=== PATIENT | female | born 1940 | race Caucasian/White ===

== ENCOUNTER → 2016-06-07 | Outpatient (CLI) | payer MEDICARE, BC ==
--- NOTE | 2016-06-08 07:17 | US ---
EXAMINATION TYPE: US kidneys/renal and bladder DATE OF EXAM: 06/07/2016 4:07 PM COMPARISON: Previous study dated 10/18/2014. CLINICAL HISTORY: N30.20 Recurrent UTI. EXAM MEASUREMENTS: Right Kidney: 11.4 x 4.7x 4.4 cm Left Kidney: 14.1 x 4.0 x 3.8 cm Post Void Residual Volume: 17.5 mL TECHNOLOGIST IMPRESSION: wnl Right Kidney: prominent renal pelvis may suggest extrarenal pelvis Left Kidney: larger than right kidney and appears with renal cortex noted lateral to medial at mid po le with dual sinuses suggesting dual collecting system. Bladder: wnl Bilateral Jets seen: right more prominent than left Normal Post Void Residual: Yes IMPRESSION: 1. 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
== END | disposition home or self-care (01) ==
LOC: RADUSWWP 15:26
PROVIDERS: ATTEND Urology
DX: N30.20 Other chronic cystitis without hematuria (principal); Z88.2 Allergy status to sulfonamides; Z88.5 Allergy status to narcotic agent
CPT/HCPCS: 76770

== ENCOUNTER 2017-03-10 13:25 | Observation (INO) | payer MEDICARE, BC ==
[2017-03-10] MEDS ORDERED: PANTOPRAZOLE 40 MG/10 ML VIAL IVP STA (13:43)
[2017-03-10] MEDS ORDERED: SODIUM CHLORIDE 0.9% 1,000 ML IV STA (13:43)
--- NOTE | 2017-03-10 13:46 | ED ---
General Adult HPI - General Chief complaint: GI Bleed Stated complaint: Rectal Bleed Time Seen by Provider: 03/10/17 13:37 Source: patient, RN notes reviewed Mode of arrival: wheelchair Limitations: no limitations - History of Present Illness Initial comments: Patient is a pleasant 76-year-old female presenting to the emergency Department with rectal bleeding. Onset of symptoms was a couple hours ago. Patient did have several hours of diarrhea early this morning. Patient had an episode of the few teaspoons of bright red blood with clots prior to arrival. No abdominal pain. No nausea vomiting. Patient feels slightly lightheaded. No dyspnea. Patient did have similar symptoms years ago associated with a diverticular bleed. - Related Data Home Medications Medication Instructions Recorded Confirmed Aspirin [Adult Low Dose Aspirin EC] 81 mg PO DAILY 05/03/15 03/10/17 Atenolol 25 mg PO QAM 05/03/15 03/10/17 Biotin 5 mg PO DAILY 05/03/15 03/10/17 Cholecalciferol [Vitamin D3] 1,000 units PO DAILY 05/03/15 03/10/17 Levothyroxine Sodium [Synthroid] 50 mcg PO QAM 05/03/15 03/10/17 Naproxen Sodium [Aleve] 220 mg PO BID PRN 05/03/15 03/10/17 Allergies Allergy/AdvReac Type Severity Reaction Status Date / Time Sulfa (Sulfonamide Allergy Rash/Hives Verified 03/10/17 13:50 Antibiotics) codeine AdvReac Nausea & Verified 03/10/17 13:50 Vomiting Review of Systems ROS Statement: Those systems with pertinent positive or pertinent negative responses have been documented in the HPI. ROS Other: All systems not noted in ROS Statement are negative. Constitutional: Denies: fever Eyes: Denies: eye pain ENT: Denies: ear pain Respiratory: Denies: cough Cardiovascular: Denies: chest pain Endocrine: Denies: fatigue Gastrointestinal: Reports: hematochezia. Denies: abdominal pain Genitourinary: Denies: dysuria Musculoskeletal: Denies: back pain Skin: Denies: rash Neurological: Denies: weakness Past Medical History Past Medical History: GI Bleed, Hypertension, Osteoarthritis (OA), Thyroid Disorder Additional Past Medical History / Comment(s): HX OF RECTAL BLEED, "DIFFICULTY SWALLOWING FOOD" NOT ABLE TO FULLY BEND LEFT KNEE,steroid injectection rt knee July 2015. History of Any Multi-Drug Resistant Organisms: None Reported Past Surgical History: Back Surgery, Joint Replacement, Orthopedic Surgery Additional Past Surgical History / Comment(s): CERVICAL FUSION FROM C3-7, LEFT KNEE REPLACED &THEN 3 DIFFERENT REVISIONS,EGD Past Anesthesia/Blood Transfusion Reactions: No Reported Reaction Past Psychological History: No Psychological Hx Reported Smoking Status: Former smoker Past Alcohol Use History: None Reported Past Drug Use History: None Reported - Past Family History Mother Additional Family Medical History / Comment(s): crebral hemorrhage at age 51 Father Additional Family Medical History / Comment(s): emphysema General Exam Limitations: no limitations General appearance: alert, in no apparent distress Head exam: Present: atraumatic Eye exam: Present: normal appearance, PERRL ENT exam: Present: normal oropharynx Neck exam: Present: normal inspection Respiratory exam: Present: normal lung sounds bilaterally Cardiovascular Exam: Present: tachycardia GI/Abdominal exam: Present: soft, normal bowel sounds. Absent: distended, tenderness, pulsatile mass Rectal exam: Present: normal inspection, other (Questionable small amount of blood) Extremities exam: Present: normal inspection Neurological exam: Present: alert Psychiatric exam: Present: normal affect, normal mood Skin exam: Present: normal color Course Vital Signs 03/10/17 03/10/17 03/10/17 13:30 14:00 15:00 Temperature 97.7 F Pulse Rate 114 H 100 83 Respiratory 18 20 20 Rate Blood Pressure 179/107 137/87 134/76 O2 Sat by Pulse 98 96 97 Oximetry Medical Decision Making - Medical Decision Making Patient reevaluated and resting comfortably in bed. Patient updated on results and plan. Case was discussed in detail with Dr. Kilgore, who will admit for Dr. Solis. - Lab Data Result diagrams: 03/10/17 13:53 03/10/17 13:52 Lab Results 03/10/17 03/10/17 03/10/17 Range/Units 13:52 13:52 13:52 WBC (3.8-10.6) k/uL RBC (3.80-5.40) m/uL Hgb (11.4-16.0) gm/dL Hct (34.0-46.0) % MCV (80.0-100.0) fL MCH (25.0-35.0) pg MCHC (31.0-37.0) g/dL RDW (11.5-15.5) % Plt Count (150-450) k/uL Neutrophils % % Lymphocytes % % Monocytes % % Eosinophils % % Basophils % % Neutrophils # (1.3-7.7) k/uL Lymphocytes # (1.0-4.8) k/uL Monocytes # (0-1.0) k/uL Eosinophils # (0-0.7) k/uL Basophils # (0-0.2) k/uL PT (9.0-12.0) sec INR (<1.2) APTT (22.0-30.0) sec Sodium 136 L (137-145) mmol/L Potassium 4.0 (3.5-5.1) mmol/L Chloride 102 (98-107) mmol/L Carbon Dioxide 22 (22-30) mmol/L Anion Gap 12 mmol/L BUN 22 H (7-17) mg/dL Creatinine 0.68 (0.52-1.04) mg/dL Est GFR (MDRD) Af Amer >60 (>60 ml/min/1.73 sqM) Est GFR (MDRD) Non-Af >60 (>60 ml/min/1.73 sqM) Glucose 148 H (74-99) mg/dL Calcium 9.9 (8.4-10.2) mg/dL Total Bilirubin 0.5 (0.2-1.3) mg/dL AST 23 (14-36) U/L ALT 31 (9-52) U/L Alkaline Phosphatase 107 (38-126) U/L Total Creatine Kinase 67 (30-135) U/L CK-MB (CK-2) 2.0 (0.0-2.4) ng/mL CK-MB (CK-2) Rel Index 3.0 Troponin I <0.012 (0.000-0.034) ng/mL Total Protein 7.6 (6.3-8.2) g/dL Albumin 4.5 (3.5-5.0) g/dL Stool Occult Blood Positive H (Negative) Blood Type Blood Type Recheck Antibody Screen Spec Expiration Date 03/10/17 03/10/17 03/10/17 Range/Units 13:52 13:52 13:53 WBC 8.3 (3.8-10.6) k/uL RBC 4.95 (3.80-5.40) m/uL Hgb 15.4 (11.4-16.0) gm/dL Hct 45.2 (34.0-46.0) % MCV 91.2 (80.0-100.0) fL MCH 31.1 (25.0-35.0) pg MCHC 34.1 (31.0-37.0) g/dL RDW 12.6 (11.5-15.5) % Plt Count 277 (150-450) k/uL Neutrophils % 86 % Lymphocytes % 8 % Monocytes % 3 % Eosinophils % 2 % Basophils % 0 % Neutrophils # 7.2 (1.3-7.7) k/uL Lymphocytes # 0.7 L (1.0-4.8) k/uL Monocytes # 0.3 (0-1.0) k/uL Eosinophils # 0.2 (0-0.7) k/uL Basophils # 0.0 (0-0.2) k/uL PT 10.4 (9.0-12.0) sec INR 1.1 (<1.2) APTT 22.4 (22.0-30.0) sec Sodium (137-145) mmol/L Potassium (3.5-5.1) mmol/L Chloride (98-107) mmol/L Carbon Dioxide (22-30) mmol/L Anion Gap mmol/L BUN (7-17) mg/dL Creatinine (0.52-1.04) mg/dL Est GFR (MDRD) Af Amer (>60 ml/min/1.73 sqM) Est GFR (MDRD) Non-Af (>60 ml/min/1.73 sqM) Glucose (74-99) mg/dL Calcium (8.4-10.2) mg/dL Total Bilirubin (0.2-1.3) mg/dL AST (14-36) U/L ALT (9-52) U/L Alkaline Phosphatase (38-126) U/L Total Creatine Kinase (30-135) U/L CK-MB (CK-2) (0.0-2.4) ng/mL CK-MB (CK-2) Rel Index Troponin I (0.000-0.034) ng/mL Total Protein (6.3-8.2) g/dL Albumin (3.5-5.0) g/dL Stool Occult Blood (Negative) Blood Type AB Positive Blood Type Recheck AB Pos Antibody Screen NEGATIVE Spec Expiration Date 03/13/2017 - 8 Disposition Clinical Impression: Lower gastrointestinal hemorrhage Disposition: ADMITTED IP TO THIS [facility] Condition: Stable Referrals: Severino Solis MD [Primary Care Provider] - 1-2 days Decision Time: 15:31
[2017-03-10 14:00] LABS: Basophils % (A) 0 %; CH 31.5; CHCM 34.7; Eosinophils # (A) 0.2 k/uL (0-0.7); Eosinophils % (A) 2 %; HCT 45.2 % (34.0-46.0); HDW 2.54; HGB 15.4 gm/dL (11.4-16.0); Luc # (Auto) 0.07; Luc % (Auto) 1; Lymphocytes # (A) 0.7 k/uL (1.0-4.8); Lymphocytes % (A) 8 %; MCH 31.1 pg (25.0-35.0); MCHC 34.1 g/dL (31.0-37.0); MCV 91.2 fL (80.0-100.0); Mean Platelet Volume 6.5; Monocytes # (A) 0.3 k/uL (0-1.0); Monocytes % (A) 3 %; Neutrophils # (A) 7.2 k/uL (1.3-7.7); Neutrophils % (A) 86 %; RBC 4.95 m/uL (3.80-5.40); RDW 12.6 % (11.5-15.5); WBC 8.3 k/uL (3.8-10.6); WBC (Perox) 8.15
[2017-03-10 14:10] LABS: INR 1.1 (<1.2); Partial Thromboplastin Time 22.4 sec (22.0-30.0); Prothrombin Time 10.4 sec (9.0-12.0)
[2017-03-10 14:11] LABS: ALT 31 U/L (9-52); AST 23 U/L (14-36); Alkaline Phosphatase 107 U/L (38-126); Anion Gap 12 mmol/L; Blood Urea Nitrogen 22 mg/dL (7-17); Calcium 9.9 mg/dL (8.4-10.2); Carbon Dioxide 22 mmol/L (22-30); Chloride 102 mmol/L (98-107); Glucose 148 mg/dL (74-99); Non-African American GFR(MDRD) >60 (>60 ml/min/1.73 sqM); Sodium 136 mmol/L (137-145); Total Bilirubin 0.5 mg/dL (0.2-1.3); Total Protein 7.6 g/dL (6.3-8.2)
[2017-03-10 14:23] LABS: Creatine Kinase 67 U/L (30-135)
[2017-03-10 14:35] LABS: Troponin I <0.012 ng/mL (0.000-0.034)
[2017-03-10] MEDS ORDERED: NALOXONE 0.4 MG/ML 1 ML VIAL IV PRN (15:31)
[2017-03-10 17:24] VITALS: BMI 25.6
[2017-03-10] MEDS: ACETAMINOPHEN TAB 500 MG TAB PO PRN (18:40)
[2017-03-10] MEDS: LEVOTHYROXINE 50 MCG TAB PO SCH (18:46)
[2017-03-10] MEDS: ATENOLOL 25 MG TAB PO SCH (18:46)
[2017-03-10] MEDS: SODIUM CHLORIDE 0.9% 1,000 ML IV SCH (18:46)
[2017-03-10 19:36] LABS: CH 30.8; CHCM 32.6; HCT 43.7 % (34.0-46.0); HDW 2.31; HGB 13.9 gm/dL (11.4-16.0); MCH 30.4 pg (25.0-35.0); MCHC 31.9 g/dL (31.0-37.0); MCV 95.2 fL (80.0-100.0); Mean Platelet Volume 7.3; RBC 4.59 m/uL (3.80-5.40); WBC 5.7 k/uL (3.8-10.6)
[2017-03-11 02:21] LABS: Basophils % (A) 0 %; CH 31.2; CHCM 34.1; Eosinophils # (A) 0.2 k/uL (0-0.7); Eosinophils % (A) 3 %; HDW 2.48; HGB 13.9 gm/dL (11.4-16.0); Luc % (Auto) 1; Lymphocytes # (A) 0.9 k/uL (1.0-4.8); Lymphocytes % (A) 12 %; MCH 30.4 pg (25.0-35.0); MCV 92.1 fL (80.0-100.0); Mean Platelet Volume 6.5; Monocytes # (A) 0.4 k/uL (0-1.0); Monocytes % (A) 5 %; Neutrophils # (A) 6.3 k/uL (1.3-7.7); Neutrophils % (A) 79 %; RBC 4.57 m/uL (3.80-5.40); RDW 12.8 % (11.5-15.5); WBC (Perox) 7.83
[2017-03-11] MEDS ORDERED: ONDANSETRON 4 MG/2 ML VIAL IVP PRN (04:58)
[2017-03-11 06:16] LABS: Basophils % (A) 0 %; CH 31.2; CHCM 32.2; Eosinophils # (A) 0.2 k/uL (0-0.7); Eosinophils % (A) 3 %; HCT 47.9 % (34.0-46.0); HGB 14.8 gm/dL (11.4-16.0); Luc # (Auto) 0.07; Luc % (Auto) 1; Lymphocytes # (A) 0.8 k/uL (1.0-4.8); Lymphocytes % (A) 10 %; MCH 30.2 pg (25.0-35.0); Monocytes # (A) 0.4 k/uL (0-1.0); Monocytes % (A) 5 %; Neutrophils # (A) 6.4 k/uL (1.3-7.7); Neutrophils % (A) 81 %; RBC 4.92 m/uL (3.80-5.40); RDW 14.3 % (11.5-15.5); WBC 7.9 k/uL (3.8-10.6); WBC (Perox) 7.93
[2017-03-11 06:20] LABS: MCV 97.3 fL (80.0-100.0)
[2017-03-11] MEDS: LEVOTHYROXINE 50 MCG TAB PO SCH (06:55)
[2017-03-11] MEDS ORDERED: PANTOPRAZOLE 40 MG/10 ML VIAL IV SCH (09:00)
--- NOTE | 2017-03-11 10:59 | P.HPIM ---
History of Present Illness H&P Date: 03/11/17 Chief Complaint: Blood per rectum This is a 76-year-old female with a known past medical history of a diverticular bleed in 2069 which she required ICU care and blood transfusions. She also has a history of hypertension, hypothyroidism, esophageal strictures requiring dilation and peptic ulcer disease. Patient reports yesterday morning around 5:00 she started to have diarrhea multiple episodes as well as some vomiting. And then around 9:00 she started to have blood in the stools. She had one bloody bowel movement with about a couple of blood. Then continued to have bleeding per rectum. Therefore she came into the emergency room she was concerned about having another severe GI bleed. Hemoglobin on admission 15.4 did drop down to 13.9 and now she is at 14.8. Per patient and nursing staff patient is still having small amounts of red blood per rectum about a teaspoon in size. She's been placed on IV Protonix. Stool for occult blood is positive. She's no longer having any diarrhea or vomiting. Last colonoscopy was about 7 years ago. She does report lower abdominal pain during bowel movements. She denies any fever chills or sweats. Denies any chest pain or shortness of breath. Denies any burning with urination. Patient denies being on antibiotics recently or any sick contacts. Denies any fevers chills or sweats. GI service has been consulted. Monitor CBC closely. Continue with IV fluid hydration. Review of Systems Please refer to HPI otherwise unremarkable Past Medical History Past Medical History: GI Bleed, Hypertension, Osteoarthritis (OA), Thyroid Disorder Additional Past Medical History / Comment(s): HX OF DIVERTICULAR BLEED, "DIFFICULTY SWALLOWING FOOD"- esopagus stretched, NOT ABLE TO FULLY BEND LEFT KNEE,steroid injectection rt knee January 2017 History of Any Multi-Drug Resistant Organisms: None Reported Past Surgical History: Back Surgery, Section, Hysterectomy, Joint Replacement, Orthopedic Surgery, Tonsillectomy Additional Past Surgical History / Comment(s): CERVICAL FUSION FROM C3-7, LEFT KNEE REPLACED &THEN 3 DIFFERENT REVISIONS,EGD Past Anesthesia/Blood Transfusion Reactions: No Reported Reaction Past Psychological History: No Psychological Hx Reported Smoking Status: Former smoker Past Alcohol Use History: None Reported Additional Past Alcohol Use History / Comment(s): QUIT SMOKING 2006, STARTED AT AGE 34 (1974) SMOKED 1PPD ON AVERAGE Past Drug Use History: None Reported - Past Family History Mother Additional Family Medical History / Comment(s): crebral hemorrhage at age 51 Father Additional Family Medical History / Comment(s): emphysema Medications and Allergies Home Medications Medication Instructions Recorded Confirmed Type Aspirin [Adult Low Dose Aspirin EC] 81 mg PO DAILY 05/03/15 03/10/17 History Atenolol 25 mg PO QAM 05/03/15 03/10/17 History Biotin 5 mg PO DAILY 05/03/15 03/10/17 History Cholecalciferol [Vitamin D3] 1,000 units PO DAILY 05/03/15 03/10/17 History Levothyroxine Sodium [Synthroid] 50 mcg PO QAM 05/03/15 03/10/17 History Naproxen Sodium [Aleve] 220 mg PO BID PRN 05/03/15 03/10/17 History Omeprazole 20 mg PO DAILY 03/10/17 03/10/17 History Allergies Allergy/AdvReac Type Severity Reaction Status Date / Time Sulfa (Sulfonamide Allergy Rash/Hives Verified 03/10/17 13:50 Antibiotics) codeine AdvReac Nausea & Verified 03/10/17 13:50 Vomiting Physical Exam Vitals: Vital Signs Temp Pulse Pulse Resp BP BP Pulse Ox 03/11/17 08:00 97.8 F 57 L 16 131/64 97 03/11/17 05:38 58 L 18 149/64 96 03/11/17 03:52 18 03/11/17 00:14 98.6 F 72 18 149/89 97 03/10/17 23:20 16 03/10/17 20:00 98.7 F 91 16 168/96 97 03/10/17 16:13 98.1 F 78 16 130/88 95 03/10/17 15:55 98.7 F 99 20 137/87 99 03/10/17 15:00 83 20 134/76 97 03/10/17 14:00 100 20 137/87 96 03/10/17 13:30 97.7 F 114 H 18 179/107 98 Intake and Output 03/10/17 03/11/17 03/11/17 22:59 06:59 14:59 Output Total 4 Balance -4 Output: Urine 4 Other: Voiding Method Toilet Toilet Toilet # Voids 2 # Bowel Movements 4 Weight 63.503 kg Head normocephalic Neck supple Lungs clear to auscultation bilaterally no wheezing or crackles Heart regular rate and rhythm S1-S2, no rub or gallop Abdomen is soft nontender nondistended positive bowel sounds no hepatosplenomegaly Extremities no edema Neuro alert and orientated to 3 Results CBC & Chem 7: 03/11/17 05:57 03/10/17 13:52 Labs: Abnormal Lab Results - Last 24 Hours (Table) 03/10/17 03/10/17 03/10/17 Range/Units 13:52 13:52 13:53 Hct (34.0-46.0) % Lymphocytes # 0.7 L (1.0-4.8) k/uL Sodium 136 L (137-145) mmol/L BUN 22 H (7-17) mg/dL Glucose 148 H (74-99) mg/dL Stool Occult Blood Positive H (Negative) 03/11/17 03/11/17 Range/Units 01:48 05:57 Hct 47.9 H (34.0-46.0) % Lymphocytes # 0.9 L 0.8 L (1.0-4.8) k/uL Sodium (137-145) mmol/L BUN (7-17) mg/dL Glucose (74-99) mg/dL Stool Occult Blood (Negative) Thrombosis Risk Factor Assmnt - Choose All That Apply Any of the Below Risk Factors Present?: Yes Each Factor Represents 1 point: Obesity (BMI >25) Other Risk Factors: Yes Each Risk Factor Represents 3 Points: Age 75 years or older Thrombosis Risk Factor Assessment Total Risk Factor Score: 4 Thrombosis Risk Factor Assessment Level: Moderate Risk Assessment and Plan Assessment: 1. Acute lower GI bleed with bright red blood per rectum. Hemoglobin is stable at 14.8. Could be secondary to a diverticular bleed. Await GI evaluation. Continue with IV Protonix. GI service has been consulted for possible colonoscopy. Patient does have a known history of previous diverticular bleed. Check CBC at noon. Discontinue aspirin and discontinue Aleve. Continue IV fluid hydration 2. Vomiting and diarrhea: Exact etiology unclear. Now resolved. 3. History of esophageal stricture requiring dilation 4. Essential hypertension: Resume atenolol 5. Hypothyroidism continue Synthroid 6. History of peptic ulcer disease DVT prophylaxis SCDs and GI prophylaxis Protonix Time with Patient: Greater than 30 (Greater than 50% of the total time spent in counseling and coordination of care.I performed an examination of the patient and discussed their management with the physician Heat Sealing Machine Operator. I have reviewed the Physician Heat Sealing Machine Operator's notes and agree with the documented findings and plan of care)
[2017-03-11 12:09] LABS: CH 31.2; CHCM 33.7; HCT 42.1 % (34.0-46.0); HDW 2.48; HGB 13.8 gm/dL (11.4-16.0); MCH 30.6 pg (25.0-35.0); MCHC 32.9 g/dL (31.0-37.0); MCV 93.2 fL (80.0-100.0); Mean Platelet Volume 6.9; RBC 4.52 m/uL (3.80-5.40); RDW 12.8 % (11.5-15.5); WBC 7.5 k/uL (3.8-10.6)
[2017-03-11] MEDS: ATENOLOL 25 MG TAB PO SCH (12:09)
[2017-03-11] MEDS: SODIUM CHLORIDE 0.9% 1,000 ML IV SCH (18:57)
[2017-03-11] MEDS: ACETAMINOPHEN TAB 500 MG TAB PO PRN (20:43)
[2017-03-12] MEDS: LEVOTHYROXINE 50 MCG TAB PO SCH (06:37)
[2017-03-12 07:24] LABS: Basophils % (A) 0 %; CH 31.3; CHCM 33.8; Eosinophils # (A) 0.4 k/uL (0-0.7); Eosinophils % (A) 6 %; HCT 42.5 % (34.0-46.0); HGB 13.7 gm/dL (11.4-16.0); Luc % (Auto) 2; Lymphocytes # (A) 1.2 k/uL (1.0-4.8); Lymphocytes % (A) 20 %; MCH 30.1 pg (25.0-35.0); MCHC 32.3 g/dL (31.0-37.0); MCV 93.2 fL (80.0-100.0); Mean Platelet Volume 6.5; Monocytes # (A) 0.4 k/uL (0-1.0); Monocytes % (A) 7 %; Neutrophils # (A) 3.8 k/uL (1.3-7.7); Neutrophils % (A) 65 %; RBC 4.56 m/uL (3.80-5.40); RDW 12.9 % (11.5-15.5); WBC 5.8 k/uL (3.8-10.6); WBC (Perox) 5.78
[2017-03-12 07:43] LABS: ALT 31 U/L (9-52); AST 19 U/L (14-36); Alkaline Phosphatase 86 U/L (38-126); Blood Urea Nitrogen 10 mg/dL (7-17); Calcium 9.3 mg/dL (8.4-10.2); Carbon Dioxide 23 mmol/L (22-30); Glucose 102 mg/dL (74-99); Non-African American GFR(MDRD) >60 (>60 ml/min/1.73 sqM); Total Bilirubin 0.8 mg/dL (0.2-1.3); Total Protein 6.3 g/dL (6.3-8.2)
[2017-03-12] MEDS: CHOLECALCIFEROL 1,000 UNIT TAB PO SCH (08:14)
[2017-03-12] MEDS: ATENOLOL 25 MG TAB PO SCH (08:14)
[2017-03-12] MEDS: PANTOPRAZOLE 40 MG TABLET PO SCH (08:14)
[2017-03-12] MEDS ORDERED: PEG 3350-NA SULF,BICARB,CL/KCL 4,000 ML BOTTLE PO STA (08:29)
--- NOTE | 2017-03-12 08:31 | P.CONS ---
History of Present Illness - Reason for Consult Consult date: 03/12/17 rectal bleeding Requesting physician: Severino Solis - History of Present Illness 76-year-old female presented with acute painless bleeding that started Saturday bright red per rectum. Lasted for about 4 hours. She has a history of diverticulosis with massive diverticular bleed about 10 years ago. Last colonoscopy screening 7 years ago. Presently denies pain. No further bloody bowel movement. Denies fever chills hematemesis or melena. Hemoglobin 13.7- 14.8. BUN 22. Review of Systems Constitutional: Denies fever, chills, sweats, weight gain, or loss. HEENT: Negative for migraines, blurred vision or loss, earaches, drainage, tinnitus, oral mucosal lesions, dysphagia, or odynophagia. CARDIAC: Hypertension. Negative for chest pain, arrhythmias, or palpitation. RESPIRATORY: Negative for shortness of breath, hemoptysis, cough, or sputum production. GI: See HPI for pertinent findings. : Negative for hematuria, urgency, frequency, polyuria, or dysuria. GYNc: Denies possibility of . Negative vaginal discharge. MUSCULOSKELETAL: Negative for muscle aches, swelling, arthritis, and arthralgias. NEUROLOGIC: Negative for stroke or TIA. ENDOCRINE: Negative for thyroid problems. SKIN: Negative for rash or itching. PSYCHIATRIC: Negative history for depression and anxiety Past Medical History Past Medical History: GI Bleed, Hypertension, Osteoarthritis (OA), Thyroid Disorder Additional Past Medical History / Comment(s): HX OF DIVERTICULAR BLEED, "DIFFICULTY SWALLOWING FOOD"- esopagus stretched, NOT ABLE TO FULLY BEND LEFT KNEE,steroid injectection rt knee January 2017 History of Any Multi-Drug Resistant Organisms: None Reported Past Surgical History: Back Surgery, Section, Hysterectomy, Joint Replacement, Orthopedic Surgery, Tonsillectomy Additional Past Surgical History / Comment(s): CERVICAL FUSION FROM C3-7, LEFT KNEE REPLACED &THEN 3 DIFFERENT REVISIONS,EGD Past Anesthesia/Blood Transfusion Reactions: No Reported Reaction Past Psychological History: No Psychological Hx Reported Smoking Status: Former smoker Past Alcohol Use History: None Reported Additional Past Alcohol Use History / Comment(s): QUIT SMOKING 2006, STARTED AT AGE 34 (1974) SMOKED 1PPD ON AVERAGE Past Drug Use History: None Reported - Past Family History Mother Additional Family Medical History / Comment(s): crebral hemorrhage at age 51 Father Additional Family Medical History / Comment(s): emphysema Medications and Allergies Home Medications Medication Instructions Recorded Confirmed Type Aspirin [Adult Low Dose Aspirin EC] 81 mg PO DAILY 05/03/15 03/10/17 History Atenolol 25 mg PO QAM 05/03/15 03/10/17 History Biotin 5 mg PO DAILY 05/03/15 03/10/17 History Cholecalciferol [Vitamin D3] 1,000 units PO DAILY 05/03/15 03/10/17 History Levothyroxine Sodium [Synthroid] 50 mcg PO QAM 05/03/15 03/10/17 History Naproxen Sodium [Aleve] 220 mg PO BID PRN 05/03/15 03/10/17 History Omeprazole 20 mg PO DAILY 03/10/17 03/10/17 History Allergies Allergy/AdvReac Type Severity Reaction Status Date / Time Sulfa (Sulfonamide Allergy Rash/Hives Verified 03/10/17 13:50 Antibiotics) codeine AdvReac Nausea & Verified 03/10/17 13:50 Vomiting Physical Exam Vitals: Vital Signs Temp Pulse Resp BP BP Pulse Ox 03/12/17 08:00 97.4 F L 56 L 18 130/66 97 03/12/17 04:00 98.1 F 67 18 137/76 99 03/12/17 00:00 18 03/11/17 20:00 18 03/11/17 19:52 98.1 F 59 L 18 171/59 94 L 03/11/17 16:00 98.7 F 60 16 140/72 94 L 03/11/17 12:00 56 L 16 03/11/17 11:55 98 F 56 L 16 122/68 96 Intake and Output 03/11/17 03/12/17 03/12/17 22:59 06:59 14:59 Intake Total 236 Balance 236 Intake: Oral 236 Other: Voiding Method Toilet Toilet # Voids 2 2 General appearance: The patient is alert, oriented, in no acute distress. HET: Head is normocephalic and atraumatic. Pupils are equal and reactive. Oropharynx is clear without lesions. Neck: Supple without lymphadenopathy. Trachea midline. Heart: S1 S2. Regular rate and rhythm. Lungs: No crackles or wheezes are heard. Abdomen: Soft, nontender, nondistended with bowel sounds. No peritoneal signs. No palpable organomegaly or masses. Extremities: Normal skin color and turgor. No cyanosis, rash, ulceration, clubbing, or edema. Radial and pedal pulses are 2/4 bilaterally. Neurological: No focal deficits. Strength and sensation are grossly intact. Results CBC & Chem 7: 03/12/17 06:20 03/12/17 06:20 Labs: Abnormal Lab Results - Last 24 Hours (Table) 03/12/17 Range/Units 06:20 Glucose 102 H (74-99) mg/dL Assessment and Plan (1) Lower gastrointestinal hemorrhage Narrative/Plan: Suspect diverticular bleed Current Visit: Yes Status: Acute Code(s): K92.2 - GASTROINTESTINAL HEMORRHAGE, UNSPECIFIED SNOMED Code(s): 36243837 (2) Diverticulosis of colon Current Visit: Yes Status: Chronic Code(s): K57.30 - DVRTCLOS OF LG INT W/O PERFORATION OR ABSCESS W/O BLEEDING SNOMED Code(s): 012981357 Plan: 1. Colonoscopy screening this afternoon. The dandy tender has discussed the risks, benefits and alternative therapies for the above-mentioned procedure and for both sedation/analgesia as well as necessary blood product administration, if indicated, as they pertain to this patient. The patient has indicated understanding and acceptance of the risks and procedures discussed. Thank you for this kind referral and the opportunity to participate in the care of your patient. This consultation was discussed with Dr. Arevalo. The impression and plan of care have been directed as dictated.
[2017-03-12 08:38] LABS: Anion Gap 7 mmol/L; Chloride 107 mmol/L (98-107); Potassium 3.9 mmol/L (3.5-5.1); Sodium 137 mmol/L (137-145)
--- NOTE | 2017-03-12 09:43 | P.PN ---
Subjective Progress Note Date: 03/12/17 This is a 76-year-old female with a known past medical history of a diverticular bleed in 2069 which she required ICU care and blood transfusions. She also has a history of hypertension, hypothyroidism, esophageal strictures requiring dilation and peptic ulcer disease. Patient reports yesterday morning around 5:00 she started to have diarrhea multiple episodes as well as some vomiting. And then around 9:00 she started to have blood in the stools. She had one bloody bowel movement with about a couple of blood. Then continued to have bleeding per rectum. Therefore she came into the emergency room she was concerned about having another severe GI bleed. Hemoglobin on admission 15.4 did drop down to 13.9 and now she is at 14.8. Per patient and nursing staff patient is still having small amounts of red blood per rectum about a teaspoon in size. She's been placed on IV Protonix. Stool for occult blood is positive. She's no longer having any diarrhea or vomiting. Last colonoscopy was about 7 years ago. She does report lower abdominal pain during bowel movements. She denies any fever chills or sweats. Denies any chest pain or shortness of breath. Denies any burning with urination. Patient denies being on antibiotics recently or any sick contacts. Denies any fevers chills or sweats. GI service has been consulted. Monitor CBC closely. Continue with IV fluid hydration. 03/12/2017 patient reports still having blood in stool as of 2:00 this morning. She is receiving GoLYTELY prep currently. She is scheduled for colonoscopy this afternoon. Denies any abdominal pain. Denies any chest pain sugars breath. Denies any nausea or vomiting. Denies any burning with urination. Objective - Vital Signs Vital signs: Vital Signs Temp 97.4 F L 03/12/17 08:00 Pulse 56 L 03/12/17 08:00 Resp 18 03/12/17 08:00 BP 130/66 03/12/17 08:00 Pulse Ox 97 03/12/17 08:00 Intake & Output 03/11/17 03/12/17 03/12/17 18:59 06:59 18:59 Intake Total 472 Balance 472 Intake: Oral 472 Other: Voiding Method Toilet Toilet Toilet # Voids 2 2 - Exam Head normocephalic Neck supple Lungs clear to auscultation bilaterally no wheezing or crackles Heart regular rate and rhythm S1-S2, no rub or gallop Abdomen is soft nontender nondistended positive bowel sounds no hepatosplenomegaly Extremities no edema Neuro alert and orientated to 3 - Labs CBC & Chem 7: 03/12/17 06:20 03/12/17 06:20 Labs: Abnormal Lab Results - Last 24 Hours (Table) 03/12/17 Range/Units 06:20 Glucose 102 H (74-99) mg/dL Assessment and Plan Assessment: 1. Acute lower GI bleed with bright red blood per rectum. Hemoglobin is stable at 14.8. Could be secondary to a diverticular bleed. Continue with IV Protonix. Patient does have a known history of previous diverticular bleed. Discontinue aspirin and discontinue Aleve. Continue IV fluid hydration. Patient's hemoglobin is stable. She is scheduled for colonoscopy this afternoon 2. Vomiting and diarrhea: Exact etiology unclear. Now resolved. 3. History of esophageal stricture requiring dilation 4. Essential hypertension: Resume atenolol 5. Hypothyroidism continue Synthroid 6. History of peptic ulcer disease DVT prophylaxis SCDs and GI prophylaxis Protonix I performed an examination of the patient and discussed their management with the physician Home Care And Home Health Aides Teacher. I have reviewed the Physician Home Care And Home Health Aides Teacher's notes and agree with the documented findings and plan of care
[2017-03-12] MEDS ORDERED: PROPOFOL 10 MG/ML 20 ML VIAL IV ONE (15:34)
[2017-03-12] MEDS ORDERED: LIDOCAINE 1% INJ 10MG/ML (20 ML MDV) ONE (15:34)
[2017-03-12] MEDS ORDERED: SODIUM CHLORIDE 0.9% 500 ML IV ONE (15:35)
--- NOTE | 2017-03-12 16:19 | P.PCN ---
Date of Procedure: 03/12/17 Procedure(s) Performed: Procedure: Colonoscopy and biopsy. Preoperative diagnosis: GI bleeding. Postoperative diagnosis: 1. Diverticulosis with no evidence of acute diverticulitis, strictures or bleeding. 2. Segment of colitis in the distal sigmoid with skip areas raising possibility of infectious, ischemic or self- limited colitis with no active bleeding. 3. No polyps or tumors. 4. Biopsy obtained in the sigmoid. Preparation: GoLYTELY prep. Sedation: Was provided by anesthesia. Brief clinical history: The patient is a 76-year-old female who presented with acute painless bleeding that started March 10 as bright red per rectum. Lasted for about 4 hours. She has a history of diverticulosis with massive diverticular bleed about 10 years ago. Last colonoscopy screening 7 years ago. Presently denies pain. No further bloody bowel movement. Denies fever chills hematemesis or melena. Hemoglobin 13.7-14.8. BUN 22. The details are summarized in the history and physical and dictated consultations and progress notes. Procedure: With the patient on her left lateral decubitus position and after informed consent and adequate sedation, the perianal area was inspected and it did not show any fissures or fistulas. There were no masses felt on digital rectal examination. The Olympus CFQ 160L video colonoscope was then inserted in the rectum in the usual fashion and advanced to the cecum. There were multiple diverticular orifices seen scattered along the length of the bowel with no evidence of acute diverticulitis, strictures or bleeding. The distal sigmoid showed a segment of colitis with edema, erythema, friability and submucosal hemorrhage with skip areas but no spontaneous bleeding probably representing resolving ischemic, infectious or self-limited colitis. The involved area was in the vicinity of diverticular orifices but not typical of diverticulitis. There were no polyps or tumors or any spontaneous bleeding. I took pictures of the involved segment as well as multiple biopsies. I retroflexed the endoscope in the rectum before the endoscope was withdrawn. The patient tolerated the procedure well. Plan: The patient was reassured. Will allow low-residue diet and monitor her progress. Further plans based on her course.
[2017-03-12] MEDS: SODIUM CHLORIDE 0.9% 1,000 ML IV SCH (18:25)
[2017-03-12] MEDS: ACETAMINOPHEN TAB 500 MG TAB PO PRN (18:50)
[2017-03-13 06:45] LABS: Basophils % (A) 0 %; CH 31.2; CHCM 33.9; Eosinophils # (A) 0.3 k/uL (0-0.7); Eosinophils % (A) 4 %; HCT 39.9 % (34.0-46.0); HDW 2.49; HGB 13.3 gm/dL (11.4-16.0); Luc # (Auto) 0.09; Luc % (Auto) 1; Lymphocytes % (A) 13 %; MCH 30.8 pg (25.0-35.0); MCHC 33.4 g/dL (31.0-37.0); MCV 92.4 fL (80.0-100.0); Mean Platelet Volume 6.6; Monocytes # (A) 0.4 k/uL (0-1.0); Monocytes % (A) 5 %; Neutrophils % (A) 77 %; RBC 4.32 m/uL (3.80-5.40); RDW 12.8 % (11.5-15.5); WBC 7.7 k/uL (3.8-10.6); WBC (Perox) 7.84
[2017-03-13 06:57] LABS: ALT 40 U/L (9-52); AST 22 U/L (14-36); Alkaline Phosphatase 86 U/L (38-126); Anion Gap 9 mmol/L; Blood Urea Nitrogen 19 mg/dL (7-17); Calcium 9.7 mg/dL (8.4-10.2); Carbon Dioxide 25 mmol/L (22-30); Chloride 104 mmol/L (98-107); Glucose 102 mg/dL (74-99); Non-African American GFR(MDRD) >60 (>60 ml/min/1.73 sqM); Potassium 4.2 mmol/L (3.5-5.1); Sodium 138 mmol/L (137-145); Total Bilirubin 0.5 mg/dL (0.2-1.3); Total Protein 6.3 g/dL (6.3-8.2)
[2017-03-13] MEDS: LEVOTHYROXINE 50 MCG TAB PO SCH (06:59)
[2017-03-13] MEDS: ACETAMINOPHEN TAB 500 MG TAB PO PRN (07:01)
[2017-03-13 07:14] LABS: Appearance,Urine Turbid (Clear); Bacteria,Urine Rare /hpf; Bilirubin,Urine Negative (Negative); Glucose,Urine (UA) Negative (Negative); Ketones,Urine Negative (Negative); Leukocyte Esterase,Urine Large (Negative); Nitrite,Urine Positive (Negative); PH, Urine 5.5 (5.0-8.0); Particle Count 28390; Protein,Urine Trace (Negative); RBC,Urine 8 /hpf (0-5); Specific Gravity,Urine 1.011 (1.001-1.035); Squamous Epithelial Cell,Urine 2 /hpf (0-4); UA Billing (MACRO vs. MICRO) MICRO; Urobilinogen,Urine <2.0 mg/dL (<2.0); WBC,Urine >182 /hpf (0-5)
[2017-03-13 08:03] VITALS: BP 177/76; PULSE 54; RESP 16; TEMP 98
[2017-03-13] MEDS: CHOLECALCIFEROL 1,000 UNIT TAB PO SCH (09:09)
[2017-03-13] MEDS: PANTOPRAZOLE 40 MG TABLET PO SCH (09:09)
[2017-03-13] MEDS: ATENOLOL 25 MG TAB PO SCH (09:09)
[2017-03-13] MEDS ORDERED: cefTRIAXone IN SWFI 1,000 MG/10 ML SYRINGE IVP STA (10:22)
--- NOTE | 2017-03-13 11:55 | P.DS ---
Providers Date of admission: 03/10/17 15:33 Expected date of discharge: 03/13/17 Attending physician: Severino Solis Primary care physician: Severino Solis [facility] Hospital Course: Diagnoses on discharge: 1. Acute lower GI bleed with bright red blood per rectum. Hemoglobin is stable at 14.8. Could be secondary to a diverticular bleed. Continue with IV Protonix. Patient does have a known history of previous diverticular bleed. Discontinue aspirin and discontinue Aleve. Continue IV fluid hydration. Patient's hemoglobin is stable. She is scheduled for colonoscopy this afternoon 2. Vomiting and diarrhea: Exact etiology unclear. Now resolved. 3. History of esophageal stricture requiring dilation 4. Essential hypertension: Resume atenolol 5. Hypothyroidism continue Synthroid 6. History of peptic ulcer disease Hospital course: This is a 76-year-old female with a known past medical history of a diverticular bleed in 2069 which she required ICU care and blood transfusions. She also has a history of hypertension, hypothyroidism, esophageal strictures requiring dilation and peptic ulcer disease. Patient reports yesterday morning around 5:00 she started to have diarrhea multiple episodes as well as some vomiting. And then around 9:00 she started to have blood in the stools. She had one bloody bowel movement with about a couple of blood. Then continued to have bleeding per rectum. Therefore she came into the emergency room she was concerned about having another severe GI bleed. Hemoglobin on admission 15.4 did drop down to 13.9 and now she is at 14.8. Per patient and nursing staff patient is still having small amounts of red blood per rectum about a teaspoon in size. She's been placed on IV Protonix. Stool for occult blood is positive. She's no longer having any diarrhea or vomiting. Last colonoscopy was about 7 years ago. She does report lower abdominal pain during bowel movements. She denies any fever chills or sweats. Denies any chest pain or shortness of breath. Denies any burning with urination. Patient denies being on antibiotics recently or any sick contacts. Denies any fevers chills or sweats. GI service has been consulted. Monitor CBC closely. Continue with IV fluid hydration. 03/12/2017 patient reports still having blood in stool as of 2:00 this morning. She is receiving GoLYTELY prep currently. She is scheduled for colonoscopy this afternoon. Denies any abdominal pain. Denies any chest pain sugars breath. Denies any nausea or vomiting. Denies any burning with urination. 03/13/2017 patient is alert and oriented no evidence of any further GI bleed, HGB stable, patient had a colonoscopy with Dr Arevalo that revealed diverticulosis with no evidence of acute diverticulitis, strictures or bleeding. Patient has evidence of UTI she was given a dose of IV Rocephin, she can be discharged home today, follow up in the office on Saturday. Patient Condition at Discharge: Stable Plan - Discharge Summary Discharge Rx Participant: Yes New Discharge Prescriptions: New Acetaminophen Tab [Tylenol] 500 mg PO Q6HR PRN tab PRN Reason: Fever and/ or Mild Pain Continue Levothyroxine Sodium [Synthroid] 50 mcg PO QAM Cholecalciferol [Vitamin D3] 1,000 units PO DAILY Biotin 5 mg PO DAILY Atenolol 25 mg PO QAM Omeprazole 20 mg PO DAILY Discontinued Naproxen Sodium [Aleve] 220 mg PO BID PRN PRN Reason: Pain Aspirin [Adult Low Dose Aspirin EC] 81 mg PO DAILY Discharge Medication List Atenolol 25 mg PO QAM 05/03/15 [History] Biotin 5 mg PO DAILY 05/03/15 [History] Cholecalciferol [Vitamin D3] 1,000 units PO DAILY 05/03/15 [History] Levothyroxine Sodium [Synthroid] 50 mcg PO QAM 05/03/15 [History] Omeprazole 20 mg PO DAILY 03/10/17 [History] Acetaminophen Tab [Tylenol] 500 mg PO Q6HR PRN tab 03/13/17 [Rx] Follow up Appointment(s)/Referral(s): Severino Solis MD [Primary Care Provider] - 1-2 days
== END 2017-03-13 13:09 | disposition home or self-care (01) ==
LOC: EC 13:25 → 3OBS 15:33
PROVIDERS: ADMIT Internal Medicine; ATTEND Internal Medicine
DX: K55.039 Acute (reversible) ischemia of large intestine, extent unspecified (principal); I10 Essential (primary) hypertension; M19.90 Unspecified osteoarthritis, unspecified site; E66.9 Obesity, unspecified; E03.9 Hypothyroidism, unspecified; N39.0 Urinary tract infection, site not specified; Z79.82 Long term (current) use of aspirin; Z79.899 Other long term (current) drug therapy; Z88.5 Allergy status to narcotic agent; Z88.2 Allergy status to sulfonamides; Z87.891 Personal history of nicotine dependence; Z87.11 Personal history of peptic ulcer disease; Z87.19 Personal history of other diseases of the digestive system; Z68.25 Body mass index [BMI] 25.0-25.9, adult; K57.30 Diverticulosis of large intestine without perforation or abscess without bleeding
CPT/HCPCS: 96361 ×2; 96375; 96376; 96374; 99285; 36415; 86900; 86901; 88305; 80053 ×3; 82550; 82553; 84484; 85025 ×4; 85027 ×2; 85610; 85730; 86850; 82272; 81001; 87086; 87077; 87186; 45380; G0378 ×4; J2405; J2001; J0696; J2704; C9113 ×2

== ENCOUNTER → 2017-04-05 | Outpatient (CLI) | payer MEDICARE, BC ==
--- NOTE | 2017-04-08 12:39 | MM ---
Reason for exam: screening (asymptomatic). Last mammogram was performed 1 year and 1 month ago. History: Patient is postmenopausal. Benign US biopsy breast VAD LT of the left breast, January 26, 2014. Took estrogen for 6 years beginning at age 48. Took progesterone for 6 years beginning at age 48. Physical Findings: A clinical breast exam by your physician is recommended on an annual basis and results should be correlated with mammographic findings. MG 3D Screening Mammo W/Cad Bilateral CC and MLO view(s) were taken. Prior study comparison: March 01, 2016, bilateral MG 3d screening mammo w/cad. January 24, 2015, bilateral MG screening mammo w CAD. The breast tissue is heterogeneously dense. This may lower the sensitivity of mammography. There are typically benign calcifications in both breasts. Previous mammotome biopsy in the left breast. No significant changes when compared with prior studies. ASSESSMENT: Benign, BI-RAD 2 RECOMMENDATION: Routine screening mammogram of both breasts in 1 year.
== END | disposition home or self-care (01) ==
LOC: RADMAMWWP 12:42
PROVIDERS: ATTEND Internal Medicine
DX: Z12.31 Encounter for screening mammogram for malignant neoplasm of breast (principal)
CPT/HCPCS: 77063; 77067

== ENCOUNTER → 2017-08-28 | Outpatient (CLI) | payer MEDICARE, BC ==
--- NOTE | 2017-08-29 08:48 | CT ---
EXAMINATION TYPE: CT chest w con DATE OF EXAM: 08/28/2017 COMPARISON: NONE HISTORY: No complaints at time of scan, symptoms and signs involving respiratory system CT DLP: 606 mGycm, Automated exposure control for dose reduction was used. CONTRAST: Performed injected with 100 mL of Isovue 300. TECHNIQUE: Axial images were obtained at 5 mm thick sections. Reconstructed images are reviewed on [employer] computer in the coronal plane. FINDINGS: Portion of the thyroid visualized is normal. Some minimal pneumonitis changes are in the dependent lung bases. Correlate persistent atelectasis. No enlarged mediastinal or hilar adenopathy is evident. The ascending aorta diameter at the level o f the main pulmonary artery is 3.5 cm. The main pulmonary artery diameter at the bifurcation is 2.1 cm. Coronary artery calcification is present. Limited CT sections are obtained through the upper abdomen. There is a small hiatal hernia present. C alcified granulomas within the spleen. Left lobe liver wraps around to the edge of the spleen. IMPRESSIONS: 1. Small hiatal hernia. 2. Scattered small areas of pneumonitis may be some minimal subsegmental atelectasis. Follow-up studi es can be performed as clinically indicated.
== END | disposition home or self-care (01) ==
LOC: RADCTMAIN 17:29
PROVIDERS: ATTEND Internal Medicine Rheumatology
DX: R09.89 Other specified symptoms and signs involving the circulatory and respiratory systems (principal)
CPT/HCPCS: 82565; 84520; 71260; 36415; Q9967

== ENCOUNTER 2018-03-12 08:57 | Day surgery (SDC) | payer MEDICARE, BC ==
[2018-03-10 15:52] VITALS: BMI 27.4
[~2018-03-12 08:57] MED LIST: LACTATED RINGERS 1,000 ML IV SCH; LIDOCAINE 1% 20 ML VIAL (10MG/ML) FOR IV START INTRADERMA PRN; MOXIFLOXACIN HCL 0.5% DROPS 3 ML BTL OP ONE; ONDANSETRON 4 MG/2 ML VIAL IVP ONE; TETRACAINE 0.5% OPHTH (PF) DROPS 4 ML BTL OP ONE; TIMOLOL 0.5% OPHTH DROPS 5 ML BTL OP ONE
[2018-03-12] MEDS: PHENYLEPHRINE 2.5% OPHTH DRP 2ML OP NR ×3 (09:55→10:07)
[2018-03-12] MEDS: CYCLOPENTOLATE 1% OPHTH SOLN 2 ML BTL OP ONE ×3 (09:58→10:11)
[2018-03-12 10:01] VITALS: TEMP 97.9
[2018-03-12] MEDS ORDERED: fentaNYL (PF) 50 MCG/ML 2 ML AMP ONE (11:06)
[2018-03-12] MEDS ORDERED: MIDAZOLAM 2 MG/2 ML VIAL ONE (11:06)
[2018-03-12] MEDS ORDERED: BALANCED SALT IRRIG SOLN COMB2 15 ML IRRIG.SOLN INTRAOCULA ONE (11:11)
[2018-03-12] MEDS ORDERED: HYALURONATE SODIUM INTRAOCULAR 1 EACH SYRINGE (12MG/ML) INTRAOCULA ONE (11:11)
[2018-03-12] MEDS ORDERED: LIDOCAINE 1% (PF) 10MG/ML VIAL SQ ONE (11:11)
[2018-03-12] MEDS ORDERED: EPINEPHrine (PF) 0.3 ML in BALANCED SALT IRRIG SOLN COMB2 500 ML IRRIGATION ONE (11:14)
--- NOTE | 2018-03-12 11:36 | P.OP ---
Date of Procedure: 03/12/18 Preoperative Diagnosis: NS & PSC Postoperative Diagnosis: NS & PSC Procedure(s) Performed: PIOL, OS Implants: PCB00 20.50 Anesthesia: MAC Surgeon: Zander Mcguire Estimated Blood Loss (ml): 0 Pathology: none sent Condition: stable Disposition: same day Indications for Procedure: blurry vision Operative Findings: No complications
[2018-03-12] MEDS ORDERED: DUOVISC KIT (GREEN BOX) INTRAOCULA ONE (11:47)
[2018-03-12 11:56] VITALS: RESP 18
[2018-03-12 12:27] VITALS: BP 144/60; PULSE 59
--- NOTE | 2018-03-12 23:17 | OP ---
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 Posterior subcapsular cataract. POSTOPERATIVE DIAGNOSES:: Nuclear sclerosis. Posterior subcapsular cataract. OPERATION:: Clear cornea phacoemulsification of cataract left eye. ESTIMATED BLOOD LOSS:: Zero. SPECIMEN TAKEN:: None. NARRATIVE:: After obtaining the appropriate consent, the patient was brought to the Operating Room where the patient was placed under cardiac monitoring and prepped and draped in the usual sterile manner. At the 5 o'clock position a 15 degree super sharp blade was used to create a paracentesis followed by instillation of 1% Xylocaine MPF 50:50 mix with BSS into the anterior chamber. This was followed by DuoVisc to stabilize the anterior chamber. At the 3 o'clock position a self-sealing corneal flap incision was created using 2.8 mm kaci keratome. A cystatome was used to initiate a continuous tear capsulorrhexis which was completed with the Utrata forceps. A Binkhorst cannula was used to hydrodissect the lens nucleus followed by hydrodelineation. Phacoemulsification of the lens was performed utilizing phaco-chop in 15.75 seconds at 15% power. The remaining cortical material was removed using the irrigation aspiration mode followed by additional 1% Xylocaine MPF into the anterior chamber followed by viscoelastic to stabilize the capsular bag. An PHILLIP PCB 00 20.5 diopter posterior chamber lens was placed into the capsular bag without difficulty. The remaining viscoelastic material was removed from the anterior chamber with the irrigation/aspiration. Balanced salt solution was used to normalize the intraocular pressure. The incision was checked for watertight integrity. The patient then received two drops of 0.5% timolol followed by two drops Vigamox, was lightly patched and shielded in the usual manner. There were no complications from the procedure. The patient tolerated the procedure well and was returned to recovery in good condition. MMODL / IJN: [id number] /
== END 2018-03-12 12:28 | disposition home or self-care (01) ==
LOC: OR 08:57
PROVIDERS: ATTEND Ophthalmology
DX: H25.13 Age-related nuclear cataract, bilateral (principal); H25.042 Posterior subcapsular polar age-related cataract, left eye; H25.013 Cortical age-related cataract, bilateral; H00.026 Hordeolum internum left eye, unspecified eyelid; H00.023 Hordeolum internum right eye, unspecified eyelid; H52.13 Myopia, bilateral; H52.223 Regular astigmatism, bilateral; H52.4 Presbyopia; I10 Essential (primary) hypertension; F41.9 Anxiety disorder, unspecified; M19.90 Unspecified osteoarthritis, unspecified site; E07.9 Disorder of thyroid, unspecified; K21.9 Gastro-esophageal reflux disease without esophagitis; Z79.890 Hormone replacement therapy; Z79.899 Other long term (current) drug therapy; Z88.5 Allergy status to narcotic agent; Z88.2 Allergy status to sulfonamides; Z98.1 Arthrodesis status; Z96.652 Presence of left artificial knee joint; Z87.891 Personal history of nicotine dependence
CPT/HCPCS: 66984; C1780; J2250; J2405; J0171; J3010; J2001

== ENCOUNTER 2018-03-26 09:27 | Day surgery (SDC) | payer MEDICARE, BC ==
[2018-03-20 13:45] VITALS: BMI 27.4
[~2018-03-26 09:27] MED LIST changes: +CYCLOPENTOLATE 1% OPHTH SOLN 2 ML BTL OP ONE; -LIDOCAINE 1% 20 ML VIAL (10MG/ML) FOR IV START INTRADERMA PRN; -ONDANSETRON 4 MG/2 ML VIAL IVP ONE; +PHENYLEPHRINE 2.5% OPHTH DRP 2ML OP NR
[2018-03-26 10:04] VITALS: RESP 16; TEMP 98.8
[2018-03-26] MEDS ORDERED: fentaNYL (PF) 50 MCG/ML 2 ML AMP ONE (11:00)
[2018-03-26] MEDS ORDERED: EPINEPHrine (PF) 0.3 ML in BALANCED SALT IRRIG SOLN COMB2 500 ML IRRIGATION ONE (11:05)
[2018-03-26] MEDS ORDERED: HYALURONATE SODIUM INTRAOCULAR 1 EACH SYRINGE (12MG/ML) INTRAOCULA ONE (11:06)
[2018-03-26] MEDS ORDERED: LIDOCAINE 1% (PF) 10MG/ML VIAL SQ ONE (11:07)
[2018-03-26] MEDS ORDERED: BALANCED SALT IRRIG SOLN COMB2 15 ML IRRIG.SOLN IRRIGATION ONE (11:07)
--- NOTE | 2018-03-26 11:26 | P.OP ---
Date of Procedure: 03/26/18 Preoperative Diagnosis: NS & PSC Postoperative Diagnosis: same Procedure(s) Performed: PIOL OD Implants: PCB00 20.00 Anesthesia: MAC Surgeon: Zander Mcguire Estimated Blood Loss (ml): 0 Pathology: none sent Condition: stable Disposition: same day Indications for Procedure: blurry vision Operative Findings: no complications
[2018-03-26 12:16] VITALS: BP 152/70; PULSE 58
--- NOTE | 2018-03-26 15:19 | OP ---
OPERATIVE REPORT DATE OF SURGERY: 03/26/2018. PROCEDURE: Phacoemulsification of cataract and intraocular lens implant of the right eye. PREOPERATIVE DIAGNOSIS: Nuclear sclerosis and posterior subcapsular cataract. POSTOPERATIVE DIAGNOSIS:: Nuclear sclerosis and posterior subcapsular cataract. ESTIMATED BLOOD LOSS:: Zero. SPECIMEN TAKEN:: None. NARRATIVE:: After obtaining the appropriate consent, the patient was brought to the Operating Room where the patient was placed under cardiac monitoring and prepped and draped in the usual sterile manner. At the 11 o'clock position a 15 degree super sharp blade was used to create a paracentesis followed by instillation of 1% Xylocaine MPF 50:50 mix with BSS into the anterior chamber. This was followed by Amvisc to stabilize the anterior chamber. At the 9 o'clock position a self-sealing corneal flap incision was created using 2.8 mm kaci keratome. A cystatome was used to initiate a continuous tear capsulorrhexis which was completed with the Utrata forceps. A Binkhorst cannula was used to hydrodissect the lens nucleus followed by hydrodelineation. Phacoemulsification of the lens was performed utilizing phacochop in 14.19 seconds at 10% power. The remaining cortical material was removed using the irrigation aspiration mode followed by additional 1% Xylocaine MPF into the anterior chamber followed by viscoelastic to stabilize the capsular bag. An PHILLIP PCP00 20.0 diopters posterior chamber lens was placed into the capsular bag without difficulty. The remaining viscoelastic material was removed from the anterior chamber with the irrigation/aspiration. Balanced salt solution was used to normalize the intraocular pressure. The incision was checked for watertight integrity. The patient then received two drops of 0.5% timolol followed by two drops Vigamox, was lightly patched and shielded in the usual manner. There were no complications from the procedure. The patient tolerated the procedure well and was returned to recovery in good condition. MMODL / IJN: [id number] /
== END 2018-03-26 12:13 | disposition home or self-care (01) ==
LOC: OR 09:27
PROVIDERS: ATTEND Ophthalmology
DX: H25.11 Age-related nuclear cataract, right eye (principal); H25.011 Cortical age-related cataract, right eye; H00.023 Hordeolum internum right eye, unspecified eyelid; H00.026 Hordeolum internum left eye, unspecified eyelid; H52.13 Myopia, bilateral; H52.223 Regular astigmatism, bilateral; H52.4 Presbyopia; Z96.1 Presence of intraocular lens; E07.9 Disorder of thyroid, unspecified; I10 Essential (primary) hypertension; H04.129 Dry eye syndrome of unspecified lacrimal gland; M19.90 Unspecified osteoarthritis, unspecified site; Z79.890 Hormone replacement therapy; Z79.899 Other long term (current) drug therapy; Z88.5 Allergy status to narcotic agent; Z88.2 Allergy status to sulfonamides
CPT/HCPCS: 66984; C1780; J0171; J3010; J2001

== ENCOUNTER → 2018-04-07 | Outpatient (CLI) | payer MEDICARE, BC ==
--- NOTE | 2018-04-13 10:03 | MM ---
Reason for exam: screening (asymptomatic). Last mammogram was performed 1 year ago. History: Patient is postmenopausal. Benign US biopsy breast VAD LT of the left breast, January 26, 2014. Took estrogen for 6 years beginning at age 48. Took progesterone for 6 years beginning at age 48. MG 3D Screening Mammo W/Cad Bilateral CC and MLO view(s) were taken. Prior study comparison: April 05, 2017, bilateral MG 3d screening mammo w/cad. March 01, 2016, bilateral MG 3d screening mammo w/cad. The breast tissue is heterogeneously dense. This may lower the sensitivity of mammography. There is motion artifact on the left MLO. Previous mammotome left breast. No significant changes when compared with prior studies. ASSESSMENT: Benign, BI-RAD 2 RECOMMENDATION: Routine screening mammogram of both breasts in 1 year.
== END | disposition home or self-care (01) ==
LOC: RADMAMWWP 11:01
PROVIDERS: ATTEND Internal Medicine
DX: Z12.31 Encounter for screening mammogram for malignant neoplasm of breast (principal)
CPT/HCPCS: 77063; 77067

== ENCOUNTER → 2018-11-04 | Outpatient (CLI) | payer MEDICARE, BC ==
--- NOTE | 2018-11-04 15:01 | BD ---
EXAMINATION TYPE: Axial Bone Density DATE OF EXAM: 11/04/2018 COMPARISON: 2013 CLINICAL HISTORY: post menopausal Height: 5' Weight: 150 FRAX RISK QUESTIONS: History of Fracture in Adulthood: y Secondary Osteoporosis: RISK FACTORS HISTORY OF: Family History of Osteoporosis: y Active: n Postmenopausal woman: y MEDICATIONS: Thyroid Medications: Which medication: Levothyroxine How Lon years Additional Medications: blood pressure, cholesterol, vitamin D Additional History: EXAM MEASUREMENTS: Bone mineral densitometry was performed using the [employer] System. Bone mineral density as measured about the Lumbar spine is: ----- L1-L4(G/cm2): 0.871 T Score Values are as follows: ----- L2: -2.2 ----- L3: -2.8 ----- L4: -2.5 ----- L1-L4: -2.6 Bone mineral density about the R hip (g/cm2): 0.710 Bone mineral density about the L hip (g/cm2): 0.637 T Score values are as follows: -----R Neck: -2.4 -----L Neck: -2.9 -----R Total: -2.1 -----L Total: -2.6 IMPRESSION: Osteoporosis (T Score less than -2.5). There is increased fracture risk and therapy is usually indicated based on age. Re-Screen 1-2 years. NOTE: T-SCORE=SD OF THE YOUNG ADULT MEAN.
== END | disposition home or self-care (01) ==
LOC: RADBDWWP 12:59
PROVIDERS: ATTEND Internal Medicine
DX: M81.0 Age-related osteoporosis without current pathological fracture (principal)
CPT/HCPCS: 77080

== ENCOUNTER → 2019-01-19 | Outpatient (CLI) | payer MEDICARE, BC ==
[~2019-01-19] MED LIST changes: -CYCLOPENTOLATE 1% OPHTH SOLN 2 ML BTL OP ONE; +DENOSUMAB 60 MG/ML 1 ML SYRINGE SQ ONE; -LACTATED RINGERS 1,000 ML IV SCH; -MOXIFLOXACIN HCL 0.5% DROPS 3 ML BTL OP ONE; -PHENYLEPHRINE 2.5% OPHTH DRP 2ML OP NR; -TETRACAINE 0.5% OPHTH (PF) DROPS 4 ML BTL OP ONE; -TIMOLOL 0.5% OPHTH DROPS 5 ML BTL OP ONE
[2019-01-19 14:21] VITALS: BP 148/81; PULSE 54; RESP 18; TEMP 98.2
== END | disposition home or self-care (01) ==
LOC: PROCWHC3 13:37
PROVIDERS: ATTEND Internal Medicine
DX: M81.0 Age-related osteoporosis without current pathological fracture (principal)
CPT/HCPCS: 96372; J0897

== ENCOUNTER 2019-03-18 08:46 | Day surgery (SDC) | payer MEDICARE, BC ==
[2019-03-16 16:22] VITALS: BMI 26.9
[~2019-03-18 08:46] MED LIST changes: -DENOSUMAB 60 MG/ML 1 ML SYRINGE SQ ONE; +LACTATED RINGERS 1,000 ML IV SCH
[2019-03-18 09:15] VITALS: TEMP 97.9
[2019-03-18] MEDS ORDERED: LIDOCAINE 1% 20 ML VIAL (10MG/ML) FOR IV START INTRADERMA ONE (09:27)
[2019-03-18] MEDS ORDERED: METOPROLOL TARTRATE 5 MG/5 ML VIAL IVP ONE (09:33)
[2019-03-18] MEDS ORDERED: ATENOLOL 25 MG TAB PO STA (09:34)
[2019-03-18] MEDS ORDERED: PROPOFOL 10 MG/ML 20 ML VIAL IV ONE (09:34)
[2019-03-18] MEDS ORDERED: LABETALOL 5 MG/ML VIAL MDV ONE (09:34)
[2019-03-18] MEDS ORDERED: KETAMINE 10 MG/ML 20 ML VIAL ONE (09:34)
[2019-03-18] MEDS ORDERED: LIDOCAINE 1% INJ 10MG/ML (20 ML MDV) ONE (09:34)
--- NOTE | 2019-03-18 09:48 | P.PCN ---
Date of Procedure: 03/18/19 Procedure(s) Performed: BRIEF HISTORY: Patient is a 78-year-old, pleasant, female, scheduled for an upper endoscopy as a part of evaluation of progressive dysphagia to solids for the last 6 months duration. She had an upper endoscopy with dilation done about 3 years ago.. PROCEDURE PERFORMED: Esophagogastroduodenoscopy with dilation and biopsy. PREOPERATIVE DIAGNOSIS: Progressive dysphagia to solids of 6 months duration. IV sedation per anesthesia. PROCEDURE: After informed consent was obtained, the patient was brought into the endoscopy unit. IV sedation was administered by Anesthesia under continuous monitoring. Initially the Olympus GIF-140 video endoscope was inserted into the mouth. Esophagus intubated without any difficulty. It was gradually advanced into the stomach and duodenum and carefully examined. The bulb and the second part of the duodenum appeared normal. The scope at this time was withdrawn to the stomach, adequately insufflated with air, and upon careful examination, mucosa of the antrum, body, cardia and the fundus appeared normal. The scope was then withdrawn into the esophagus. Small to moderate size hiatal hernia noted The GE junction was located at 39 cm from the incisors. It was a distal esophageal Schatzki's ring identified and this was dilated using 12-15 mm TTS balloon in a sequential fashion for 90 seconds. There was mild erythema of the GE junction was found biopsies were done from this area. The rest of the esophagus appeared normal. There were no erosions or ulcerations seen and the patient tolerated the procedure well. IMPRESSION: 1. Distal esophageal Schatzki's ring status post balloon dilation using 12-15 mm TTS balloon as described above. 2. Small to moderate size hiatal hernia. RECOMMENDATIONS: The findings of this examination were discussed with the patient as well as her family. She was advised to follow with the biopsy results. She will continue with omeprazole 20 mg daily and follow antireflux measures. She was advised to follow up in office as needed.
[2019-03-18 10:09] VITALS: PULSE 65; RESP 16
[2019-03-18 10:14] VITALS: BP 165/84
== END 2019-03-18 10:36 | disposition home or self-care (01) ==
LOC: ORWHC2ENDO 08:46
PROVIDERS: ATTEND Internal Medicine Gastroenterology
DX: K22.2 Esophageal obstruction (principal); K44.9 Diaphragmatic hernia without obstruction or gangrene; I10 Essential (primary) hypertension; E78.5 Hyperlipidemia, unspecified; E07.9 Disorder of thyroid, unspecified; Z79.890 Hormone replacement therapy; Z79.899 Other long term (current) drug therapy
CPT/HCPCS: 88305; 43239; 43249; J2001; J2704; C1726

== ENCOUNTER → 2019-04-16 | Outpatient (CLI) | payer MEDICARE, BC ==
--- NOTE | 2019-04-20 08:55 | MM ---
Reason for exam: screening (asymptomatic). Last mammogram was performed 1 year ago. History: Patient is postmenopausal. Benign US biopsy breast VAD LT of the left breast, January 26, 2014. Took estrogen for 6 years beginning at age 48. Took progesterone for 6 years beginning at age 48. Physical Findings: A clinical breast exam by your physician is recommended on an annual basis and results should be correlated with mammographic findings. MG 3D Screening Mammo W/Cad Bilateral CC and MLO view(s) were taken. Prior study comparison: April 07, 2018, bilateral MG 3d screening mammo w/cad. April 05, 2017, bilateral MG 3d screening mammo w/cad. The breast tissue is heterogeneously dense. This may lower the sensitivity of mammography. No significant changes when compared with prior studies. ASSESSMENT: Benign, BI-RAD 2 RECOMMENDATION: Routine screening mammogram of both breasts in 1 year.
== END | disposition home or self-care (01) ==
LOC: RADMAMWWP 15:10
PROVIDERS: ATTEND Internal Medicine
DX: Z12.31 Encounter for screening mammogram for malignant neoplasm of breast (principal)
CPT/HCPCS: 77063; 77067

== ENCOUNTER → 2019-09-17 | Outpatient (CLI) | payer MEDICARE, BC | END | disposition home or self-care (01) | LOC: LABPAT 09:27 | PROVIDERS: ATTEND Orthopaedic Surgery Sports Medicine | DX: Z01.812 Encounter for preprocedural laboratory examination (principal) | CPT/HCPCS: 87070 ==

== ENCOUNTER → 2019-09-25 | Outpatient (CLI) | payer MEDICARE, BC ==
[2019-09-25 10:34] LABS: HCT 47.1 % (34.0-46.0); MCH 30.3 pg (25.0-35.0); MCHC 31.9 g/dL (31.0-37.0); MCV 94.9 fL (80.0-100.0); Mean Platelet Volume 6.9; Platelet Count 266 k/uL (150-450); RBC 4.96 m/uL (3.80-5.40); WBC 5.3 k/uL (3.8-10.6)
[2019-09-25 10:41] LABS: Partial Thromboplastin Time 22.9 sec (22.0-30.0); Prothrombin Time 10.2 sec (9.0-12.0)
[2019-09-25 10:42] LABS: Albumin 4.4 g/dL (3.5-5.0); Potassium 4.3 mmol/L (3.5-5.1); Total Bilirubin 0.5 mg/dL (0.2-1.3); Total Protein 7.3 g/dL (6.3-8.2)
[2019-09-25 11:03] LABS: Appearance,Urine Clear (Clear); Bacteria,Urine Rare /hpf; Bilirubin,Urine Negative (Negative); Blood,Urine Negative (Negative); Color,Urine Yellow; Glucose,Urine (UA) Negative (Negative); Ketones,Urine Negative (Negative); Leukocyte Esterase,Urine Trace (Negative); Mucus,Urine Rare /hpf; Nitrite,Urine Negative (Negative); PH, Urine 5.5 (5.0-8.0); Protein,Urine Negative (Negative); Specific Gravity,Urine 1.019 (1.001-1.035); Squamous Epithelial Cell,Urine 3 /hpf (0-4); Urobilinogen,Urine <2.0 mg/dL (<2.0); WBC,Urine 4 /hpf (0-5)
== END | disposition home or self-care (01) ==
LOC: LABPAT 09:39
PROVIDERS: ATTEND Orthopaedic Surgery Sports Medicine
DX: Z01.818 Encounter for other preprocedural examination (principal); Z79.01 Long term (current) use of anticoagulants
CPT/HCPCS: 36415; 80053; 81001; 85027; 85610; 85730

== ENCOUNTER 2019-10-08 05:33 | Inpatient (IN) | payer MEDICARE, BC ==
[2019-10-01 10:01] VITALS: BMI 28.3
[~2019-10-08 05:33] MED LIST changes: +ACETAMINOPHEN TAB 500 MG TAB PO ONE; +GABAPENTIN 300 MG CAP PO ONE; -LACTATED RINGERS 1,000 ML IV SCH; +MELOXICAM 7.5 MG TAB PO ONE; +ONDANSETRON 4 MG/2 ML VIAL IVP ONE; +TRANEXAMIC ACID 1,000 MG in SODIUM CHLORIDE 0.9% 100 ML IVPB ONE
[2019-10-08] MEDS ORDERED: MIDAZOLAM 2 MG/2 ML VIAL IV PRN (05:46)
[2019-10-08] MEDS ORDERED: ONDANSETRON 4 MG/2 ML VIAL IVP ONE (05:46)
[2019-10-08] MEDS ORDERED: ACETAMINOPHEN TAB 500 MG TAB ONE (06:07)
[2019-10-08] MEDS ORDERED: ONDANSETRON 4 MG/2 ML VIAL ONE (06:09)
[2019-10-08] MEDS ORDERED: LIDOCAINE 1% (10MG/ML) FOR IV START INTRADERMA ONE (06:20)
[2019-10-08] MEDS: LACTATED RINGERS 1,000 ML IV SCH ×2 (06:20→17:07)
[2019-10-08] MEDS ORDERED: DEXAMETHASONE SOD PHOSPHATE 10 MG/ML 1 ML VIAL IV ONE (06:20)
[2019-10-08] MEDS ORDERED: MIDAZOLAM 2 MG/2 ML VIAL ONE (07:25)
[2019-10-08] MEDS ORDERED: SODIUM CHLORIDE 0.9% 100 ML BAG ONE (07:25)
[2019-10-08] MEDS ORDERED: PROPOFOL 10 MG/ML 20 ML VIAL IV ONE (07:25)
[2019-10-08] MEDS ORDERED: TRANEXAMIC ACID 1,000 MG/10 ML VIAL ONE (07:25)
[2019-10-08] MEDS ORDERED: ceFAZolin 3,000 MG in SODIUM CHLORIDE 0.9% IRRIGATIO 3,000 ML IRRIGATION ONE (07:57)
[2019-10-08] MEDS: ROPIVACAINE 246.25 MG, EPINEPHrine 0.5 MG, KETOROLAC 30 MG, cloNIDine HCL/PF 80 MCG, WA... MISCELLANE ONE ×10 (08:21→08:40)
[2019-10-08] MEDS ORDERED: LACTATED RINGERS 1,000 ML IV ONE (08:25)
[2019-10-08] MEDS ORDERED: HYDROcodone/APAP 5-325MG 1 EACH TAB PO PRN (09:30)
[2019-10-08] MEDS ORDERED: diazePAM 5 MG TAB PO PRN (09:30)
[2019-10-08] MEDS ORDERED: MAGNESIUM HYDROXIDE 2,400 MG/10 ML CUP PO PRN (09:30)
[2019-10-08] MEDS ORDERED: bisacodyL 10 MG SUPP RECTAL PRN (09:30)
[2019-10-08] MEDS ORDERED: ONDANSETRON 4 MG/2 ML VIAL IVP PRN (09:30)
[2019-10-08] MEDS ORDERED: TEMAZEPAM 15 MG CAP PO PRN (09:30)
[2019-10-08] MEDS ORDERED: NALOXONE 0.4 MG/ML 1 ML VIAL IV PRN (09:30)
[2019-10-08] MEDS ORDERED: HYDROmorphone 0.5 MG/0.5 ML SYRINGE IVP PRN ×2 (09:30)
[2019-10-08] MEDS ORDERED: NA PHOS,M-B/NA PHOS,DI-BA 133 ML ENEMA RECTAL PRN (09:30)
[2019-10-08] MEDS ORDERED: ROPIVACAINE 0.2%-NS ON-Q PUMP 1,090 MG, EMPTY PAIN BALL 1 EACH MISCELLANE PRN (09:32)
--- NOTE | 2019-10-08 10:07 | XR ---
EXAMINATION TYPE: XR knee limited RT DATE OF EXAM: 10/08/2019 COMPARISON: NONE HISTORY: 78-year-old female evaluation for postop abnormality and alignment TECHNIQUE: 2 views FINDINGS: Right total knee arthroplasty. Both distal femoral and proximal tibial components of prosthesis are w ell seated without periprosthetic fracture. Vascular calcifications. Alignment grossly anatomic. Ante rior soft tissue swelling with an intra-articular joint fluid compatible with recent operation. Scatt ered soft tissue air also compatible with recent operation. IMPRESSION: Uncomplicated postoperative appearance right total knee arthroplasty.
[2019-10-08] MEDS: HYDROmorphone 0.5 MG/0.5 ML SYRINGE IVP PRN ×5 (10:22→21:05)
--- NOTE | 2019-10-08 11:09 | OP ---
OPERATIVE REPORT DATE OF PROCEDURE: 10/08/2019 SURGEON: Mauro Rey MD SOLAR PROJECT MANAGER: Julito VITALE. PREOPERATIVE DIAGNOSIS: Right knee osteoarthrosis. POSTOPERATIVE DIAGNOSIS: Right knee osteoarthrosis. OPERATION: Right total knee arthroplasty. ANESTHESIA: Spinal with sedation. ESTIMATED BLOOD LOSS: 100 mL. TOURNIQUET: Tourniquet time was 52 minutes at 250 mmHg. COMPLICATIONS: None apparent. DRAINS: None. DISPOSITION: Postanesthesia care unit. INDICATIONS: Sandra is a very pleasant 78-year-old female with a longstanding history of right knee pain. History and physical examination are consist with advanced right knee osteoarthrosis. She has been through significant nonoperative management up to this point. Further treatment options were discussed and she has decided to go for the right total knee arthroplasty. The risks of procedure were discussed with her in detail. These risks include, but are not limited to risk of infection, nerve damage, bleeding, pain, and a small risk of deep vein thrombosis which could lead to fatal pulmonary embolism. There is also risk of loosening of the implant which could require revision operation. The patient understands these risks. All of her questions were answered to her satisfaction. An appropriate informed consent was obtained. DESCRIPTION OF THE PROCEDURE: The patient identified in preop holding area. Surgical sites marked by both the patient and myself. She was given 2 g of Ancef IV for prophylactic purposes. She was then transferred to the operative suite. She was placed supine on the operative table. Spinal anesthetic was then administered and dosed per the anesthesia without apparent complication. Examination under anesthesia was then performed. The patient was 2-3 degrees shy of full extension. She had 100 degrees of flexion. The medial collateral ligament, lateral collateral ligament and posterior cruciate ligaments were stable. A tourniquet was then placed high on the right upper thigh well-padded in preparation for surgery. The patient's right lower extremity was than prepped and draped in usual sterile fashion. Standard surgical pause undertaken to ensure that we were operating the correct site and that appropriate preoperative antibiotics were given. All staff in room in agreement and we proceeded. The outlines of the patella were marked surgical pen. A planned 10-12 cm vertical incision centered over the patella was marked surgical pen. Leg was then exsanguinated with an Esmarch dressing. The knee was then flexed and the tourniquet was inflated to 250 mmHg. The total tourniquet time for the procedure was 52 minutes. Incision was then made with a 10 blade scalpel. Dissection carried down sharply overlying fascia. Great care was taken to minimize the skin flaps. The knee was then exposed using a standard medial parapatellar approach. A small cuff of quadriceps tendon was then left for suturing. She was in a bit of varus preoperatively. A standard medial release was then made. Superficial medial collateral ligament dissected off the bone around the posterior aspect of the proximal tibia. Medial meniscus was then excised as well. The lateral meniscus was also released anteriorly. The leg was then externally rotated. The patella was everted. The knee was flexed, the retractors was then placed to protect the collateral ligaments. I then proceeded to remove the infrapatellar fat pad. This was excised sharply tangentially with fibers of the patellar tendon. I then proceeded to remove the peripheral osteophytes. This was done with a rongeur. I then proceeded with distal femoral resection. She did have near full extension. A planned 9 mm resection was then done. The femoral canal was then entered to the midline of the femur approximately 10 mm anterior to the origin of the posterior cruciate ligament. The evangelist was then advanced down the center of the femur and placed intramedullary. Based on the preoperative radiographs, the angle between the anatomic and mechanical axis of the femur was approximately 4-5 degrees. The angle of this distal femoral cutting guide was then set at 5 degrees for the right knee. The distal femoral cutting guide was then advanced over the intramedullary evangelist. This was seated firmly against the femur. I then as mentioned planned to take 9 mm off the distal femur. The cutting block was then secured onto the femur with pins. The jig was removed. The distal femoral cut was made through the slot of the block. The pins were then removed. The distal femoral cutting block was removed. The accuracy of this femoral cuts was checked with two flat bars. I then proceeded with femoral sizing. Posterior referencing sizing guide was held firmly against the resected distal surface of the femur. The posterior condyles were resting on the posterior plane of the guide. The sizing stylus was then placed onto the anterior femur. The size was measured to the size 3. I then assessed for femoral rotation. Plan was for 3 degrees of external rotation. Three degrees external rotation was placed onto the jig. These holes were then marked. I then confirmed the rotation by 3 separate methods. This was done using epicondylar axis as well as [place] line and posterior referencing. It was deemed that the external rotation was proper. I then went forward, placed the femoral cutting block. This was placed over the previously placed pin holes. The Chris wing was then placed on the anterior slots to ensure that we would not notch the anterior femur with the anterior femoral cut. I then proceeded with the anterior femoral cut. This was flushed with the anterior cortex of the femur. Posterior cuts were then made followed by the anterior chamfer cut, then the posterior chamfer cut. The cutting block was then removed. Throughout the resection, the collateral ligaments were protected with retractors. I then placed a trial size 3 femur. It fit very nice medial-lateral and fit flush with the distal end of the femur. The drill holes were then made. I then proceeded with the tibial cut. I planned for cruciate retaining knee. The guide was placed and set for varus valgus and for slope. The height was set for approximate 2 mm resection from the medial tibial plateau which was the lower side. I was happy with the alignment and the amount of resection. The cutting block was then pinned to the proximal tibia. The alignment evangelist was removed. The proximal tibia was resected with a reciprocating saw. Again this was done with retractors protecting the collateral ligaments as well as the posterior cruciate ligament. I then proceeded to evaluate the flexion and extension gaps. A 10 mm block was then placed. The flexion-extension gaps were equal. I then proceeded with resection of posterior osteophytes. Very minimal posterior osteophytes. This is done using a curved osteotome. This resected the posterior osteophytes and posterior capsule stripping was done off the posterior aspect of the femur at this time. The osteophytes were then removed. I then proceeded with resection of the patella. The thickness of patella was measured using the caliper. The thickness was 22 mm. The thickness of the anticipated patellar dome was taken into account. The resection was then performed and confirmed to be equal in 4 quadrants using a caliper. Approximately 14 mm of bone remained after resection. A 29 x 8 standard patellar trial was then placed. The holes were drilled and the trial was then placed. I then proceeded with sizing the tibial plate. A size 2 tibial plate fit very nicely. I then placed the trial femur in the tibial tray and patellar button. A 9 mm trial tibial insert was also placed. The components fit very nicely. She had full extension and flexion. The extension and flexion gaps were equal and stable to both varus and valgus stress. The patella tracked appropriately. The tibial tray rotation was then marked with a Bovie. This was externally rotated properly. I then proceeded with tibial preparation. I first drilled the femoral holes, removed femoral component. The tibial tray was then set for proper external rotation as well as mediolateral placement onto the tibia. It was then pinned into place. I then proceeded with punching the keel. I then decided to proceed with cementing of all of our components. The knee was thoroughly irrigated with sterile saline solution via pulse lavage. The lateral geniculate artery was identified and cauterized. All blood was removed from the bone of the tibia, femur, and patella with pulse lavage. I then proceeded with cementing. Two packs of antibiotic bone cement prepared on the back table by the surgical assistant certified. I then proceed with cementing the tibia first. The cement was impacted in the keel as well as deeply seated in the bone. A second coat of cement was then placed. The tibia was then impacted into place. Excess cement was removed with [place]'s and Joker's. I then proceeded with cementing the femoral component. The femoral component was also cemented using sterile technique. Excess cement was removed. A 9 mm trial insert was then placed into the knee. It was brought into full extension with a constant axial load placed until the cement had hardened. The patellar component was then cemented. This was held firmly with a compressive device until the cement had dried. When the cement had dried, the knee was taken out of extension. All excess cement was removed from around the prosthesis. I then trialed the knee with a 9 mm insert. The flexion-extension gaps were appropriate. The knee was stable. It came into full extension. I decided to go for the 9 mm cross-linked cruciate-retaining tibial insert. Polyethylene was then placed onto the tibial tray and locked into place. The knee was then reduced. The knee was again further irrigated with sterile saline solution with antibiotic added. The tourniquet was then deflated. The total tourniquet time for the procedure was 52 minutes at 250 mmHg. Final components were a [employer] Oxin[employer] Journey size 3 cruciate-retaining femoral component, a size 2 tibial tray, a 9 mm cruciate-retaining polyethylene insert and a 29 x 8 mm oval patella. I then proceeded with closure. Again, the knee was thoroughly irrigated. The quadriceps tendon and the medial retinaculum were reapproximated with #2 Ethibond suture. The extensor mechanism was then closed with a running #2 Quill suture. Subcutaneous tissues were then closed with 2-0 Vicryl interrupted suture. The skin was closed with a running 3-0 Quill suture. Dermabond was applied to the incision. Sterile compressive dressings were applied. All sponge and needle counts were deemed correct prior to closure. The patient tolerated procedure without apparent complication. She was transferred to the recovery room in stable. MMODL / IJN: [id number] /
[2019-10-08] MEDS: ONDANSETRON 4 MG/2 ML VIAL IVP PRN (17:50)
[2019-10-08] MEDS: HYDROcodone/APAP 10-325MG 1 EACH TAB PO PRN (17:57)
[2019-10-08] MEDS: PANTOPRAZOLE 40 MG TABLET PO SCH (18:28)
[2019-10-08] MEDS: METOPROLOL SUCCINATE (ER) 25 MG TAB.ER.24H PO SCH (18:28)
[2019-10-08] MEDS: EZETIMIBE 10 MG TAB PO SCH (18:29)
--- NOTE | 2019-10-08 19:21 | P.ANPRN ---
Procedure Note - Anesthesia - Nerve Block Performed Right Adductor Canal Infusion Time Out Performed: Yes Date of Procedure: 10/08/19 Procedure Start Time: 06:45 Procedure Stop Time: 06:55 Location of Patient: PreOp Indication: Acute Post-Operative Pain, Dx/Pain Location, Requested by Surgeon Sedation Type: Sedate with meaningful contact maintained Preparation: Sterile Prep Position: Supine Catheter: Indwelling Needle Types: Pajunk Needle Gauge: 21 Ultrasound used to visualize needle placement: Yes Ultrasound used to observe medication spread: Yes Injectate: 0.5% Ropivacaine (see comment for volume) (20ml) Blood Aspirated: No Pain Paresthesia on Injection Noted: No Resistance on Injection: Normal Image Stored and Saved: Yes Events: Uneventful and Well Tolerated
--- NOTE | 2019-10-08 19:36 | P.CONS ---
History of Present Illness - Reason for Consult Consult date: 10/08/19 - History of Present Illness Sandra Nichole, is an 78-year-old female well known to my practice who was admitted by Dr. Mauro Rey and underwent right total knee arthroplasty due to advanced osteoarthritis that failed conservative management. Consultation was requested for management while hospitalized. Patient was seen and examined postoperatively, she was having nausea and vomiting, patient relates to taking [place] as a cause of her nausea and vomiting, she is having [id number] pain in her right knee area, otherwise she denies any complaints, there is no fever or chills no headache or dizziness no chest pain no shortness of breath no cough, no abdominal pain no blood in the stools no burning was urination no frequency or urgency no hematuria. Patient has a known history of hypertension, hypothyroidism, gastroesophageal reflux disease, and history of osteoarthritis and osteoporosis. Past Medical History Past Medical History: GERD/Reflux, GI Bleed, Hyperlipidemia, Hypertension, Osteoarthritis (OA), Thyroid Disorder Additional Past Medical History / Comment(s): STATES HX OF RECTAL BLEED CAUSED BY PAIN RX & SHE RECEIVED MULTIPLE BLOOD TRANSFUSIONS (2006)., HX OF DIVERTICULAR BLEED, NOT ABLE TO FULLY BEND LEFT KNEE., FREQUENT UTI'S. History of Any Multi-Drug Resistant Organisms: None Reported Past Surgical History: Back Surgery, Section, Hysterectomy, Joint Replacement, Orthopedic Surgery, Tonsillectomy Additional Past Surgical History / Comment(s): CERVICAL FUSION FROM C3-7, LEFT KNEE REPLACEMENT WITH 3 DIFFERENT REVISIONS (SOME SURGERIES @ [facility])., EGD. Steroid injections left knee. , claudette cataracts, colonoscopy. Past Anesthesia/Blood Transfusion Reactions: No Reported Reaction, Postoperative Nausea & Vomiting (PONV) Additional Past Anesthesia/Blood Transfusion Reaction / Comm: states ponv due to codeine Past Psychological History: No Psychological Hx Reported Smoking Status: Former smoker Past Alcohol Use History: Occasional Additional Past Alcohol Use History / Comment(s): QUIT SMOKING 2006, STARTED AT AGE 34 (1974) SMOKED 1PPD ON AVERAGE. Past Drug Use History: None Reported - Past Family History Mother Additional Family Medical History / Comment(s): Cerebral hemorrhage at age 51. Father Additional Family Medical History / Comment(s): Emphysema. Medications and Allergies Home Medications Medication Instructions Recorded Confirmed Type Cholecalciferol [Vitamin D3 (25 2,000 units PO DAILY 05/03/15 10/01/19 History Mcg = 1000 Iu)] Omeprazole 20 mg PO QAM 03/10/17 10/01/19 History Naproxen Sodium [Aleve] 440 mg PO DAILY 01/19/19 10/01/19 History Biotin 5 mg PO DAILY 10/01/19 10/01/19 History Ezetimibe [Zetia] 10 mg PO DAILY 10/01/19 10/01/19 History Levothyroxine Sodium 25 mcg PO DAILY 10/01/19 10/01/19 History Metoprolol Succinate (ER) [Toprol 25 mg PO DAILY 10/01/19 10/01/19 History Xl] Trimethoprim 100 mg PO PC-LUNCH 10/01/19 10/01/19 History Allergies Allergy/AdvReac Type Severity Reaction Status Date / Time nickel Allergy Rash/Hives Verified 10/08/19 06:01 Sulfa (Sulfonamide Allergy Rash/Hives Verified 10/08/19 06:01 Antibiotics) codeine AdvReac Nausea & Verified 10/08/19 06:01 Vomiting Physical Exam Vitals: Vital Signs Temp Pulse Pulse Resp BP BP Pulse Ox 10/08/19 18:53 97.4 F L 104 H 18 162/100 94 L 10/08/19 15:52 16 10/08/19 13:30 100 175/97 10/08/19 13:15 96 165/104 10/08/19 13:00 103 H 185/93 10/08/19 12:45 104 H 179/106 10/08/19 12:30 100 177/98 10/08/19 12:15 90 183/102 10/08/19 12:00 84 176/97 10/08/19 11:45 90 183/97 10/08/19 11:35 97 F L 85 16 170/90 93 L 10/08/19 11:30 97.7 F 86 16 186/104 93 L 10/08/19 11:26 170/90 10/08/19 10:48 82 16 159/75 98 10/08/19 10:33 81 16 165/74 96 10/08/19 10:18 78 16 172/62 97 10/08/19 10:03 77 18 170/76 98 10/08/19 09:48 73 16 154/75 99 10/08/19 09:33 66 18 147/70 96 10/08/19 09:18 97.2 F L 84 18 145/85 98 10/08/19 07:00 74 16 166/91 98 10/08/19 05:50 97.1 F L 76 16 160/76 98 Intake and Output 10/08/19 10/08/19 10/08/19 06:59 14:59 22:59 Intake Total 500 1451 Output Total 100 Balance 500 1351 Intake: IV 500 1451 Output: Estimated Blood Loss 100 Other: # Voids 1 1 Weight 69.7 kg 69.7 kg In general patient is alert and oriented 3 in no apparent distress HEENT head normocephalic and atraumatic Neck is supple no JVD no goiter no lymphadenopathy Chest exam reveals a few scattered crackles no wheezing Cardiac exam reveals regular heart sounds S1 and S2 no gallops no murmurs Abdomen is soft nontender no organomegaly with normal bowel sounds Extremity exam reveals no edema no cyanosis or clubbing Neurological examination reveals no gross focal deficits Assessment and Plan Plan: 1. Advanced osteoarthritis, status post right total knee arthroplasty. DVT prophylaxis as per orthopedic protocol 2. For pain management patient has an ALLERGY to codeine, advised to avoid [place] and use morphine if needed for pain management 3. Underlying history of hypertension well-controlled on medications 4. Underlying history of hyperlipidemia 5. Underlying history of hypothyroidism Home medications reviewed and reordered Will follow during this admission for medical management Please see orders
[2019-10-08] MEDS: ASPIRIN 81 MG PO SCH (21:04)
[2019-10-08] MEDS: SENNOSIDES-DOCUSATE SODIUM 1 EACH TAB PO SCH (21:04)
[2019-10-09] MEDS: LACTATED RINGERS 1,000 ML IV SCH ×4 (00:19→17:05)
[2019-10-09] MEDS: ONDANSETRON 4 MG/2 ML VIAL IVP PRN ×3 (00:20→13:12)
[2019-10-09] MEDS: HYDROmorphone 0.5 MG/0.5 ML SYRINGE IVP PRN ×3 (00:21→11:39)
[2019-10-09] MEDS: MORPHINE SULFATE 2 MG/ML SYRINGE IVP PRN ×3 (05:27→20:24)
--- NOTE | 2019-10-09 06:06 | P.PN ---
Progress Note - Text Progress Note Date: 10/09/19 78-year-old female status post right total knee arthroplasty with a abductor canal catheter postop day #1. VAS 1 out of 10 in severity. Patient doing well, ambulating to and from the bathroom. No complications. Incision and catheter insertion site looks clean dry and intact.
[2019-10-09] MEDS: CHOLECALCIFEROL 1,000 UNIT TAB PO SCH (06:56)
[2019-10-09] MEDS: HYDROcodone/APAP 10-325MG 1 EACH TAB PO PRN (06:56)
[2019-10-09] MEDS: LEVOTHYROXINE 25 MCG TAB PO SCH (06:56)
[2019-10-09] MEDS: METOPROLOL SUCCINATE (ER) 25 MG TAB.ER.24H PO SCH (06:56)
[2019-10-09] MEDS: ASPIRIN 81 MG PO SCH ×2 (06:56→20:24)
[2019-10-09] MEDS: PANTOPRAZOLE 40 MG TABLET PO SCH (06:57)
[2019-10-09] MEDS: EZETIMIBE 10 MG TAB PO SCH (06:57)
[2019-10-09 07:30] LABS: Basophils % (A) 0 %; Eosinophils % (A) 1 %; HCT 39.5 % (34.0-46.0); HGB 13.1 gm/dL (11.4-16.0); Lymphocytes % (A) 11 %; MCH 31.8 pg (25.0-35.0); MCHC 33.2 g/dL (31.0-37.0); MCV 95.8 fL (80.0-100.0); Monocytes # (A) 0.4 k/uL (0-1.0); Monocytes % (A) 4 %; Neutrophils # (A) 7.3 k/uL (1.3-7.7); Neutrophils % (A) 83 %; Platelet Count 221 k/uL (150-450); RBC 4.13 m/uL (3.80-5.40); RDW 12.9 % (11.5-15.5); WBC 8.7 k/uL (3.8-10.6)
[2019-10-09 08:25] LABS: ALT 42 U/L (4-34); AST 41 U/L (14-36); African American GFR (CKD) >90 (>60 ml/min/1.73 sqM); Albumin 3.8 g/dL (3.5-5.0); Alkaline Phosphatase 47 U/L (38-126); Anion Gap 7 mmol/L; Blood Urea Nitrogen 12 mg/dL (7-17); Calcium 8.7 mg/dL (8.4-10.2); Carbon Dioxide 24 mmol/L (22-30); Chloride 100 mmol/L (98-107); Glucose 102 mg/dL (74-99); Non-African American GFR(CKD) >90 (>60 ml/min/1.73 sqM); Potassium 4.4 mmol/L (3.5-5.1); Sodium 131 mmol/L (137-145); Total Bilirubin 0.7 mg/dL (0.2-1.3); Total Protein 6.3 g/dL (6.3-8.2)
[2019-10-09] MEDS ORDERED: NON FORMULARY DRUG (Biotin [Biotin] 5 MG) PO SCH (09:00)
--- NOTE | 2019-10-09 09:34 | P.PN ---
Subjective Progress Note Date: 10/09/19 Principal diagnosis: Right TKA Patient is seen at bedside this morning. She is postop day #1 from right total knee arthroplasty. She has pain at the surgical site as expected but denies any new complaints. He denies numbness, tingling or calf pain. Review of systems is negative for fever, chills, chest pain, shortness of breath or other Objective - Vital Signs Vital signs: Vital Signs Temp 98.1 F 10/09/19 07:00 Pulse 80 10/09/19 07:00 Resp 16 10/09/19 07:00 BP 172/72 10/09/19 07:00 Pulse Ox 93 L 10/09/19 07:00 Intake & Output 10/08/19 10/09/19 10/09/19 18:59 06:59 18:59 Intake Total 1451 Output Total 100 Balance 1351 Weight 69.7 kg Intake: IV 1451 Output: Estimated Blood Loss 100 Other: # Voids 1 2 - Exam Inspection reveals a benign surgical wound. There is no active bleeding or drainage. Neurovascular status is intact throughout the lower extremity with motor and sensation fully intact. Calf is soft and nontender. 2+ dorsalis pedis pulse and less than 2 second cap refill is present. - Constitutional General appearance: Present: no acute distress - Labs CBC & Chem 7: 10/09/19 07:04 10/09/19 07:04 Labs: Abnormal Lab Results - Last 24 Hours (Table) 10/09/19 Range/Units 07:04 Sodium 131 L (137-145) mmol/L Glucose 102 H (74-99) mg/dL AST 41 H (14-36) U/L ALT 42 H (4-34) U/L Assessment and Plan (1) S/P total knee arthroplasty Narrative/Plan: She will continue with routine postop orthopedic protocol including pain management, wound care, PT, DVT prophylaxis and medical management. Expect that she will transfer to home tomorrow Current Visit: Yes Status: Acute Priority: Medium Code(s): Z96.659 - PRESENCE OF UNSPECIFIED ARTIFICIAL KNEE JOINT SNOMED Code(s): 8289442760459 Time with Patient: Less than 30
[2019-10-09] MEDS: TRIMETHOPRIM 100 MG TAB PO SCH (11:38)
[2019-10-09] MEDS: MULTIVITAMINS, THERA 1 EACH TAB PO SCH (11:38)
[2019-10-09] MEDS ORDERED: METOCLOPRAMIDE 5 MG/ML 2 ML VIAL IVP PRN (15:58)
--- NOTE | 2019-10-09 16:27 | P.PN ---
Subjective Progress Note Date: 10/09/19 Sandra Nichole, is an 78-year-old female well known to my practice who was admitted by Dr. Mauro Rey and underwent right total knee arthroplasty due to advanced osteoarthritis that failed conservative management. Consultation was requested for management while hospitalized. Patient was seen and examined postoperatively, she was having nausea and vomiting, patient relates to taking [place] as a cause of her nausea and vomiting, she is having [id number] pain in her right knee area, otherwise she denies any complaints, there is no fever or chills no headache or dizziness no chest pain no shortness of breath no cough, no abdominal pain no blood in the stools no burning was urination no frequency or urgency no hematuria. Patient has a known history of hypertension, hypothyroidism, gastroesophageal reflux disease, and history of osteoarthritis and osteoporosis. On 10/09/2019 patient was seen and examined on the medical floor she is alert and oriented 3 in no apparent distress, she is complaining of nausea and vomiting, she is complaining of pain in the lower extremity otherwise she denies any complaints there is no fever or chills no headache or dizziness no chest pain no shortness of breath no cough no abdominal pain, no burning with urination no frequency or urgency and no hematuria, at this time will discontinue all hydromorphone and hydrocodone products, continue with pain management with morphine only, continue with Zofran and add Reglan for management of nausea and vomiting Objective - Vital Signs Vital signs: Vital Signs Temp 98.1 F 10/09/19 07:00 Pulse 80 10/09/19 07:00 Resp 16 10/09/19 07:00 BP 172/72 10/09/19 07:00 Pulse Ox 93 L 10/09/19 07:00 Intake & Output 10/08/19 10/09/19 10/09/19 18:59 06:59 18:59 Intake Total 1451 Output Total 100 Balance 1351 Weight 69.7 kg Intake: IV 1451 Output: Estimated Blood Loss 100 Other: # Voids 1 2 - Exam In general patient is alert and oriented 3 in no apparent distress HEENT head normocephalic and atraumatic Neck is supple no JVD no goiter no lymphadenopathy Chest exam reveals a few scattered crackles no wheezing Cardiac exam reveals regular heart sounds S1 and S2 no gallops no murmurs Abdomen is soft nontender no organomegaly with normal bowel sounds Extremity exam reveals no edema no cyanosis or clubbing Neurological examination reveals no gross focal deficits - Labs CBC & Chem 7: 10/09/19 07:04 10/09/19 07:04 Labs: Abnormal Lab Results - Last 24 Hours (Table) 10/09/19 Range/Units 07:04 Sodium 131 L (137-145) mmol/L Glucose 102 H (74-99) mg/dL AST 41 H (14-36) U/L ALT 42 H (4-34) U/L Assessment and Plan Plan: 1. Advanced osteoarthritis, status post right total knee arthroplasty. DVT prophylaxis as per orthopedic protocol 2. For pain management patient has an ALLERGY to codeine, advised to avoid [place] and use morphine if needed for pain management 3. Underlying history of hypertension well-controlled on medications 4. Underlying history of hyperlipidemia 5. Underlying history of hypothyroidism 6. Nausea and vomiting, likely related to using [place] and dilaudid, at this time continue using morphine only, continue Zofran and add Reglan for management of nausea and vomiting Home medications reviewed and reordered Will follow during this admission for medical management Please see orders
[2019-10-09] MEDS: SENNOSIDES-DOCUSATE SODIUM 1 EACH TAB PO SCH (20:24)
[2019-10-09] MEDS ORDERED: FUROSEMIDE 10 MG/ML 2 ML VIAL IV ONE (22:00)
[2019-10-09] MEDS: amLODIPine 5 MG TAB PO SCH (22:03)
[2019-10-10] MEDS: LACTATED RINGERS 1,000 ML IV SCH ×3 (01:16→08:37)
[2019-10-10] MEDS: MORPHINE SULFATE 2 MG/ML SYRINGE IVP PRN (04:47)
[2019-10-10] MEDS: LEVOTHYROXINE 25 MCG TAB PO SCH (05:30)
[2019-10-10 08:12] LABS: Basophils % (A) 0 %; Eosinophils # (A) 0.1 k/uL (0-0.7); Eosinophils % (A) 2 %; HCT 41.1 % (34.0-46.0); HGB 13.6 gm/dL (11.4-16.0); Lymphocytes # (A) 0.9 k/uL (1.0-4.8); Lymphocytes % (A) 11 %; MCH 30.5 pg (25.0-35.0); MCHC 33.1 g/dL (31.0-37.0); MCV 92.3 fL (80.0-100.0); Monocytes # (A) 0.5 k/uL (0-1.0); Monocytes % (A) 6 %; Neutrophils # (A) 6.4 k/uL (1.3-7.7); Neutrophils % (A) 81 %; Platelet Count 232 k/uL (150-450); RBC 4.45 m/uL (3.80-5.40); RDW 12.6 % (11.5-15.5); WBC 7.9 k/uL (3.8-10.6)
[2019-10-10] MEDS: MULTIVITAMINS, THERA 1 EACH TAB PO SCH (08:34)
[2019-10-10] MEDS: amLODIPine 5 MG TAB PO SCH (08:34)
[2019-10-10] MEDS: ASPIRIN 81 MG PO SCH ×2 (08:34→20:27)
[2019-10-10] MEDS: PANTOPRAZOLE 40 MG TABLET PO SCH (08:34)
[2019-10-10] MEDS: METOPROLOL SUCCINATE (ER) 25 MG TAB.ER.24H PO SCH (08:34)
[2019-10-10] MEDS: CHOLECALCIFEROL 1,000 UNIT TAB PO SCH (08:34)
[2019-10-10 08:35] LABS: ALT 37 U/L (4-34); AST 38 U/L (14-36); African American GFR (CKD) >90 (>60 ml/min/1.73 sqM); Albumin 4.4 g/dL (3.5-5.0); Alkaline Phosphatase 61 U/L (38-126); Anion Gap 13 mmol/L; Blood Urea Nitrogen 7 mg/dL (7-17); Calcium 8.9 mg/dL (8.4-10.2); Carbon Dioxide 25 mmol/L (22-30); Chloride 84 mmol/L (98-107); Glucose 118 mg/dL (74-99); Non-African American GFR(CKD) >90 (>60 ml/min/1.73 sqM); Potassium 3.5 mmol/L (3.5-5.1); Sodium 122 mmol/L (137-145); Total Bilirubin 1.6 mg/dL (0.2-1.3); Total Protein 7.1 g/dL (6.3-8.2)
[2019-10-10] MEDS: EZETIMIBE 10 MG TAB PO SCH (08:35)
[2019-10-10] MEDS ORDERED: SODIUM CHLORIDE 0.9% 1,000 ML IV STA (12:00)
--- NOTE | 2019-10-10 12:22 | P.PN ---
Progress Note - Text Progress Note Date: 10/10/19 Orthopedics: History of present illness: Patient is a pleasant 78-year-old female who is seen and examined the bedside for further evaluation of her right knee. She is status post right total knee arthroplasty performed by Dr. Rey on 10/08/2019. Patient's right knee pain postoperatively has been fairly well controlled. She continues to use an On-Q pain pump. She has ambulated some physical therapy and nursing states patient needs encouragement to get out of bed and increase mobilization. Patient does not feel stable or ready for discharge home today. Patient is also found to have hyponatremia with a sodium level currently at 122. She is voiding without difficulty. Dressing over the right knee remains clean, dry, and intact. She has no other complaints at the bedside. Patient denies nausea, vomiting, fever, chills. Physical Exam Total Knee Arthroplasty: Status post surgical day number 2 Patient is awake, alert, and oriented 3 Vital signs stable Good chest excursion with deep inspiration and expiration Abdomen soft nontender No signs or symptoms of DVT; no calf pain Dressing over the right knee is clean, dry, and intact; no erythema, purulence, or signs of infection Patient has full foot and ankle motion without difficulty with the right lower extremity On-Q pain pump intact Neurovascular status left lower extremity intact Capillary refill lower extremity is bilaterally less than 2 seconds Assessment: Status post right total knee arthroplasty for osteoarthritis Right knee pain Hyponatremia Hypertension Hyperlipidemia Plan: 1. Patient to remain weight-bear as tolerated on the right lower extremity; patient may work with physical therapy to increase mobility and ambulation 2. Continue pain control medications as prescribed including tramadol, MS Contin, morphine 3. Medicine to continue following the patient for his other medical diagnoses including hyponatremia 4. Patient to continue with anticoagulation with aspirin 81 mg twice a day 5. We'll continue to follow the patient closely. Depending on the patient's progress, she may be discharged home tomorrow or possibly remain in the hospital with plans for discharge to a rehabilitation facility is coming 10/12/2019 6. Patient can follow-up with Dr. Mauro Rey or Julito Spencer PA-C at [facility] in 2-3 weeks following discharge
[2019-10-10] MEDS: MORPHINE SULFATE ER 15 MG TABLET PO SCH ×2 (13:03→23:01)
[2019-10-10] MEDS: TRIMETHOPRIM 100 MG TAB PO SCH (13:03)
[2019-10-10] MEDS: SENNOSIDES-DOCUSATE SODIUM 1 EACH TAB PO SCH (20:27)
[2019-10-11] MEDS: LEVOTHYROXINE 25 MCG TAB PO SCH (05:27)
[2019-10-11 07:40] LABS: Basophils % (A) 0 %; Eosinophils # (A) 0.2 k/uL (0-0.7); Eosinophils % (A) 2 %; HCT 39.7 % (34.0-46.0); HGB 13.2 gm/dL (11.4-16.0); Lymphocytes % (A) 14 %; MCH 30.2 pg (25.0-35.0); MCHC 33.2 g/dL (31.0-37.0); Mean Platelet Volume 7.2; Monocytes # (A) 0.4 k/uL (0-1.0); Monocytes % (A) 5 %; Neutrophils # (A) 5.6 k/uL (1.3-7.7); Neutrophils % (A) 78 %; Platelet Count 256 k/uL (150-450); RBC 4.36 m/uL (3.80-5.40); RDW 12.6 % (11.5-15.5); WBC 7.2 k/uL (3.8-10.6)
[2019-10-11 07:47] LABS: ALT 30 U/L (4-34); AST 32 U/L (14-36); African American GFR (CKD) >90 (>60 ml/min/1.73 sqM); Albumin 3.6 g/dL (3.5-5.0); Alkaline Phosphatase 59 U/L (38-126); Anion Gap 10 mmol/L; Blood Urea Nitrogen 11 mg/dL (7-17); Calcium 8.4 mg/dL (8.4-10.2); Carbon Dioxide 22 mmol/L (22-30); Chloride 89 mmol/L (98-107); Glucose 107 mg/dL (74-99); Non-African American GFR(CKD) >90 (>60 ml/min/1.73 sqM); Potassium 3.6 mmol/L (3.5-5.1); Sodium 121 mmol/L (137-145); Total Bilirubin 1.5 mg/dL (0.2-1.3); Total Protein 6.3 g/dL (6.3-8.2)
[2019-10-11] MEDS: CHOLECALCIFEROL 1,000 UNIT TAB PO SCH (08:17)
[2019-10-11] MEDS: PANTOPRAZOLE 40 MG TABLET PO SCH (08:17)
[2019-10-11] MEDS: amLODIPine 5 MG TAB PO SCH (08:17)
[2019-10-11] MEDS: EZETIMIBE 10 MG TAB PO SCH (08:17)
[2019-10-11] MEDS: METOPROLOL SUCCINATE (ER) 25 MG TAB.ER.24H PO SCH (08:17)
[2019-10-11] MEDS: MULTIVITAMINS, THERA 1 EACH TAB PO SCH (08:17)
[2019-10-11] MEDS: ASPIRIN 81 MG PO SCH ×2 (08:17→20:06)
[2019-10-11] MEDS: MORPHINE SULFATE ER 15 MG TABLET PO SCH ×2 (08:18→20:06)
[2019-10-11] MEDS: SODIUM CHLORIDE 0.9% 1,000 ML IV SCH ×2 (08:25→16:55)
--- NOTE | 2019-10-11 10:03 | P.PN ---
Subjective Progress Note Date: 10/11/19 Sandra Nichole, is an 78-year-old female well known to my practice who was admitted by Dr. Mauro Rey and underwent right total knee arthroplasty due to advanced osteoarthritis that failed conservative management. Consultation was requested for management while hospitalized. Patient was seen and examined postoperatively, she was having nausea and vomiting, patient relates to taking [place] as a cause of her nausea and vomiting, she is having [id number] pain in her right knee area, otherwise she denies any complaints, there is no fever or chills no headache or dizziness no chest pain no shortness of breath no cough, no abdominal pain no blood in the stools no burning was urination no frequency or urgency no hematuria. Patient has a known history of hypertension, hypothyroidism, gastroesophageal reflux disease, and history of osteoarthritis and osteoporosis. On 10/09/2019 patient was seen and examined on the medical floor she is alert and oriented 3 in no apparent distress, she is complaining of nausea and vomiting, she is complaining of pain in the lower extremity otherwise she denies any complaints there is no fever or chills no headache or dizziness no chest pain no shortness of breath no cough no abdominal pain, no burning with urination no frequency or urgency and no hematuria, at this time will discontinue all hydromorphone and hydrocodone products, continue with pain management with morphine only, continue with Zofran and add Reglan for management of nausea and vomiting On 10/10/2019 patient was seen and examined on the medical floor she is alert and oriented 3 in no apparent distress nausea and vomiting has improved significantly, sodium is very low at 122 likely related to vomiting, at this time will change IV fluid to normal saline at 50 mL an hour, otherwise patient denies any complaint at this time there is no fever or chills no headache or dizziness no chest pain no shortness of breath no cough no nausea or vomiting no abdominal pain no diarrhea no burning with urination no frequency or urgency and no hematuria. At this time patient seems to be able to tolerate morphine well, but is and able to tolerate any hydrocodone products, will start patient on morphine extended release 15 mg twice daily. On 10/11/2019 patient was seen and examined on the medical floor she is alert and oriented 3 in no apparent distress there is no fever or chills no headache or dizziness no chest pain no shortness of breath no cough no nausea or vomiting no abdominal pain no diarrhea no burning with urination no frequency or urgency no hematuria. Pain is well-controlled, however patient is feeling tired because of morphine, at this time will change morphine ER 15 mg once daily at bedtime, continue using Tylenol during the day, sodium is low at 121, will increase normal saline to 100 mL/h, patient advised to decrease free water intake, physical therapy and occupational therapy consulted, patient may need to go to rehab after this admission, Lovenox 40 mg subcu daily@ Objective - Vital Signs Vital signs: Vital Signs Temp 97.6 F 10/11/19 07:00 Pulse 80 10/11/19 07:00 Resp 18 10/11/19 07:00 BP 170/88 10/11/19 07:00 Pulse Ox 94 L 10/11/19 07:00 Intake & Output 10/10/19 10/11/19 10/11/19 18:59 06:59 18:59 Intake Total 780 575 680 Output Total 850 Balance -70 575 680 Intake: Intake, IV Titration 200 575 100 Amount Lactated Ringers 1,000 ml 200 @ 100 mls/hr IV .Q10H [facility] Rx#:[id number] Sodium Chloride 0.9% 1, 100 000 ml @ 100 mls/hr IV . Q10H [facility] Rx#:[id number] Sodium Chloride 0.9% 1, 575 000 ml @ 50 mls/hr IV . Q20H [facility] Rx#:[id number] Oral 580 580 Output: Urine 850 Other: Voiding Method Diaper Diaper Diaper Incontinent Incontinent Incontinent # Voids 1 1 2 - Exam In general patient is alert and oriented 3 in no apparent distress HEENT head normocephalic and atraumatic Neck is supple no JVD no goiter no lymphadenopathy Chest exam reveals a few scattered crackles no wheezing Cardiac exam reveals regular heart sounds S1 and S2 no gallops no murmurs Abdomen is soft nontender no organomegaly with normal bowel sounds Extremity exam reveals no edema no cyanosis or clubbing Neurological examination reveals no gross focal deficits - Labs CBC & Chem 7: 10/11/19 06:58 10/11/19 06:58 Labs: Abnormal Lab Results - Last 24 Hours (Table) 10/11/19 Range/Units 06:58 Sodium 121 L (137-145) mmol/L Chloride 89 L (98-107) mmol/L Creatinine 0.43 L (0.52-1.04) mg/dL Glucose 107 H (74-99) mg/dL Total Bilirubin 1.5 H (0.2-1.3) mg/dL Assessment and Plan Plan: 1. Advanced osteoarthritis, status post right total knee arthroplasty. DVT prophylaxis as per orthopedic protocol 2. For pain management patient has an ALLERGY to codeine, advised to avoid [place] and use morphine if needed for pain management 3. Underlying history of hypertension well-controlled on medications 4. Underlying history of hyperlipidemia 5. Underlying history of hypothyroidism 6. Nausea and vomiting, likely related to using [place] and dilaudid, at this time continue using morphine only, continue Zofran and add Reglan for management of nausea and vomiting Home medications reviewed and reordered Will follow during this admission for medical management Please see orders
[2019-10-11] MEDS: ENOXAPARIN 40 MG/0.4 ML SYRINGE SQ SCH (10:54)
[2019-10-11] MEDS: TRIMETHOPRIM 100 MG TAB PO SCH (12:43)
--- NOTE | 2019-10-11 13:20 | P.PN ---
Progress Note - Text Progress Note Date: 10/11/19 Orthopedics: History of present illness: Patient is a pleasant 78-year-old female who is seen and examined the bedside for further evaluation of her right knee. She is status post right total knee arthroplasty performed by Dr. Rey on 10/08/2019. Patient's right knee pain postoperatively has been fairly well controlled and is better controlled today. She continues to use an On-Q pain pump. She states she has been able to increase her mobility with physical therapy and was able to ambulate to the restroom. She feels better today as compared to yesterday. She does continue to feel she would not be limited care of herself at home. She is planned for discharge to a rehabilitation facility. Consultation has been placed with case management to set up discharge planning to a rehabilitation facility. Patient continues to have difficulty with hyponatremia with a sodium level currently at 121. She is voiding without difficulty. She has no other complaints at the bedside. Patient denies nausea, vomiting, fever, chills. Physical Exam Total Knee Arthroplasty: Status post surgical day number 3 Patient is awake, alert, and oriented 3 Vital signs stable Good chest excursion with deep inspiration and expiration Abdomen soft nontender No signs or symptoms of DVT; no calf pain Dressing over the right knee is dry and intact with some small areas of dried blood; no erythema, purulence, or signs of infection Dressing is removed and reapplied during physical examination Minimal bloody drainage with palpation at the inferior portion of the incision site No erythema, purulence, or obvious sign of infection at the incision site Patient has full foot and ankle motion without difficulty with the right lower extremity On-Q pain pump intact Neurovascular status left lower extremity intact Capillary refill lower extremity is bilaterally less than 2 seconds Assessment: Status post right total knee arthroplasty for osteoarthritis Right knee pain Hyponatremia Hypertension Hyperlipidemia Plan: 1. Patient to remain weight-bear as tolerated on the right lower extremity; patient may work with physical therapy to increase mobility and ambulation 2. Continue pain control medications as prescribed including tramadol, MS Contin, morphine 3. Medicine to continue following the patient for his other medical diagnoses including hyponatremia 4. Patient to continue with anticoagulation with aspirin 81 mg twice a day 5. Pain management to continue managing her On-Q pain pump 6. We'll continue to follow the patient closely. Patient has been progressing since yesterday but overall is progressing somewhat slowly postoperatively. She does not feel she can care for her self at home. Consultation has been placed with case management. We will plan have him set up discharge planning to a rehabilitation facility once cleared by medicine. 7. Patient can follow-up with Dr. Mauro Rey or Julito Spencer PA-C at [facility] in 2-3 weeks following discharge
[2019-10-11] MEDS: ACETAMINOPHEN TAB 325 MG TAB PO PRN (19:03)
[2019-10-11] MEDS: SENNOSIDES-DOCUSATE SODIUM 1 EACH TAB PO SCH (20:06)
[2019-10-12] MEDS: traMADol 50 MG TAB PO PRN ×3 (03:16→20:20)
[2019-10-12] MEDS: LEVOTHYROXINE 25 MCG TAB PO SCH (05:30)
[2019-10-12] MEDS: SODIUM CHLORIDE 0.9% 1,000 ML IV SCH ×3 (05:32→20:20)
[2019-10-12] MEDS: METOPROLOL SUCCINATE (ER) 25 MG TAB.ER.24H PO SCH (07:38)
[2019-10-12] MEDS: ASPIRIN 81 MG PO SCH ×2 (07:38→20:19)
[2019-10-12] MEDS: MULTIVITAMINS, THERA 1 EACH TAB PO SCH (07:38)
[2019-10-12] MEDS: CHOLECALCIFEROL 1,000 UNIT TAB PO SCH (07:38)
[2019-10-12] MEDS: ENOXAPARIN 40 MG/0.4 ML SYRINGE SQ SCH (07:38)
[2019-10-12] MEDS: EZETIMIBE 10 MG TAB PO SCH (07:38)
[2019-10-12] MEDS: amLODIPine 5 MG TAB PO SCH (07:38)
[2019-10-12] MEDS: PANTOPRAZOLE 40 MG TABLET PO SCH ×2 (07:39)
[2019-10-12 07:57] LABS: Basophils % (A) 0 %; Eosinophils # (A) 0.2 k/uL (0-0.7); Eosinophils % (A) 4 %; HCT 37.3 % (34.0-46.0); HGB 12.3 gm/dL (11.4-16.0); Lymphocytes # (A) 0.7 k/uL (1.0-4.8); Lymphocytes % (A) 15 %; MCH 30.3 pg (25.0-35.0); MCHC 32.9 g/dL (31.0-37.0); Mean Platelet Volume 7.2; Monocytes # (A) 0.4 k/uL (0-1.0); Monocytes % (A) 8 %; Neutrophils # (A) 3.3 k/uL (1.3-7.7); Neutrophils % (A) 71 %; Platelet Count 258 k/uL (150-450); RBC 4.06 m/uL (3.80-5.40); RDW 12.8 % (11.5-15.5); WBC 4.6 k/uL (3.8-10.6)
[2019-10-12 08:08] LABS: ALT 31 U/L (4-34); AST 30 U/L (14-36); African American GFR (CKD) >90 (>60 ml/min/1.73 sqM); Albumin 3.3 g/dL (3.5-5.0); Alkaline Phosphatase 53 U/L (38-126); Anion Gap 8 mmol/L; Blood Urea Nitrogen 8 mg/dL (7-17); Carbon Dioxide 22 mmol/L (22-30); Chloride 98 mmol/L (98-107); Glucose 106 mg/dL (74-99); Non-African American GFR(CKD) >90 (>60 ml/min/1.73 sqM); Potassium 3.6 mmol/L (3.5-5.1); Sodium 128 mmol/L (137-145); Total Protein 5.9 g/dL (6.3-8.2)
[2019-10-12] MEDS: TRIMETHOPRIM 100 MG TAB PO SCH (11:17)
--- NOTE | 2019-10-12 14:07 | P.PN ---
Subjective Progress Note Date: 10/12/19 Principal diagnosis: Right TKA Patient is seen at bedside this morning. She is POD# 4 from right total knee arthroplasty. She has pain at the surgical site as expected but denies any new complaints. She denies numbness, tingling or calf pain. Review of systems is negative for fever, chills, chest pain, shortness of breath or other Objective - Vital Signs Vital signs: Vital Signs Temp 98.3 F 10/12/19 07:00 Pulse 85 10/12/19 07:00 Resp 16 10/12/19 07:00 BP 149/82 10/12/19 07:00 Pulse Ox 95 10/12/19 07:00 Intake & Output 10/11/19 10/12/19 10/12/19 18:59 06:59 18:59 Intake Total 680 1150 780 Balance 680 1150 780 Intake: Intake, IV Titration 100 1150 200 Amount Sodium Chloride 0.9% 1, 100 1150 200 000 ml @ 100 mls/hr IV . Q10H [facility] Rx#:[id number] Oral 580 580 Other: Voiding Method Diaper Diaper Diaper Incontinent Incontinent Incontinent # Voids 2 2 2 - Exam Inspection reveals a benign surgical wound. There is no active bleeding or drainage. Neurovascular status is intact throughout the lower extremity with motor and sensation fully intact. Calf is soft and nontender. 2+ dorsalis pedis pulse and less than 2 second cap refill is present. - Constitutional General appearance: Present: no acute distress - Labs CBC & Chem 7: 10/12/19 07:10 10/12/19 07:10 Labs: Abnormal Lab Results - Last 24 Hours (Table) 10/12/19 10/12/19 Range/Units 07:10 07:10 Lymphocytes # 0.7 L (1.0-4.8) k/uL Sodium 128 L (137-145) mmol/L Creatinine 0.46 L (0.52-1.04) mg/dL Glucose 106 H (74-99) mg/dL Calcium 8.0 L (8.4-10.2) mg/dL Total Protein 5.9 L (6.3-8.2) g/dL Albumin 3.3 L (3.5-5.0) g/dL Assessment and Plan (1) S/P total knee arthroplasty Narrative/Plan: She will continue with routine postop orthopedic protocol including pain management, wound care, PT, DVT prophylaxis and medical management. Expect that she will transfer to home tomorrow Current Visit: Yes Status: Acute Priority: Medium Code(s): Z96.659 - PRESENCE OF UNSPECIFIED ARTIFICIAL KNEE JOINT SNOMED Code(s): 6497622932963 Time with Patient: Less than 30
[2019-10-12] MEDS: MORPHINE SULFATE 2 MG/ML SYRINGE IVP PRN (15:39)
--- NOTE | 2019-10-12 17:38 | P.PN ---
Subjective Progress Note Date: 10/12/19 Sandra Nichole, is an 78-year-old female well known to my practice who was admitted by Dr. Mauro Rey and underwent right total knee arthroplasty due to advanced osteoarthritis that failed conservative management. Consultation was requested for management while hospitalized. Patient was seen and examined postoperatively, she was having nausea and vomiting, patient relates to taking [place] as a cause of her nausea and vomiting, she is having [id number] pain in her right knee area, otherwise she denies any complaints, there is no fever or chills no headache or dizziness no chest pain no shortness of breath no cough, no abdominal pain no blood in the stools no burning was urination no frequency or urgency no hematuria. Patient has a known history of hypertension, hypothyroidism, gastroesophageal reflux disease, and history of osteoarthritis and osteoporosis. On 10/09/2019 patient was seen and examined on the medical floor she is alert and oriented 3 in no apparent distress, she is complaining of nausea and vomiting, she is complaining of pain in the lower extremity otherwise she denies any complaints there is no fever or chills no headache or dizziness no chest pain no shortness of breath no cough no abdominal pain, no burning with urination no frequency or urgency and no hematuria, at this time will discontinue all hydromorphone and hydrocodone products, continue with pain management with morphine only, continue with Zofran and add Reglan for management of nausea and vomiting On 10/10/2019 patient was seen and examined on the medical floor she is alert and oriented 3 in no apparent distress nausea and vomiting has improved significantly, sodium is very low at 122 likely related to vomiting, at this time will change IV fluid to normal saline at 50 mL an hour, otherwise patient denies any complaint at this time there is no fever or chills no headache or dizziness no chest pain no shortness of breath no cough no nausea or vomiting no abdominal pain no diarrhea no burning with urination no frequency or urgency and no hematuria. At this time patient seems to be able to tolerate morphine well, but is and able to tolerate any hydrocodone products, will start patient on morphine extended release 15 mg twice daily. On 10/11/2019 patient was seen and examined on the medical floor she is alert and oriented 3 in no apparent distress there is no fever or chills no headache or dizziness no chest pain no shortness of breath no cough no nausea or vomiting no abdominal pain no diarrhea no burning with urination no frequency or urgency no hematuria. Pain is well-controlled, however patient is feeling tired because of morphine, at this time will change morphine ER 15 mg once daily at bedtime, continue using Tylenol during the day, sodium is low at 121, will increase normal saline to 100 mL/h, patient advised to decrease free water intake, physical therapy and occupational therapy consulted, patient may need to go to rehab after this admission, Lovenox 40 mg subcu daily@ On 10/12/2019 patient was seen and examined on the medical floor is alert and oriented 3 in no distress there is no fever or chills no headache or dizziness no chest pain no shortness of breath no cough no nausea or vomiting no abdominal pain no diarrhea no burning with urination no frequency or urgency and no hematuria, sodium has improved from 121-128 Objective - Vital Signs Vital signs: Vital Signs Temp 98.3 F 10/12/19 07:00 Pulse 85 10/12/19 07:00 Resp 16 10/12/19 07:00 BP 149/82 10/12/19 07:00 Pulse Ox 95 10/12/19 07:00 Intake & Output 10/11/19 10/12/19 10/12/19 18:59 06:59 18:59 Intake Total 680 1150 780 Balance 680 1150 780 Intake: Intake, IV Titration 100 1150 200 Amount Sodium Chloride 0.9% 1, 100 1150 200 000 ml @ 100 mls/hr IV . Q10H [facility] Rx#:[id number] Oral 580 580 Other: Voiding Method Diaper Diaper Diaper Incontinent Incontinent Incontinent # Voids 2 2 2 - Exam In general patient is alert and oriented 3 in no apparent distress HEENT head normocephalic and atraumatic Neck is supple no JVD no goiter no lymphadenopathy Chest exam reveals a few scattered crackles no wheezing Cardiac exam reveals regular heart sounds S1 and S2 no gallops no murmurs Abdomen is soft nontender no organomegaly with normal bowel sounds Extremity exam reveals no edema no cyanosis or clubbing Neurological examination reveals no gross focal deficits - Labs CBC & Chem 7: 10/12/19 07:10 10/12/19 07:10 Labs: Abnormal Lab Results - Last 24 Hours (Table) 10/12/19 10/12/19 Range/Units 07:10 07:10 Lymphocytes # 0.7 L (1.0-4.8) k/uL Sodium 128 L (137-145) mmol/L Creatinine 0.46 L (0.52-1.04) mg/dL Glucose 106 H (74-99) mg/dL Calcium 8.0 L (8.4-10.2) mg/dL Total Protein 5.9 L (6.3-8.2) g/dL Albumin 3.3 L (3.5-5.0) g/dL Assessment and Plan Plan: 1. Advanced osteoarthritis, status post right total knee arthroplasty. DVT prophylaxis as per orthopedic protocol 2. For pain management patient has an ALLERGY to codeine, advised to avoid [place] and use morphine if needed for pain management 3. Underlying history of hypertension well-controlled on medications 4. Underlying history of hyperlipidemia 5. Underlying history of hypothyroidism 6. Nausea and vomiting, likely related to using [place] and dilaudid, at this time continue using morphine only, continue Zofran and add Reglan for management of nausea and vomiting Home medications reviewed and reordered Will follow during this admission for medical management Please see orders
[2019-10-12] MEDS: MORPHINE SULFATE ER 15 MG TABLET PO SCH (20:19)
[2019-10-12] MEDS: SENNOSIDES-DOCUSATE SODIUM 1 EACH TAB PO SCH (20:19)
[2019-10-13] MEDS: LEVOTHYROXINE 25 MCG TAB PO SCH (05:49)
[2019-10-13] MEDS: CHOLECALCIFEROL 1,000 UNIT TAB PO SCH (07:46)
[2019-10-13] MEDS: PANTOPRAZOLE 40 MG TABLET PO SCH (07:46)
[2019-10-13] MEDS: ASPIRIN 81 MG PO SCH ×2 (07:46→20:04)
[2019-10-13] MEDS: ENOXAPARIN 40 MG/0.4 ML SYRINGE SQ SCH (07:46)
[2019-10-13] MEDS: amLODIPine 5 MG TAB PO SCH (07:46)
[2019-10-13] MEDS: EZETIMIBE 10 MG TAB PO SCH (07:47)
[2019-10-13] MEDS: traMADol 50 MG TAB PO PRN ×2 (07:47→16:48)
[2019-10-13] MEDS: METOPROLOL SUCCINATE (ER) 25 MG TAB.ER.24H PO SCH (07:47)
[2019-10-13] MEDS: MULTIVITAMINS, THERA 1 EACH TAB PO SCH (07:47)
[2019-10-13] MEDS: SODIUM CHLORIDE 0.9% 1,000 ML IV SCH ×2 (07:48→16:49)
--- NOTE | 2019-10-13 08:09 | P.PN ---
Subjective Progress Note Date: 10/13/19 Principal diagnosis: Right TKA Patient is seen at bedside this morning. She is POD# 5 from right total knee arthroplasty. She has pain at the surgical site as expected but denies any new complaints. She has been slow with being able to walk. She denies numbness, tingling or calf pain. Review of systems is negative for fever, chills, chest pain, shortness of breath or other Objective - Vital Signs Vital signs: Vital Signs Temp 98.6 F 10/13/19 07:00 Pulse 84 10/13/19 07:00 Resp 18 10/13/19 07:00 BP 147/84 10/13/19 07:00 Pulse Ox 95 10/13/19 07:00 Intake & Output 10/12/19 10/13/19 10/13/19 18:59 06:59 18:59 Intake Total 780 Balance 780 Intake: Intake, IV Titration 200 Amount Sodium Chloride 0.9% 1, 200 000 ml @ 100 mls/hr IV . Q10H [facility] Rx#:[id number] Oral 580 Other: Voiding Method Diaper Diaper Incontinent Incontinent Incontinent # Voids 2 1 - Exam Inspection reveals a benign surgical wound. There is no active bleeding or drainage. Neurovascular status is intact throughout the lower extremity with motor and sensation fully intact. Calf is soft and nontender. 2+ dorsalis pedis pulse and less than 2 second cap refill is present. - Constitutional General appearance: Present: no acute distress - Labs CBC & Chem 7: 10/12/19 07:10 10/12/19 07:10 Labs: Abnormal Lab Results - Last 24 Hours (Table) 10/12/19 Range/Units 07:10 Sodium 128 L (137-145) mmol/L Creatinine 0.46 L (0.52-1.04) mg/dL Glucose 106 H (74-99) mg/dL Calcium 8.0 L (8.4-10.2) mg/dL Total Protein 5.9 L (6.3-8.2) g/dL Albumin 3.3 L (3.5-5.0) g/dL Assessment and Plan (1) S/P total knee arthroplasty Narrative/Plan: She will continue with routine postop orthopedic protocol including pain management, wound care, PT, DVT prophylaxis and medical management. Expect that she will transfer to home or ECF within next 1-2 days. Current Visit: Yes Status: Acute Priority: Medium Code(s): Z96.659 - PRESENCE OF UNSPECIFIED ARTIFICIAL KNEE JOINT SNOMED Code(s): 1493699055474 Time with Patient: Less than 30
[2019-10-13] MEDS: MORPHINE SULFATE 2 MG/ML SYRINGE IVP PRN ×2 (10:37→13:56)
[2019-10-13 11:22] LABS: Basophils % (A) 0 %; Eosinophils # (A) 0.2 k/uL (0-0.7); Eosinophils % (A) 4 %; HGB 13.3 gm/dL (11.4-16.0); Lymphocytes # (A) 0.7 k/uL (1.0-4.8); Lymphocytes % (A) 15 %; MCH 32.8 pg (25.0-35.0); MCV 93.7 fL (80.0-100.0); Mean Platelet Volume 6.7; Monocytes # (A) 0.4 k/uL (0-1.0); Monocytes % (A) 9 %; Neutrophils # (A) 3.4 k/uL (1.3-7.7); Neutrophils % (A) 70 %; Platelet Count 270 k/uL (150-450); RBC 4.06 m/uL (3.80-5.40); RDW 13.1 % (11.5-15.5); WBC 4.9 k/uL (3.8-10.6)
[2019-10-13 11:31] LABS: ALT 39 U/L (4-34); AST 35 U/L (14-36); African American GFR (CKD) >90 (>60 ml/min/1.73 sqM); Albumin 3.6 g/dL (3.5-5.0); Alkaline Phosphatase 55 U/L (38-126); Anion Gap 8 mmol/L; Blood Urea Nitrogen 9 mg/dL (7-17); Calcium 8.6 mg/dL (8.4-10.2); Carbon Dioxide 27 mmol/L (22-30); Chloride 94 mmol/L (98-107); Glucose 98 mg/dL (74-99); Non-African American GFR(CKD) >90 (>60 ml/min/1.73 sqM); Potassium 3.4 mmol/L (3.5-5.1); Sodium 129 mmol/L (137-145); Total Bilirubin 0.7 mg/dL (0.2-1.3)
--- NOTE | 2019-10-13 12:18 | P.PN ---
Subjective Progress Note Date: 10/13/19 Sandra Nichole, is an 78-year-old female well known to my practice who was admitted by Dr. Mauro Rey and underwent right total knee arthroplasty due to advanced osteoarthritis that failed conservative management. Consultation was requested for management while hospitalized. Patient was seen and examined postoperatively, she was having nausea and vomiting, patient relates to taking [place] as a cause of her nausea and vomiting, she is having [id number] pain in her right knee area, otherwise she denies any complaints, there is no fever or chills no headache or dizziness no chest pain no shortness of breath no cough, no abdominal pain no blood in the stools no burning was urination no frequency or urgency no hematuria. Patient has a known history of hypertension, hypothyroidism, gastroesophageal reflux disease, and history of osteoarthritis and osteoporosis. On 10/09/2019 patient was seen and examined on the medical floor she is alert and oriented 3 in no apparent distress, she is complaining of nausea and vomiting, she is complaining of pain in the lower extremity otherwise she denies any complaints there is no fever or chills no headache or dizziness no chest pain no shortness of breath no cough no abdominal pain, no burning with urination no frequency or urgency and no hematuria, at this time will discontinue all hydromorphone and hydrocodone products, continue with pain management with morphine only, continue with Zofran and add Reglan for management of nausea and vomiting On 10/10/2019 patient was seen and examined on the medical floor she is alert and oriented 3 in no apparent distress nausea and vomiting has improved significantly, sodium is very low at 122 likely related to vomiting, at this time will change IV fluid to normal saline at 50 mL an hour, otherwise patient denies any complaint at this time there is no fever or chills no headache or dizziness no chest pain no shortness of breath no cough no nausea or vomiting no abdominal pain no diarrhea no burning with urination no frequency or urgency and no hematuria. At this time patient seems to be able to tolerate morphine well, but is and able to tolerate any hydrocodone products, will start patient on morphine extended release 15 mg twice daily. On 10/11/2019 patient was seen and examined on the medical floor she is alert and oriented 3 in no apparent distress there is no fever or chills no headache or dizziness no chest pain no shortness of breath no cough no nausea or vomiting no abdominal pain no diarrhea no burning with urination no frequency or urgency no hematuria. Pain is well-controlled, however patient is feeling tired because of morphine, at this time will change morphine ER 15 mg once daily at bedtime, continue using Tylenol during the day, sodium is low at 121, will increase normal saline to 100 mL/h, patient advised to decrease free water intake, physical therapy and occupational therapy consulted, patient may need to go to rehab after this admission, Lovenox 40 mg subcu daily@ On 10/12/2019 patient was seen and examined on the medical floor is alert and oriented 3 in no distress there is no fever or chills no headache or dizziness no chest pain no shortness of breath no cough no nausea or vomiting no abdominal pain no diarrhea no burning with urination no frequency or urgency and no hematuria, sodium has improved from 121-128. On 10/13/2019 patient was seen and examined on the medical floor she is alert and oriented 3 in no apparent distress she is able to ambulate better, sodium is up from 128 -129 there is no fever or chills no headache or dizziness no chest pain no shortness of breath no cough no nausea or vomiting no abdominal pain no diarrhea no burning with urination no frequency or urgency no hematuria Objective - Vital Signs Vital signs: Vital Signs Temp 98.6 F 10/13/19 07:00 Pulse 84 10/13/19 07:00 Resp 18 10/13/19 07:00 BP 147/84 10/13/19 07:00 Pulse Ox 95 10/13/19 07:00 Intake & Output 10/12/19 10/13/19 10/13/19 18:59 06:59 18:59 Intake Total 780 Balance 780 Intake: Intake, IV Titration 200 Amount Sodium Chloride 0.9% 1, 200 000 ml @ 100 mls/hr IV . Q10H [facility] Rx#:[id number] Oral 580 Other: Voiding Method Diaper Diaper Incontinent Incontinent Incontinent # Voids 2 1 - Exam In general patient is alert and oriented 3 in no apparent distress HEENT head normocephalic and atraumatic Neck is supple no JVD no goiter no lymphadenopathy Chest exam reveals a few scattered crackles no wheezing Cardiac exam reveals regular heart sounds S1 and S2 no gallops no murmurs Abdomen is soft nontender no organomegaly with normal bowel sounds Extremity exam reveals no edema no cyanosis or clubbing Neurological examination reveals no gross focal deficits - Labs CBC & Chem 7: 10/13/19 11:00 10/13/19 11:00 Assessment and Plan Plan: 1. Advanced osteoarthritis, status post right total knee arthroplasty. DVT prophylaxis as per orthopedic protocol 2. For pain management patient has an ALLERGY to codeine, advised to avoid [place] and use morphine if needed for pain management 3. Underlying history of hypertension well-controlled on medications 4. Underlying history of hyperlipidemia 5. Underlying history of hypothyroidism 6. Nausea and vomiting, likely related to using [place] and dilaudid, at this time continue using morphine only, continue Zofran and add Reglan for management of nausea and vomiting 7. Severe hyponatremia likely related to vomiting, improving with IV normal saline Home medications reviewed and reordered Will follow during this admission for medical management Patient improving gradually possible transfer to the senior care in the next 1- 2 days
[2019-10-13] MEDS: TRIMETHOPRIM 100 MG TAB PO SCH (13:57)
[2019-10-13] MEDS: MORPHINE SULFATE ER 15 MG TABLET PO SCH (20:04)
[2019-10-13] MEDS: SENNOSIDES-DOCUSATE SODIUM 1 EACH TAB PO SCH (20:04)
[2019-10-14] MEDS: SODIUM CHLORIDE 0.9% 1,000 ML IV SCH ×2 (02:03→16:09)
[2019-10-14] MEDS: LEVOTHYROXINE 25 MCG TAB PO SCH (05:15)
[2019-10-14] MEDS: traMADol 50 MG TAB PO PRN ×3 (05:22→18:16)
[2019-10-14 07:39] LABS: Basophils % (A) 0 %; Eosinophils # (A) 0.2 k/uL (0-0.7); Eosinophils % (A) 4 %; HCT 38.8 % (34.0-46.0); HGB 12.8 gm/dL (11.4-16.0); Lymphocytes # (A) 0.8 k/uL (1.0-4.8); Lymphocytes % (A) 14 %; MCH 30.4 pg (25.0-35.0); MCV 92.2 fL (80.0-100.0); Mean Platelet Volume 6.8; Monocytes # (A) 0.3 k/uL (0-1.0); Monocytes % (A) 6 %; Neutrophils # (A) 3.9 k/uL (1.3-7.7); Neutrophils % (A) 74 %; Platelet Count 291 k/uL (150-450); RBC 4.21 m/uL (3.80-5.40); WBC 5.4 k/uL (3.8-10.6)
[2019-10-14 07:40] LABS: ALT 44 U/L (4-34); AST 36 U/L (14-36); African American GFR (CKD) >90 (>60 ml/min/1.73 sqM); Albumin 3.4 g/dL (3.5-5.0); Alkaline Phosphatase 56 U/L (38-126); Anion Gap 7 mmol/L; Blood Urea Nitrogen 9 mg/dL (7-17); Calcium 8.2 mg/dL (8.4-10.2); Carbon Dioxide 25 mmol/L (22-30); Chloride 97 mmol/L (98-107); Glucose 103 mg/dL (74-99); Non-African American GFR(CKD) >90 (>60 ml/min/1.73 sqM); Potassium 3.7 mmol/L (3.5-5.1); Sodium 129 mmol/L (137-145); Total Protein 5.9 g/dL (6.3-8.2)
[2019-10-14] MEDS: ENOXAPARIN 40 MG/0.4 ML SYRINGE SQ SCH (07:54)
[2019-10-14] MEDS: amLODIPine 5 MG TAB PO SCH (07:54)
[2019-10-14] MEDS: METOPROLOL SUCCINATE (ER) 25 MG TAB.ER.24H PO SCH (07:54)
[2019-10-14] MEDS: CHOLECALCIFEROL 1,000 UNIT TAB PO SCH (07:54)
[2019-10-14] MEDS: MULTIVITAMINS, THERA 1 EACH TAB PO SCH (07:54)
[2019-10-14] MEDS: PANTOPRAZOLE 40 MG TABLET PO SCH (07:54)
[2019-10-14] MEDS: EZETIMIBE 10 MG TAB PO SCH (07:54)
[2019-10-14] MEDS: ASPIRIN 81 MG PO SCH ×2 (07:54→19:54)
[2019-10-14] MEDS: ACETAMINOPHEN TAB 325 MG TAB PO PRN ×2 (07:55→13:28)
--- NOTE | 2019-10-14 10:55 | P.DS ---
Providers Date of admission: 10/10/19 09:04 Expected date of discharge: 10/14/19 Attending physician: Mauro Rey Consults: 10/08/19 09:30 Consult Physician Routine Consulting Provider: Severino Solis Consult Reason/Comments: post op medical management Do you want consulting provider notified?: Yes Primary care physician: Severino Solis - Discharge Diagnosis(es) (1) S/P total knee arthroplasty Patient was admitted to the OR on 10/08/2019 to undergo a right total knee arthroplasty. She had failed conservative measures as an outpatient and desired to proceed with elective surgery after given informed consent. She underwent the above procedure which she tolerated well without complication. Postoperative hospital course has remained without complication. On day of discharge she is afebrile, vital signs stable, labs within acceptable ranges, tolerating by mouth meds and diet, voiding without difficulty, positive flatus, denies abdominal pain or calf pain, pain is controlled on oral pain medication and has no new complaints. Wound is benign, neurovascular status is intact, calf is soft and nontender, abdomen soft and nontender. Review of systems is negative for numbness, tingling, fever, chills, chest pain, shortness of breath, nausea, vomiting, dizziness, headaches, slurred speech or other. Current Visit: Yes Status: Acute Priority: Medium Procedures: Right TKA Patient Condition at Discharge: Good Plan - Discharge Summary Discharge Rx Participant: Yes New Discharge Prescriptions: New Aspirin [Adult Low Dose Aspirin EC] 81 mg PO BID #60 tablet. HYDROcodone/APAP 7.5-325MG [[place] 7.5-325] 1 - 2 each PO Q6HR PRN #56 tab PRN Reason: Pain Ondansetron [Zofran] 4 mg PO Q8HR PRN #28 tab PRN Reason: Nausea No Action Cholecalciferol [Vitamin D3 (25 Mcg = 1000 Iu)] 2,000 units PO DAILY Omeprazole 20 mg PO QAM Naproxen Sodium [Aleve] 440 mg PO DAILY Ezetimibe [Zetia] 10 mg PO DAILY Trimethoprim 100 mg PO PC-LUNCH Levothyroxine Sodium 25 mcg PO DAILY Biotin 5 mg PO DAILY Metoprolol Succinate (ER) [Toprol Xl] 25 mg PO DAILY Discharge Medication List Cholecalciferol [Vitamin D3 (25 Mcg = 1000 Iu)] 2,000 units PO DAILY 05/03/15 [History] Omeprazole 20 mg PO QAM 03/10/17 [History] Naproxen Sodium [Aleve] 440 mg PO DAILY 01/19/19 [History] Biotin 5 mg PO DAILY 10/01/19 [History] Ezetimibe [Zetia] 10 mg PO DAILY 10/01/19 [History] Levothyroxine Sodium 25 mcg PO DAILY 10/01/19 [History] Metoprolol Succinate (ER) [Toprol Xl] 25 mg PO DAILY 10/01/19 [History] Trimethoprim 100 mg PO PC-LUNCH 10/01/19 [History] Aspirin [Adult Low Dose Aspirin EC] 81 mg PO BID #60 tablet. 10/09/19 [Rx] HYDROcodone/APAP 7.5-325MG [[place] 7.5-325] 1 - 2 each PO Q6HR PRN #56 tab 10/09/19 [Rx] Ondansetron [Zofran] 4 mg PO Q8HR PRN #28 tab 10/09/19 [Rx] Follow up Appointment(s)/Referral(s): [facility], [NON-STAFF] - As Needed [facility], [NON-STAFF] - As Needed Mauro Rey MD [STAFF PHYSICIAN] - 10/19/19 11:15 am Activity/Diet/Wound Care/Special Instructions: Keep wound clean and dry Take meds as directed Follow-up with Dr. Rey in office Weight bear as tolerated May shower in 3 days if no bleeding Discharge Disposition: TRANSFER TO SNF/ECF
--- NOTE | 2019-10-14 11:57 | P.PN ---
Subjective Progress Note Date: 10/14/19 Sandra Nichole, is an 78-year-old female well known to my practice who was admitted by Dr. Mauro Rey and underwent right total knee arthroplasty due to advanced osteoarthritis that failed conservative management. Consultation was requested for management while hospitalized. Patient was seen and examined postoperatively, she was having nausea and vomiting, patient relates to taking [place] as a cause of her nausea and vomiting, she is having [id number] pain in her right knee area, otherwise she denies any complaints, there is no fever or chills no headache or dizziness no chest pain no shortness of breath no cough, no abdominal pain no blood in the stools no burning was urination no frequency or urgency no hematuria. Patient has a known history of hypertension, hypothyroidism, gastroesophageal reflux disease, and history of osteoarthritis and osteoporosis. On 10/09/2019 patient was seen and examined on the medical floor she is alert and oriented 3 in no apparent distress, she is complaining of nausea and vomiting, she is complaining of pain in the lower extremity otherwise she denies any complaints there is no fever or chills no headache or dizziness no chest pain no shortness of breath no cough no abdominal pain, no burning with urination no frequency or urgency and no hematuria, at this time will discontinue all hydromorphone and hydrocodone products, continue with pain management with morphine only, continue with Zofran and add Reglan for management of nausea and vomiting On 10/10/2019 patient was seen and examined on the medical floor she is alert and oriented 3 in no apparent distress nausea and vomiting has improved significantly, sodium is very low at 122 likely related to vomiting, at this time will change IV fluid to normal saline at 50 mL an hour, otherwise patient denies any complaint at this time there is no fever or chills no headache or dizziness no chest pain no shortness of breath no cough no nausea or vomiting no abdominal pain no diarrhea no burning with urination no frequency or urgency and no hematuria. At this time patient seems to be able to tolerate morphine well, but is and able to tolerate any hydrocodone products, will start patient on morphine extended release 15 mg twice daily. On 10/11/2019 patient was seen and examined on the medical floor she is alert and oriented 3 in no apparent distress there is no fever or chills no headache or dizziness no chest pain no shortness of breath no cough no nausea or vomiting no abdominal pain no diarrhea no burning with urination no frequency or urgency no hematuria. Pain is well-controlled, however patient is feeling tired because of morphine, at this time will change morphine ER 15 mg once daily at bedtime, continue using Tylenol during the day, sodium is low at 121, will increase normal saline to 100 mL/h, patient advised to decrease free water intake, physical therapy and occupational therapy consulted, patient may need to go to rehab after this admission, Lovenox 40 mg subcu daily@ On 10/12/2019 patient was seen and examined on the medical floor is alert and oriented 3 in no distress there is no fever or chills no headache or dizziness no chest pain no shortness of breath no cough no nausea or vomiting no abdominal pain no diarrhea no burning with urination no frequency or urgency and no hematuria, sodium has improved from 121-128. On 10/13/2019 patient was seen and examined on the medical floor she is alert and oriented 3 in no apparent distress she is able to ambulate better, sodium is up from 128 -129 there is no fever or chills no headache or dizziness no chest pain no shortness of breath no cough no nausea or vomiting no abdominal pain no diarrhea no burning with urination no frequency or urgency no hematuria. On 10/14/2019, patient was seen and examined on the medical floor, she is feeling better she is alert and oriented 3 in no apparent distress, there is no fever or chills no headache or dizziness no chest pain no shortness of breath no cough no nausea or vomiting no abdominal pain no diarrhea, no blood in the stools, no burning was urination no frequency or urgency no hematuria, sodium is still low at 129, continue normal saline at 100 mL an hour, discontinue trimethoprim Objective - Vital Signs Vital signs: Vital Signs Temp 97.9 F 10/14/19 07:00 Pulse 77 10/14/19 07:00 Resp 17 10/14/19 07:00 BP 167/79 10/14/19 07:00 Pulse Ox 96 10/14/19 07:00 Intake & Output 10/13/19 10/14/19 10/14/19 18:59 06:59 18:59 Intake Total 300 Balance 300 Intake: Intake, IV Titration 300 Amount Sodium Chloride 0.9% 1, 300 000 ml @ 100 mls/hr IV . Q10H [facility] Rx#:[id number] Other: Voiding Method Incontinent Incontinent Incontinent # Voids 1 2 - Exam In general patient is alert and oriented 3 in no apparent distress HEENT head normocephalic and atraumatic Neck is supple no JVD no goiter no lymphadenopathy Chest exam reveals a few scattered crackles no wheezing Cardiac exam reveals regular heart sounds S1 and S2 no gallops no murmurs Abdomen is soft nontender no organomegaly with normal bowel sounds Extremity exam reveals no edema no cyanosis or clubbing Neurological examination reveals no gross focal deficits - Labs CBC & Chem 7: 10/14/19 06:32 10/14/19 06:32 Labs: Abnormal Lab Results - Last 24 Hours (Table) 10/14/19 10/14/19 Range/Units 06:32 06:32 Lymphocytes # 0.8 L (1.0-4.8) k/uL Sodium 129 L (137-145) mmol/L Chloride 97 L (98-107) mmol/L Creatinine 0.42 L (0.52-1.04) mg/dL Glucose 103 H (74-99) mg/dL Calcium 8.2 L (8.4-10.2) mg/dL ALT 44 H (4-34) U/L Total Protein 5.9 L (6.3-8.2) g/dL Albumin 3.4 L (3.5-5.0) g/dL Assessment and Plan Plan: 1. Advanced osteoarthritis, status post right total knee arthroplasty. DVT prophylaxis as per orthopedic protocol 2. For pain management patient has an ALLERGY to codeine, advised to avoid [place] and use morphine if needed for pain management 3. Underlying history of hypertension well-controlled on medications 4. Underlying history of hyperlipidemia 5. Underlying history of hypothyroidism 6. Nausea and vomiting, likely related to using [place] and dilaudid, at this time continue using morphine only, continue Zofran and add Reglan for management of nausea and vomiting 7. Severe hyponatremia likely related to vomiting, improving with IV normal saline Home medications reviewed and reordered Will follow during this admission for medical management Patient improving gradually possible transfer to the detention in the next 1- 2 days
[2019-10-14] MEDS: MORPHINE SULFATE ER 15 MG TABLET PO SCH (19:54)
[2019-10-14] MEDS: SENNOSIDES-DOCUSATE SODIUM 1 EACH TAB PO SCH (19:54)
[2019-10-15] MEDS: traMADol 50 MG TAB PO PRN ×3 (01:43→13:51)
[2019-10-15] MEDS: SODIUM CHLORIDE 0.9% 1,000 ML IV SCH ×2 (01:43→11:55)
[2019-10-15 02:13] VITALS: RESP 16
[2019-10-15] MEDS: LEVOTHYROXINE 25 MCG TAB PO SCH (05:44)
[2019-10-15] MEDS: CHOLECALCIFEROL 1,000 UNIT TAB PO SCH (08:18)
[2019-10-15] MEDS: amLODIPine 5 MG TAB PO SCH (08:18)
[2019-10-15] MEDS: PANTOPRAZOLE 40 MG TABLET PO SCH (08:18)
[2019-10-15] MEDS: ASPIRIN 81 MG PO SCH (08:18)
[2019-10-15] MEDS: METOPROLOL SUCCINATE (ER) 25 MG TAB.ER.24H PO SCH (08:18)
[2019-10-15] MEDS: EZETIMIBE 10 MG TAB PO SCH (08:25)
[2019-10-15] MEDS: ENOXAPARIN 40 MG/0.4 ML SYRINGE SQ SCH (08:27)
[2019-10-15 09:31] LABS: African American GFR (CKD) >90 (>60 ml/min/1.73 sqM); Anion Gap 7 mmol/L; Blood Urea Nitrogen 8 mg/dL (7-17); Calcium 8.6 mg/dL (8.4-10.2); Carbon Dioxide 28 mmol/L (22-30); Chloride 94 mmol/L (98-107); Glucose 158 mg/dL (74-99); Non-African American GFR(CKD) >90 (>60 ml/min/1.73 sqM); Potassium 3.7 mmol/L (3.5-5.1); Sodium 129 mmol/L (137-145)
[2019-10-15] MEDS: MORPHINE SULFATE 2 MG/ML SYRINGE IVP PRN (10:13)
[2019-10-15] MEDS: MULTIVITAMINS, THERA 1 EACH TAB PO SCH (11:55)
--- NOTE | 2019-10-15 13:33 | P.PN ---
Subjective Progress Note Date: 10/15/19 Sandra Nichole, is an 78-year-old female well known to my practice who was admitted by Dr. Mauro Rey and underwent right total knee arthroplasty due to advanced osteoarthritis that failed conservative management. Consultation was requested for management while hospitalized. Patient was seen and examined postoperatively, she was having nausea and vomiting, patient relates to taking [place] as a cause of her nausea and vomiting, she is having [id number] pain in her right knee area, otherwise she denies any complaints, there is no fever or chills no headache or dizziness no chest pain no shortness of breath no cough, no abdominal pain no blood in the stools no burning was urination no frequency or urgency no hematuria. Patient has a known history of hypertension, hypothyroidism, gastroesophageal reflux disease, and history of osteoarthritis and osteoporosis. On 10/09/2019 patient was seen and examined on the medical floor she is alert and oriented 3 in no apparent distress, she is complaining of nausea and vomiting, she is complaining of pain in the lower extremity otherwise she denies any complaints there is no fever or chills no headache or dizziness no chest pain no shortness of breath no cough no abdominal pain, no burning with urination no frequency or urgency and no hematuria, at this time will discontinue all hydromorphone and hydrocodone products, continue with pain management with morphine only, continue with Zofran and add Reglan for management of nausea and vomiting On 10/10/2019 patient was seen and examined on the medical floor she is alert and oriented 3 in no apparent distress nausea and vomiting has improved significantly, sodium is very low at 122 likely related to vomiting, at this time will change IV fluid to normal saline at 50 mL an hour, otherwise patient denies any complaint at this time there is no fever or chills no headache or dizziness no chest pain no shortness of breath no cough no nausea or vomiting no abdominal pain no diarrhea no burning with urination no frequency or urgency and no hematuria. At this time patient seems to be able to tolerate morphine well, but is and able to tolerate any hydrocodone products, will start patient on morphine extended release 15 mg twice daily. On 10/11/2019 patient was seen and examined on the medical floor she is alert and oriented 3 in no apparent distress there is no fever or chills no headache or dizziness no chest pain no shortness of breath no cough no nausea or vomiting no abdominal pain no diarrhea no burning with urination no frequency or urgency no hematuria. Pain is well-controlled, however patient is feeling tired because of morphine, at this time will change morphine ER 15 mg once daily at bedtime, continue using Tylenol during the day, sodium is low at 121, will increase normal saline to 100 mL/h, patient advised to decrease free water intake, physical therapy and occupational therapy consulted, patient may need to go to rehab after this admission, Lovenox 40 mg subcu daily@ On 10/12/2019 patient was seen and examined on the medical floor is alert and oriented 3 in no distress there is no fever or chills no headache or dizziness no chest pain no shortness of breath no cough no nausea or vomiting no abdominal pain no diarrhea no burning with urination no frequency or urgency and no hematuria, sodium has improved from 121-128. On 10/13/2019 patient was seen and examined on the medical floor she is alert and oriented 3 in no apparent distress she is able to ambulate better, sodium is up from 128 -129 there is no fever or chills no headache or dizziness no chest pain no shortness of breath no cough no nausea or vomiting no abdominal pain no diarrhea no burning with urination no frequency or urgency no hematuria. On 10/14/2019, patient was seen and examined on the medical floor, she is feeling better she is alert and oriented 3 in no apparent distress, there is no fever or chills no headache or dizziness no chest pain no shortness of breath no cough no nausea or vomiting no abdominal pain no diarrhea, no blood in the stools, no burning was urination no frequency or urgency no hematuria, sodium is still low at 129, continue normal saline at 100 mL an hour, discontinue trimethoprim On 10/15/2019 patient was seen and examined on the medical floor, she is alert and oriented 3 in no apparent distress, sodium is still at 129, she is re ceiving IV fluid normal saline at 100 mL an hour, trimethoprim was discontinued yesterday, patient is feeling well and denying any complaints at this time, she is ready to be transferred to [facility] for rehab, will monitor sodium at [facility], and patient was instructed to decrease free water intake. Clinically patient stated that pain in the knee is well-controlled, there is no fever or chills no headache or dizziness no chest pain no shortness of breath no cough no nausea or vomiting no abdominal pain no diarrhea no burning with urination no frequency or urgency and no hematuria Objective - Vital Signs Vital signs: Vital Signs Temp 98.1 F 10/15/19 06:50 Pulse 83 10/15/19 08:48 Resp 16 10/15/19 08:48 BP 170/65 10/15/19 06:50 Pulse Ox 93 L 10/15/19 06:50 Intake & Output 10/14/19 10/15/19 10/15/19 18:59 06:59 18:59 Intake Total 800 825 Balance 800 825 Intake: Intake, IV Titration 800 600 Amount Sodium Chloride 0.9% 1, 800 600 000 ml @ 100 mls/hr IV . Q10H [facility] Rx#:[id number] Oral 225 Other: Voiding Method Incontinent Incontinent Incontinent # Voids 1 3 2 # Bowel Movements 1 - Exam In general patient is alert and oriented 3 in no apparent distress HEENT head normocephalic and atraumatic Neck is supple no JVD no goiter no lymphadenopathy Chest exam reveals a few scattered crackles no wheezing Cardiac exam reveals regular heart sounds S1 and S2 no gallops no murmurs Abdomen is soft nontender no organomegaly with normal bowel sounds Extremity exam reveals no edema no cyanosis or clubbing Neurological examination reveals no gross focal deficits - Labs CBC & Chem 7: 10/14/19 06:32 10/15/19 08:59 Labs: Abnormal Lab Results - Last 24 Hours (Table) 10/15/19 Range/Units 08:59 Sodium 129 L (137-145) mmol/L Chloride 94 L (98-107) mmol/L Creatinine 0.43 L (0.52-1.04) mg/dL Glucose 158 H (74-99) mg/dL Assessment and Plan Plan: 1. Advanced osteoarthritis, status post right total knee arthroplasty. DVT prophylaxis as per orthopedic protocol 2. For pain management patient has an ALLERGY to codeine, advised to avoid [place] and use morphine if needed for pain management 3. Underlying history of hypertension well-controlled on medications 4. Underlying history of hyperlipidemia 5. Underlying history of hypothyroidism 6. Nausea and vomiting, likely related to using [place] and dilaudid, at this time continue using morphine only, continue Zofran and add Reglan for management of nausea and vomiting 7. Severe hyponatremia likely related to vomiting, improving with IV normal saline Home medications reviewed and reordered Will follow during this admission for medical management Patient improving gradually possible transfer to the retirement in the next 1- 2 days
--- NOTE | 2019-10-15 15:39 | P.PN ---
Subjective Progress Note Date: 10/15/19 Principal diagnosis: Right TKA Patient is seen at bedside this morning. She is POD# 6 from right total knee arthroplasty. She has pain at the surgical site as expected but denies any new complaints. She has been slow with being able to walk. Her pain is improving. She denies numbness, tingling or calf pain. Review of systems is negative for fever, chills, chest pain, shortness of breath or other Objective - Vital Signs Vital signs: Vital Signs Temp 98.1 F 10/15/19 06:50 Pulse 83 10/15/19 08:48 Resp 16 10/15/19 08:48 BP 170/65 10/15/19 06:50 Pulse Ox 93 L 10/15/19 06:50 Intake & Output 10/14/19 10/15/19 10/15/19 18:59 06:59 18:59 Intake Total 800 825 Balance 800 825 Intake: Intake, IV Titration 800 600 Amount Sodium Chloride 0.9% 1, 800 600 000 ml @ 100 mls/hr IV . Q10H [facility] Rx#:[id number] Oral 225 Other: Voiding Method Incontinent Incontinent Incontinent # Voids 1 3 2 # Bowel Movements 1 - Exam Inspection reveals a benign surgical wound. There is no active bleeding or drainage. Neurovascular status is intact throughout the lower extremity with motor and sensation fully intact. Calf is soft and nontender. 2+ dorsalis pedis pulse and less than 2 second cap refill is present. - Constitutional General appearance: Present: no acute distress - Labs CBC & Chem 7: 10/14/19 06:32 10/15/19 08:59 Labs: Abnormal Lab Results - Last 24 Hours (Table) 10/15/19 Range/Units 08:59 Sodium 129 L (137-145) mmol/L Chloride 94 L (98-107) mmol/L Creatinine 0.43 L (0.52-1.04) mg/dL Glucose 158 H (74-99) mg/dL Assessment and Plan (1) S/P total knee arthroplasty Narrative/Plan: She will continue with routine postop orthopedic protocol including pain management, wound care, PT, DVT prophylaxis and medical management. Expect that she will transfer to home or ECF within next 1-2 days when ok with IM Current Visit: Yes Status: Acute Priority: Medium Code(s): Z96.659 - VA ESENCE OF UNSPECIFIED ARTIFICIAL KNEE JOINT SNOMED Code(s): 9154182695083 Time with Patient: Less than 30
[2019-10-15 15:40] VITALS: BP 157/78; PULSE 66; TEMP 98.5
--- NOTE | 2019-10-16 12:21 | CDI ---
Documentation Clarification Form Date: 10/16/19 From: Malou Horne CCS Phone: If you have a question about this query, please contact Lisandra Cartwright, [employer] Rep[employer] Technician at [phone] between 8am and 5pm. Admit Date: 10/10/19 Discharge Date:10/15/19 Patient Name: Sandra Nichole Visit Number: [id number] ATTENTION: The Clinical Documentation Specialists (CDI) and [facility] Coding Staff appreciate your assistance in clarifying documentation. Please respond to the clarification below the line at the bottom and electronically sign. The CDI & [facility] Coding staff will review the response and follow-up if needed. Please note: Queries are made part of the Legal Health Record. If you have any questions, please contact the author of this message via ITS. Dear Dr. Rey, The patients principal diagnosis has not been clearly identified and requires clarification. Patient presented with right knee osteoarthrosis with Outpatient status. Patient was admitted to Observation status on 10/08 and to Inpatient status on 10/09. PN dated 10/09 documents: She has ambulated some physical therapy and nursing states patient needs encouragement to get out of bed and increase mobilization.Patient does not feel stable or ready for discharge home today.Patient is also found to have hyponatremia with a sodium level currently at 122. History/Risk factors: HTN, DJD, Hypothyroid, N/V, Hyponatremia Clinical Indicators: N/V, Hyponatremia, Patient unstable, D/C to SNF Lab findings: Sodium - 122, 121, 128 Treatment: Sodium chloride 0.9% 1000 ml IV Other tx: PT to increase mobility and ambulation In your professional opinion, can you please clarify which diagnosis, after study, was the reason chiefly responsible for the admission from Observation to Inpatient status? Patient was unstable for discharge due to surgery Post operative pain Nausea and vomiting Hyponatremia post operative pain and hyponatremia MTDD
== END 2019-10-15 16:38 | DRG 981 ==
LOC: OR 05:33 → 4SSUR 09:18 → OR 10-09 11:30 → 4SSUR 10-09 11:30 → OBSVTOIN 10-10 09:04
PROVIDERS: ADMIT Orthopaedic Surgery Sports Medicine; ATTEND Orthopaedic Surgery Sports Medicine
PROC: 0SRC069 Replacement of Right Knee Joint with Oxidized Zirconium on Polyethylene Synthetic Substitute, Cemented, Open Approach (ICD-10-PCS; principal; 2019-10-08 07:00)
DX: E87.1 Hypo-osmolality and hyponatremia (principal); K57.91 Diverticulosis of intestine, part unspecified, without perforation or abscess with bleeding; M81.0 Age-related osteoporosis without current pathological fracture; M17.11 Unilateral primary osteoarthritis, right knee; I10 Essential (primary) hypertension; E03.9 Hypothyroidism, unspecified; K21.9 Gastro-esophageal reflux disease without esophagitis; R11.2 Nausea with vomiting, unspecified; E78.5 Hyperlipidemia, unspecified; G89.18 Other acute postprocedural pain; R32 Unspecified urinary incontinence; T40.2X5A Adverse effect of other opioids, initial encounter; Z79.899 Other long term (current) drug therapy; Z79.890 Hormone replacement therapy; Z79.1 Long term (current) use of non-steroidal anti-inflammatories (NSAID); Z87.440 Personal history of urinary (tract) infections; Z90.710 Acquired absence of both cervix and uterus; Z96.652 Presence of left artificial knee joint; Z98.1 Arthrodesis status; Z98.890 Other specified postprocedural states; Z98.42 Cataract extraction status, left eye; Z98.41 Cataract extraction status, right eye; Z87.891 Personal history of nicotine dependence; Z91.048 Other nonmedicinal substance allergy status; Z88.5 Allergy status to narcotic agent; Z88.2 Allergy status to sulfonamides; Z82.5 Family history of asthma and other chronic lower respiratory diseases; Z82.49 Family history of ischemic heart disease and other diseases of the circulatory system; Z83.3 Family history of diabetes mellitus
CPT/HCPCS: 64448; 76942; 80048; 80053; 85025; 88300

== ENCOUNTER → 2020-02-11 | Outpatient (CLI) | payer MEDICARE, BC ==
[~2020-02-11] MED LIST changes: -ACETAMINOPHEN TAB 500 MG TAB PO ONE; +DENOSUMAB 60 MG/ML 1 ML SYRINGE SQ NR; -GABAPENTIN 300 MG CAP PO ONE; -MELOXICAM 7.5 MG TAB PO ONE; -ONDANSETRON 4 MG/2 ML VIAL IVP ONE; -TRANEXAMIC ACID 1,000 MG in SODIUM CHLORIDE 0.9% 100 ML IVPB ONE
[2020-02-11 11:07] VITALS: BP 135/92; PULSE 82; RESP 16; TEMP 97.6
== END | disposition home or self-care (01) ==
LOC: PROCWHC3 10:44
PROVIDERS: ATTEND Internal Medicine
DX: M81.0 Age-related osteoporosis without current pathological fracture (principal)
CPT/HCPCS: 96372; J0897

== ENCOUNTER → 2020-08-15 | Outpatient (CLI) | payer MEDICARE, BC ==
[2020-08-15 10:53] VITALS: BP 151/80; PULSE 95; RESP 18; TEMP 98.1
--- NOTE | 2020-08-15 11:11 | P.PAINCN ---
History of Present Illness - Reason for Consult Consult date: 08/15/20 - History of Present Illness This is 79 years old female with a chronic history of severe low back pain, diagnosed with lumbar spinal stenosis and lumbar degenerative disc disease, lumbar spondylosis with lumbar facet arthropathy, patient was treated previously by Dr. Bush and Dr. Harper, and she had RFA of the medial branch lumbar area, and she got excellent pain relief, (RFA was done in August 2018 ) currently she is complaining of severe low back pain, with radiation to the buttock area bilaterally, denies any motor or sensory deficit she denies any fever or night sweats she denies any change in bowel movement or urination Past Medical History Past Medical History: Eye Disorder, GI Bleed, Hyperlipidemia, Hypertension, Osteoarthritis (OA), Thyroid Disorder Additional Past Medical History / Comment(s): HX OF DIVERTICULAR BLEED, states had 5 transfusions, bleed "caused by pain medication use" NOT ABLE TO FULLY BEND LEFT KNEE. urinary frequency, osteoporosis. 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 Steroid injection left knee. fernandez cataract surgery, colonoscopy. Has had epidurals for pain, and "nerve burning" Past Anesthesia/Blood Transfusion Reactions: No Reported Reaction Additional Past Anesthesia/Blood Transfusion Reaction / Comm: no problem with transfusions Past Psychological History: No Psychological Hx Reported Smoking Status: Former smoker Past Alcohol Use History: Occasional Additional Past Alcohol Use History / Comment(s): QUIT SMOKING 2006, STARTED AT AGE 34 (1974) SMOKED 1PPD ON AVERAGE. Past Drug Use History: None Reported Additional Drug Use History / Comment(s): CBD lotion use - Past Family History Mother Additional Family Medical History / Comment(s): Cerebral hemorrhage at age 51. Father Additional Family Medical History / Comment(s): Emphysema. Medications and Allergies Home Medications Medication Instructions Recorded Confirmed Type Cholecalciferol [Vitamin D3 (25 2,000 units PO DAILY 05/03/15 08/15/20 History Mcg = 1000 Iu)] Omeprazole 20 mg PO QAM 03/10/17 08/15/20 History Ezetimibe [Zetia] 10 mg PO DAILY 10/01/19 08/15/20 History Levothyroxine Sodium 25 mcg PO DAILY 10/01/19 08/15/20 History Metoprolol Succinate (ER) [Toprol 25 mg PO DAILY 10/01/19 08/15/20 History XL] amLODIPine [Norvasc] 5 mg PO DAILY tab 10/15/19 08/15/20 Rx diazePAM [Valium] 2.5 mg PO Q8HR PRN tab 10/15/19 08/15/20 Rx Aspirin [Adult Low Dose Aspirin EC] 81 mg PO DAILY 08/11/20 08/15/20 History Tolterodine ER [Detrol LA] 2 mg PO DAILY 08/11/20 08/15/20 History Trimethoprim [Trimpex] 100 mg PO DAILY 08/11/20 08/15/20 History Allergies Allergy/AdvReac Type Severity Reaction Status Date / Time nickel Allergy Rash/Hives Verified 08/11/20 13:13 Sulfa (Sulfonamide Allergy Rash/Hives Verified 08/11/20 13:13 Antibiotics) codeine AdvReac Nausea & Verified 08/11/20 13:13 Vomiting Physical Exam Vitals: Vital Signs Temp Pulse Resp BP Pulse Ox 08/15/20 10:48 98.1 F 95 18 151/80 97 Physical Examinations : -Constitutiona : Cooperative , not in acute distress . -HEENT : nech : supple , no Lymphadenopathy , normal thyroid size . : eyes : no ptosis , no icterus, no photophobia . - neurologic : Cranial nerve II to XII intact , no focal neurological deffecit . -psychatric : alert , oriented X 3 , appropriate affect , intact judgment and insight . -Lymphatic : no Lymphadenopathy . - musculoskeltal : Lumber spine moter stegnth lower extremities ,thigh and legs 5/5 Right side , 5/5 Left side deep tendon reflexes : normal Knee Jerk , normal ankle Jerk lumber facet Loading Test =positive Right , positive Left Range of motion of the lumbar spine Flexion 30 degrees, extension 10 degrees strait leg raising test = positive at 45 degree Fabere test= positive Right , and positive LT . Sever tenderness over the Sacroiliac joint on the Right , and Left sides Gaenslen test= positive right ,and positive left . Seated flexion test= positive right ,and positive Left . Distraction test= positive bilaterally Results Comments: MRI of the lumbar spine= lumbar spinal stenosis (mild ),Lumbar degenerative disc disease, lumbar spondylosis with lumbar facet arthropathy Assessment and Plan Plan: Assessment and plan=1-lumbar spinal stenosis 2-Lumbar degenerative disc disease. 4-lumbar spondylosis with lumbar facet arthropath y. Patient had excellent pain relief after RFA of the medial branch lumbar area done August 2018 Description could benefit from repeat RFA of the medial branch lumbar area at L3 , L4 , l5 bilaterally Time with Patient: Greater than 30 PQRS Measure Charge Sheet Measure #130: Documentation of Current Meds in Medical Chart: Patient's medications documented in chart Measure #226: Tobacco Use: Screen & Cessation Intervention: Pt not a tobacco user Measure #111: Pneumonia Vaccination: Pneumococcal vaccine administered or previously received Measure #47: Advance Care Plan: Advance care planning discussed & documented, pt chose/unable to give Measure #412: Opioid Treatment Agreement: No documentation of signed opioid treatment agreement Measure #408: Opioid Therapy Follow-up Evaluation: Patient had NO f/u eval minimum every 3 months during opioid therapy Measure #317: Preventitive Care & Scrn High Bld Press & F/U: Pre-hypertensive or hypertensive BP documented, pt will f/u with PCP Measure #128: Body Mass Index (BMI) Screening & Follow-up: BMI documented ABOVE normal parameters - f/u documented Measure #131: Pain Assessment & Follow-up: Pain positive & plan documented, Follow-up scheduled Measure #431: Unhealthy Alcohol Use Preventative Care & Scrn: Patient not identified as an unhealthy alcohol user PQRS Narrative: Smoking Status Former smoker Blood Pressure 151/80 Pain Intensity [Back] 5 Scale Used Numeric (1 - 10) Home Medications: Ambulatory Orders Cholecalciferol [Vitamin D3 (25 Mcg = 1000 Iu)] 2,000 units PO DAILY 05/03/15 Omeprazole 20 mg PO QAM 03/10/17 Ezetimibe [Zetia] 10 mg PO DAILY 10/01/19 Levothyroxine Sodium 25 mcg PO DAILY 10/01/19 Metoprolol Succinate (ER) [Toprol XL] 25 mg PO DAILY 10/01/19 amLODIPine [Norvasc] 5 mg PO DAILY tab 10/15/19 diazePAM [Valium] 2.5 mg PO Q8HR PRN tab 10/15/19 Aspirin [Adult Low Dose Aspirin EC] 81 mg PO DAILY 08/11/20 Tolterodine ER [Detrol LA] 2 mg PO DAILY 08/11/20 Trimethoprim [Trimpex] 100 mg PO DAILY 08/11/20
== END ==
LOC: PNWHC3 10:33
PROVIDERS: ATTEND Specialist
DX: M48.061 Spinal stenosis, lumbar region without neurogenic claudication (principal); M51.36 Other intervertebral disc degeneration, lumbar region; M47.816 Spondylosis without myelopathy or radiculopathy, lumbar region; E78.5 Hyperlipidemia, unspecified; I10 Essential (primary) hypertension; M19.90 Unspecified osteoarthritis, unspecified site; Z87.891 Personal history of nicotine dependence; Z79.82 Long term (current) use of aspirin; Z88.5 Allergy status to narcotic agent; Z88.2 Allergy status to sulfonamides; Z91.048 Other nonmedicinal substance allergy status
CPT/HCPCS: 99211

== ENCOUNTER 2020-09-09 10:41 | Day surgery (SDC) | payer MEDICARE, BC ==
[2020-09-08 10:07] VITALS: BMI 26.6
[~2020-09-09 10:41] MED LIST changes: -DENOSUMAB 60 MG/ML 1 ML SYRINGE SQ NR; +LACTATED RINGERS 1,000 ML IV SCH
[2020-09-09] MEDS ORDERED: LACTATED RINGERS 1,000 ML IV ONE (12:05)
[2020-09-09 12:07] VITALS: TEMP 96.9
[2020-09-09] MEDS ORDERED: TRIAMCINOLONE ACETONIDE 40 MG/ML 1 ML VIAL ONE (13:06)
[2020-09-09] MEDS ORDERED: fentaNYL (PF) 50 MCG/ML 2 ML AMP ONE (13:06)
[2020-09-09] MEDS ORDERED: MIDAZOLAM 2 MG/2 ML VIAL ONE (13:06)
[2020-09-09] MEDS ORDERED: ROPIVACAINE 5MG/ML 20ML VIAL ONE (13:06)
--- NOTE | 2020-09-09 13:36 | P.PCN ---
Date of Procedure: 09/09/20 Procedure(s) Performed: PREOPERATIVE DIAGNOSIS: 1-Lumbar Spondylosis with Facet Arthropathy without myelopathy. 2- Lumber degenerative disc disease. POSTOPERATIVE DIAGNOSIS: 1- Lumbar Spondylosis with Facet Arthropathy without myelopathy. 2- Lumber degenerative disc disease. PROCEDURES : Bilateral Radiofrequency thermocoagulation, L3 , L4 , and L5 medial branch, with fluoroscopic guidance (fluoroscopy images available in the radiology department) ( to denervate the facet joint at L4-5 ,and L5-S1 levels ). ANESTHESIA: Monitered anesthesia care as per anesthesia department. EBL: Minimal PROCEDURE INDICATION: The patient with low back pain secondary to lumbar facet arthropathy who had more than 50% relief of her pain with previous diagnostic lumbar medial branch block with bupivacaine. PROCEDURE DESCRIPTION / TECHNIQUE: The patient was seen and identified in the preoperative area. Risks, benefits, complications, including but not limited to risk of infection ,bleeding , allergic reactions to the medications and no complete pain releife , and alternatives were discussed with the patient, the patient agreed to proceed with the procedure and signed the consent. IV was started. Vital signs remained stable throughout the procedure. Patient was taken to the OR and time out was completed. The patient was placed in the prone position on the procedure table. The lumber area was prepped and draped in the usual sterile fashion. . Vital signs were closely monitored during the procedure .IV sedation was used during the procedure to decrease patients anxiety. Using AP and then oblique fluoroscopy, the ``eye of the Earl dog corresponding to the connection between the superior and transverse articular processes of right L3, L4, and L5 were identified, marked, and localized with 1% lidocaine. Subsequently, a 18 [id number] radiofrequency cannula with a 10- mm active tip was advanced guided by fluoroscopy to each of the``eyes of the Earl dog at right L3, L4, and L5. Each site then underwent sensory testing at 50 Hz and 0 to 1 volt and motor testing at 2.5 Hz and 0 to 3 volt with local stimulation, but no radicular symptoms down the legs. Thereafter each sites underwent radiofrequency thermocoagulation at 80 degrees celsius for 90 seconds after injecting 0.5 ml of PF Ropivacaine 1ml, then after the thermocoagulation done , 1 ml of the block solution containing Kenalog 20 mg and 3 ml of Ropivacaine 0.5% was injected at the right L3 , L4 , and L5 , levels after negative aspiration of CSF and blood and with no paresthesias. Cannulas were retracted while injecting lidocaine 1% until the needle is out. The same procedure was repeated at the level of Left L3, L4, and L5 levels. At the end of the procedure, the skin was cleansed and bandages were applied. COMPLICATIONS: No acute complications. DISPOSITION / PLANS: The patient was placed in a supine position and transferred to the recovery area in a stable condition for observation and was discharged from the recovery room after meeting discharge criteria. Home discharge instructions given to the patient by the staff. The patient was reexamined prior to discharge. The patient will schedule a follow up in the clinic in 2-4 weeks.
[2020-09-09] MEDS ORDERED: IV FLUID CONTINUATION 1,000 ML IV ONE (13:38)
[2020-09-09 14:11] VITALS: BP 150/72; PULSE 64; RESP 20
--- NOTE | 2020-09-12 03:41 | FL ---
EXAMINATION TYPE: FL guided pain mgmt statistic DATE OF EXAM: 09/09/2020 FLUOROSCOPY Fluoroscopy time of 22 seconds was used during lumbar radiofrequency ablation. 6 image/s document/s the procedure.
== END 2020-09-09 14:11 | disposition home or self-care (01) ==
LOC: ORPAIN 10:41
PROVIDERS: ATTEND Specialist
DX: M54.5 Low back pain (principal); I10 Essential (primary) hypertension; E78.5 Hyperlipidemia, unspecified; E07.9 Disorder of thyroid, unspecified; M19.90 Unspecified osteoarthritis, unspecified site; K21.9 Gastro-esophageal reflux disease without esophagitis; Z79.899 Other long term (current) drug therapy; Z79.82 Long term (current) use of aspirin; Z88.5 Allergy status to narcotic agent; Z88.2 Allergy status to sulfonamides; Z91.048 Other nonmedicinal substance allergy status
CPT/HCPCS: 64635; 64636; J2250; J3301; J3010; J2795

== ENCOUNTER → 2020-09-12 | Outpatient (CLI) | payer MEDICARE, BC ==
--- NOTE | 2020-09-12 10:44 | MR ---
EXAMINATION TYPE: MR cervical spine wo/w con DATE OF EXAM: 09/12/2020 COMPARISON: HISTORY: Status post fusion C3-C7, Cervicalgia, Strain TECHNIQUE: Multiplanar, multisequence images of the cervical spine were acquired utilizing 6.5 mL intravenous Ga davist gadolinium contrast. Diffusion weighted imaging was performed. No abnormal enhancement following contrast administration. Cervical segments are stable. There is normal alignment. Cervical spinal cord is of normal signal. Craniovertebral junction relationships are within normal limits. Prior fusion changes are again not ed at C3-C7, there is susceptibility artifact noted in the posterior soft tissues due to hardware. Th ere is no significant spinal stenosis. No significant foraminal encroachment. No evident disc herniat ion. IMPRESSION: Stable exam. Postop changes. No disc herniation or spinal stenosis.
== END | disposition home or self-care (01) ==
LOC: RADMRIMAIN 07:04
PROVIDERS: ATTEND Orthopaedic Surgery Orthopaedic Surgery of the Spine
DX: M54.2 Cervicalgia (principal); Z98.1 Arthrodesis status
CPT/HCPCS: 72156; A9585

== ENCOUNTER → 2020-09-27 | Outpatient (CLI) | payer MEDICARE, BC ==
[~2020-09-27] MED LIST changes: +DENOSUMAB 60 MG/ML 1 ML SYRINGE SQ NR; -LACTATED RINGERS 1,000 ML IV SCH
[2020-09-27 10:29] VITALS: BP 148/82; PULSE 57; RESP 16; TEMP 98.2
== END ==
LOC: PROCWHC3 10:05
PROVIDERS: ATTEND Internal Medicine
DX: M81.0 Age-related osteoporosis without current pathological fracture (principal); Z87.891 Personal history of nicotine dependence; Z88.2 Allergy status to sulfonamides; Z88.5 Allergy status to narcotic agent; Z88.9 Allergy status to unspecified drugs, medicaments and biological substances
CPT/HCPCS: 96372; J0897

== ENCOUNTER → 2020-09-28 | Outpatient (CLI) | payer MEDICARE, BC ==
--- NOTE | 2020-09-28 16:17 | CT ---
EXAMINATION TYPE: CT chest w con DATE OF EXAM: 09/28/2020 COMPARISON: 08/28/2017 HISTORY: left lung thickening CT DLP: 498 mGycm, Automated exposure control for dose reduction was used. CONTRAST: Performed injected with 80 mL of Isovue 300. TECHNIQUE: Axial images were obtained at 5 mm thick sections. Reconstructed images are reviewed on [employer] computer in the coronal plane. FINDINGS: Portion of the thyroid visualized is normal. No suspicious lung nodules or focal infiltrates are present. Previous right lower lobe infiltrates rey ve resolved No enlarged mediastinal or hilar adenopathy is evident. The ascending aorta diameter at the level o f the main pulmonary artery is 3.7 cm. The main pulmonary artery diameter at the bifurcation is 2.[address] sections are obtained through the upper abdomen. Abdomen is essentially unremarkable. IMPRESSIONS: 1. No acute pulmonary process. Previous small scattered areas of pneumonitis have resolved over the i nterval.
== END | disposition home or self-care (01) ==
LOC: RADCTMAIN 15:00
PROVIDERS: ATTEND Internal Medicine
DX: R68.89 Other general symptoms and signs (principal)
CPT/HCPCS: 82565; 84520; 71260; 36415; Q9967

== ENCOUNTER → 2020-10-05 | Outpatient (CLI) | payer MEDICARE, BC ==
[2020-10-05 10:17] VITALS: BP 170/80; PULSE 59; RESP 20; TEMP 98.3
--- NOTE | 2020-10-05 10:47 | P.PN ---
Subjective Progress Note Date: 10/05/20 This is a 19 years old female with a chronic history of severe low back pain, is diagnosed with lumbar spondylosis with lumbar facet arthropathy, recently we have an RFA of the medial branch lumbar area patient reported that her low back pain improved significantly currently she is having 0 pain in the low back area, also for pain is in the mid back area and she is diagnosed with thoracic spondylosis, was evaluated by Dr. Bush, he referred her to our pain clinic for evaluation regarding RFA of the thoracic spine, she reported that her mid back pain improved over the last couple of weeks and she having minimal pain in the thoracic area, main problem and this point is severe right upper extremity pain associated with severe numbness interfere with her quality of life, she denies any weakness in her right upper extremity, and had multiple surgical interventions on her cervical spine and she had anterior and posterior fusion, Objective - Vital Signs Vital signs: Vital Signs Temp 98.3 F 10/05/20 10:11 Pulse 59 L 10/05/20 10:11 Resp 20 10/05/20 10:11 BP 170/80 10/05/20 10:11 Pulse Ox 95 10/05/20 10:11 Intake & Output 10/04/20 10/05/20 10/05/20 18:59 06:59 18:59 Weight 63.503 kg - Exam Physical Examinations : -Constitutiona : Cooperative , not in acute distress . -HEENT : nech : supple , no Lymphadenopathy , normal thyroid size . : eyes : no ptosis , no icterus, no photophobia . - neurologic : Cranial nerve II to XII intact , no focal neurological deffecit . -psychatric : alert , oriented X 3 , appropriate affect , intact judgment and insight . -Lymphatic : no Lymphadenopathy . - musculoskeltal : Cervical Spine motor stregnth in the deltoid and biceps, normal right side , normal Left side motor stregnth biceps and the wrist extensors normal right side ,normal left side . motor stregnth in the triceps muscle . normal Right side , normal Left side deep tendon reflexes normal at the biceps , normal at Brachioradialis , normal at triceps. cervical facet loading test: Positive Bilaterally Spurling test= positive Right , positive left. Neck distraction test= positive Right , positive left. Shlomo sign= positive right, positive left . Thoracic spine= 2 facet loading test mid thoracic area from T5 to T7 Lumber spine moter stegnth lower extremities ,thigh and legs 5/5 Right side , 5/5 Left side MRI of the thoracic spine T6 7 left paracentral disc protrusion and thoracic spondylosis and scoliosis Assessment and Plan Plan: Assessment and plan=1-cervical radiculopathy. 2-lumbar spondylosis. 3-thoracic spondylosis. Low back pain improved completely after RFA medial branch lumbar area. Mid back pain improved and patient reported that most of her pain currently in the right upper extremity, and had anterior and posterior fusion, this isn't the best option is to do right-sided transforaminal epidural steroid injection at C7-T1 - PQRS measures = - Patient's medications are documented in the chart. -Tobacco use is negative and counseling.Given. -Patient's has not received pneumococcal vaccine. -Advanced care planning discussed, patient not eligible. -Opiate contract not signed. -Pain positive and follow-up visit/procedure is scheduled. -Patient's blood pressure measured [170/80 ] , and documented in the record ,and patient will follow up with the primary care. -Patient's weight was measured and body mass index [ 26.5 ] above the, normal limits and counseling was done. and patient instructed to follow-up with the primary care physician. -Patient was not identified as an unhealthy alcohol user Time with Patient: Less than 30
== END ==
LOC: PNWHC3 09:49
PROVIDERS: ATTEND Specialist
DX: M47.816 Spondylosis without myelopathy or radiculopathy, lumbar region (principal); M47.814 Spondylosis without myelopathy or radiculopathy, thoracic region; M54.12 Radiculopathy, cervical region; Z88.2 Allergy status to sulfonamides; Z88.5 Allergy status to narcotic agent; Z88.9 Allergy status to unspecified drugs, medicaments and biological substances; Z87.891 Personal history of nicotine dependence
CPT/HCPCS: 99211

== ENCOUNTER → 2020-10-27 | Day surgery (SDC) | payer MEDICARE, BC ==
[2020-10-26 09:33] VITALS: BMI 26.4
[~2020-10-27] MED LIST changes: -DENOSUMAB 60 MG/ML 1 ML SYRINGE SQ NR; +DEXAMETHASONE SOD PHOSPHATE 10 MG/ML 1 ML VIAL ONE; +IOPAMIDOL M200 10 ML VIAL ONE; +IV FLUID CONTINUATION 1,000 ML IV ONE; +LACTATED RINGERS 1,000 ML IV SCH; +MIDAZOLAM 2 MG/2 ML VIAL ONE
[2020-10-27 12:47] VITALS: RESP 16; TEMP 97.7
--- NOTE | 2020-10-27 13:22 | P.PCN ---
Date of Procedure: 10/27/20 Preoperative Diagnosis: Right cervical radiculopathy Postoperative Diagnosis: Same as above Procedure(s) Performed: Attempted transforaminal epidural steroid injection at the C7-T1 on the right side. Surgeon: Loretta Jha Pathology: none sent Condition: stable Disposition: PACU Description of Procedure: The patient was seen in preop holding area she has right cervical radiculopathy with no pain in the upper extremities. He had anterior and posterior cervical fusion. I explained to the patient that we might have technical difficulties due to the hardware . The patient was brought into the procedure room and placed in supine position , the C-arm was tilted to the right oblique position by about 30. Skin was prepped with ChloraPrep and draped in a sterile manner. Lidocaine 1% was used to numb the skin above the entry site. I used 25-gauge 3- 1/2 inch Quincke spinal needle for this procedure. I had some difficulty identifying the C7-T1 level in this position and that's why I changed the patient position to the left lateral decubitus position. After taking multiple views of the cervical spine in this position I decided to abort the procedure due to lack of clear picture of the area. The patient was taken to the PACU after receiving 2 mg of IV Versed during the attempted procedure.
[2020-10-27 13:44] VITALS: BP 151/85; PULSE 62
--- NOTE | 2020-10-27 16:55 | FL ---
EXAMINATION TYPE: FL guided pain mgmt statistic DATE OF EXAM: 10/27/2020 FLUOROSCOPY Fluoroscopy time of 44 seconds was used during right-sided cervical transforaminal steroid injection. 1 image/s document/s the procedure.
== END ==
LOC: ORPAIN 11:36
PROVIDERS: ATTEND Anesthesiology
DX: M54.12 Radiculopathy, cervical region (principal); M47.896 Other spondylosis, lumbar region; M47.894 Other spondylosis, thoracic region
CPT/HCPCS: 64490; 64492; 64483; J2250; J1100; Q9966; 99152

== ENCOUNTER → 2020-11-21 | Outpatient (CLI) | payer MEDICARE, BC ==
[2020-11-21 11:00] VITALS: BP 139/84; PULSE 96; RESP 20; TEMP 98.1
== END | disposition home or self-care (01) ==
LOC: PNWHC3 10:47
PROVIDERS: ATTEND Anesthesiology
DX: M47.896 Other spondylosis, lumbar region (principal); M47.894 Other spondylosis, thoracic region; M54.12 Radiculopathy, cervical region
CPT/HCPCS: 99211

== ENCOUNTER 2020-12-30 09:25 | Day surgery (SDC) | payer MEDICARE, BC ==
[2020-12-29 08:35] VITALS: BMI 26.4
[2020-12-30 09:46] VITALS: TEMP 97.3
[2020-12-30] MEDS ORDERED: LACTATED RINGERS 1,000 ML IV ONE (09:57)
[2020-12-30] MEDS ORDERED: fentaNYL (PF) 50 MCG/ML 2 ML AMP ONE (10:27)
[2020-12-30] MEDS ORDERED: ROPIVACAINE 5MG/ML 20ML VIAL ONE (10:27)
[2020-12-30] MEDS ORDERED: MIDAZOLAM 2 MG/2 ML VIAL ONE (10:27)
[2020-12-30] MEDS ORDERED: TRIAMCINOLONE ACETONIDE 40 MG/ML 1 ML VIAL ONE (10:27)
[2020-12-30] MEDS ORDERED: IV FLUID CONTINUATION 800 ML IV ONE (10:55)
[2020-12-30] MEDS ORDERED: LACTATED RINGERS 1,000 ML IV SCH (10:57)
--- NOTE | 2020-12-30 10:57 | P.PCN ---
Date of Procedure: 12/30/20 Procedure(s) Performed: PREOPERATIVE DIAGNOSIS : 1- Thoracic spondylosis with Facet Arthropathy without myelopathy . POSTOPERATIVE DIAGNOSIS: 1- Thoracic spondylosis with Facet Arthropathy without myelopathy . PROCEDURE: Diagnostic bilateral T6, T7 ,T8 medial branch block under fluoroscopy guidance(fluoroscopy images available in the radiology Department ) ( To target the facet joint between Bilateral T6-7 ,T7-8 ) ANESTHESIA:, monitered anesthesia care . EBL: Minimal COMPLICATION: None PROCEDURE INDICATION: Chronic low back pain secondary to Facet arthropathy unresponsive to conservative treatment. PROCEDURE DESCRIPTION: the patient was seen and identified in the preop holding area , risks and benefits and possible complications of the procedure and alternative were discussed with the patient, and the patient agreed to proceed with the procedure and signed the consent and vital signs monitored during the procedure and fluoroscopy was used to maximize the benefit and accuracy of the needle placement, and sedation was given to decrease patient anxiety, patient was taken to the procedure room and placed in prone position vital signs monitored in the back prepped with chlorhexidine X3 then under strict sterile technique using a right oblique fluoroscopy ,the junction of the transverse process and the superior articulating process of the right T6, T7 ,T8 vertebra which corresponding to the fluoroscopy image of the eye of the Earl dog on the block side for the medial branches and subsequently , after local infiltration of skin and subcu tissuies with Ropivacaine 0.5 % , one mL at each level ,then 25-gauge Quincke-type needles , 3 needle was used , each one of them placed at the junction of the base of the transverse process and the superior articular process at the appropriate level, and the needle was advanced until the periosteum contacted, needle placement confirmed with AP oblique and lateral view and after appropriate needle placement confirmed, and after negative aspiration for heme and CSF and there was no paresthesia 1-1/2 mL of Ropivacaine 0.5% mixed with 20 mg Kenalog , then half mL injected at each level after negative aspiration the needle subsequently removed and the same procedure repeated for the left side at left side at T6, T7 ,T8 levels. At the end of the procedure and the needles removed and a bandage applied after the skin was cleaned the cleaning solution patient taken to recovery room in stable condition and monitors in the recovery room for 20-30 minutes and discharged home in stable condition after discharge criteria met and patient w ill follow up with the pain clinic in 2-4 weeks note = the she was scheduled to have the procedure at T4, T5 ,T6 , during the examination under fluoroscopy guidance insured that the most painful area is on the T6 T7 T8 levels for this reason the procedure was done at T6,T7 ,T8 , hopefully the patient will benefit more and because the insurance approval only 3 levels to be done, for this reason we are targeting the most painful area, to be more beneficial to the patient
[2020-12-30 11:06] VITALS: RESP 16
--- NOTE | 2020-12-30 11:42 | XR ---
EXAMINATION TYPE: XR chest 1V portable DATE OF EXAM: 12/30/2020 COMPARISON: 12/24/2013 INDICATION: Pneumothorax TECHNIQUE: Single frontal view of the chest is obtained. FINDINGS: The heart size is borderline prominent. The pulmonary vasculature is normal. Minimal platelike atelectasis at the right diaphragm. Lungs are otherwise clear. IMPRESSION: 1. Minimal plate atelectasis above the right diaphragm. Lungs otherwise are clear. 2. Borderline cardiomegaly
--- NOTE | 2020-12-30 12:25 | FL ---
Fluoroscopy HISTORY: Pain 29 seconds fluoroscopy time supplied to the referring clinician. 4 intraoperative C-arm images docum ent the procedure. See dictated report from anesthesia.
[2020-12-30 13:09] VITALS: BP 122/77; PULSE 63
== END 2020-12-30 12:03 | disposition home or self-care (01) ==
LOC: ORPAIN 09:25
PROVIDERS: ATTEND Specialist
DX: M47.814 Spondylosis without myelopathy or radiculopathy, thoracic region (principal); G89.29 Other chronic pain; I51.7 Cardiomegaly; I10 Essential (primary) hypertension; M19.90 Unspecified osteoarthritis, unspecified site; J98.11 Atelectasis
CPT/HCPCS: 71045; 64490; 64491; J2250; J3301; J3010; J2795

== ENCOUNTER 2021-02-10 07:22 | Day surgery (SDC) | payer MEDICARE, BC ==
[2021-02-09 08:56] VITALS: BMI 28.3
[~2021-02-10 07:22] MED LIST changes: -DEXAMETHASONE SOD PHOSPHATE 10 MG/ML 1 ML VIAL ONE; -IOPAMIDOL M200 10 ML VIAL ONE; -IV FLUID CONTINUATION 1,000 ML IV ONE; -MIDAZOLAM 2 MG/2 ML VIAL ONE
[2021-02-10 07:47] VITALS: TEMP 97.3
[2021-02-10] MEDS ORDERED: MIDAZOLAM 2 MG/2 ML VIAL ONE (08:11)
[2021-02-10] MEDS ORDERED: methylPREDNISolone ACETATE 40 MG/ML 1 ML VIAL ONE (08:11)
[2021-02-10] MEDS ORDERED: ROPIVACAINE 5MG/ML 20ML VIAL ONE (08:11)
[2021-02-10] MEDS ORDERED: fentaNYL (PF) 50 MCG/ML 2 ML AMP ONE (08:11)
--- NOTE | 2021-02-10 08:30 | P.PCN ---
Date of Procedure: 02/10/21 Procedure(s) Performed: PREOPERATIVE DIAGNOSIS : 1- Thoracic spondylosis with Facet Arthropathy without myelopathy . POSTOPERATIVE DIAGNOSIS: 1- Thoracic spondylosis with Facet Arthropathy without myelopathy . PROCEDURE: Diagnostic bilateral T6, T7 ,T8 medial branch block under fluoroscopy guidance(fluoroscopy images available in the radiology Department ) ( To target the facet joint between Bilateral T6-7 ,T7-8 )# 2nd ANESTHESIA:, monitered anesthesia care . EBL: Minimal COMPLICATION: None PROCEDURE INDICATION: Chronic low back pain secondary to Facet arthropathy unresponsive to conservative treatment. PROCEDURE DESCRIPTION: the patient was seen and identified in the preop holding area , risks and benefits and possible complications of the procedure and alternative were discussed with the patient, and the patient agreed to proceed with the procedure and signed the consent and vital signs monitored during the procedure and fluoroscopy was used to maximize the benefit and accuracy of the needle placement, and sedation was given to decrease patient anxiety, patient was taken to the procedure room and placed in prone position vital signs monitored in the back prepped with chlorhexidine X3 then under strict sterile technique using a right oblique fluoroscopy ,the junction of the transverse process and the superior articulating process of the right T6, T7 ,T8 vertebra which corresponding to the fluoroscopy image of the eye of the Earl dog on the block side for the medial branches and subsequently , after local infiltration of skin and subcu tissuies with Ropivacaine 0.5 % , one mL at each level ,then 22-gauge Quincke-type needles , 3 needle was used , each one of them placed at the junction of the base of the transverse process and the superior articular process at the appropriate level, and the needle was advanced until the periosteum contacted, needle placement confirmed with AP oblique and lateral view and after appropriate needle placement confirmed, and after negativ e aspiration for heme and CSF and there was no paresthesia 1-1/2 mL of Ropivacaine 0.5% mixed with 20 mg Depo-Medrol , then half mL injected at each level after negative aspiration the needle subsequently removed and the same procedure repeated for the left side at left side at T6, T7 ,T8 levels. At the end of the procedure and the needles removed and a bandage applied after the skin was cleaned the cleaning solution patient taken to recovery room in stable condition and monitors in the recovery room for 20-30 minutes and discharged home in stable condition after discharge criteria met and patient will follow up with the pain clinic in 2-4 weeks
[2021-02-10] MEDS ORDERED: IV FLUID CONTINUATION 1,000 ML IV ONE (08:37)
[2021-02-10 08:40] VITALS: BP 167/89; PULSE 61; RESP 18
--- NOTE | 2021-02-10 09:56 | XR ---
EXAMINATION TYPE: XR chest 1V portable DATE OF EXAM: 02/10/2021 Comparison: 12/30/2020 Clinical History: 80-year-old female post op thoracic pain management procedure Findings: Coiled surgical wire projecting at the midline lower neck. Heart remains borderline to mildly enlarge d. Atherosclerotic arch calcifications. No appreciable pneumothorax. Similar patchy peripheral left b asilar opacity. Impression: Exam is unchanged compared to 12/30/2020. Borderline to mild cardiomegaly and possible patchy atelecta sis or infiltrate in the periphery of the left base. No appreciable pneumothorax.
--- NOTE | 2021-02-10 14:14 | FL ---
EXAMINATION TYPE: FL guided pain mgmt statistic DATE OF EXAM: 02/10/2021 CLINICAL HISTORY: Mid back pain. TECHNIQUE: Fluoroscopy. COMPARISON: None. FINDINGS: Fluoroscopic guidance was provided during pain relief procedure performed by Dr. Holland . A total of 12 seconds of fluoroscopic time was utilized during the procedure and 4 spot images are acquired. Images acquired shows needle localization at multiple levels in the thoracic spine. IMPRESSION: As Above.
== END 2021-02-10 10:12 | disposition home or self-care (01) ==
LOC: ORPAIN 07:22
PROVIDERS: ATTEND Specialist
DX: M47.814 Spondylosis without myelopathy or radiculopathy, thoracic region (principal); G89.29 Other chronic pain; I51.7 Cardiomegaly
CPT/HCPCS: 64490; 64491; 71045; J2250; J1030; J3010; J2795

== ENCOUNTER → 2021-03-06 | Outpatient (CLI) | payer MEDICARE, BC ==
[2021-03-06 10:44] VITALS: BP 128/76; PULSE 53; RESP 18; TEMP 96.9
--- NOTE | 2021-03-06 11:01 | P.PN ---
Subjective Progress Note Date: 03/06/21 This is a 80 years old female with a chronic history of severe low back pain,she is diagnosed with Thoracic spondylosis with Thoracic facet arthropathy ,lumbar spondylosis with lumbar facet arthropathy, recently we have agnostic medial branch blocks thoracic area at T6-7 , T7 8 bilaterally she reported that she get excellent pain relief after each block ( more than 90% )and the pain relief lasted for several days , august of 2020 we have done RFA of the medial branch lumbar area , the pain interfere with her quality of life, she denies any weakness in her right upper extremy, shouldn't continue to do home exercise she already done physical therapy ,and she continued to use Motrin when necessary Physical Examinations : -Constitutiona : Cooperative , not in acute distress . -HEENT : nech : supple , no Lymphadenopathy , normal thyroid size . : eyes : no ptosis , no icterus, no photophobia . - neurologic : Cranial nerve II to XII intact , no focal neurological deffecit . -psychatric : alert , oriented X 3 , appropriate affect , intact judgment and insight . -Lymphatic : no Lymphadenopathy . - musculoskeltal : Cervical Spine motor stregnth in the deltoid and biceps, normal right side , normal Left side motor stregnth biceps and the wrist extensors normal right side ,normal left side . motor stregnth in the triceps muscle . normal Right side , normal Left side deep tendon reflexes normal at the biceps , normal at Brachioradialis , normal at triceps. cervical facet loading test: Positive Bilaterally Spurling test= positive Right , positive left. Neck distraction test= positive Right , positive left. Shlomo sign= positive right, positive left . Thoracic spine= ++ facet loading test mid thoracic area from T5 to T8 Lumber spine moter stegnth lower extremities ,thigh and legs 5/5 Right side , 5/5 Left side MRI of the thoracic spine T6 7 left paracentral disc protrusion and thoracic spondylosis and scoliosis Assessment and Plan Plan: Assessment and plan= 1-cervical radiculopathy. 2-lumbar spondylosis. 3-thoracic spondylosis. she had positive results with the diagnostic medial branch blocks thoracic area Chin to be good candidate to have RFA medial branch thoracic area at T6-7, T7 8 bilaterally - PQRS measures = - Patient's medications are documented in the chart. -Tobacco use is negative and counseling.Given. -Patient's has not received pneumococcal vaccine. -Advanced care planning discussed, patient not eligible. -Opiate contract not signed. -Pain positive and follow-up visit/procedure is scheduled. -Patient's blood pressure measured [128/76 ] , and documented in the record ,and patient will follow up with the primary care. -Patient's weight was measured and body mass index [ 26.5 ] above the, normal limits and counseling was done. and patient instructed to follow-up with the primary care physician. -Patient was not identified as an unhealthy alcohol user Objective - Vital Signs Vital signs: Vital Signs Temp 96.9 F L 03/06/21 10:37 Pulse 53 L 03/06/21 10:37 Resp 18 03/06/21 10:37 BP 128/76 03/06/21 10:37 Pulse Ox 95 03/06/21 10:37
== END ==
LOC: PNWHC3 10:27
PROVIDERS: ATTEND Specialist
DX: M54.12 Radiculopathy, cervical region (principal); M54.16 Radiculopathy, lumbar region; M47.814 Spondylosis without myelopathy or radiculopathy, thoracic region; Z91.09 Other allergy status, other than to drugs and biological substances; Z88.2 Allergy status to sulfonamides; Z88.5 Allergy status to narcotic agent; Z87.891 Personal history of nicotine dependence
CPT/HCPCS: 99211

== ENCOUNTER → 2021-03-30 | Outpatient (CLI) | payer MEDICARE, BC ==
--- NOTE | 2020-11-21 11:10 | P.PAINPG ---
Subjective Progress Note Date: 11/21/20 This is a 79 years old female with a chronic history of severe low back pain, is diagnosed with lumbar spondylosis with lumbar facet arthropathy, recenwe have an RFA of the medial branch lumbar area patient reported that her low back pain improved significantly currently she is having 0 pain in the low back area, also for pain is in the mid back area and she is diagnosed with thoracic spondylosis, was evaluated by Dr. Bush, who referred her to us to consider the frequency ablation of the thoracic spine. I'm of our last visit she noted that her thoracic spine was doing relatively well, but was having significant neck and right upper extremity pain. Given that she has an anterior and posterior fusion we attempted to do a right-sided transforaminal epidural steroid injection at C7-T1. However during the procedure unable to visualize and the procedure was aborted. The patient's main complaint is her mid back as well as her right upper extremity. In regards to the mid back she describes as sharp stabbing pain that is constant throughout the day. She said she recently had a pain attack where her pain was so great that she was vomiting multiple times and had to go to the hospital. Ever since that attack she endorses right upper shoulder pain on the medial aspect of her arm radiating down to her pinky. The pain is not so much pain is much is numbness and tingling and she is unsure what is causing this. Is considering seeing a neurosurgeon. Objective - Exam Physical Examinations : -Constitutiona : Cooperative , not in acute distress . -HEENT : nech : supple , no Lymphadenopathy , normal thyroid size . : eyes : no ptosis , no icterus, no photophobia . - neurologic : Cranial nerve II to XII intact , no focal neurological deffecit . -psychatric : alert , oriented X 3 , appropriate affect , intact judgment and insight . -Lymphatic : no Lymphadenopathy . - musculoskeltal : Cervical Spine motor stregnth in the deltoid and biceps, normal right side , normal Left side motor stregnth biceps and the wrist extensors normal right side ,normal left side . motor stregnth in the triceps muscle . normal Right side , normal Left side deep tendon reflexes normal at the biceps , normal at Brachioradialis , normal at triceps. cervical facet loading test: Positive Bilaterally Spurling test= positive Right , positive left. Neck distraction test= positive Right , positive left. Shlomo sign= positive right, positive left . Thoracic spine= 2 facet loading test mid thoracic area from T4-6 Lumber spine moter stegnth lower extremities ,thigh and legs 5/5 Right side , 5/5 Left side MRI of the thoracic spine T6 7 left paracentral disc protrusion and thoracic spondylosis and scoliosis Assessment and Plan Plan: Assessment and plan=1-cervical radiculopathy. 2-lumbar spondylosis. 3-thoracic spondylosis. Low back pain improved completely after RFA medial branch lumbar area. At this Time we will perform a medial branch block bilaterally at T4-T5 and T5- T6. Encouraged her to go to the hospital if she does experience a pain attack like that again. She does live alone and I would not want for her to get very sick and had no one to take care of her. We did discuss gabapentin for her right upper extremity neuropathic pain but at this time she is not interested in any medications that might be as sedating character. I have spent 33 minutes on patient care today. The time was used to review the medical records including relevant urine studies and prescription history, review of the available imaging, evaluation and examination of the patient, coordination of care with the medical staff and if applicable referring physicians, as well as creation of the medical record. - PQRS measures = - Patient's medications are documented in the chart. -Tobacco use is negative and counseling.Given. -Patient's has not received pneumococcal vaccine. -Advanced care planning discussed, patient not eligible. -Opiate contract not signed. -Pain positive and follow-up visit/procedure is scheduled. -Patient's blood pressure measured [170/80 ] , and documented in the record ,and patient will follow up with the primary care. -Patient's weight was measured and body mass index [ 26.5 ] above the, normal limits and counseling was done. and patient instructed to follow-up with the primary care physician. -Patient was not identified as an unhealthy alcohol user PQRS Measure Charge Sheet PQRS Narrative: Smoking Status Former smoker Hx Alcohol Use (MH) Yes: rare Home Medications: Ambulatory Orders Cholecalciferol [Vitamin D3 (25 Mcg = 1000 Iu)] 2,000 units PO DAILY 05/03/15 Omeprazole 20 mg PO BID 03/10/17 Ezetimibe [Zetia] 10 mg PO DAILY 07/02/20 Levothyroxine Sodium 25 mcg PO DAILY 10/01/19 Metoprolol Succinate (ER) [Toprol XL] 25 mg PO DAILY 10/01/19 Aspirin [Adult Low Dose Aspirin EC] 81 mg PO DAILY 08/11/20 Tolterodine ER [Detrol LA] 2 mg PO DAILY 08/11/20 Trimethoprim [Trimpex] 100 mg PO DAILY 08/11/20 diazePAM [Valium] 2.5 mg PO Q8HR PRN 11/16/20 Controlled Substance Measures - Controlled Substance Measures Is patient prescribed a controlled substance at discharge?: No
[~2021-03-30] MED LIST changes: +DENOSUMAB 60 MG/ML 1 ML SYRINGE SQ NR; -LACTATED RINGERS 1,000 ML IV SCH
[2021-03-30 10:07] VITALS: BP 150/83; PULSE 59; RESP 15; TEMP 98
== END ==
LOC: PROCWHC3 09:41
PROVIDERS: ATTEND Internal Medicine
DX: M81.0 Age-related osteoporosis without current pathological fracture (principal); Z87.891 Personal history of nicotine dependence; Z91.09 Other allergy status, other than to drugs and biological substances; Z88.2 Allergy status to sulfonamides; Z88.5 Allergy status to narcotic agent
CPT/HCPCS: 96372; J0897

== ENCOUNTER 2021-04-13 07:34 | Day surgery (SDC) | payer MEDICARE, BC ==
[2021-04-06 13:45] VITALS: BMI 27.8
[~2021-04-13 07:34] MED LIST changes: -DENOSUMAB 60 MG/ML 1 ML SYRINGE SQ NR; +LACTATED RINGERS 1,000 ML IV SCH
[2021-04-13 08:04] VITALS: TEMP 98.1
[2021-04-13] MEDS ORDERED: ROPIVACAINE 5MG/ML 20ML VIAL ONE (08:05)
[2021-04-13] MEDS ORDERED: methylPREDNISolone ACETATE 40 MG/ML 1 ML VIAL ONE (08:05)
[2021-04-13] MEDS ORDERED: fentaNYL (PF) 50 MCG/ML 2 ML AMP ONE (08:05)
[2021-04-13] MEDS ORDERED: MIDAZOLAM 2 MG/2 ML VIAL ONE (08:05)
--- NOTE | 2021-04-13 08:51 | P.PCN ---
Date of Procedure: 04/13/21 Procedure(s) Performed: PREOPERATIVE DIAGNOSIS: 1-Thoracic Spondylosis with Facet Arthropathy without myelopathy. POSTOPERATIVE DIAGNOSIS: 1- Thoracic Spondylosis with Facet Arthropathy without myelopathy. PROCEDURES : Bilateral Radiofrequency thermocoagulation, T6,T7 ,T8 medial branch, with fluoroscopic guidance (fluoroscopy images available in the radiology department) ( to denervate the facet joint at Bilateral T6-7 ,T7-8 levels ). ANESTHESIA: Moderate sedation with intravenous versed 4 mg and fentaneyl 100 mcg, and local infiltration with Ropivacaine 0.5 % . EBL: Minimal PROCEDURE INDICATION: The patient with low back pain secondary to lumbar facet arthropathy who had more than 50% relief of her pain with previous diagnostic lumbar medial branch block with bupivacaine. PROCEDURE DESCRIPTION / TECHNIQUE: The patient was seen and identified in the preoperative area. Risks, benefits, complications, including but not limited to risk of infection ,bleeding , allergic reactions to the medications and no complete pain releife , and alternatives were discussed with the patient, the patient agreed to proceed with the procedure and signed the consent. IV was started. Vital signs remained stable throughout the procedure. Patient was taken to the OR and time out was completed. The patient was placed in the prone position on the procedure table. The lumber area was prepped and draped in the usual sterile fashion. . Vital signs were closely monitored during the procedure .IV sedation was used during the procedure to decrease patients anxiety. Using AP and then oblique fluoroscopy, the ``eye of the Earl dog corresponding to the connection between the superior and transverse articular processes of right T6,T7,T8 were identified, marked, and localized with 1% lidocaine. Subsequently, a 20 [id number] radiofrequency cannula with a 10-mm active tip was advanced guided by fluoroscopy to each of the``eyes of the Earl dog at right T6,T7,T8 Each site then underwent sensory testing at 50 Hz and 0 to 1 volt and motor testing at 2.5 Hz and 0 to 3 volt with local stimulation, but no radicular symptoms down the legs. Thereafter each sites underwent radiofrequency thermocoagulation at 80 degrees celsius for 90 seconds after injecting 0.5 ml of PF Ropivacaine 1ml, then after the thermocoagulation done , 1 ml of the block solution containing Depo-Medrol 20 mg and 3 ml of Ropivacaine 0.5% was injected at the right T6,T7,T8 , levels after negative aspiration of CSF and blood and with no paresthesias. Cannulas were retracted while injecting lidocaine 1% until the needle is out. The same procedure was repeated at the level of Left T6, T7, T8 levels. At the end of the procedure, the skin was cleansed and bandages were applied. COMPLICATIONS: No acute complications. DISPOSITION / PLANS: The patient was placed in a supine position and transferred to the recovery area in a stable condition for observation and was discharged from the recovery room after meeting discharge criteria. Home discharge instructions given to the patient by the staff. The patient was reexamined prior to discharge. The patient will schedule a follow up in the clinic in 2-4 weeks.
[2021-04-13 08:58] VITALS: PULSE 67; RESP 18
[2021-04-13 09:12] VITALS: BP 111/68
--- NOTE | 2021-04-13 09:17 | XR ---
EXAMINATION TYPE: XR chest 1V portable DATE OF EXAM: 04/13/2021 Comparison: 02/10/2021 Clinical History: 80-year-old female RULE OUT PNEUMOTHORAX AFTER THORACIC RADIO FREQ. Findings: Some type of coiled up metallic wire is noted projecting at the midline neck. Heart upper limits of n ormal in size. Relative upper lung lucencies may reflect emphysema. Retrocardiac region underpenetrat ed and not well assessed. No definite consolidation. No appreciable pneumothorax. Impression: No acute change or appreciable pneumothorax.
--- NOTE | 2021-04-13 10:18 | FL ---
EXAMINATION TYPE: FL guided pain mgmt statistic DATE OF EXAM: 04/13/2021 CLINICAL HISTORY: Mid back pain. TECHNIQUE: Fluoroscopy. COMPARISON: None. FINDINGS: Fluoroscopic guidance was provided during pain relief procedure performed by Dr. Holland . A total of 24 seconds of fluoroscopic time was utilized during the procedure and 6 spot images are acquired. Images acquired shows needle localization at several levels in the thoracic spine. IMPRESSION: As Above.
== END 2021-04-13 09:43 | disposition home or self-care (01) ==
LOC: ORPAIN 07:34
PROVIDERS: ATTEND Specialist
DX: M47.814 Spondylosis without myelopathy or radiculopathy, thoracic region (principal); Z88.5 Allergy status to narcotic agent; Z88.2 Allergy status to sulfonamides; Z91.048 Other nonmedicinal substance allergy status
CPT/HCPCS: 71045; 64633; 64634; J2250; J1030; J3010; J2795; 99152; 99153

== ENCOUNTER → 2021-05-18 | Outpatient (CLI) | payer MEDICARE, BC ==
[2021-05-18 14:40] VITALS: BP 112/82; PULSE 94; RESP 16; TEMP 98.6
--- NOTE | 2021-05-18 14:51 | P.PN ---
Subjective Progress Note Date: 05/18/21 Principal diagnosis: A 80 yr old female with a history of severe and chronic mid back pain secondary to lumbar degenerative disc diseases and lumbar spondylosis with facet arthropathy presents today for evaluation status post bilateral T6-T7, T7-T8 RFA. Patient states she experienced 75% pain relief status post procedure but is feeling mid back pain currently that she attributes due to cold weather. Pain level is currently at 7 out of 10 in intensity, dull, achy, sore in the mid back with a stabbing, shooting character type of pain left and right of midline. Pain is provoked by standing for periods of 45 minutes or more. Pain is alleviated with medications, topicals CBD cream, injections, currently in physical therapy, home stretching regimen, use of a cane for ambulation, use of a TENS unit one year ago, massage therapy, repositioning and rest. Interventional pain procedures completed include bilateral RFA of T6-T7, T7-T8 Patient is currently on Motrin OTC Patient denies any side effects of the medication(s), denies excessive drowsiness or sleepiness, denies suicidal ideation and reports that the current pain medication is helping to control the pain and improve activities of daily living. Patient denies any motor or sensory deficits. Patient denies any fever or night sweats, denies any change in the bowel movements or urination. Physical Examination: -Constitutional: Cooperative. Not in acute distress . -HEENT: Neck is supple. No lymphadenopathy. No thyromegaly. Normal thyroid size. Eyes: No ptosis , no icterus, no photophobia. ENT: No auditory deficits. Normal oropharynx. No Thrush. - Respiratory: Chest clear to auscultations bilaterally. No wheezing. No rhonchi. - Cardiovascular: Regular rate and rhythm. S1 / S2 , no S3 , no S4. - Gastrointestinal: Abdomen soft no tenderness. Bowel sounds positive in all four quadrants. No organomegaly. - Genitourinary: Deferred. - Neurologic: Cranial nerve II to XII intact. No focal neurological deficits. - Psychatric: Alert & oriented x 3. Matching mood & appropriate affect. Judgment and insight intact. - Lymphatic: No Lymphadenopathy. - Musculoskeletal: Cervical spine: Muscle bulk/ tone/ strength in the bilateral upper extremities normal. Facet loading test cervical area positive. Thoracic spine: Mild tenderness to palpation over the T6, T7 Paraspinal tenderness to palpation over the T7 to T8 bilaterally No spasms noted Lumbar spine: Motor bulk/ tone/ strength lower extremities , thigh and legs : 5/5 Deep tendon reflexes : Normal Knee Jerk. Normal Ankle Jerk . Vertebral body tenderness to palpation over Lumbar Facet Loading Test positive Straight Leg Raise: positive at 30 degrees right side/ left side Gaenslen's Test positive Sacral spine : Severe tenderness over the Sacroiliac joint: right side / left side Range of motion: Flexion of the lumbar spine <60 degrees Range of motion: Extension of the lumbar spine <20 degrees Gaenslen's Test positive Casey test: positive right side / left side Assessment and plan: Chronic mid back pain secondary to lumbar degenerative disc disease , lumbar spondylosis with facet arthropathy without myelopathy Discussed strategic application of topicals over the affected area as the patient lives alone. Strategies include application of topical with a telescoping device, apply on gauze and laying and bed to fracture gauze on affected area, etc Diagnoses, prognosis and treatment options including but not limited to physical therapy, surgical interventions, interventional therapies and medication management including narcotics and adjuvant medication were discussed. All patient questions answered MAPS reviewed and it was appropriate. I have spent 31 minutes on patient care today. Dr Holland was available by phone for the evaluation of this patient. The time was used to review the medical records including relevant urine studies and Prescription history (MAPs), review of the available imaging, evaluation and examination of the patient, coordination of care with the medical staff and if applicable referring physicians, as well as creation of the medical record Objective - Vital Signs Vital signs: Vital Signs Temp 98.6 F 05/18/21 14:32 Pulse 94 05/18/21 14:32 Resp 16 05/18/21 14:32 BP 112/82 05/18/21 14:32 Pulse Ox 96 05/18/21 14:32 Intake & Output 05/17/21 05/18/21 05/18/21 18:59 06:59 18:59 Weight 66.678 kg PQRS Measure Charge Sheet Mode of Arrival: Ambulatory, Cane - Pain Location Back Non-Pharmacological Interventions: Heat, Home Exercise, Ice, Inactivity, Massage, Physical Therapy, Stretching, TENS Unit Pharmacological Interventions: Block, Epidural, PRN Medication, Topical Medication PQRS Narrative: Smoking Status Former smoker Blood Pressure 112/82 Pain Intensity [Back] 7 Pain Intensity [Lower Back] 6 Scale Used Numeric (1 - 10) Hx Alcohol Use (MH) Yes: rare Home Medications: Ambulatory Orders Cholecalciferol [Vitamin D3 (25 Mcg = 1000 Iu)] 2,000 units PO DAILY 05/03/15 Omeprazole 20 mg PO BID 03/10/17 Ezetimibe [Zetia] 10 mg PO DAILY 10/01/19 Levothyroxine Sodium 25 mcg PO DAILY 10/01/19 Metoprolol Succinate (ER) [Toprol XL] 25 mg PO DAILY 10/01/19 Aspirin [Adult Low Dose Aspirin EC] 81 mg PO DAILY 08/11/20 Tolterodine ER [Detrol LA] 2 mg PO DAILY 08/11/20 Trimethoprim [Trimpex] 100 mg PO DAILY 08/11/20 Ibuprofen [Motrin Ib] 200 - 400 mg PO Q8H PRN 02/09/21
== END ==
LOC: PNWHC3 13:31
PROVIDERS: ATTEND Physician Assistant Medical
DX: G89.29 Other chronic pain (principal); M51.36 Other intervertebral disc degeneration, lumbar region; M47.816 Spondylosis without myelopathy or radiculopathy, lumbar region; Z88.2 Allergy status to sulfonamides; Z88.5 Allergy status to narcotic agent; Z91.048 Other nonmedicinal substance allergy status; Z87.891 Personal history of nicotine dependence
CPT/HCPCS: 99211

== ENCOUNTER → 2021-05-23 | Outpatient (CLI) | payer MEDICARE, BC ==
--- NOTE | 2021-05-23 18:28 | BD ---
EXAMINATION TYPE: Axial Bone Density DATE OF EXAM: 05/23/2021 COMPARISON: 2019 CLINICAL HISTORY: menopausal Height: 5'1 Weight: 152 FRAX RISK QUESTIONS: Glucocorticoids (More than 3mos): y (Ex: prednisone, prednisolone, methylprednisolone, dexamethasone, and hydrocortisone). History of Fracture in Adulthood: y Secondary Osteoporosis: RISK FACTORS HISTORY OF: Surgery to Spine/): c sp fusion When: 30 years ago Active: n Postmenopausal woman: y MEDICATIONS: Prednisone or other steroids: pain, deg disc How Lon years Additional Medications: blood pressure, cholesterol Additional History: EXAM MEASUREMENTS: Bone mineral densitometry was performed using the [employer] System. Bone mineral density as measured about the Lumbar spine is: ----- L1-L4(G/cm2): 0.952 T Score Values are as follows: ----- L2: -2.3 ----- L3: -1.5 ----- L4:-1.6 --- L1-L4: -1.9 Bone mineral density has: increased 9.4% since study of: 11/04/2018 Bone mineral density about the R hip (g/cm2): 0.764 Bone mineral density about the L hip (g/cm2):0.672 T Score values are as follows: -----R Neck: -2.0 -----L Neck: -2.6 -----R Total: -1.9 -----L Total: -2.3 Bone mineral density has: Increased 3.8 % since study of: 11/04/2018 IMPRESSION: Osteoporosis (T Score less than -2.5). There is increased fracture risk and therapy is usually indicated based on age. Re-Screen 1-2 years. NOTE: T-SCORE=SD OF THE YOUNG ADULT MEAN.
== END | disposition home or self-care (01) ==
LOC: RADBDWWP 13:25
PROVIDERS: ATTEND Internal Medicine
DX: N95.1 Menopausal and female climacteric states (principal); M81.0 Age-related osteoporosis without current pathological fracture
CPT/HCPCS: 77080

== ENCOUNTER 2021-06-23 08:49 | Day surgery (SDC) | payer MEDICARE, BC ==
[2021-06-22 09:13] VITALS: BMI 28.3
[~2021-06-23 08:49] MED LIST changes: +LIDOCAINE 1% (10MG/ML) FOR IV START INTRADERMA PRN
[2021-06-23 09:41] VITALS: TEMP 97
[2021-06-23] MEDS ORDERED: LIDOCAINE 1% INJ 10MG/ML (20 ML MDV) ONE (10:10)
[2021-06-23] MEDS ORDERED: PROPOFOL 10 MG/ML 20 ML VIAL IV ONE (10:10)
--- NOTE | 2021-06-23 10:22 | P.PCN ---
Date of Procedure: 06/23/21 Procedure(s) Performed: BRIEF HISTORY: Patient is a 80-year-old, pleasant, white female scheduled for an upper endoscopy as a part of evaluation of long-standing history of GERD and intermittent dysphagia to solids. Recently she has been on Protonix 40 mg twice daily and still has severe heartburn and burning sensation in his epigastric area. She also has intermittent dysphagia to solids. Last EGD with dilation wasn't March 2019.. PROCEDURE PERFORMED: Esophagogastroduodenoscopy with biopsy and dilation. PREOPERATIVE DIAGNOSIS: Severe heartburn and intermittent dysphagia to solids. IV sedation per anesthesia. PROCEDURE: After informed consent was obtained, the patient was brought into [facility] endoscopy unit. IV sedation was administered by Anesthesia under continuous monitoring. Initially the Olympus GIF-140 video endoscope was inserted into the mouth. Esophagus intubated without any difficulty. It was gradually advanced into the stomach and duodenum and carefully examined. The bulb and the second part of the duodenum appeared normal. The scope at this time was withdrawn to the stomach, adequately insufflated with air, and upon careful examination, mucosa of the antrum, body, cardia and the fundus appeared normal. The scope was then withdrawn into the esophagus. The GE junction was located at 39 cm from the incisors. There was a distal esophageal stricture identified which was dilated using 12-18 mm TTS balloon in a sequential fashion for 30 seconds. There was a small hiatal hernia noted. The esophagus appeared normal. There were no erosions or ulcerations seen, biopsies were done from the mid and distal esophagus and the patient tolerated the procedure well. IMPRESSION: 1. Distal esophageal stricture status post balloon dilation using 12-15 mm TTS balloon in a sequential fashion as described above. 2. Small hiatal hernia but no evidence of esophagitis or Perry's esophagus. RECOMMENDATIONS: The findings of this examination were discussed with the patient as well as a family. She was advised to follow with the biopsy results. She'll be on a clear liquid diet for lunch today. She will continue with Protonix 40 mg twice daily and will add Carafate 1 g 4 times daily. She'll be seen in office in 6 weeks..
[2021-06-23] MEDS ORDERED: LABETALOL 5 MG/ML VIAL MDV IVP ONE (11:10)
[2021-06-23 12:11] VITALS: BP 137/78; PULSE 61; RESP 16
== END 2021-06-23 12:12 | disposition home or self-care (01) ==
LOC: ORWHC2ENDO 08:49
PROVIDERS: ATTEND Internal Medicine Gastroenterology
DX: K22.2 Esophageal obstruction (principal); K44.9 Diaphragmatic hernia without obstruction or gangrene; K21.9 Gastro-esophageal reflux disease without esophagitis
CPT/HCPCS: 43249; 88305; J2001; J2704; C1726; 43239

== ENCOUNTER → 2021-07-26 | Outpatient (CLI) | payer MEDICARE, BC ==
[2021-07-26 08:55] VITALS: BP 127/86; PULSE 59; RESP 18; TEMP 98
--- NOTE | 2021-07-26 09:05 | P.PN ---
Subjective Progress Note Date: 07/26/21 Principal diagnosis: A 80 yr old female with a history of severe and chronic low back pain secondary to lumbar degenerative disc diseases and lumbar spondylosis with facet arthropathy presents today for evaluation of BL RFA L4-L5, L5-S1 from August, and evaluation of LBP. Pt states she experienced approximately 99% pain relief s/p RFA procedure. Pain level is currently at 7/10 in intensity, tight, constant, pressure sensation in the lower lumbar spine where it meets her tailbone with radiation of pain to the hips BL. Pain is provoked by cold weather. Pain is alleviated with medications, topicals, injections, alternating ice and heat, repositioning, physical therapy of which she is currently in for her knees, use of a cane for ambulation, massage therapy 2-3 times per week, laying on her left side, use of a lumbar support pillow and rest. Interventional pain procedures completed include BL RFA of L4-L5, L5-S1. BL RFA of T6-T7, T7-T8. Patient is currently on Ibuprofen OTC Patient denies any side effects of the medication(s), denies excessive drowsiness or sleepiness, denies suicidal ideation and reports that the current pain medication is helping to control the pain and improve activities of daily living. Patient denies any motor or sensory deficits. Patient denies any fever or night sweats, denies any change in the bowel movements or urination. Physical Examination: -Constitutional: Cooperative. Not in acute distress . -HEENT: Neck is supple. No lymphadenopathy. No thyromegaly. Normal thyroid size. Eyes: No ptosis , no icterus, no photophobia. ENT: No auditory deficits. Normal oropharynx. No Thrush. - Respiratory: Chest clear to auscultations bilaterally. No wheezing. No rhonchi. - Cardiovascular: Regular rate and rhythm. S1 / S2 , no S3 , no S4. - Gastrointestinal: Abdomen soft no tenderness. Bowel sounds positive in all four quadrants. No organomegaly. - Genitourinary: Deferred. - Neurologic: Cranial nerve II to XII intact. No focal neurological deficits. - Psychatric: Alert & oriented x 3. Matching mood & appropriate affect. Judgment and insight intact. - Lymphatic: No Lymphadenopathy. - Musculoskeletal: Cervical spine: Muscle bulk/ tone/ strength in the bilateral upper extremities normal. Facet loading test cervical area positive. Lumbar spine: Motor bulk/ tone/ strength lower extremities , thigh and legs : 5/5 Deep tendon reflexes : Normal Knee Jerk. Normal Ankle Jerk . Vertebral body tenderness to palpation over Lumbar Facet Loading Test positive over L4-L5 (moderate), L5-S1 (severe) with jump reflex Straight Leg Raise: positive at 30 degrees right side/ left side Gaenslen's Test positive Sacral spine : Severe tenderness over the Sacroiliac joint: right side / left side Range of motion: Flexion of the lumbar spine <60 degrees Range of motion: Extension of the lumbar spine <20 degrees Gaenslen's Test positive Casey test: positive right side / left side Assessment and plan: Chronic low back pain secondary to lumbar degenerative disc disease , lumbar spondylosis with facet arthropathy without myelopathy Recommendation of RFA BL L4-L5, L5-S1. Pt experienced sufficient and optimal pain relief with the procedure in August,. Risks, benefits of procedure discussed and pt verbalized understanding. Denies anticoagulant use or medical history of diabetes. All patient questions answered MAPS reviewed and it was appropriate. I have spent 31 minutes on patient care today. Dr Holland was available by phone for the evaluation of this patient. The time was used to review the medical records including relevant urine studies and Prescription history (MAPs), review of the available imaging, evaluation and examination of the patient, coordination of care with the medical staff and if applicable referring physicians, as well as creation of the medical record Objective - Vital Signs Vital signs: Vital Signs Temp 98.0 F 07/26/21 08:37 Pulse 59 L 07/26/21 08:37 Resp 18 07/26/21 08:37 BP 127/86 07/26/21 08:37 Pulse Ox 95 07/26/21 08:37 Intake & Output 07/25/21 07/26/21 07/26/21 18:59 06:59 18:59 Weight 66.678 kg PQRS Measure Charge Sheet Mode of Arrival: Ambulatory, Cane - Pain Location Bilateral Lower Back Non-Pharmacological Interventions: Heat, Ice, Inactivity, Position/Reposition, Sitting Pharmacological Interventions: Block, PRN Medication PQRS Narrative: Smoking Status Former smoker Blood Pressure 127/86 Pain Intensity [Bilateral 7 Lower Back] Scale Used Numeric (1 - 10) Hx Alcohol Use (MH) Yes: rare Home Medications: Ambulatory Orders Cholecalciferol [Vitamin D3 (25 Mcg = 1000 Iu)] 2,000 units PO DAILY 05/03/15 Omeprazole 20 mg PO BID 03/10/17 Ezetimibe [Zetia] 10 mg PO DAILY 10/01/19 Levothyroxine Sodium 25 mcg PO DAILY 10/01/19 Metoprolol Succinate (ER) [Toprol XL] 25 mg PO DAILY 10/01/19 Aspirin [Adult Low Dose Aspirin EC] 81 mg PO DAILY 08/11/20 Tolterodine ER [Detrol LA] 2 mg PO DAILY 08/11/20 Trimethoprim [Trimpex] 100 mg PO DAILY 08/11/20 Ibuprofen [Motrin Ib] 200 - 400 mg PO Q8H PRN 02/09/21 Pantoprazole [Protonix] 40 mg PO BID 06/22/21
== END ==
LOC: PNWHC3 08:03
PROVIDERS: ATTEND Specialist
DX: M54.50 Low back pain, unspecified (principal); M51.36 Other intervertebral disc degeneration, lumbar region; M47.816 Spondylosis without myelopathy or radiculopathy, lumbar region; G89.29 Other chronic pain; Z87.891 Personal history of nicotine dependence; Z88.2 Allergy status to sulfonamides; Z88.5 Allergy status to narcotic agent; Z88.9 Allergy status to unspecified drugs, medicaments and biological substances
CPT/HCPCS: 99211

== ENCOUNTER 2021-08-25 10:16 | Day surgery (SDC) | payer MEDICARE, BC ==
[2021-08-25] MEDS ORDERED: LIDOCAINE 1% (10MG/ML) FOR IV START INTRADERMA PRN (10:23)
[2021-08-25] MEDS ORDERED: LACTATED RINGERS 1,000 ML IV SCH (10:23)
[2021-08-25 10:29] VITALS: RESP 16; TEMP 97
[2021-08-25] MEDS ORDERED: ROPIVACAINE 5MG/ML 20ML VIAL ONE (10:42)
[2021-08-25] MEDS ORDERED: methylPREDNISolone ACETATE 40 MG/ML 1 ML VIAL ONE (10:42)
[2021-08-25] MEDS ORDERED: fentaNYL (PF) 50 MCG/ML 2 ML AMP ONE (10:44)
[2021-08-25] MEDS ORDERED: MIDAZOLAM 2 MG/2 ML VIAL ONE (10:44)
--- NOTE | 2021-08-25 11:16 | P.PCN ---
Date of Procedure: 08/25/21 Procedure(s) Performed: PREOPERATIVE DIAGNOSIS: 1-Lumbar Spondylosis with Facet Arthropathy without myelopathy. 2- Lumber degenerative disc disease. POSTOPERATIVE DIAGNOSIS: 1- Lumbar Spondylosis with Facet Arthropathy without myelopathy. 2- Lumber degenerative disc disease. PROCEDURES : Bilateral Radiofrequency thermocoagulation, L3 , L4 , and L5 medial branch, with fluoroscopic guidance (fluoroscopy images available in the radiology department) ( to denervate the facet joint at Bilateral L4-5 ,and L5-S1 levels ). ANESTHESIA: Monitered anesthesia care as per anesthesia department. EBL: Minimal PROCEDURE INDICATION: The patient with low back pain secondary to lumbar facet arthropathy who had more than 50% relief of her pain with previous diagnostic lumbar medial branch block with bupivacaine. PROCEDURE DESCRIPTION / TECHNIQUE: The patient was seen and identified in the preoperative area. Risks, benefits, complications, including but not limited to risk of infection ,bleeding , allergic reactions to the medications and no complete pain releife , and alternatives were discussed with the patient, the patient agreed to proceed with the procedure and signed the consent. IV was started. Vital signs remained stable throughout the procedure. Patient was taken to the OR and time out was completed. The patient was placed in the prone position on the procedure table. The lumber area was prepped and draped in the usual sterile fashion. . Vital signs were closely monitored during the procedure .IV sedation was used during the procedure to decrease patients anxiety. Using AP and then oblique fluoroscopy, the ``eye of the Earl dog cor responding to the connection between the superior and transverse articular processes of right L3, L4, and L5 were identified, marked, and localized with 1% lidocaine. Subsequently, a 18 -mz radiofrequency cannula with a 10- mm active tip was advanced guided by fluoroscopy to each of the``eyes of the Earl dog at right L3, L4, and L5. Each site then underwent sensory testing at 50 Hz and 0 to 1 volt and motor testing at 2.5 Hz and 0 to 3 volt with local stimulation, but no radicular symptoms down the legs. Thereafter each sites underwent radiofrequency thermocoagulation at 80 degrees celsius for 90 seconds after injecting 0.5 ml of PF Ropivacaine 1ml, then after the thermocoagulation done , 1 ml of the block solution containing Depo-Medrol 20 mg and 3 ml of Ropivacaine 0.5% was injected at the right L3 , L4 , and L5 , levels after negative aspiration of CSF and blood and with no paresthesias. Cannulas were retracted while injecting lidocaine 1% until the needle is out. The same procedure was repeated at the level of Left L3, L4, and L5 levels. At the end of the procedure, the skin was cleansed and bandages were applied. COMPLICATIONS: No acute complications. DISPOSITION / PLANS: The patient was placed in a supine position and transferred to the recovery area in a stable condition for observation and was discharged from the recovery room after meeting discharge criteria. Home discharge instructions given to the patient by the staff. The patient was reexamined prior to discharge. The patient will schedule a follow up in the clinic in 2-4 weeks.
[2021-08-25] MEDS ORDERED: IV FLUID CONTINUATION 1,000 ML IV ONE (11:20)
--- NOTE | 2021-08-25 11:32 | FL ---
EXAMINATION TYPE: FL guided pain mgmt statistic DATE OF EXAM: 08/25/2021 CLINICAL HISTORY: Low back pain. TECHNIQUE: Fluoroscopy. COMPARISON: None. FINDINGS: Fluoroscopic guidance was provided during pain relief procedure performed by anesthesia Dr . A total of 17 seconds of fluoroscopic time was utilized during the procedure and 6 spot images are acquired. Images acquired shows needle localization at several levels in the lower lumbar spine claudette aterally. IMPRESSION: As Above.
[2021-08-25 11:35] VITALS: BP 140/76; PULSE 72
== END 2021-08-25 12:03 | disposition home or self-care (01) ==
LOC: ORPAIN 10:16
PROVIDERS: ATTEND Specialist
DX: M47.814 Spondylosis without myelopathy or radiculopathy, thoracic region (principal); M47.816 Spondylosis without myelopathy or radiculopathy, lumbar region; M51.36 Other intervertebral disc degeneration, lumbar region
CPT/HCPCS: 64635; 64636; J2250; J1030; J3010; J2795

== ENCOUNTER → 2021-09-11 | Outpatient (CLI) | payer MEDICARE, BC ==
[2021-09-11 10:53] VITALS: BP 126/74; PULSE 64; RESP 18; TEMP 98.2
--- NOTE | 2021-09-11 10:57 | P.PAINPG ---
PQRS Measure Charge Sheet Comment: A 80 yr old female with a history of severe and chronic low back pain secondary to lumbar degenerative disc diseases and lumbar spondylosis with facet arthropathy presents today for evaluation s/p BL RFA L3-L5. She states she expressed 75% pain relief status post procedure. Pain level is currently at 5 out of 10 in intensity, constant, stiff, sore in the lower aspects of her lumbar spine with radiation of pain to the buttocks bilaterally. Pain is provoked by walking and standing for periods of 10 minutes or more. Pain is alleviated with medications, injections, ice, heat, physical therapy of which she is currently an for her knees but she does get occasional lower back massages, PT in the past, home exercise regimen every morning, use of a chair support brace, repositioning and rest. Interventional pain procedures completed include BL RFA L3-L5 Patient is currently on ibuprofen Patient denies any side effects of the medication(s), denies excessive drowsiness or sleepiness, denies suicidal ideation and reports that the current pain medication is helping to control the pain and improve activities of daily living. Patient denies any motor or sensory deficits. Patient denies any fever or night sweats, denies any change in the bowel movements or urination. Physical Examination: -Constitutional: Cooperative. Not in acute distress . -HEENT: Neck is supple. No lymphadenopathy. No thyromegaly. Normal thyroid size. Eyes: No ptosis , no icterus, no photophobia. ENT: No auditory deficits. Normal oropharynx. No Thrush. - Respiratory: Chest clear to auscultations bilaterally. No wheezing. No rhonchi. - Cardiovascular: Regular rate and rhythm. S1 / S2 , no S3 , no S4. - Gastrointestinal: Abdomen soft no tenderness. Bowel sounds positive in all four quadrants. No organomegaly. - Genitourinary: Deferred. - Neurologic: Cranial nerve II to XII intact. No focal neurological deficits. - Psychatric: Alert & oriented x 3. Matching mood & appropriate affect. Judgment and insight intact. - Lymphatic: No Lymphadenopathy. - Musculoskeletal: Cervical spine: Muscle bulk/ tone/ strength in the bilateral upper extremities normal Vertebral body tenderness to palpation over Facet loading test positive Thoracic spine Muscle bulk / tone/ strength in the bilateral paraspinal muscles normal Vertebral body tender to palpation over Facet loading test positive Lumbar spine: Motor bulk/ tone/ strength lower extremities , thigh and legs : 5/5 Deep tendon reflexes : Normal Knee Jerk. Normal Ankle Jerk . Vertebral body tenderness to palpation over Lumbar Facet Loading Test positive with deep palpation Straight Leg Raise: positive at 30 degrees right side/ left side Gaenslen's Test positive Sacral spine : Severe tenderness over the Sacroiliac joint: right side / left side Range of motion: Flexion of the lumbar spine <60 degrees Range of motion: Extension of the lumbar spine <20 degrees Gaenslen's Test positive Marcus's Test positive Casey test: positive right side / left side Thigh Thrust Test Sacral Thrust Test Assessment and plan: Chronic low back pain secondary to lumbar degenerative disc disease , lumbar spondylosis with facet arthropathy without myelopathy Jj exhibited sufficient and optimal pain relief status post procedure. She is in acceptance to having "some form of pain" status post procedure and will continue with home pain modification remedies. Patient may return trough an as-needed basis. Prescription for Lidoderm 5% QAM prn pain, remove at bedtime, #30 w 1 refill All patient questions answered I have spent 31 minutes on patient care today. Dr Holland was available by phone for the evaluation of this patient. The time was used to review the medical records including relevant urine studies and Prescription history (MAPs), review of the available imaging, evaluation and examination of the pa tient, coordination of care with the medical staff and if applicable referring physicians, as well as creation of the medical record - Pain Location Lower Back Non-Pharmacological Interventions: Heat, Home Exercise, Ice, Inactivity, Physical Therapy, Position/Reposition, Sitting, Stretching Pharmacological Interventions: Block, PRN Medication PQRS Narrative: Smoking Status Former smoker Pain Intensity [Lower Back] 4 Hx Alcohol Use (MH) Yes: rare Home Medications: Ambulatory Orders Cholecalciferol [Vitamin D3 (25 Mcg = 1000 Iu)] 2,000 units PO DAILY 05/03/15 Levothyroxine Sodium 25 mcg PO DAILY 10/01/19 Metoprolol Succinate (ER) [Toprol XL] 25 mg PO DAILY 10/01/19 Aspirin [Adult Low Dose Aspirin EC] 81 mg PO DAILY 08/11/20 Tolterodine ER [Detrol LA] 2 mg PO DAILY 08/11/20 Ibuprofen [Motrin Ib] 200 - 400 mg PO Q8H PRN 02/09/21 Pantoprazole [Protonix] 40 mg PO BID 06/22/21 Sucralfate [Carafate] 1 gm PO QID 09/08/21 Controlled Substance Measures - Controlled Substance Measures Is patient prescribed a controlled substance at discharge?: No
== END ==
LOC: PNWHC3 10:07
PROVIDERS: ATTEND Specialist
DX: M51.36 Other intervertebral disc degeneration, lumbar region (principal); M47.816 Spondylosis without myelopathy or radiculopathy, lumbar region; G89.29 Other chronic pain; Z88.2 Allergy status to sulfonamides; Z88.5 Allergy status to narcotic agent; Z88.9 Allergy status to unspecified drugs, medicaments and biological substances; Z87.891 Personal history of nicotine dependence
CPT/HCPCS: 99211

== ENCOUNTER → 2021-09-29 | Outpatient (CLI) | payer MEDICARE, BC ==
[~2021-09-29] MED LIST changes: +DENOSUMAB 60 MG/ML 1 ML SYRINGE SQ NR; -LACTATED RINGERS 1,000 ML IV SCH; -LIDOCAINE 1% (10MG/ML) FOR IV START INTRADERMA PRN
[2021-09-29 08:36] VITALS: BP 136/83; PULSE 56; RESP 16; TEMP 97.6
== END ==
LOC: PROCWHC3 08:12
PROVIDERS: ATTEND Internal Medicine
DX: M81.0 Age-related osteoporosis without current pathological fracture (principal); Z87.891 Personal history of nicotine dependence; Z88.9 Allergy status to unspecified drugs, medicaments and biological substances; Z88.5 Allergy status to narcotic agent; Z88.2 Allergy status to sulfonamides
CPT/HCPCS: 96372; J0897

== ENCOUNTER 2021-11-28 06:07 | Day surgery (SDC) | payer MEDICARE, BC ==
[2021-11-27 11:49] VITALS: BMI 28.1
[~2021-11-28 06:07] MED LIST changes: +ALPRAZolam 0.25 MG TAB PO PRN; +ALPRAZolam 0.5 MG TAB PO PRN; -DENOSUMAB 60 MG/ML 1 ML SYRINGE SQ NR; +HEPARIN SODIUM,PORCINE 10,000 UNIT in SODIUM CHLORIDE 0.9% 1,000 ML IRRIGATION PRN; +HEPARIN SODIUM,PORCINE 2,500 UNIT in SODIUM CHLORIDE 0.9% 250 ML IRRIGATION PRN; +NITROGLYCERIN SL TABS 0.4 MG TAB SUBLINGUAL PRN; +SODIUM CHLORIDE 0.9% 1,000 ML in EMPTY BAG 1 BAG IV SCH
[2021-11-28] MEDS ORDERED: SODIUM CHLORIDE 0.9% 1,000 ML IV ONE (06:13)
[2021-11-28 06:29] VITALS: RESP 16; TEMP 98.1
[2021-11-28] MEDS ORDERED: ASPIRIN 325 MG TAB PO ONE (07:00)
[2021-11-28] MEDS ORDERED: ATORVASTATIN 80 MG TAB PO ONE (07:00)
[2021-11-28] MEDS ORDERED: VERAPAMIL 2.5 MG/ML 2 ML AMP ONE (07:17)
[2021-11-28] MEDS ORDERED: fentaNYL (PF) 50 MCG/ML 2 ML AMP ONE (07:28)
[2021-11-28] MEDS ORDERED: HEPARIN SODIUM 1,000 UN/ML (10ML VL) ONE (07:29)
[2021-11-28] MEDS ORDERED: fentaNYL (PF) 50 MCG/ML 2 ML AMP IV ONE (07:40)
[2021-11-28] MEDS ORDERED: MIDAZOLAM 2 MG/2 ML VIAL IV ONE (07:40)
[2021-11-28] MEDS ORDERED: LIDOCAINE 1% INJ 10MG/ML (30 ML VIAL-PF) SQ ONE (07:45)
[2021-11-28] MEDS ORDERED: VERAPAMIL SYRINGE (5 MG/10 ML) INTRAARTER ONE (07:47)
[2021-11-28] MEDS: MIDAZOLAM 2 MG/2 ML VIAL IV ONE ×2 (07:54→08:00)
[2021-11-28] MEDS ORDERED: HEPARIN SODIUM 1,000 UN/ML (10ML VL) IV ONE (08:00)
[2021-11-28] MEDS ORDERED: IOPAMIDOL-370 125ML BTL INJ ONE (08:06)
[2021-11-28] MEDS ORDERED: RX INFO: IV CONTRAST WAS GIVEN 1 EACH MISC MISCELLANE PRN (08:23)
[2021-11-28] MEDS ORDERED: SODIUM CHLORIDE 0.9% 1,000 ML IV SCH (08:30)
--- NOTE | 2021-11-28 08:38 | P.CARDCATH ---
Date of Procedure: 11/28/21 Description of Procedure: Cardiac Catheterization: The patient is an 80-year-old female with known history of hypertension hyperlipidemia who has been complaining of progressive dyspnea on exertion and chest discomfort, had an abnormal MPI. Recommendations were made regarding cardiac catheterization, the risks and the complications were discussed with the patient who is in full understanding and agreement. 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 Using Xylocaine Anesthesia and Seldinger technique, a 6-Arabic sheath was introduced in the right radial artery . Subsequently, selective coronary angiography was performed using a 5-Arabic 4 bend left Jose catheter and 5 bend right Jose catheter. Multiple views of the coronary artery including hemiaxial views were obtained. The right Jose catheter was used to cross the aortic valve and LVEDP was calculated. Following that, catheter and sheath were removed. Hemostasis was obtained with deployment of TR band . There was no immediate complication. Patient was returned to room in stable condition. Of note, the patient received a total of 3000 units of intravenous heparin as well as intra-arterial verapamil. Findings: There is severe calcifications involving all the coronary arteries Left main: This is a short sized vessel, bifurcating into LAD and left circumflex, left main has no high-grade stenosis LAD: This is a large size vessel, heavily calcified, giving rise to a moderate size diagonal branch in the mid segment. The LAD is diffusely diseased with areas of stenosis up to 80-90% in the midsegment and 30-40% proximally Left circumflex: This is a nondominant vessel, giving rise to large obtuse marginal branch, the left circumflex proximally has a 95-99% stenosis, the obtuse marginal branch has a inferior segment that has a 90% stenosis at the ostium RCA: This is a dominant vessel, bifurcating into PDA and PLV, the vessel has diffuse intimal disease throughout its course. The PLV is totally occluded, severe obstructive disease involving the PDA up to 90% proximally. There is collaterals from the left system toward the right PLV. Left Ventriculogram: Not performed Hemodynamics: There was no gradient across the aortic valve , LVEDP was 25-30 mmHg Conclusion: 1. Heavily calcified coronary arteries 2. Severe triple-vessel coronary artery disease 3. Right dominance 4. Elevated LVEDP Recommendations: I have recommended to obtain a surgical consultation for possible bypass to the left circumflex, RCA and the LAD, depending on the decision further recommendations will be made. The findings and the recommendations were discussed with the patient and the family and they were in full understanding and agreement. Duration of sedation is 24 minutes.
[2021-11-28] MEDS ORDERED: METOPROLOL SUCCINATE (ER) 25 MG TAB.ER.24H PO SCH (09:00)
[2021-11-28] MEDS ORDERED: ATORVASTATIN 40 MG TAB PO SCH (09:00)
[2021-11-28] MEDS ORDERED: ISOSORBIDE MONONITRATE ER 30 MG TAB.ER.24H PO SCH (10:00)
[2021-11-28] MEDS ORDERED: ACETAMINOPHEN TAB 500 MG TAB PO ONE (10:42)
[2021-11-28 11:41] LABS: Basophils % (A) 0 %; Eosinophils # (A) 0.4 k/uL (0-0.7); Eosinophils % (A) 5 %; HCT 43.4 % (34.0-46.0); HGB 14.6 gm/dL (11.4-16.0); Lymphocytes % (A) 28 %; MCH 31.1 pg (25.0-35.0); MCHC 33.5 g/dL (31.0-37.0); MCV 92.7 fL (80.0-100.0); Mean Platelet Volume 7.4; Monocytes # (A) 0.3 k/uL (0-1.0); Monocytes % (A) 5 %; Neutrophils # (A) 4.2 k/uL (1.3-7.7); Neutrophils % (A) 60 %; Platelet Count 284 k/uL (150-450); RBC 4.68 m/uL (3.80-5.40); RDW 13.3 % (11.5-15.5); WBC 7.1 k/uL (3.8-10.6)
[2021-11-28 11:53] LABS: Partial Thromboplastin Time 26.8 sec (22.0-30.0); Prothrombin Time 10.5 sec (9.0-12.0)
[2021-11-28 12:10] LABS: ALT 25 U/L (4-34); AST 32 U/L (14-36); African American GFR (CKD) >90 (>60 ml/min/1.73 sqM); Albumin 4.1 g/dL (3.5-5.0); Alkaline Phosphatase 45 U/L (38-126); Anion Gap 12 mmol/L; Blood Urea Nitrogen 21 mg/dL (7-17); Calcium 8.9 mg/dL (8.4-10.2); Carbon Dioxide 20 mmol/L (22-30); Chloride 104 mmol/L (98-107); Glucose 104 mg/dL (74-99); Non-African American GFR(CKD) 80 (>60 ml/min/1.73 sqM); Potassium 4.3 mmol/L (3.5-5.1); Sodium 136 mmol/L (137-145); Total Bilirubin 0.7 mg/dL (0.2-1.3); Total Protein 6.9 g/dL (6.3-8.2)
--- NOTE | 2021-11-28 13:21 | XR ---
EXAMINATION TYPE: XR chest 2V DATE OF EXAM: 11/28/2021 1:16 PM COMPARISON: Chest radiographs from 04/13/2021. TECHNIQUE: XR chest 2V Frontal and lateral views of the chest. CLINICAL INDICATION:Female, 80 years old with history of PreOp Cardiac Surgery; FINDINGS: Lungs/Pleura: There is no evidence of pleural effusion, focal consolidation, or pneumothorax. Relati ve upper lung lucencies may reflect emphysema. Pulmonary vascularity: Unremarkable. Heart/mediastinum: Cardiomediastinal silhouette is enlarged and stable. Musculoskeletal: No acute osseous pathology. Other: Similar called a metallic wire is noted projected the midline neck. IMPRESSION: 1. No acute cardiopulmonary disease/process. 2. Cardiomegaly.
--- NOTE | 2021-11-28 13:23 | US ---
EXAMINATION TYPE: US carotid duplex BILAT DATE OF EXAM: 11/28/2021 COMPARISON: NONE CLINICAL HISTORY: Pre-Op Cardiac Surgery. TECHNIQUE: Carotid duplex ultrasound examination. Indirect Doppler criteria was utilized. FINDINGS: EXAM MEASUREMENTS: RIGHT: Peak Systolic Velocity (PSV) cm/sec ----- Right CCA: 43.9 ----- Right ICA: 48.2 ----- Right ECA: 80.8 ICA/CCA ratio: 1.1 RIGHT: End Diastole cm/sec ----- Right CCA: 10.0 ----- Right ICA: 18.6 ----- Right ECA: 0.0 LEFT: Peak Systolic Velocity (PSV) cm/sec ----- Left CCA: 50.0 ----- Left ICA: 59.3 ----- Left ECA: 89.7 ICA/CCA ratio: 1.2 LEFT: End Diastole cm/sec ----- Left CCA: 9.6 ----- Left ICA: 21.4 ----- Left ECA: 0.0 VERTEBRALS (direction of flow): Right Vertebral: Antegrade Left Vertebral: Antegrade Rhythm: Normal No significant stenosis and mild atherosclerotic plaque within the common carotid artery bulbs. IMPRESSION: No ultrasound evidence of hemodynamically significant carotid stenosis. Criteria for Assigning % of Stenosis / Diameter reduction (Estimation based on the indirect measurements of the internal carotid artery velocities (ICA PSV). 1. Normal (no stenosis)=ICA PSV < 125 cm/s: ratio < 2.0: ICA EDV<40 cm/s. 2. Less than 50% stenosis=ICA PSV < 125 cm/s: ratio < 2.0: ICA EDV<40 cm/s. 3. 50 to 69% stenosis=ICA PSV of 125 to 230 cm/s: ration 2.0 ? 4.0: ICA EDV 40-100 cm/s. 4. Greater than 70% stenosis to near occlusion= ICA PSV > 230 cm/s: ratio > 4.0: ICA EDV > 100 cm/s. 5. Near occlusion= ICA PSV velocities may be low or undetectable: variable ratio and ICA EDV. 6. Total occlusion=unable to detect flow.
[2021-11-28 14:01] LABS: Appearance,Urine Clear (Clear); Bilirubin,Urine Negative (Negative); Blood,Urine Negative (Negative); Color,Urine Yellow; Glucose,Urine (UA) Negative (Negative); Ketones,Urine Negative (Negative); Leukocyte Esterase,Urine Negative (Negative); Nitrite,Urine Negative (Negative); Protein,Urine Negative (Negative); Urobilinogen,Urine <2.0 mg/dL (<2.0)
[2021-11-28 14:14] LABS: Specific Gravity,Urine 1.047 (1.001-1.035)
[2021-11-28] MEDS ORDERED: ACETAMINOPHEN TAB 325 MG TAB ONE (14:28)
[2021-11-28 14:44] VITALS: BP 134/85
[2021-11-28 15:37] VITALS: PULSE 62
--- NOTE | 2021-11-28 16:27 | P.GSCN ---
History of Present Illness Consult date: 11/28/21 Reason for Consult: Triple-vessel coronary artery disease. Requesting physician: Raúl Velez History of present illness: This is an 80-year-old female patient who follows on an outpatient basis for her primary care service with Dr. Severino Solis and with Dr. Velez for her cardiology care. She has past medical history significant for hypertension, hyperlipidemia, hypothyroid, occasional urinary tract infections the last being treated around 6 weeks ago, osteoarthritis, chronic low back pain secondary to lumbar degenerative disc disease and lumbar spondylosis, history of dysphagia with previous EGD with dilation, most recently completed in May 2021, overactive bladder and a remote history of nicotine dependence in which he quit smoking in 2005. The patient reports that she has a history of feeling fatigu ed, episodes of shortness of breath at rest and with activity, pressure in her chest with cold weather, complaints of frequent acid reflex and occasional lightheadedness. She denies any recent fever, chills, nausea, vomiting, peripheral edema, orthopnea, headache, chest pain/pressure or syncope. She also reports that within the last few months her shortness of breath and feeling fatigue and lack of energy have progressed. The patient's nephew is at her bedside and reports that she is been complaining of frequent acid reflux within the last few months. Subsequently, the patient was recently seen by Dr. Velez and the patient underwent a stress test which showed evidence of stress-induced ischemia involving the lateral wall. For further evaluation. A transthoracic 2-D echocardiogram was completed which showed the left ventricle to be normal size with normal systolic function with an ejection fraction between 55 and 60%, mild left ventricular hypertrophy, intermediate diastolic dysfunction, moderate mitral valve regurgitation, mild mitral annular calcification, a trileaflet aortic valve which is moderately calcified with no aortic valve regurgitation, mild tricuspid valve regurgitation and a normal pulmonary artery systolic pressure of 33 mmHg. Due to the patient's symptoms and findings on her stress test she was recommended to undergo a cardiac catheterization which was co mpleted today. The heart catheterization demonstrated heavily calcified coronary arteries, severe triple vessel coronary artery disease with a diffusely diseased left anterior descending coronary artery with an 80-90% stenosis to the mid segment and a 30-40% stenosis proximally, a 95-99% stenosis to her proximal circumflex coronary artery, a 90% stenosis at the ostium of the obtuse marginal coronary artery, diffuse intimal disease throughout the right coronary artery with a totally occluded PLV and severe obstructive disease involving the PDA with a 90% stenosis proximally. Subsequently, due to the findings on the cardiac catheterization a consult was placed to Dr. Delroy Moyer from cardio thoracic surgery for further evaluation and treatment recommendations including myocardial revascularization surgery. Review of Systems A 14 point review of systems was completed and was negative except as mentioned in the HPI. Past Medical History Past Medical History: GERD/Reflux, GI Bleed, Hyperlipidemia, Hypertension, Osteoarthritis (OA), Thyroid Disorder Additional Past Medical History / Comment(s): increased fatigue and SOB w/ activity,HX OF DIVERTICULAR BLEED, states had 5 transfusions, bleed "caused by pain medication use." NOT ABLE TO FULLY BEND LEFT KNEE. Urinary frequency, Osteoporosis. States "scar tissue with implants.", Hiatal Hernia., states terrible heartburn & burning pain when she inhales cold air. Overactive bladder History of Any Multi-Drug Resistant Organisms: None Reported Past Surgical History: Back Surgery, Section, Hysterectomy, Joint Replacement, Orthopedic Surgery, Tonsillectomy Additional Past Surgical History / Comment(s): CERVICAL FUSION FROM C3-7. Bilateral KNEE REPLACEMENTS WITH (3 lt total knee surgeries,1 rt knee) . EGD with history of esophageal dilation. Bilateral cataract surgery. Colonoscopy. Has had epidurals for pain, and "nerve burning." Past Anesthesia/Blood Transfusion Reactions: No Reported Reaction Additional Past Anesthesia/Blood Transfusion Reaction / Comm: No problem with transfusions. Past Psychological History: No Psychological Hx Reported Smoking Status: Former smoker (Quit smoking in 2005) Past Alcohol Use History: None Reported Past Drug Use History: None Reported - Past Family History Mother Additional Family Medical History / Comment(s): Cerebral hemorrhage at age 51. Father Family Medical History: COPD Additional Family Medical History / Comment(s): Emphysema. Medications and Allergies Home Medications Medication Instructions Recorded Confirmed Type Cholecalciferol [Vitamin D3 (25 50 mcg PO DAILY 05/03/15 11/28/21 History Mcg = 1000 Iu)] Levothyroxine Sodium 25 mcg PO DAILY 10/01/19 11/28/21 History Metoprolol Succinate (ER) [Toprol 25 mg PO DAILY 10/01/19 11/28/21 History XL] Aspirin [Adult Low Dose Aspirin EC] 81 mg PO DAILY 08/11/20 11/28/21 History Ibuprofen [Motrin Ib] 200 - 400 mg PO Q8H PRN 02/09/21 11/27/21 History Pantoprazole [Protonix] 40 mg PO BID 06/22/21 11/28/21 History Sucralfate [Carafate] 1 gm PO QID 09/08/21 11/28/21 History Lidocaine 5% Patch [Lidoderm 5% 1 patch TOPICAL DAILY PRN 30 Days 09/11/21 11/27/21 Rx Patch] #30 patch Cannabidiol (Cbd) [Epidiolex] 1 dose TOPICAL DAILY PRN 11/27/21 11/27/21 History Mirabegron [Myrbetriq] 25 mg PO DAILY 11/27/21 11/28/21 History Multivit-Min/Iron/Folic/Lutein 1 each PO DAILY 11/27/21 11/28/21 History [Centrum Silver Women Tablet] Isosorbide Mononitrate ER [Imdur] 30 mg PO DAILY #90 tab 11/28/21 Rx Mupirocin 2% Oint [Bactroban 2% 1 applic NASAL BID 5 Days #22 gm 11/28/21 Rx Oint] Allergies Allergy/AdvReac Type Severity Reaction Status Date / Time nickel Allergy developes Verified 11/27/21 11:30 scar tissue Sulfa (Sulfonamide Allergy Rash/Hives Verified 11/27/21 11:30 Antibiotics) codeine AdvReac Nausea & Verified 11/27/21 11:30 Vomiting Surgical - Exam Vital Signs Temp Pulse Resp BP Pulse Ox 98.1 F 68 16 138/75 96 11/28/21 06:27 11/28/21 06:27 11/28/21 06:27 11/28/21 06:27 11/28/21 06:27 - General Laying in bed in the extended stay unit. Cooperative, and is in no acute apparent distress. well developed, well nourished, no distress, no pain, obese - Eyes PERRL, normal ocular movement, no pale, no icteric - ENT normal pinna, normal nares, normal mucosa, no hearing loss, no congestion - Neck Neck is supple, no lymphadenopathy. no masses, no bruits, trachea midline, no venous distension, no deviated trachea - Respiratory Lung sounds essentially clear throughout, few scattered crackles to bilateral bases. No wheezes or rhonchi. Respirations are symmetrical and nonlabored. - Cardiovascular Regular rhythm and rate. S1 and S2 present, negative for S3 or gallop. A stiff systolic murmur 2/6 heard best to the left sternal border. No peripheral edema. - Abdomen Abdomen is soft, nontender and nondistended. Active bowel sounds present in all 4 abdominal quadrants. No guarding or rigidity. No organomegaly appreciated. - Genitourinary Deferred - Rectum Deferred - Integumentary Skin is warm and dry. No clubbing or cyanosis is present. no rash, no growths, no abnormal pigmentation - Neurologic No focal deficits. normal coordination, normal sensation - Musculoskeletal Moves all 4 extremities with equal strength bilateral. - Psychiatric oriented to time, oriented to person, oriented to place, speech is normal, memory intact Results - Labs 11/28/21 11:20 11/28/21 11:20 - Imaging Additional studies: 2-D echocardiogram and cardiac catheterization results reviewed. Assessment and Plan Assessment: 1. Triple-vessel coronary artery disease 2. History of hypertension 3. Hyperlipidemia 4. Hypothyroid 5. History of dysphagia with recent EGD and esophageal dilation and biopsy 6. Recent urinary tract infection, treated 6 weeks ago 7. Osteoarthritis 8. Chronic low back pain 9. Remote history of nicotine dependence quit smoking in 2005 Plan: The patient was seen and examined at her bedside in the extended stay unit with her nephew present. Her chart and diagnostics were reviewed. Her case was discussed in detail with Dr. Delroy Moyer from cardiothoracic surgery area and preoperative testing and preoperative teaching has been initiated. Once the patient is able to ambulate a 5 m walk test will be completed with the patient. Once her preoperative testing has been completed and obtained an STS risk score will be calculated in discussed with the patient. Continue to maximize medical management. Medical management and other comorbidities per primary care service and Dr. Velez. More recommendations to follow based on patient's clinical course. Dr. Moyer evaluated the patient, discussed findings on the cardiac catheterization and transthoracic 2-D echocardiogram. Treatment options were discussed with the patient including myocardial revascularization surgery. The usual course of myocardial revascularization surgery was discussed with the patient, risks and benefits were discussed including the STS risk score. Knowing and understanding the risks of myocardial revascularization surgery the patient wished to proceed with the surgical option. She will be tentatively scheduled for , 12/07/2021 for myocardial revascularization surgery with left internal mammary artery, endoscopic vein harvest, exclusion of left atrial appendage and intraoperative transesophageal echocardiogram to be completed by Dr. Delroy Moyer. A 5 m walk test was also completed with the patient with time 1: 6.16 seconds, time 2: 5.69 seconds, time 3: 4.[address] Velez for this consult and we look for to working with you in the care of this patient. I have personally seen and examined the patient, performed the documentation and the assessment and plan as written. 30 minutes spent on the visit . Yfn LOPEZ
[2021-11-28] MEDS ORDERED: SUCRALFATE 1 GM TAB PO SCH (17:30)
[2021-11-28] MEDS ORDERED: PANTOPRAZOLE 40 MG TABLET PO SCH (17:30)
[2021-11-28 18:11] LABS: Chol/HDL Ratio 5.52 Ratio; LDL Cholesterol,Calculated 171.3 mg/dL (0.0-131.0)
[2021-11-28 18:19] LABS: Hepatitis A Antibody IgM Nonreactive (Nonreactive); Hepatitis B Core IgM Nonreactive (Nonreactive); Hepatitis B Surface Antigen Nonreactive (Nonreactive); Hepatitis C IgG Antibody Nonreactive (Nonreactive)
[2021-11-29] MEDS ORDERED: ASPIRIN 81 MG PO SCH (09:00)
--- NOTE | 2021-11-29 09:06 | US ---
EXAMINATION TYPE: US vein mapping BILAT DATE OF EXAM: 11/28/2021 2:59 PM COMPARISON: NONE CLINICAL HISTORY: PreOp Cardiac Surgery. SIDE PERFORMED: Bilateral TECHNIQUE: Lower extremity saphenous vein is examined and measured utilizing real time linear array sonography. DUPLEX FINDINGS: Greater Saphenous: Color flow seen Measurements in mm: Right Greater Saphenous: Groin: 7.4 x 6.7 mm High Thigh: 6.3 x 6.1 mm Mid Thigh: 3.8 x 3.5 mm Above Knee: 3.3 x 4.0 mm Knee: 3.8 x 4.4 mm Below Knee: 3.3 x 3.6 mm Mid Calf: 2.2 x 2.4 mm At Ankle: 1.5 x 1.7 mm Left Greater Saphenous: Groin: 5.8 x 6.3 mm High Thigh: 5.6 x 5.4 mm Mid Thigh: 4.0 x 4.3 mm Above Knee: 3.2 x 3.2 mm Knee: 3.8 x 3.8 mm Below Knee: 3.7 x 3.9 mm Mid Calf: 2.7 x 2.6 mm At Ankle: 1.9 x 1.9 mm IMPRESSION: 1. Bilateral GSV measurements listed above. 2. Performing surgeon to determine viability as conduit.
--- NOTE | 2021-11-29 09:07 | US ---
EXAMINATION TYPE: US arterial LE single level DATE OF EXAM: 11/28/2021 3:59 PM CLINICAL HISTORY: Ankle Brachial Index (TORITO) . Pre-op CABG. History of hypertension and hyperlipidemia. Doppler Waveforms: Right: Monophasic Left: Biphasic to monophasic Ankle-Brachial Indices: Right: 0.83 Left: 1.04 IMPRESSION: Normal TORITO values. Loss of phasicity could be technical but also could be related to dif fuse prominent calcified plaque. Consider further workup based on clinical correlation.
--- NOTE | 2021-11-30 14:56 | CA ---
Transthoracic Echo Report Name: Sandra Nichole Age: 80 Gender: F : 1940 Exam Date: 11/28/2021 15:54 Exam Location: [facility] Ht (in): 60 Wt (lb): 148 Ordering Physician: Valentino House Attending/Referring Phys: Harsh MONIQUE Resource Director Prema Valle, SUHA Procedure CPT: Indications: evaluate valve Cardiac Hx: Technical Quality: Contrast 1: Total Dose (mL): Contrast 2: Total Dose (mL): MEASUREMENTS (Male / Female) Normal Values 2D ECHO LV Diastolic Diameter PLAX 3.8 cm 4.2 - 5.9 / 3.9 - 5.3 cm LV Systolic Diameter PLAX 3.4 cm IVS Diastolic Thickness 1.3 cm 0.6 - 1.0 / 0.6 - 0.9 cm LVPW Diastolic Thickness 1.7 cm 0.6 - 1.0 / 0.6 - 0.9 cm LV Relative Wall Thickness 0.8 M-MODE Aortic Root Diameter MM 3.1 cm AV Cusp Separation MM 1.2 cm DOPPLER AV Peak Velocity 167.2 cm/s AV Peak Gradient 11.2 mmHg AV Mean Velocity 125.9 cm/s AV Mean Gradient 6.7 mmHg AV Velocity Time Integral 28.5 cm LVOT Peak Velocity 88.8 cm/s LVOT Peak Gradient 3.2 mmHg TR Peak Velocity 162.9 cm/s TR Peak Gradient 10.6 mmHg Right Ventricular Systolic Press 15.6 mmHg FINDINGS Left Ventricle Left ventricular ejection fraction is estimated at 45-50 %. Moderately increased left ventricular wall thickness. Right Ventricle Normal right ventricular size and function. Right Atrium Normal right atrial size. Left Atrium Left atrial dilatation. Mitral Valve Mitral annular calcification. Mild mitral regurgitation. Aortic Valve Aortic valve moderate sclerosis. peak gradient of 11 mmHg and a mean gradient of 7 mmHg. Tricuspid Valve Structurally normal tricuspid valve. Pulmonic Valve Structurally normal pulmonic valve. Pericardium Echo free space anterior to the right ventricle likely represents a fat pad. Aorta Normal size aortic root and proximal ascending aorta. CONCLUSIONS Left ventricular EF 45-50% Moderate LVH Mild mitral regurgitation Mild aortic stenosis Previewed by: Dr. Scot Stroud DO (Electronically Signed) Final Date: 29 November 2021 10:44
== END 2021-11-28 14:20 | disposition home or self-care (01) ==
LOC: CATHCVL 06:07
PROVIDERS: ATTEND Internal Medicine Interventional Cardiology
DX: I25.10 Atherosclerotic heart disease of native coronary artery without angina pectoris (principal); I25.84 Coronary atherosclerosis due to calcified coronary lesion; I25.82 Chronic total occlusion of coronary artery; I10 Essential (primary) hypertension; I08.3 Combined rheumatic disorders of mitral, aortic and tricuspid valves; E78.00 Pure hypercholesterolemia, unspecified; R94.39 Abnormal result of other cardiovascular function study; E78.2 Mixed hyperlipidemia; K21.9 Gastro-esophageal reflux disease without esophagitis; Z98.1 Arthrodesis status; Z20.822 Contact with and (suspected) exposure to COVID-19; M19.90 Unspecified osteoarthritis, unspecified site; R35.0 Frequency of micturition; M81.0 Age-related osteoporosis without current pathological fracture; E03.9 Hypothyroidism, unspecified; G89.29 Other chronic pain; M54.50 Low back pain, unspecified; M51.36 Other intervertebral disc degeneration, lumbar region; M47.816 Spondylosis without myelopathy or radiculopathy, lumbar region; Z98.891 History of uterine scar from previous surgery; Z87.891 Personal history of nicotine dependence; Z87.440 Personal history of urinary (tract) infections; Z96.653 Presence of artificial knee joint, bilateral; Z90.710 Acquired absence of both cervix and uterus; Z98.890 Other specified postprocedural states; Z98.42 Cataract extraction status, left eye; Z98.41 Cataract extraction status, right eye; Z82.49 Family history of ischemic heart disease and other diseases of the circulatory system; Z82.3 Family history of stroke; Z79.82 Long term (current) use of aspirin; Z79.890 Hormone replacement therapy; Z79.899 Other long term (current) drug therapy; Z88.5 Allergy status to narcotic agent; Z88.2 Allergy status to sulfonamides
CPT/HCPCS: 94150; 93306; 93458; 80061; 80053; 80074; 84443; 83735; 85025; 85610; 85730; 81003; 87070; 83036; 87635; 71046; 93970; 93922; 93880; C1769 ×3; C1894; J2250; J2001; J3010; J1644; Q9967; 86850; 86900; 86901

== ENCOUNTER 2021-12-07 05:42 | Inpatient (IN) | payer MEDICARE, BC ==
[~2021-12-07 05:42] MED LIST changes: +ALBUMIN HUMAN 25% 50 ML IV ONE; +ALBUMIN HUMAN 5% 500 ML IVPB ONE; -ALPRAZolam 0.25 MG TAB PO PRN; -ALPRAZolam 0.5 MG TAB PO PRN; +ASPIRIN 325 MG TAB PO ONE; +ATORVASTATIN 10 MG TAB PO ONE; +CALCIUM CHLORIDE 100 MG/ML 10 ML SYRINGE IV ONE; +CHLORHEXIDINE GLUCONATE 15 ML CUP MUCOUS MEM ONE; +CLEVIDIPINE BUTYRATE 25 MG in EMPTY BAG 1 BAG IV ONE; +ELECTROLYTE-A SOLUTION 1,000 ML with POTASSIUM CHLORIDE 100 MEQ, MAGNESIUM SULFATE 16 M... IV ONE; +ELECTROLYTE-A SOLUTION 1,000 ML with POTASSIUM CHLORIDE 40 MEQ, MAGNESIUM SULFATE 16 ME... IV ONE; +HEPARIN SODIUM 1,000 UN/ML (10ML VL) IV ONE; -HEPARIN SODIUM,PORCINE 10,000 UNIT in SODIUM CHLORIDE 0.9% 1,000 ML IRRIGATION PRN; -HEPARIN SODIUM,PORCINE 2,500 UNIT in SODIUM CHLORIDE 0.9% 250 ML IRRIGATION PRN; +HEPARIN SODIUM,PORCINE 5,000 UNIT in SODIUM CHLORIDE 0.9% 500 ML 500 ML IV ONE; +INSULIN REGULAR 100 UNIT in SODIUM CHLORIDE 0.9% 100 ML IV ONE; +LACTATED RINGERS 1,000 ML IV ONE; +MAGNESIUM SULFATE 16.24 MEQ in EMPTY SYRINGE 1 SYR IV ONE; +MANNITOL 25% 12.5 GM/50 ML VIAL IV ONE; +METOPROLOL TARTRATE 12.5 MG TAB PO ONE; -NITROGLYCERIN SL TABS 0.4 MG TAB SUBLINGUAL PRN; +NITROGLYCERIN-D5W PMX 25 MG/250 ML BTL IV ONE; +NITROGLYCERIN-D5W PMX 50 MG in DEXTROSE/WATER 1 250ML.BAG IV ONE; +NOREPINEPHRINE 4 MG in SODIUM CHLORIDE 0.9% 250 ML IV ONE; +PAPAVERINE 360 MG in SODIUM CHLORIDE 0.9% 90 ML IV ONE; +PHENYLEPHRINE 10 MG/ML VIAL IV ONE; +PHENYLEPHRINE 40 MG in SODIUM CHLORIDE 0.9% 250 ML IV ONE; +PROTAMINE SULFATE 10 MG/ML 25 ML VIAL IV ONE; +PROTAMINE SULFATE 250 MG in EMPTY BAG 1 BAG IV ONE; +SODIUM BICARB 8.4% 50 ML SYR (1 MEQ/ML) IV ONE; +SODIUM CHLORIDE 0.9% 1,000 ML IV ONE; -SODIUM CHLORIDE 0.9% 1,000 ML in EMPTY BAG 1 BAG IV SCH; +TRANEXAMIC ACID 2,000 MG in SODIUM CHLORIDE 0.9% 80 ML IV ONE; +ceFAZolin 1,000 MG in SODIUM CHLORIDE 0.9% IRRIGATIO 1,000 ML IRRIGATION ONE; +propofoL 1,000 MG/100 ML VIAL IV ONE
[2021-12-07 06:37] LABS: Glucose,Whole Blood 99 mg/dL (70-110)
[2021-12-07] MEDS ORDERED: MAGNESIUM SULFATE 4 MEQ/ML 10ML VIAL ONE (07:27)
[2021-12-07] MEDS ORDERED: LIDOCAINE 2% SYG (PF) 100 MG/5 ML ONE (07:27)
[2021-12-07] MEDS ORDERED: MIDAZOLAM HCL 10 MG/10 ML VIAL ONE (07:27)
[2021-12-07] MEDS ORDERED: TRANEXAMIC ACID IN NACL,ISO-OS 1,000 MG/100 ML BAG ONE (07:27)
[2021-12-07] MEDS ORDERED: ATROPINE SULFATE 0.1 MG/ML 10ML SYRINGE ONE (07:27)
[2021-12-07] MEDS ORDERED: ALBUMIN HUMAN 5% (12.5gm) 250 ML BOTTLE IVPB ONE (07:27)
[2021-12-07] MEDS ORDERED: ePHEDrine 50 MG/ML 1 ML VIAL ONE (07:27)
[2021-12-07] MEDS ORDERED: HEPARIN SODIUM,PORCINE 10,000 UNIT/ML 1 ML VIAL ONE (07:27)
[2021-12-07] MEDS ORDERED: VECURONIUM 10 MG VIAL IV ONE (07:27)
[2021-12-07] MEDS ORDERED: PROPOFOL 10 MG/ML 20 ML VIAL IV ONE (07:27)
[2021-12-07] MEDS ORDERED: EPINEPHrine 10 ML SYRINGE (0.1 MG/ML) ONE (07:27)
[2021-12-07] MEDS ORDERED: CALCIUM CHLORIDE 100 MG/ML 10 ML SYRINGE ONE (07:27)
[2021-12-07] MEDS ORDERED: INSULIN REGULAR 100 UNIT/ML VIAL (IV) ONE (07:27)
[2021-12-07] MEDS ORDERED: NITROGLYCERIN-D5W PMX 50 MG/250 ML BOTTLE IV ONE (07:27)
[2021-12-07] MEDS ORDERED: fentaNYL (PF) 50 MCG/ML 50 ML VIAL ONE (07:27)
[2021-12-07] MEDS ORDERED: ELECTROLYTE-R (PH 7.4) 1,000 ML IV.SOLN IV ONE (07:27)
[2021-12-07] MEDS ORDERED: SODIUM CHLORIDE 0.9% IRRIG 1,000 ML BTL IRRIGATION ONE (07:27)
[2021-12-07 08:27] LABS: ABG Base Excess 2.2 mmol/L; ABG Glucose Whole Blood 113 mg/dL (75-99); ABG HCO3 26 mmol/L (21-25); ABG Hematocrit 38 % (34.0-46.0); ABG Ionized Calcium 4.8 mg/dL (4.5-5.3); ABG Lactic Acid Whole Blood 0.8 mmol/L (0.5-1.6); ABG Oxygen Saturation 99.6 % (94-97); ABG PCO2 37 mmHg (35-45); ABG PH 7.46 (7.35-7.45); ABG PO2 263 mmHg (83-108); ABG Potassium Whole Blood 3.7 mmol/L (3.4-4.5); ABG Sodium Whole Blood 141 mmol/L (135-146); ABG TCO2 27 mmol/L (19-24)
[2021-12-07] MEDS ORDERED: ceFAZolin 1,000 MG in SODIUM CHLORIDE 0.9% 1,000 ML IRRIGATION ONE (09:46)
[2021-12-07] MEDS ORDERED: PAPAVERINE 360 MG in SODIUM CHLORIDE 0.9% 90 ML IV ONE (09:46)
[2021-12-07] MEDS ORDERED: SODIUM CHLORIDE 0.9% 500 ML 500 ML with HEPARIN SODIUM,PORCINE 5,000 UNIT IV ONE ×2 (09:46)
[2021-12-07 10:19] LABS: ABG Base Excess 0.1 mmol/L; ABG Glucose Whole Blood 159 mg/dL (75-99); ABG HCO3 25 mmol/L (21-25); ABG Hematocrit 34 % (34.0-46.0); ABG Ionized Calcium 4.8 mg/dL (4.5-5.3); ABG Lactic Acid Whole Blood 1.4 mmol/L (0.5-1.6); ABG Oxygen Saturation 99.6 % (94-97); ABG PCO2 42 mmHg (35-45); ABG PH 7.39 (7.35-7.45); ABG PO2 274 mmHg (83-108); ABG Sodium Whole Blood 140 mmol/L (135-146); ABG TCO2 27 mmol/L (19-24)
[2021-12-07 10:53] LABS: ABG Base Excess -4.2 mmol/L; ABG Glucose Whole Blood 124 mg/dL (75-99); ABG HCO3 20 mmol/L (21-25); ABG Ionized Calcium 3.7 mg/dL (4.5-5.3); ABG Lactic Acid Whole Blood 1.5 mmol/L (0.5-1.6); ABG PCO2 34 mmHg (35-45); ABG PH 7.39 (7.35-7.45); ABG Potassium Whole Blood 3.6 mmol/L (3.4-4.5); ABG Sodium Whole Blood 133 mmol/L (135-146); ABG TCO2 21 mmol/L (19-24)
[2021-12-07 11:34] LABS: ABG Base Excess 2.2 mmol/L; ABG Glucose Whole Blood 148 mg/dL (75-99); ABG HCO3 27 mmol/L (21-25); ABG Ionized Calcium 4.1 mg/dL (4.5-5.3); ABG Lactic Acid Whole Blood 1.9 mmol/L (0.5-1.6); ABG Oxygen Saturation 99.9 % (94-97); ABG PCO2 41 mmHg (35-45); ABG PH 7.42 (7.35-7.45); ABG PO2 356 mmHg (83-108); ABG Potassium Whole Blood 4.4 mmol/L (3.4-4.5); ABG Sodium Whole Blood 138 mmol/L (135-146); ABG TCO2 28 mmol/L (19-24)
[2021-12-07 12:12] LABS: ABG Base Excess 1.9 mmol/L; ABG Glucose Whole Blood 164 mg/dL (75-99); ABG HCO3 26 mmol/L (21-25); ABG Ionized Calcium 3.9 mg/dL (4.5-5.3); ABG Lactic Acid Whole Blood 1.8 mmol/L (0.5-1.6); ABG Oxygen Saturation 99.9 % (94-97); ABG PCO2 39 mmHg (35-45); ABG PH 7.44 (7.35-7.45); ABG PO2 373 mmHg (83-108); ABG Potassium Whole Blood 4.3 mmol/L (3.4-4.5); ABG Sodium Whole Blood 139 mmol/L (135-146); ABG TCO2 28 mmol/L (19-24)
[2021-12-07 12:52] LABS: ABG Glucose Whole Blood 148 mg/dL (75-99); ABG HCO3 26 mmol/L (21-25); ABG Ionized Calcium 3.9 mg/dL (4.5-5.3); ABG Oxygen Saturation 99.7 % (94-97); ABG PCO2 42 mmHg (35-45); ABG PO2 333 mmHg (83-108); ABG Potassium Whole Blood 4.2 mmol/L (3.4-4.5); ABG Sodium Whole Blood 140 mmol/L (135-146); ABG TCO2 27 mmol/L (19-24)
[2021-12-07 13:59] LABS: ABG Base Excess -4.1 mmol/L; ABG Glucose Whole Blood 183 mg/dL (75-99); ABG HCO3 22 mmol/L (21-25); ABG Ionized Calcium 5.3 mg/dL (4.5-5.3); ABG Oxygen Saturation 99.6 % (94-97); ABG PCO2 41 mmHg (35-45); ABG PH 7.33 (7.35-7.45); ABG PO2 389 mmHg (83-108); ABG Potassium Whole Blood 3.9 mmol/L (3.4-4.5); ABG Sodium Whole Blood 140 mmol/L (135-146); ABG TCO2 23 mmol/L (19-24)
[2021-12-07 14:40] LABS: ABG Hematocrit 23 % (34.0-46.0)
[2021-12-07 14:40] LABS: ABG Hematocrit 22 % (34.0-46.0); ABG PO2 >420 mmHg (83-108)
[2021-12-07 14:41] LABS: ABG Hematocrit 20 % (34.0-46.0)
[2021-12-07 14:42] LABS: ABG Hematocrit 21 % (34.0-46.0); ABG Lactic Acid Whole Blood 2.4 mmol/L (0.5-1.6)
[2021-12-07 14:43] LABS: ABG Hematocrit 24 % (34.0-46.0); ABG Lactic Acid Whole Blood 4.6 mmol/L (0.5-1.6)
[2021-12-07] MEDS ORDERED: NOREPINEPHRINE 4 MG in SODIUM CHLORIDE 0.9% 250 ML IV SCH (15:15)
[2021-12-07] MEDS ORDERED: DEXMEDETOMIDINE/0.9% NACL(PMX) 400 MCG in EMPTY BAG 1 BAG IV SCH (15:31)
[2021-12-07] MEDS ORDERED: CALCIUM GLUCONATE IN NACL 2 GM in SALINE 1 100ML.BAG IVPB PRN (15:31)
[2021-12-07] MEDS ORDERED: Magnesium Replacement Protocol 1 EACH MISC MISCELLANE PRN (15:31)
[2021-12-07] MEDS ORDERED: NITROGLYCERIN-D5W PMX 50 MG in DEXTROSE/WATER 1 250ML.BAG IV SCH (15:31)
[2021-12-07] MEDS ORDERED: DEXTROSE 50% SYRINGE 50 ML IVP PRN ×2 (15:31)
[2021-12-07] MEDS ORDERED: Potassium Replacement Protocol 1 EACH MISC MISCELLANE PRN (15:31)
[2021-12-07] MEDS ORDERED: MORPHINE SULFATE 2 MG/ML SYRINGE IVP PRN (15:31)
[2021-12-07] MEDS ORDERED: DEXTROSE 5% IN WATER 100 ML with AMIODARONE 150 MG IV PRN (15:31)
[2021-12-07] MEDS ORDERED: BENZOCAINE/MENTHOL LOZENG 1 EACH LOZENGE MUCOUS MEM PRN (15:31)
[2021-12-07] MEDS ORDERED: IPRATROPIUM-ALBUTEROL 3 ML NEB INHALATION PRN (15:31)
[2021-12-07 15:38] LABS: Glucose,Whole Blood 129 mg/dL (70-110)
[2021-12-07] MEDS ORDERED: ALBUMIN HUMAN 5% 250 ML IVPB ONE (15:43)
[2021-12-07 15:50] LABS: Basophils % (A) 0 %; Eosinophils % (A) 1 %; HCT 27.3 % (34.0-46.0); Lymphocytes # (A) 0.7 k/uL (1.0-4.8); Lymphocytes % (A) 10 %; MCH 29.8 pg (25.0-35.0); MCHC 31.5 g/dL (31.0-37.0); MCV 94.6 fL (80.0-100.0); Mean Platelet Volume 7.7; Monocytes # (A) 0.3 k/uL (0-1.0); Monocytes % (A) 4 %; Neutrophils # (A) 5.3 k/uL (1.3-7.7); Neutrophils % (A) 84 %; RBC 2.89 m/uL (3.80-5.40); RDW 12.9 % (11.5-15.5); WBC 6.3 k/uL (3.8-10.6)
--- NOTE | 2021-12-07 15:57 | XR ---
EXAMINATION TYPE: XR chest 1V portable DATE OF EXAM: 12/07/2021 Comparison: 11/28/2021 Clinical History: 80-year-old female Post Operative Cardiac Surgery Findings: ET tube tip 2.8 cm from the rafa. Some surgical wire is present just above the thoracic inlet along the midline. Mediastinal drains. Epicardial pacer leads. NG tube courses below the diaphragm. Right IJ Shell-King catheter tip in the proximal right main pulmonary artery. The small left pleural effusio n. Mild interstitial prominence. Median sternotomy wires and post-CABG clips. Possible right-sided pl eural catheter. No appreciable pneumothorax. Impression: There may be mild pulmonary vascular congestion and a small left pleural effusion. Post-CABG changes.
[2021-12-07 15:59] LABS: INR 1.2 (<1.2); Partial Thromboplastin Time 36.3 sec (22.0-30.0); Prothrombin Time 12.4 sec (9.0-12.0)
[2021-12-07] MEDS ORDERED: IPRATROPIUM-ALBUTEROL 3 ML NEB INHALATION SCH (16:00)
[2021-12-07 16:08] LABS: ALT 17 U/L (4-34); AST 48 U/L (14-36); African American GFR (CKD) 82 (>60 ml/min/1.73 sqM); Albumin 2.5 g/dL (3.5-5.0); Alkaline Phosphatase <20 U/L (38-126); Anion Gap 10 mmol/L; Blood Urea Nitrogen 20 mg/dL (7-17); Calcium 8.8 mg/dL (8.4-10.2); Carbon Dioxide 22 mmol/L (22-30); Chloride 105 mmol/L (98-107); Glucose 117 mg/dL (74-99); Magnesium 2.3 mg/dL (1.6-2.3); Non-African American GFR(CKD) 71 (>60 ml/min/1.73 sqM); Sodium 137 mmol/L (137-145); Total Bilirubin 0.6 mg/dL (0.2-1.3); Total Protein 3.9 g/dL (6.3-8.2)
[2021-12-07] MEDS ORDERED: INSULIN REGULAR 100 UNIT in SODIUM CHLORIDE 0.9% 100 ML IV SCH (16:15)
[2021-12-07 16:19] LABS: ABG Base Excess -1.9 mmol/L; ABG HCO3 24 mmol/L (21-25); ABG Hematocrit 29 % (34.0-46.0); ABG Oxygen Saturation 99.9 % (94-97); ABG PCO2 49 mmHg (35-45); ABG PH 7.31 (7.35-7.45); ABG PO2 302 mmHg (83-108); ABG TCO2 26 mmol/L (19-24); Allen Test Performed? Yes
[2021-12-07 16:20] LABS: HGB 8.6 gm/dL (11.4-16.0); Platelet Count 114 k/uL (150-450)
[2021-12-07] MEDS: SODIUM CHLORIDE 0.9% 1,000 ML IV SCH (16:26)
[2021-12-07] MEDS: CLEVIDIPINE BUTYRATE 25 MG in EMPTY BAG 1 BAG IV SCH ×2 (16:26→19:14)
[2021-12-07] MEDS: MILRINONE-D5W PMX 20 MG in DEXTROSE/WATER 1 100ML.BAG IV SCH (16:27)
[2021-12-07] MEDS ORDERED: AMIODARONE 360 MG in DEXTROSE 5% IN WATER 200 ML IV ONE ×2 (16:30)
[2021-12-07 17:10] LABS: Glucose,Whole Blood 151 mg/dL (70-110)
[2021-12-07 17:57] LABS: Basophils % (A) 0 %; Eosinophils # (A) 0.1 k/uL (0-0.7); Eosinophils % (A) 1 %; HCT 33.6 % (34.0-46.0); HGB 11.1 gm/dL (11.4-16.0); Lymphocytes # (A) 0.8 k/uL (1.0-4.8); Lymphocytes % (A) 11 %; MCH 31.3 pg (25.0-35.0); MCHC 33.1 g/dL (31.0-37.0); MCV 94.8 fL (80.0-100.0); Mean Platelet Volume 7.2; Monocytes # (A) 0.3 k/uL (0-1.0); Monocytes % (A) 4 %; Neutrophils # (A) 6.3 k/uL (1.3-7.7); Neutrophils % (A) 83 %; Platelet Count 164 k/uL (150-450); RBC 3.55 m/uL (3.80-5.40); RDW 13.4 % (11.5-15.5); WBC 7.5 k/uL (3.8-10.6)
[2021-12-07 18:05] LABS: Glucose,Whole Blood 199 mg/dL (70-110)
[2021-12-07] MEDS: ACETAMINOPHEN IV (For NPO) 1,000 MG in EMPTY BAG 1 BAG IVPB SCH ×2 (18:33→23:30)
--- NOTE | 2021-12-07 18:41 | P.CNPUL ---
History of Present Illness Consult date: 12/07/21 Requesting physician: Delroy Moyer Reason for consult: other (Status post CABG) Chief complaint: Triple-vessel coronary artery disease History of present illness: This is an 80-year-old female with known history of hypertension and dyslipidemia patient has been developing dyspnea on exertion and chest discomfort. On 11/28, patient underwent cardiac catheterization, and she was found to have severe triple-vessel coronary artery disease, a right dominance, elevated left ventricular end-diastolic pressure. Patient was referred to surgery. Patient was seen by Samra, today the patient underwent myocardial revascularization. Postoperatively patient was kept on mechanical ventilation, and I was asked to see her on consultation. Presently the patient is in the ICU, she is on assist control rate of 16 volume 350 FiO2 50% and PEEP of 5 patient is on multiple drips including amiodarone 1 mg/m, nitroglycerin, propofol 50 mcg/m, milrinone, 0.2 mcg/kg/m, Cleviprex at 4 mg/h insulin at 2 units per hour. Patient has a cardiac output of 4.9 and cardiac index of 2.9. Chest x-ray showed small left pleural effusion with expected postoperative changes secondary to CABG. Review of Systems ROS unobtainable: due to endotracheal tube Past Medical History Past Medical History: GERD/Reflux, GI Bleed, Hyperlipidemia, Hypertension, Osteoarthritis (OA), Thyroid Disorder Additional Past Medical History / Comment(s): increased fatigue and SOB w/ activity,HX OF DIVERTICULAR BLEED, states had 5 transfusions, bleed "caused by pain medication use." NOT ABLE TO FULLY BEND LEFT KNEE. Urinary frequency, Osteoporosis. States "scar tissue with implants.", Hiatal Hernia., states terrible heartburn & burning pain when she inhales cold air. History of Any Multi-Drug Resistant Organisms: None Reported Past Surgical History: Back Surgery, Section, Heart Catheterization, Hysterectomy, Joint Replacement, Orthopedic Surgery, Tonsillectomy Additional Past Surgical History / Comment(s): CERVICAL FUSION FROM C3-7. Bilateral KNEE REPLACEMENTS WITH (3 lt total knee surgeries,1 rt knee) . EGD. Bilateral cataract surgery. Colonoscopy. Has had epidurals for pain, and "nerve burning." Past Anesthesia/Blood Transfusion Reactions: No Reported Reaction Additional Past Anesthesia/Blood Transfusion Reaction / Comment(s): No problem with transfusions. Smoking Status: Former smoker - Past Family History Mother Additional Family Medical History / Comment(s): Cerebral hemorrhage at age 51. Father Family Medical History: COPD Additional Family Medical History / Comment(s): Emphysema. Medications and Allergies Home Medications Medication Instructions Recorded Confirmed Type Cholecalciferol [Vitamin D3 (25 50 mcg PO DAILY 05/03/15 12/07/21 History Mcg = 1000 Iu)] Levothyroxine Sodium 25 mcg PO DAILY 10/01/19 12/07/21 History Metoprolol Succinate (ER) [Toprol 25 mg PO DAILY 10/01/19 12/07/21 History XL] Aspirin [Adult Low Dose Aspirin EC] 81 mg PO DAILY 08/11/20 12/07/21 History Ibuprofen [Motrin Ib] 200 - 400 mg PO Q8H PRN 02/09/21 12/07/21 History Pantoprazole [Protonix] 40 mg PO BID 06/22/21 12/07/21 History Sucralfate [Carafate] 1 gm PO QID 09/08/21 12/07/21 History Lidocaine 5% Patch [Lidoderm 5% 1 patch TOPICAL DAILY PRN 30 Days 09/11/21 12/07/21 Rx Patch] #30 patch Cannabidiol (Cbd) [Epidiolex] 1 dose TOPICAL DAILY PRN 11/27/21 12/07/21 History Mirabegron [Myrbetriq] 25 mg PO DAILY 11/27/21 12/07/21 History Multivit-Min/Iron/Folic/Lutein 1 each PO DAILY 11/27/21 12/07/21 History [Centrum Silver Women Tablet] Isosorbide Mononitrate ER [Imdur] 30 mg PO DAILY #90 tab 11/28/21 12/07/21 Rx Mupirocin 2% Oint [Bactroban 2% 1 applic NASAL BID 5 Days #22 gm 11/28/21 12/07/21 Rx Oint] Allergies Allergy/AdvReac Type Severity Reaction Status Date / Time nickel Allergy developes Verified 12/07/21 06:08 scar tissue Sulfa (Sulfonamide Allergy Rash/Hives Verified 12/07/21 06:08 Antibiotics) codeine AdvReac Nausea & Verified 12/07/21 06:08 Vomiting Physical Exam Vitals: Vital Signs Temp Pulse Pulse Resp BP BP Pulse Ox 12/07/21 18:15 103 H 11 L 95 12/07/21 18:00 104 H 17 95 12/07/21 17:45 101 H 16 94 L 12/07/21 17:30 101 H 13 94 L 12/07/21 17:15 102 H 13 95 12/07/21 17:00 103 H 16 95 12/07/21 16:45 102 H 13 95 12/07/21 16:42 103 H 12/07/21 16:32 105 H 12/07/21 16:30 104 H 16 12/07/21 16:28 12/07/21 16:15 106 H 11 L 98 12/07/21 16:00 106 H 14 99 12/07/21 15:45 103 H 19 98 12/07/21 15:30 95.2 F L 108 H 19 99 12/07/21 15:23 28 H 12/07/21 15:22 12/07/21 06:03 97.4 F L 89 18 142/86 145/95 96 FiO2 12/07/21 18:15 12/07/21 18:00 12/07/21 17:45 12/07/21 17:30 12/07/21 17:15 12/07/21 17:00 50 12/07/21 16:45 12/07/21 16:42 12/07/21 16:32 12/07/21 16:30 12/07/21 16:28 50 12/07/21 16:15 12/07/21 16:00 12/07/21 15:45 12/07/21 15:30 100 12/07/21 15:23 12/07/21 15:22 100 12/07/21 06:03 Intake and Output 12/07/21 12/07/21 12/07/21 06:59 14:59 22:59 Intake Total 200 3 323.200 Output Total 2200 1300 Balance 200 -2197 -976.800 Intake: IV 200 3 58 cardiac output 40 pressure bags 18 Intake, IV Titration 265.200 Amount ACETAMINOPHEN IV (For NPO 100 ) 1,000 mg In Empty Bag 1 bag @ 400 mls/hr IVPB Q6HR [facility] Rx#:[id number] Clevidipine Butyrate 25 15.200 mg In Empty Bag 1 bag @ 1 MG/HR 2 mls/hr IV .Q24H [facility] Rx#:[id number] Sodium Chloride 0.9% 1, 100 000 ml @ 50 mls/hr IV . Q20H [facility] Rx#:[id number] ceFAZolin 2 gm In Sodium 50 Chloride 0.9% 50 ml @ 100 mls/hr IVPB Q8HR [facility] Rx# :[id number] Output: Chest Tube Drainage 350 left pleural 120 mediastinal x2 165 right pleural 65 Urine 700 950 Estimated Blood Loss 1500 Other: Weight 67.5 kg ABP, PAP, CO, CI - Last 8 Hours Arterial Blood Pressure 134/63 Arterial Blood Pressure 134/62 Arterial Blood Pressure 123/59 Arterial Blood Pressure 120/56 Arterial Blood Pressure 132/60 Arterial Blood Pressure 135/61 Arterial Blood Pressure 98/50 Arterial Blood Pressure 162/70 Arterial Blood Pressure 147/66 Arterial Blood Pressure 101/44 Arterial Blood Pressure 152/68 Pulmonary Artery Pressure 31/21 Pulmonary Artery Pressure 32/20 Pulmonary Artery Pressure 30/19 Pulmonary Artery Pressure 32/18 Pulmonary Artery Pressure 31/20 Pulmonary Artery Pressure 33/21 Pulmonary Artery Pressure 31/19 Pulmonary Artery Pressure 34/21 Pulmonary Artery Pressure 33/5 Pulmonary Artery Pressure 31/21 Pulmonary Artery Pressure 29/17 Cardiac Output 4.8 Cardiac Output 4.6 Cardiac Output 4.6 Cardiac Output 4.6 Cardiac Output 4.6 Cardiac Output 5.2 Cardiac Output 5.2 Cardiac Output 5.2 Cardiac Output 5 Cardiac Output 5 Cardiac Output 5 Cardiac Output 5 Cardiac Index 3 Cardiac Index 2.9 Cardiac Index 2.9 Cardiac Index 2.9 Cardiac Index 2.9 Cardiac Index 3.3 Cardiac Index 3.3 Cardiac Index 3.3 Cardiac Index 3 Cardiac Index 3 Cardiac Index 3 Cardiac Index 3 Physical Exam: Revealed 80-year-old female in no distress intubated mechanically ventilated. Head: Atraumatic, normocephalic. Endotracheal tube and orogastric tube are intact. HEENT:[Neck is supple.] [No neck masses.] [No thyromegaly.] [No JVD.] Chest: Symmetrical chest expansion, diminished breath sounds at the bases no rhonchi no wheezes Cardiac Exam: Distant S1 and S2, no S3 gallop, positive pericardial rub. Abdomen: [Soft, nontender, no megaly, no rebound, no guarding, normal bowel sounds.] Extremities: [No clubbing, no edema, no cyanosis.] Neurological Exam: [Cannot assess patient is sedated psychiatric: Cannot assess patient is sedated. Results - Laboratory Findings CBC and BMP: 12/07/21 17:09 12/07/21 15:36 ABG ABG pH 7.31 (7.35-7.45) L 12/07/21 16:15 ABG pCO2 49 mmHg (35-45) H 12/07/21 16:15 ABG pO2 302 mmHg (83-108) H 12/07/21 16:15 ABG O2 Saturation 99.9 % (94-97) H 12/07/21 16:15 PT/INR, D-dimer PT 12.4 sec (9.0-12.0) H 12/07/21 15:36 INR 1.2 (<1.2) H 12/07/21 15:36 Abnormal lab findings: Abnormal Labs 11/28/21 12/07/21 12/07/21 15:30 08:30 10:22 RBC Hgb Hct Plt Count Lymphocytes # PT INR APTT ABG pH 7.46 H ABG pCO2 ABG pO2 263 H 274 H ABG HCO3 26 H ABG Total CO2 27 H 27 H ABG O2 Saturation 99.6 H 99.6 H ABG Hematocrit ABG Sodium ABG Ionized Calcium ABG Glucose 113 H 159 H ABG Lactic Acid Hemoglobin 11.1 L BUN Glucose POC Glucose (mg/dL) AST Alkaline Phosphatase Total Protein Albumin Arterial Blood Glucose 113 H 159 H Crossmatch See Detail 12/07/21 12/07/21 12/07/21 10:56 11:37 12:15 RBC Hgb Hct Plt Count Lymphocytes # PT INR APTT ABG pH ABG pCO2 34 L ABG pO2 >420 H 356 H 373 H ABG HCO3 20 L 27 H 26 H ABG Total CO2 28 H 28 H ABG O2 Saturation 100.0 H 99.9 H 99.9 H ABG Hematocrit 22 L 23 L 20 L* ABG Sodium 133 L ABG Ionized Calcium 3.7 L 4.1 L 3.9 L ABG Glucose 124 H 148 H 164 H ABG Lactic Acid 1.9 H 1.8 H Hemoglobin 7.3 L 7.5 L 6.7 L* BUN Glucose POC Glucose (mg/dL) AST Alkaline Phosphatase Total Protein Albumin Arterial Blood Glucose 124 H 148 H 164 H Crossmatch 12/07/21 12/07/21 12/07/21 12:55 14:02 15:35 RBC Hgb Hct Plt Count Lymphocytes # PT INR APTT ABG pH 7.33 L ABG pCO2 ABG pO2 333 H 389 H ABG HCO3 26 H ABG Total CO2 27 H ABG O2 Saturation 99.7 H 99.6 H ABG Hematocrit 21 L 24 L ABG Sodium ABG Ionized Calcium 3.9 L ABG Glucose 148 H 183 H ABG Lactic Acid 2.4 H* 4.6 H* Hemoglobin 6.8 L* 7.7 L BUN Glucose POC Glucose (mg/dL) 129 H AST Alkaline Phosphatase Total Protein Albumin Arterial Blood Glucose 148 H 183 H Crossmatch 12/07/21 12/07/21 12/07/21 15:36 15:36 15:36 RBC 2.89 L Hgb 8.6 L D Hct 27.3 L Plt Count 114 L D Lymphocytes # 0.7 L PT 12.4 H INR 1.2 H APTT 36.3 H ABG pH ABG pCO2 ABG pO2 ABG HCO3 ABG Total CO2 ABG O2 Saturation ABG Hematocrit ABG Sodium ABG Ionized Calcium ABG Glucose ABG Lactic Acid Hemoglobin BUN 20 H Glucose 117 H POC Glucose (mg/dL) AST 48 H Alkaline Phosphatase <20 L Total Protein 3.9 L Albumin 2.5 L Arterial Blood Glucose Crossmatch 12/07/21 12/07/21 12/07/21 16:15 17:09 17:09 RBC 3.55 L Hgb 11.1 L Hct 33.6 L Plt Count Lymphocytes # 0.8 L PT INR APTT ABG pH 7.31 L ABG pCO2 49 H ABG pO2 302 H ABG HCO3 ABG Total CO2 26 H ABG O2 Saturation 99.9 H ABG Hematocrit 29 L ABG Sodium ABG Ionized Calcium ABG Glucose ABG Lactic Acid Hemoglobin 9.4 L BUN Glucose POC Glucose (mg/dL) 151 H AST Alkaline Phosphatase Total Protein Albumin Arterial Blood Glucose Crossmatch 12/07/21 18:04 RBC Hgb Hct Plt Count Lymphocytes # PT INR APTT ABG pH ABG pCO2 ABG pO2 ABG HCO3 ABG Total CO2 ABG O2 Saturation ABG Hematocrit ABG Sodium ABG Ionized Calcium ABG Glucose ABG Lactic Acid Hemoglobin BUN Glucose POC Glucose (mg/dL) 199 H AST Alkaline Phosphatase Total Protein Albumin Arterial Blood Glucose Crossmatch - Diagnostic Findings Chest x-ray: image reviewed (As noted in HPI) Assessment and Plan Assessment: Impression: Status post CABG for triple vessel coronary artery disease, postoperative day #0 Benign essential hypertension Degenerative joint disease History of GI bleeding History of GERD History of hypothyroidism History of overactive bladder Chronic low back pain Remote smoking history quit smoking in 2005 Recommendation: Continue ventilatory support Continue hemodynamic support Continue GI and DVT prophylaxis Continue insulin Continue updrafts Continue propofol Continue milrinone Plan to wean and extubate in the next few hours. We'll continue to follow. Time with Patient: Greater than 30
[2021-12-07 19:03] LABS: Glucose,Whole Blood 198 mg/dL (70-110)
[2021-12-07 19:42] LABS: Glucose,Whole Blood 212 mg/dL (70-110)
[2021-12-07 19:51] LABS: Basophils % (A) 0 %; Eosinophils % (A) 0 %; HCT 34.9 % (34.0-46.0); HGB 11.6 gm/dL (11.4-16.0); Lymphocytes # (A) 1.1 k/uL (1.0-4.8); Lymphocytes % (A) 10 %; MCH 31.2 pg (25.0-35.0); MCHC 33.2 g/dL (31.0-37.0); MCV 94.1 fL (80.0-100.0); Mean Platelet Volume 7.3; Monocytes # (A) 0.4 k/uL (0-1.0); Monocytes % (A) 3 %; Neutrophils # (A) 8.8 k/uL (1.3-7.7); Neutrophils % (A) 85 %; Platelet Count 199 k/uL (150-450); RBC 3.71 m/uL (3.80-5.40); WBC 10.3 k/uL (3.8-10.6)
[2021-12-07] MEDS: IPRATROPIUM-ALBUTEROL 3 ML NEB INHALATION SCH (19:52)
[2021-12-07 20:53] LABS: Glucose,Whole Blood 210 mg/dL (70-110)
[2021-12-07 20:58] LABS: ABG Base Excess -2.2 mmol/L; ABG HCO3 23 mmol/L (21-25); ABG Hematocrit 33 % (34.0-46.0); ABG Oxygen Saturation 97.9 % (94-97); ABG PCO2 39 mmHg (35-45); ABG PH 7.38 (7.35-7.45); ABG PO2 97 mmHg (83-108); ABG TCO2 24 mmol/L (19-24); Allen Test Performed? Yes
[2021-12-07] MEDS: PANTOPRAZOLE 40 MG/10 ML VIAL IVP SCH (21:23)
[2021-12-07] MEDS ORDERED: METOPROLOL TARTRATE 12.5 MG TAB PO STA (21:31)
--- NOTE | 2021-12-07 21:36 | OP ---
OPERATIVE REPORT ASSISTANTS: [employer] and Saravanan Curtis, Nurse Practitioner. PREOPERATIVE DIAGNOSES: Triple-vessel coronary artery disease, preserved systolic function, hypertension, hyperlipidemia, history of esophageal stricture with serial dilatation. POSTOPERATIVE DIAGNOSES: Triple-vessel coronary artery disease, preserved systolic function, hypertension, hyperlipidemia, history of esophageal stricture with serial dilatation with diffuse calcific coronary artery disease. PROCEDURES PERFORMED: 1. Quadruple coronary artery bypass grafting using the left internal mammary artery to the left anterior descending artery, reverse saphenous vein graft from the aorta to the first obtuse marginal artery, reverse saphenous vein graft from the previous vein graft and anastomosed to the diagonal artery, reverse saphenous vein graft from the aorta to the posterior descending artery. 2. Exclusion of the left atrial appendage using a 35 mm AtriClip. 3. Endoscopic harvesting of the left greater saphenous vein. 4. Intraoperative graft flow measurements using the Clusterizeim system. 5. Intraoperative transesophageal echocardiogram and epiaortic scanning. INDICATIONS FOR PROCEDURE: The patient is an 80-year-old lady with the above comorbidities, complaining of epigastric pain as well as dyspnea on exertion. Workup showed essentially preserved systolic function and evidence of triple-vessel coronary artery disease with a totally occluded collateralized right coronary artery. There was evidence of diffuse calcific disease. No history of heart failure. The STS risk was discussed with her and she will be brought in today for bypass surgery. We will be checking the mitral valve one more time with transesophageal echocardiogram. DESCRIPTION OF PROCEDURE: The patient in supine position. The right internal jugular [place]-King catheter and a right radial arterial line were placed. The patient had normal PA pressure and good cardiac index. Subsequently general endotracheal anesthesia was induced uneventfully. A Savage catheter was inserted. The chest, abdomen, and both lower extremities were prepped and draped using ChloraPrep. Ioban was used to cover the skin. Transesophageal echocardiogram probe was inserted without difficulty gently and we intentionally avoided obtaining transgastric views in view of the history of esophageal stricture. The patient has left ventricular hypertrophy. However, systolic function is preserved. Mild mitral valve regurgitation. A midline sternotomy was performed and no bone wax was used. The bone was moderately osteoporotic. The left hemisternum was elevated and left internal mammary artery was harvested in a somewhat skeletonized fashion. The left pleura was intentionally opened in this process and was drained with a 19-Cypriot Avel drain. There was a breach in the right pleura, which was also drained with a 19-Cypriot Avel drain. The patient was given 5000 units of heparin and the mammary artery was double clipped distally and transected and had an excellent pulsatile flow in it and was around 1.5 mm in diameter. In the same setting, the left greater saphenous vein was harvested endoscopically from groin to above ankle level. The leg incisions were closed over a drain. The vein was prepared and appeared to be of reasonable quality around 4 mm in diameter at the segment between the thigh and just below knee. After systemic heparinization and after placement of respective pledgeted pursestring, aortic cannulation in the proximal arch with a 21-Cypriot soft flow cannula and venous cannulation with a 3-stage 29-Cypriot cannula inserted via the right atrial appendage was performed. Antegrade as well as retrograde cardioplegia catheter were placed. Cardioplegia bypass was initiated with the heart empty and beating, we looked at the target. The patient had diffuse calcific coronary artery disease. The LAD was diffusely diseased, but we found a spot in the mid aspect between 2 calcific plaque, which was soft anteriorly. The first diagonal artery was identified and there was a soft spot in it. The obtuse marginal artery was actually a good target, thin- walled. The right coronary artery was totally calcified as well as the proximal aspect of the posterior descending artery. However, there was a spot in the mid aspect of the posterior descending artery for bypass. Epiaortic scanning had been performed before cannulating the aorta and that showed no protruding atheroma in the aorta, which was mildly enlarged. At this point, the aorta was clamped and myocardial protection was achieved with an initial dose of 800 mL of antegrade cold blood cardioplegia followed by 400 mL of retrograde cold blood cardioplegia. All subsequent doses were given retrograde at 15 minutes interval. We started by excluding the left atrial appendage by deploying a 35 mm AtriClip at its base. Subsequently, we performed the first distal anastomosis, it was between a good segment of vein and the 1.5 mm obtuse marginal artery using Prolene 7-0 in continuous fashion. The second distal anastomosis was between another segment of vein and the diagonal artery which was around also 1.5 mm in diameter using Prolene 7-0 in continuous fashion. The third distal anastomosis was between another segment of vein from the lower leg, which was uniform; however, around 3 mm in diameter only and the totally occluded posterior descending artery in its mid aspect, where it was calcified at the corner using Prolene 7-0 in continuous fashion. The fourth and last distal anastomosis was between the left internal mammary artery that passed in a deep groove in the left pleuropericardial fat and anastomosed to the mid aspect of the left anterior descending artery between 2 calcific area using Prolene 7-0 in continuous fashion. The diameter of the LAD was around 1.7 mm in diameter. Satisfied with the distal anastomosis, rewarming was started as we punched out 2 buttons only in the proximal aorta and performed the proximal anastomosis of the vein graft to the obtuse marginal artery and the vein graft to the posterior descending artery using a running Prolene. The proximal inflow for the vein graft going to the diagonal artery which was a short segment was from the vein graft that goes to the obtuse marginal artery in a Y fashion performing a venovenostomy around 1 inch proximal to the aorta using a running Prolene 7-0. De-airing maneuvers were followed. The patient was given lidocaine and magnesium. The patient was placed in Trendelenburg position and the aorta was unclamped. We had given around 1.5 L of warm blood retrograde as we were performing the proximal work. The patient regained spontaneous sinus rhythm. Two 19-Cypriot Avel drain were left substernally. Two monopolar atrial pacing wires were affixed to the respective pursestring of the right atrium and 1 bipolar ventricular pacing wire was driven via the inferior aspect of the right ventricle. After around 15 minutes of reperfusion, we were able to wean off cardioplegia bypass without the need of any inotropic or vasopressor support. The initial preliminary signal of the graft was excellent and at this point, we performed the formal graft flow measurements. PHIL showed good LV function and no significant valvular abnormality. Cardiac index was 2.2. Satisfied with the hemodynamics, we gave a test dose followed by full dose protamine. Subsequent to that, the patient became hypotensive with a systolic pressure of around 70 and went in a junctional rhythm at around 50. For that reason, I initiated pacing. We gave the patient calcium as well as 400 mcg of epinephrine to overcome what seemed to be a protamine reaction. To mention that the patient had an atopic background with several allergies. The right ventricular function appeared a bit sluggish and for that reason, I started the patient on Primacor after a half load. The patient also was started on low- dose Levophed. We waited a while and eventually things settled and the cardiac index was actually 3 with normal PA pressure. The EKG was normal. The flow that had been obtained using the Medi-Stim system of the vein graft to the posterior descending artery was 47 mL/minute, pulsatility index of 1.1 and diastolic filling of 60%. The flow into the vein going to the obtuse marginal artery was 75 mL/minute, pulsatility index of 1.3, diastolic filling of 65%. The flow into the vein going to the diagonal artery was 38 mL/minute, pulsatility index of 1.5, diastolic filling of 68%. The flow into the left internal mammary artery to the left anterior descending artery was 57 mL/minute, pulsatility index of 2.4, diastolic filling of 76%, all showing excellent functioning graft. Mediastinal and pericardial fat were approximated over the heart and the graft. Subsequently, the sternum was closed using 5 [id number] titanium pineal cable in view of the patient's nickel allergy that were placed in a [id number] fashion after interposing fibrillar between the sternal edges. Thorough irrigation of cefazolin followed. The rest of the closure proceeded in layers. Skin glue was applied. The patient did not receive any blood bank product, but received 450 mL of Cell Saver blood. She was transferred to the ICU in stable condition on 0.2 mcg/kg/minute of Primacor with low dose of Levophed with a cardiac index of 2.8, sinus rhythm at 70, PA pressure of 30/15. MMODL / IJN: [id number] / [facility]
[2021-12-07 21:54] LABS: Glucose,Whole Blood 199 mg/dL (70-110)
[2021-12-07] MEDS: MUPIROCIN 2% OINT 22 GM TUBE NASAL SCH (21:54)
[2021-12-07] MEDS ORDERED: AMIODARONE 450 MG in DEXTROSE 5% IN WATER 250 ML IV SCH ×2 (22:30)
[2021-12-07 23:03] LABS: Glucose,Whole Blood 156 mg/dL (70-110)
[2021-12-07] MEDS: ONDANSETRON 4 MG/2 ML VIAL IVP PRN (23:57)
[2021-12-08 00:30] LABS: Glucose,Whole Blood 155 mg/dL (70-110)
[2021-12-08] MEDS: ALBUMIN HUMAN 5% 250 ML in EMPTY BAG 1 BAG IVPB PRN ×3 (00:35→13:17)
[2021-12-08] MEDS ORDERED: HYDROcodone/APAP 5-325MG 1 EACH TAB PO PRN (01:42)
[2021-12-08 01:51] LABS: Glucose,Whole Blood 117 mg/dL (70-110)
[2021-12-08 02:48] LABS: Glucose,Whole Blood 115 mg/dL (70-110)
[2021-12-08 03:49] LABS: Glucose,Whole Blood 107 mg/dL (70-110)
[2021-12-08] MEDS: HYDROcodone/APAP 5-325MG 1 EACH TAB PO PRN ×2 (04:27→08:42)
[2021-12-08 04:52] LABS: Basophils % (A) 0 %; Eosinophils % (A) 0 %; HCT 29.6 % (34.0-46.0); Ionized Calcium 4.3 mg/dL (4.5-5.3); Lymphocytes # (A) 0.5 k/uL (1.0-4.8); Lymphocytes % (A) 8 %; MCH 31.1 pg (25.0-35.0); MCHC 33.1 g/dL (31.0-37.0); MCV 94.1 fL (80.0-100.0); Mean Platelet Volume 7.7; Monocytes # (A) 0.3 k/uL (0-1.0); Monocytes % (A) 4 %; Neutrophils # (A) 5.8 k/uL (1.3-7.7); Neutrophils % (A) 87 %; Platelet Count 155 k/uL (150-450); RBC 3.14 m/uL (3.80-5.40); RDW 13.5 % (11.5-15.5); WBC 6.7 k/uL (3.8-10.6)
[2021-12-08 04:57] LABS: ALT 19 U/L (4-34); AST 59 U/L (14-36); African American GFR (CKD) >90 (>60 ml/min/1.73 sqM); Albumin 3.6 g/dL (3.5-5.0); Alkaline Phosphatase 23 U/L (38-126); Anion Gap 9 mmol/L; Blood Urea Nitrogen 13 mg/dL (7-17); Calcium 7.6 mg/dL (8.4-10.2); Carbon Dioxide 24 mmol/L (22-30); Chloride 102 mmol/L (98-107); Glucose 101 mg/dL (74-99); Magnesium 1.8 mg/dL (1.6-2.3); Non-African American GFR(CKD) 84 (>60 ml/min/1.73 sqM); Potassium 3.6 mmol/L (3.5-5.1); Sodium 135 mmol/L (137-145); Total Bilirubin 0.4 mg/dL (0.2-1.3); Total Protein 5.1 g/dL (6.3-8.2)
[2021-12-08 05:00] LABS: HGB 9.8 gm/dL (11.4-16.0)
[2021-12-08] MEDS: POTASSIUM CHLORIDE 10 MEQ in WATER FOR INJECTION 1 100ML.BAG IVPB SCH ×2 (05:23→06:30)
[2021-12-08] MEDS: MAGNESIUM SULFATE-D5W PMX 1 GM in DEXTROSE/WATER 1 100ML.BAG IVPB SCH ×2 (05:23→06:30)
[2021-12-08 05:33] LABS: Glucose,Whole Blood 138 mg/dL (70-110)
[2021-12-08] MEDS: ONDANSETRON 4 MG/2 ML VIAL IVP PRN (05:35)
[2021-12-08 06:46] LABS: Glucose,Whole Blood 173 mg/dL (70-110)
[2021-12-08] MEDS ORDERED: ACETAMINOPHEN TAB 325 MG TAB PO PRN (06:46)
[2021-12-08] MEDS: LEVOTHYROXINE 25 MCG TAB PO SCH (06:47)
[2021-12-08] MEDS: MILRINONE-D5W PMX 20 MG in DEXTROSE/WATER 1 100ML.BAG IV SCH ×2 (06:49→14:54)
[2021-12-08] MEDS: METOCLOPRAMIDE 5 MG/ML 2 ML VIAL IVP PRN ×2 (07:02→11:12)
--- NOTE | 2021-12-08 07:12 | XR ---
EXAMINATION TYPE: XR chest 1V portable DATE OF EXAM: 12/08/2021 HISTORY: Post Operative Cardiac Surgery COMPARISON: 12/07/2021 TECHNIQUE: Single view of the chest is submitted. FINDINGS: Endotracheal tube and NG tube have been removed. [place]-King catheter remains in place as well as media stinal drain. Persistent left basilar pleural-parenchymal density. No pneumothorax is present. Hilar and mediastinal structures are within normal limits. Degenerative changes are seen of the dorsal spine. IMPRESSION: 1. Essentially stable appearance of the chest. Indwelling tubes and catheters as noted.
[2021-12-08] MEDS: IPRATROPIUM-ALBUTEROL 3 ML NEB INHALATION SCH ×4 (07:45→20:05)
--- NOTE | 2021-12-08 07:51 | P.PN ---
Subjective Progress Note Date: 12/08/21 Principal diagnosis: Triple-vessel diffuse calcific coronary artery disease, preserved systolic function. Previous medical history of hypertension, hyperlipidemia, esophageal stricture with serial dilatation, previous tobacco dependence, peripheral arterial disease POD #1 quadruple coronary artery bypass grafting using the left internal mammary artery to the left anterior descending artery, reverse saphenous vein graft from the aorta to the first obtuse marginal artery, reverse saphenous vein graft from the previous vein graft and an anastomosis to the diagonal artery, reverse saphenous vein graft from the aorta to the posterior descending artery, exclusion of the left atrial appendage using a 35 mm AtriClip, endoscopic harvesting of the left greater saphenous vein, intraoperative graft flow measurements using the [employer] system, intraoperative transesophageal echo cardiogram and epi-aortic scanning Postoperative acute blood loss anemia, expected given hemodilution and cardiopulmonary bypass pump The patient was seen and examined this morning sitting up in a recliner in the intensive care unit in no acute distress. She was successfully extubated last night at 23:11. Remains in sinus rhythm, hemodynamically stable, currently on IV Primacor, Cleviprex, amiodarone, nitro, insulin. Patient does complain of post surgical pain which is not completely controlled with current medication regimen, denies shortness of breath, states it hurts to cough. She did have nausea with narcotic administration. Right internal jugular Boston/Cordis, right radial arterial line, mediastinal/left/right pleural chest tubes all remain. No other new concerns. Objective - Vital Signs Vital signs: Vital Signs Temp 98.1 F 12/08/21 04:00 Pulse 74 12/08/21 07:00 Resp 22 12/08/21 07:00 BP 111/65 12/08/21 06:00 Pulse Ox 95 12/08/21 07:00 FiO2 50 12/07/21 23:00 Intake & Output 12/07/21 12/08/21 12/08/21 18:59 06:59 18:59 Intake Total 035.954 1426.621 Output Total 3500 1630 Balance -3147.746 1296.621 Weight 71 kg Intake: IV 61 2708 ACETAMINOPHEN IV (For NPO 100 ) 1,000 mg In Empty Bag 1 bag @ 400 mls/hr IVPB Q6HR [facility] Rx#:[id number] Albumin Human 5% 250 ml 250 In Empty Bag 1 bag @ 250 mls/hr IVPB Q1HR PRN Rx#: [id number] Magnesium Sulfate-D5w Pmx 200 1 gm In Dextrose/Water 1 100ml.bag @ 100 mls/hr IVPB Q1H [facility] Rx#: [id number] Potassium Chloride 10 meq 200 In Water For Injection 1 100ml.bag @ 100 mls/hr IVPB Q1H [facility] Rx#: [id number] Sodium Chloride 0.9% 1, 600 000 ml @ 20 mls/hr IV . Q24H [facility] Rx#:[id number] cardiac output 40 250 ceFAZolin 2 gm In Sodium 50 Chloride 0.9% 50 ml @ 100 mls/hr IVPB Q8HR [facility] Rx# :[id number] pressure bags 18 1058 Intake, IV Titration 291.254 218.621 Amount ACETAMINOPHEN IV (For NPO 100 ) 1,000 mg In Empty Bag 1 bag @ 400 mls/hr IVPB Q6HR [facility] Rx#:[id number] Clevidipine Butyrate 25 15.200 48.666 mg In Empty Bag 1 bag @ 1 MG/HR 2 mls/hr IV .Q24H [facility] Rx#:[id number] Insulin Regular 100 unit 61.770 In Sodium Chloride 0.9% 100 ml @ Per Protocol IV .Q0M [facility] Rx#:[id number] Milrinone-D5w Pmx 20 mg 58.185 In Dextrose/Water 1 100ml .bag @ 0.2 MCG/KG/MIN 4. 05 mls/hr IV .Q24H [facility] Rx #:[id number] Sodium Chloride 0.9% 1, 100 50 000 ml @ 20 mls/hr IV . Q24H [facility] Rx#:[id number] ceFAZolin 2 gm In Sodium 50 Chloride 0.9% 50 ml @ 100 mls/hr IVPB Q8HR [facility] Rx# :[id number] propofoL 1,000 mg In 26.054 Empty Bag 1 bag @ Titrate IV .Q0M [facility] Rx#: [id number] Output: Chest Tube Drainage 350 345 left pleural 120 95 mediastinal x2 165 195 right pleural 65 55 Drainage 20 left leg 20 Urine 1650 1265 Estimated Blood Loss 1500 Other: Voiding Method Indwelling Catheter Indwelling Catheter ABP, PAP, CO, CI - Last Documented Arterial Blood Pressure 139/53 Pulmonary Artery Pressure 23/9 Cardiac Output 3.8 Cardiac Index 2.4 - Exam CONSTITUTIONAL: Appears somewhat comfortable, cooperative, no acute distress RESPIRATORY: Lungs sounds diminished bilaterally. Respirations even, nonlabored. Currently on 3 L nasal cannula with oxygen saturation 96%. Able to achieve 750 mL on incentive spirometry. Strong cough. CARDIOVASCULAR: S1, S2 present. Regular rate and rhythm, sinus rhythm on telemetry. Sternum stable. Palpable peripheral pulses bilaterally. No edema present. No calf pain or tenderness noted. Heart hugger in place with patient demonstrating appropriate use. Antiembolism stockings, SCDs present. GASTROINTESTINAL: Abdomen soft, nontender, nondistended, obese. Hypoactive bowel sounds present 4 quadrants. Tolerating minimal sips of clear liquids. Denies flatus GENITOURINARY: Savage present draining clear, yellow urine. Output overnight 50-100 mL per hour INTEGUMENTARY: Skin is warm and dry with evidence of good perfusion. Anterior chest incision well approximated and covered with dry intact dressing. Left lower extremity EVH site well approximated without redness, JOSIE drain present with minimal drainage NEUROLOGIC: Cranial nerves II through XII intact MUSKULOSKELETAL: Able to move all extremities, strength equal bilaterally PSYCHIATRIC: Alert and oriented to person place and time, appropriate affect, intact judgment and insight INVASIVE LINES AND TUBES: Mediastinal/left/right pleural chest tubes present and connected to wall suction, no air leaks present. Mediastinal tube with 140 mL serosanguineous drainage overnight, 350 mL since surgery. Left pleural chest tube with 55 mL serosanguineous drainage overnight, 210 mL since surgery. Right pleural chest tube with 25 mL serosanguineous drainage overnight, 120 mL since surgery. A/V epicardial pacemaker wires present, grounded. Right internal jugular Boston/Cordis, right radial arterial line present. Last CO/CI 3.8/2.4, PA 24/9, CVP 7. - Allied health notes Allied health notes reviewed: nursing - Labs CBC & Chem 7: 12/08/21 03:57 12/08/21 03:57 Labs: Abnormal Lab Results - Last 24 Hours (Table) 11/28/21 12/07/21 12/07/21 Range/Units 15:30 08:30 10:22 RBC (3.80-5.40) m/uL Hgb (11.4-16.0) gm/dL Hct (34.0-46.0) % Plt Count (150-450) k/uL Neutrophils # (1.3-7.7) k/uL Lymphocytes # (1.0-4.8) k/uL PT (9.0-12.0) sec INR (<1.2) APTT (22.0-30.0) sec ABG pH 7.46 H (7.35-7.45) ABG pCO2 (35-45) mmHg ABG pO2 263 H 274 H (83-108) mmHg ABG HCO3 26 H (21-25) mmol/L ABG Total CO2 27 H 27 H (19-24) mmol/L ABG O2 Saturation 99.6 H 99.6 H (94-97) % ABG Hematocrit (34.0-46.0) % ABG Sodium (135-146) mmol/L ABG Ionized Calcium (4.5-5.3) mg/dL ABG Glucose 113 H 159 H (75-99) mg/dL ABG Lactic Acid (0.5-1.6) mmol/L Hemoglobin 11.1 L (11.4-16.0) gm/dL Sodium (137-145) mmol/L BUN (7-17) mg/dL Glucose (74-99) mg/dL POC Glucose (mg/dL) (70-110) mg/dL Calcium (8.4-10.2) mg/dL Ionized Calcium Elliott (4.5-5.3) mg/dL AST (14-36) U/L Alkaline Phosphatase (38-126) U/L Total Protein (6.3-8.2) g/dL Albumin (3.5-5.0) g/dL Arterial Blood Glucose 113 H 159 H (75-99) mg/dL Crossmatch See Detail 12/07/21 12/07/21 12/07/21 Range/Units 10:56 11:37 12:15 RBC (3.80-5.40) m/uL Hgb (11.4-16.0) gm/dL Hct (34.0-46.0) % Plt Count (150-450) k/uL Neutrophils # (1.3-7.7) k/uL Lymphocytes # (1.0-4.8) k/uL PT (9.0-12.0) sec INR (<1.2) APTT (22.0-30.0) sec ABG pH (7.35-7.45) ABG pCO2 34 L (35-45) mmHg ABG pO2 >420 H 356 H 373 H (83-108) mmHg ABG HCO3 20 L 27 H 26 H (21-25) mmol/L ABG Total CO2 28 H 28 H (19-24) mmol/L ABG O2 Saturation 100.0 H 99.9 H 99.9 H (94-97) % ABG Hematocrit 22 L 23 L 20 L* (34.0-46.0) % ABG Sodium 133 L (135-146) mmol/L ABG Ionized Calcium 3.7 L 4.1 L 3.9 L (4.5-5.3) mg/dL ABG Glucose 124 H 148 H 164 H (75-99) mg/dL ABG Lactic Acid 1.9 H 1.8 H (0.5-1.6) mmol/L Hemoglobin 7.3 L 7.5 L 6.7 L* (11.4-16.0) gm/dL Sodium (137-145) mmol/L BUN (7-17) mg/dL Glucose (74-99) mg/dL POC Glucose (mg/dL) (70-110) mg/dL Calcium (8.4-10.2) mg/dL Ionized Calcium Elliott (4.5-5.3) mg/dL AST (14-36) U/L Alkaline Phosphatase (38-126) U/L Total Protein (6.3-8.2) g/dL Albumin (3.5-5.0) g/dL Arterial Blood Glucose 124 H 148 H 164 H (75-99) mg/dL Crossmatch 12/07/21 12/07/21 12/07/21 Range/Units 12:55 14:02 15:35 RBC (3.80-5.40) m/uL Hgb (11.4-16.0) gm/dL Hct (34.0-46.0) % Plt Count (150-450) k/uL Neutrophils # (1.3-7.7) k/uL Lymphocytes # (1.0-4.8) k/uL PT (9.0-12.0) sec INR (<1.2) APTT (22.0-30.0) sec ABG pH 7.33 L (7.35-7.45) ABG pCO2 (35-45) mmHg ABG pO2 333 H 389 H (83-108) mmHg ABG HCO3 26 H (21-25) mmol/L ABG Total CO2 27 H (19-24) mmol/L ABG O2 Saturation 99.7 H 99.6 H (94-97) % ABG Hematocrit 21 L 24 L (34.0-46.0) % ABG Sodium (135-146) mmol/L ABG Ionized Calcium 3.9 L (4.5-5.3) mg/dL ABG Glucose 148 H 183 H (75-99) mg/dL ABG Lactic Acid 2.4 H* 4.6 H* (0.5-1.6) mmol/L Hemoglobin 6.8 L* 7.7 L (11.4-16.0) gm/dL Sodium (137-145) mmol/L BUN (7-17) mg/dL Glucose (74-99) mg/dL POC Glucose (mg/dL) 129 H (70-110) mg/dL Calcium (8.4-10.2) mg/dL Ionized Calcium Elliott (4.5-5.3) mg/dL AST (14-36) U/L Alkaline Phosphatase (38-126) U/L Total Protein (6.3-8.2) g/dL Albumin (3.5-5.0) g/dL Arterial Blood Glucose 148 H 183 H (75-99) mg/dL Crossmatch 12/07/21 12/07/21 12/07/21 Range/Units 15:36 15:36 15:36 RBC 2.89 L (3.80-5.40) m/uL Hgb 8.6 L D (11.4-16.0) gm/dL Hct 27.3 L (34.0-46.0) % Plt Count 114 L D (150-450) k/uL Neutrophils # (1.3-7.7) k/uL Lymphocytes # 0.7 L (1.0-4.8) k/uL PT 12.4 H (9.0-12.0) sec INR 1.2 H (<1.2) APTT 36.3 H (22.0-30.0) sec ABG pH (7.35-7.45) ABG pCO2 (35-45) mmHg ABG pO2 (83-108) mmHg ABG HCO3 (21-25) mmol/L ABG Total CO2 (19-24) mmol/L ABG O2 Saturation (94-97) % ABG Hematocrit (34.0-46.0) % ABG Sodium (135-146) mmol/L ABG Ionized Calcium (4.5-5.3) mg/dL ABG Glucose (75-99) mg/dL ABG Lactic Acid (0.5-1.6) mmol/L Hemoglobin (11.4-16.0) gm/dL Sodium (137-145) mmol/L BUN 20 H (7-17) mg/dL Glucose 117 H (74-99) mg/dL POC Glucose (mg/dL) (70-110) mg/dL Calcium (8.4-10.2) mg/dL Ionized Calcium Elliott (4.5-5.3) mg/dL AST 48 H (14-36) U/L Alkaline Phosphatase <20 L (38-126) U/L Total Protein 3.9 L (6.3-8.2) g/dL Albumin 2.5 L (3.5-5.0) g/dL Arterial Blood Glucose (75-99) mg/dL Crossmatch 12/07/21 12/07/21 12/07/21 Range/Units 16:15 17:09 17:09 RBC 3.55 L (3.80-5.40) m/uL Hgb 11.1 L (11.4-16.0) gm/dL Hct 33.6 L (34.0-46.0) % Plt Count (150-450) k/uL Neutrophils # (1.3-7.7) k/uL Lymphocytes # 0.8 L (1.0-4.8) k/uL PT (9.0-12.0) sec INR (<1.2) APTT (22.0-30.0) sec ABG pH 7.31 L (7.35-7.45) ABG pCO2 49 H (35-45) mmHg ABG pO2 302 H (83-108) mmHg ABG HCO3 (21-25) mmol/L ABG Total CO2 26 H (19-24) mmol/L ABG O2 Saturation 99.9 H (94-97) % ABG Hematocrit 29 L (34.0-46.0) % ABG Sodium (135-146) mmol/L ABG Ionized Calcium (4.5-5.3) mg/dL ABG Glucose (75-99) mg/dL ABG Lactic Acid (0.5-1.6) mmol/L Hemoglobin 9.4 L (11.4-16.0) gm/dL Sodium (137-145) mmol/L BUN (7-17) mg/dL Glucose (74-99) mg/dL POC Glucose (mg/dL) 151 H (70-110) mg/dL Calcium (8.4-10.2) mg/dL Ionized Calcium Elliott (4.5-5.3) mg/dL AST (14-36) U/L Alkaline Phosphatase (38-126) U/L Total Protein (6.3-8.2) g/dL Albumin (3.5-5.0) g/dL Arterial Blood Glucose (75-99) mg/dL Crossmatch 12/07/21 12/07/21 12/07/21 Range/Units 18:04 19:01 19:40 RBC (3.80-5.40) m/uL Hgb (11.4-16.0) gm/dL Hct (34.0-46.0) % Plt Count (150-450) k/uL Neutrophils # (1.3-7.7) k/uL Lymphocytes # (1.0-4.8) k/uL PT (9.0-12.0) sec INR (<1.2) APTT (22.0-30.0) sec ABG pH (7.35-7.45) ABG pCO2 (35-45) mmHg ABG pO2 (83-108) mmHg ABG HCO3 (21-25) mmol/L ABG Total CO2 (19-24) mmol/L ABG O2 Saturation (94-97) % ABG Hematocrit (34.0-46.0) % ABG Sodium (135-146) mmol/L ABG Ionized Calcium (4.5-5.3) mg/dL ABG Glucose (75-99) mg/dL ABG Lactic Acid (0.5-1.6) mmol/L Hemoglobin (11.4-16.0) gm/dL Sodium (137-145) mmol/L BUN (7-17) mg/dL Glucose (74-99) mg/dL POC Glucose (mg/dL) 199 H 198 H 212 H (70-110) mg/dL Calcium (8.4-10.2) mg/dL Ionized Calcium Elliott (4.5-5.3) mg/dL AST (14-36) U/L Alkaline Phosphatase (38-126) U/L Total Protein (6.3-8.2) g/dL Albumin (3.5-5.0) g/dL Arterial Blood Glucose (75-99) mg/dL Crossmatch 12/07/21 12/07/21 12/07/21 Range/Units 19:42 20:52 20:54 RBC 3.71 L (3.80-5.40) m/uL Hgb (11.4-16.0) gm/dL Hct (34.0-46.0) % Plt Count (150-450) k/uL Neutrophils # 8.8 H (1.3-7.7) k/uL Lymphocytes # (1.0-4.8) k/uL PT (9.0-12.0) sec INR (<1.2) APTT (22.0-30.0) sec ABG pH (7.35-7.45) ABG pCO2 (35-45) mmHg ABG pO2 (83-108) mmHg ABG HCO3 (21-25) mmol/L ABG Total CO2 (19-24) mmol/L ABG O2 Saturation 97.9 H (94-97) % ABG Hematocrit 33 L (34.0-46.0) % ABG Sodium (135-146) mmol/L ABG Ionized Calcium (4.5-5.3) mg/dL ABG Glucose (75-99) mg/dL ABG Lactic Acid (0.5-1.6) mmol/L Hemoglobin 10.7 L (11.4-16.0) gm/dL Sodium (137-145) mmol/L BUN (7-17) mg/dL Glucose (74-99) mg/dL POC Glucose (mg/dL) 210 H (70-110) mg/dL Calcium (8.4-10.2) mg/dL Ionized Calcium Elliott (4.5-5.3) mg/dL AST (14-36) U/L Alkaline Phosphatase (38-126) U/L Total Protein (6.3-8.2) g/dL Albumin (3.5-5.0) g/dL Arterial Blood Glucose (75-99) mg/dL Crossmatch 12/07/21 12/07/21 12/08/21 Range/Units 21:52 23:01 00:28 RBC (3.80-5.40) m/uL Hgb (11.4-16.0) gm/dL Hct (34.0-46.0) % Plt Count (150-450) k/uL Neutrophils # (1.3-7.7) k/uL Lymphocytes # (1.0-4.8) k/uL PT (9.0-12.0) sec INR (<1.2) APTT (22.0-30.0) sec ABG pH (7.35-7.45) ABG pCO2 (35-45) mmHg ABG pO2 (83-108) mmHg ABG HCO3 (21-25) mmol/L ABG Total CO2 (19-24) mmol/L ABG O2 Saturation (94-97) % ABG Hematocrit (34.0-46.0) % ABG Sodium (135-146) mmol/L ABG Ionized Calcium (4.5-5.3) mg/dL ABG Glucose (75-99) mg/dL ABG Lactic Acid (0.5-1.6) mmol/L Hemoglobin (11.4-16.0) gm/dL Sodium (137-145) mmol/L BUN (7-17) mg/dL Glucose (74-99) mg/dL POC Glucose (mg/dL) 199 H 156 H 155 H (70-110) mg/dL Calcium (8.4-10.2) mg/dL Ionized Calcium Elliott (4.5-5.3) mg/dL AST (14-36) U/L Alkaline Phosphatase (38-126) U/L Total Protein (6.3-8.2) g/dL Albumin (3.5-5.0) g/dL Arterial Blood Glucose (75-99) mg/dL Crossmatch 09/09/22 09/09/22 09/09/22 Range/Units 01:50 02:47 03:57 RBC 3.14 L (3.80-5.40) m/uL Hgb 9.8 L D (11.4-16.0) gm/dL Hct 29.6 L (34.0-46.0) % Plt Count (150-450) k/uL Neutrophils # (1.3-7.7) k/uL Lymphocytes # 0.5 L (1.0-4.8) k/uL PT (9.0-12.0) sec INR (<1.2) APTT (22.0-30.0) sec ABG pH (7.35-7.45) ABG pCO2 (35-45) mmHg ABG pO2 (83-108) mmHg ABG HCO3 (21-25) mmol/L ABG Total CO2 (19-24) mmol/L ABG O2 Saturation (94-97) % ABG Hematocrit (34.0-46.0) % ABG Sodium (135-146) mmol/L ABG Ionized Calcium (4.5-5.3) mg/dL ABG Glucose (75-99) mg/dL ABG Lactic Acid (0.5-1.6) mmol/L Hemoglobin (11.4-16.0) gm/dL Sodium (137-145) mmol/L BUN (7-17) mg/dL Glucose (74-99) mg/dL POC Glucose (mg/dL) 117 H 115 H (70-110) mg/dL Calcium (8.4-10.2) mg/dL Ionized Calcium Elliott (4.5-5.3) mg/dL AST (14-36) U/L Alkaline Phosphatase (38-126) U/L Total Protein (6.3-8.2) g/dL Albumin (3.5-5.0) g/dL Arterial Blood Glucose (75-99) mg/dL Crossmatch 12/08/21 12/08/21 12/08/21 Range/Units 03:57 05:31 06:43 RBC (3.80-5.40) m/uL Hgb (11.4-16.0) gm/dL Hct (34.0-46.0) % Plt Count (150-450) k/uL Neutrophils # (1.3-7.7) k/uL Lymphocytes # (1.0-4.8) k/uL PT (9.0-12.0) sec INR (<1.2) APTT (22.0-30.0) sec ABG pH (7.35-7.45) ABG pCO2 (35-45) mmHg ABG pO2 (83-108) mmHg ABG HCO3 (21-25) mmol/L ABG Total CO2 (19-24) mmol/L ABG O2 Saturation (94-97) % ABG Hematocrit (34.0-46.0) % ABG Sodium (135-146) mmol/L ABG Ionized Calcium (4.5-5.3) mg/dL ABG Glucose (75-99) mg/dL ABG Lactic Acid (0.5-1.6) mmol/L Hemoglobin (11.4-16.0) gm/dL Sodium 135 L (137-145) mmol/L BUN (7-17) mg/dL Glucose 101 H (74-99) mg/dL POC Glucose (mg/dL) 138 H 173 H (70-110) mg/dL Calcium 7.6 L (8.4-10.2) mg/dL Ionized Calcium Elliott 4.3 L (4.5-5.3) mg/dL AST 59 H (14-36) U/L Alkaline Phosphatase 23 L (38-126) U/L Total Protein 5.1 L (6.3-8.2) g/dL Albumin (3.5-5.0) g/dL Arterial Blood Glucose (75-99) mg/dL Crossmatch - Imaging and Cardiology Chest x-ray: report reviewed, image reviewed Assessment and Plan Assessment: 1. Triple-vessel diffuse calcific coronary artery disease, status post four- vessel CABG 2. Preserved systolic function 3. Hypertension 4. Hyperlipidemia, cholesterol 269, LDL 171, triglycerides 245 5. Esophageal stricture with serial dilatation 6. Previous tobacco dependence, preoperative FEV1 77% of predicted 7. Peripheral arterial disease, right lower extremity TORITO 0.83 8. Postoperative acute blood loss anemia, expected Plan: 1. Continue to maximize medical therapy with aspirin, statin, Plavix, beta rani therapy. Will increase beta rani therapy as tolerated. Wean Primacor, Cleviprex. Discontinue IV nitro 2. Continue amiodarone for A. fib prophylaxis, will transition to oral 3. Wean O2 as tolerated. Encourage incentive spirometry was 10 times every hour while awake. Bronchodilators per pulmonology 4. Increase activity as tolerated. PT/OT/cardiac rehab consulted 5. Will monitor daily labs and x-rays. Electrolyte replacement per protocol 6. GI/DVT prophylaxis 7. Pain control per medication regimen. Will add Toradol for better pain control, limit narcotics 8. Insulin management per primary care service. Patient is not diabetic, preoperative hemoglobin A1c 5.8% 9. Will discontinue Boston. Connect Cordis to continuous CVP monitoring 10. Will discontinue JOSIE drain 11. Continue chest tubes for another 24 hours 12. Continue Savage catheter for another 24 hours for strict accurate intake and output. Daily weights 13. More recommendations to follow
[2021-12-08] MEDS: KETOROLAC 15 MG/ML 1 ML VIAL IVP SCH ×4 (08:02→23:54)
[2021-12-08 08:16] LABS: Glucose,Whole Blood 130 mg/dL (70-110)
[2021-12-08] MEDS: PANTOPRAZOLE 40 MG/10 ML VIAL IVP SCH (08:41)
[2021-12-08] MEDS: CLEVIDIPINE BUTYRATE 25 MG in EMPTY BAG 1 BAG IV SCH (08:41)
[2021-12-08] MEDS: MULTIVITAMINS, THERA 1 EACH TAB PO SCH (08:42)
[2021-12-08] MEDS: CLOPIDOGREL 75 MG TAB PO SCH (08:42)
[2021-12-08] MEDS: AMIODARONE 200 MG TAB PO SCH ×2 (08:42→21:07)
[2021-12-08] MEDS: METOPROLOL TARTRATE 25 MG TAB PO SCH ×2 (08:42→21:07)
[2021-12-08] MEDS: ATORVASTATIN 40 MG TAB PO SCH (08:42)
[2021-12-08] MEDS: MUPIROCIN 2% OINT 22 GM TUBE NASAL SCH ×2 (08:43→21:07)
[2021-12-08] MEDS: ENOXAPARIN 40 MG/0.4 ML SYRINGE SQ SCH (08:43)
[2021-12-08] MEDS: ASPIRIN 325 MG TAB PO SCH (08:43)
[2021-12-08] MEDS: CHOLECALCIFEROL 25 MCG (1000 IU) TABLET PO SCH (08:43)
[2021-12-08] MEDS ORDERED: bisacodyL 10 MG SUPP RECTAL PRN (09:00)
[2021-12-08] MEDS ORDERED: METOPROLOL TARTRATE 12.5 MG TAB PO SCH (09:00)
[2021-12-08] MEDS ORDERED: MAGNESIUM HYDROXIDE 2,400 MG/10 ML CUP PO PRN (09:00)
[2021-12-08] MEDS ORDERED: PANTOPRAZOLE 40 MG/10 ML VIAL IVP SCH (09:00)
[2021-12-08 10:43] LABS: Glucose,Whole Blood 67 mg/dL (70-110)
[2021-12-08 10:52] VITALS: BMI 29.5
--- NOTE | 2021-12-08 10:53 | P.CRDCN ---
History of Present Illness Consult date: 12/08/21 History of present illness: Patient has a known history of Triple-vessel coronary artery disease, preserved systolic function. Previous medical history of hypertension, hyperlipidemia, esophageal stricture with serial dilatation, previous tobacco dependence, peripheral arterial disease and follows with Dr. Velez in the office She is postop day 1 after a quadruple coronary artery bypass grafting using the left internal mammary artery to the left anterior descending artery, reverse saphenous vein graft from the aorta to the first obtuse marginal artery, reverse saphenous vein graft from the previous vein graft and an anastomosis to the diagonal artery, reverse saphenous vein graft from the aorta to the posterior descending artery, exclusion of the left atrial appendage using a 35 mm AtriClip, endoscopic harvesting of the left greater saphenous vein, intraop erative graft flow measurements using the OFERTALDIAstim system, intraoperative transesophageal echocardiogram and epi-aortic scanning Patient is examined today resting comfortably in chair with no signs of acute distress. She denies increased shortness of breath or chest pain. She does report surgical pain. She has remained in sinus rhythm. She is on amiodarone and nitro drip prophylactically Patient had a carotid ultrasound which was negative for stenosis, her echocardiogram shows a mildly decreased LV function with an ejection fraction of 45-50%, moderate left ventricular hypertrophy, mild mitral regurgitation, and mild aortic stenosis. She will continue on aspirin Lipitor Plavix and Lopressor. Review of Systems REVIEW OF SYSTEMS At the time of my exam: CONSTITUTIONAL: Denies fever or chills. EYES: Negative for vision changes ENT: Negative for hearing loss CARDIOVASCULAR: Denies chest pain, shortness of breath, diaphoresis, orthopnea, PND or palpitations. VASCULAR: Denies edema RESPIRATORY: Denies cough. GASTROINTESTINAL: Denies abdominal pain, diarrhea, constipation, nausea or vomiting. MUSCULOSKELETAL: Denies myalgias. NEUROLOGIC: Denies numbness, tingling, headache or weakness. ENDOCRINE: Denies fatigue, weight change, polydipsia or polyurina. GENITOURINARY: Denies burning, hematuria or urgency with micturation. HEMATOLOGIC: Denies history of anemia or bleeding. DERMATOLOGY: Denies rash or skin sores PSYCH: Negative for depression or hallucinations. Past Medical History Past Medical History: GERD/Reflux, GI Bleed, Hyperlipidemia, Hypertension, Osteoarthritis (OA), Thyroid Disorder Additional Past Medical History / Comment(s): increased fatigue and SOB w/ activity,HX OF DIVERTICULAR BLEED, states had 5 transfusions, bleed "caused by pain medication use." NOT ABLE TO FULLY BEND LEFT KNEE. Urinary frequency, Osteoporosis. States "scar tissue with implants.", Hiatal Hernia., states terrible heartburn & burning pain when she inhales cold air. History of Any Multi-Drug Resistant Organisms: None Reported Past Surgical History: Back Surgery, Section, Heart Catheterization, Hysterectomy, Joint Replacement, Orthopedic Surgery, Tonsillectomy Additional Past Surgical History / Comment(s): CERVICAL FUSION FROM C3-7. Bilateral KNEE REPLACEMENTS WITH (3 lt total knee surgeries,1 rt knee) . EGD. Bilateral cataract surgery. Colonoscopy. Has had epidurals for pain, and "nerve burning." Past Anesthesia/Blood Transfusion Reactions: No Reported Reaction Additional Past Anesthesia/Blood Transfusion Reaction / Comment(s): No problem with transfusions. Smoking Status: Former smoker - Past Family History Mother Additional Family Medical History / Comment(s): Cerebral hemorrhage at age 51. Father Family Medical History: COPD Additional Family Medical History / Comment(s): Emphysema. Medications and Allergies Home Medications Medication Instructions Recorded Confirmed Type Cholecalciferol [Vitamin D3 (25 50 mcg PO DAILY 05/03/15 12/07/21 History Mcg = 1000 Iu)] Levothyroxine Sodium 25 mcg PO DAILY 10/01/19 12/07/21 History Metoprolol Succinate (ER) [Toprol 25 mg PO DAILY 10/01/19 12/07/21 History XL] Aspirin [Adult Low Dose Aspirin EC] 81 mg PO DAILY 08/11/20 12/07/21 History Ibuprofen [Motrin Ib] 200 - 400 mg PO Q8H PRN 02/09/21 12/07/21 History Pantoprazole [Protonix] 40 mg PO BID 06/22/21 12/07/21 History Sucralfate [Carafate] 1 gm PO QID 09/08/21 12/07/21 History Lidocaine 5% Patch [Lidoderm 5% 1 patch TOPICAL DAILY PRN 30 Days 09/11/21 12/07/21 Rx Patch] #30 patch Cannabidiol (Cbd) [Epidiolex] 1 dose TOPICAL DAILY PRN 11/27/21 12/07/21 History Mirabegron [Myrbetriq] 25 mg PO DAILY 11/27/21 12/07/21 History Multivit-Min/Iron/Folic/Lutein 1 each PO DAILY 11/27/21 12/07/21 History [Centrum Silver Women Tablet] Isosorbide Mononitrate ER [Imdur] 30 mg PO DAILY #90 tab 11/28/21 12/07/21 Rx Mupirocin 2% Oint [Bactroban 2% 1 applic NASAL BID 5 Days #22 gm 11/28/21 12/07/21 Rx Oint] Allergies Allergy/AdvReac Type Severity Reaction Status Date / Time nickel Allergy developes Verified 12/07/21 06:08 scar tissue Sulfa (Sulfonamide Allergy Rash/Hives Verified 12/07/21 06:08 Antibiotics) codeine AdvReac Nausea & Verified 12/07/21 06:08 Vomiting Physical Exam Vitals: Vital Signs Temp Pulse Resp BP Pulse Ox FiO2 12/08/21 08:00 90 12/08/21 07:45 90 12/08/21 07:00 74 22 95 12/08/21 06:30 75 24 93 L 12/08/21 06:00 78 22 111/65 92 L 12/08/21 05:00 80 17 106/64 97 12/08/21 04:00 98.1 F 81 18 109/63 96 12/08/21 03:59 14 12/08/21 03:00 82 14 113/64 95 12/08/21 02:00 86 20 114/67 97 12/08/21 01:00 85 18 114/67 97 12/08/21 00:00 98.1 F 18 113/66 94 L 12/07/21 23:17 94 L 12/07/21 23:00 93 22 122/77 97 50 12/07/21 22:00 104 H 19 114/64 96 12/07/21 21:00 26 H 96 50 12/07/21 20:10 50 12/07/21 20:05 50 12/07/21 20:00 96.8 F L 118 H 16 115/66 97 50 12/07/21 19:55 50 12/07/21 19:52 113 H 12/07/21 19:50 50 12/07/21 19:45 16 50 12/07/21 19:40 50 12/07/21 19:35 50 12/07/21 19:30 50 12/07/21 19:25 50 12/07/21 19:20 50 12/07/21 19:15 104 H 12 96 50 12/07/21 19:10 50 12/07/21 19:05 50 12/07/21 19:00 103 H 14 96 50 12/07/21 18:45 102 H 16 96 12/07/21 18:30 104 H 12 96 12/07/21 18:15 103 H 11 L 95 12/07/21 18:00 104 H 17 95 12/07/21 17:45 101 H 16 94 L 12/07/21 17:30 101 H 13 94 L 12/07/21 17:15 102 H 13 95 12/07/21 17:00 103 H 16 95 50 12/07/21 16:45 102 H 13 95 12/07/21 16:42 103 H 12/07/21 16:32 105 H 12/07/21 16:30 104 H 16 12/07/21 16:28 50 12/07/21 16:15 106 H 11 L 98 12/07/21 16:00 106 H 14 99 12/07/21 15:45 103 H 19 98 12/07/21 15:30 95.2 F L 108 H 19 99 100 12/07/21 15:23 28 H 12/07/21 15:22 100 Intake and Output 12/07/21 12/08/21 12/08/21 22:59 06:59 14:59 Intake Total 9244.080 3039.469 44.154 Output Total 2065 865 Balance -393.594 739.469 44.154 Intake: IV 1285 1481 ACETAMINOPHEN IV (For NPO 100 ) 1,000 mg In Empty Bag 1 bag @ 400 mls/hr IVPB Q6HR DEBORAH Rx#:[id number] Albumin Human 5% 250 ml 250 In Empty Bag 1 bag @ 250 mls/hr IVPB Q1HR PRN Rx#: [id number] Magnesium Sulfate-D5w Pmx 200 1 gm In Dextrose/Water 1 100ml.bag @ 100 mls/hr IVPB Q1H DEBORAH Rx#: [id number] Potassium Chloride 10 meq 200 In Water For Injection 1 100ml.bag @ 100 mls/hr IVPB Q1H DEBORHA Rx#: [id number] Sodium Chloride 0.9% 1, 150 450 000 ml @ 20 mls/hr IV . Q24H DEBORAH Rx#:[id number] cardiac output 140 150 ceFAZolin 2 gm In Sodium 50 Chloride 0.9% 50 ml @ 100 mls/hr IVPB Q8HR DEBORAH Rx# :[id number] pressure bags 995 81 Intake, IV Titration 386.406 123.469 44.154 Amount ACETAMINOPHEN IV (For NPO 100 ) 1,000 mg In Empty Bag 1 bag @ 400 mls/hr IVPB Q6HR DEBORAH Rx#:[id number] Clevidipine Butyrate 25 39.866 24 13.867 mg In Empty Bag 1 bag @ 1 MG/HR 2 mls/hr IV .Q24H DEBORAH Rx#:[id number] Insulin Regular 100 unit 20.486 41.284 In Sodium Chloride 0.9% 100 ml @ Per Protocol IV .Q0M DEBORAH Rx#:[id number] Milrinone-D5w Pmx 20 mg 58.185 6.412 In Dextrose/Water 1 100ml .bag @ 0.2 MCG/KG/MIN 4. 05 mls/hr IV .Q24H DEBORAH Rx #:[id number] Nitroglycerin-D5w Pmx 50 23.875 mg In Dextrose/Water 1 250ml.bag @ 5 MCG/MIN 1.5 mls/hr IV .Q24H DEBORAH Rx#: [id number] Sodium Chloride 0.9% 1, 150 000 ml @ 20 mls/hr IV . Q24H DEBORAH Rx#:[id number] ceFAZolin 2 gm In Sodium 50 Chloride 0.9% 50 ml @ 100 mls/hr IVPB Q8HR DEBORAH Rx# :[id number] propofoL 1,000 mg In 26.054 Empty Bag 1 bag @ Titrate IV .Q0M DEBORAH Rx#: [id number] Output: Chest Tube Drainage 475 220 left pleural 160 55 mediastinal x2 220 140 right pleural 95 25 Drainage 20 left leg 20 Urine 1570 645 Other: Voiding Method Indwelling Catheter Indwelling Catheter Weight 71 kg ABP, PAP, CO, CI - Last 8 Hours Arterial Blood Pressure 139/53 Arterial Blood Pressure 131/54 Arterial Blood Pressure 133/54 Arterial Blood Pressure 129/52 Arterial Blood Pressure 124/52 Arterial Blood Pressure 116/49 Pulmonary Artery Pressure 23/9 Pulmonary Artery Pressure 23/11 Pulmonary Artery Pressure 29/14 Pulmonary Artery Pressure 29/14 Pulmonary Artery Pressure 25/11 Pulmonary Artery Pressure 22/8 Cardiac Output 3.8 Cardiac Output 4 Cardiac Index 2.4 Cardiac Index 2.5 PHYSICAL EXAMINATION VITAL SIGNS: Reviewed General: The patient is awake and alert, in no distress, and does not appear acutely ill. Skin: Skin is warm and dry and no rashes or lesions are noted. Eye: Pupils are equal, round and reactive to light, extra-ocular movements are intact; there is normal conjunctiva bilaterally. Ears, nose, mouth and throat: There are moist mucous membranes and no oral l esions. Neck: The neck is supple, there is no tenderness or JVD. Cardiovascular: There is regular rate and rhythm. No murmur, rub or gallop is appreciated. Respiratory: Lungs are clear to auscultation, respirations are non-labored, breath sounds are equal. Gastrointestinal: Soft, non-distended, non-tender abdomen without masses or organomegaly noted. There is no rebound or guarding present. Bowel sounds are unremarkable. Back: There is no tenderness to palpation in the midline. There is no obvious deformity. Musculoskeletal: Normal ROM, no tenderness, There is no pedal edema. There is no calf tenderness or swelling. Extremities: Mild bilateral pitting edema Vascular: Femoral pulse is normal. Posterior tibial pulses are normal .Dorsalis pedis is palpable. Neurological: CN II-XII intact. There are no obvious motor or sensory deficits. Speech is normal. Psychiatric: Cooperative, appropriate mood & affect, normal judgment Results 12/08/21 03:57 12/08/21 03:57 Cardiac Enzymes 12/07/21 12/08/21 Range/Units 15:36 03:57 AST 48 H 59 H (14-36) U/L Coagulation 12/07/21 Range/Units 15:36 PT 12.4 H (9.0-12.0) sec APTT 36.3 H (22.0-30.0) sec CBC 12/07/21 12/07/21 12/07/21 Range/Units 15:36 17:09 19:42 WBC 6.3 7.5 10.3 (3.8-10.6) k/uL RBC 2.89 L 3.55 L 3.71 L (3.80-5.40) m/uL Hgb 8.6 L D 11.1 L 11.6 (11.4-16.0) gm/dL Hct 27.3 L 33.6 L 34.9 (34.0-46.0) % Plt Count 114 L D 164 199 (150-450) k/uL 12/08/21 Range/Units 03:57 WBC 6.7 (3.8-10.6) k/uL RBC 3.14 L (3.80-5.40) m/uL Hgb 9.8 L D (11.4-16.0) gm/dL Hct 29.6 L (34.0-46.0) % Plt Count 155 (150-450) k/uL Comprehensive Metabolic Panel 12/07/21 12/08/21 Range/Units 15:36 03:57 Sodium 137 135 L (137-145) mmol/L Potassium 4.0 3.6 (3.5-5.1) mmol/L Chloride 105 102 (98-107) mmol/L Carbon Dioxide 22 24 (22-30) mmol/L BUN 20 H 13 (7-17) mg/dL Creatinine 0.78 0.62 (0.52-1.04) mg/dL Glucose 117 H 101 H (74-99) mg/dL Calcium 8.8 7.6 L (8.4-10.2) mg/dL AST 48 H 59 H (14-36) U/L ALT 17 19 (4-34) U/L Alkaline Phosphatase <20 L 23 L (38-126) U/L Total Protein 3.9 L 5.1 L (6.3-8.2) g/dL Albumin 2.5 L 3.6 (3.5-5.0) g/dL Current Medications Generic Name Dose Route Start Last Admin Trade Name Freq PRN Reason Stop Dose Admin Acetaminophen 650 mg 12/08/21 06:46 Acetaminophen Tab 325 Mg Tab PO Q4HR PRN Fever and/ or Mild Pain Hydrocodone Bitart/Acetaminophen 1 each 12/08/21 01:42 Hydrocodone/Apap 5-325mg 1 Each Tab PO Q4HR PRN Moderate Pain (Scale 4 to 6) Albuterol/Ipratropium 3 ml 12/07/21 15:31 Ipratropium-Albuterol 3 Ml Neb INHALATION RT-Q2H PRN Shortness Of Breath Or Wheezing Albuterol/Ipratropium 3 ml 12/07/21 20:00 12/08/21 07:45 Ipratropium-Albuterol 3 Ml Neb INHALATION 3 ml RT-QID DEBORAH Administration Amiodarone HCl 400 mg 12/08/21 09:00 12/08/21 08:42 Amiodarone 200 Mg Tab PO 400 mg BID DEBORAH Administration Aspirin 325 mg 12/08/21 09:00 12/08/21 08:43 Aspirin 325 Mg Tab PO 325 mg DAILY DEBORAH Administration Atorvastatin Calcium 40 mg 12/08/21 09:00 12/08/21 08:42 Atorvastatin 40 Mg Tab PO 40 mg DAILY DEBORAH Administration Benzocaine/Menthol 1 each 12/07/21 15:31 Benzocaine/Menthol Lozeng 1 Each Lozenge MUCOUS MEM Q2H PRN Sore Throat Bisacodyl 10 mg 12/08/21 09:00 Bisacodyl 10 Mg Supp RECTAL DAILY PRN Constipation Cholecalciferol 50 mcg 12/08/21 09:00 12/08/21 08:43 Cholecalciferol 25 Mcg (1000 Iu) Tablet PO 50 mcg DAILY DEBORAH Administration Clopidogrel Bisulfate 75 mg 12/08/21 09:00 12/08/21 08:42 Clopidogrel 75 Mg Tab PO 75 mg DAILY DEBORAH Administration Dextrose/Water 25 ml 12/07/21 15:31 Dextrose 50% Syringe 50 Ml IVP PER PROTOCOL PRN Hypoglycemia Protocol Dextrose/Water 50 ml 12/07/21 15:31 Dextrose 50% Syringe 50 Ml IVP PER PROTOCOL PRN Hypoglycemia Protocol Enoxaparin Sodium 40 mg 12/08/21 09:00 12/08/21 08:43 Enoxaparin 40 Mg/0.4 Ml Syringe SQ 40 mg DAILY DEBORAH Administration Hydralazine HCl 10 mg 12/07/21 15:31 Hydralazine Hcl 20 Mg/Ml 1 Ml Vial IVP Q1H PRN Blood Pressure - High Clevidipine 25 mg/ IV Solution 50 mls @ 2 mls/hr 12/07/21 15:31 12/08/21 08:41 IV 4 mg/hr .Q24H DEBORAH 8 mls/hr Administration Protocol 1 MG/HR Amiodarone HCl 450 mg/ 250 mls @ 16.667 mls/hr 12/07/21 22:30 12/07/21 21:58 Dextrose/Water IV 12/08/21 16:29 0.5 mg/min .Q15H DEBORAH 16.667 mls/hr Administration Protocol 0.5 MG/MIN Amiodarone HCl 150 mg/ 103 mls @ 618 mls/hr 12/07/21 15:31 Dextrose/Water IV .Q10M PRN A.FIB/FLUTTER Albumin Human 250 ml/ IV 250 mls @ 250 mls/hr 12/07/21 15:31 12/08/21 00:35 Solution IVPB 12/09/21 15:32 250 mls/hr Q1HR PRN Administration For Volume Protocol Insulin Human Regular 100 unit 101 mls @ 0 mls/hr 12/07/21 16:15 12/08/21 06:44 / Sodium Chloride IV 5.5 units/hr .Q0M DEBORAH 5.555 mls/hr Titration Protocol Per Protocol Sodium Chloride 1,000 mls @ 20 mls/hr 12/07/21 15:31 12/07/21 16:26 Saline 0.9% IV 50 mls/hr .Q24H DEBORAH Administration Ketorolac Tromethamine 15 mg 12/08/21 07:15 12/08/21 08:02 Ketorolac 15 Mg/Ml 1 Ml Vial IVP 12/11/21 07:11 15 mg Q6HR DEBORAH Administration Levothyroxine Sodium 25 mcg 12/08/21 06:30 12/08/21 06:47 Levothyroxine 25 Mcg Tab PO 25 mcg DAILY@0630 DEBORAH Administration Lidocaine 1 patch 12/08/21 07:19 Lidocaine 5% Patch TOPICAL DAILY PRN Pain Protocol Magnesium Hydroxide 2,400 mg 12/08/21 09:00 Magnesium Hydroxide 2,400 Mg/10 Ml Cup PO BID PRN Constipation Metoclopramide HCl 10 mg 12/07/21 15:31 12/08/21 07:02 Metoclopramide 5 Mg/Ml 2 Ml Vial IVP 10 mg Q4H PRN Administration Nausea And Vomiting Metoprolol Tartrate 25 mg 12/08/21 09:00 12/08/21 08:42 Metoprolol Tartrate 25 Mg Tab PO 25 mg BID DEBORAH Administration Miscellaneous Information 1 each 12/07/21 15:31 Potassium Replacement Protocol 1 Each Misc MISCELLANE DAILY PRN Per Protocol Protocol Miscellaneous Information 1 each 12/07/21 15:31 Magnesium Replacement Protocol 1 Each Misc MISCELLANE DAILY PRN Per Protocol Protocol Multivitamins 1 each 12/08/21 09:00 12/08/21 08:42 Multivitamins, Thera 1 Each Tab PO 1 each DAILY DEBORAH Administration Mupirocin 1 applic 12/07/21 21:00 12/08/21 08:43 Mupirocin 2% Oint 22 Gm Tube NASAL 1 applic BID DEBORAH Administration Protocol Ondansetron HCl 4 mg 12/07/21 15:31 12/08/21 05:35 Ondansetron 4 Mg/2 Ml Vial IVP 4 mg Q6HR PRN Administration Nausea And Vomiting Pantoprazole Sodium 40 mg 12/08/21 21:00 Pantoprazole 40 Mg Tablet PO AC-BID DEBORAH Senna/Docusate Sodium 2 each 12/08/21 21:00 Sennosides-Docusate Sodium 1 Each Tab PO HS DEBORAH Sodium Chloride 10 ml 12/07/21 21:00 12/07/21 21:24 Sodium Chloride 0.9% Flush 10 Ml Syringe IV 10 ml BID DEBORAH Administration Intake and Output 12/07/21 12/08/21 12/08/21 22:59 06:59 14:59 Intake Total 7083.015 7784.469 44.154 Output Total 2065 865 Balance -393.594 739.469 44.154 Intake: IV 1285 1481 ACETAMINOPHEN IV (For NPO 100 ) 1,000 mg In Empty Bag 1 bag @ 400 mls/hr IVPB Q6HR DEBORAH Rx#:[id number] Albumin Human 5% 250 ml 250 In Empty Bag 1 bag @ 250 mls/hr IVPB Q1HR PRN Rx#: [id number] Magnesium Sulfate-D5w Pmx 200 1 gm In Dextrose/Water 1 100ml.bag @ 100 mls/hr IVPB Q1H DEBORAH Rx#: [id number] Potassium Chloride 10 meq 200 In Water For Injection 1 100ml.bag @ 100 mls/hr IVPB Q1H DEBORAH Rx#: [id number] Sodium Chloride 0.9% 1, 150 450 000 ml @ 20 mls/hr IV . Q24H DEBORAH Rx#:[id number] cardiac output 140 150 ceFAZolin 2 gm In Sodium 50 Chloride 0.9% 50 ml @ 100 mls/hr IVPB Q8HR DEBORAH Rx# :[id number] pressure bags 995 81 Intake, IV Titration 386.406 123.469 44.154 Amount ACETAMINOPHEN IV (For NPO 100 ) 1,000 mg In Empty Bag 1 bag @ 400 mls/hr IVPB Q6HR DEBORAH Rx#:[id number] Clevidipine Butyrate 25 39.866 24 13.867 mg In Empty Bag 1 bag @ 1 MG/HR 2 mls/hr IV .Q24H [facility]BORAH Rx#:[id number] Insulin Regular 100 unit 20.486 41.284 In Sodium Chloride 0.9% 100 ml @ Per Protocol IV .Q0M DEBORAH Rx#:[id number] Milrinone-D5w Pmx 20 mg 58.185 6.412 In Dextrose/Water 1 100ml .bag @ 0.2 MCG/KG/MIN 4. 05 mls/hr IV .Q24H [facility]AH Rx #:[id number] Nitroglycerin-D5w Pmx 50 23.875 mg In Dextrose/Water 1 250ml.bag @ 5 MCG/MIN 1.5 mls/hr IV .Q24H DEBORAH Rx#: [id number] Sodium Chloride 0.9% 1, 150 000 ml @ 20 mls/hr IV . Q24H DEBORAH Rx#:[id number] ceFAZolin 2 gm In Sodium 50 Chloride 0.9% 50 ml @ 100 mls/hr IVPB Q8HR [facility]BORAH Rx# :[id number] propofoL 1,000 mg In 26.054 Empty Bag 1 bag @ Titrate IV .Q0M DEBORAH Rx#: [id number] Output: Chest Tube Drainage 475 220 left pleural 160 55 mediastinal x2 220 140 right pleural 95 25 Drainage 20 left leg 20 Urine 1570 645 Other: Voiding Method Indwelling Catheter Indwelling Catheter Weight 71 kg 12/08/21 03:57 12/08/21 03:57 Assessment and Plan Assessment: Triple-vessel coronary artery disease, status post four-vessel CABG Hypertension Hyperlipidemia Plan: Continue with all current cardiac medications Continue to wean oxygen as tolerated, patient is encouraged to use incentive spirometer Increase activity as tolerated Continue with accurate I's and O's and daily weights Further recommendations based on clinical course The above impression and plan of care have been discussed and directed by the signing physician. Brandi Cloud, nurse practitioner, acting as scribe for signing physician.
[2021-12-08 10:55] LABS: Glucose,Whole Blood 79 mg/dL (70-110)
--- NOTE | 2021-12-08 12:04 | P.PN ---
Subjective Progress Note Date: 12/08/21 Principal diagnosis: Status post quadruple CABG postoperative day #1 This is an 80-year-old female with known history of hypertension and dyslipidemia patient has been developing dyspnea on exertion and chest discomfort. On 11/28, patient underwent cardiac catheterization, and she was found to have severe triple-vessel coronary artery disease, a right dominance, elevated left ventricular end-diastolic pressure. Patient was referred to surgery. Patient was seen by Samra, today the patient underwent myocardial revascularization. Postoperatively patient was kept on mechanical ventilation, and I was asked to see her on consultation. Presently the patient is in the ICU , she is on assist control rate of 16 volume 350 FiO2 50% and PEEP of 5 patient is on multiple drips including amiodarone 1 mg/m, nitroglycerin, propofol 50 mcg/m, milrinone, 0.2 mcg/kg/m, Cleviprex at 4 mg/h insulin at 2 units per hour. Patient has a cardiac output of 4.9 and cardiac index of 2.9. Chest x-ray showed small left pleural effusion with expected postoperative changes secondary to CABG. Reevaluated today on 12/08/21, patient remains in the ICU, she was extubated yesterday uneventfully. He is on 3 L nasal cannula. Remains on multiple drips including amiodarone at 0.5 mg/m, Cleviprex at 4 mg/h insulin at 5.5 units per hour patient is relatively asymptomatic, doing well, generally weak, able to achieve almost thousand cc with incentive spirometry. Chest x-ray showed chronic left lower lobe atelectasis and pleural effusion, small. No new process is noted. WBC scan 6.7 hemoglobin is 9.8. Basic metabolic profile is normal, renal profile is normal Objective - Vital Signs Vital signs: Vital Signs Temp 98.1 F 12/08/21 08:00 Pulse 63 12/08/21 10:00 Resp 30 H 12/08/21 10:00 BP 111/65 12/08/21 06:00 Pulse Ox 97 12/08/21 11:30 FiO2 50 12/07/21 23:00 Intake & Output 12/07/21 12/08/21 12/08/21 18:59 06:59 18:59 Intake Total 270.289 9339.621 285.916 Output Total 3500 1630 Balance -3147.746 1296.621 285.916 Weight 71 kg 71 kg Intake: IV 61 2708 ACETAMINOPHEN IV (For NPO 100 ) 1,000 mg In Empty Bag 1 bag @ 400 mls/hr IVPB Q6HR [facility] Rx#:[id number] Albumin Human 5% 250 ml 250 In Empty Bag 1 bag @ 250 mls/hr IVPB Q1HR PRN Rx#: [id number] Magnesium Sulfate-D5w Pmx 200 1 gm In Dextrose/Water 1 100ml.bag @ 100 mls/hr IVPB Q1H [facility] Rx#: [id number] Potassium Chloride 10 meq 200 In Water For Injection 1 100ml.bag @ 100 mls/hr IVPB Q1H [facility] Rx#: [id number] Sodium Chloride 0.9% 1, 600 000 ml @ 20 mls/hr IV . Q24H [facility] Rx#:[id number] cardiac output 40 250 ceFAZolin 2 gm In Sodium 50 Chloride 0.9% 50 ml @ 100 mls/hr IVPB Q8HR [facility] Rx# :[id number] pressure bags 18 1058 Intake, IV Titration 291.254 218.621 285.916 Amount ACETAMINOPHEN IV (For NPO 100 ) 1,000 mg In Empty Bag 1 bag @ 400 mls/hr IVPB Q6HR [facility] Rx#:[id number] Amiodarone 450 mg In 219.449 Dextrose 5% in Water 250 ml @ 0.5 MG/MIN 16.667 mls/hr IV .Q15H [facility] Rx#: [id number] Clevidipine Butyrate 25 15.200 48.666 13.867 mg In Empty Bag 1 bag @ 1 MG/HR 2 mls/hr IV .Q24H [facility] Rx#:[id number] Insulin Regular 100 unit 61.770 22.313 In Sodium Chloride 0.9% 100 ml @ Per Protocol IV .Q0M [facility] Rx#:[id number] Milrinone-D5w Pmx 20 mg 58.185 6.412 In Dextrose/Water 1 100ml .bag @ 0.2 MCG/KG/MIN 4. 05 mls/hr IV .Q24H [facility] Rx #:[id number] Nitroglycerin-D5w Pmx 50 23.875 mg In Dextrose/Water 1 250ml.bag @ 5 MCG/MIN 1.5 mls/hr IV .Q24H [facility] Rx#: [id number] Sodium Chloride 0.9% 1, 100 50 000 ml @ 20 mls/hr IV . Q24H [facility] Rx#:[id number] ceFAZolin 2 gm In Sodium 50 Chloride 0.9% 50 ml @ 100 mls/hr IVPB Q8HR [facility] Rx# :[id number] propofoL 1,000 mg In 26.054 Empty Bag 1 bag @ Titrate IV .Q0M [facility] Rx#: [id number] Output: Chest Tube Drainage 350 345 left pleural 120 95 mediastinal x2 165 195 right pleural 65 55 Drainage 20 left leg 20 Urine 1650 1265 Estimated Blood Loss 1500 Other: Voiding Method Indwelling Catheter Indwelling Catheter ABP, PAP, CO, CI - Last Documented Arterial Blood Pressure 115/49 Pulmonary Artery Pressure 29/12 Cardiac Output 4.1 Cardiac Index 2.4 - Exam Physical Exam: Revealed 80-year-old female in no distress , on 3 L nasal cannula. Head: Atraumatic, normocephalic. HEENT:[Neck is supple.] [No neck masses.] [No thyromegaly.] [No JVD.] Chest: Symmetrical chest expansion, diminished breath sounds at the bases no rhonchi no wheezes Cardiac Exam: Distant S1 and S2, no S3 gallop, positive pericardial rub. Abdomen: [Soft, nontender, no megaly, no rebound, no guarding, normal bowel sounds.] Extremities: [No clubbing, no edema, no cyanosis.] Neurological Exam: Alert and oriented 3 focal neurologic deficit psychiatric: Normal mood, affect and normal mental status examination. Skin: No rashes. - Labs CBC & Chem 7: 12/08/21 03:57 12/08/21 03:57 Labs: Abnormal Lab Results - Last 24 Hours (Table) 11/28/21 12/07/21 12/07/21 Range/Units 15:30 08:30 10:22 RBC (3.80-5.40) m/uL Hgb (11.4-16.0) gm/dL Hct (34.0-46.0) % Plt Count (150-450) k/uL Neutrophils # (1.3-7.7) k/uL Lymphocytes # (1.0-4.8) k/uL PT (9.0-12.0) sec INR (<1.2) APTT (22.0-30.0) sec ABG pH 7.46 H (7.35-7.45) ABG pCO2 (35-45) mmHg ABG pO2 263 H 274 H (83-108) mmHg ABG HCO3 26 H (21-25) mmol/L ABG Total CO2 27 H 27 H (19-24) mmol/L ABG O2 Saturation 99.6 H 99.6 H (94-97) % ABG Hematocrit (34.0-46.0) % ABG Sodium (135-146) mmol/L ABG Ionized Calcium (4.5-5.3) mg/dL ABG Glucose 113 H 159 H (75-99) mg/dL ABG Lactic Acid (0.5-1.6) mmol/L Hemoglobin 11.1 L (11.4-16.0) gm/dL Sodium (137-145) mmol/L BUN (7-17) mg/dL Glucose (74-99) mg/dL POC Glucose (mg/dL) (70-110) mg/dL Calcium (8.4-10.2) mg/dL Ionized Calcium Elliott (4.5-5.3) mg/dL AST (14-36) U/L Alkaline Phosphatase (38-126) U/L Total Protein (6.3-8.2) g/dL Albumin (3.5-5.0) g/dL Arterial Blood Glucose 113 H 159 H (75-99) mg/dL Crossmatch See Detail 12/07/21 12/07/21 12/07/21 Range/Units 10:56 11:37 12:15 RBC (3.80-5.40) m/uL Hgb (11.4-16.0) gm/dL Hct (34.0-46.0) % Plt Count (150-450) k/uL Neutrophils # (1.3-7.7) k/uL Lymphocytes # (1.0-4.8) k/uL PT (9.0-12.0) sec INR (<1.2) APTT (22.0-30.0) sec ABG pH (7.35-7.45) ABG pCO2 34 L (35-45) mmHg ABG pO2 >420 H 356 H 373 H (83-108) mmHg ABG HCO3 20 L 27 H 26 H (21-25) mmol/L ABG Total CO2 28 H 28 H (19-24) mmol/L ABG O2 Saturation 100.0 H 99.9 H 99.9 H (94-97) % ABG Hematocrit 22 L 23 L 20 L* (34.0-46.0) % ABG Sodium 133 L (135-146) mmol/L ABG Ionized Calcium 3.7 L 4.1 L 3.9 L (4.5-5.3) mg/dL ABG Glucose 124 H 148 H 164 H (75-99) mg/dL ABG Lactic Acid 1.9 H 1.8 H (0.5-1.6) mmol/L Hemoglobin 7.3 L 7.5 L 6.7 L* (11.4-16.0) gm/dL Sodium (137-145) mmol/L BUN (7-17) mg/dL Glucose (74-99) mg/dL POC Glucose (mg/dL) (70-110) mg/dL Calcium (8.4-10.2) mg/dL Ionized Calcium Elliott (4.5-5.3) mg/dL AST (14-36) U/L Alkaline Phosphatase (38-126) U/L Total Protein (6.3-8.2) g/dL Albumin (3.5-5.0) g/dL Arterial Blood Glucose 124 H 148 H 164 H (75-99) mg/dL Crossmatch 12/07/21 12/07/21 12/07/21 Range/Units 12:55 14:02 15:35 RBC (3.80-5.40) m/uL Hgb (11.4-16.0) gm/dL Hct (34.0-46.0) % Plt Count (150-450) k/uL Neutrophils # (1.3-7.7) k/uL Lymphocytes # (1.0-4.8) k/uL PT (9.0-12.0) sec INR (<1.2) APTT (22.0-30.0) sec ABG pH 7.33 L (7.35-7.45) ABG pCO2 (35-45) mmHg ABG pO2 333 H 389 H (83-108) mmHg ABG HCO3 26 H (21-25) mmol/L ABG Total CO2 27 H (19-24) mmol/L ABG O2 Saturation 99.7 H 99.6 H (94-97) % ABG Hematocrit 21 L 24 L (34.0-46.0) % ABG Sodium (135-146) mmol/L ABG Ionized Calcium 3.9 L (4.5-5.3) mg/dL ABG Glucose 148 H 183 H (75-99) mg/dL ABG Lactic Acid 2.4 H* 4.6 H* (0.5-1.6) mmol/L Hemoglobin 6.8 L* 7.7 L (11.4-16.0) gm/dL Sodium (137-145) mmol/L BUN (7-17) mg/dL Glucose (74-99) mg/dL POC Glucose (mg/dL) 129 H (70-110) mg/dL Calcium (8.4-10.2) mg/dL Ionized Calcium Elliott (4.5-5.3) mg/dL AST (14-36) U/L Alkaline Phosphatase (38-126) U/L Total Protein (6.3-8.2) g/dL Albumin (3.5-5.0) g/dL Arterial Blood Glucose 148 H 183 H (75-99) mg/dL Crossmatch 12/07/21 12/07/21 12/07/21 Range/Units 15:36 15:36 15:36 RBC 2.89 L (3.80-5.40) m/uL Hgb 8.6 L D (11.4-16.0) gm/dL Hct 27.3 L (34.0-46.0) % Plt Count 114 L D (150-450) k/uL Neutrophils # (1.3-7.7) k/uL Lymphocytes # 0.7 L (1.0-4.8) k/uL PT 12.4 H (9.0-12.0) sec INR 1.2 H (<1.2) APTT 36.3 H (22.0-30.0) sec ABG pH (7.35-7.45) ABG pCO2 (35-45) mmHg ABG pO2 (83-108) mmHg ABG HCO3 (21-25) mmol/L ABG Total CO2 (19-24) mmol/L ABG O2 Saturation (94-97) % ABG Hematocrit (34.0-46.0) % ABG Sodium (135-146) mmol/L ABG Ionized Calcium (4.5-5.3) mg/dL ABG Glucose (75-99) mg/dL ABG Lactic Acid (0.5-1.6) mmol/L Hemoglobin (11.4-16.0) gm/dL Sodium (137-145) mmol/L BUN 20 H (7-17) mg/dL Glucose 117 H (74-99) mg/dL POC Glucose (mg/dL) (70-110) mg/dL Calcium (8.4-10.2) mg/dL Ionized Calcium Elliott (4.5-5.3) mg/dL AST 48 H (14-36) U/L Alkaline Phosphatase <20 L (38-126) U/L Total Protein 3.9 L (6.3-8.2) g/dL Albumin 2.5 L (3.5-5.0) g/dL Arterial Blood Glucose (75-99) mg/dL Crossmatch 12/07/21 12/07/21 12/07/21 Range/Units 16:15 17:09 17:09 RBC 3.55 L (3.80-5.40) m/uL Hgb 11.1 L (11.4-16.0) gm/dL Hct 33.6 L (34.0-46.0) % Plt Count (150-450) k/uL Neutrophils # (1.3-7.7) k/uL Lymphocytes # 0.8 L (1.0-4.8) k/uL PT (9.0-12.0) sec INR (<1.2) APTT (22.0-30.0) sec ABG pH 7.31 L (7.35-7.45) ABG pCO2 49 H (35-45) mmHg ABG pO2 302 H (83-108) mmHg ABG HCO3 (21-25) mmol/L ABG Total CO2 26 H (19-24) mmol/L ABG O2 Saturation 99.9 H (94-97) % ABG Hematocrit 29 L (34.0-46.0) % ABG Sodium (135-146) mmol/L ABG Ionized Calcium (4.5-5.3) mg/dL ABG Glucose (75-99) mg/dL ABG Lactic Acid (0.5-1.6) mmol/L Hemoglobin 9.4 L (11.4-16.0) gm/dL Sodium (137-145) mmol/L BUN (7-17) mg/dL Glucose (74-99) mg/dL POC Glucose (mg/dL) 151 H (70-110) mg/dL Calcium (8.4-10.2) mg/dL Ionized Calcium Elliott (4.5-5.3) mg/dL AST (14-36) U/L Alkaline Phosphatase (38-126) U/L Total Protein (6.3-8.2) g/dL Albumin (3.5-5.0) g/dL Arterial Blood Glucose (75-99) mg/dL Crossmatch 12/07/21 12/07/21 12/07/21 Range/Units 18:04 19:01 19:40 RBC (3.80-5.40) m/uL Hgb (11.4-16.0) gm/dL Hct (34.0-46.0) % Plt Count (150-450) k/uL Neutrophils # (1.3-7.7) k/uL Lymphocytes # (1.0-4.8) k/uL PT (9.0-12.0) sec INR (<1.2) APTT (22.0-30.0) sec ABG pH (7.35-7.45) ABG pCO2 (35-45) mmHg ABG pO2 (83-108) mmHg ABG HCO3 (21-25) mmol/L ABG Total CO2 (19-24) mmol/L ABG O2 Saturation (94-97) % ABG Hematocrit (34.0-46.0) % ABG Sodium (135-146) mmol/L ABG Ionized Calcium (4.5-5.3) mg/dL ABG Glucose (75-99) mg/dL ABG Lactic Acid (0.5-1.6) mmol/L Hemoglobin (11.4-16.0) gm/dL Sodium (137-145) mmol/L BUN (7-17) mg/dL Glucose (74-99) mg/dL POC Glucose (mg/dL) 199 H 198 H 212 H (70-110) mg/dL Calcium (8.4-10.2) mg/dL Ionized Calcium Elliott (4.5-5.3) mg/dL AST (14-36) U/L Alkaline Phosphatase (38-126) U/L Total Protein (6.3-8.2) g/dL Albumin (3.5-5.0) g/dL Arterial Blood Glucose (75-99) mg/dL Crossmatch 12/07/21 12/07/21 12/07/21 Range/Units 19:42 20:52 20:54 RBC 3.71 L (3.80-5.40) m/uL Hgb (11.4-16.0) gm/dL Hct (34.0-46.0) % Plt Count (150-450) k/uL Neutrophils # 8.8 H (1.3-7.7) k/uL Lymphocytes # (1.0-4.8) k/uL PT (9.0-12.0) sec INR (<1.2) APTT (22.0-30.0) sec ABG pH (7.35-7.45) ABG pCO2 (35-45) mmHg ABG pO2 (83-108) mmHg ABG HCO3 (21-25) mmol/L ABG Total CO2 (19-24) mmol/L ABG O2 Saturation 97.9 H (94-97) % ABG Hematocrit 33 L (34.0-46.0) % ABG Sodium (135-146) mmol/L ABG Ionized Calcium (4.5-5.3) mg/dL ABG Glucose (75-99) mg/dL ABG Lactic Acid (0.5-1.6) mmol/L Hemoglobin 10.7 L (11.4-16.0) gm/dL Sodium (137-145) mmol/L BUN (7-17) mg/dL Glucose (74-99) mg/dL POC Glucose (mg/dL) 210 H (70-110) mg/dL Calcium (8.4-10.2) mg/dL Ionized Calcium Elliott (4.5-5.3) mg/dL AST (14-36) U/L Alkaline Phosphatase (38-126) U/L Total Protein (6.3-8.2) g/dL Albumin (3.5-5.0) g/dL Arterial Blood Glucose (75-99) mg/dL Crossmatch 12/07/21 12/07/21 12/08/21 Range/Units 21:52 23:01 00:28 RBC (3.80-5.40) m/uL Hgb (11.4-16.0) gm/dL Hct (34.0-46.0) % Plt Count (150-450) k/uL Neutrophils # (1.3-7.7) k/uL Lymphocytes # (1.0-4.8) k/uL PT (9.0-12.0) sec INR (<1.2) APTT (22.0-30.0) sec ABG pH (7.35-7.45) ABG pCO2 (35-45) mmHg ABG pO2 (83-108) mmHg ABG HCO3 (21-25) mmol/L ABG Total CO2 (19-24) mmol/L ABG O2 Saturation (94-97) % ABG Hematocrit (34.0-46.0) % ABG Sodium (135-146) mmol/L ABG Ionized Calcium (4.5-5.3) mg/dL ABG Glucose (75-99) mg/dL ABG Lactic Acid (0.5-1.6) mmol/L Hemoglobin (11.4-16.0) gm/dL Sodium (137-145) mmol/L BUN (7-17) mg/dL Glucose (74-99) mg/dL POC Glucose (mg/dL) 199 H 156 H 155 H (70-110) mg/dL Calcium (8.4-10.2) mg/dL Ionized Calcium Elliott (4.5-5.3) mg/dL AST (14-36) U/L Alkaline Phosphatase (38-126) U/L Total Protein (6.3-8.2) g/dL Albumin (3.5-5.0) g/dL Arterial Blood Glucose (75-99) mg/dL Crossmatch 12/08/21 12/08/21 12/08/21 Range/Units 01:50 02:47 03:57 RBC 3.14 L (3.80-5.40) m/uL Hgb 9.8 L D (11.4-16.0) gm/dL Hct 29.6 L (34.0-46.0) % Plt Count (150-450) k/uL Neutrophils # (1.3-7.7) k/uL Lymphocytes # 0.5 L (1.0-4.8) k/uL PT (9.0-12.0) sec INR (<1.2) APTT (22.0-30.0) sec ABG pH (7.35-7.45) ABG pCO2 (35-45) mmHg ABG pO2 (83-108) mmHg ABG HCO3 (21-25) mmol/L ABG Total CO2 (19-24) mmol/L ABG O2 Saturation (94-97) % ABG Hematocrit (34.0-46.0) % ABG Sodium (135-146) mmol/L ABG Ionized Calcium (4.5-5.3) mg/dL ABG Glucose (75-99) mg/dL ABG Lactic Acid (0.5-1.6) mmol/L Hemoglobin (11.4-16.0) gm/dL Sodium (137-145) mmol/L BUN (7-17) mg/dL Glucose (74-99) mg/dL POC Glucose (mg/dL) 117 H 115 H (70-110) mg/dL Calcium (8.4-10.2) mg/dL Ionized Calcium Elliott (4.5-5.3) mg/dL AST (14-36) U/L Alkaline Phosphatase (38-126) U/L Total Protein (6.3-8.2) g/dL Albumin (3.5-5.0) g/dL Arterial Blood Glucose (75-99) mg/dL Crossmatch 12/08/21 12/08/21 12/08/21 Range/Units 03:57 05:31 06:43 RBC (3.80-5.40) m/uL Hgb (11.4-16.0) gm/dL Hct (34.0-46.0) % Plt Count (150-450) k/uL Neutrophils # (1.3-7.7) k/uL Lymphocytes # (1.0-4.8) k/uL PT (9.0-12.0) sec INR (<1.2) APTT (22.0-30.0) sec ABG pH (7.35-7.45) ABG pCO2 (35-45) mmHg ABG pO2 (83-108) mmHg ABG HCO3 (21-25) mmol/L ABG Total CO2 (19-24) mmol/L ABG O2 Saturation (94-97) % ABG Hematocrit (34.0-46.0) % ABG Sodium (135-146) mmol/L ABG Ionized Calcium (4.5-5.3) mg/dL ABG Glucose (75-99) mg/dL ABG Lactic Acid (0.5-1.6) mmol/L Hemoglobin (11.4-16.0) gm/dL Sodium 135 L (137-145) mmol/L BUN (7-17) mg/dL Glucose 101 H (74-99) mg/dL POC Glucose (mg/dL) 138 H 173 H (70-110) mg/dL Calcium 7.6 L (8.4-10.2) mg/dL Ionized Calcium Elliott 4.3 L (4.5-5.3) mg/dL AST 59 H (14-36) U/L Alkaline Phosphatase 23 L (38-126) U/L Total Protein 5.1 L (6.3-8.2) g/dL Albumin (3.5-5.0) g/dL Arterial Blood Glucose (75-99) mg/dL Crossmatch 12/08/21 12/08/21 Range/Units 08:15 10:38 RBC (3.80-5.40) m/uL Hgb (11.4-16.0) gm/dL Hct (34.0-46.0) % Plt Count (150-450) k/uL Neutrophils # (1.3-7.7) k/uL Lymphocytes # (1.0-4.8) k/uL PT (9.0-12.0) sec INR (<1.2) APTT (22.0-30.0) sec ABG pH (7.35-7.45) ABG pCO2 (35-45) mmHg ABG pO2 (83-108) mmHg ABG HCO3 (21-25) mmol/L ABG Total CO2 (19-24) mmol/L ABG O2 Saturation (94-97) % ABG Hematocrit (34.0-46.0) % ABG Sodium (135-146) mmol/L ABG Ionized Calcium (4.5-5.3) mg/dL ABG Glucose (75-99) mg/dL ABG Lactic Acid (0.5-1.6) mmol/L Hemoglobin (11.4-16.0) gm/dL Sodium (137-145) mmol/L BUN (7-17) mg/dL Glucose (74-99) mg/dL POC Glucose (mg/dL) 130 H 67 L (70-110) mg/dL Calcium (8.4-10.2) mg/dL Ionized Calcium Elliott (4.5-5.3) mg/dL AST (14-36) U/L Alkaline Phosphatase (38-126) U/L Total Protein (6.3-8.2) g/dL Albumin (3.5-5.0) g/dL Arterial Blood Glucose (75-99) mg/dL Crossmatch Assessment and Plan Assessment: Impression: Status post CABG for triple vessel coronary artery disease, postoperative day #1 Benign essential hypertension Degenerative joint disease History of GI bleeding History of GERD History of hypothyroidism History of overactive bladder Chronic low back pain Remote smoking history quit smoking in 2005 Recommendation: Maximize medical therapy with beta blockers and statins and aspirin and Plavix, patient has been weaned from Primacor, and being weaned from Cleviprex. Continue amiodarone for atrial fibrillation prophylaxis and transition to oral. Incentive spirometry Early ambulation Continue GI and DVT prophylaxis Continue insulin Continue updrafts Continue pain control management. Continue to monitor daily x-rays of the chest. We'll continue to follow. Time with Patient: Less than 30
[2021-12-08 12:12] LABS: Glucose,Whole Blood 138 mg/dL (70-110)
[2021-12-08 13:09] LABS: Glucose,Whole Blood 146 mg/dL (70-110)
[2021-12-08] MEDS: SODIUM CHLORIDE 0.9% 1,000 ML IV SCH (14:55)
[2021-12-08 15:10] LABS: Glucose,Whole Blood 130 mg/dL (70-110)
[2021-12-08 17:33] LABS: Glucose,Whole Blood 123 mg/dL (70-110)
[2021-12-08] MEDS ORDERED: DEXTROSE 50% SYRINGE 50 ML IVP PRN ×2 (17:57)
[2021-12-08] MEDS: hydrALAZINE HCL 20 MG/ML 1 ML VIAL IVP PRN (18:07)
[2021-12-08] MEDS: ACETAMINOPHEN TAB 500 MG TAB PO PRN ×2 (18:35→23:54)
--- NOTE | 2021-12-08 20:07 | P.CONS ---
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 Patient is doing well with no chest pain or dyspnea. No abdominal pain. No vomiting. No urinary complaints. No fever. He is hemodynamically stable. Labs reviewed. Hemoglobin 9.8. He is on insulin drip and aspirin 325 mg also he is on Toprol and amiodarone Review of Systems Review of systems CONSTITUTIONAL: No fever, no malaise, no fatigue. HEENT: No recent visual problems or hearing problems. Denied any sore throat. CARDIOVASCULAR: No orthopnea, PND, no palpitations, no syncope. PULMONARY: No shortness of breath, no cough, no hemoptysis. GASTROINTESTINAL: No diarrhea, no nausea, no vomiting, no abdominal pain. Normoactive bowel sounds. NEUROLOGICAL: No headaches, no weakness, no numbness. HEMATOLOGICAL: Denies any bleeding or petechiae. GENITOURINARY: Denies any burning micturition, frequency, or urgency. MUSCULOSKELETAL/RHEUMATOLOGICAL: Denies any joint pain, swelling, or any muscle pain. ENDOCRINE: Denies any polyuria or polydipsia. Past Medical History Past Medical History: GERD/Reflux, GI Bleed, Hyperlipidemia, Hypertension, Osteoarthritis (OA), Thyroid Disorder Additional Past Medical History / Comment(s): increased fatigue and SOB w/ activity,HX OF DIVERTICULAR BLEED, states had 5 transfusions, bleed "caused by pain medication use." NOT ABLE TO FULLY BEND LEFT KNEE. Urinary frequency, Osteoporosis. States "scar tissue with implants.", Hiatal Hernia., states terrible heartburn & burning pain when she inhales cold air. History of Any Multi-Drug Resistant Organisms: None Reported Past Surgical History: Back Surgery, Section, Heart Catheterization, Hysterectomy, Joint Replacement, Orthopedic Surgery, Tonsillectomy Additional Past Surgical History / Comment(s): CERVICAL FUSION FROM C3-7. Bilateral KNEE REPLACEMENTS WITH (3 lt total knee surgeries,1 rt knee) . EGD. Bilateral cataract surgery. Colonoscopy. Has had epidurals for pain, and "nerve burning." Past Anesthesia/Blood Transfusion Reactions: No Reported Reaction Additional Past Anesthesia/Blood Transfusion Reaction / Comm: No problem with transfusions. Smoking Status: Former smoker - Past Family History Mother Additional Family Medical History / Comment(s): Cerebral hemorrhage at age 51. Father Family Medical History: COPD Additional Family Medical History / Comment(s): Emphysema. Medications and Allergies Home Medications Medication Instructions Recorded Confirmed Type RX: Cholecalciferol [Vitamin D3 50 mcg PO DAILY 05/03/15 12/07/21 History (25 Mcg = 1000 Iu)] RX: Levothyroxine Sodium 25 mcg PO DAILY 10/01/19 12/07/21 History RX: Metoprolol Succinate (ER) 25 mg PO DAILY 10/01/19 12/07/21 History [Toprol XL] RX: Aspirin [Adult Low Dose 81 mg PO DAILY 08/11/20 12/07/21 History Aspirin EC] RX: Ibuprofen [Motrin Ib] 200 - 400 mg PO Q8H PRN 02/09/21 12/07/21 History RX: Pantoprazole [Protonix] 40 mg PO BID 06/22/21 12/07/21 History RX: Sucralfate [Carafate] 1 gm PO QID 09/08/21 12/07/21 History RX: Lidocaine 5% Patch [Lidoderm 1 patch TOPICAL DAILY PRN 30 Days 09/11/21 12/07/21 Rx 5% Patch] #30 patch RX: Cannabidiol (Cbd) [Epidiolex] 1 dose TOPICAL DAILY PRN 11/27/21 12/07/21 History RX: Mirabegron [Myrbetriq] 25 mg PO DAILY 11/27/21 12/07/21 History RX: Multivit-Min/Iron/Folic/Lutein 1 each PO DAILY 11/27/21 12/07/21 History [Centrum Silver Women Tablet] RX: Isosorbide Mononitrate ER 30 mg PO DAILY #90 tab 11/28/21 12/07/21 Rx [Imdur] RX: Mupirocin 2% Oint [Bactroban 1 applic NASAL BID 5 Days #22 gm 11/28/21 12/07/21 Rx 2% Oint] Allergies Allergy/AdvReac Type Severity Reaction Status Date / Time nickel Allergy developes Verified 12/07/21 06:08 scar tissue Sulfa (Sulfonamide Allergy Rash/Hives Verified 12/07/21 06:08 Antibiotics) codeine AdvReac Nausea & Verified 12/07/21 06:08 Vomiting Physical Exam Vitals: Vital Signs Temp Pulse Resp BP Pulse Ox FiO2 12/08/21 11:30 97 12/08/21 11:00 97 12/08/21 10:30 97 12/08/21 10:00 63 30 H 98 12/08/21 09:30 70 23 96 12/08/21 09:00 77 56 H 94 L 12/08/21 08:30 77 14 94 L 12/08/21 08:00 98.1 F 77 12 98 12/08/21 07:45 90 12/08/21 07:30 75 32 H 96 12/08/21 07:00 74 22 95 12/08/21 06:30 75 24 93 L 12/08/21 06:00 78 22 111/65 92 L 12/08/21 05:00 80 17 106/64 97 12/08/21 04:00 98.1 F 81 18 109/63 96 12/08/21 03:59 14 12/08/21 03:00 82 14 113/64 95 12/08/21 02:00 86 20 114/67 97 12/08/21 01:00 85 18 114/67 97 12/08/21 00:00 98.1 F 18 113/66 94 L 12/07/21 23:17 94 L 12/07/21 23:00 93 22 122/77 97 50 12/07/21 22:00 104 H 19 114/64 96 12/07/21 21:00 26 H 96 50 12/07/21 20:10 50 12/07/21 20:05 50 12/07/21 20:00 96.8 F L 118 H 16 115/66 97 50 12/07/21 19:55 50 12/07/21 19:52 113 H 12/07/21 19:50 50 12/07/21 19:45 16 50 12/07/21 19:40 50 12/07/21 19:35 50 12/07/21 19:30 50 12/07/21 19:25 50 12/07/21 19:20 50 12/07/21 19:15 104 H 12 96 50 12/07/21 19:10 50 12/07/21 19:05 50 12/07/21 19:00 103 H 14 96 50 12/07/21 18:45 102 H 16 96 12/07/21 18:30 104 H 12 96 12/07/21 18:15 103 H 11 L 95 12/07/21 18:00 104 H 17 95 12/07/21 17:45 101 H 16 94 L 12/07/21 17:30 101 H 13 94 L 12/07/21 17:15 102 H 13 95 12/07/21 17:00 103 H 16 95 50 12/07/21 16:45 102 H 13 95 12/07/21 16:42 103 H 12/07/21 16:32 105 H 12/07/21 16:30 104 H 16 12/07/21 16:28 50 12/07/21 16:15 106 H 11 L 98 12/07/21 16:00 106 H 14 99 12/07/21 15:45 103 H 19 98 12/07/21 15:30 95.2 F L 108 H 19 99 100 12/07/21 15:23 28 H 12/07/21 15:22 100 Intake and Output 12/07/21 12/08/21 12/08/21 22:59 06:59 14:59 Intake Total 9303.140 2164.469 285.916 Output Total 2065 865 Balance -393.594 739.469 285.916 Intake: IV 1285 1481 ACETAMINOPHEN IV (For NPO 100 ) 1,000 mg In Empty Bag 1 bag @ 400 mls/hr IVPB Q6HR [facility] Rx#:[id number] Albumin Human 5% 250 ml 250 In Empty Bag 1 bag @ 250 mls/hr IVPB Q1HR PRN Rx#: [id number] Magnesium Sulfate-D5w Pmx 200 1 gm In Dextrose/Water 1 100ml.bag @ 100 mls/hr IVPB Q1H [facility] Rx#: [id number] Potassium Chloride 10 meq 200 In Water For Injection 1 100ml.bag @ 100 mls/hr IVPB Q1H [facility] Rx#: [id number] Sodium Chloride 0.9% 1, 150 450 000 ml @ 20 mls/hr IV . Q24H [facility] Rx#:[id number] cardiac output 140 150 ceFAZolin 2 gm In Sodium 50 Chloride 0.9% 50 ml @ 100 mls/hr IVPB Q8HR [facility] Rx# :[id number] pressure bags 995 81 Intake, IV Titration 386.406 123.469 285.916 Amount ACETAMINOPHEN IV (For NPO 100 ) 1,000 mg In Empty Bag 1 bag @ 400 mls/hr IVPB Q6HR [facility] Rx#:[id number] Amiodarone 450 mg In 219.449 Dextrose 5% in Water 250 ml @ 0.5 MG/MIN 16.667 mls/hr IV .Q15H [facility] Rx#: [id number] Clevidipine Butyrate 25 39.866 24 13.867 mg In Empty Bag 1 bag @ 1 MG/HR 2 mls/hr IV .Q24H [facility] Rx#:[id number] Insulin Regular 100 unit 20.486 41.284 22.313 In Sodium Chloride 0.9% 100 ml @ Per Protocol IV .Q0M [facility] Rx#:[id number] Milrinone-D5w Pmx 20 mg 58.185 6.412 In Dextrose/Water 1 100ml .bag @ 0.2 MCG/KG/MIN 4. 05 mls/hr IV .Q24H [facility] Rx #:[id number] Nitroglycerin-D5w Pmx 50 23.875 mg In Dextrose/Water 1 250ml.bag @ 5 MCG/MIN 1.5 mls/hr IV .Q24H [facility] Rx#: [id number] Sodium Chloride 0.9% 1, 150 000 ml @ 20 mls/hr IV . Q24H [facility] Rx#:[id number] ceFAZolin 2 gm In Sodium 50 Chloride 0.9% 50 ml @ 100 mls/hr IVPB Q8HR [facility] Rx# :[id number] propofoL 1,000 mg In 26.054 Empty Bag 1 bag @ Titrate IV .Q0M [facility] Rx#: [id number] Output: Chest Tube Drainage 475 220 left pleural 160 55 mediastinal x2 220 140 right pleural 95 25 Drainage 20 left leg 20 Urine 1570 645 Other: Voiding Method Indwelling Catheter Indwelling Catheter Weight 71 kg 71 kg ABP, PAP, CO, CI - Last 8 Hours Arterial Blood Pressure 115/49 Arterial Blood Pressure 122/48 Arterial Blood Pressure 117/50 Arterial Blood Pressure 128/55 Arterial Blood Pressure 138/56 Arterial Blood Pressure 150/58 Arterial Blood Pressure 136/51 Arterial Blood Pressure 147/55 Arterial Blood Pressure 139/53 Arterial Blood Pressure 131/54 Arterial Blood Pressure 133/54 Arterial Blood Pressure 129/52 Pulmonary Artery Pressure 29/12 Pulmonary Artery Pressure 21/8 Pulmonary Artery Pressure 20/7 Pulmonary Artery Pressure 22/7 Pulmonary Artery Pressure 22/9 Pulmonary Artery Pressure 24/10 Pulmonary Artery Pressure 23/7 Pulmonary Artery Pressure 23/8 Pulmonary Artery Pressure 23/9 Pulmonary Artery Pressure 23/11 Pulmonary Artery Pressure 29/14 Pulmonary Artery Pressure 29/14 Cardiac Output 4.1 Cardiac Output 4.1 Cardiac Output 4.1 Cardiac Output 4.1 Cardiac Output 4.1 Cardiac Output 3.8 Cardiac Output 3.8 Cardiac Output 3.8 Cardiac Index 2.4 Cardiac Index 2.4 Cardiac Index 2.4 GENERAL: The patient is alert and oriented x3, not in any acute distress. Well developed, well nourished. HEENT: Pupils are round and equally reacting to light. EOMI. No scleral icterus. No conjunctival pallor. Normocephalic, atraumatic. No pharyngeal erythema. No thyromegaly. -CARDIOVASCULAR: S1 and S2 present. No murmurs, rubs, or gallops. Surgical wound with addressed in a Place PULMONARY: Chest is clear to auscultation, no wheezing or crackles. ABDOMEN: Soft, nontender, nondistended, normoactive bowel sounds. No palpable organomegaly. MUSCULOSKELETAL: No joint swelling or deformity. EXTREMITIES: No cyanosis, clubbing, or pedal edema. NEUROLOGICAL: Gross neurological examination did not reveal any focal deficits. SKIN: No rashes. no petechiae. Results CBC & Chem 7: 12/08/21 03:57 12/08/21 03:57 Labs: Abnormal Lab Results - Last 24 Hours (Table) 11/28/21 12/07/21 12/07/21 Range/Units 15:30 08:30 10:22 RBC (3.80-5.40) m/uL Hgb (11.4-16.0) gm/dL Hct (34.0-46.0) % Plt Count (150-450) k/uL Neutrophils # (1.3-7.7) k/uL Lymphocytes # (1.0-4.8) k/uL PT (9.0-12.0) sec INR (<1.2) APTT (22.0-30.0) sec ABG pH 7.46 H (7.35-7.45) ABG pCO2 (35-45) mmHg ABG pO2 263 H 274 H (83-108) mmHg ABG HCO3 26 H (21-25) mmol/L ABG Total CO2 27 H 27 H (19-24) mmol/L ABG O2 Saturation 99.6 H 99.6 H (94-97) % ABG Hematocrit (34.0-46.0) % ABG Sodium (135-146) mmol/L ABG Ionized Calcium (4.5-5.3) mg/dL ABG Glucose 113 H 159 H (75-99) mg/dL ABG Lactic Acid (0.5-1.6) mmol/L Hemoglobin 11.1 L (11.4-16.0) gm/dL Sodium (137-145) mmol/L BUN (7-17) mg/dL Glucose (74-99) mg/dL POC Glucose (mg/dL) (70-110) mg/dL Calcium (8.4-10.2) mg/dL Ionized Calcium Elliott (4.5-5.3) mg/dL AST (14-36) U/L Alkaline Phosphatase (38-126) U/L Total Protein (6.3-8.2) g/dL Albumin (3.5-5.0) g/dL Arterial Blood Glucose 113 H 159 H (75-99) mg/dL Crossmatch See Detail 12/07/21 12/07/21 12/07/21 Range/Units 10:56 11:37 12:15 RBC (3.80-5.40) m/uL Hgb (11.4-16.0) gm/dL Hct (34.0-46.0) % Plt Count (150-450) k/uL Neutrophils # (1.3-7.7) k/uL Lymphocytes # (1.0-4.8) k/uL PT (9.0-12.0) sec INR (<1.2) APTT (22.0-30.0) sec ABG pH (7.35-7.45) ABG pCO2 34 L (35-45) mmHg ABG pO2 >420 H 356 H 373 H (83-108) mmHg ABG HCO3 20 L 27 H 26 H (21-25) mmol/L ABG Total CO2 28 H 28 H (19-24) mmol/L ABG O2 Saturation 100.0 H 99.9 H 99.9 H (94-97) % ABG Hematocrit 22 L 23 L 20 L* (34.0-46.0) % ABG Sodium 133 L (135-146) mmol/L ABG Ionized Calcium 3.7 L 4.1 L 3.9 L (4.5-5.3) mg/dL ABG Glucose 124 H 148 H 164 H (75-99) mg/dL ABG Lactic Acid 1.9 H 1.8 H (0.5-1.6) mmol/L Hemoglobin 7.3 L 7.5 L 6.7 L* (11.4-16.0) gm/dL Sodium (137-145) mmol/L BUN (7-17) mg/dL Glucose (74-99) mg/dL POC Glucose (mg/dL) (70-110) mg/dL Calcium (8.4-10.2) mg/dL Ionized Calcium Elliott (4.5-5.3) mg/dL AST (14-36) U/L Alkaline Phosphatase (38-126) U/L Total Protein (6.3-8.2) g/dL Albumin (3.5-5.0) g/dL Arterial Blood Glucose 124 H 148 H 164 H (75-99) mg/dL Crossmatch 12/07/21 12/07/21 12/07/21 Range/Units 12:55 14:02 15:35 RBC (3.80-5.40) m/uL Hgb (11.4-16.0) gm/dL Hct (34.0-46.0) % Plt Count (150-450) k/uL Neutrophils # (1.3-7.7) k/uL Lymphocytes # (1.0-4.8) k/uL PT (9.0-12.0) sec INR (<1.2) APTT (22.0-30.0) sec ABG pH 7.33 L (7.35-7.45) ABG pCO2 (35-45) mmHg ABG pO2 333 H 389 H (83-108) mmHg ABG HCO3 26 H (21-25) mmol/L ABG Total CO2 27 H (19-24) mmol/L ABG O2 Saturation 99.7 H 99.6 H (94-97) % ABG Hematocrit 21 L 24 L (34.0-46.0) % ABG Sodium (135-146) mmol/L ABG Ionized Calcium 3.9 L (4.5-5.3) mg/dL ABG Glucose 148 H 183 H (75-99) mg/dL ABG Lactic Acid 2.4 H* 4.6 H* (0.5-1.6) mmol/L Hemoglobin 6.8 L* 7.7 L (11.4-16.0) gm/dL Sodium (137-145) mmol/L BUN (7-17) mg/dL Glucose (74-99) mg/dL POC Glucose (mg/dL) 129 H (70-110) mg/dL Calcium (8.4-10.2) mg/dL Ionized Calcium Elliott (4.5-5.3) mg/dL AST (14-36) U/L Alkaline Phosphatase (38-126) U/L Total Protein (6.3-8.2) g/dL Albumin (3.5-5.0) g/dL Arterial Blood Glucose 148 H 183 H (75-99) mg/dL Crossmatch 12/07/21 12/07/21 12/07/21 Range/Units 15:36 15:36 15:36 RBC 2.89 L (3.80-5.40) m/uL Hgb 8.6 L D (11.4-16.0) gm/dL Hct 27.3 L (34.0-46.0) % Plt Count 114 L D (150-450) k/uL Neutrophils # (1.3-7.7) k/uL Lymphocytes # 0.7 L (1.0-4.8) k/uL PT 12.4 H (9.0-12.0) sec INR 1.2 H (<1.2) APTT 36.3 H (22.0-30.0) sec ABG pH (7.35-7.45) ABG pCO2 (35-45) mmHg ABG pO2 (83-108) mmHg ABG HCO3 (21-25) mmol/L ABG Total CO2 (19-24) mmol/L ABG O2 Saturation (94-97) % ABG Hematocrit (34.0-46.0) % ABG Sodium (135-146) mmol/L ABG Ionized Calcium (4.5-5.3) mg/dL ABG Glucose (75-99) mg/dL ABG Lactic Acid (0.5-1.6) mmol/L Hemoglobin (11.4-16.0) gm/dL Sodium (137-145) mmol/L BUN 20 H (7-17) mg/dL Glucose 117 H (74-99) mg/dL POC Glucose (mg/dL) (70-110) mg/dL Calcium (8.4-10.2) mg/dL Ionized Calcium Elliott (4.5-5.3) mg/dL AST 48 H (14-36) U/L Alkaline Phosphatase <20 L (38-126) U/L Total Protein 3.9 L (6.3-8.2) g/dL Albumin 2.5 L (3.5-5.0) g/dL Arterial Blood Glucose (75-99) mg/dL Crossmatch 12/07/21 12/07/21 12/07/21 Range/Units 16:15 17:09 17:09 RBC 3.55 L (3.80-5.40) m/uL Hgb 11.1 L (11.4-16.0) gm/dL Hct 33.6 L (34.0-46.0) % Plt Count (150-450) k/uL Neutrophils # (1.3-7.7) k/uL Lymphocytes # 0.8 L (1.0-4.8) k/uL PT (9.0-12.0) sec INR (<1.2) APTT (22.0-30.0) sec ABG pH 7.31 L (7.35-7.45) ABG pCO2 49 H (35-45) mmHg ABG pO2 302 H (83-108) mmHg ABG HCO3 (21-25) mmol/L ABG Total CO2 26 H (19-24) mmol/L ABG O2 Saturation 99.9 H (94-97) % ABG Hematocrit 29 L (34.0-46.0) % ABG Sodium (135-146) mmol/L ABG Ionized Calcium (4.5-5.3) mg/dL ABG Glucose (75-99) mg/dL ABG Lactic Acid (0.5-1.6) mmol/L Hemoglobin 9.4 L (11.4-16.0) gm/dL Sodium (137-145) mmol/L BUN (7-17) mg/dL Glucose (74-99) mg/dL POC Glucose (mg/dL) 151 H (70-110) mg/dL Calcium (8.4-10.2) mg/dL Ionized Calcium Elliott (4.5-5.3) mg/dL AST (14-36) U/L Alkaline Phosphatase (38-126) U/L Total Protein (6.3-8.2) g/dL Albumin (3.5-5.0) g/dL Arterial Blood Glucose (75-99) mg/dL Crossmatch 12/07/21 12/07/21 12/07/21 Range/Units 18:04 19:01 19:40 RBC (3.80-5.40) m/uL Hgb (11.4-16.0) gm/dL Hct (34.0-46.0) % Plt Count (150-450) k/uL Neutrophils # (1.3-7.7) k/uL Lymphocytes # (1.0-4.8) k/uL PT (9.0-12.0) sec INR (<1.2) APTT (22.0-30.0) sec ABG pH (7.35-7.45) ABG pCO2 (35-45) mmHg ABG pO2 (83-108) mmHg ABG HCO3 (21-25) mmol/L ABG Total CO2 (19-24) mmol/L ABG O2 Saturation (94-97) % ABG Hematocrit (34.0-46.0) % ABG Sodium (135-146) mmol/L ABG Ionized Calcium (4.5-5.3) mg/dL ABG Glucose (75-99) mg/dL ABG Lactic Acid (0.5-1.6) mmol/L Hemoglobin (11.4-16.0) gm/dL Sodium (137-145) mmol/L BUN (7-17) mg/dL Glucose (74-99) mg/dL POC Glucose (mg/dL) 199 H 198 H 212 H (70-110) mg/dL Calcium (8.4-10.2) mg/dL Ionized Calcium Elliott (4.5-5.3) mg/dL AST (14-36) U/L Alkaline Phosphatase (38-126) U/L Total Protein (6.3-8.2) g/dL Albumin (3.5-5.0) g/dL Arterial Blood Glucose (75-99) mg/dL Crossmatch 12/07/21 12/07/21 12/07/21 Range/Units 19:42 20:52 20:54 RBC 3.71 L (3.80-5.40) m/uL Hgb (11.4-16.0) gm/dL Hct (34.0-46.0) % Plt Count (150-450) k/uL Neutrophils # 8.8 H (1.3-7.7) k/uL Lymphocytes # (1.0-4.8) k/uL PT (9.0-12.0) sec INR (<1.2) APTT (22.0-30.0) sec ABG pH (7.35-7.45) ABG pCO2 (35-45) mmHg ABG pO2 (83-108) mmHg ABG HCO3 (21-25) mmol/L ABG Total CO2 (19-24) mmol/L ABG O2 Saturation 97.9 H (94-97) % ABG Hematocrit 33 L (34.0-46.0) % ABG Sodium (135-146) mmol/L ABG Ionized Calcium (4.5-5.3) mg/dL ABG Glucose (75-99) mg/dL ABG Lactic Acid (0.5-1.6) mmol/L Hemoglobin 10.7 L (11.4-16.0) gm/dL Sodium (137-145) mmol/L BUN (7-17) mg/dL Glucose (74-99) mg/dL POC Glucose (mg/dL) 210 H (70-110) mg/dL Calcium (8.4-10.2) mg/dL Ionized Calcium Elliott (4.5-5.3) mg/dL AST (14-36) U/L Alkaline Phosphatase (38-126) U/L Total Protein (6.3-8.2) g/dL Albumin (3.5-5.0) g/dL Arterial Blood Glucose (75-99) mg/dL Crossmatch 12/07/21 12/07/21 12/08/21 Range/Units 21:52 23:01 00:28 RBC (3.80-5.40) m/uL Hgb (11.4-16.0) gm/dL Hct (34.0-46.0) % Plt Count (150-450) k/uL Neutrophils # (1.3-7.7) k/uL Lymphocytes # (1.0-4.8) k/uL PT (9.0-12.0) sec INR (<1.2) APTT (22.0-30.0) sec ABG pH (7.35-7.45) ABG pCO2 (35-45) mmHg ABG pO2 (83-108) mmHg ABG HCO3 (21-25) mmol/L ABG Total CO2 (19-24) mmol/L ABG O2 Saturation (94-97) % ABG Hematocrit (34.0-46.0) % ABG Sodium (135-146) mmol/L ABG Ionized Calcium (4.5-5.3) mg/dL ABG Glucose (75-99) mg/dL ABG Lactic Acid (0.5-1.6) mmol/L Hemoglobin (11.4-16.0) gm/dL Sodium (137-145) mmol/L BUN (7-17) mg/dL Glucose (74-99) mg/dL POC Glucose (mg/dL) 199 H 156 H 155 H (70-110) mg/dL Calcium (8.4-10.2) mg/dL Ionized Calcium Elliott (4.5-5.3) mg/dL AST (14-36) U/L Alkaline Phosphatase (38-126) U/L Total Protein (6.3-8.2) g/dL Albumin (3.5-5.0) g/dL Arterial Blood Glucose (75-99) mg/dL Crossmatch 12/08/21 12/08/21 12/08/21 Range/Units 01:50 02:47 03:57 RBC 3.14 L (3.80-5.40) m/uL Hgb 9.8 L D (11.4-16.0) gm/dL Hct 29.6 L (34.0-46.0) % Plt Count (150-450) k/uL Neutrophils # (1.3-7.7) k/uL Lymphocytes # 0.5 L (1.0-4.8) k/uL PT (9.0-12.0) sec INR (<1.2) APTT (22.0-30.0) sec ABG pH (7.35-7.45) ABG pCO2 (35-45) mmHg ABG pO2 (83-108) mmHg ABG HCO3 (21-25) mmol/L ABG Total CO2 (19-24) mmol/L ABG O2 Saturation (94-97) % ABG Hematocrit (34.0-46.0) % ABG Sodium (135-146) mmol/L ABG Ionized Calcium (4.5-5.3) mg/dL ABG Glucose (75-99) mg/dL ABG Lactic Acid (0.5-1.6) mmol/L Hemoglobin (11.4-16.0) gm/dL Sodium (137-145) mmol/L BUN (7-17) mg/dL Glucose (74-99) mg/dL POC Glucose (mg/dL) 117 H 115 H (70-110) mg/dL Calcium (8.4-10.2) mg/dL Ionized Calcium Elliott (4.5-5.3) mg/dL AST (14-36) U/L Alkaline Phosphatase (38-126) U/L Total Protein (6.3-8.2) g/dL Albumin (3.5-5.0) g/dL Arterial Blood Glucose (75-99) mg/dL Crossmatch 12/08/21 12/08/21 12/08/21 Range/Units 03:57 05:31 06:43 RBC (3.80-5.40) m/uL Hgb (11.4-16.0) gm/dL Hct (34.0-46.0) % Plt Count (150-450) k/uL Neutrophils # (1.3-7.7) k/uL Lymphocytes # (1.0-4.8) k/uL PT (9.0-12.0) sec INR (<1.2) APTT (22.0-30.0) sec ABG pH (7.35-7.45) ABG pCO2 (35-45) mmHg ABG pO2 (83-108) mmHg ABG HCO3 (21-25) mmol/L ABG Total CO2 (19-24) mmol/L ABG O2 Saturation (94-97) % ABG Hematocrit (34.0-46.0) % ABG Sodium (135-146) mmol/L ABG Ionized Calcium (4.5-5.3) mg/dL ABG Glucose (75-99) mg/dL ABG Lactic Acid (0.5-1.6) mmol/L Hemoglobin (11.4-16.0) gm/dL Sodium 135 L (137-145) mmol/L BUN (7-17) mg/dL Glucose 101 H (74-99) mg/dL POC Glucose (mg/dL) 138 H 173 H (70-110) mg/dL Calcium 7.6 L (8.4-10.2) mg/dL Ionized Calcium Elliott 4.3 L (4.5-5.3) mg/dL AST 59 H (14-36) U/L Alkaline Phosphatase 23 L (38-126) U/L Total Protein 5.1 L (6.3-8.2) g/dL Albumin (3.5-5.0) g/dL Arterial Blood Glucose (75-99) mg/dL Crossmatch 12/08/21 12/08/21 12/08/21 Range/Units 08:15 10:38 12:10 RBC (3.80-5.40) m/uL Hgb (11.4-16.0) gm/dL Hct (34.0-46.0) % Plt Count (150-450) k/uL Neutrophils # (1.3-7.7) k/uL Lymphocytes # (1.0-4.8) k/uL PT (9.0-12.0) sec INR (<1.2) APTT (22.0-30.0) sec ABG pH (7.35-7.45) ABG pCO2 (35-45) mmHg ABG pO2 (83-108) mmHg ABG HCO3 (21-25) mmol/L ABG Total CO2 (19-24) mmol/L ABG O2 Saturation (94-97) % ABG Hematocrit (34.0-46.0) % ABG Sodium (135-146) mmol/L ABG Ionized Calcium (4.5-5.3) mg/dL ABG Glucose (75-99) mg/dL ABG Lactic Acid (0.5-1.6) mmol/L Hemoglobin (11.4-16.0) gm/dL Sodium (137-145) mmol/L BUN (7-17) mg/dL Glucose (74-99) mg/dL POC Glucose (mg/dL) 130 H 67 L 138 H (70-110) mg/dL Calcium (8.4-10.2) mg/dL Ionized Calcium Elliott (4.5-5.3) mg/dL AST (14-36) U/L Alkaline Phosphatase (38-126) U/L Total Protein (6.3-8.2) g/dL Albumin (3.5-5.0) g/dL Arterial Blood Glucose (75-99) mg/dL Crossmatch Assessment and Plan Assessment: Triple 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 Several consultants on the case including cardiology and pulmonary as well as surgery primary team. Labs and medication were reviewed.. Continue same treatment. Continue with symptomatic treatment. Resume home medication. Monitor lytes and vitals. DVT and GI prophylaxis. Further recommendations as per clinical course of the patient DVT prophylaxis: Subcutaneous Lovenox GI Prophylaxis: Ppi Thank you for consulting us
[2021-12-08] MEDS: PANTOPRAZOLE 40 MG TABLET PO SCH (21:07)
[2021-12-08] MEDS: SENNOSIDES-DOCUSATE SODIUM 1 EACH TAB PO SCH (21:07)
[2021-12-08 21:18] LABS: Glucose,Whole Blood 93 mg/dL (70-110)
[2021-12-08] MEDS: INSULIN ASPART (NovoLOG) 100 UNIT/ML VIAL SQ SCH (21:22)
[2021-12-09 04:31] LABS: Basophils % (A) 0 %; Eosinophils # (A) 0.1 k/uL (0-0.7); Eosinophils % (A) 2 %; HCT 25.5 % (34.0-46.0); Lymphocytes # (A) 0.7 k/uL (1.0-4.8); Lymphocytes % (A) 15 %; MCV 93.8 fL (80.0-100.0); Mean Platelet Volume 8.3; Monocytes # (A) 0.3 k/uL (0-1.0); Monocytes % (A) 5 %; Neutrophils # (A) 3.6 k/uL (1.3-7.7); Neutrophils % (A) 77 %; Platelet Count 105 k/uL (150-450); RBC 2.71 m/uL (3.80-5.40); RDW 13.1 % (11.5-15.5); WBC 4.7 k/uL (3.8-10.6)
[2021-12-09 04:43] LABS: HGB 8.1 gm/dL (11.4-16.0)
[2021-12-09 04:46] LABS: Ionized Calcium 4.2 mg/dL (4.5-5.3)
[2021-12-09 04:48] LABS: ALT 21 U/L (4-34); AST 47 U/L (14-36); African American GFR (CKD) >90 (>60 ml/min/1.73 sqM); Albumin 3.2 g/dL (3.5-5.0); Alkaline Phosphatase 27 U/L (38-126); Anion Gap 8 mmol/L; Blood Urea Nitrogen 14 mg/dL (7-17); Calcium 7.2 mg/dL (8.4-10.2); Carbon Dioxide 21 mmol/L (22-30); Chloride 100 mmol/L (98-107); Glucose 111 mg/dL (74-99); Magnesium 2.2 mg/dL (1.6-2.3); Non-African American GFR(CKD) 81 (>60 ml/min/1.73 sqM); Potassium 3.8 mmol/L (3.5-5.1); Sodium 129 mmol/L (137-145); Total Bilirubin 0.6 mg/dL (0.2-1.3); Total Protein 4.9 g/dL (6.3-8.2)
[2021-12-09] MEDS: KETOROLAC 15 MG/ML 1 ML VIAL IVP SCH ×3 (05:49→18:52)
[2021-12-09] MEDS: hydrALAZINE HCL 20 MG/ML 1 ML VIAL IVP PRN ×2 (05:50→17:31)
[2021-12-09] MEDS: CLEVIDIPINE BUTYRATE 25 MG in EMPTY BAG 1 BAG IV SCH (06:21)
--- NOTE | 2021-12-09 07:12 | XR ---
EXAMINATION TYPE: XR chest 1V portable DATE OF EXAM: 12/09/2021 5:55 AM COMPARISON: Chest radiographs from there are 12/19/2021 TECHNIQUE: XR chest 1V portable Frontal view of the chest. CLINICAL INDICATION:Female, 80 years old with history of Post Operative Cardiac Surgery; FINDINGS: Lungs/Pleura: Persistent left pleural effusion with associated atelectasis. Is no evidence of pleural effusion, focal consolidation, or pneumothorax. Pulmonary vascularity: Unremarkable. Heart/mediastinum: Cardiomediastinal silhouette is unremarkable. Left atrial appendage occlusion barrera ce is present. Musculoskeletal: No acute osseous pathology. Midline sternotomy wires are noted. Other findings: None Lines/Tubes: Endotracheal tube with distal tip xx cm above the rafa Nasogastric tube with its distal tip and side-port projecting under the diaphragm. There is a [place] catheter with tip projecting over the spine. Drainage tubes with tips projecting over the mediastinum. IMPRESSION: Stable exam with left pleural effusion and postsurgical changes.
[2021-12-09 07:14] LABS: Glucose,Whole Blood 109 mg/dL (70-110)
[2021-12-09] MEDS ORDERED: CALCIUM GLUCONATE IN NACL 1 GM in SALINE 1 100ML.BAG IVPB ONE (07:30)
--- NOTE | 2021-12-09 07:45 | P.PN ---
Subjective Progress Note Date: 12/09/21 Principal diagnosis: Triple-vessel diffuse calcific coronary artery disease, preserved systolic function. Previous medical history of hypertension, hyperlipidemia, esophageal stricture with serial dilatation, previous tobacco dependence, peripheral arterial disease POD #2 quadruple coronary artery bypass grafting using the left internal mammary artery to the left anterior descending artery, reverse saphenous vein graft from the aorta to the first obtuse marginal artery, reverse saphenous vein graft from the previous vein graft and an anastomosis to the diagonal artery, reverse saphenous vein graft from the aorta to the posterior descending artery, exclusion of the left atrial appendage using a 35 mm AtriClip, endoscopic harvesting of the left greater saphenous vein, intraoperative graft flow measurements using the Kl[employer]instim system, intraoperative transesophageal echo cardiogram and epi-aortic scanning Postoperative acute blood loss anemia, expected given hemodilution and cardiopulmonary bypass pump The patient was seen and examined this morning sitting up in a recliner in the intensive care unit in no acute distress. Remains in sinus rhythm, hemodynamically stable, currently on IV Primacor and insulin. She had been weaned off Primacor yesterday, however her cardiac output and index dropped so Primacor was reinitiated. Blood pressure has been labile, hypertensive at times requiring Cleviprex. Patient does complain of post surgical pain which is somewhat controlled with current medication regimen, denies shortness of breath. She did have nausea with narcotic administration, narcotics discontinued. Remains on 3 L nasal cannula, poor effort to get incentive spirometer. Patient very weak and not able to ambulate yesterday with staff. Right internal jugular [place]/Cordis, right radial arterial line, mediastinal/left/right pleural chest tubes all remain. No other new concerns. Objective - Vital Signs Vital signs: Vital Signs Temp 98.6 F 12/08/21 16:00 Pulse 86 12/09/21 07:00 Resp 20 12/09/21 07:00 BP 102/54 12/09/21 07:00 Pulse Ox 94 L 12/09/21 07:00 FiO2 50 12/07/21 23:00 Intake & Output 12/08/21 12/09/21 12/09/21 18:59 06:59 18:59 Intake Total 0381.917 2146 79 Output Total 440 905 45 Balance 1334.916 393 34 Weight 71 kg 68.2 kg Intake: IV 1229 998 79 Albumin Human 5% 250 ml 500 In Empty Bag 1 bag @ 250 mls/hr IVPB Q1HR PRN Rx#: [id number] Sodium Chloride 0.9% 1, 400 600 50 000 ml @ 20 mls/hr IV . Q24H DEBORAH Rx#:[id number] cardiac output 180 290 20 ceFAZolin 2 gm In Sodium 50 Chloride 0.9% 50 ml @ 100 mls/hr IVPB Q8HR DEBORAH Rx# :[id number] pressure bags 99 108 9 Intake, IV Titration 335.916 Amount Amiodarone 450 mg In 219.449 Dextrose 5% in Water 250 ml @ 0.5 MG/MIN 16.667 mls/hr IV .Q15H DEBORAH Rx#: [id number] Clevidipine Butyrate 25 63.867 mg In Empty Bag 1 bag @ 1 MG/HR 2 mls/hr IV .Q24H DEBORAH Rx#:[id number] Insulin Regular 100 unit 22.313 In Sodium Chloride 0.9% 100 ml @ Per Protocol IV .Q0M DEBORAH Rx#:[id number] Milrinone-D5w Pmx 20 mg 6.412 In Dextrose/Water 1 100ml .bag @ 0.1 MCG/KG/MIN 2. 025 mls/hr IV .Q24H DEBORAH Rx#:[id number] Nitroglycerin-D5w Pmx 50 23.875 mg In Dextrose/Water 1 250ml.bag @ 5 MCG/MIN 1.5 mls/hr IV .Q24H DEBORAH Rx#: [id number] Oral 210 300 Output: Chest Tube Drainage 90 530 20 left pleural 30 210 10 mediastinal x2 50 70 0 right pleural 10 250 10 Urine 350 375 25 Other: Voiding Method Indwelling Catheter Indwelling Catheter ABP, PAP, CO, CI - Last Documented Arterial Blood Pressure 138/56 Pulmonary Artery Pressure 27/8 Cardiac Output 5.6 Cardiac Index 3.3 - Exam CONSTITUTIONAL: Appears somewhat comfortable, cooperative, no acute distress RESPIRATORY: Lungs sounds diminished bilaterally. Respirations even, nonlabored. Currently on 3 L nasal cannula with oxygen saturation 93%. Barely able to achieve 500 mL on incentive spirometry with effort. Strong cough with much prompting. CARDIOVASCULAR: S1, S2 present. Regular rate and rhythm, sinus rhythm on telemetry. Sternum stable. Palpable peripheral pulses bilaterally. No edema present. No calf pain or tenderness noted. Heart hugger in place with patient demonstrating appropriate use. Antiembolism stockings, SCDs present. GASTROINTESTINAL: Abdomen soft, nontender, nondistended, obese. Active bowel sounds present 4 quadrants. Tolerating clear liquids. Denies flatus, endorses belching GENITOURINARY: Savage present draining clear, yellow urine. Output overnight 15-40 mL per hour, 680 mL in the last 24 hours INTEGUMENTARY: Skin is warm and dry with evidence of good perfusion. Anterior chest incision well approximated and covered with dry intact dressing. Left lower extremity EVH site well approximated without redness, JOSIE drain present with minimal drainage NEUROLOGIC: Cranial nerves II through XII intact MUSKULOSKELETAL: Able to move all extremities, strength equal bilaterally PSYCHIATRIC: Alert and oriented to person place and time, appropriate affect, intact judgment and insight INVASIVE LINES AND TUBES: Mediastinal/left/right pleural chest tubes present and connected to wall suction, no air leaks present. Mediastinal tube with 20 mL serosanguineous drainage overnight, 150 mL in the last 24 hours. Left pleural chest tube with 120 mL serosanguineous drainage overnight, 350 mL in the last 24 hours. Right pleural chest tube with 180 mL serosanguineous drainage overnight, 280 mL in the last 24 hours. A/V epicardial pacemaker wires present, grounded. Right internal jugular [place]/Cordis, right radial arterial line present. Last CO/CI 5.6/3.3, PA 26/9, CVP 5. - Allied health notes Allied health notes reviewed: nursing - Labs CBC & Chem 7: 12/09/21 04:05 12/09/21 04:05 Labs: Abnormal Lab Results - Last 24 Hours (Table) 11/28/21 12/08/21 12/08/21 Range/Units 15:30 08:15 10:38 RBC (3.80-5.40) m/uL Hgb (11.4-16.0) gm/dL Hct (34.0-46.0) % Plt Count (150-450) k/uL Lymphocytes # (1.0-4.8) k/uL Sodium (137-145) mmol/L Carbon Dioxide (22-30) mmol/L Glucose (74-99) mg/dL POC Glucose (mg/dL) 130 H 67 L (70-110) mg/dL Calcium (8.4-10.2) mg/dL Ionized Calcium Elliott (4.5-5.3) mg/dL AST (14-36) U/L Alkaline Phosphatase (38-126) U/L Total Protein (6.3-8.2) g/dL Albumin (3.5-5.0) g/dL Crossmatch See Detail 12/08/21 12/08/21 12/08/21 Range/Units 12:10 13:08 15:07 RBC (3.80-5.40) m/uL Hgb (11.4-16.0) gm/dL Hct (34.0-46.0) % Plt Count (150-450) k/uL Lymphocytes # (1.0-4.8) k/uL Sodium (137-145) mmol/L Carbon Dioxide (22-30) mmol/L Glucose (74-99) mg/dL POC Glucose (mg/dL) 138 H 146 H 130 H (70-110) mg/dL Calcium (8.4-10.2) mg/dL Ionized Calcium Elliott (4.5-5.3) mg/dL AST (14-36) U/L Alkaline Phosphatase (38-126) U/L Total Protein (6.3-8.2) g/dL Albumin (3.5-5.0) g/dL Crossmatch 12/08/21 12/09/21 12/09/21 Range/Units 17:32 04:05 04:05 RBC 2.71 L (3.80-5.40) m/uL Hgb 8.1 L D (11.4-16.0) gm/dL Hct 25.5 L (34.0-46.0) % Plt Count 105 L (150-450) k/uL Lymphocytes # 0.7 L (1.0-4.8) k/uL Sodium 129 L (137-145) mmol/L Carbon Dioxide 21 L (22-30) mmol/L Glucose 111 H (74-99) mg/dL POC Glucose (mg/dL) 123 H (70-110) mg/dL Calcium 7.2 L (8.4-10.2) mg/dL Ionized Calcium Elliott 4.2 L (4.5-5.3) mg/dL AST 47 H (14-36) U/L Alkaline Phosphatase 27 L (38-126) U/L Total Protein 4.9 L (6.3-8.2) g/dL Albumin 3.2 L (3.5-5.0) g/dL Crossmatch - Imaging and Cardiology Chest x-ray: report reviewed, image reviewed Assessment and Plan Assessment: 1. Triple-vessel diffuse calcific coronary artery disease, status post four- vessel CABG 2. Preserved systolic function 3. Hypertension 4. Hyperlipidemia, cholesterol 269, LDL 171, triglycerides 245 5. Esophageal stricture with serial dilatation 6. Previous tobacco dependence, preoperative FEV1 77% of predicted 7. Peripheral arterial disease, right lower extremity TORITO 0.83 8. Postoperative acute blood loss anemia, expected Plan: 1. Continue to maximize medical therapy with aspirin, statin, Plavix, beta rani therapy. Will increase beta rani therapy as tolerated. Wean Primacor, Cleviprex. Will add Cozaar for afterload reduction 2. Continue amiodarone for A. fib prophylaxis 3. Wean O2 as tolerated. Encourage incentive spirometry was 10 times every hour while awake. Bronchodilators per pulmonology 4. Increase activity as tolerated. PT/OT/cardiac rehab consulted. Patient needs much encouragement 5. Will monitor daily labs and x-rays. Electrolyte replacement per protocol 6. GI/DVT prophylaxis 7. Pain control per medication regimen. Avoid narcotics 8. Insulin management per primary care service. Patient is not diabetic, preoperative hemoglobin A1c 5.8% 9. Will discontinue mediastinal chest tube. Continue pleural chest tubes for another 24 hours 10. Continue Savage catheter for another 24 hours for strict accurate intake and output. Daily weights 11. More recommendations to follow
[2021-12-09] MEDS: INSULIN ASPART (NovoLOG) 100 UNIT/ML VIAL SQ SCH ×4 (07:48→21:02)
[2021-12-09] MEDS: LEVOTHYROXINE 25 MCG TAB PO SCH (08:23)
[2021-12-09] MEDS: METOPROLOL TARTRATE 25 MG TAB PO SCH ×2 (08:26→21:08)
[2021-12-09] MEDS: AMIODARONE 200 MG TAB PO SCH ×2 (08:26→21:08)
[2021-12-09] MEDS: CHOLECALCIFEROL 25 MCG (1000 IU) TABLET PO SCH (08:27)
[2021-12-09] MEDS: ATORVASTATIN 40 MG TAB PO SCH (08:27)
[2021-12-09] MEDS: ASPIRIN 325 MG TAB PO SCH (08:27)
[2021-12-09] MEDS: CLOPIDOGREL 75 MG TAB PO SCH (08:27)
[2021-12-09] MEDS: MUPIROCIN 2% OINT 22 GM TUBE NASAL SCH ×2 (08:28→21:08)
[2021-12-09] MEDS: ASCORBIC ACID 500 MG TAB PO SCH ×2 (08:28→17:31)
[2021-12-09] MEDS: FERROUS SULFATE 325 MG TAB PO SCH ×2 (08:28→17:31)
[2021-12-09] MEDS: MULTIVITAMINS, THERA 1 EACH TAB PO SCH (08:28)
[2021-12-09] MEDS: ENOXAPARIN 40 MG/0.4 ML SYRINGE SQ SCH (08:29)
[2021-12-09] MEDS: POTASSIUM CHLORIDE 10 MEQ in WATER FOR INJECTION 1 100ML.BAG IVPB SCH ×4 (08:30→21:09)
[2021-12-09] MEDS: PANTOPRAZOLE 40 MG TABLET PO SCH ×2 (08:33→17:31)
[2021-12-09] MEDS: IPRATROPIUM-ALBUTEROL 3 ML NEB INHALATION SCH ×4 (08:57→19:39)
[2021-12-09] MEDS ORDERED: LOSARTAN 25 MG TAB PO SCH (09:00)
[2021-12-09] MEDS ORDERED: FUROSEMIDE 10 MG/ML 2 ML VIAL IV ONE (10:15)
[2021-12-09] MEDS: MILRINONE-D5W PMX 20 MG in DEXTROSE/WATER 1 100ML.BAG IV SCH ×2 (10:59→14:50)
[2021-12-09 11:25] LABS: Glucose,Whole Blood 111 mg/dL (70-110)
--- NOTE | 2021-12-09 12:02 | P.PN ---
Subjective Progress Note Date: 12/09/21 Principal diagnosis: Status post quadruple CABG postoperative day #2 This is an 80-year-old female with known history of hypertension and dyslipidemia patient has been developing dyspnea on exertion and chest discomfort. On 11/28, patient underwent cardiac catheterization, and she was found to have severe triple-vessel coronary artery disease, a right dominance, elevated left ventricular end-diastolic pressure. Patient was referred to surgery. Patient was seen by Samra, today the patient underwent myocardial revascularization. Postoperatively patient was kept on mechanical ventilation, and I was asked to see her on consultation. Presently the patient is in the ICU , she is on assist control rate of 16 volume 350 FiO2 50% and PEEP of 5 patient is on multiple drips including amiodarone 1 mg/m, nitroglycerin, propofol 50 mcg/m, milrinone, 0.2 mcg/kg/m, Cleviprex at 4 mg/h insulin at 2 units per hour. Patient has a cardiac output of 4.9 and cardiac index of 2.9. Chest x-ray showed small left pleural effusion with expected postoperative changes secondary to CABG. Reevaluated today on 12/08/21, patient remains in the ICU, she was extubated yesterday uneventfully. He is on 3 L nasal cannula. Remains on multiple drips including amiodarone at 0.5 mg/m, Cleviprex at 4 mg/h insulin at 5.5 units per hour patient is relatively asymptomatic, doing well, generally weak, able to achieve almost thousand cc with incentive spirometry. Chest x-ray showed chronic left lower lobe atelectasis and pleural effusion, small. No new process is noted. WBC scan 6.7 hemoglobin is 9.8. Basic metabolic profile is normal, renal profile is normal Reevaluated today on 12/09/21, patient remains in the ICU, sitting in her recliner, she is on 3 L nasal cannula, she is on Primacor at 0.1 mcg/kg/m, otherwise the patient is doing great. Patient is in sinus rhythm, hemodynami nehal stable, she is being weaned off Primacor. Her cardiac output and cardiac index was noted to be on the low side. Hence Primacor was restarted yesterday after stopping it. At times the patient is requiring clevidipine. Her postsurgical pain is controlled. She denies any shortness of breath. Achieving about 1000 mL with incentive spirometry. Continues to have mediastinal left and the right pleural chest tubes and she continues to have this Cordis and [place]- King catheter. WBC count is 4.7 hemoglobin is 8.1 electrolytes are normal except for slightly low sodium of 129. Blood sugar is 111. Objective - Vital Signs Vital signs: Vital Signs Temp 99 F 12/09/21 08:00 Pulse 81 12/09/21 10:30 Resp 22 12/09/21 10:30 BP 123/68 12/09/21 11:00 Pulse Ox 97 12/09/21 11:00 FiO2 50 12/07/21 23:00 Intake & Output 12/08/21 12/09/21 12/09/21 18:59 06:59 18:59 Intake Total 6462.965 2406 556.106 Output Total 440 905 555 Balance 1334.916 393 1.106 Weight 71 kg 68.2 kg Intake: IV 1229 998 279 Albumin Human 5% 250 ml 500 In Empty Bag 1 bag @ 250 mls/hr IVPB Q1HR PRN Rx#: [id number] Sodium Chloride 0.9% 1, 400 600 250 000 ml @ 20 mls/hr IV . Q24H [facility]BORAH Rx#:[id number] cardiac output 180 290 20 ceFAZolin 2 gm In Sodium 50 Chloride 0.9% 50 ml @ 100 mls/hr IVPB Q8HR [facility] Rx# :[id number] pressure bags 99 108 9 Intake, IV Titration 335.916 277.106 Amount Amiodarone 450 mg In 219.449 Dextrose 5% in Water 250 ml @ 0.5 MG/MIN 16.667 mls/hr IV .Q15H DEBORAH Rx#: [id number] Calcium Gluconate in NaCl 100 1 gm In Saline 1 100ml. bag @ 100 mls/hr IVPB ONCE ONE Rx#:[id number] Clevidipine Butyrate 25 63.867 mg In Empty Bag 1 bag @ 1 MG/HR 2 mls/hr IV .Q24H [facility]BORAH Rx#:[id number] Insulin Regular 100 unit 22.313 In Sodium Chloride 0.9% 100 ml @ Per Protocol IV .Q0M [facility]BORAH Rx#:[id number] Milrinone-D5w Pmx 20 mg 6.412 In Dextrose/Water 1 100ml .bag @ 0.1 MCG/KG/MIN 2. 025 mls/hr IV .Q24H DEBORAH Rx#:[id number] Milrinone-D5w Pmx 20 mg 77.106 In Dextrose/Water 1 100ml .bag @ 0.1 MCG/KG/MIN 2. 13 mls/hr IV .Q24H [facility]BORAH Rx #:[id number] Nitroglycerin-D5w Pmx 50 23.875 mg In Dextrose/Water 1 250ml.bag @ 5 MCG/MIN 1.5 mls/hr IV .Q24H DEBORAH Rx#: [id number] Potassium Chloride 10 meq 100 In Water For Injection 1 100ml.bag @ 100 mls/hr IVPB Q1H [facility]BORAH Rx#: [id number] Oral 210 300 Output: Chest Tube Drainage 90 530 90 left pleural 30 210 40 mediastinal x2 50 70 0 right pleural 10 250 50 Urine 350 375 465 Other: Voiding Method Indwelling Catheter Indwelling Catheter Indwelling Catheter ABP, PAP, CO, CI - Last Documented Arterial Blood Pressure 139/57 Pulmonary Artery Pressure 26/11 Cardiac Output 4.0 Cardiac Index 2.4 - Exam Physical Exam: Revealed 80-year-old female in no distress , on 3 L nasal cannu la. Sitting in the recliner. Head: Atraumatic, normocephalic. HEENT:[Neck is supple.] [No neck masses.] [No thyromegaly.] [No JVD.] Chest: Symmetrical chest expansion, diminished breath sounds at the bases no rhonchi no wheezes, mediastinal and pleural tubes are noted Cardiac Exam: Distant S1 and S2, no S3 gallop, positive pericardial rub. Abdomen: [Soft, nontender, no megaly, no rebound, no guarding, normal bowel sounds.] Extremities: [No clubbing, no edema, no cyanosis.] Neurological Exam: Alert and oriented 3 focal neurologic deficit psychiatric: Normal mood, affect and normal mental status examination. Skin: No rashes. - Labs CBC & Chem 7: 12/09/21 04:05 12/09/21 04:05 Labs: Abnormal Lab Results - Last 24 Hours (Table) 11/28/21 12/08/21 12/08/21 Range/Units 15:30 12:10 13:08 RBC (3.80-5.40) m/uL Hgb (11.4-16.0) gm/dL Hct (34.0-46.0) % Plt Count (150-450) k/uL Lymphocytes # (1.0-4.8) k/uL Sodium (137-145) mmol/L Carbon Dioxide (22-30) mmol/L Glucose (74-99) mg/dL POC Glucose (mg/dL) 138 H 146 H (70-110) mg/dL Calcium (8.4-10.2) mg/dL Ionized Calcium Elliott (4.5-5.3) mg/dL AST (14-36) U/L Alkaline Phosphatase (38-126) U/L Total Protein (6.3-8.2) g/dL Albumin (3.5-5.0) g/dL Crossmatch See Detail 12/08/21 12/08/21 12/09/21 Range/Units 15:07 17:32 04:05 RBC (3.80-5.40) m/uL Hgb (11.4-16.0) gm/dL Hct (34.0-46.0) % Plt Count (150-450) k/uL Lymphocytes # (1.0-4.8) k/uL Sodium 129 L (137-145) mmol/L Carbon Dioxide 21 L (22-30) mmol/L Glucose 111 H (74-99) mg/dL POC Glucose (mg/dL) 130 H 123 H (70-110) mg/dL Calcium 7.2 L (8.4-10.2) mg/dL Ionized Calcium Elliott 4.2 L (4.5-5.3) mg/dL AST 47 H (14-36) U/L Alkaline Phosphatase 27 L (38-126) U/L Total Protein 4.9 L (6.3-8.2) g/dL Albumin 3.2 L (3.5-5.0) g/dL Crossmatch 12/09/21 12/09/21 Range/Units 04:05 11:24 RBC 2.71 L (3.80-5.40) m/uL Hgb 8.1 L D (11.4-16.0) gm/dL Hct 25.5 L (34.0-46.0) % Plt Count 105 L (150-450) k/uL Lymphocytes # 0.7 L (1.0-4.8) k/uL Sodium (137-145) mmol/L Carbon Dioxide (22-30) mmol/L Glucose (74-99) mg/dL POC Glucose (mg/dL) 111 H (70-110) mg/dL Calcium (8.4-10.2) mg/dL Ionized Calcium Elliott (4.5-5.3) mg/dL AST (14-36) U/L Alkaline Phosphatase (38-126) U/L Total Protein (6.3-8.2) g/dL Albumin (3.5-5.0) g/dL Crossmatch Assessment and Plan Assessment: Impression: Status post CABG for triple vessel coronary artery disease, postoperative day #2 Benign essential hypertension Degenerative joint disease History of GI bleeding History of GERD History of hypothyroidism History of overactive bladder Chronic low back pain Remote smoking history quit smoking in 2005 Recommendation: Continue beta blockers and statins and aspirin and Plavix, patient is still requiring Primacor for low cardiac output and low cardiac index Continue amiodarone for atrial fibrillation prophylaxis and transition to oral. Incentive spirometry Titrate FiO2 and maintaining O2 saturation above 91% Ambulate when possible Continue GI and DVT prophylaxis Continue insulin Continue updrafts Continue pain control management. We'll continue to follow. Time with Patient: Less than 30
--- NOTE | 2021-12-09 13:14 | P.PN ---
Subjective HISTORY OF PRESENTING ILLNESS Patient has a known history of Triple-vessel coronary artery disease, preserved systolic function. Previous medical history of hypertension, hyperlipidemia, esophageal stricture with serial dilatation, previous tobacco dependence, peripheral arterial disease and follows with Dr. Velez in the office She is postop day 1 after a quadruple coronary artery bypass grafting using the left internal mammary artery to the left anterior descending artery, reverse saphenous vein graft from the aorta to the first obtuse marginal artery, reverse saphenous vein graft from the previous vein graft and an anastomosis to the d iagonal artery, reverse saphenous vein graft from the aorta to the posterior descending artery, exclusion of the left atrial appendage using a 35 mm AtriClip, endoscopic harvesting of the left greater saphenous vein, intraoperative graft flow measurements using the [employer] system, intraoperative transesophageal echocardiogram and epi-aortic scanning Patient is examined today resting comfortably in chair with no signs of acute distress. She denies increased shortness of breath or chest pain. She does report surgical pain. She has remained in sinus rhythm. She is on amiodarone and nitro drip prophylactically Patient had a carotid ultrasound which was negative for stenosis, her echocardiogram shows a mildly decreased LV function with an ejection fraction of 45-50%, moderate left ventricular hypertrophy, mild mitral regurgitation, and mild aortic stenosis. She will continue on aspirin Lipitor Plavix and Lopressor. 12/09 Patient seen and examined. Patient states she is feeling "okay". Still remains on low dose milrinone 0.1. [place]-King catheter in with PA pressure 41/22. Denie s any chest pain or pressure. No shortness breath. PHYSICAL EXAMINATION Vital signs reviewed. CONSTITUTIONAL: No apparent distress. HEENT: Head is normocephalic. Pupils are equal, round. Sclerae anicteric. Mucous membranes of the mouth are moist. No JVD. No carotid bruit. CHEST EXAMINATION: Lungs are clear to auscultation. No chest wall tenderness is noted on palpation or with deep breathing. HEART EXAMINATION: Regular rate and rhythm. S1, S2 heard. No murmurs, gallops or rub. ABDOMEN: Soft, nontender. Positive bowel sounds. EXTREMITIES: 2+ peripheral pulses, no lower extremity edema and no calf tenderness. NEUROLOGIC EXAMINATION: Patient is awake, alert and oriented x3. ASSESSMENT Triple-vessel coronary artery disease, status post four-vessel CABG Hypertension Hyperlipidemia Mild decreased EF 45-50% PLAN: Wean milrinone as able. Continue with current supportive care. Monitor hemoglobin and urine output closely. Wean drips and lines as able. Objective - Vital Signs Vital signs: Vital Signs Temp 99 F 12/09/21 08:00 Pulse 84 12/09/21 12:05 Resp 22 12/09/21 10:30 BP 123/68 12/09/21 11:00 Pulse Ox 97 12/09/21 11:00 FiO2 50 12/07/21 23:00 Intake & Output 12/08/21 12/09/21 12/09/21 18:59 06:59 18:59 Intake Total 3237.375 5899 556.106 Output Total 440 905 555 Balance 1334.916 393 1.106 Weight 71 kg 68.2 kg Intake: IV 1229 998 279 Albumin Human 5% 250 ml 500 In Empty Bag 1 bag @ 250 mls/hr IVPB Q1HR PRN Rx#: [id number] Sodium Chloride 0.9% 1, 400 600 250 000 ml @ 20 mls/hr IV . Q24H DEBORAH Rx#:[id number] cardiac output 180 290 20 ceFAZolin 2 gm In Sodium 50 Chloride 0.9% 50 ml @ 100 mls/hr IVPB Q8HR [facility]BOR[facility] Rx# :[id number] pressure bags 99 108 9 Intake, IV Titration 335.916 277.106 Amount Amiodarone 450 mg In 219.449 Dextrose 5% in Water 250 ml @ 0.5 MG/MIN 16.667 mls/hr IV .Q15H DEBORAH Rx#: [id number] Calcium Gluconate in NaCl 100 1 gm In Saline 1 100ml. bag @ 100 mls/hr IVPB ONCE ONE Rx#:[id number] Clevidipine Butyrate 25 63.867 mg In Empty Bag 1 bag @ 1 MG/HR 2 mls/hr IV .Q24H DEBORAH Rx#:[id number] Insulin Regular 100 unit 22.313 In Sodium Chloride 0.9% 100 ml @ Per Protocol IV .Q0M DEBORAH Rx#:[id number] Milrinone-D5w Pmx 20 mg 6.412 In Dextrose/Water 1 100ml .bag @ 0.1 MCG/KG/MIN 2. 025 mls/hr IV .Q24H DEBORAH Rx#:[id number] Milrinone-D5w Pmx 20 mg 77.106 In Dextrose/Water 1 100ml .bag @ 0.1 MCG/KG/MIN 2. 13 mls/hr IV .Q24H DEBORAH Rx #:[id number] Nitroglycerin-D5w Pmx 50 23.875 mg In Dextrose/Water 1 250ml.bag @ 5 MCG/MIN 1.5 mls/hr IV .Q24H DEBORAH Rx#: [id number] Potassium Chloride 10 meq 100 In Water For Injection 1 100ml.bag @ 100 mls/hr IVPB Q1H DEBORAH Rx#: [id number] Oral 210 300 Output: Chest Tube Drainage 90 530 90 left pleural 30 210 40 mediastinal x2 50 70 0 right pleural 10 250 50 Urine 350 375 465 Other: Voiding Method Indwelling Catheter Indwelling Catheter Indwelling Catheter ABP, PAP, CO, CI - Last Documented Arterial Blood Pressure 139/57 Pulmonary Artery Pressure 26/11 Cardiac Output 4.0 Cardiac Index 2.4 - Labs CBC & Chem 7: 12/09/21 04:05 12/09/21 04:05 Labs: Abnormal Lab Results - Last 24 Hours (Table) 11/28/21 12/08/21 12/08/21 Range/Units 15:30 15:07 17:32 RBC (3.80-5.40) m/uL Hgb (11.4-16.0) gm/dL Hct (34.0-46.0) % Plt Count (150-450) k/uL Lymphocytes # (1.0-4.8) k/uL Sodium (137-145) mmol/L Carbon Dioxide (22-30) mmol/L Glucose (74-99) mg/dL POC Glucose (mg/dL) 130 H 123 H (70-110) mg/dL Calcium (8.4-10.2) mg/dL Ionized Calcium Elliott (4.5-5.3) mg/dL AST (14-36) U/L Alkaline Phosphatase (38-126) U/L Total Protein (6.3-8.2) g/dL Albumin (3.5-5.0) g/dL Crossmatch See Detail 12/09/21 12/09/21 12/09/21 Range/Units 04:05 04:05 11:24 RBC 2.71 L (3.80-5.40) m/uL Hgb 8.1 L D (11.4-16.0) gm/dL Hct 25.5 L (34.0-46.0) % Plt Count 105 L (150-450) k/uL Lymphocytes # 0.7 L (1.0-4.8) k/uL Sodium 129 L (137-145) mmol/L Carbon Dioxide 21 L (22-30) mmol/L Glucose 111 H (74-99) mg/dL POC Glucose (mg/dL) 111 H (70-110) mg/dL Calcium 7.2 L (8.4-10.2) mg/dL Ionized Calcium Elliott 4.2 L (4.5-5.3) mg/dL AST 47 H (14-36) U/L Alkaline Phosphatase 27 L (38-126) U/L Total Protein 4.9 L (6.3-8.2) g/dL Albumin 3.2 L (3.5-5.0) g/dL Crossmatch
[2021-12-09] MEDS: LIDOCAINE 5% PATCH TOPICAL PRN (14:48)
[2021-12-09] MEDS: SODIUM CHLORIDE 0.9% 1,000 ML IV SCH (14:54)
[2021-12-09 16:22] LABS: Glucose,Whole Blood 114 mg/dL (70-110)
[2021-12-09 20:57] LABS: Glucose,Whole Blood 113 mg/dL (70-110)
[2021-12-09] MEDS: SENNOSIDES-DOCUSATE SODIUM 1 EACH TAB PO SCH (21:08)
[2021-12-09] MEDS: ACETAMINOPHEN TAB 500 MG TAB PO PRN (21:23)
--- NOTE | 2021-12-09 23:13 | P.PN ---
Subjective This is a pleasant 80 years old male with multiple medical problems including hypothyroidism, gastroesophageal reflux, chronic back pain, GI bleed, osteoarthritis, history of diverticular bleed Presents for his heart disease as he was complaining of from severe triple coronary artery disease is status post coronary artery bypass grafting. Patient is doing well with no chest pain or dyspnea. No abdominal pain. No vomiting. No urinary complaints. No fever. He is hemodynamically stable. Labs reviewed. Hemoglobin 9.8. He is on insulin drip and aspirin 325 mg also he is on Toprol and amiodarone 12/09/2021 Patient with no chest pain or dyspnea. She is not have other complaint. Hemodynamically stable. Hemoglobin 9.8. Continue on aspirin, metoprolol and amiodarone Objective - Vital Signs Vital signs: Vital Signs Temp 99 F 12/09/21 08:00 Pulse 92 12/09/21 09:11 Resp 20 12/09/21 08:00 BP 111/60 12/09/21 08:00 Pulse Ox 93 L 12/09/21 09:01 FiO2 50 12/07/21 23:00 Intake & Output 12/08/21 12/09/21 12/09/21 18:59 06:59 18:59 Intake Total 4897.201 0340 79 Output Total 440 905 45 Balance 1334.916 393 34 Weight 71 kg 68.2 kg Intake: IV 1229 998 79 Albumin Human 5% 250 ml 500 In Empty Bag 1 bag @ 250 mls/hr IVPB Q1HR PRN Rx#: [id number] Sodium Chloride 0.9% 1, 400 600 50 000 ml @ 20 mls/hr IV . Q24H [facility] Rx#:[id number] cardiac output 180 290 20 ceFAZolin 2 gm In Sodium 50 Chloride 0.9% 50 ml @ 100 mls/hr IVPB Q8HR [facility] Rx# :[id number] pressure bags 99 108 9 Intake, IV Titration 335.916 Amount Amiodarone 450 mg In 219.449 Dextrose 5% in Water 250 ml @ 0.5 MG/MIN 16.667 mls/hr IV .Q15H [facility] Rx#: [id number] Clevidipine Butyrate 25 63.867 mg In Empty Bag 1 bag @ 1 MG/HR 2 mls/hr IV .Q24H [facility] Rx#:[id number] Insulin Regular 100 unit 22.313 In Sodium Chloride 0.9% 100 ml @ Per Protocol IV .Q0M [facility] Rx#:[id number] Milrinone-D5w Pmx 20 mg 6.412 In Dextrose/Water 1 100ml .bag @ 0.1 MCG/KG/MIN 2. 025 mls/hr IV .Q24H [facility] Rx#:[id number] Nitroglycerin-D5w Pmx 50 23.875 mg In Dextrose/Water 1 250ml.bag @ 5 MCG/MIN 1.5 mls/hr IV .Q24H [facility] Rx#: [id number] Oral 210 300 Output: Chest Tube Drainage 90 530 20 left pleural 30 210 10 mediastinal x2 50 70 0 right pleural 10 250 10 Urine 350 375 25 Other: Voiding Method Indwelling Catheter Indwelling Catheter ABP, PAP, CO, CI - Last Documented Arterial Blood Pressure 157/54 Pulmonary Artery Pressure 31/10 Cardiac Output 5.5 Cardiac Index 3.2 - Exam GENERAL: The patient is alert and oriented x3, not in any acute distress. Well developed, well nourished. HEENT: Pupils are round and equally reacting to light. EOMI. No scleral icterus. No conjunctival pallor. Normocephalic, atraumatic. No pharyngeal erythema. No thyromegaly. -CARDIOVASCULAR: S1 and S2 present. No murmurs, rubs, or gallops. Surgical wound with a dressing in a Place PULMONARY: Chest is clear to auscultation, no wheezing or crackles. ABDOMEN: Soft, nontender, nondistended, normoactive bowel sounds. No palpable organomegaly. MUSCULOSKELETAL: No joint swelling or deformity. EXTREMITIES: No cyanosis, clubbing, or pedal edema. NEUROLOGICAL: Gross neurological examination did not reveal any focal deficits. SKIN: No rashes. no petechiae. - Labs CBC & Chem 7: 12/09/21 04:05 12/09/21 17:57 Labs: Abnormal Lab Results - Last 24 Hours (Table) 11/28/21 12/08/21 12/08/21 Range/Units 15:30 10:38 12:10 RBC (3.80-5.40) m/uL Hgb (11.4-16.0) gm/dL Hct (34.0-46.0) % Plt Count (150-450) k/uL Lymphocytes # (1.0-4.8) k/uL Sodium (137-145) mmol/L Carbon Dioxide (22-30) mmol/L Glucose (74-99) mg/dL POC Glucose (mg/dL) 67 L 138 H (70-110) mg/dL Calcium (8.4-10.2) mg/dL Ionized Calcium Elliott (4.5-5.3) mg/dL AST (14-36) U/L Alkaline Phosphatase (38-126) U/L Total Protein (6.3-8.2) g/dL Albumin (3.5-5.0) g/dL Crossmatch See Detail 12/08/21 12/08/21 12/08/21 Range/Units 13:08 15:07 17:32 RBC (3.80-5.40) m/uL Hgb (11.4-16.0) gm/dL Hct (34.0-46.0) % Plt Count (150-450) k/uL Lymphocytes # (1.0-4.8) k/uL Sodium (137-145) mmol/L Carbon Dioxide (22-30) mmol/L Glucose (74-99) mg/dL POC Glucose (mg/dL) 146 H 130 H 123 H (70-110) mg/dL Calcium (8.4-10.2) mg/dL Ionized Calcium Elliott (4.5-5.3) mg/dL AST (14-36) U/L Alkaline Phosphatase (38-126) U/L Total Protein (6.3-8.2) g/dL Albumin (3.5-5.0) g/dL Crossmatch 12/09/21 12/09/21 Range/Units 04:05 04:05 RBC 2.71 L (3.80-5.40) m/uL Hgb 8.1 L D (11.4-16.0) gm/dL Hct 25.5 L (34.0-46.0) % Plt Count 105 L (150-450) k/uL Lymphocytes # 0.7 L (1.0-4.8) k/uL Sodium 129 L (137-145) mmol/L Carbon Dioxide 21 L (22-30) mmol/L Glucose 111 H (74-99) mg/dL POC Glucose (mg/dL) (70-110) mg/dL Calcium 7.2 L (8.4-10.2) mg/dL Ionized Calcium Elliott 4.2 L (4.5-5.3) mg/dL AST 47 H (14-36) U/L Alkaline Phosphatase 27 L (38-126) U/L Total Protein 4.9 L (6.3-8.2) g/dL Albumin 3.2 L (3.5-5.0) g/dL Crossmatch Assessment and Plan Assessment: Triple vessel coronary artery disease status post CABG Hypothyroidism History of GERD Chronic neck and back pain Plan: This is a pleasant 80 years old male status post CABG Continue with aspirin Continue with metoprolol and amiodarone 400 mg per orthotic technician Monitor glucose. Several consultants on the case including cardiology and pulmonary as well as surgery primary team. Labs and medication were reviewed.. Continue same treatment. Continue with symptomatic treatment. Resume home medication. Monitor lytes and vitals. DVT and GI prophylaxis. Further recommendations as per clinical course of the patient DVT prophylaxis: Subcutaneous Lovenox GI Prophylaxis: Ppi Thank you for consulting us
[2021-12-10] MEDS: KETOROLAC 15 MG/ML 1 ML VIAL IVP SCH ×4 (00:45→18:52)
[2021-12-10] MEDS: ACETAMINOPHEN TAB 500 MG TAB PO PRN ×2 (04:06→20:59)
[2021-12-10 05:17] LABS: Basophils % (A) 0 %; Eosinophils # (A) 0.1 k/uL (0-0.7); Eosinophils % (A) 3 %; HCT 25.2 % (34.0-46.0); HGB 8.5 gm/dL (11.4-16.0); Lymphocytes # (A) 0.8 k/uL (1.0-4.8); Lymphocytes % (A) 16 %; MCH 31.5 pg (25.0-35.0); MCHC 33.8 g/dL (31.0-37.0); Mean Platelet Volume 7.6; Monocytes # (A) 0.2 k/uL (0-1.0); Monocytes % (A) 4 %; Neutrophils # (A) 3.8 k/uL (1.3-7.7); Neutrophils % (A) 76 %; Platelet Count 131 k/uL (150-450); RBC 2.71 m/uL (3.80-5.40); RDW 13.6 % (11.5-15.5); WBC 4.9 k/uL (3.8-10.6)
[2021-12-10 05:34] LABS: ALT 19 U/L (4-34); AST 37 U/L (14-36); African American GFR (CKD) >90 (>60 ml/min/1.73 sqM); Alkaline Phosphatase 35 U/L (38-126); Anion Gap 9 mmol/L; Blood Urea Nitrogen 12 mg/dL (7-17); Calcium 7.1 mg/dL (8.4-10.2); Carbon Dioxide 19 mmol/L (22-30); Chloride 101 mmol/L (98-107); Glucose 103 mg/dL (74-99); Non-African American GFR(CKD) 89 (>60 ml/min/1.73 sqM); Potassium 3.7 mmol/L (3.5-5.1); Sodium 129 mmol/L (137-145); Total Bilirubin 0.7 mg/dL (0.2-1.3); Total Protein 4.9 g/dL (6.3-8.2)
[2021-12-10 06:32] LABS: Glucose,Whole Blood 113 mg/dL (70-110)
[2021-12-10] MEDS: INSULIN ASPART (NovoLOG) 100 UNIT/ML VIAL SQ SCH ×4 (06:33→20:05)
[2021-12-10] MEDS: ASCORBIC ACID 500 MG TAB PO SCH ×2 (06:34→18:52)
[2021-12-10] MEDS: PANTOPRAZOLE 40 MG TABLET PO SCH ×2 (06:34→18:52)
[2021-12-10] MEDS: FERROUS SULFATE 325 MG TAB PO SCH ×2 (06:34→18:52)
[2021-12-10] MEDS: LEVOTHYROXINE 25 MCG TAB PO SCH (06:34)
[2021-12-10] MEDS ORDERED: POTASSIUM CHLORIDE ER 20 MEQ TAB.ER PO STA ×2 (06:43→09:48)
[2021-12-10] MEDS ORDERED: POTASSIUM CHLORIDE 10 MEQ in WATER FOR INJECTION 1 100ML.BAG IVPB SCH (06:45)
[2021-12-10] MEDS ORDERED: POTASSIUM BICARBONATE/CIT AC 20 MEQ TABLET.EFF PO STA (06:48)
--- NOTE | 2021-12-10 06:50 | XR ---
EXAMINATION TYPE: XR chest 1V portable DATE OF EXAM: 12/10/2021 CLINICAL HISTORY: Difficulty breathing progress study. Postopen heart surgery. TECHNIQUE: Single AP portable upright view of the chest is obtained. COMPARISON: Chest x-ray from one day earlier and older studies. FINDINGS: Stable right internal jugular [place]-King catheter. Overlying sternal wires and mediastinal clips along with left atrial appendage clip are redemonstrated. There is cardiomegaly and chronic parenchymal change with left mid lung linear scarring and/or atelec tasis. No new focal airspace opacity, pleural effusion, or pneumothorax seen bilaterally. Metallic villa tures project over the cervical spine similar to prior. IMPRESSION: Cardiomegaly and chronic parenchymal changes without new suspicious acute pulmonary proce ss. No significant change from one day earlier.
[2021-12-10] MEDS ORDERED: CALCIUM GLUCONATE IN NACL 2 GM in SALINE 1 100ML.BAG IVPB ONE (08:00)
--- NOTE | 2021-12-10 08:07 | P.PN ---
Subjective Progress Note Date: 12/10/21 Principal diagnosis: Triple-vessel diffuse calcific coronary artery disease, preserved systolic function. Previous medical history of hypertension, hyperlipidemia, esophageal stricture with serial dilatation, previous tobacco dependence, peripheral arterial disease POD #3 quadruple coronary artery bypass grafting using the left internal mammary artery to the left anterior descending artery, reverse saphenous vein graft from the aorta to the first obtuse marginal artery, reverse saphenous vein graft from the previous vein graft and an anastomosis to the diagonal artery, reverse saphenous vein graft from the aorta to the posterior descending artery, exclusion of the left atrial appendage using a 35 mm AtriClip, endoscopic harvesting of the left greater saphenous vein, intraoperative graft flow measurements using the Vivid Logicstim system, intraoperative transesophageal echo cardiogram and epi-aortic scanning Postoperative acute blood loss anemia, expected given hemodilution and cardiopulmonary bypass pump The patient was seen and examined this morning sitting up in a recliner in the intensive care unit in no acute distress eating breakfast. Remains in sinus rhythm, remains a bit hypertensive, currently on IV Primacor and Cleviprex. Patient does complain of post surgical pain which is mostly controlled with current medication regimen, denies shortness of breath. Currently on room air, better effort with incentive spirometer but still only achieving 750 mL. P atient continues to have some generalized weakness and not ambulating very far with staff. Right internal jugular Helotes/Cordis, left/right pleural chest tubes all remain. No other new concerns. Objective - Vital Signs Vital signs: Vital Signs Temp 98.9 F 12/09/21 12:00 Pulse 90 12/10/21 07:00 Resp 22 12/10/21 06:00 BP 158/89 12/10/21 07:00 Pulse Ox 94 L 12/10/21 07:00 FiO2 50 12/07/21 23:00 Intake & Output 12/09/21 12/10/21 12/10/21 18:59 06:59 18:59 Intake Total 1225.670 4606 Output Total 1645 1820 Balance -252.493 -701 Weight 70.9 kg Intake: IV 539 819 Potassium Chloride 10 meq 100 In Water For Injection 1 100ml.bag @ 100 mls/hr IVPB Q1H [facility] Rx#: [id number] Potassium replacement 100 Sodium Chloride 0.9% 1, 450 260 000 ml @ 20 mls/hr IV . Q24H [facility] Rx#:[id number] cardiac output 80 260 pressure bags 9 99 Intake, IV Titration 293.507 Amount Calcium Gluconate in NaCl 100 1 gm In Saline 1 100ml. bag @ 100 mls/hr IVPB ONCE ONE Rx#:[id number] Milrinone-D5w Pmx 20 mg 93.507 In Dextrose/Water 1 100ml .bag @ 0.1 MCG/KG/MIN 2. 13 mls/hr IV .Q24H [facility] Rx #:[id number] Potassium Chloride 10 meq 100 In Water For Injection 1 100ml.bag @ 100 mls/hr IVPB Q1H [facility] Rx#: [id number] Oral 560 300 Output: Chest Tube Drainage 280 325 left pleural 130 150 mediastinal x2 0 right pleural 150 175 Urine 1365 1495 Other: Voiding Method Indwelling Catheter Indwelling Catheter ABP, PAP, CO, CI - Last Documented Arterial Blood Pressure 153/57 Pulmonary Artery Pressure 38/16 Cardiac Output 3.9 Cardiac Index 2.3 - Exam CONSTITUTIONAL: Appears comfortable, cooperative, no acute distress RESPIRATORY: Lungs sounds diminished bilaterally. Respirations even, nonlabored. Currently on room air with oxygen saturation 93%. Able to achieve 750 mL on incentive spirometry. Strong cough. CARDIOVASCULAR: S1, S2 present. Regular rate and rhythm, sinus rhythm on telemetry. Sternum stable. Palpable peripheral pulses bilaterally. No edema present. No calf pain or tenderness noted. Heart hugger in place with patient demonstrating appropriate use. Antiembolism stockings, SCDs present. GASTROINTESTINAL: Abdomen soft, nontender, nondistended, obese. Active bowel sounds present 4 quadrants. Tolerating diet. Positive small bowel movement GENITOURINARY: Savage present draining clear, yellow urine. Output overnight 30-300 mL per hour, 2810 mL in the last 24 hours INTEGUMENTARY: Skin is warm and dry with evidence of good perfusion. Anterior chest incision well approximated and covered with dry intact dressing. Left lower extremity EVH site well approximated without redness NEUROLOGIC: Cranial nerves II through XII intact MUSKULOSKELETAL: Able to move all extremities, strength equal bilaterally, generalized weakness present PSYCHIATRIC: Alert and oriented to person place and time, appropriate affect, intact judgment and insight INVASIVE LINES AND TUBES: Left/right pleural chest tubes present and connected to wall suction, no air leaks present. Left pleural chest tube with 100 mL serosanguineous drainage overnight, 250 mL in the last 24 hours. Right pleural chest tube with 120 mL serosanguineous drainage overnight, 300 mL in the last 24 hours. A/V epicardial pacemaker wires present, grounded. Right internal jugular Helotes/Cordis present. Last CO/CI 3.9/2.3, PA 35/14, CVP 12. - Allied health notes Allied health notes reviewed: nursing - Labs CBC & Chem 7: 12/10/21 04:56 12/10/21 04:56 Labs: Abnormal Lab Results - Last 24 Hours (Table) 12/09/21 12/09/21 12/09/21 Range/Units 11:24 16:20 20:55 RBC (3.80-5.40) m/uL Hgb (11.4-16.0) gm/dL Hct (34.0-46.0) % Plt Count (150-450) k/uL Lymphocytes # (1.0-4.8) k/uL Sodium (137-145) mmol/L Carbon Dioxide (22-30) mmol/L Glucose (74-99) mg/dL POC Glucose (mg/dL) 111 H 114 H 113 H (70-110) mg/dL Calcium (8.4-10.2) mg/dL AST (14-36) U/L Alkaline Phosphatase (38-126) U/L Total Protein (6.3-8.2) g/dL Albumin (3.5-5.0) g/dL 12/10/21 12/10/21 12/10/21 Range/Units 04:56 04:56 06:30 RBC 2.71 L (3.80-5.40) m/uL Hgb 8.5 L (11.4-16.0) gm/dL Hct 25.2 L (34.0-46.0) % Plt Count 131 L (150-450) k/uL Lymphocytes # 0.8 L (1.0-4.8) k/uL Sodium 129 L (137-145) mmol/L Carbon Dioxide 19 L (22-30) mmol/L Glucose 103 H (74-99) mg/dL POC Glucose (mg/dL) 113 H (70-110) mg/dL Calcium 7.1 L (8.4-10.2) mg/dL AST 37 H (14-36) U/L Alkaline Phosphatase 35 L (38-126) U/L Total Protein 4.9 L (6.3-8.2) g/dL Albumin 3.0 L (3.5-5.0) g/dL - Imaging and Cardiology Chest x-ray: report reviewed, image reviewed Assessment and Plan Assessment: 1. Triple-vessel diffuse calcific coronary artery disease, status post four- vessel CABG 2. Preserved systolic function 3. Hypertension 4. Hyperlipidemia, cholesterol 269, LDL 171, triglycerides 245 5. Esophageal stricture with serial dilatation 6. Previous tobacco dependence, preoperative FEV1 77% of predicted 7. Peripheral arterial disease, right lower extremity TORITO 0.83 8. Postoperative acute blood loss anemia, expected Plan: 1. Continue to maximize medical therapy with aspirin, statin, Plavix, beta rani therapy. Will increase beta rani therapy as tolerated, increased to 50 mm twice daily today 2. Wean Primacor, Cleviprex. Cozaar increased today. Discontinue Helotes later today 3. Continue amiodarone for A. fib prophylaxis 4. Encourage incentive spirometry was 10 times every hour while awake. Bronchodilators per pulmonology 5. Increase activity as tolerated. PT/OT/cardiac rehab consulted. Patient needs much encouragement 6. Will monitor daily labs and x-rays. Electrolyte replacement per protocol. IV lasix 20 mg with oral potassium ordered 7. GI/DVT prophylaxis 8. Pain control per medication regimen. Avoid narcotics 9. Insulin management per primary care service. Patient is not diabetic, preoperative hemoglobin A1c 5.8% 10. Continue pleural chest tubes for another 24 hours 11. Discontinue Savage catheter after diuresis from lasix, may bladder scan and straight cath for greater then 300 mL residual 12. Strict accurate intake and output. Daily weights 13. More recommendations to follow
[2021-12-10] MEDS: IPRATROPIUM-ALBUTEROL 3 ML NEB INHALATION SCH ×4 (08:25→20:27)
[2021-12-10] MEDS: ENOXAPARIN 40 MG/0.4 ML SYRINGE SQ SCH (08:30)
[2021-12-10] MEDS: AMIODARONE 200 MG TAB PO SCH ×2 (08:42→20:08)
[2021-12-10] MEDS: CHOLECALCIFEROL 25 MCG (1000 IU) TABLET PO SCH (08:42)
[2021-12-10] MEDS: ASPIRIN 325 MG TAB PO SCH (08:42)
[2021-12-10] MEDS: METOPROLOL TARTRATE 50 MG TAB PO SCH ×2 (08:42→20:09)
[2021-12-10] MEDS: CLOPIDOGREL 75 MG TAB PO SCH (08:42)
[2021-12-10] MEDS: ATORVASTATIN 40 MG TAB PO SCH (08:43)
[2021-12-10] MEDS: MULTIVITAMINS, THERA 1 EACH TAB PO SCH (08:43)
[2021-12-10] MEDS: MUPIROCIN 2% OINT 22 GM TUBE NASAL SCH ×2 (08:43→20:10)
[2021-12-10] MEDS ORDERED: LOSARTAN 50 MG TAB PO SCH ×2 (09:00→12:00)
[2021-12-10] MEDS ORDERED: FUROSEMIDE 10 MG/ML 2 ML VIAL IV ONE (10:00)
[2021-12-10] MEDS ORDERED: NON FORMULARY DRUG (Mirabegron [Myrbetriq] 25 MG Tab.Er.24h) PO SCH (11:00)
--- NOTE | 2021-12-10 11:07 | P.PN ---
Subjective Progress Note Date: 12/10/21 Principal diagnosis: Status post quadruple CABG postoperative day #3 This is an 80-year-old female with known history of hypertension and dyslipidemia patient has been developing dyspnea on exertion and chest discomfort. On 11/28, patient underwent cardiac catheterization, and she was found to have severe triple-vessel coronary artery disease, a right dominance, elevated left ventricular end-diastolic pressure. Patient was referred to surgery. Patient was seen by Samra, today the patient underwent myocardial revascularization. Postoperatively patient was kept on mechanical ventilation, and I was asked to see her on consultation. Presently the patient is in the ICU , she is on assist control rate of 16 volume 350 FiO2 50% and PEEP of 5 patient is on multiple drips including amiodarone 1 mg/m, nitroglycerin, propofol 50 mcg/m, milrinone, 0.2 mcg/kg/m, Cleviprex at 4 mg/h insulin at 2 units per hour. Patient has a cardiac output of 4.9 and cardiac index of 2.9. Chest x-ray showed small left pleural effusion with expected postoperative changes secondary to CABG. Reevaluated today on 12/08/21, patient remains in the ICU, she was extubated yesterday uneventfully. He is on 3 L nasal cannula. Remains on multiple drips including amiodarone at 0.5 mg/m, Cleviprex at 4 mg/h insulin at 5.5 units per hour patient is relatively asymptomatic, doing well, generally weak, able to achieve almost thousand cc with incentive spirometry. Chest x-ray showed chronic left lower lobe atelectasis and pleural effusion, small. No new process is noted. WBC scan 6.7 hemoglobin is 9.8. Basic metabolic profile is normal, renal profile is normal Reevaluated today on 12/09/21, patient remains in the ICU, sitting in her recliner, she is on 3 L nasal cannula, she is on Primacor at 0.1 mcg/kg/m, otherwise the patient is doing great. Patient is in sinus rhythm, hemodynami nehal stable, she is being weaned off Primacor. Her cardiac output and cardiac index was noted to be on the low side. Hence Primacor was restarted yesterday after stopping it. At times the patient is requiring clevidipine. Her postsurgical pain is controlled. She denies any shortness of breath. Achieving about 1000 mL with incentive spirometry. Continues to have mediastinal left and the right pleural chest tubes and she continues to have this Cordis and [place]- King catheter. WBC count is 4.7 hemoglobin is 8.1 electrolytes are normal except for slightly low sodium of 129. Blood sugar is 111. Seen on 12/10/21, patient is now postoperative day #3. Patient is now on room air, she is still requiring Primacor at 0.1 mcg/kg/m, her IV fluid to KVO, she is on Cleviprex at 2 mg per hour. Chest x-ray is reassuring, no active disease noted. She is in sinus rhythm, bit hypertensive on Cleviprex. Her cardiac index was a bit marginal at 2.3 cardiac output is 3.9, remains on Primacor. Achieving 750 ML in incentive spirometry. Generally weak. Continues to have right internal jugular [place]-King and Cordis. And she has left and right pleural chest tubes. WBC count is 4.9 hemoglobin 8.5. Normal except for slightly low sodium of 129 Objective - Vital Signs Vital signs: Vital Signs Temp 99.0 F 12/10/21 08:00 Pulse 84 12/10/21 10:00 Resp 13 12/10/21 08:39 BP 151/63 12/10/21 10:00 Pulse Ox 92 L 12/10/21 10:00 FiO2 50 12/07/21 23:00 Intake & Output 12/09/21 12/10/21 12/10/21 18:59 06:59 18:59 Intake Total 5647.290 1389 737 Output Total 1645 1820 570 Balance -252.493 -701 167 Weight 70.9 kg Intake: IV 539 819 207 Calcium Gluconate in NaCl 100 2 gm In Saline 1 100ml. bag @ 100 mls/hr IVPB ONCE ONE Rx#:[id number] Potassium Chloride 10 meq 100 In Water For Injection 1 100ml.bag @ 100 mls/hr IVPB Q1H [facility] Rx#: [id number] Potassium replacement 100 Sodium Chloride 0.9% 1, 450 260 50 000 ml @ 20 mls/hr IV . Q24H [facility] Rx#:[id number] cardiac output 80 260 30 pressure bags 9 99 27 Intake, IV Titration 293.507 50 Amount Calcium Gluconate in NaCl 100 1 gm In Saline 1 100ml. bag @ 100 mls/hr IVPB ONCE ONE Rx#:[id number] Clevidipine Butyrate 25 50 mg In Empty Bag 1 bag @ 1 MG/HR 2 mls/hr IV .Q24H [facility] Rx#:[id number] Milrinone-D5w Pmx 20 mg 93.507 In Dextrose/Water 1 100ml .bag @ 0.1 MCG/KG/MIN 2. 13 mls/hr IV .Q24H [facility] Rx #:[id number] Potassium Chloride 10 meq 100 In Water For Injection 1 100ml.bag @ 100 mls/hr IVPB Q1H [facility] Rx#: [id number] Oral 560 300 480 Output: Chest Tube Drainage 280 325 70 left pleural 130 150 20 mediastinal x2 0 right pleural 150 175 50 Urine 1365 1495 500 Other: Voiding Method Indwelling Catheter Indwelling Catheter ABP, PAP, CO, CI - Last Documented Arterial Blood Pressure 153/57 Pulmonary Artery Pressure 28/11 Cardiac Output 5.3 Cardiac Index 3.1 - Exam Physical Exam: Revealed 80-year-old female in no distress , on room air Head: Atraumatic, normocephalic. HEENT:[Neck is supple.] [No neck masses.] [No thyromegaly.] [No JVD.] Right IJ Cordis and [place]-King catheter noted. Chest: Symmetrical chest expansion, diminished breath sounds at the bases no rhonchi no wheezes, bilateral chest tubes noted Cardiac Exam: Distant S1 and S2, no S3 gallop, positive pericardial rub. Abdomen: [Soft, nontender, no megaly, no rebound, no guarding, normal bowel sounds.] Extremities: [No clubbing, no edema, no cyanosis.] Neurological Exam: Alert and oriented 3 focal neurologic deficit psychiatric: Normal mood, affect and normal mental status examination. Skin: No rashes. - Labs CBC & Chem 7: 12/10/21 04:56 12/10/21 04:56 Labs: Abnormal Lab Results - Last 24 Hours (Table) 12/09/21 12/09/21 12/09/21 Range/Units 11:24 16:20 20:55 RBC (3.80-5.40) m/uL Hgb (11.4-16.0) gm/dL Hct (34.0-46.0) % Plt Count (150-450) k/uL Lymphocytes # (1.0-4.8) k/uL Sodium (137-145) mmol/L Carbon Dioxide (22-30) mmol/L Glucose (74-99) mg/dL POC Glucose (mg/dL) 111 H 114 H 113 H (70-110) mg/dL Calcium (8.4-10.2) mg/dL AST (14-36) U/L Alkaline Phosphatase (38-126) U/L Total Protein (6.3-8.2) g/dL Albumin (3.5-5.0) g/dL 12/10/21 12/10/21 12/10/21 Range/Units 04:56 04:56 06:30 RBC 2.71 L (3.80-5.40) m/uL Hgb 8.5 L (11.4-16.0) gm/dL Hct 25.2 L (34.0-46.0) % Plt Count 131 L (150-450) k/uL Lymphocytes # 0.8 L (1.0-4.8) k/uL Sodium 129 L (137-145) mmol/L Carbon Dioxide 19 L (22-30) mmol/L Glucose 103 H (74-99) mg/dL POC Glucose (mg/dL) 113 H (70-110) mg/dL Calcium 7.1 L (8.4-10.2) mg/dL AST 37 H (14-36) U/L Alkaline Phosphatase 35 L (38-126) U/L Total Protein 4.9 L (6.3-8.2) g/dL Albumin 3.0 L (3.5-5.0) g/dL Assessment and Plan Assessment: Impression: Status post CABG for triple vessel coronary artery disease, postoperative day #3 Benign essential hypertension Degenerative joint disease History of GI bleeding History of GERD History of hypothyroidism History of overactive bladder Chronic low back pain Remote smoking history quit smoking in 2005 Recommendation: Continue beta blockers and statins and aspirin and Plavix, still requiring Prima cor for relatively low cardiac output. Cardiac index is 2.3 today Continue amiodarone for atrial fibrillation prophylaxis and transition to oral. Incentive spirometry, patient is achieving 750 ML. Ambulate Continue GI and DVT prophylaxis Continue insulin Continue updrafts We'll continue to follow. Time with Patient: Less than 30
[2021-12-10 11:14] LABS: Glucose,Whole Blood 110 mg/dL (70-110)
[2021-12-10] MEDS ORDERED: POTASSIUM BICARBONATE/CIT AC 20 MEQ TABLET.EFF PO ONE (11:30)
--- NOTE | 2021-12-10 13:27 | P.PN ---
Subjective HISTORY OF PRESENTING ILLNESS Patient has a known history of Triple-vessel coronary artery disease, preserved systolic function. Previous medical history of hypertension, hyperlipidemia, esophageal stricture with serial dilatation, previous tobacco dependence, peripheral arterial disease and follows with Dr. Velez in the office She is postop day 1 after a quadruple coronary artery bypass grafting using the left internal mammary artery to the left anterior descending artery, reverse saphenous vein graft from the aorta to the first obtuse marginal artery, reverse saphenous vein graft from the previous vein graft and an anastomosis to the d iagonal artery, reverse saphenous vein graft from the aorta to the posterior descending artery, exclusion of the left atrial appendage using a 35 mm AtriClip, endoscopic harvesting of the left greater saphenous vein, intraoperative graft flow measurements using the [employer] system, intraoperative transesophageal echocardiogram and epi-aortic scanning Patient is examined today resting comfortably in chair with no signs of acute distress. She denies increased shortness of breath or chest pain. She does report surgical pain. She has remained in sinus rhythm. She is on amiodarone and nitro drip prophylactically Patient had a carotid ultrasound which was negative for stenosis, her echocardiogram shows a mildly decreased LV function with an ejection fraction of 45-50%, moderate left ventricular hypertrophy, mild mitral regurgitation, and mild aortic stenosis. She will continue on aspirin Lipitor Plavix and Lopressor. 12/09 Patient seen and examined. Patient states she is feeling "okay". Still remains on low dose milrinone 0.1. Atco-King catheter in with PA pressure 41/22. Denie s any chest pain or pressure. No shortness breath. 12/10 Patient seen and examined. Patient mildly hypertensive and has been on milrinone as well as Cleviprex. Currently states she is feeling mildly improved. Was able to tolerate some of her meal. Denies any chest pain or pressure. Still has both chest tubes in place. PHYSICAL EXAMINATION Vital signs reviewed. CONSTITUTIONAL: No apparent distress. HEENT: Head is normocephalic. Pupils are equal, round. Sclerae anicteric. Mucous membranes of the mouth are moist. No JVD. No carotid bruit. CHEST EXAMINATION: Lungs are clear to auscultation. No chest wall tenderness is noted on palpation or with deep breathing. HEART EXAMINATION: Regular rate and rhythm. S1, S2 heard. No murmurs, gallops or rub. ABDOMEN: Soft, nontender. Positive bowel sounds. EXTREMITIES: 2+ peripheral pulses, no lower extremity edema and no calf tenderness. NEUROLOGIC EXAMINATION: Patient is awake, alert and oriented x3. ASSESSMENT Triple-vessel coronary artery disease, status post four-vessel CABG Hypertension Hyperlipidemia Mild decreased EF 45-50% PLAN: Her metoprolol was increased to 50 mg twice a day and additionally losartan was increased to 50 mg daily. Continue with aspirin and Plavix as well as statin. Wean Cleviprex and milrinone is able. Patient appears to be progressing and continue with current regimen. Objective - Vital Signs Vital signs: Vital Signs Temp 99.9 F H 12/10/21 12:00 Pulse 79 12/10/21 13:00 Resp 16 12/10/21 11:46 BP 130/73 12/10/21 13:00 Pulse Ox 96 12/10/21 13:00 FiO2 50 12/07/21 23:00 Intake & Output 12/09/21 12/10/21 12/10/21 18:59 06:59 18:59 Intake Total 6555.088 9748 884 Output Total 1645 1820 1505 Balance -252.493 -701 -621 Weight 70.9 kg Intake: IV 539 819 354 Calcium Gluconate in NaCl 100 2 gm In Saline 1 100ml. bag @ 100 mls/hr IVPB ONCE ONE Rx#:[id number] Potassium Chloride 10 meq 100 In Water For Injection 1 100ml.bag @ 100 mls/hr IVPB Q1H [facility] Rx#: [id number] Potassium replacement 100 Sodium Chloride 0.9% 1, 450 260 110 000 ml @ 20 mls/hr IV . Q24H [facility] Rx#:[id number] cardiac output 80 260 90 pressure bags 9 99 54 Intake, IV Titration 293.507 50 Amount Calcium Gluconate in NaCl 100 1 gm In Saline 1 100ml. bag @ 100 mls/hr IVPB ONCE ONE Rx#:[id number] Clevidipine Butyrate 25 50 mg In Empty Bag 1 bag @ 1 MG/HR 2 mls/hr IV .Q24H [facility] Rx#:[id number] Milrinone-D5w Pmx 20 mg 93.507 In Dextrose/Water 1 100ml .bag @ 0.1 MCG/KG/MIN 2. 13 mls/hr IV .Q24H [facility] Rx #:[id number] Potassium Chloride 10 meq 100 In Water For Injection 1 100ml.bag @ 100 mls/hr IVPB Q1H [facility] Rx#: [id number] Oral 560 300 480 Output: Chest Tube Drainage 280 325 130 left pleural 130 150 50 mediastinal x2 0 right pleural 150 175 80 Urine 1365 1495 1375 Other: Voiding Method Indwelling Catheter Indwelling Catheter Indwelling Catheter ABP, PAP, CO, CI - Last Documented Arterial Blood Pressure 153/57 Pulmonary Artery Pressure 30/11 Cardiac Output 3.3 Cardiac Index 1.9 - Labs CBC & Chem 7: 12/10/21 04:56 12/10/21 04:56 Labs: Abnormal Lab Results - Last 24 Hours (Table) 12/09/21 12/09/21 12/10/21 Range/Units 16:20 20:55 04:56 RBC 2.71 L (3.80-5.40) m/uL Hgb 8.5 L (11.4-16.0) gm/dL Hct 25.2 L (34.0-46.0) % Plt Count 131 L (150-450) k/uL Lymphocytes # 0.8 L (1.0-4.8) k/uL Sodium (137-145) mmol/L Carbon Dioxide (22-30) mmol/L Glucose (74-99) mg/dL POC Glucose (mg/dL) 114 H 113 H (70-110) mg/dL Calcium (8.4-10.2) mg/dL AST (14-36) U/L Alkaline Phosphatase (38-126) U/L Total Protein (6.3-8.2) g/dL Albumin (3.5-5.0) g/dL 12/10/21 12/10/21 Range/Units 04:56 06:30 RBC (3.80-5.40) m/uL Hgb (11.4-16.0) gm/dL Hct (34.0-46.0) % Plt Count (150-450) k/uL Lymphocytes # (1.0-4.8) k/uL Sodium 129 L (137-145) mmol/L Carbon Dioxide 19 L (22-30) mmol/L Glucose 103 H (74-99) mg/dL POC Glucose (mg/dL) 113 H (70-110) mg/dL Calcium 7.1 L (8.4-10.2) mg/dL AST 37 H (14-36) U/L Alkaline Phosphatase 35 L (38-126) U/L Total Protein 4.9 L (6.3-8.2) g/dL Albumin 3.0 L (3.5-5.0) g/dL
[2021-12-10 16:40] LABS: Glucose,Whole Blood 105 mg/dL (70-110)
[2021-12-10] MEDS: CLEVIDIPINE BUTYRATE 25 MG in EMPTY BAG 1 BAG IV SCH (20:05)
[2021-12-10 20:06] LABS: Glucose,Whole Blood 109 mg/dL (70-110)
[2021-12-10] MEDS: SENNOSIDES-DOCUSATE SODIUM 1 EACH TAB PO SCH (20:08)
[2021-12-10] MEDS: MILRINONE-D5W PMX 20 MG in DEXTROSE/WATER 1 100ML.BAG IV SCH (20:11)
[2021-12-10] MEDS: SODIUM CHLORIDE 0.9% 1,000 ML IV SCH (20:11)
[2021-12-10] MEDS: NON FORMULARY DRUG (Mirabegron [Myrbetriq] 25 MG Tab.Er.24h) PO SCH (20:59)
[2021-12-10] MEDS: LIDOCAINE 5% PATCH TOPICAL PRN (23:04)
[2021-12-11] MEDS: KETOROLAC 15 MG/ML 1 ML VIAL IVP SCH ×2 (00:01→06:15)
[2021-12-11 04:37] LABS: HCT 26.4 % (34.0-46.0); HGB 8.6 gm/dL (11.4-16.0); MCH 30.2 pg (25.0-35.0); MCHC 32.6 g/dL (31.0-37.0); MCV 92.6 fL (80.0-100.0); Mean Platelet Volume 8.5; Platelet Count 152 k/uL (150-450); RBC 2.85 m/uL (3.80-5.40); RDW 13.5 % (11.5-15.5); WBC 6.2 k/uL (3.8-10.6)
[2021-12-11 04:54] LABS: African American GFR (CKD) >90 (>60 ml/min/1.73 sqM); Anion Gap 9 mmol/L; Blood Urea Nitrogen 12 mg/dL (7-17); Calcium 7.5 mg/dL (8.4-10.2); Carbon Dioxide 20 mmol/L (22-30); Chloride 105 mmol/L (98-107); Glucose 98 mg/dL (74-99); Non-African American GFR(CKD) 83 (>60 ml/min/1.73 sqM); Potassium 3.9 mmol/L (3.5-5.1); Sodium 134 mmol/L (137-145)
[2021-12-11 06:11] LABS: Glucose,Whole Blood 101 mg/dL (70-110)
[2021-12-11] MEDS: INSULIN ASPART (NovoLOG) 100 UNIT/ML VIAL SQ SCH ×4 (06:11→20:19)
[2021-12-11] MEDS: FERROUS SULFATE 325 MG TAB PO SCH ×2 (06:16→18:16)
[2021-12-11] MEDS: LEVOTHYROXINE 25 MCG TAB PO SCH (06:16)
[2021-12-11] MEDS: ASCORBIC ACID 500 MG TAB PO SCH ×2 (06:16→18:16)
[2021-12-11] MEDS: PANTOPRAZOLE 40 MG TABLET PO SCH ×2 (06:16→18:16)
--- NOTE | 2021-12-11 06:44 | XR ---
EXAMINATION TYPE: XR chest 1V portable DATE OF EXAM: 12/11/2021 5:31 AM COMPARISON: Chest radiographs from 12/10/2021. TECHNIQUE: XR chest 1V portable Frontal view of the chest. CLINICAL INDICATION:Female, 80 years old with history of post cardiac surgery; FINDINGS: Lungs/Pleura: No pneumothorax or pleural effusion. Chronic parenchymal change with left midlung linea r scarring and/or atelectasis redemonstrated. No new focal airspace opacity. Pulmonary vascularity: Unremarkable. Heart/mediastinum: Cardiomediastinal silhouette is enlarged and stable. Postoperative changes are pr esent in the mediastinum with left atrial appendage clip and mediastinal clips. Atherosclerotic calci fication the aorta. Musculoskeletal: No acute osseous pathology. Midline sternotomy wires are noted and stable. Metallic sutures again project over the cervical spine. Lines/Tubes: Stable right internal jugular Aurora-King catheter. IMPRESSION: Overall unchanged examination with cardiomegaly and chronic parenchyma changes without new suspicious acute pulmonary process.
[2021-12-11] MEDS ORDERED: POTASSIUM BICARBONATE/CIT AC 20 MEQ TABLET.EFF NG-TUBE SCH (07:00)
--- NOTE | 2021-12-11 07:10 | P.PN ---
Subjective Progress Note Date: 12/11/21 Principal diagnosis: CAD and status post open heart The patient is an 80-year-old female patient who was experiencing symptoms of chest discomfort and shortness of breath with exertion. She underwent a heart catheterization and that revealed severe triple-vessel coronary artery disease. She underwent CABG. The patient was seen this morning. She seems to be stable overall. She continues to be on Primacor because of cardiac index. Her cardiac index this morning is 2.7. She continues to be hypertensive and currently she is on calcium channel rani. Otherwise she is on dual antiplatelet therapy as well as intermediate intensity statin. Also she is on beta rani as well as TATI. Urine output has been within normal limits. Her hemoglobin is above 8 this morning. She underwent a chest x-ray this morning and that did not show any acute abnormalities. Objective - Vital Signs Vital signs: Vital Signs Temp 98.3 F 12/11/21 04:00 Pulse 82 12/11/21 07:00 Resp 37 H 12/11/21 07:00 BP 128/73 12/11/21 07:00 Pulse Ox 95 12/11/21 07:00 FiO2 50 12/07/21 23:00 Intake & Output 12/10/21 12/11/21 12/11/21 18:59 06:59 18:59 Intake Total 1259 374.467 29 Output Total 1670 1730 0 Balance -411 -1355.533 29 Weight 72.1 kg Intake: IV 529 348 29 Calcium Gluconate in NaCl 100 2 gm In Saline 1 100ml. bag @ 100 mls/hr IVPB ONCE ONE Rx#:[id number] Sodium Chloride 0.9% 1, 210 240 20 000 ml @ 20 mls/hr IV . Q24H [facility] Rx#:[id number] cardiac output 120 pressure bags 99 108 9 Intake, IV Titration 150 26.467 Amount Clevidipine Butyrate 25 50 26.467 mg In Empty Bag 1 bag @ 1 MG/HR 2 mls/hr IV .Q24H [facility] Rx#:[id number] Milrinone-D5w Pmx 20 mg 100 In Dextrose/Water 1 100ml .bag @ 0.1 MCG/KG/MIN 2. 13 mls/hr IV .Q24H [facility] Rx #:[id number] Oral 580 Output: Chest Tube Drainage 210 230 0 left pleural 90 130 0 right pleural 120 100 0 Urine 1460 1500 0 Other: Voiding Method Indwelling Catheter Bedside Commode # Voids 0 0 # Bowel Movements 1 ABP, PAP, CO, CI - Last Documented Arterial Blood Pressure 147/66 Pulmonary Artery Pressure 49/37 Cardiac Output 4.3 Cardiac Index 2.7 - Constitutional General appearance: Present: no acute distress - Respiratory Respiratory: bilateral: diminished - Cardiovascular Rhythm: regular Heart sounds: normal: S1, S2 - Labs CBC & Chem 7: 12/11/21 04:15 12/11/21 04:15 Labs: Abnormal Lab Results - Last 24 Hours (Table) 12/11/21 12/11/21 Range/Units 04:15 04:15 RBC 2.85 L (3.80-5.40) m/uL Hgb 8.6 L (11.4-16.0) gm/dL Hct 26.4 L (34.0-46.0) % Sodium 134 L (137-145) mmol/L Carbon Dioxide 20 L (22-30) mmol/L Calcium 7.5 L (8.4-10.2) mg/dL Assessment and Plan Assessment: Assessment #1 severe triple-vessel CAD and status post CABG #2 mild cardiomyopathy #3 hypertension #4 dyslipidemia Plan #1 try to wean the patient from calcium channel rani IV #2 continue dual antiplatelet therapy as well as intermediate intensity statin #3 down the line we will increase the dose of statin into high intensity #4 try to wean the patient from Primacor as well as #5 continue dual antiplatelet therapy
[2021-12-11] MEDS: IPRATROPIUM-ALBUTEROL 3 ML NEB INHALATION SCH ×4 (08:25→19:30)
[2021-12-11] MEDS ORDERED: POTASSIUM BICARBONATE/CIT AC 20 MEQ TABLET.EFF PO ONE (08:33)
[2021-12-11] MEDS ORDERED: FUROSEMIDE 10 MG/ML 2 ML VIAL IV ONE (08:33)
--- NOTE | 2021-12-11 08:46 | P.PN ---
Subjective Progress Note Date: 12/11/21 Principal diagnosis: Triple-vessel diffuse calcific coronary artery disease, preserved systolic function. Previous medical history of hypertension, hyperlipidemia, esophageal stricture with serial dilatation, previous tobacco dependence, peripheral arterial disease POD #4 quadruple coronary artery bypass grafting using the left internal mammary artery to the left anterior descending artery, reverse saphenous vein graft from the aorta to the first obtuse marginal artery, reverse saphenous vein graft from the previous vein graft and an anastomosis to the diagonal artery, reverse saphenous vein graft from the aorta to the posterior descending artery, exclusion of the left atrial appendage using a 35 mm AtriClip, endoscopic harvesting of the left greater saphenous vein, intraoperative graft flow measurements using the [employer] system, intraoperative transesophageal echo cardiogram and epi-aortic scanning Postoperative acute blood loss anemia, expected given hemodilution and cardiopulmonary bypass pump The patient was seen and examined this morning sitting up in a recliner in the intensive care unit in no acute distress eating breakfast. Remains in sinus rhythm, remains a bit hypertensive, currently on IV Primacor and Cleviprex. Patient does complain of back pain which is chronic for her, utilizing Lidoderm patch she states is better controlled this morning, denies shortness of breath. Currently on 2 L nasal cannula, achieving 1000 mL on her incentive spirometer. Patient continues to have some generalized weakness and not ambulating very far with staff. Right internal jugular [place]/Cordis, left/right pleural chest tubes all remain. No other new concerns. Objective - Vital Signs Vital signs: Vital Signs Temp 98.3 F 12/11/21 04:00 Pulse 82 12/11/21 07:00 Resp 37 H 12/11/21 07:00 BP 128/73 12/11/21 07:00 Pulse Ox 95 12/11/21 07:00 FiO2 50 12/07/21 23:00 Intake & Output 12/10/21 12/11/21 12/11/21 18:59 06:59 18:59 Intake Total 1259 374.467 29 Output Total 1670 1730 0 Balance -411 -1355.533 29 Weight 72.1 kg Intake: IV 529 348 29 Calcium Gluconate in NaCl 100 2 gm In Saline 1 100ml. bag @ 100 mls/hr IVPB ONCE ONE Rx#:[id number] Sodium Chloride 0.9% 1, 210 240 20 000 ml @ 20 mls/hr IV . Q24H [facility] Rx#:[id number] cardiac output 120 pressure bags 99 108 9 Intake, IV Titration 150 26.467 Amount Clevidipine Butyrate 25 50 26.467 mg In Empty Bag 1 bag @ 1 MG/HR 2 mls/hr IV .Q24H [facility] Rx#:[id number] Milrinone-D5w Pmx 20 mg 100 In Dextrose/Water 1 100ml .bag @ 0.1 MCG/KG/MIN 2. 13 mls/hr IV .Q24H [facility] Rx #:[id number] Oral 580 Output: Chest Tube Drainage 210 230 0 left pleural 90 130 0 right pleural 120 100 0 Urine 1460 1500 0 Other: Voiding Method Indwelling Catheter Bedside Commode # Voids 0 0 # Bowel Movements 1 ABP, PAP, CO, CI - Last Documented Arterial Blood Pressure 147/66 Pulmonary Artery Pressure 49/37 Cardiac Output 4.3 Cardiac Index 2.7 - Exam CONSTITUTIONAL: Appears comfortable, cooperative, no acute distress RESPIRATORY: Lungs sounds diminished bilaterally. Respirations even, nonlabored. Currently on 2 L nasal cannula with oxygen saturation 97%. Able to achieve 1000 mL on incentive spirometry. Strong cough. CARDIOVASCULAR: S1, S2 present. Regular rate and rhythm, sinus rhythm on telemetry. Sternum stable. Palpable peripheral pulses bilaterally. No edema present. No calf pain or tenderness noted. Heart hugger in place with patient demonstrating appropriate use. Antiembolism stockings, SCDs present. GASTROINTESTINAL: Abdomen soft, nontender, nondistended, obese. Active bowel sounds present 4 quadrants. Tolerating diet. Positive bowel movement GENITOURINARY: Savage discontinued yesterday, positive void. Output 2960 mL in the last 24 hours INTEGUMENTARY: Skin is warm and dry with evidence of good perfusion. Anterior chest incision well approximated and covered with dry intact dressing. Left lower extremity EVH site well approximated without redness NEUROLOGIC: Cranial nerves II through XII intact MUSKULOSKELETAL: Able to move all extremities, strength equal bilaterally, generalized weakness present PSYCHIATRIC: Alert and oriented to person place and time, appropriate affect, intact judgment and insight INVASIVE LINES AND TUBES: Left/right pleural chest tubes present and connected to wall suction, no air leaks present. Left pleural chest tube with 100 mL serosanguineous drainage overnight, 250 mL in the last 24 hours. Right pleural chest tube with 70 mL serosanguineous drainage overnight, 200 mL in the last 24 hours. A/V epicardial pacemaker wires present, grounded. Right internal jugular [place]/Cordis present. Last CO/CI 4.3/2.7, PA , CVP 11. - Allied health notes Allied health notes reviewed: nursing - Labs CBC & Chem 7: 12/11/21 04:15 12/11/21 04:15 Labs: Abnormal Lab Results - Last 24 Hours (Table) 12/11/21 12/11/21 Range/Units 04:15 04:15 RBC 2.85 L (3.80-5.40) m/uL Hgb 8.6 L (11.4-16.0) gm/dL Hct 26.4 L (34.0-46.0) % Sodium 134 L (137-145) mmol/L Carbon Dioxide 20 L (22-30) mmol/L Calcium 7.5 L (8.4-10.2) mg/dL - Imaging and Cardiology Chest x-ray: report reviewed, image reviewed Assessment and Plan Assessment: 1. Triple-vessel diffuse calcific coronary artery disease, status post four- vessel CABG 2. Preserved systolic function 3. Hypertension 4. Hyperlipidemia, cholesterol 269, LDL 171, triglycerides 245 5. Esophageal stricture with serial dilatation 6. Previous tobacco dependence, preoperative FEV1 77% of predicted 7. Peripheral arterial disease, right lower extremity TORITO 0.83 8. Postoperative acute blood loss anemia, expected Plan: 1. Continue to maximize medical therapy with aspirin, statin, Plavix, beta rani therapy. Will increase beta rani therapy as tolerated 2. Wean Primacor, Cleviprex. Cozaar increased again today, increased to 100 mg daily. Discontinue [place] later today 3. Continue amiodarone for A. fib prophylaxis 4. Wean oxygen as tolerated. Encourage incentive spirometry was 10 times every hour while awake. Bronchodilators per pulmonology 5. Increase activity as tolerated. PT/OT/cardiac rehab consulted. Patient needs much encouragement 6. Will monitor daily labs and x-rays. Electrolyte replacement per protocol. IV lasix 20 mg with oral potassium ordered 7. GI/DVT prophylaxis 8. Pain control per medication regimen. Avoid narcotics 9. Insulin management per primary care service. Patient is not diabetic, preoperative hemoglobin A1c 5.8% 10. Will discontinue pleural chest tubes today 11. May bladder scan and straight cath for greater then 300 mL residual 12. Strict accurate intake and output. Daily weights 13. More recommendations to follow
[2021-12-11] MEDS: ASPIRIN 325 MG TAB PO SCH (08:50)
[2021-12-11] MEDS: ATORVASTATIN 40 MG TAB PO SCH (08:50)
[2021-12-11] MEDS: AMIODARONE 200 MG TAB PO SCH ×2 (08:50→20:18)
[2021-12-11] MEDS: MULTIVITAMINS, THERA 1 EACH TAB PO SCH (08:50)
[2021-12-11] MEDS: CHOLECALCIFEROL 25 MCG (1000 IU) TABLET PO SCH (08:50)
[2021-12-11] MEDS: CLOPIDOGREL 75 MG TAB PO SCH (08:50)
[2021-12-11] MEDS: LOSARTAN 50 MG TAB PO SCH (08:50)
[2021-12-11] MEDS: ACETAMINOPHEN TAB 500 MG TAB PO PRN ×2 (08:51→21:23)
[2021-12-11] MEDS: ENOXAPARIN 40 MG/0.4 ML SYRINGE SQ SCH (08:51)
[2021-12-11] MEDS: METOPROLOL TARTRATE 50 MG TAB PO SCH ×2 (08:51→20:19)
[2021-12-11] MEDS: MUPIROCIN 2% OINT 22 GM TUBE NASAL SCH ×2 (08:52→20:18)
--- NOTE | 2021-12-11 09:52 | P.PN ---
Subjective This is a pleasant 80 years old male with multiple medical problems including hypothyroidism, gastroesophageal reflux, chronic back pain, GI bleed, osteoarthritis, history of diverticular bleed Presents for his heart disease as he was complaining of from severe triple coronary artery disease is status post coronary artery bypass grafting. Patient is doing well with no chest pain or dyspnea. No abdominal pain. No vomiting. No urinary complaints. No fever. He is hemodynamically stable. Labs reviewed. Hemoglobin 9.8. He is on insulin drip and aspirin 325 mg also he is on Toprol and amiodarone 12/09/2021 Patient with no chest pain or dyspnea. She is not have other complaint. Hemodynamically stable. Hemoglobin 9.8. Continue on aspirin, metoprolol and amiodarone 12/10/2021 Patients with no new complaints. He denies any chest pain she looks comfortable and eating her breakfast with no difficulties. Patient blood pressure was 130 to 140 and nurse assistant following the patient closely, metoprolol and losartan were added for better tighter control. She is on aspirin and Plavix Objective - Vital Signs Vital signs: Vital Signs Temp 99.0 F 12/10/21 08:00 Pulse 94 12/10/21 08:39 Resp 13 12/10/21 08:39 BP 115/64 12/10/21 08:00 Pulse Ox 95 12/10/21 08:25 FiO2 50 12/07/21 23:00 Intake & Output 12/09/21 12/10/21 12/10/21 18:59 06:59 18:59 Intake Total 6295.204 4555 32 Output Total 1645 1820 190 Balance -252.493 -701 -158 Weight 70.9 kg Intake: IV 539 819 32 Potassium Chloride 10 meq 100 In Water For Injection 1 100ml.bag @ 100 mls/hr IVPB Q1H [facility] Rx#: [id number] Potassium replacement 100 Sodium Chloride 0.9% 1, 450 260 20 000 ml @ 20 mls/hr IV . Q24H [facility] Rx#:[id number] cardiac output 80 260 3 pressure bags 9 99 9 Intake, IV Titration 293.507 Amount Calcium Gluconate in NaCl 100 1 gm In Saline 1 100ml. bag @ 100 mls/hr IVPB ONCE ONE Rx#:[id number] Milrinone-D5w Pmx 20 mg 93.507 In Dextrose/Water 1 100ml .bag @ 0.1 MCG/KG/MIN 2. 13 mls/hr IV .Q24H [facility] Rx #:[id number] Potassium Chloride 10 meq 100 In Water For Injection 1 100ml.bag @ 100 mls/hr IVPB Q1H [facility] Rx#: [id number] Oral 560 300 Output: Chest Tube Drainage 280 325 40 left pleural 130 150 20 mediastinal x2 0 right pleural 150 175 20 Urine 1365 1495 150 Other: Voiding Method Indwelling Catheter Indwelling Catheter ABP, PAP, CO, CI - Last Documented Arterial Blood Pressure 153/57 Pulmonary Artery Pressure 24/10 Cardiac Output 3.9 Cardiac Index 2.3 - Exam GENERAL: The patient is alert and oriented x3, not in any acute distress. Well developed, well nourished. HEENT: Pupils are round and equally reacting to light. EOMI. No scleral icterus. No conjunctival pallor. Normocephalic, atraumatic. No pharyngeal erythema. No thyromegaly. -CARDIOVASCULAR: S1 and S2 present. No murmurs, rubs, or gallops. Surgical wound with a dressing in a Place PULMONARY: Chest is clear to auscultation, no wheezing or crackles. ABDOMEN: Soft, nontender, nondistended, normoactive bowel sounds. No palpable organomegaly. MUSCULOSKELETAL: No joint swelling or deformity. EXTREMITIES: No cyanosis, clubbing, or pedal edema. NEUROLOGICAL: Gross neurological examination did not reveal any focal deficits. SKIN: No rashes. no petechiae. - Labs CBC & Chem 7: 12/11/21 04:15 12/11/21 04:15 Labs: Abnormal Lab Results - Last 24 Hours (Table) 12/09/21 12/09/21 12/09/21 Range/Units 11:24 16:20 20:55 RBC (3.80-5.40) m/uL Hgb (11.4-16.0) gm/dL Hct (34.0-46.0) % Plt Count (150-450) k/uL Lymphocytes # (1.0-4.8) k/uL Sodium (137-145) mmol/L Carbon Dioxide (22-30) mmol/L Glucose (74-99) mg/dL POC Glucose (mg/dL) 111 H 114 H 113 H (70-110) mg/dL Calcium (8.4-10.2) mg/dL AST (14-36) U/L Alkaline Phosphatase (38-126) U/L Total Protein (6.3-8.2) g/dL Albumin (3.5-5.0) g/dL 12/10/21 12/10/21 12/10/21 Range/Units 04:56 04:56 06:30 RBC 2.71 L (3.80-5.40) m/uL Hgb 8.5 L (11.4-16.0) gm/dL Hct 25.2 L (34.0-46.0) % Plt Count 131 L (150-450) k/uL Lymphocytes # 0.8 L (1.0-4.8) k/uL Sodium 129 L (137-145) mmol/L Carbon Dioxide 19 L (22-30) mmol/L Glucose 103 H (74-99) mg/dL POC Glucose (mg/dL) 113 H (70-110) mg/dL Calcium 7.1 L (8.4-10.2) mg/dL AST 37 H (14-36) U/L Alkaline Phosphatase 35 L (38-126) U/L Total Protein 4.9 L (6.3-8.2) g/dL Albumin 3.0 L (3.5-5.0) g/dL Assessment and Plan Assessment: Triple vessel coronary artery disease status post CABG Hypothyroidism History of GERD Chronic neck and back pain Plan: This is a pleasant 80 years old male status post CABG Continue with aspirin Continue with metoprolol and amiodarone 400 mg per nurse assistant Monitor glucose. Several consultants on the case including cardiology and pulmonary as well as surgery primary team. Labs and medication were reviewed.. Continue same treatment. Continue with symptomatic treatment. Resume home medication. Monitor lytes and vitals. DVT and GI prophylaxis. Further recommendations as per clinical course of the patient DVT prophylaxis: Subcutaneous Lovenox GI Prophylaxis: Ppi Thank you for consulting us
--- NOTE | 2021-12-11 09:54 | P.PN ---
Subjective Progress Note Date: 12/11/21 This is an 80-year-old female patient who was found to have severe triple coronary artery disease. Patient presented for an elective coronary artery bypass graft surgery on 12/07/[address] Moyer. Patient has a past medical history of GERD, chronic back pain, GI bleed, osteoarthritis and diverticular bleed. Patient underwent quadruple coronary artery bypass graft surgery on 12/07/2021 and was transferred to the intensive care unit postoperatively. 12/11/2021 patient is currently postop day 4. Patient is alert and oriented 3 sitting up in chair. Patient remains in the intensive care unit [place] remains in place patient remains on IV Primacor and cleviprex drips. Patient also remains with left and right pleural chest tubes. Patient currently on 2 L nasal cannula incentive spirometer at bedside. Objective - Vital Signs Vital signs: Vital Signs Temp 99.1 F 12/11/21 08:00 Pulse 81 12/11/21 08:30 Resp 61 H 12/11/21 07:30 BP 120/63 12/11/21 08:30 Pulse Ox 94 L 12/11/21 08:30 FiO2 50 12/07/21 23:00 Intake & Output 12/10/21 12/11/21 12/11/21 18:59 06:59 18:59 Intake Total 1259 374.467 178 Output Total 1670 1730 550 Balance -411 -1355.533 -372 Weight 72.1 kg Intake: IV 529 348 58 Calcium Gluconate in NaCl 100 2 gm In Saline 1 100ml. bag @ 100 mls/hr IVPB ONCE ONE Rx#:[id number] Sodium Chloride 0.9% 1, 210 240 40 000 ml @ 20 mls/hr IV . Q24H DEBORAH Rx#:[id number] cardiac output 120 pressure bags 99 108 18 Intake, IV Titration 150 26.467 Amount Clevidipine Butyrate 25 50 26.467 mg In Empty Bag 1 bag @ 1 MG/HR 2 mls/hr IV .Q24H DEBORAH Rx#:[id number] Milrinone-D5w Pmx 20 mg 100 In Dextrose/Water 1 100ml .bag @ 0.1 MCG/KG/MIN 2. 13 mls/hr IV .Q24H DEBORAH Rx #:[id number] Oral 580 120 Output: Chest Tube Drainage 210 230 0 left pleural 90 130 0 right pleural 120 100 0 Urine 1460 1500 550 Other: Voiding Method Indwelling Catheter Bedside Commode Bedside Commode # Voids 0 0 # Bowel Movements 1 ABP, PAP, CO, CI - Last Documented Arterial Blood Pressure 164/84 Pulmonary Artery Pressure 28/14 Cardiac Output 4.3 Cardiac Index 2.7 - Exam Head normocephalic Neck supple Lungs clear to auscultation bilaterally no wheezing or crackles. chest tubes in place Heart regular rate and rhythm S1-S2, no rub or gallop Abdomen is soft nontender nondistended positive bowel sounds no hepatosplenomegaly Extremities no edema Neuro alert and orientated to 3 - Labs CBC & Chem 7: 12/11/21 04:15 12/11/21 04:15 Labs: Abnormal Lab Results - Last 24 Hours (Table) 12/11/21 12/11/21 Range/Units 04:15 04:15 RBC 2.85 L (3.80-5.40) m/uL Hgb 8.6 L (11.4-16.0) gm/dL Hct 26.4 L (34.0-46.0) % Sodium 134 L (137-145) mmol/L Carbon Dioxide 20 L (22-30) mmol/L Calcium 7.5 L (8.4-10.2) mg/dL Assessment and Plan Assessment: 1. Coronary artery disease s/p quadruple coronary artery past graft surgery on 12/07/[address] Moyer 2. History of essential hypertension 3. History of GI bleed 4. History of GERD 5. History of hypothyroidism 6. History of chronic lower back pain Patient will likely need ECF for rehab upon discharge
--- NOTE | 2021-12-11 10:25 | P.PN ---
Subjective Progress Note Date: 12/11/21 Principal diagnosis: Status post bypass surgery. Status post quadruple CABG postoperative day #3 This is an 80-year-old female with known history of hypertension and dyslipidemia patient has been developing dyspnea on exertion and chest discomfort. On 11/28, patient underwent cardiac catheterization, and she was found to have severe triple-vessel coronary artery disease, a right dominance, elevated left ventricular end-diastolic pressure. Patient was referred to surgery. Patient was seen by Samra, today the patient underwent myocardial revascularization. Postoperatively patient was kept on mechanical ventilation, and I was asked to see her on consultation. Presently the patient is in the ICU, she is on assist control rate of 16 volume 350 FiO2 50% and PEEP of 5 patient is on multiple drips including amiodarone 1 mg/m, nitroglycerin, propofol 50 mcg/m, milrinone, 0.2 mcg/kg/m, Cleviprex at 4 mg/h insulin at 2 units per hour. Patient has a cardiac output of 4.9 and cardiac index of 2.9. Chest x-ray showed small left pleural effusion with expected postoperative changes secondary to CABG. Reevaluated today on 12/08/21, patient remains in the ICU, she was extubated yesterday uneventfully. He is on 3 L nasal cannula. Remains on multiple drips including amiodarone at 0.5 mg/m, Cleviprex at 4 mg/h insulin at 5.5 units per hour patient is relatively asymptomatic, doing well, generally weak, able to achieve almost thousand cc with incentive spirometry. Chest x-ray showed chronic left lower lobe atelectasis and pleural effusion, small. No new process is noted. WBC scan 6.7 hemoglobin is 9.8. Basic metabolic profile is normal, renal profile is normal Reevaluated today on 12/09/21, patient remains in the ICU, sitting in her recliner, she is on 3 L nasal cannula, she is on Primacor at 0.1 mcg/kg/m, otherwise the patient is doing great. Patient is in sinus rhythm, hemodynamically stable, she is being weaned off Primacor. Her cardiac output and cardiac index was noted to be on the low side. Hence Primacor was restarted yesterday after stopping it. At times the patient is requiring clevidipine. Her postsurgical pain is controlled. She denies any shortness of breath. Achieving about 1000 mL with incentive spirometry. Continues to have mediastinal left and the right pleural chest tubes and she continues to have this [place] and [place] catheter. WBC count is 4.7 hemoglobin is 8.1 electrolytes are normal except for slightly low sodium of 129. Blood sugar is 111. Seen on 12/10/21, patient is now postoperative day #3. Patient is now on room air, she is still requiring Primacor at 0.1 mcg/kg/m, her IV fluid to KVO, she is on Cleviprex at 2 mg per hour. Chest x-ray is reassuring, no active disease noted. She is in sinus rhythm, bit hypertensive on Cleviprex. Her cardiac index was a bit marginal at 2.3 cardiac output is 3.9, remains on Primacor. Achieving 750 ML in incentive spirometry. Generally weak. Continues to have right internal jugular [place] and [place]. And she has left and right pleural chest tubes. WBC count is 4.9 hemoglobin 8.5. Normal except for slightly low sodium of 129 Progress note dated 12/11/2021. The patient was admitted on December 07. She had surgery on December 07. She had a four-vessel bypass grafting. Currently, she is resting comfortably in room 252. She is on 3 L of oxygen. She's getting saline at 20 mL an hour. She's currently on Cleveprex at 4 mg an hour, and Primacor at 0.1 mcg/kg/m. She is getting between 750-1000 mL on her incentive spirometer. Labs today include a white count 6.2, hemoglobin 8.6, hematocrit 26.4, and platelet count 252,000. Sodium 134, potassium 3.9, chlorides 105, CO2 20, BUN 12, creatinine 0.64. Chest x-ray shows some atelectasis at the left base, and a small left-sided pleural effusion. Objective - Vital Signs Vital signs: Vital Signs Temp 99.1 F 12/11/21 08:00 Pulse 81 12/11/21 08:30 Resp 61 H 12/11/21 07:30 BP 120/63 12/11/21 08:30 Pulse Ox 94 L 12/11/21 08:30 FiO2 50 12/07/21 23:00 Intake & Output 12/10/21 12/11/21 12/11/21 18:59 06:59 18:59 Intake Total 1259 374.467 178 Output Total 1670 1730 550 Balance -411 -1355.533 -372 Weight 72.1 kg Intake: IV 529 348 58 Calcium Gluconate in NaCl 100 2 gm In Saline 1 100ml. bag @ 100 mls/hr IVPB ONCE ONE Rx#:[id number] Sodium Chloride 0.9% 1, 210 240 40 000 ml @ 20 mls/hr IV . Q24H DEBORAH Rx#:[id number] cardiac output 120 pressure bags 99 108 18 Intake, IV Titration 150 26.467 Amount Clevidipine Butyrate 25 50 26.467 mg In Empty Bag 1 bag @ 1 MG/HR 2 mls/hr IV .Q24H DEBORAH Rx#:[id number] Milrinone-D5w Pmx 20 mg 100 In Dextrose/Water 1 100ml .bag @ 0.1 MCG/KG/MIN 2. 13 mls/hr IV .Q24H DEBORAH Rx #:[id number] Oral 580 120 Output: Chest Tube Drainage 210 230 0 left pleural 90 130 0 right pleural 120 100 0 Urine 1460 1500 550 Other: Voiding Method Indwelling Catheter Bedside Commode Bedside Commode # Voids 0 0 # Bowel Movements 1 ABP, PAP, CO, CI - Last Documented Arterial Blood Pressure 164/84 Pulmonary Artery Pressure 28/14 Cardiac Output 4.3 Cardiac Index 2.7 - Exam No acute distress, oriented 3. Currently on 3 L of oxygen. HEENT examination is grossly unremarkable. Neck supple. Full range of motion. No adenopathy thyromegaly or neck vein distention. Cardiovascular examination reveals regular rhythm rate. S1-S2 normal. No S3 or S4. No discernible murmur noted. Heart rate 80 bpm. [place] catheter noted. Lungs reveal diminished bilateral breath sounds. Minimal rhonchi. No wheezes or crackles. 3 L saturation 97%. Abdomen soft bowel sounds are heard. No masses or tenderness. Extremities are intact. No cyanosis clubbing or edema. Skin is without rash or lesion. Neurologic examination is brief but nonfocal. - Labs CBC & Chem 7: 12/11/21 04:15 12/11/21 04:15 Labs: Abnormal Lab Results - Last 24 Hours (Table) 12/11/21 12/11/21 Range/Units 04:15 04:15 RBC 2.85 L (3.80-5.40) m/uL Hgb 8.6 L (11.4-16.0) gm/dL Hct 26.4 L (34.0-46.0) % Sodium 134 L (137-145) mmol/L Carbon Dioxide 20 L (22-30) mmol/L Calcium 7.5 L (8.4-10.2) mg/dL Assessment and Plan Assessment: Postop day #4, status post three-vessel bypass grafting. Benign essential hypertension. Degenerative joint disease. History of GI bleeding. History of GERD. History of hypothyroidism. History of overactive bladder. Chronic low back pain. Remote tobacco use, quit in 2005. Plan: Plan dated 12/11/2021. The patient's labs, x-rays, medications are all reviewed. The patient needs to continue to work on her incentive spirometer. She has some left basilar atelectasis and a left-sided pleural effusion. She remains on Cleveprex at 4 mg per hour, for blood pressure control, and Primacor 0.1 mcg/kg/m, as an inotropic agent. We will continue to follow and make recommendations along the way. She is postop day #4. Prognosis is guarded. Time with Patient: Greater than 30
[2021-12-11 11:09] LABS: Glucose,Whole Blood 110 mg/dL (70-110)
[2021-12-11 16:32] LABS: Glucose,Whole Blood 99 mg/dL (70-110)
[2021-12-11] MEDS: SODIUM CHLORIDE 0.9% 1,000 ML IV SCH (18:15)
[2021-12-11 20:03] LABS: Glucose,Whole Blood 117 mg/dL (70-110)
[2021-12-11] MEDS: NON FORMULARY DRUG (Mirabegron [Myrbetriq] 25 MG Tab.Er.24h) PO SCH (20:18)
[2021-12-11] MEDS: SENNOSIDES-DOCUSATE SODIUM 1 EACH TAB PO SCH (20:19)
[2021-12-11] MEDS: LIDOCAINE 5% PATCH TOPICAL PRN (21:38)
[2021-12-12 04:31] LABS: HCT 25.3 % (34.0-46.0); HGB 8.4 gm/dL (11.4-16.0); MCH 31.1 pg (25.0-35.0); MCHC 33.2 g/dL (31.0-37.0); MCV 93.7 fL (80.0-100.0); Mean Platelet Volume 7.8; Platelet Count 196 k/uL (150-450); RDW 14.3 % (11.5-15.5); WBC 6.5 k/uL (3.8-10.6)
[2021-12-12 05:02] LABS: African American GFR (CKD) >90 (>60 ml/min/1.73 sqM); Anion Gap 8 mmol/L; Blood Urea Nitrogen 15 mg/dL (7-17); Calcium 7.1 mg/dL (8.4-10.2); Carbon Dioxide 21 mmol/L (22-30); Chloride 102 mmol/L (98-107); Glucose 93 mg/dL (74-99); Magnesium 1.9 mg/dL (1.6-2.3); Non-African American GFR(CKD) 80 (>60 ml/min/1.73 sqM); Potassium 3.8 mmol/L (3.5-5.1); Sodium 131 mmol/L (137-145)
[2021-12-12 06:30] LABS: Glucose,Whole Blood 93 mg/dL (70-110)
[2021-12-12] MEDS ORDERED: POTASSIUM CHLORIDE ER 20 MEQ TAB.ER PO SCH (06:30)
[2021-12-12] MEDS: INSULIN ASPART (NovoLOG) 100 UNIT/ML VIAL SQ SCH ×4 (06:33→20:18)
[2021-12-12] MEDS: LEVOTHYROXINE 25 MCG TAB PO SCH (06:33)
[2021-12-12] MEDS: ASCORBIC ACID 500 MG TAB PO SCH ×2 (06:34→17:58)
[2021-12-12] MEDS: PANTOPRAZOLE 40 MG TABLET PO SCH ×2 (06:34→17:58)
[2021-12-12] MEDS: FERROUS SULFATE 325 MG TAB PO SCH ×2 (06:34→17:58)
[2021-12-12] MEDS: hydrALAZINE HCL 20 MG/ML 1 ML VIAL IVP PRN (06:42)
--- NOTE | 2021-12-12 07:01 | P.PN ---
Subjective Progress Note Date: 12/12/21 Principal diagnosis: CAD and status post open heart The patient is an 80-year-old female patient who was experiencing symptoms of chest discomfort and shortness of breath with exertion. She underwent a heart catheterization and that revealed severe triple-vessel coronary artery disease. She underwent CABG. The patient was seen this morning. Overall she seems to be stable from a cardiovascular standpoint of view and she has been maintaining normal sinus mechanism. The pressure continues to be elevated. The dose of losartan was increased yesterday to 100 mg by mouth daily. Beside that she is on dual antiplatelet therapy along with losartan at 100 mg by mouth daily as well as beta rani. The chest x-ray was reviewed and showed left pleural effusion. At this point and in the light of elevated blood pressure which has been persistent and the pleural effusion I will suggest add diuretics to the current medical regimen like either hydrochlorothiazide or Lasix for the management of the hypertension as well as pleural effusion. Objective - Vital Signs Vital signs: Vital Signs Temp 98.1 F 12/12/21 04:00 Pulse 75 12/12/21 06:02 Resp 18 12/12/21 06:02 BP 126/65 12/12/21 06:02 Pulse Ox 95 12/12/21 06:02 FiO2 50 12/07/21 23:00 Intake & Output 12/11/21 12/11/21 12/12/21 06:59 18:59 06:59 Intake Total 688.388 8344.262 626 Output Total 1730 2140 350 Balance -1355.533 -1130.738 276 Weight 72.1 kg 71 kg Intake: IV 348 352 276 Sodium Chloride 0.9% 1, 240 240 240 000 ml @ 20 mls/hr IV . Q24H DEBORAH Rx#:[id number] cardiac output 40 pressure bags 108 72 36 Intake, IV Titration 26.467 57.262 Amount Clevidipine Butyrate 25 26.467 mg In Empty Bag 1 bag @ 1 MG/HR 2 mls/hr IV .Q24H DEBORAH Rx#:[id number] Milrinone-D5w Pmx 20 mg 57.262 In Dextrose/Water 1 100ml .bag @ 0.1 MCG/KG/MIN 2. 13 mls/hr IV .Q24H DEBORAH Rx #:[id number] Oral 600 350 Output: Chest Tube Drainage 230 40 left pleural 130 20 right pleural 100 20 Urine 1500 2100 350 Other: Voiding Method Bedside Commode Bedside Commode Bedside Commode # Voids 0 # Bowel Movements 1 ABP, PAP, CO, CI - Last Documented Arterial Blood Pressure 148/47 Pulmonary Artery Pressure 20/4 Cardiac Output 3.4 Cardiac Index 2 - Constitutional General appearance: Present: no acute distress - Respiratory Respiratory: bilateral: diminished - Cardiovascular Rhythm: regular - Labs CBC & Chem 7: 12/12/21 04:00 12/12/21 04:00 Labs: Abnormal Lab Results - Last 24 Hours (Table) 12/11/21 12/12/21 12/12/21 Range/Units 20:01 04:00 04:00 RBC 2.70 L (3.80-5.40) m/uL Hgb 8.4 L (11.4-16.0) gm/dL Hct 25.3 L (34.0-46.0) % Sodium 131 L (137-145) mmol/L Carbon Dioxide 21 L (22-30) mmol/L POC Glucose (mg/dL) 117 H (70-110) mg/dL Calcium 7.1 L (8.4-10.2) mg/dL Assessment and Plan Assessment: Assessment #1 severe triple-vessel CAD and status post CABG #2 mild cardiomyopathy #3 hypertension #4 dyslipidemia Plan #1 suggest add either thiazide diuretics or loop diuretics to the current medical regimen #2 continue dual antiplatelet therapy #3 continue statin #4 continue beta rani #5 follow-up with the patient
[2021-12-12] MEDS: IPRATROPIUM-ALBUTEROL 3 ML NEB INHALATION SCH ×4 (07:20→19:28)
[2021-12-12] MEDS ORDERED: CALCIUM GLUCONATE IN NACL 2 GM in SALINE 1 100ML.BAG IVPB ONE (07:31)
[2021-12-12] MEDS ORDERED: MAGNESIUM SULFATE-D5W PMX 1 GM in DEXTROSE/WATER 1 100ML.BAG IVPB ONE (07:31)
[2021-12-12] MEDS: ACETAMINOPHEN TAB 500 MG TAB PO PRN ×2 (07:59→17:58)
[2021-12-12] MEDS: ASPIRIN 325 MG TAB PO SCH (07:59)
[2021-12-12] MEDS: METOPROLOL TARTRATE 50 MG TAB PO SCH ×2 (07:59→20:17)
[2021-12-12] MEDS: LOSARTAN 50 MG TAB PO SCH (07:59)
[2021-12-12] MEDS: CLOPIDOGREL 75 MG TAB PO SCH (08:00)
[2021-12-12] MEDS: AMIODARONE 200 MG TAB PO SCH ×2 (08:00→20:16)
[2021-12-12] MEDS: ATORVASTATIN 40 MG TAB PO SCH (08:00)
[2021-12-12] MEDS: MULTIVITAMINS, THERA 1 EACH TAB PO SCH (08:00)
[2021-12-12] MEDS: CHOLECALCIFEROL 25 MCG (1000 IU) TABLET PO SCH (08:00)
[2021-12-12] MEDS ORDERED: POTASSIUM BICARBONATE/CIT AC 20 MEQ TABLET.EFF PO ONE (08:07)
[2021-12-12] MEDS ORDERED: FUROSEMIDE 10 MG/ML 2 ML VIAL IV ONE (08:07)
[2021-12-12] MEDS: KETOROLAC 15 MG/ML 1 ML VIAL IVP SCH ×4 (08:10→23:36)
--- NOTE | 2021-12-12 08:14 | XR ---
EXAMINATION TYPE: XR chest 2V DATE OF EXAM: 12/12/2021 COMPARISON: 12/11/2021 HISTORY: post cardiac surgery TECHNIQUE: Frontal and lateral views of the chest are obtained. FINDINGS: [place] catheter has been removed. Changes of median sternotomy and CABG. Left atrial clip is in pl shwetha. Scattered linear areas of atelectasis remain stable. No evidence for pneumothorax. Heart size is stable. Mediastinal structures are stable and grossly unremarkable. No evidence for hilar prominence. Degenerative changes dorsal spine. IMPRESSION: 1. Scattered areas of linear atelectasis.
--- NOTE | 2021-12-12 09:13 | P.PN ---
Subjective Progress Note Date: 12/12/21 Principal diagnosis: Triple-vessel diffuse calcific coronary artery disease, preserved systolic function. Previous medical history of hypertension, hyperlipidemia, esophageal stricture with serial dilatation, previous tobacco dependence, peripheral arterial disease POD #5 quadruple coronary artery bypass grafting using the left internal mammary artery to the left anterior descending artery, reverse saphenous vein graft from the aorta to the first obtuse marginal artery, reverse saphenous vein graft from the previous vein graft and an anastomosis to the diagonal artery, reverse saphenous vein graft from the aorta to the posterior descending artery, exclusion of the left atrial appendage using a 35 mm AtriClip, endoscopic harvesting of the left greater saphenous vein, intraoperative graft flow measurements using the RoboteXstim system, intraoperative transesophageal echo cardiogram and epi-aortic scanning Postoperative acute blood loss anemia, expected given hemodilution and cardiopulmonary bypass pump The patient was seen and examined this morning sitting up in a recliner in the intensive care unit in no acute distress. Remains in sinus rhythm, remains a bit hypertensive. Patient does complain of leg pain, has not had any pain medication and quite a while. Denies shortness of breath. Currently on 2 L nasal cannula, achieving 1000 mL on her incentive spirometer. Patient continues to have some generalized weakness, minimal ambulation with staff. Patient lives alone with no assistance, safety concerns with medical debility noted, likely will need rehab at discharge. No other new concerns. Objective - Vital Signs Vital signs: Vital Signs Temp 97.9 F 12/12/21 08:00 Pulse 85 12/12/21 07:33 Resp 22 12/12/21 08:00 BP 144/72 12/12/21 08:00 Pulse Ox 95 12/12/21 08:00 FiO2 50 12/07/21 23:00 Intake & Output 12/11/21 12/12/21 12/12/21 18:59 06:59 18:59 Intake Total 1009.262 626 226 Output Total 2140 350 300 Balance -1130.738 276 -74 Weight 71 kg Intake: IV 352 276 126 Magnesium Sulfate-D5w Pmx 100 1 gm In Dextrose/Water 1 100ml.bag @ 100 mls/hr IVPB Q1H DEBORAH Rx#: [id number] Sodium Chloride 0.9% 1, 240 240 20 000 ml @ 20 mls/hr IV . Q24H DEBORAH Rx#:[id number] cardiac output 40 pressure bags 72 36 6 Intake, IV Titration 57.262 Amount Milrinone-D5w Pmx 20 mg 57.262 In Dextrose/Water 1 100ml .bag @ 0.1 MCG/KG/MIN 2. 13 mls/hr IV .Q24H DEBORAH Rx #:[id number] Oral 600 350 100 Output: Chest Tube Drainage 40 left pleural 20 right pleural 20 Urine 2100 350 300 Other: Voiding Method Bedside Commode Bedside Commode # Bowel Movements 1 ABP, PAP, CO, CI - Last Documented Arterial Blood Pressure 115/53 Pulmonary Artery Pressure 20/4 Cardiac Output 3.4 Cardiac Index 2 - Exam CONSTITUTIONAL: Appears comfortable, cooperative, no acute distress RESPIRATORY: Lungs sounds diminished bilaterally. Respirations even, nonlabored. Currently on 2 L nasal cannula with oxygen saturation 95%. Able to achieve 1000 mL on incentive spirometry. Strong cough. CARDIOVASCULAR: S1, S2 present. Regular rate and rhythm, sinus rhythm on telemetry. Sternum stable. Palpable peripheral pulses bilaterally. No edema present. No calf pain or tenderness noted. Heart hugger in place with patient demonstrating appropriate use. Antiembolism stockings, SCDs present. GASTROINTESTINAL: Abdomen soft, nontender, nondistended, obese. Active bowel sounds present 4 quadrants. Tolerating diet. Positive bowel movement GENITOURINARY: Continues to void. Output 2450 mL in the last 24 hours INTEGUMENTARY: Skin is warm and dry with evidence of good perfusion. Anterior chest incision well approximated and covered with dry intact dressing. Left lower extremity EVH site well approximated without redness NEUROLOGIC: Cranial nerves II through XII intact MUSKULOSKELETAL: Able to move all extremities, strength equal bilaterally, generalized weakness present PSYCHIATRIC: Alert and oriented to person place and time, appropriate affect, intact judgment and insight INVASIVE LINES AND TUBES: A/V epicardial pacemaker wires present, grounded. - Allied health notes Allied health notes reviewed: nursing - Labs CBC & Chem 7: 12/12/21 04:00 12/12/21 04:00 Labs: Abnormal Lab Results - Last 24 Hours (Table) 12/11/21 12/12/21 12/12/21 Range/Units 20:01 04:00 04:00 RBC 2.70 L (3.80-5.40) m/uL Hgb 8.4 L (11.4-16.0) gm/dL Hct 25.3 L (34.0-46.0) % Sodium 131 L (137-145) mmol/L Carbon Dioxide 21 L (22-30) mmol/L POC Glucose (mg/dL) 117 H (70-110) mg/dL Calcium 7.1 L (8.4-10.2) mg/dL - Imaging and Cardiology Chest x-ray: report reviewed, image reviewed Assessment and Plan Assessment: 1. Triple-vessel diffuse calcific coronary artery disease, status post four- vessel CABG 2. Preserved systolic function 3. Hypertension 4. Hyperlipidemia, cholesterol 269, LDL 171, triglycerides 245 5. Esophageal stricture with serial dilatation 6. Previous tobacco dependence, preoperative FEV1 77% of predicted 7. Peripheral arterial disease, right lower extremity TORITO 0.83 8. Postoperative acute blood loss anemia, expected 9. Medical debility Plan: 1. Continue to maximize medical therapy with aspirin, statin, Plavix, beta rani therapy. Will increase beta rani therapy as tolerated 2. Continue Cozaar for afterload reduction 3. Continue amiodarone for A. fib prophylaxis 4. Wean oxygen as tolerated. Encourage incentive spirometry was 10 times every hour while awake. Bronchodilators per pulmonology 5. Increase activity as tolerated. PT/OT/cardiac rehab consulted. Patient needs much encouragement 6. Will monitor daily labs and x-rays. Electrolyte replacement per protocol. IV lasix 20 mg with oral potassium ordered 7. GI/DVT prophylaxis 8. Pain control per medication regimen. Avoid narcotics 9. Insulin management per primary care service. Patient is not diabetic, preoperative hemoglobin A1c 5.8% 10. Strict accurate intake and output. Daily weights. Patient to shower daily 11. Consult placed to Dr. Rogers for possible inpatient rehab at discharge as patient lives alone with no family support, week and unsafe to return home, needs daily physician assessment for medication adjustment 12. More recommendations to follow
[2021-12-12] MEDS: ENOXAPARIN 40 MG/0.4 ML SYRINGE SQ SCH (09:30)
--- NOTE | 2021-12-12 10:19 | P.PN ---
Subjective Progress Note Date: 12/12/21 Principal diagnosis: Status post bypass surgery. Status post quadruple CABG postoperative day #3 This is an 80-year-old female with known history of hypertension and dyslipidemia patient has been developing dyspnea on exertion and chest discomfort. On 11/28, patient underwent cardiac catheterization, and she was found to have severe triple-vessel coronary artery disease, a right dominance, elevated left ventricular end-diastolic pressure. Patient was referred to surgery. Patient was seen by Samra, today the patient underwent myocardial revascularization. Postoperatively patient was kept on mechanical ventilation, and I was asked to see her on consultation. Presently the patient is in the ICU, she is on assist control rate of 16 volume 350 FiO2 50% and PEEP of 5 patient is on multiple drips including amiodarone 1 mg/m, nitroglycerin, propofol 50 mcg/m, milrinone, 0.2 mcg/kg/m, Cleviprex at 4 mg/h insulin at 2 units per hour. Patient has a cardiac output of 4.9 and cardiac index of 2.9. Chest x-ray showed small left pleural effusion with expected postoperative changes secondary to CABG. Reevaluated today on 12/08/21, patient remains in the ICU, she was extubated yesterday uneventfully. He is on 3 L nasal cannula. Remains on multiple drips including amiodarone at 0.5 mg/m, Cleviprex at 4 mg/h insulin at 5.5 units per hour patient is relatively asymptomatic, doing well, generally weak, able to achieve almost thousand cc with incentive spirometry. Chest x-ray showed chronic left lower lobe atelectasis and pleural effusion, small. No new process is noted. WBC scan 6.7 hemoglobin is 9.8. Basic metabolic profile is normal, renal profile is normal Reevaluated today on 12/09/21, patient remains in the ICU, sitting in her recliner, she is on 3 L nasal cannula, she is on Primacor at 0.1 mcg/kg/m, otherwise the patient is doing great. Patient is in sinus rhythm, hemodynamically stable, she is being weaned off Primacor. Her cardiac output and cardiac index was noted to be on the low side. Hence Primacor was restarted yesterday after stopping it. At times the patient is requiring clevidipine. Her postsurgical pain is controlled. She denies any shortness of breath. Achieving about 1000 mL with incentive spirometry. Continues to have mediastinal left and the right pleural chest tubes and she continues to have this Cordis and [place] catheter. WBC count is 4.7 hemoglobin is 8.1 electrolytes are normal except for slightly low sodium of 129. Blood sugar is 111. Seen on 12/10/21, patient is now postoperative day #3. Patient is now on room air, she is still requiring Primacor at 0.1 mcg/kg/m, her IV fluid to KVO, she is on Cleviprex at 2 mg per hour. Chest x-ray is reassuring, no active disease noted. She is in sinus rhythm, bit hypertensive on Cleviprex. Her cardiac index was a bit marginal at 2.3 cardiac output is 3.9, remains on Primacor. Achieving 750 ML in incentive spirometry. Generally weak. Continues to have right internal jugular [place] and Cordis. And she has left and right pleural chest tubes. WBC count is 4.9 hemoglobin 8.5. Normal except for slightly low sodium of 129 Progress note dated 12/11/2021. The patient was admitted on December 07. She had surgery on December 07. She had a four-vessel bypass grafting. Currently, she is resting comfortably in room 252. She is on 3 L of oxygen. She's getting saline at 20 mL an hour. She's currently on Cleveprex at 4 mg an hour, and Primacor at 0.1 mcg/kg/m. She is getting between 750-1000 mL on her incentive spirometer. Labs today include a white count 6.2, hemoglobin 8.6, hematocrit 26.4, and platelet count 252,000. Sodium 134, potassium 3.9, chlorides 105, CO2 20, BUN 12, creatinine 0.64. Chest x-ray shows some atelectasis at the left base, and a small left-sided pleural effusion. Progress note dated 12/12/2021. This is a 81-year-old female who was admitted on December 07. She had surgery on December 07. She had a four-vessel bypass grafting. She is resting comfortably in room 252. Currently, she is on 2 L of oxygen, and getting saline at 20 mL an hour. Yesterday, the patient was on Cleveprex, and Primacor, they have been weaned off. She still is struggling with her incentive spirometer a bit. We encourage it to be used on a hourly basis. We also recommend deep breathing, coughing, and clearing of secretions. Currently laboratory data includes a white count of 6.5, hemoglobin 8.4, hematocrit 25.3, and a platelet count of 196,000. Sodium 131, potassium 3.8, chlorides 102, CO2 21, BUN 15, creatinine 0.7. Chest x-ray shows bibasilar atelectasis. Objective - Vital Signs Vital signs: Vital Signs Temp 97.9 F 12/12/21 08:00 Pulse 81 12/12/21 09:00 Resp 17 12/12/21 09:00 BP 116/59 12/12/21 09:00 Pulse Ox 97 12/12/21 09:00 FiO2 50 12/07/21 23:00 Intake & Output 12/11/21 12/12/21 12/12/21 18:59 06:59 18:59 Intake Total 1009.262 626 249 Output Total 2140 350 600 Balance -1130.738 276 -351 Weight 71 kg Intake: IV 352 276 149 Magnesium Sulfate-D5w Pmx 100 1 gm In Dextrose/Water 1 100ml.bag @ 100 mls/hr IVPB Q1H [facility] Rx#: [id number] Sodium Chloride 0.9% 1, 240 240 40 000 ml @ 20 mls/hr IV . Q24H [facility] Rx#:[id number] cardiac output 40 pressure bags 72 36 9 Intake, IV Titration 57.262 Amount Milrinone-D5w Pmx 20 mg 57.262 In Dextrose/Water 1 100ml .bag @ 0.1 MCG/KG/MIN 2. 13 mls/hr IV .Q24H [facility] Rx #:[id number] Oral 600 350 100 Output: Chest Tube Drainage 40 left pleural 20 right pleural 20 Urine 2100 350 600 Other: Voiding Method Bedside Commode Bedside Commode Bedside Commode # Bowel Movements 1 ABP, PAP, CO, CI - Last Documented Arterial Blood Pressure 118/47 Pulmonary Artery Pressure 20/4 Cardiac Output 3.4 Cardiac Index 2 - Exam No acute distress, oriented 3. Currently on 2 L of oxygen. No respiratory distress. No use of accessory muscles. No conversational dyspnea. HEENT examination is grossly unremarkable. Neck supple. Full range of motion. No adenopathy thyromegaly or neck vein distention. Cardiovascular examination reveals regular rhythm rate. S1-S2 normal. No S3 or S4. No discernible murmur noted. Heart rate 81 bpm. Lungs reveal diminished bilateral breath sounds. Minimal rhonchi. No wheezes or crackles. 2 L saturation 97%. Abdomen soft bowel sounds are heard. No masses or tenderness. Extremities are intact. No cyanosis clubbing or edema. Skin is without rash or lesion. Neurologic examination is brief but nonfocal. - Labs CBC & Chem 7: 12/12/21 04:00 12/12/21 04:00 Labs: Abnormal Lab Results - Last 24 Hours (Table) 12/11/21 12/12/21 12/12/21 Range/Units 20:01 04:00 04:00 RBC 2.70 L (3.80-5.40) m/uL Hgb 8.4 L (11.4-16.0) gm/dL Hct 25.3 L (34.0-46.0) % Sodium 131 L (137-145) mmol/L Carbon Dioxide 21 L (22-30) mmol/L POC Glucose (mg/dL) 117 H (70-110) mg/dL Calcium 7.1 L (8.4-10.2) mg/dL Assessment and Plan Assessment: Postop day #5, status post three-vessel bypass grafting. Routine postoperative ventilator management. Benign essential hypertension. Degenerative joint disease. History of GI bleeding. History of GERD. History of hypothyroidism. History of overactive bladder. Chronic low back pain. Remote tobacco use, quit in 2005. Plan: Plan dated 12/11/2021. The patient's labs, x-rays, medications are all reviewed. The patient needs to continue to work on her incentive spirometer. She has some left basilar atelectasis and a left-sided pleural effusion. She remains on Cleveprex at 4 mg per hour, for blood pressure control, and Primacor 0.1 mcg/kg/m, as an inotropic agent. We will continue to follow and make recommendations along the way. She is postop day #4. Prognosis is guarded. Plan dated 12/12/2021. Labs, x-rays, and medications are reviewed. Patient remains on 2 L. She's getting saline at 20 mL an hour. Cleveprex and Primacor have been weaned off. Additional recommendations and suggestions are forthcoming. We went the patient to continue using incentive spirometer, every hour while awake. We also rec ommend deep breathing, coughing, clearing of secretions. Prognosis is guarded. We'll continue to follow and make recommendations along the way. Time with Patient: Less than 30
[2021-12-12] MEDS: MUPIROCIN 2% OINT 22 GM TUBE NASAL SCH ×2 (10:30→20:16)
--- NOTE | 2021-12-12 10:46 | P.CONS ---
History of Present Illness - Chief Complaint Cardiac debility - History of Present Illness I had the opportunity to see patient for inpatient rehab consultation with regard to cardiac debility. Patient's 81-year-old female admitted to [facility] December 07 with recently diagnosed coronary artery disease, elective CABG four- vessel DrDebra is very. Seen in consultation by Dr. rucker, Dr. herrera and cardiology. Chest x-rays followed and notes scattered atelectasis. PT reports moderate assistance to sit and stand. Fatigues. OT reports supervision for feeding, moderate assistance for grooming and upper dressing, total assistance for lower dressing, maximal assistance for bathing and toileting and minimal assistance functional ability transfers. Previous functional history as elicited from patient: 81-year-old right-handed white female who is lives and 2 floor home alone. Abdomen first-floor but laundry and second floor. Patient independent with cooking, laundry, driving, standing shower and gait without device. PCP is Dr. tono king. Doesn't smoke or drink currently. Review of Systems Review of systems: ENT: Denies sneezes or discharge. Eyes: Denies discharge or photophobia. Cardiac: Denies chest pain or palpitation. Pulmonary: Shortness of breath and hiccups. Breast: Denies discharge or lumps. Gastrointestinal: Denies nausea, emesis, constipation, diarrhea. Genitourinary: Denies discharge or frequency. Musculoskeletal: Denies muscle or bone aches. Neurologic: Generalized weakness. Endocrine: Denies shakes or sweats. Oncology: Denies cancers. Dermatologic: Denies rash, itching, pruritus. ALLERGY/immunology: Denies sneezes, rashes. Past Medical History Past Medical History: GERD/Reflux, GI Bleed, Hyperlipidemia, Hypertension, Osteoarthritis (OA), Thyroid Disorder Additional Past Medical History / Comment(s): increased fatigue and SOB w/ activity,HX OF DIVERTICULAR BLEED, states had 5 transfusions, bleed "caused by pain medication use." NOT ABLE TO FULLY BEND LEFT KNEE. Urinary frequency, Osteoporosis. States "scar tissue with implants.", Hiatal Hernia., states terrible heartburn & burning pain when she inhales cold air. History of Any Multi-Drug Resistant Organisms: None Reported Past Surgical History: Back Surgery, Section, Heart Catheterization, Hysterectomy, Joint Replacement, Orthopedic Surgery, Tonsillectomy Additional Past Surgical History / Comment(s): CERVICAL FUSION FROM C3-7. Bilateral KNEE REPLACEMENTS WITH (3 lt total knee surgeries,1 rt knee) . EGD. Bilateral cataract surgery. Colonoscopy. Has had epidurals for pain, and "nerve burning." Past Anesthesia/Blood Transfusion Reactions: No Reported Reaction Additional Past Anesthesia/Blood Transfusion Reaction / Comm: No problem with transfusions. Smoking Status: Former smoker - Past Family History Mother Additional Family Medical History / Comment(s): Cerebral hemorrhage at age 51. Father Family Medical History: COPD Additional Family Medical History / Comment(s): Emphysema. Medications and Allergies Home Medications Medication Instructions Recorded Confirmed Type Cholecalciferol [Vitamin D3 (25 50 mcg PO DAILY 05/03/15 12/07/21 History Mcg = 1000 Iu)] Levothyroxine Sodium 25 mcg PO DAILY 10/01/19 12/07/21 History Metoprolol Succinate (ER) [Toprol 25 mg PO DAILY 10/01/19 12/07/21 History XL] Aspirin [Adult Low Dose Aspirin EC] 81 mg PO DAILY 08/11/20 12/07/21 History Ibuprofen [Motrin Ib] 200 - 400 mg PO Q8H PRN 02/09/21 12/07/21 History Pantoprazole [Protonix] 40 mg PO BID 06/22/21 12/07/21 History Sucralfate [Carafate] 1 gm PO QID 09/08/21 12/07/21 History Lidocaine 5% Patch [Lidoderm 5% 1 patch TOPICAL DAILY PRN 30 Days 09/11/21 12/07/21 Rx Patch] #30 patch Cannabidiol (Cbd) [Epidiolex] 1 dose TOPICAL DAILY PRN 11/27/21 12/07/21 History Mirabegron [Myrbetriq] 25 mg PO DAILY 11/27/21 12/07/21 History Multivit-Min/Iron/Folic/Lutein 1 each PO DAILY 11/27/21 12/07/21 History [Centrum Silver Women Tablet] Isosorbide Mononitrate ER [Imdur] 30 mg PO DAILY #90 tab 11/28/21 12/07/21 Rx Mupirocin 2% Oint [Bactroban 2% 1 applic NASAL BID 5 Days #22 gm 11/28/21 12/07/21 Rx Oint] Allergies Allergy/AdvReac Type Severity Reaction Status Date / Time nickel Allergy developes Verified 12/07/21 06:08 scar tissue Sulfa (Sulfonamide Allergy Rash/Hives Verified 12/07/21 06:08 Antibiotics) codeine AdvReac Nausea & Verified 12/07/21 06:08 Vomiting Physical Exam Vitals: Vital Signs Temp Pulse Resp BP Pulse Ox 12/12/21 10:00 70 97 12/12/21 09:00 81 17 116/59 97 12/12/21 08:00 97.9 F 22 144/72 95 12/12/21 07:33 85 12/12/21 07:20 80 12/12/21 07:00 80 160/83 74 L 12/12/21 06:45 75 160/83 12/12/21 06:30 75 145/81 97 12/12/21 06:15 76 147/80 95 12/12/21 06:02 75 18 126/65 95 12/12/21 05:00 73 18 95 12/12/21 04:00 98.1 F 71 15 138/79 97 12/12/21 03:00 70 23 98/74 98 12/12/21 02:00 69 16 126/65 96 12/12/21 01:30 68 12 99 12/12/21 01:00 67 18 110/68 98 12/12/21 00:30 66 16 98 12/12/21 00:27 66 16 97 12/12/21 00:00 97.8 F 65 19 120/63 96 12/11/21 23:30 64 97 12/11/21 23:00 64 20 113/66 98 12/11/21 22:30 62 23 97 12/11/21 22:00 62 18 97/58 96 12/11/21 21:30 64 16 114/66 97 12/11/21 21:00 70 18 97 12/11/21 20:30 71 16 129/87 96 12/11/21 20:00 98.0 F 83 18 125/61 94 L 12/11/21 19:40 84 12/11/21 19:30 78 25 H 96 12/11/21 19:00 76 108/61 96 12/11/21 18:30 78 108/61 96 12/11/21 18:00 79 24 103/56 96 12/11/21 17:30 80 104/63 95 12/11/21 17:00 77 119/71 97 12/11/21 16:30 127/65 96 12/11/21 16:00 77 123/65 96 12/11/21 15:38 72 12/11/21 15:30 71 116/62 98 12/11/21 15:29 71 12/11/21 15:00 103/59 97 12/11/21 14:30 100/61 96 12/11/21 14:00 73 120/67 97 12/11/21 13:30 73 57 H 118/70 97 12/11/21 13:00 71 34 H 118/72 96 12/11/21 12:30 73 112/60 95 12/11/21 12:00 98.6 F 72 121/70 98 12/11/21 11:30 72 122/72 97 12/11/21 11:06 74 12/11/21 11:00 70 111/63 12/11/21 10:54 70 Intake and Output 12/11/21 12/12/21 12/12/21 22:59 06:59 14:59 Intake Total 631 184 599 Output Total 648 992 9849 Balance 377 -408 -951 Intake: IV 161 184 249 Calcium Gluconate in NaCl 100 2 gm In Saline 1 100ml. bag @ 50 mls/hr IVPB ONCE ONE Rx#:[id number] Magnesium Sulfate-D5w Pmx 100 1 gm In Dextrose/Water 1 100ml.bag @ 100 mls/hr IVPB Q1H [facility] Rx#: [id number] Sodium Chloride 0.9% 1, 140 160 40 000 ml @ 20 mls/hr IV . Q24H [facility] Rx#:[id number] pressure bags 21 24 9 Oral 470 350 Output: Urine 284 290 1483 Other: Voiding Method Bedside Commode Bedside Commode Bedside Commode # Bowel Movements 1 Weight 71 kg ABP, PAP, CO, CI - Last 8 Hours Arterial Blood Pressure 112/47 Arterial Blood Pressure 118/47 Arterial Blood Pressure 115/53 Arterial Blood Pressure 137/49 Arterial Blood Pressure 161/85 Arterial Blood Pressure 159/61 Arterial Blood Pressure 163/67 Arterial Blood Pressure 148/47 Arterial Blood Pressure 143/61 Arterial Blood Pressure 158/67 Arterial Blood Pressure 141/67 Cardiac Output 3.4 Cardiac Output 3.4 Cardiac Output 3.4 Cardiac Output 3.4 Cardiac Output 3.4 Cardiac Output 3.4 Cardiac Output 3.4 Cardiac Output 3.4 Cardiac Output 3.4 Cardiac Output 3.4 Cardiac Index 2 Cardiac Index 2 Cardiac Index 2 Cardiac Index 2 Cardiac Index 2 Cardiac Index 2 Cardiac Index 2 Cardiac Index 2 Cardiac Index 2 Cardiac Index 2 Skin: Atrophic, intact. General: Medium build and comfortable appearance. Head: Normocephalic, atraumatic. Eyes: Symmetric. Pupils equal round. Ears: Symmetric. Hearing within normal limits. Mouth: Clear. Neck: Supple. Carotid without bruit. Cardiac: Regular rate and rhythm. Sternotomy scar clean and dressed. Heart hugger. Lungs: Clear anteriorly and posteriorly. Abdomen: Soft active nontender. Overweight. Extremities: Normal tone. Neurological: Mental status: Alert, cooperative, pleasant. Cranial nerves: Symmetric facial tone and trapezius. Motor: Active movement all 4 limbs. Arms at least antigravity in legs at best antigravity. Sensation: Intact throughout. DTRs: Symmetric and equal throughout. Mobility: Did not attempt to sit or stand on my own. Results CBC & Chem 7: 12/12/21 04:00 12/12/21 04:00 Labs: Abnormal Lab Results - Last 24 Hours (Table) 12/11/21 12/12/21 12/12/21 Range/Units 20:01 04:00 04:00 RBC 2.70 L (3.80-5.40) m/uL Hgb 8.4 L (11.4-16.0) gm/dL Hct 25.3 L (34.0-46.0) % Sodium 131 L (137-145) mmol/L Carbon Dioxide 21 L (22-30) mmol/L POC Glucose (mg/dL) 117 H (70-110) mg/dL Calcium 7.1 L (8.4-10.2) mg/dL Assessment and Plan Plan: Impression: Cardiac debility due to coronary disease with recent CABG four- vessel. I Comments and plan: At this time PT and OT are ongoing. Some endurance issues noted and not ready for inpatient rehab yet. Have discussed possible inpatient rehab for benefit with patient. She seemed confused and she remains had had a similar but subacute experience 2-3 years ago.
[2021-12-12 11:55] LABS: Glucose,Whole Blood 102 mg/dL (70-110)
[2021-12-12 16:55] LABS: Glucose,Whole Blood 89 mg/dL (70-110)
[2021-12-12 20:12] LABS: Glucose,Whole Blood 112 mg/dL (70-110)
[2021-12-12] MEDS: NON FORMULARY DRUG (Mirabegron [Myrbetriq] 25 MG Tab.Er.24h) PO SCH (20:16)
[2021-12-12] MEDS: SENNOSIDES-DOCUSATE SODIUM 1 EACH TAB PO SCH (20:16)
[2021-12-13] MEDS: ACETAMINOPHEN TAB 500 MG TAB PO PRN ×3 (01:33→17:40)
[2021-12-13 03:52] LABS: HCT 27.8 % (34.0-46.0); Hypochromasia Slight; MCH 30.7 pg (25.0-35.0); MCHC 32.3 g/dL (31.0-37.0); Mean Platelet Volume 7.7; Platelet Count 242 k/uL (150-450); RBC 2.92 m/uL (3.80-5.40); RDW 14.4 % (11.5-15.5)
[2021-12-13 04:05] LABS: Calcium 7.8 mg/dL (8.4-10.2); Potassium 4.4 mmol/L (3.5-5.1)
[2021-12-13] MEDS: LIDOCAINE 5% PATCH TOPICAL PRN (05:13)
[2021-12-13] MEDS: hydrALAZINE HCL 20 MG/ML 1 ML VIAL IVP PRN (05:15)
[2021-12-13 06:22] LABS: Glucose,Whole Blood 99 mg/dL (70-110)
[2021-12-13] MEDS: KETOROLAC 15 MG/ML 1 ML VIAL IVP SCH ×3 (06:23→18:41)
[2021-12-13] MEDS: ASCORBIC ACID 500 MG TAB PO SCH ×2 (06:24→17:40)
[2021-12-13] MEDS: FERROUS SULFATE 325 MG TAB PO SCH ×2 (06:24→17:40)
[2021-12-13] MEDS: LEVOTHYROXINE 25 MCG TAB PO SCH (06:24)
[2021-12-13] MEDS: PANTOPRAZOLE 40 MG TABLET PO SCH ×2 (06:24→17:40)
[2021-12-13] MEDS: INSULIN ASPART (NovoLOG) 100 UNIT/ML VIAL SQ SCH ×4 (06:24→20:36)
--- NOTE | 2021-12-13 06:30 | P.PN ---
Subjective Progress Note Date: 12/13/21 Principal diagnosis: CAD and status post open heart The patient is an 80-year-old female patient who was experiencing symptoms of chest discomfort and shortness of breath with exertion. She underwent a heart catheterization and that revealed severe triple-vessel coronary artery disease. She underwent CABG. The patient was seen this morning. She continues to be stable from a cardiac vascular standpoint of view. She has been maintaining normal sinus mechanism. The pressure has been under better control on the current medical regimen. The chest x-ray was reviewed and showed small left pleural effusion definitely has improved compared to before From a cardiovascular standpoint of view I would suggest continue the current medical regimen. The patient can be transferred to [facility]. Objective - Vital Signs Vital signs: Vital Signs Temp 97.9 F 12/13/21 04:00 Pulse 74 12/13/21 05:00 Resp 18 12/13/21 05:00 BP 148/74 12/13/21 05:00 Pulse Ox 95 12/13/21 04:00 FiO2 50 12/07/21 23:00 Intake & Output 12/12/21 12/12/21 12/13/21 06:59 18:59 06:59 Intake Total 626 1109 Output Total 350 1500 600 Balance 276 -391 -600 Weight 71 kg 71.8 kg Intake: IV 276 309 Calcium Gluconate in NaCl 100 2 gm In Saline 1 100ml. bag @ 50 mls/hr IVPB ONCE ONE Rx#:[id number] Magnesium Sulfate-D5w Pmx 100 1 gm In Dextrose/Water 1 100ml.bag @ 100 mls/hr IVPB Q1H [facility] Rx#: [id number] Sodium Chloride 0.9% 1, 240 100 000 ml @ 20 mls/hr IV . Q24H [facility] Rx#:[id number] pressure bags 36 9 Oral 350 800 Output: Urine 350 1500 600 Other: Voiding Method Bedside Commode Bedside Commode Bedside Commode # Bowel Movements 1 ABP, PAP, CO, CI - Last Documented Arterial Blood Pressure 112/47 Pulmonary Artery Pressure 20/4 Cardiac Output 3.4 Cardiac Index 2 - Constitutional General appearance: Present: no acute distress - Respiratory Respiratory: bilateral: diminished - Cardiovascular Rhythm: regular Heart sounds: normal: S1, S2 - Labs CBC & Chem 7: 12/13/21 03:29 12/13/21 03:29 Labs: Abnormal Lab Results - Last 24 Hours (Table) 12/12/21 12/13/21 12/13/21 Range/Units 20:10 03:29 03:29 RBC 2.92 L (3.80-5.40) m/uL Hgb 9.0 L (11.4-16.0) gm/dL Hct 27.8 L (34.0-46.0) % Sodium 132 L (137-145) mmol/L Glucose 103 H (74-99) mg/dL POC Glucose (mg/dL) 112 H (70-110) mg/dL Calcium 7.8 L (8.4-10.2) mg/dL Assessment and Plan Assessment: Assessment #1 severe triple-vessel CAD and status post CABG #2 mild cardiomyopathy #3 hypertension #4 dyslipidemia Plan #1 the patient overall is stable from a cardiac vascular standpoint of view #2 continue dual antiplatelet therapy #3 continue statin #4 continue beta rani #5 follow-up with the patient
[2021-12-13] MEDS ORDERED: FUROSEMIDE 10 MG/ML 2 ML VIAL IV ONE (07:06)
--- NOTE | 2021-12-13 07:21 | P.PN ---
Subjective Progress Note Date: 12/13/21 Principal diagnosis: Triple-vessel diffuse calcific coronary artery disease, preserved systolic function. Previous medical history of hypertension, hyperlipidemia, esophageal stricture with serial dilatation, previous tobacco dependence, peripheral arterial disease POD #6 quadruple coronary artery bypass grafting using the left internal mammary artery to the left anterior descending artery, reverse saphenous vein graft from the aorta to the first obtuse marginal artery, reverse saphenous vein graft from the previous vein graft and an anastomosis to the diagonal artery, reverse saphenous vein graft from the aorta to the posterior descending artery, exclusion of the left atrial appendage using a 35 mm AtriClip, endoscopic harvesting of the left greater saphenous vein, intraoperative graft flow measurements using the [place] system, intraoperative transesophageal echo cardiogram and epi-aortic scanning Postoperative acute blood loss anemia, expected given hemodilution and cardiopulmonary bypass pump The patient was seen and examined this morning sitting up in a recliner in the intensive care unit in no acute distress. Remains in sinus rhythm, remains a bit hypertensive although blood pressure did drop to normal yesterday after IV Lasix given. Patient states pain is controlled with current medication regimen, denies shortness of breath. Currently on room air, achieving 1250 mL on her incentive spirometer. Patient continues to have some generalized weakness, minimal ambulation with staff although she has walked farther since lines tubes have been discontinued. Patient lives alone with no assistance, safety concerns with medical debility noted, likely will need rehab at discharge. Transfer orders were placed for 3 S. cardiac stepdown unit yesterday, no beds available at this time. No other new concerns. Objective - Vital Signs Vital signs: Vital Signs Temp 97.9 F 12/13/21 04:00 Pulse 86 12/13/21 06:14 Resp 16 12/13/21 06:14 BP 123/66 12/13/21 06:14 Pulse Ox 95 12/13/21 04:00 FiO2 50 12/07/21 23:00 Intake & Output 12/12/21 12/13/21 12/13/21 18:59 06:59 18:59 Intake Total 1109 Output Total 1500 600 Balance -391 -600 Weight 71.8 kg Intake: IV 309 Calcium Gluconate in NaCl 100 2 gm In Saline 1 100ml. bag @ 50 mls/hr IVPB ONCE ONE Rx#:[id number] Magnesium Sulfate-D5w Pmx 100 1 gm In Dextrose/Water 1 100ml.bag @ 100 mls/hr IVPB Q1H [facility] Rx#: [id number] Sodium Chloride 0.9% 1, 100 000 ml @ 20 mls/hr IV . Q24H [facility] Rx#:[id number] pressure bags 9 Oral 800 Output: Urine 1500 600 Other: Voiding Method Bedside Commode Bedside Commode # Bowel Movements 1 ABP, PAP, CO, CI - Last Documented Arterial Blood Pressure 112/47 Pulmonary Artery Pressure 20/4 Cardiac Output 3.4 Cardiac Index 2 - Exam CONSTITUTIONAL: Appears comfortable, cooperative, no acute distress RESPIRATORY: Lungs sounds diminished bilaterally. Respirations even, nonlabored. Currently on room air with oxygen saturation 95%. Able to achieve 1250 mL on incentive spirometry. Strong cough. CARDIOVASCULAR: S1, S2 present. Regular rate and rhythm, sinus rhythm on telemetry. Sternum stable. Palpable peripheral pulses bilaterally. No edema present. No calf pain or tenderness noted. Heart hugger in place with patient demonstrating appropriate use. Antiembolism stockings, SCDs present. GASTROINTESTINAL: Abdomen soft, nontender, nondistended, obese. Active bowel sounds present 4 quadrants. Tolerating diet. Positive bowel movement GENITOURINARY: Continues to void. Output 2100 mL in the last 24 hours INTEGUMENTARY: Skin is warm and dry with evidence of good perfusion. Anterior chest incision well approximated and covered with dry intact dressing. Left lower extremity EVH site well approximated without redness NEUROLOGIC: Cranial nerves II through XII intact MUSKULOSKELETAL: Able to move all extremities, strength equal bilaterally, generalized weakness present PSYCHIATRIC: Alert and oriented to person place and time, appropriate affect, intact judgment and insight INVASIVE LINES AND TUBES: A/V epicardial pacemaker wires present, grounded. - Allied health notes Allied health notes reviewed: nursing - Labs CBC & Chem 7: 12/13/21 03:29 12/13/21 03:29 Labs: Abnormal Lab Results - Last 24 Hours (Table) 12/12/21 12/13/21 12/13/21 Range/Units 20:10 03:29 03:29 RBC 2.92 L (3.80-5.40) m/uL Hgb 9.0 L (11.4-16.0) gm/dL Hct 27.8 L (34.0-46.0) % Sodium 132 L (137-145) mmol/L Glucose 103 H (74-99) mg/dL POC Glucose (mg/dL) 112 H (70-110) mg/dL Calcium 7.8 L (8.4-10.2) mg/dL - Imaging and Cardiology Chest x-ray: image reviewed Assessment and Plan Assessment: 1. Triple-vessel diffuse calcific coronary artery disease, status post four- vessel CABG 2. Preserved systolic function 3. Hypertension 4. Hyperlipidemia, cholesterol 269, LDL 171, triglycerides 245 5. Esophageal stricture with serial dilatation 6. Previous tobacco dependence, preoperative FEV1 77% of predicted 7. Peripheral arterial disease, right lower extremity TORITO 0.83 8. Postoperative acute blood loss anemia, expected 9. Medical debility Plan: 1. Continue to maximize medical therapy with aspirin, statin, Plavix, beta rani therapy. Will increase beta rani therapy as tolerated 2. Continue Cozaar for afterload reduction 3. Continue amiodarone for A. fib prophylaxis 4. Encourage incentive spirometry was 10 times every hour while awake. Bronchodilators per pulmonology 5. Increase activity as tolerated. PT/OT/cardiac rehab consulted. Patient needs much encouragement 6. Will monitor daily labs and x-rays. Electrolyte replacement per protocol. IV lasix 20 mg order 7. GI/DVT prophylaxis 8. Pain control per medication regimen. Avoid narcotics 9. Insulin management per primary care service. Patient is not diabetic, preoperative hemoglobin A1c 5.8% 10. Strict accurate intake and output. Daily weights. Patient to shower daily 11. Consult placed to Dr. Chiu for possible inpatient rehab at discharge as patient lives alone with no family support, week and unsafe to return home, needs daily physician assessment for medication adjustment 12. Will discontinue epicardial pacemaker wires today. Patient remained on bedrest for 1 hour post-wire removal 13. May transfer 3 S. cardiac stepdown unit when bed available 14. Discharge planning in progress. Anticipate discharge to inpatient rehab in the next 24-48 hours 15. More recommendations to follow
[2021-12-13] MEDS: IPRATROPIUM-ALBUTEROL 3 ML NEB INHALATION SCH ×4 (07:27→19:19)
--- NOTE | 2021-12-13 07:42 | XR ---
EXAMINATION TYPE: XR chest 2V DATE OF EXAM: 12/13/2021 5:52 AM COMPARISON: Chest radiograph from one day prior. TECHNIQUE: XR chest 2V Frontal and lateral views of the chest. CLINICAL INDICATION:Female, 81 years old with history of post cardiac surgery; FINDINGS: Lungs/Pleura: There is no evidence of focal consolidation, or pneumothorax. Trace bilateral pleural effusions. Pulmonary vascularity: Unremarkable. Heart/mediastinum: Cardiomediastinal silhouette is unremarkable. Left atrial appendage occlusion barrera ce is present. Surgical clips project over the mediastinum. Musculoskeletal: No acute osseous pathology. Midline sternotomy wires are noted. Suspected post right shoulder surgical changes Other findings: Where density projects over the lower neck posteriorly similar to one day prior. IMPRESSION: Small bilateral pleural effusions with cardiomegaly.
[2021-12-13] MEDS: AMIODARONE 200 MG TAB PO SCH ×2 (08:31→20:36)
[2021-12-13] MEDS: CHOLECALCIFEROL 25 MCG (1000 IU) TABLET PO SCH (08:31)
[2021-12-13] MEDS: ATORVASTATIN 40 MG TAB PO SCH (08:31)
[2021-12-13] MEDS: MULTIVITAMINS, THERA 1 EACH TAB PO SCH (08:31)
[2021-12-13] MEDS: ASPIRIN 325 MG TAB PO SCH (08:31)
[2021-12-13] MEDS: LOSARTAN 50 MG TAB PO SCH (08:31)
[2021-12-13] MEDS: METOPROLOL TARTRATE 50 MG TAB PO SCH ×2 (08:32→20:35)
[2021-12-13] MEDS: ENOXAPARIN 40 MG/0.4 ML SYRINGE SQ SCH (08:33)
[2021-12-13] MEDS: CLOPIDOGREL 75 MG TAB PO SCH (08:34)
--- NOTE | 2021-12-13 09:07 | P.PN ---
Progress Note - Text Therapy notes from yesterday reviewed and with safety concerns and was able to benefit. Currently is IPR candidate.
[2021-12-13] MEDS: MUPIROCIN 2% OINT 22 GM TUBE NASAL SCH ×2 (09:25→20:39)
--- NOTE | 2021-12-13 10:25 | P.PN ---
Subjective Progress Note Date: 12/13/21 Principal diagnosis: Status post bypass surgery. Status post quadruple CABG postoperative day #3 This is an 80-year-old female with known history of hypertension and dyslipidemia patient has been developing dyspnea on exertion and chest discomfort. On 11/28, patient underwent cardiac catheterization, and she was found to have severe triple-vessel coronary artery disease, a right dominance, elevated left ventricular end-diastolic pressure. Patient was referred to surgery. Patient was seen by Samra, today the patient underwent myocardial revascularization. Postoperatively patient was kept on mechanical ventilation, and I was asked to see her on consultation. Presently the patient is in the ICU, she is on assist control rate of 16 volume 350 FiO2 50% and PEEP of 5 patient is on multiple drips including amiodarone 1 mg/m, nitroglycerin, propofol 50 mcg/m, milrinone, 0.2 mcg/kg/m, Cleviprex at 4 mg/h insulin at 2 units per hour. Patient has a cardiac output of 4.9 and cardiac index of 2.9. Chest x-ray showed small left pleural effusion with expected postoperative changes secondary to CABG. Reevaluated today on 12/08/21, patient remains in the ICU, she was extubated yesterday uneventfully. He is on 3 L nasal cannula. Remains on multiple drips including amiodarone at 0.5 mg/m, Cleviprex at 4 mg/h insulin at 5.5 units per hour patient is relatively asymptomatic, doing well, generally weak, able to achieve almost thousand cc with incentive spirometry. Chest x-ray showed chronic left lower lobe atelectasis and pleural effusion, small. No new process is noted. WBC scan 6.7 hemoglobin is 9.8. Basic metabolic profile is normal, renal profile is normal Reevaluated today on 12/09/21, patient remains in the ICU, sitting in her recliner, she is on 3 L nasal cannula, she is on Primacor at 0.1 mcg/kg/m, otherwise the patient is doing great. Patient is in sinus rhythm, hemodynamically stable, she is being weaned off Primacor. Her cardiac output and cardiac index was noted to be on the low side. Hence Primacor was restarted yesterday after stopping it. At times the patient is requiring clevidipine. Her postsurgical pain is controlled. She denies any shortness of breath. Achieving about 1000 mL with incentive spirometry. Continues to have mediastinal left and the right pleural chest tubes and she continues to have this [place] and [place] catheter. WBC count is 4.7 hemoglobin is 8.1 electrolytes are normal except for slightly low sodium of 129. Blood sugar is 111. Seen on 12/10/21, patient is now postoperative day #3. Patient is now on room air, she is still requiring Primacor at 0.1 mcg/kg/m, her IV fluid to KVO, she is on Cleviprex at 2 mg per hour. Chest x-ray is reassuring, no active disease noted. She is in sinus rhythm, bit hypertensive on Cleviprex. Her cardiac index was a bit marginal at 2.3 cardiac output is 3.9, remains on Primacor. Achieving 750 ML in incentive spirometry. Generally weak. Continues to have right internal jugular [place] and [place]. And she has left and right pleural chest tubes. WBC count is 4.9 hemoglobin 8.5. Normal except for slightly low sodium of 129 Progress note dated 12/11/2021. The patient was admitted on December 07. She had surgery on December 07. She had a four-vessel bypass grafting. Currently, she is resting comfortably in room 252. She is on 3 L of oxygen. She's getting saline at 20 mL an hour. She's currently on Cleveprex at 4 mg an hour, and Primacor at 0.1 mcg/kg/m. She is getting between 750-1000 mL on her incentive spirometer. Labs today include a white count 6.2, hemoglobin 8.6, hematocrit 26.4, and platelet count 252,000. Sodium 134, potassium 3.9, chlorides 105, CO2 20, BUN 12, creatinine 0.64. Chest x-ray shows some atelectasis at the left base, and a small left-sided pleural effusion. Progress note dated 12/12/2021. This is a 81-year-old female who was admitted on December 07. She had surgery on December 07. She had a four-vessel bypass grafting. She is resting comfortably in room 252. Currently, she is on 2 L of oxygen, and getting saline at 20 mL an hour. Yesterday, the patient was on Cleveprex, and Primacor, they have been weaned off. She still is struggling with her incentive spirometer a bit. We encourage it to be used on a hourly basis. We also recommend deep breathing, coughing, and clearing of secretions. Currently laboratory data includes a white count of 6.5, hemoglobin 8.4, hematocrit 25.3, and a platelet count of 196,000. Sodium 131, potassium 3.8, chlorides 102, CO2 21, BUN 15, creatinine 0.7. Chest x-ray shows bibasilar atelectasis. Progress note dated 12/13/2021. 81-year-old female who was admitted on December 07. She had surgery on December 07. She had a four-vessel bypass surgery. Currently, seen in room 252. She's currently on room air. Saturations are between 91 and 93%. She's not receiving any IV fluids. She did receive Lasix 20 mg IV push once his morning. White count 8, hemoglobin 9, hematocrit 27.8, and count 242,000. Sodium 132, potassium 4.4, chlorides 101, CO2 22, BUN 13, creatinine 0.73. Chest x-ray shows cardiomegaly, small bilateral pleural effusions, minimal basilar atelectasis. Objective - Vital Signs Vital signs: Vital Signs Temp 98.2 F 12/13/21 08:00 Pulse 89 12/13/21 08:00 Resp 22 12/13/21 08:00 BP 114/62 12/13/21 08:00 Pulse Ox 90 L 12/13/21 08:00 FiO2 50 12/07/21 23:00 Intake & Output 12/12/21 12/13/21 12/13/21 18:59 06:59 18:59 Intake Total 1109 Output Total 1500 600 950 Balance -391 -600 -950 Weight 71.8 kg Intake: IV 309 Calcium Gluconate in NaCl 100 2 gm In Saline 1 100ml. bag @ 50 mls/hr IVPB ONCE ONE Rx#:[id number] Magnesium Sulfate-D5w Pmx 100 1 gm In Dextrose/Water 1 100ml.bag @ 100 mls/hr IVPB Q1H [facility] Rx#: [id number] Sodium Chloride 0.9% 1, 100 000 ml @ 20 mls/hr IV . Q24H [facility] Rx#:[id number] pressure bags 9 Oral 800 Output: Urine 1500 600 950 Other: Voiding Method Bedside Commode Bedside Commode # Bowel Movements 1 1 ABP, PAP, CO, CI - Last Documented Arterial Blood Pressure 112/47 Pulmonary Artery Pressure 20/4 Cardiac Output 3.4 Cardiac Index 2 - Exam No acute distress, oriented 3. Currently on room air. No respiratory distress. No use of accessory muscles. No conversational dyspnea. HEENT examination is grossly unremarkable. Neck supple. Full range of motion. No adenopathy thyromegaly or neck vein distention. Cardiovascular examination reveals regular rhythm rate. S1-S2 normal. No S3 or S4. No discernible murmur noted. Heart rate 89 bpm. Lungs reveal diminished bilateral breath sounds. Minimal rhonchi. No wheezes or crackles. Saturations 92% on room air. Abdomen soft bowel sounds are heard. No masses or tenderness. Extremities are intact. No cyanosis clubbing or edema. Skin is without rash or lesion. Neurologic examination is brief but nonfocal. - Labs CBC & Chem 7: 12/13/21 03:29 12/13/21 03:29 Labs: Abnormal Lab Results - Last 24 Hours (Table) 12/12/21 12/13/21 12/13/21 Range/Units 20:10 03:29 03:29 RBC 2.92 L (3.80-5.40) m/uL Hgb 9.0 L (11.4-16.0) gm/dL Hct 27.8 L (34.0-46.0) % Sodium 132 L (137-145) mmol/L Glucose 103 H (74-99) mg/dL POC Glucose (mg/dL) 112 H (70-110) mg/dL Calcium 7.8 L (8.4-10.2) mg/dL Assessment and Plan Assessment: Postop day #6, status post four-vessel bypass grafting, left atrial appendage exclusion, and intraoperative transesophageal echocardiogram. Routine postoperative ventilator management. Benign essential hypertension. Degenerative joint disease. History of GI bleeding. History of GERD. History of hypothyroidism. History of overactive bladder. Chronic low back pain. Remote tobacco use, quit in 2005. Plan: Plan dated 12/11/2021. The patient's labs, x-rays, medications are all reviewed. The patient needs to continue to work on her incentive spirometer. She has some left basilar atelectasis and a left-sided pleural effusion. She remains on Cleveprex at 4 mg per hour, for blood pressure control, and Primacor 0.1 mcg/kg/m, as an inotropic agent. We will continue to follow and make recommendations along the way. She is postop day #4. Prognosis is guarded. Plan dated 12/12/2021. Labs, x-rays, and medications are reviewed. Patient remains on 2 L. She's getting saline at 20 mL an hour. Cleveprex and Primacor have been weaned off. Additional recommendations and suggestions are forthcoming. We went the patient to continue using incentive spirometer, every hour while awake. We also recommend deep breathing, coughing, clearing of secretions. Prognosis is guarded. We'll continue to follow and make recommendations along the way. Plan dated 12/13/2021. The patient is currently being evaluated for inpatient rehab. She is on room air. Saturations are in the low 90s. She's not receiving any IV fluids. She did receive Lasix 20 mg IV push once. The patient is doing well. She does need to continue using the incentive spirometer every hour. We will continue to follow. Labs, x-rays, and medications are reviewed. Prognosis is guarded. Time with Patient: Less than 30
[2021-12-13 11:26] LABS: Glucose,Whole Blood 83 mg/dL (70-110)
--- NOTE | 2021-12-13 11:44 | P.PN ---
Subjective Progress Note Date: 12/12/21 Sandra Nichole, is an 80-year-old female patient who was found to have severe triple coronary artery disease. Patient presented for an elective coronary artery bypass graft surgery on 12/07/[address] Moyer. Patient has a past medical history of GERD, chronic back pain, GI bleed, osteoarthritis and di verticular bleed. Patient underwent quadruple coronary artery bypass graft surgery on 12/07/2021 and was transferred to the intensive care unit postoperatively. 12/11/2021 patient is currently postop day 4. Patient is alert and oriented 3 sitting up in chair. Patient remains in the intensive care unit [place] remains in place patient remains on IV Primacor and cleviprex drips. Patient also remains with left and right pleural chest tubes. Patient currently on 2 L nasal cannula incentive spirometer at bedside. On 12/12/2021 patient is currently postop day 5. Patient is alert and oriented 3 currently sitting up in chair. Dr. Rogers has been consulted for possible inpatient rehab. Patient denies any chest pain or shortness breath. Patient denies nausea vomiting or diarrhea. Patient denies any urinary burning or frequency Objective - Vital Signs Vital signs: Vital Signs Temp 97.9 F 12/12/21 08:00 Pulse 81 12/12/21 09:00 Resp 17 12/12/21 09:00 BP 116/59 12/12/21 09:00 Pulse Ox 97 12/12/21 09:00 FiO2 50 12/07/21 23:00 Intake & Output 12/11/21 12/12/21 12/12/21 18:59 06:59 18:59 Intake Total 1009.262 626 249 Output Total 2140 350 600 Balance -1130.738 276 -351 Weight 71 kg Intake: IV 352 276 149 Magnesium Sulfate-D5w Pmx 100 1 gm In Dextrose/Water 1 100ml.bag @ 100 mls/hr IVPB Q1H [facility] Rx#: [id number] Sodium Chloride 0.9% 1, 240 240 40 000 ml @ 20 mls/hr IV . Q24H [facility] Rx#:[id number] cardiac output 40 pressure bags 72 36 9 Intake, IV Titration 57.262 Amount Milrinone-D5w Pmx 20 mg 57.262 In Dextrose/Water 1 100ml .bag @ 0.1 MCG/KG/MIN 2. 13 mls/hr IV .Q24H [facility] Rx #:[id number] Oral 600 350 100 Output: Chest Tube Drainage 40 left pleural 20 right pleural 20 Urine 2100 350 600 Other: Voiding Method Bedside Commode Bedside Commode Bedside Commode # Bowel Movements 1 ABP, PAP, CO, CI - Last Documented Arterial Blood Pressure 118/47 Pulmonary Artery Pressure 20/4 Cardiac Output 3.4 Cardiac Index 2 - Exam Head normocephalic Neck supple Lungs clear to auscultation bilaterally no wheezing or crackles. chest tubes in place Heart regular rate and rhythm S1-S2, no rub or gallop Abdomen is soft nontender nondistended positive bowel sounds no hepatosplenomegaly Extremities no edema Neuro alert and orientated to 3 - Labs CBC & Chem 7: 12/13/21 03:29 12/13/21 03:29 Labs: Abnormal Lab Results - Last 24 Hours (Table) 12/11/21 12/12/21 12/12/21 Range/Units 20:01 04:00 04:00 RBC 2.70 L (3.80-5.40) m/uL Hgb 8.4 L (11.4-16.0) gm/dL Hct 25.3 L (34.0-46.0) % Sodium 131 L (137-145) mmol/L Carbon Dioxide 21 L (22-30) mmol/L POC Glucose (mg/dL) 117 H (70-110) mg/dL Calcium 7.1 L (8.4-10.2) mg/dL Assessment and Plan Assessment: 1. Coronary artery disease s/p quadruple coronary artery past graft surgery on 12/07/[address] Moyer 2. History of essential hypertension 3. History of GI bleed 4. History of GERD 5. History of hypothyroidism 6. History of chronic lower back pain Patient will likely need ECF for rehab upon discharge Dr. Rogers consulted for inpatient rehab
--- NOTE | 2021-12-13 11:46 | P.PN ---
Subjective Progress Note Date: 12/13/21 Sandra Nichole, is an 80-year-old female patient who was found to have severe triple coronary artery disease. Patient presented for an elective coronary artery bypass graft surgery on 12/07/[address] Moyer. Patient has a past medical history of GERD, chronic back pain, GI bleed, osteoarthritis and di verticular bleed. Patient underwent quadruple coronary artery bypass graft surgery on 12/07/2021 and was transferred to the intensive care unit postoperatively. 12/11/2021 patient is currently postop day 4. Patient is alert and oriented 3 sitting up in chair. Patient remains in the intensive care unit [place] remains in place patient remains on IV Primacor and cleviprex drips. Patient also remains with left and right pleural chest tubes. Patient currently on 2 L nasal cannula incentive spirometer at bedside. On 12/12/2021 patient is currently postop day 5. Patient is alert and oriented 3 currently sitting up in chair. Dr. Rogers has been consulted for possible inpatient rehab. Patient denies any chest pain or shortness breath. Patient denies nausea vomiting or diarrhea. Patient denies any urinary burning or frequency 12/13/2021 patient is alert and oriented 3. Patient is postop day 6. Patient has been ordered out of the intensive care unit. Hemoglobin 9.0 patient cur rently on room air at this time patient is a candidate for inpatient rehab Objective - Vital Signs Vital signs: Vital Signs Temp 98.2 F 12/13/21 08:00 Pulse 68 12/13/21 11:22 Resp 22 12/13/21 08:00 BP 114/62 12/13/21 08:00 Pulse Ox 90 L 12/13/21 08:00 FiO2 50 12/07/21 23:00 Intake & Output 12/12/21 12/13/21 12/13/21 18:59 06:59 18:59 Intake Total 1109 Output Total 1500 600 950 Balance -391 -600 -950 Weight 71.8 kg Intake: IV 309 Calcium Gluconate in NaCl 100 2 gm In Saline 1 100ml. bag @ 50 mls/hr IVPB ONCE ONE Rx#:[id number] Magnesium Sulfate-D5w Pmx 100 1 gm In Dextrose/Water 1 100ml.bag @ 100 mls/hr IVPB Q1H [facility] Rx#: [id number] Sodium Chloride 0.9% 1, 100 000 ml @ 20 mls/hr IV . Q24H [facility] Rx#:[id number] pressure bags 9 Oral 800 Output: Urine 1500 600 950 Other: Voiding Method Bedside Commode Bedside Commode # Bowel Movements 1 1 ABP, PAP, CO, CI - Last Documented Arterial Blood Pressure 112/47 Pulmonary Artery Pressure 20/4 Cardiac Output 3.4 Cardiac Index 2 - Exam Head normocephalic Neck supple Lungs clear to auscultation bilaterally no wheezing or crackles. chest tubes in place Heart regular rate and rhythm S1-S2, no rub or gallop Abdomen is soft nontender nondistended positive bowel sounds no hepatosplenomegaly Extremities no edema Neuro alert and orientated to 3 - Labs CBC & Chem 7: 12/13/21 03:29 12/13/21 03:29 Labs: Abnormal Lab Results - Last 24 Hours (Table) 12/12/21 12/13/21 12/13/21 Range/Units 20:10 03:29 03:29 RBC 2.92 L (3.80-5.40) m/uL Hgb 9.0 L (11.4-16.0) gm/dL Hct 27.8 L (34.0-46.0) % Sodium 132 L (137-145) mmol/L Glucose 103 H (74-99) mg/dL POC Glucose (mg/dL) 112 H (70-110) mg/dL Calcium 7.8 L (8.4-10.2) mg/dL Assessment and Plan Assessment: 1. Coronary artery disease s/p quadruple coronary artery past graft surgery on 12/07/[address] Moyer 2. History of essential hypertension 3. History of GI bleed 4. History of GERD 5. History of hypothyroidism 6. History of chronic lower back pain Discharge planning to IPR
[2021-12-13 16:54] LABS: Glucose,Whole Blood 104 mg/dL (70-110)
[2021-12-13 20:07] LABS: Glucose,Whole Blood 164 mg/dL (70-110)
[2021-12-13] MEDS: SENNOSIDES-DOCUSATE SODIUM 1 EACH TAB PO SCH (20:36)
[2021-12-13] MEDS: NON FORMULARY DRUG (Mirabegron [Myrbetriq] 25 MG Tab.Er.24h) PO SCH (20:38)
[2021-12-14] MEDS: KETOROLAC 15 MG/ML 1 ML VIAL IVP SCH ×3 (00:55→12:36)
[2021-12-14] MEDS: ACETAMINOPHEN TAB 500 MG TAB PO PRN ×2 (03:59→12:39)
--- NOTE | 2021-12-14 06:10 | XR ---
EXAMINATION TYPE: XR chest 2V DATE OF EXAM: 12/14/2021 COMPARISON: Chest x-ray from one day earlier HISTORY: Postoperative cardiac surgery. TECHNIQUE: Frontal and lateral views of the chest are obtained. FINDINGS: Right sternal wires and mediastinal clips along with left atrial appendage clips are all r edemonstrated. Persistent cardiomegaly with small to tiny size left greater than right pleural effusions. Associated left basilar opacity redemonstrated. Upper lungs remain clear without pneumothorax. Metallic sutures overlie posterior aspect of the cervical spine. Osseous structures are demineralized. IMPRESSION: Cardiomegaly with small to tiny size left greater than right pleural effusions and assoc iated left basilar atelectasis and/or infiltrate. No significant change from one day earlier.
[2021-12-14] MEDS: LEVOTHYROXINE 25 MCG TAB PO SCH (06:36)
[2021-12-14 06:46] LABS: Glucose,Whole Blood 98 mg/dL (70-110)
--- NOTE | 2021-12-14 06:49 | P.PN ---
Subjective Progress Note Date: 12/14/21 Principal diagnosis: CAD and status post open heart The patient is an 80-year-old female patient who was experiencing symptoms of chest discomfort and shortness of breath with exertion. She underwent a heart catheterization and that revealed severe triple-vessel coronary artery disease. She underwent CABG. The patient was seen this morning. She continues to be stable from a cardiac vascular standpoint of view. She has been maintaining normal sinus mechanism. The pressure has been under better control on the current medical regimen. The chest x-ray was reviewed and showed small left pleural effusion definitely has improved compared to before From a cardiovascular standpoint of view I would suggest continue the current medical regimen. The patient can be transferred to [facility]. The patient was seen today 12/14/2021. She is stable overall from a cardiovascular standpoint of view. She has been maintaining normal sinus mechanism. The pressure seems to be under overall reasonable control. The chest x-ray was reviewed and continues to be showing stable finding with small left pleural effusion. From a cardiovascular standpoint of view, the patient potentially can be discharged in the next 24-48 hours. Objective - Vital Signs Vital signs: Vital Signs Temp 98 F 12/14/21 04:00 Pulse 73 12/14/21 04:00 Resp 20 12/14/21 04:00 BP 149/76 12/14/21 04:00 Pulse Ox 95 12/14/21 04:00 FiO2 50 12/07/21 23:00 Intake & Output 12/13/21 12/13/21 12/14/21 06:59 18:59 06:59 Intake Total 540 Output Total 600 1250 700 Balance -600 -1250 -160 Weight 71.8 kg 68 kg Intake: Oral 540 Output: Urine 600 950 700 Urine/Stool Mix 300 Other: Voiding Method Bedside Commode Bedside Commode # Voids 1 # Bowel Movements 1 ABP, PAP, CO, CI - Last Documented Arterial Blood Pressure 112/47 Pulmonary Artery Pressure 20/4 Cardiac Output 3.4 Cardiac Index 2 - Constitutional General appearance: Present: no acute distress - Respiratory Respiratory: bilateral: diminished - Cardiovascular Rhythm: regular - Labs CBC & Chem 7: 12/13/21 03:29 12/13/21 03:29 Labs: Abnormal Lab Results - Last 24 Hours (Table) 12/13/21 Range/Units 20:05 POC Glucose (mg/dL) 164 H (70-110) mg/dL Assessment and Plan Assessment: Assessment #1 severe triple-vessel CAD and status post CABG #2 mild cardiomyopathy #3 hypertension #4 dyslipidemia Plan #1 the patient overall is stable from a cardiac vascular standpoint of view #2 continue dual antiplatelet therapy #3 continue statin #4 continue beta rani #5 the patient can be discharged in the next 24 hours
[2021-12-14] MEDS: INSULIN ASPART (NovoLOG) 100 UNIT/ML VIAL SQ SCH ×2 (06:51→11:54)
[2021-12-14 06:59] LABS: HCT 28.9 % (34.0-46.0); HGB 9.1 gm/dL (11.4-16.0); Hypochromasia Slight; MCH 30.2 pg (25.0-35.0); MCHC 31.6 g/dL (31.0-37.0); MCV 95.7 fL (80.0-100.0); Mean Platelet Volume 7.5; Platelet Count 317 k/uL (150-450); RBC 3.02 m/uL (3.80-5.40); RDW 14.8 % (11.5-15.5); WBC 8.8 k/uL (3.8-10.6)
[2021-12-14] MEDS: FERROUS SULFATE 325 MG TAB PO SCH (07:04)
[2021-12-14] MEDS: ASCORBIC ACID 500 MG TAB PO SCH (07:04)
[2021-12-14] MEDS: PANTOPRAZOLE 40 MG TABLET PO SCH (07:04)
--- NOTE | 2021-12-14 07:11 | P.PN ---
Subjective Progress Note Date: 12/14/21 Principal diagnosis: Status post bypass surgery. Status post quadruple CABG postoperative day #3 This is an 80-year-old female with known history of hypertension and dyslipidemia patient has been developing dyspnea on exertion and chest discomfort. On 11/28, patient underwent cardiac catheterization, and she was found to have severe triple-vessel coronary artery disease, a right dominance, elevated left ventricular end-diastolic pressure. Patient was referred to surgery. Patient was seen by Samra, today the patient underwent myocardial revascularization. Postoperatively patient was kept on mechanical ventilation, and I was asked to see her on consultation. Presently the patient is in the ICU, she is on assist control rate of 16 volume 350 FiO2 50% and PEEP of 5 patient is on multiple drips including amiodarone 1 mg/m, nitroglycerin, propofol 50 mcg/m, milrinone, 0.2 mcg/kg/m, Cleviprex at 4 mg/h insulin at 2 units per hour. Patient has a cardiac output of 4.9 and cardiac index of 2.9. Chest x-ray showed small left pleural effusion with expected postoperative changes secondary to CABG. Reevaluated today on 12/08/21, patient remains in the ICU, she was extubated yesterday uneventfully. He is on 3 L nasal cannula. Remains on multiple drips including amiodarone at 0.5 mg/m, Cleviprex at 4 mg/h insulin at 5.5 units per hour patient is relatively asymptomatic, doing well, generally weak, able to achieve almost thousand cc with incentive spirometry. Chest x-ray showed chronic left lower lobe atelectasis and pleural effusion, small. No new process is noted. WBC scan 6.7 hemoglobin is 9.8. Basic metabolic profile is normal, renal profile is normal Reevaluated today on 12/09/21, patient remains in the ICU, sitting in her recliner, she is on 3 L nasal cannula, she is on Primacor at 0.1 mcg/kg/m, otherwise the patient is doing great. Patient is in sinus rhythm, hemodynamically stable, she is being weaned off Primacor. Her cardiac output and cardiac index was noted to be on the low side. Hence Primacor was restarted yesterday after stopping it. At times the patient is requiring clevidipine. Her postsurgical pain is controlled. She denies any shortness of breath. Achieving about 1000 mL with incentive spirometry. Continues to have mediastinal left and the right pleural chest tubes and she continues to have this Cordis and Adair-King catheter. WBC count is 4.7 hemoglobin is 8.1 electrolytes are normal except for slightly low sodium of 129. Blood sugar is 111. Seen on 12/10/21, patient is now postoperative day #3. Patient is now on room air, she is still requiring Primacor at 0.1 mcg/kg/m, her IV fluid to KVO, she is on Cleviprex at 2 mg per hour. Chest x-ray is reassuring, no active disease noted. She is in sinus rhythm, bit hypertensive on Cleviprex. Her cardiac index was a bit marginal at 2.3 cardiac output is 3.9, remains on Primacor. Achieving 750 ML in incentive spirometry. Generally weak. Continues to have right internal jugular Adair-King and Cordis. And she has left and right pleural chest tubes. WBC count is 4.9 hemoglobin 8.5. Normal except for slightly low sodium of 129 Progress note dated 12/11/2021. The patient was admitted on December 07. She had surgery on December 07. She had a four-vessel bypass grafting. Currently, she is resting comfortably in room 252. She is on 3 L of oxygen. She's getting saline at 20 mL an hour. She's currently on Cleveprex at 4 mg an hour, and Primacor at 0.1 mcg/kg/m. She is getting between 750-1000 mL on her incentive spirometer. Labs today include a white count 6.2, hemoglobin 8.6, hematocrit 26.4, and platelet count 252,000. Sodium 134, potassium 3.9, chlorides 105, CO2 20, BUN 12, creatinine 0.64. Chest x-ray shows some atelectasis at the left base, and a small left-sided pleural effusion. Progress note dated 12/12/2021. This is a 81-year-old female who was admitted on December 07. She had surgery on December 07. She had a four-vessel bypass grafting. She is resting comfortably in room 252. Currently, she is on 2 L of oxygen, and getting saline at 20 mL an hour. Yesterday, the patient was on Cleveprex, and Primacor, they have been weaned off. She still is struggling with her incentive spirometer a bit. We encourage it to be used on a hourly basis. We also recommend deep breathing, coughing, and clearing of secretions. Currently laboratory data includes a white count of 6.5, hemoglobin 8.4, hematocrit 25.3, and a platelet count of 196,000. Sodium 131, potassium 3.8, chlorides 102, CO2 21, BUN 15, creatinine 0.7. Chest x-ray shows bibasilar atelectasis. Progress note dated 12/13/2021. 81-year-old female who was admitted on December 07. She had surgery on December 07. She had a four-vessel bypass surgery. Currently, seen in room 252. She's currently on room air. Saturations are between 91 and 93%. She's not receiving any IV fluids. She did receive Lasix 20 mg IV push once his morning. White count 8, hemoglobin 9, hematocrit 27.8, and count 242,000. Sodium 132, potassium 4.4, chlorides 101, CO2 22, BUN 13, creatinine 0.73. Chest x-ray shows cardiomegaly, small bilateral pleural effusions, minimal basilar atelectasis. Progress report dated 12/14/2021. 81-year-old female who was admitted on December 07, had surgery on December 07, including a four-vessel bypass surgery. She is seen again today in room 232. Currently, she is on room air. She's not receiving any IV fluids the patient is currently being evaluated for possible inpatient rehabilitation [facility]. She has no complaints other than the fact that she is weak. Today's labs include a glucose of 98, white count 8.8, hemoglobin 9.1, hematocrit 28.9, and platelet count 317,000. Chest x-ray shows cardiomegaly, with left greater than right small effusions, and some minimal basilar atelectasis. Objective - Vital Signs Vital signs: Vital Signs Temp 98 F 12/14/21 04:00 Pulse 73 12/14/21 04:00 Resp 20 12/14/21 04:00 BP 149/76 12/14/21 04:00 Pulse Ox 95 12/14/21 04:00 FiO2 50 12/07/21 23:00 Intake & Output 12/13/21 12/14/21 12/14/21 18:59 06:59 18:59 Intake Total 540 Output Total 1250 700 Balance -1250 -160 Weight 68 kg Intake: Oral 540 Output: Urine 950 700 Urine/Stool Mix 300 Other: Voiding Method Bedside Commode # Voids 1 # Bowel Movements 1 ABP, PAP, CO, CI - Last Documented Arterial Blood Pressure 112/47 Pulmonary Artery Pressure 20/4 Cardiac Output 3.4 Cardiac Index 2 - Exam No acute distress, oriented 3. Currently on room air. No respiratory distress. No use of accessory muscles. No conversational dyspnea. HEENT examination is grossly unremarkable. Neck supple. Full range of motion. No adenopathy thyromegaly or neck vein distention. Cardiovascular examination reveals regular rhythm rate. S1-S2 normal. No S3 or S4. No discernible murmur noted. Heart rate 70. bpm. Lungs reveal diminished bilateral breath sounds. Minimal rhonchi. No wheezes or crackles. Saturations 95 % on room air. Abdomen soft bowel sounds are heard. No masses or tenderness. Extremities are intact. No cyanosis clubbing or edema. Skin is without rash or lesion. Neurologic examination is brief but nonfocal. - Labs CBC & Chem 7: 12/14/21 06:28 12/13/21 03:29 Labs: Abnormal Lab Results - Last 24 Hours (Table) 12/13/21 12/14/21 Range/Units 20:05 06:28 RBC 3.02 L (3.80-5.40) m/uL Hgb 9.1 L (11.4-16.0) gm/dL Hct 28.9 L (34.0-46.0) % POC Glucose (mg/dL) 164 H (70-110) mg/dL Assessment and Plan Assessment: Postop day #7, status post four-vessel bypass grafting, left atrial appendage exclusion, and intraoperative transesophageal echocardiogram. Routine postoperative ventilator management. Benign essential hypertension. Degenerative joint disease. History of GI bleeding. History of GERD. History of hypothyroidism. History of overactive bladder. Chronic low back pain. Remote tobacco use, quit in 2005. Plan: Plan dated 12/11/2021. The patient's labs, x-rays, medications are all reviewed. The patient needs to continue to work on her incentive spirometer. She has some left basilar atelectasis and a left-sided pleural effusion. She remains on Cleveprex at 4 mg per hour, for blood pressure control, and Primacor 0.1 mcg/kg/m, as an inotropic agent. We will continue to follow and make recommendations along the way. She is postop day #4. Prognosis is guarded. Plan dated 12/12/2021. Labs, x-rays, and medications are reviewed. Patient remains on 2 L. She's getting saline at 20 mL an hour. Cleveprex and Primacor have been weaned off. Additional recommendations and suggestions are forthcoming. We went the patient to continue using incentive spirometer, every hour while awake. We also recommend deep breathing, coughing, clearing of secretions. Prognosis is guarded. We'll continue to follow and make recommendations along the way. Plan dated 12/13/2021. The patient is currently being evaluated for inpatient rehab. She is on room air. Saturations are in the low 90s. She's not receiving any IV fluids. She did receive Lasix 20 mg IV push once. The patient is doing well. She does need to continue using the incentive spirometer every hour. We will continue to follow. Labs, x-rays, and medications are reviewed. Prognosis is guarded. Plan dated 12/14/2021. The patient is again seen in room 252. She's currently on no supplemental oxygen. She is not receiving any IV fluids. Labs, x-rays, and medications are reviewed. The patient is currently being evaluated for possible inpatient rehabilitation at [facility]. The patient denies any shortness of breath or pain. She is weak. We continue to recommend hourly use the incentive spirometer. Time with Patient: Less than 30
[2021-12-14 07:20] LABS: African American GFR (CKD) >90 (>60 ml/min/1.73 sqM); Anion Gap 9 mmol/L; Blood Urea Nitrogen 11 mg/dL (7-17); Calcium 7.6 mg/dL (8.4-10.2); Carbon Dioxide 22 mmol/L (22-30); Chloride 101 mmol/L (98-107); Glucose 99 mg/dL (74-99); Magnesium 1.8 mg/dL (1.6-2.3); Non-African American GFR(CKD) 83 (>60 ml/min/1.73 sqM); Potassium 3.6 mmol/L (3.5-5.1); Sodium 132 mmol/L (137-145)
[2021-12-14] MEDS: IPRATROPIUM-ALBUTEROL 3 ML NEB INHALATION SCH ×3 (07:29→15:26)
[2021-12-14] MEDS ORDERED: FUROSEMIDE 10 MG/ML 2 ML VIAL IV ONE (07:30)
--- NOTE | 2021-12-14 07:45 | P.PN ---
Subjective Progress Note Date: 12/14/21 Principal diagnosis: Triple-vessel diffuse calcific coronary artery disease, preserved systolic function. Previous medical history of hypertension, hyperlipidemia, esophageal stricture with serial dilatation, previous tobacco dependence, peripheral arterial disease POD #7 quadruple coronary artery bypass grafting using the left internal mammary artery to the left anterior descending artery, reverse saphenous vein graft from the aorta to the first obtuse marginal artery, reverse saphenous vein graft from the previous vein graft and an anastomosis to the diagonal artery, reverse saphenous vein graft from the aorta to the posterior descending artery, exclusion of the left atrial appendage using a 35 mm AtriClip, endoscopic harvesting of the left greater saphenous vein, intraoperative graft flow measurements using the Mindereststim system, intraoperative transesophageal echo cardiogram and epi-aortic scanning Postoperative acute blood loss anemia, expected given hemodilution and cardiopulmonary bypass pump The patient was seen and examined this morning sitting up in a recliner in the intensive care unit in no acute distress. Remains in sinus rhythm, hemodynamically stable. Patient states pain is controlled with current medication regimen, denies shortness of breath. Currently on room air, achieving 1000 mL on her incentive spirometer. Patient continues to have some generalized weakness, minimal ambulation with staff although she has walked farther since lines tubes have been discontinued. Chest x-ray reviewed, small bilateral pleural effusions present which is normal after open heart surgery. Anticipate discharge to inpatient rehab today. No other new concerns. Objective - Vital Signs Vital signs: Vital Signs Temp 98 F 12/14/21 04:00 Pulse 80 12/14/21 07:31 Resp 20 12/14/21 04:00 BP 149/76 12/14/21 04:00 Pulse Ox 95 12/14/21 04:00 FiO2 50 12/07/21 23:00 Intake & Output 12/13/21 12/14/21 12/14/21 18:59 06:59 18:59 Intake Total 540 Output Total 1250 700 Balance -1250 -160 Weight 68 kg Intake: Oral 540 Output: Urine 950 700 Urine/Stool Mix 300 Other: Voiding Method Bedside Commode # Voids 1 # Bowel Movements 1 ABP, PAP, CO, CI - Last Documented Arterial Blood Pressure 112/47 Pulmonary Artery Pressure 20/4 Cardiac Output 3.4 Cardiac Index 2 - Exam CONSTITUTIONAL: Appears comfortable, cooperative, no acute distress RESPIRATORY: Lungs sounds diminished bilaterally. Respirations even, nonlabored. Currently on room air with oxygen saturation 95%. Able to achieve 1000 mL on incentive spirometry. Strong cough. CARDIOVASCULAR: S1, S2 present. Regular rate and rhythm, sinus rhythm on telemetry. Sternum stable. Palpable peripheral pulses bilaterally. No edema present. No calf pain or tenderness noted. Heart hugger in place with patient demonstrating appropriate use. Antiembolism stockings, SCDs present. GASTROINTESTINAL: Abdomen soft, nontender, nondistended, obese. Active bowel sounds present 4 quadrants. Tolerating diet. Positive bowel movement 12/13 GENITOURINARY: Continues to void. Output 1850 mL in the last 24 hours INTEGUMENTARY: Skin is warm and dry with evidence of good perfusion. Anterior chest incision well approximated. Left lower extremity EVH site well appr oximated without redness NEUROLOGIC: Cranial nerves II through XII intact MUSKULOSKELETAL: Able to move all extremities, strength equal bilaterally, generalized weakness present PSYCHIATRIC: Alert and oriented to person place and time, appropriate affect, intact judgment and insight - Allied health notes Allied health notes reviewed: nursing - Labs CBC & Chem 7: 12/14/21 06:28 12/14/21 06:28 Labs: Abnormal Lab Results - Last 24 Hours (Table) 12/13/21 12/14/21 12/14/21 Range/Units 20:05 06:28 06:28 RBC 3.02 L (3.80-5.40) m/uL Hgb 9.1 L (11.4-16.0) gm/dL Hct 28.9 L (34.0-46.0) % Sodium 132 L (137-145) mmol/L POC Glucose (mg/dL) 164 H (70-110) mg/dL Calcium 7.6 L (8.4-10.2) mg/dL - Imaging and Cardiology Chest x-ray: image reviewed Assessment and Plan Assessment: 1. Triple-vessel diffuse calcific coronary artery disease, status post four- vessel CABG 2. Preserved systolic function 3. Hypertension 4. Hyperlipidemia, cholesterol 269, LDL 171, triglycerides 245 5. Esophageal stricture with serial dilatation 6. Previous tobacco dependence, preoperative FEV1 77% of predicted 7. Peripheral arterial disease, right lower extremity TORITO 0.83 8. Postoperative acute blood loss anemia, expected 9. Medical debility Plan: 1. Continue to maximize medical therapy with aspirin, statin, Plavix, beta blo cker therapy 2. Continue Cozaar for afterload reduction 3. Continue amiodarone for A. fib prophylaxis, taper dose weekly 4. Encourage incentive spirometry was 10 times every hour while awake. Bron chodilators per pulmonology 5. Increase activity as tolerated. PT/OT/cardiac rehab consulted. Patient needs much encouragement 6. Will monitor daily labs and x-rays. Electrolyte replacement per protocol. IV lasix 20 mg ordered today 7. GI/DVT prophylaxis 8. Pain control per medication regimen. Avoid narcotics 9. Insulin management per primary care service. Patient is not diabetic, preoperative hemoglobin A1c 5.8% 10. Strict accurate intake and output. Daily weights. Patient to shower daily 11. Discharge planning in progress. Anticipate discharge to inpatient rehab today 12. More recommendations to follow
[2021-12-14] MEDS ORDERED: POTASSIUM BICARBONATE/CIT AC 20 MEQ TABLET.EFF PO ONE (08:00)
[2021-12-14] MEDS: CHOLECALCIFEROL 25 MCG (1000 IU) TABLET PO SCH (08:49)
[2021-12-14] MEDS: MAGNESIUM SULFATE-D5W PMX 1 GM in DEXTROSE/WATER 1 100ML.BAG IVPB SCH ×2 (08:49→11:13)
[2021-12-14] MEDS: ATORVASTATIN 40 MG TAB PO SCH (08:49)
[2021-12-14] MEDS: AMIODARONE 200 MG TAB PO SCH (08:49)
[2021-12-14] MEDS: MULTIVITAMINS, THERA 1 EACH TAB PO SCH (08:50)
[2021-12-14] MEDS: ASPIRIN 325 MG TAB PO SCH (08:50)
[2021-12-14] MEDS: METOPROLOL TARTRATE 50 MG TAB PO SCH (08:50)
[2021-12-14] MEDS: LOSARTAN 50 MG TAB PO SCH (08:50)
[2021-12-14] MEDS: ENOXAPARIN 40 MG/0.4 ML SYRINGE SQ SCH (08:50)
[2021-12-14] MEDS: CLOPIDOGREL 75 MG TAB PO SCH (08:50)
[2021-12-14] MEDS: MUPIROCIN 2% OINT 22 GM TUBE NASAL SCH (09:20)
--- NOTE | 2021-12-14 10:54 | P.DS ---
Providers Date of admission: 12/07/21 05:42 Expected date of discharge: 12/14/21 Attending physician: Delroy Moyer Consults: 12/07/21 15:31 Consult Physician Routine Consulting Provider: Rut Ibarra Consult Reason/Comments: Hvac Residential Service Technician Consult: post cardiac surgery Do you want consulting provider notified?: Yes Consult Physician Routine Consulting Provider: Severino Solis Consult Reason/Comments: med mgmt Do you want consulting provider notified?: Yes Consult Physician Routine Consulting Provider: Keaton Mathis Consult Reason/Comments: Urgent Care Technician Consult: post cardiac surgery Do you want consulting provider notified?: Yes 12/12/21 08:54 Consult Physician Routine Consulting Provider: Jaylen Chiu Consult Reason/Comments: Inpatient rehab at discharge Do you want consulting provider notified?: Yes Primary care physician: Severino Solis [facility] Course: FINAL DIAGNOSIS: 1. Triple-vessel diffuse calcific coronary artery disease 2. Preserved systolic function 3. Hypertension 4. Hyperlipidemia, cholesterol 269, LDL 171, triglycerides 245 5. Esophageal stricture with serial dilatation 6. Previous tobacco dependence, preoperative FEV1 77% of predicted 7. Peripheral arterial disease, right lower extremity TORITO 0.83 8. Postoperative acute blood loss anemia, expected 9. Medical debility PRINCIPAL PROCEDURE: 1. Quadruple coronary artery bypass grafting using the left internal mammary artery to the left anterior descending artery, reverse saphenous vein graft from the aorta to the first obtuse marginal artery, reverse saphenous vein graft from the previous vein graft and an anastomosis to the diagonal artery, reverse saphenous vein graft from the aorta to the posterior descending artery 2. Exclusion of the left atrial appendage using a 35 mm AtriClip 3. Endoscopic harvesting of the left greater saphenous vein 4. Intraoperative graft flow measurements using the [facility] [employer] system 5. Intraoperative transesophageal echocardiogram and epi-aortic scanning HISTORY OF PRESENT ILLNESS: This is an 81-year-old female who follows on an outpatient basis with Dr. Solis for primary care and Dr. Velez for cardiology. She has been experiencing fatigue, shortness of breath, chest pressure, and occasional lightheadedness. She underwent stress testing demonstrating evidence of stress-induced ischemia involving the lateral wall. She was recommended to undergo heart catheterization which demonstrated heavily calcified severe triple vessel coronary artery disease with diffusely diseased left anterior descending coronary artery with 80-90% stenosis to the mid segment, 95-99% stenosis to the proximal circumflex coronary artery, 90% stenosis to the ostium of the obtuse marginal coronary artery, totally occluded posterolateral branch of the right coronary artery and 90% stenosis to the PDA. Consultation was placed to Dr. Moyer from cardiothoracic surgery. She was recommended to undergo coronary artery bypass surgery. The usual perioperative course was discussed in detail with the patient and her family, all risks and benefits were explained, all questions were answered, and consent was obtained to proceed with surgery. The patient was discharged to home from the [employer] [employer] [facility] on maximal medical therapy to return as an outpatient for surgery at the earliest possible date. HOSPITAL COURSE: The patient was brought to the hospital on 12/07/21, taken to the preoperative area, prepared in the usual fashion, and subsequently taken to the operating room where Dr. Moyer performed four-vessel CABG. Upon completion of surgery the patient was transferred to the cardiovascular intensive care unit where she was recovered and monitored hemodynamically. She was extubated, all lines, tubes, and drips were discontinued when appropriate, and transfer orders were placed for 3 S. cardiac stepdown unit, however there was no bed availability and the patient remained on ICU as a stepdown patient until discharge. Her oxygen was titrated down, she continued to work with physical and occupational therapy, she was tolerating oral diet, her pain was controlled, and she was ready to be discharged to [facility] inpatient rehab on postoperative day #7. She received written and verbal instruction regarding her medications, activity restrictions, signs and symptoms requiring physician notification, and follow-up appointments. Patient Condition at Discharge: Stable Plan - Discharge Summary Discharge Rx Participant: No New Discharge Prescriptions: New Amiodarone [Cordarone] 400 mg PO BID tab Losartan [Cozaar] 100 mg PO DAILY tab Ipratropium-Albuterol Nebulize [Duoneb 0.5 mg-3 mg/3 ml Soln] 3 ml INHALATION RT-Q2H PRN each PRN Reason: Shortness Of Breath Or Wheezing Magnesium Hydroxide [Milk of Magnesia Concentrate] 2,400 mg PO BID PRN ml PRN Reason: Constipation Aspirin 325 mg PO DAILY tab Ipratropium-Albuterol Nebulize [Duoneb 0.5 mg-3 mg/3 ml Soln] 3 ml INHALATION RT-QID each Furosemide [Lasix] 40 mg PO DAILY #7 tablet Atorvastatin [Lipitor] 40 mg PO DAILY tab Metoprolol Tartrate [Lopressor] 50 mg PO BID tab Enoxaparin [Lovenox] 40 mg SQ DAILY each Clopidogrel [Plavix] 75 mg PO DAILY tab Potassium Chloride Oral Liquid 20 meq PO DAILY 7 Days ml Sennosides-Docusate Sodium [Senokot-S] 2 each PO HS PRN tab PRN Reason: Constipation Acetaminophen Tab [Tylenol] 1,000 mg PO Q6HR PRN tab PRN Reason: Fever and/ or Mild Pain Continue Cholecalciferol [Vitamin D3 (25 Mcg = 1000 Iu)] 50 mcg PO DAILY Levothyroxine Sodium 25 mcg PO DAILY Ibuprofen [Motrin Ib] 200 - 400 mg PO Q8H PRN PRN Reason: Pain Pantoprazole [Protonix] 40 mg PO BID Multivit-Min/Iron/Folic/Lutein [Centrum Silver Women Tablet] 1 each PO DAILY Lidocaine 5% Patch [Lidoderm 5% Patch] 1 patch TOPICAL DAILY PRN 30 Days #30 patch PRN Reason: Pain Mirabegron [Myrbetriq] 25 mg PO DAILY Discontinued Metoprolol Succinate (ER) [Toprol XL] 25 mg PO DAILY Aspirin [Adult Low Dose Aspirin EC] 81 mg PO DAILY Sucralfate [Carafate] 1 gm PO QID Cannabidiol (Cbd) [Epidiolex] 1 dose TOPICAL DAILY PRN PRN Reason: Pain Isosorbide Mononitrate ER [Imdur] 30 mg PO DAILY #90 tab Mupirocin 2% Oint [Bactroban 2% Oint] 1 applic NASAL BID 5 Days #22 gm Discharge Medication List Cholecalciferol [Vitamin D3 (25 Mcg = 1000 Iu)] 50 mcg PO DAILY 05/03/15 [ History] Levothyroxine Sodium 25 mcg PO DAILY 10/01/19 [History] Ibuprofen [Motrin Ib] 200 - 400 mg PO Q8H PRN 02/09/21 [History] Pantoprazole [Protonix] 40 mg PO BID 06/22/21 [History] Mirabegron [Myrbetriq] 25 mg PO DAILY 11/27/21 [History] Multivit-Min/Iron/Folic/Lutein [Centrum Silver Women Tablet] 1 each PO DAILY 11/27/21 [History] Acetaminophen Tab [Tylenol] 1,000 mg PO Q6HR PRN tab 12/14/21 [Rx] Amiodarone [Cordarone] 400 mg PO BID tab 12/14/21 [Rx] Aspirin 325 mg PO DAILY tab 12/14/21 [Rx] Atorvastatin [Lipitor] 40 mg PO DAILY tab 12/14/21 [Rx] Clopidogrel [Plavix] 75 mg PO DAILY tab 12/14/21 [Rx] Enoxaparin [Lovenox] 40 mg SQ DAILY each 12/14/21 [Rx] Furosemide [Lasix] 40 mg PO DAILY #7 tablet 12/14/21 [Rx] Ipratropium-Albuterol Nebulize [Duoneb 0.5 mg-3 mg/3 ml Soln] 3 ml INHALATION RT-Q2H PRN each 12/14/21 [Rx] Ipratropium-Albuterol Nebulize [Duoneb 0.5 mg-3 mg/3 ml Soln] 3 ml INHALATION RT-QID each 12/14/21 [Rx] Lidocaine 5% Patch [Lidoderm 5% Patch] 1 patch TOPICAL DAILY PRN 30 Days #30 patch 12/14/21 [Rx] Losartan [Cozaar] 100 mg PO DAILY tab 12/14/21 [Rx] Magnesium Hydroxide [Milk of Magnesia Concentrate] 2,400 mg PO BID PRN ml 12/14/21 [Rx] Metoprolol Tartrate [Lopressor] 50 mg PO BID tab 12/14/21 [Rx] Potassium Chloride Oral Liquid 20 meq PO DAILY 7 Days ml 12/14/21 [Rx] Sennosides-Docusate Sodium [Senokot-S] 2 each PO HS PRN tab 12/14/21 [Rx] Follow up Appointment(s)/Referral(s): Rut Ibarra MD [STAFF PHYSICIAN] - 1 Week (Please make follow up appointment upon discgharge from rehab) Raúl Velez MD [STAFF PHYSICIAN] - 1 Week (Please make follow up appointment upon discgharge from rehab) Rehab Wong LANDAVERDE,Cardiac [NON-STAFF] - 4 Weeks (You will receive a phone call in approximately 4-6 weeks for evaluation for cardiac rehab) Delroy Moyer MD [STAFF PHYSICIAN] - 01/05/22 10:45 am Will,Severino, MD [Primary Care Provider] - 1 Week (Please make follow up appointment upon discgharge from rehab) Ambulatory/Diagnostic Orders: Complete Blood Count w/diff [LAB.AMB] Location: None Selected Comprehensive Metabolic Panel [LAB.AMB] Location: None Selected Activity/Diet/Wound Care/Special Instructions: CONSULTATIONS AT [facility] INPATIENT REHAB: Dr. Velez for cardiology Dr. Ibarra for pulmonology Dr. Solis for internal medicine DISCHARGE INSTRUCTIONS: 1. No driving for 4 weeks, or until physician gives their ok. 2. The patient should sleep in their own bed, no medical bed needed. 3. Stairs are not an issue. If the bedroom is upstairs, it is advised that the patient go up at night and down in the morning for the first week. Go slowly, using handrail and take 1 step at a time. 4. LUCINDA hose are to be worn for 30 days or until physician discontinues. 5. Heart hugger is to be worn 100% of the time until physician discontinues.(except when showering) 6. No lifting, pushing, or pulling more than 10 pounds for 12 weeks. The phys ician will advise of any restriction changes. 7. The patient is expected to continue the prescribed walking program. 8. Continue pain control per as needed orders. 9. Continue with incentive spirometry and splinting/heart hugger until otherwise directed by the physician. 10. Must shower daily using liquid antibacterial soap and a separate white washcloth for each individual incision. 11. Routine sternal incision care. No powders, lotions, ointments on incisions. No dressings are necessary on incisions unless they are draining. Dermabond tape is to remain on sternal incision until surgeon follow-up. 12. Please call surgeon/INSTRUMENT/CONTROL TECHNICIAN for temp greater than 101 F or purulent drainage from incisions. 13. You should weigh yourself daily, record and bring log with you to follow up appointments. 14. All prescriptions given by surgeon for 30 days. Refills need to be filled through bacteriologist medical/primary care physician. 15. A Red armband has been placed on the patient. It should be worn for 30 days post surgery and will be removed by the cardiac surgeons. If an ER visit is necessary, please make sure the number on the Red armband is called. 16. You have been referred to and are expected to begin Cardiac Rehab in approximately 4-6 weeks. [facility]/HOME HEALTH SERVICES TO PROVIDE: RN SKILLED HOME CARE SERVICES FOR POST-OP SURGICAL PATIENTS WITH THE FOLLOWING: Coronary Artery Bypass Surgery (CABG), Mitral Valve Replacement/Repair ( MVR), Aortic Valve Replacement/Repair (AVR) RN TO CONTINUE EDUCATION FROM ``ROAD TO A HEALTH HEART PATIENT EDUCATION MANUAL (GIVEN TO PATIENT IN THE HOSPITAL) MEDICATION RECONCILIATION WITH EDUCATION NEEDED ON FIRST HOME VISIT EMPHASIZE IMPORTANCE OF WEARING BREAST SUPPORT/HEART HUGGER ENCOURAGE USE OF INCENTIVE SPIROMETER 10 X EVERY HOUR WHILE AWAKE ENCOURAGE UTILIZATION OF LOWER EXTREMITY COMPRESSION STOCKINGS/LUCINDA HOSE and ELEVATE LEGS ABOVE LEVEL OF HEART WHILE AT REST. ENCOURAGE AMBULATION 3-5x/day INCREASING TOLERATES, WHILE AVOIDING EXTREMES IN TEMPERATURE FREQUENCY: RN TO OPEN THE PATIENT WITHIN 24 HOURS OF DISCHARGE FROM INPATIENT REHAB WITH TELEHEALTH INSTALLED AT [facility], RN TO VISIT 2-3 X A WEEK FOR 4 WEEKS ESTABLISHED BY PATIENT NEEDS. LABORATORY: CBC, CMP TO BE DRAWN ON THE THIRD DAY HOME FROM REHAB, (RAN STAT) FAX RESULTS TO [phone]. TELEHEALTH PARAMETERS: WEIGHT: NOTIFY MD OF WEIGHT GAIN OF 2 LBS IN 24 HOURS OR 5 LBS IN ONE WEEK HR: NOTIFY MD OF HR <55 BPM OR HR>100 BPM BP: NOTIFY MD IF BP <90/55 OR BP>140/100 O2 SAT: NOTIFY MD IF PO2<93% ON ROOM AIR SEND TELEHEALTH REPORT TO CRIMINAL PROFILER AND CARDIOVASCULAR SURGEON THE FIRST WEEK OF CARE AND THEN BI-WEEKLY. PLEASE ADDITIONALLY COMMUNICATE ANY ABNORMALS AND NEW FINDINGS TO THE SURGEONS OFFICE. Discharge Disposition: DC/TRNS INTERMEDIATE CARE FAC
[2021-12-14 11:13] LABS: Glucose,Whole Blood 117 mg/dL (70-110)
[2021-12-14 13:26] VITALS: BP 118/70; PULSE 67; RESP 65; TEMP 98.2
--- NOTE | 2021-12-14 16:53 | P.PN ---
Subjective Progress Note Date: 12/14/21 Sandra Nichole, is an 80-year-old female patient who was found to have severe triple coronary artery disease. Patient presented for an elective coronary artery bypass graft surgery on 12/07/[address] Moyer. Patient has a past medical history of GERD, chronic back pain, GI bleed, osteoarthritis and di verticular bleed. Patient underwent quadruple coronary artery bypass graft surgery on 12/07/2021 and was transferred to the intensive care unit postoperatively. 12/11/2021 patient is currently postop day 4. Patient is alert and oriented 3 sitting up in chair. Patient remains in the intensive care unit [place] remains in place patient remains on IV Primacor and cleviprex drips. Patient also remains with left and right pleural chest tubes. Patient currently on 2 L nasal cannula incentive spirometer at bedside. On 12/12/2021 patient is currently postop day 5. Patient is alert and oriented 3 currently sitting up in chair. Dr. Rogers has been consulted for possible inpatient rehab. Patient denies any chest pain or shortness breath. Patient denies nausea vomiting or diarrhea. Patient denies any urinary burning or frequency 12/13/2021 patient is alert and oriented 3. Patient is postop day 6. Patient has been ordered out of the intensive care unit. Hemoglobin 9.0 patient cur rently on room air at this time patient is a candidate for inpatient rehab On 12/14/2021 patient is alert and oriented 3 in no apparent distress there is no fever or chills no headache or dizziness no chest pain no shortness of breath no cough no nausea or vomiting no abdominal pain no diarrhea no blood in the stools no burning with urination no frequency or urgency and no hematuria, she is scheduled for discharge today she was readmitted to [facility] rehab. Objective - Vital Signs Vital signs: Vital Signs Temp 98.2 F 12/14/21 12:00 Pulse 67 12/14/21 12:00 Resp 65 H 12/14/21 12:00 BP 118/70 12/14/21 12:00 Pulse Ox 95 12/14/21 14:00 FiO2 95 12/14/21 12:00 Intake & Output 12/13/21 12/14/21 12/14/21 18:59 06:59 18:59 Intake Total 540 440 Output Total 1250 700 600 Balance -1250 -160 -160 Weight 68 kg Intake: Intake, IV Titration 200 Amount Magnesium Sulfate-D5w Pmx 200 1 gm In Dextrose/Water 1 100ml.bag @ 100 mls/hr IVPB Q1H [facility] Rx#: [id number] Oral 540 240 Output: Urine 950 700 600 Urine/Stool Mix 300 Other: Voiding Method Bedside Commode Bedside Commode # Voids 1 # Bowel Movements 1 ABP, PAP, CO, CI - Last Documented Arterial Blood Pressure 112/47 Pulmonary Artery Pressure 20/4 Cardiac Output 3.4 Cardiac Index 2 - Exam Head normocephalic Neck supple Lungs clear to auscultation bilaterally no wheezing or crackles. chest tubes in place Heart regular rate and rhythm S1-S2, no rub or gallop Abdomen is soft nontender nondistended positive bowel sounds no hepatosplenomegaly Extremities no edema Neuro alert and orientated to 3 - Labs CBC & Chem 7: 12/14/21 06:28 12/14/21 06:28 Labs: Abnormal Lab Results - Last 24 Hours (Table) 12/13/21 12/14/21 12/14/21 Range/Units 20:05 06:28 06:28 RBC 3.02 L (3.80-5.40) m/uL Hgb 9.1 L (11.4-16.0) gm/dL Hct 28.9 L (34.0-46.0) % Sodium 132 L (137-145) mmol/L POC Glucose (mg/dL) 164 H (70-110) mg/dL Calcium 7.6 L (8.4-10.2) mg/dL 12/14/21 Range/Units 11:11 RBC (3.80-5.40) m/uL Hgb (11.4-16.0) gm/dL Hct (34.0-46.0) % Sodium (137-145) mmol/L POC Glucose (mg/dL) 117 H (70-110) mg/dL Calcium (8.4-10.2) mg/dL Assessment and Plan Assessment: 1. Coronary artery disease s/p quadruple coronary artery past graft surgery on 12/07/[address] Moyer 2. History of essential hypertension 3. History of GI bleed 4. History of GERD 5. History of hypothyroidism 6. History of chronic lower back pain Discharge planning to I[facility]
== END 2021-12-14 16:10 | DRG 236 ==
LOC: 2ORMAIN 05:42 → 2SICU 15:17
PROVIDERS: ADMIT Surgery; ATTEND Surgery
PROC: 021209W Bypass Coronary Artery, Three Arteries from Aorta with Autologous Venous Tissue, Open Approach (ICD-10-PCS; principal; 2021-12-07 08:00)
PROC: 02L70CK Occlusion of Left Atrial Appendage with Extraluminal Device, Open Approach (ICD-10-PCS; principal; 2021-12-07 08:00)
PROC: 06BQ4ZZ Excision of Left Saphenous Vein, Percutaneous Endoscopic Approach (ICD-10-PCS; principal; 2021-12-07 08:00)
PROC: 02100Z9 Bypass Coronary Artery, One Artery from Left Internal Mammary, Open Approach (ICD-10-PCS; principal; 2021-12-07 08:00)
PROC: B246ZZ4 Ultrasonography of Right and Left Heart, Transesophageal (ICD-10-PCS; principal; 2021-12-07 08:00)
PROC: 4A1305C Monitoring of Arterial Flow, Coronary, Open Approach (ICD-10-PCS; principal; 2021-12-07 08:00)
PROC: 5A1221Z Performance of Cardiac Output, Continuous (ICD-10-PCS; principal; 2021-12-07 08:00)
PROC: 05HB33Z Insertion of Infusion Device into Right Basilic Vein, Percutaneous Approach (ICD-10-PCS; 2021-12-11 21:00)
DX: I25.10 Atherosclerotic heart disease of native coronary artery without angina pectoris (principal); J90 Pleural effusion, not elsewhere classified; D62 Acute posthemorrhagic anemia; J98.11 Atelectasis; I42.9 Cardiomyopathy, unspecified; I73.9 Peripheral vascular disease, unspecified; Z20.822 Contact with and (suspected) exposure to COVID-19; I25.82 Chronic total occlusion of coronary artery; I11.9 Hypertensive heart disease without heart failure; I25.84 Coronary atherosclerosis due to calcified coronary lesion; I08.0 Rheumatic disorders of both mitral and aortic valves; E03.9 Hypothyroidism, unspecified; E78.5 Hyperlipidemia, unspecified; K44.9 Diaphragmatic hernia without obstruction or gangrene; R35.0 Frequency of micturition; M54.2 Cervicalgia; N32.81 Overactive bladder; G89.29 Other chronic pain; M51.36 Other intervertebral disc degeneration, lumbar region; M47.816 Spondylosis without myelopathy or radiculopathy, lumbar region; K21.9 Gastro-esophageal reflux disease without esophagitis; M81.0 Age-related osteoporosis without current pathological fracture; R13.10 Dysphagia, unspecified; K57.90 Diverticulosis of intestine, part unspecified, without perforation or abscess without bleeding; M19.90 Unspecified osteoarthritis, unspecified site; Z79.82 Long term (current) use of aspirin; Z79.890 Hormone replacement therapy; Z79.899 Other long term (current) drug therapy; Z87.891 Personal history of nicotine dependence; Z98.1 Arthrodesis status; Z87.440 Personal history of urinary (tract) infections; Z96.653 Presence of artificial knee joint, bilateral; Z71.3 Dietary counseling and surveillance; Z88.5 Allergy status to narcotic agent; Z88.2 Allergy status to sulfonamides; Z91.048 Other nonmedicinal substance allergy status
CPT/HCPCS: 36410; 71045; 71046; 76937; 80048; 80053; 82330; 82805; 83735; 84132; 85025; 85027; 85520; 85610; 85730; 86850; 86891; 86900; 86901; 86920; 87635; 94640; 94760

== ENCOUNTER → 2022-02-26 | Outpatient (CLI) | payer MEDICARE, BC ==
[2022-02-26 13:49] VITALS: BP 93/65; PULSE 72; RESP 16; TEMP 97.9
--- NOTE | 2022-02-26 15:39 | P.PAINPG ---
PQRS Measure Charge Sheet Comment: A 81 yr old female with a history of severe and chronic low back pain secondary to lumbar DDD and spondylosis with facet arthropathy without myelopathy presents today for LBP evaluation. Pt states she experienced 80% pain relief x 5 mo s/p procedure. Pain level is currently at 8/10 in intensity, constant, achy in character without radiation. Pain is provoked by bending, twisting. Pain is alleviated with PT years ago, massage therapy weekly x 1 mo 1 yr ago, heat, ice, meds (Tyl, Ibu), topicals, repositioning and rest. Interventional pain procedures completed include BL RFA L3-L5 x2, T6-T8 x1. Patient is currently on Tylenol, Ibuprofen Patient denies any side effects of the medication(s), denies excessive drowsiness or sleepiness, denies suicidal ideation and reports that the current pain medication is helping to control the pain and improve activities of daily living. Patient denies any motor or sensory deficits. Patient denies any fever or night sweats, denies any change in the bowel movements or urination. Physical Examination: -Constitutional: Cooperative. Not in acute distress . - Neurologic: Cranial nerve II to XII intact. No focal neurological deficits. - Psychatric: Alert & oriented x 3. Matching mood & appropriate affect. Judgment and insight intact. - Musculoskeletal: Cervical spine: Muscle bulk/ tone/ strength in the bilateral upper extremities normal Vertebral body tenderness to palpation over Spurling test positive Distraction test positive Facet loading test positive Thoracic spine Muscle bulk / tone/ strength in the bilateral paraspinal muscles normal Vertebral body tender to palpation over Facet loading test positive Lumbar spine: Motor bulk/ tone/ strength lower extremities , thigh and legs : 5/5 Deep tendon reflexes : Normal Knee Jerk. Normal Ankle Jerk . Vertebral body tenderness to palpation over Lumbar Facet Loading Test positive jump reflex over BL L4-L5, L5-S1 facets Straight Leg Raise: positive at 30 degrees right side/ left side Gaenslen's Test positive Sacral spine : Severe tenderness over the Sacroiliac joint: right side / left side Range of motion: Flexion of the lumbar spine <60 degrees Range of motion: Extension of the lumbar spine <20 degrees Gaenslen's Test positive Casey test: positive right side / left side Thigh Thrust Test Sacral Thrust Test Assessment and plan: Chronic low back pain secondary to lumbar DDD, spondylosis with facet arthropathy without myelopathy Recommendation of BL RFA L4-L5, L5-S1. Pt exhibited sufficient and optim al pain relief w prior RFA procedure in July 2021. Risks, benefits of procedure discussed and pt verbalized understanding. Admits to anticoagulant use or medical history of diabetes. Protocol for discontinuatin/ continuation of medications mac procedure discussed. Medical clearance for Plavix faxed to pt's prescribing physician. Chronic and current use of high-risk medication (Opioids). The patient was counseled about risk of opioid use, psychological risk associated with opioids and was orally counseled to not overuse , divert or sell medications. Pt is to store medication in a safe location. The patient is counseled against driving while using narcotic medications and also not to use alcohol or any illicit recreational drugs. Patient verbalized understanding that the lack of compliance will result in failure to renew narcotic prescription(s) as well as possible discharge from the clinic Diagnoses, prognosis and treatment options including but not limited to physical therapy, surgical interventions, interventional therapies and medication management including narcotics and adjuvant medication were discussed. All patient questions answered MAPS reviewed and it was appropriate. Prescription refill for Fentanyl 25mcg/hr #10 w 1 RF. Opiate and Narcotic agreement signed today 02/26/22. I have spent less than 30 minutes on patient care today. Dr Holland was available by phone for the evaluation of this patient. The time was used to review the medical records including relevant urine studies and Prescription history (MAPs), review of the available imaging, evaluation and examination of the patient, coordination of care with the medical staff and if applicable referring physicians, as well as creation of the medical record - Pain Location Bilateral Lower Back Non-Pharmacological Interventions: Heat, Ice, Inactivity, Massage, Physical Therapy Pharmacological Interventions: Block, Epidural, PRN Medication, Topical Medication PQRS Narrative: Smoking Status Former smoker Hx Alcohol Use (MH) Yes: rare Home Medications: Ambulatory Orders Cholecalciferol [Vitamin D3 (25 Mcg = 1000 Iu)] 50 mcg PO DAILY 05/03/15 Levothyroxine Sodium 25 mcg PO DAILY 10/01/19 Ibuprofen [Motrin Ib] 200 - 400 mg PO Q8H PRN 02/09/21 Pantoprazole [Protonix] 40 mg PO BID 06/22/21 Mirabegron [Myrbetriq] 25 mg PO DAILY 11/27/21 Multivit-Min/Iron/Folic/Lutein [Centrum Silver Women Tablet] 1 each PO DAILY 11/27/21 Acetaminophen Tab [Tylenol] 1,000 mg PO Q6HR PRN tab 12/14/21 Amiodarone [Cordarone] 400 mg PO BID tab 12/14/21 Aspirin 325 mg PO DAILY tab 12/14/21 Atorvastatin [Lipitor] 40 mg PO DAILY tab 12/14/21 Clopidogrel [Plavix] 75 mg PO DAILY tab 12/14/21 Enoxaparin [Lovenox] 40 mg SQ DAILY each 12/14/21 Furosemide [Lasix] 40 mg PO DAILY #7 tablet 12/14/21 Ipratropium-Albuterol Nebulize [Duoneb 0.5 mg-3 mg/3 ml Soln] 3 ml INHALATION RT-Q2H PRN each 12/14/21 Ipratropium-Albuterol Nebulize [Duoneb 0.5 mg-3 mg/3 ml Soln] 3 ml INHALATION RT-QID each 12/14/21 Lidocaine 5% Patch [Lidoderm 5% Patch] 1 patch TOPICAL DAILY PRN 30 Days #30 patch 12/14/21 Losartan [Cozaar] 100 mg PO DAILY tab 12/14/21 Magnesium Hydroxide [Milk of Magnesia Concentrate] 2,400 mg PO BID PRN ml 12/14/21 Metoprolol Tartrate [Lopressor] 50 mg PO BID tab 12/14/21 Potassium Chloride Oral Liquid 20 meq PO DAILY 7 Days ml 12/14/21 Sennosides-Docusate Sodium [Senokot-S] 2 each PO HS PRN tab 12/14/21 fentaNYL 25MCG/HR PATCH [Duragesic 25MCG/HR] 1 patch TRANSDERM Q72H 30 Days #10 patch 02/26/22 fentaNYL 25MCG/HR PATCH [Duragesic 25MCG/HR] 25 mcg TRANSDERM Q72H 30 Days #10 patch 02/26/22 Controlled Substance Measures - Controlled Substance Measures Is patient prescribed a controlled substance at discharge?: Yes When asked, does pt state using other controlled substances?: No If prescribed controlled substance>3 days was MAPS reviewed?: Yes If Rx opioid, was Start Talking consent form obtained?: Yes Was information provided regarding opioid addiction?: Yes
== END ==
LOC: PNWHC3 12:53
PROVIDERS: ATTEND Specialist
DX: M47.816 Spondylosis without myelopathy or radiculopathy, lumbar region (principal); M51.36 Other intervertebral disc degeneration, lumbar region; G89.29 Other chronic pain; Z79.01 Long term (current) use of anticoagulants; E11.9 Type 2 diabetes mellitus without complications; Z79.891 Long term (current) use of opiate analgesic; Z88.2 Allergy status to sulfonamides; Z91.048 Other nonmedicinal substance allergy status; Z88.5 Allergy status to narcotic agent; Z87.891 Personal history of nicotine dependence
CPT/HCPCS: 99211

== ENCOUNTER 2022-03-23 06:38 | Day surgery (SDC) | payer MEDICARE, BC ==
[2022-03-21 13:59] VITALS: BMI 25.3
[~2022-03-23 06:38] MED LIST changes: -ALBUMIN HUMAN 25% 50 ML IV ONE; -ALBUMIN HUMAN 5% 500 ML IVPB ONE; -ASPIRIN 325 MG TAB PO ONE; -ATORVASTATIN 10 MG TAB PO ONE; -CALCIUM CHLORIDE 100 MG/ML 10 ML SYRINGE IV ONE; -CHLORHEXIDINE GLUCONATE 15 ML CUP MUCOUS MEM ONE; -CLEVIDIPINE BUTYRATE 25 MG in EMPTY BAG 1 BAG IV ONE; -ELECTROLYTE-A SOLUTION 1,000 ML with POTASSIUM CHLORIDE 100 MEQ, MAGNESIUM SULFATE 16 M... IV ONE; -ELECTROLYTE-A SOLUTION 1,000 ML with POTASSIUM CHLORIDE 40 MEQ, MAGNESIUM SULFATE 16 ME... IV ONE; -HEPARIN SODIUM 1,000 UN/ML (10ML VL) IV ONE; -HEPARIN SODIUM,PORCINE 5,000 UNIT in SODIUM CHLORIDE 0.9% 500 ML 500 ML IV ONE; -INSULIN REGULAR 100 UNIT in SODIUM CHLORIDE 0.9% 100 ML IV ONE; -LACTATED RINGERS 1,000 ML IV ONE; +LACTATED RINGERS 1,000 ML IV SCH; +LIDOCAINE 1% (10MG/ML) FOR IV START INTRADERMA PRN; -MAGNESIUM SULFATE 16.24 MEQ in EMPTY SYRINGE 1 SYR IV ONE; -MANNITOL 25% 12.5 GM/50 ML VIAL IV ONE; -METOPROLOL TARTRATE 12.5 MG TAB PO ONE; -NITROGLYCERIN-D5W PMX 25 MG/250 ML BTL IV ONE; -NITROGLYCERIN-D5W PMX 50 MG in DEXTROSE/WATER 1 250ML.BAG IV ONE; -NOREPINEPHRINE 4 MG in SODIUM CHLORIDE 0.9% 250 ML IV ONE; -PAPAVERINE 360 MG in SODIUM CHLORIDE 0.9% 90 ML IV ONE; -PHENYLEPHRINE 10 MG/ML VIAL IV ONE; -PHENYLEPHRINE 40 MG in SODIUM CHLORIDE 0.9% 250 ML IV ONE; -PROTAMINE SULFATE 10 MG/ML 25 ML VIAL IV ONE; -PROTAMINE SULFATE 250 MG in EMPTY BAG 1 BAG IV ONE; -SODIUM BICARB 8.4% 50 ML SYR (1 MEQ/ML) IV ONE; -SODIUM CHLORIDE 0.9% 1,000 ML IV ONE; -TRANEXAMIC ACID 2,000 MG in SODIUM CHLORIDE 0.9% 80 ML IV ONE; -ceFAZolin 1,000 MG in SODIUM CHLORIDE 0.9% IRRIGATIO 1,000 ML IRRIGATION ONE; -propofoL 1,000 MG/100 ML VIAL IV ONE
[2022-03-23 07:07] VITALS: RESP 20; TEMP 97.1
[2022-03-23] MEDS ORDERED: fentaNYL (PF) 50 MCG/ML 2 ML AMP ONE (07:30)
[2022-03-23] MEDS ORDERED: methylPREDNISolone ACETATE 40 MG/ML 1 ML VIAL ONE (07:30)
[2022-03-23] MEDS ORDERED: MIDAZOLAM 2 MG/2 ML VIAL ONE (07:30)
[2022-03-23] MEDS ORDERED: ROPIVACAINE 5 MG/ML 20 ML AMPULE ONE (07:30)
--- NOTE | 2022-03-23 08:03 | P.PCN ---
Date of Procedure: 03/23/22 Procedure(s) Performed: PREOPERATIVE DIAGNOSIS: 1-Lumbar Spondylosis with Facet Arthropathy without myelopathy. 2- Lumber degenerative disc disease. POSTOPERATIVE DIAGNOSIS: 1- Lumbar Spondylosis with Facet Arthropathy without myelopathy. 2- Lumber degenerative disc disease. PROCEDURES : Bilateral Radiofrequency thermocoagulation, L3 , L4 , and L5 medial branch, with fluoroscopic guidance (fluoroscopy images available in the radiology department) ( to denervate the facet joint at Bilateral L4-5 ,and L5-S1 levels ). ANESTHESIA: Monitered anesthesia care as per anesthesia department. EBL: Minimal PROCEDURE INDICATION: The patient with low back pain secondary to lumbar facet arthropathy who had more than 50% relief of her pain with previous diagnostic lumbar medial branch block with bupivacaine. PROCEDURE DESCRIPTION / TECHNIQUE: The patient was seen and identified in the preoperative area. Risks, benefits, complications, including but not limited to risk of infection ,bleeding , allergic reactions to the medications and no complete pain releife , and alternatives were discussed with the patient, the patient agreed to proceed with the procedure and signed the consent. IV was started. Vital signs remained stable throughout the procedure. Patient was taken to the OR and time out was completed. The patient was placed in the prone position on the procedure table. The lumber area was prepped and draped in the usual sterile fashion. . Vital signs were closely monitored during the procedure .IV sedation was used during the procedure to decrease patients anxiety. Using AP and then oblique fluoroscopy, the ``eye of the Earl dog cor responding to the connection between the superior and transverse articular processes of right L3, L4, and L5 were identified, marked, and localized with 1% lidocaine. Subsequently, a [id number] radiofrequency cannula with a 10- mm active tip was advanced guided by fluoroscopy to each of the``eyes of the Earl dog at right L3, L4, and L5. Each site then underwent sensory testing at 50 Hz and 0 to 1 volt and motor testing at 2.5 Hz and 0 to 3 volt with local stimulation, but no radicular symptoms down the legs. Thereafter each sites underwent radiofrequency thermocoagulation at 80 degrees celsius for 90 seconds after injecting 0.5 ml of PF Ropivacaine 1ml, then after the thermocoagulation done , 1 ml of the block solution containing Depo-Medrol 20 mg and 3 ml of Ropivacaine 0.5% was injected at the right L3 , L4 , and L5 , levels after negative aspiration of CSF and blood and with no paresthesias. Cannulas were retracted while injecting lidocaine 1% until the needle is out. The same procedure was repeated at the level of Left L3, L4, and L5 levels. At the end of the procedure, the skin was cleansed and bandages were applied. COMPLICATIONS: No acute complications. DISPOSITION / PLANS: The patient was placed in a supine position and transferred to the recovery area in a stable condition for observation and was discharged from the recovery room after meeting discharge criteria. Home discharge instructions given to the patient by the staff. The patient was reexamined prior to discharge. The patient will schedule a follow up in the clinic in 2-4 weeks.
[2022-03-23] MEDS ORDERED: IV FLUID CONTINUATION 1,000 ML IV ONE (08:08)
--- NOTE | 2022-03-23 08:21 | FL ---
EXAMINATION TYPE: FL guided pain mgmt statistic DATE OF EXAM: 03/23/2022 CLINICAL HISTORY: Low back pain. TECHNIQUE: Fluoroscopy. COMPARISON: None. FINDINGS: Fluoroscopic guidance was provided during pain relief procedure performed by Dr. Holland . A total of 27 seconds of fluoroscopic time was utilized during the procedure and 9 spot images are acquired. Images acquired shows needle localization at multiple levels in the lumbar spine. IMPRESSION: As Above.
[2022-03-23 08:24] VITALS: BP 107/67; PULSE 76
== END 2022-03-23 08:40 | disposition home or self-care (01) ==
LOC: ORPAIN 06:38
PROVIDERS: ATTEND Specialist
DX: M47.816 Spondylosis without myelopathy or radiculopathy, lumbar region (principal); M51.36 Other intervertebral disc degeneration, lumbar region; I10 Essential (primary) hypertension; E78.5 Hyperlipidemia, unspecified; E07.9 Disorder of thyroid, unspecified; K21.9 Gastro-esophageal reflux disease without esophagitis; K92.2 Gastrointestinal hemorrhage, unspecified; Z79.890 Hormone replacement therapy; Z79.82 Long term (current) use of aspirin; Z79.899 Other long term (current) drug therapy; Z87.891 Personal history of nicotine dependence; Z98.890 Other specified postprocedural states; Z95.1 Presence of aortocoronary bypass graft; Z88.2 Allergy status to sulfonamides; Z88.5 Allergy status to narcotic agent; Z91.048 Other nonmedicinal substance allergy status
CPT/HCPCS: 64635; 64636; J2250; J1030; J3010; J2795

== ENCOUNTER → 2022-04-25 | Outpatient (CLI) | payer MEDICARE, BC ==
[2022-04-25 11:04] VITALS: BP 130/86; PULSE 80; RESP 18; TEMP 97.8
--- NOTE | 2022-04-25 14:14 | P.PAINPG ---
PQRS Measure Charge Sheet Comment: A 81 yr old female with a history of severe and chronic LBP secondary to lumbar DDD and spondylosis with facet arthropathy without myelopathy presents today for medication refills and evaluation s/p BL RFA L3-L5. Pt states she experienced 75% pain relief x/p procedure. Pain level is provoked at 6 /10 in intensity, constant, localized in the lumbar spine, achy in character w/o shooting pain. Pain is provoked by over activity. Pain is alleviated with PT currently for her BL knees (BL Knee Replacement), heat, ice rarely, use of a cane for ambulatory assistance, medications (Tramadol), Lidoderm OTC, repositioning and rest. Tramadol causes her HAs. Lidoderm 5% was not covered by her insurance a couple of months ago so she bought/ used Lidoderm 4% which was ineffective and wants to try Lidoderm 5%. Interventional pain procedures completed include JUAN C7-T1, BL RFA L3-L5 (Mar 2022), BL RFA T7-T9 Patient is currently on Tramadol Patient denies any side effects of the medication(s), denies excessive drowsiness or sleepiness, denies suicidal ideation and reports that the current pain medication is helping to control the pain and improve activities of daily living. Patient denies any motor or sensory deficits. Patient denies any fever or night sweats, denies any change in the bowel movements or urination. Physical Examination: -Constitutional: Cooperative. Not in acute distress . - Neurologic: Cranial nerve II to XII intact. No focal neurological deficits. - Psychatric: Alert & oriented x 3. Matching mood & appropriate affect. Judgment and insight intact. - Musculoskeletal: Cervical spine: Muscle bulk/ tone/ strength in the bilateral upper extremities normal Vertebral body tenderness to palpation over Spurling test positive Distraction test positive Facet loading test positive Thoracic spine Muscle bulk / tone/ strength in the bilateral paraspinal muscles normal Vertebral body tender to palpation over Facet loading test positive Lumbar spine: Motor bulk/ tone/ strength lower extremities , thigh and legs : 5/5 Deep tendon reflexes : Normal Knee Jerk. Normal Ankle Jerk . Vertebral body tenderness to palpation over L3, L4, L5 Lumbar Facet Loading Test positive Straight Leg Raise: positive at 30 degrees right side/ left side Gaenslen's Test positive Sacral spine : Severe tenderness over the Sacroiliac joint: right side / left side Range of motion: Flexion of the lumbar spine <60 degrees Range of motion: Extension of the lumbar spine <20 degrees Gaenslen's Test positive Casey test: positive right side / left side Thigh Thrust Test Sacral Thrust Test Assessment and plan: Chronic LBP secondary to lumbar DDD, spondylosis with 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 The patient was counseled about risk of opioid use, psychological risk associated with opioids and was orally counseled to not overuse , divert or sell medications. Pt is to store medication in a safe location. The patient is counseled against driving while using narcotic medications and also not to use alcohol or any illicit recreational drugs. Patient verbalized understanding that the lack of compliance will result in failure to renew narcotic prescription(s) as well as possible discharge from the clinic Diagnoses, prognosis and treatment options including but not limited to physical therapy, surgical interventions, interventional therapies and medication management including narcotics and adjuvant medication were discussed. All patient questions answered MAPS reviewed and it was appropriate. Narcotic/ Opiate agreement signed 04/25/22. Prescription refill for [place] 5/325gm #90, Lidoderm 5% w 1 RF I have spent less than 30 minutes on patient care today. Dr Holland was available by phone for the evaluation of this patient. The time was used to review the medical records including relevant urine studies and Prescription history (MAPs), review of the available imaging, evaluation and examination of the patient, coordination of care with the medical staff and if applicable referring physicians, as well as creation of the medical record - Pain Location Bilateral Lower Back Non-Pharmacological Interventions: Heat, Ice, Inactivity, Position/Reposition, Sitting Pharmacological Interventions: Block, PRN Medication, Scheduled Medication PQRS Narrative: Smoking Status Former smoker Hx Alcohol Use (MH) Yes: rare Home Medications: Ambulatory Orders Cholecalciferol [Vitamin D3 (25 Mcg = 1000 Iu)] 50 mcg PO DAILY 05/03/15 Levothyroxine Sodium 25 mcg PO QAM 10/01/19 Ibuprofen [Motrin Ib] 200 - 400 mg PO Q8H PRN 02/09/21 Mirabegron [Myrbetriq] 25 mg PO DAILY 11/27/21 Multivit-Min/Iron/Folic/Lutein [Centrum Silver Women Tablet] 1 each PO DAILY 11/27/21 Acetaminophen Tab [Tylenol] 1,000 mg PO Q6HR PRN tab 12/14/21 Aspirin 325 mg PO DAILY tab 12/14/21 Atorvastatin [Lipitor] 40 mg PO DAILY tab 12/14/21 Furosemide [Lasix] 40 mg PO DAILY #7 tablet 12/14/21 Clopidogrel [Plavix] 0.5 tab PO DAILY 03/21/22 Effer-K 20 meq PO DAILY 03/21/22 Losartan [Cozaar] 100 mg PO QAM 03/21/22 Metoprolol Tartrate [Lopressor] 25 mg PO BID 03/21/22 HYDROcodone/APAP 5-325MG [[place] 5-325] 1 tab PO Q8HR PRN 30 Days #90 tab 04/25/22 HYDROcodone/APAP 5-325MG [[place] 5-325] 1 tab PO Q8HR PRN 30 Days #90 tab 04/25/22 Lidocaine 5% Patch [Lidoderm 5% Patch] 1 patch TOPICAL DAILY PRN 30 Days #30 patch 04/25/22 Controlled Substance Measures - Controlled Substance Measures Is patient prescribed a controlled substance at discharge?: Yes When asked, does pt state using other controlled substances?: No If prescribed controlled substance>3 days was MAPS reviewed?: Yes If Rx opioid, was Start Talking consent form obtained?: Yes If opioid is for acute pain is fill amount 7 days or less?: No Was information provided regarding opioid addiction?: Yes
== END ==
LOC: PNWHC3 09:51
PROVIDERS: ATTEND Specialist
DX: M47.816 Spondylosis without myelopathy or radiculopathy, lumbar region (principal); M51.36 Other intervertebral disc degeneration, lumbar region; Z79.891 Long term (current) use of opiate analgesic; Z91.048 Other nonmedicinal substance allergy status; Z88.2 Allergy status to sulfonamides; Z88.5 Allergy status to narcotic agent; Z87.891 Personal history of nicotine dependence
CPT/HCPCS: 99211

== ENCOUNTER → 2022-06-20 | Outpatient (CLI) | payer MEDICARE, BC ==
[2022-06-20 11:17] VITALS: BP 106/73; PULSE 87; RESP 18; TEMP 98.1
--- NOTE | 2022-06-20 14:39 | P.PAINPG ---
PQRS Measure Charge Sheet Comment: A 81 yr old femalewith a history of severe and chronic LBP secondary to lumbar DDD and spondylosis with facet arthropathy without myelopathy presents today for medication refills. Pain level is provoked at 8/10 in intensity, constant, localized in the lumbar spine, achy/ sharp in character w shooting towards the BL hips. Pain is provoked by walking/ standing for periods of 10 min or more. Pain is alleviated with PT x 6 wks which she is currently in, massage therapy weekly x 1 mo in 2021, heat, ice, medications, topicals, repositioning and rest. Patient is currently on R[place] 5/325mg #90, Ibu Patient denies any side effects of the medication(s), denies excessive drowsiness or sleepiness, denies suicidal ideation and reports that the current pain medication is helping to control the pain and improve activities of daily living. Patient denies any motor or sensory deficits. Patient denies any fever or night sweats, denies any change in the bowel movements or urination. Physical Examination: -Constitutional: Cooperative. Not in acute distress . - Neurologic: Cranial nerve II to XII intact. No focal neurological deficits. - Psychatric: Alert & oriented x 3. Matching mood & appropriate affect. Judgment and insight intact. - Musculoskeletal: Cervical spine: Muscle bulk/ tone/ strength in the bilateral upper extremities normal Vertebral body tenderness to palpation over Spurling test positive Distraction test positive Facet loading test positive TTP Thoracic spine Muscle bulk / tone/ strength in the bilateral paraspinal muscles normal Vertebral body tender to palpation over Facet loading test positive TTP Lumbar spine: Motor bulk/ tone/ strength lower extremities , thigh and legs : 5/5 Deep tendon reflexes : Normal Knee Jerk. Normal Ankle Jerk . Vertebral body tenderness to palpation over L1 Lumbar Facet Loading Test positive Straight Leg Raise: positive at 30 degrees right side/ left side Gaenslen's Test positive Sacral spine : Severe tenderness over the Sacroiliac joint: right side / left side Range of motion: Flexion of the lumbar spine <60 degrees Range of motion: Extension of the lumbar spine <20 degrees Gaenslen's Test positive right side / left side Casey test: positive right side / left side Thigh Thrust Test positive right side / left side Sacral Thrust Test positive right side / left side Assessment and plan: Chronic LBP secondary to lumbar DDD, spondylosis with facet arthropathy without myelopathy Recommendation of LESI L1-L2. May need a series of injections, up to 3 within a six-month timeframe, for optimal pain relief. Risks, benefits of procedure discussed and patient verbalized understanding. Protocol for anticoagulants continuation/ discontinuation mac procedure discussed. Chronic and current use of high-risk medication (Opioids). The patient was counseled about risk of opioid use, psychological risk associated with opioids and was orally counseled to not overuse , divert or sell medications. Pt is to store medication in a safe location. The patient is counseled against driving while using narcotic medications and also not to use alcohol or any illicit recreational drugs. Patient verbalized understanding that the lack of compliance will result in failure to renew narcotic prescription(s) as well as possible discharge from the clinic Diagnoses, prognosis and treatment options including but not limited to physical therapy, surgical interventions, interventional therapies and medication management including narcotics and adjuvant medication were discussed. All patient questions answered MAPS reviewed and it was appropriate. UDS collected today 06/20/22. Prescription refill for Lidoderm patches w 1 RF. States she does not need Ruffin at this time. I have spent less than 30 minutes on patient care today. Dr Holland was available by phone for the evaluation of this patient. The time was used to review the medical records including relevant urine studies and Prescription history (MAPs), review of the available imaging, evaluation and examination of the patient, coordination of care with the medical staff and if applicable referring physicians, as well as creation of the medical record - Pain Location Bilateral Lower Back Non-Pharmacological Interventions: Heat, Ice, Inactivity, Massage, Physical Therapy, Position/Reposition Pharmacological Interventions: Block, Epidural, Scheduled Medication, Topical Medication PQRS Narrative: Smoking Status Former smoker Hx Alcohol Use (MH) Yes: rare Home Medications: Ambulatory Orders Cholecalciferol [Vitamin D3 (25 Mcg = 1000 Iu)] 50 mcg PO DAILY 05/03/15 Levothyroxine Sodium 25 mcg PO QAM 10/01/19 Ibuprofen [Motrin Ib] 200 - 400 mg PO Q8H PRN 02/09/21 Mirabegron [Myrbetriq] 25 mg PO DAILY 11/27/21 Multivit-Min/Iron/Folic/Lutein [Centrum Silver Women Tablet] 1 each PO DAILY 11/27/21 Acetaminophen Tab [Tylenol] 1,000 mg PO Q6HR PRN tab 12/14/21 Aspirin 325 mg PO DAILY tab 12/14/21 Atorvastatin [Lipitor] 40 mg PO DAILY tab 12/14/21 Furosemide [Lasix] 40 mg PO DAILY #7 tablet 12/14/21 Clopidogrel [Plavix] 0.5 tab PO DAILY 03/21/22 Effer-K 20 meq PO DAILY 03/21/22 Losartan [Cozaar] 100 mg PO QAM 03/21/22 Metoprolol Tartrate [Lopressor] 25 mg PO BID 03/21/22 HYDROcodone/APAP 5-325MG [[place] 5-325] 1 tab PO Q8HR PRN 30 Days #90 tab 04/25/22 HYDROcodone/APAP 5-325MG [[place] 5-325] 1 tab PO Q8HR PRN 30 Days #90 tab 04/25/22 Lidocaine 5% Patch [Lidoderm 5% Patch] 1 patch TOPICAL DAILY PRN 30 Days #30 patch 06/20/22 Controlled Substance Measures - Controlled Substance Measures Is patient prescribed a controlled substance at discharge?: No
[2022-06-21 12:18] LABS: Serum Amphetamine Negative; Serum Barbiturates Negative; Serum Benzodiazepine Negative; Serum Cocaine Negative; Serum Methadone Negative; Serum Opiates Negative; Serum Phencyclidine Negative; Serum Propoxyphene Negative; Serum THC (Cannabis) Negative
== END ==
LOC: PNWHC3 10:34
PROVIDERS: ATTEND Specialist
DX: M51.36 Other intervertebral disc degeneration, lumbar region (principal); M47.816 Spondylosis without myelopathy or radiculopathy, lumbar region; G89.29 Other chronic pain; Z79.891 Long term (current) use of opiate analgesic; Z87.891 Personal history of nicotine dependence; Z79.82 Long term (current) use of aspirin; Z88.5 Allergy status to narcotic agent; Z88.2 Allergy status to sulfonamides; Z91.048 Other nonmedicinal substance allergy status; Z02.83 Encounter for blood-alcohol and blood-drug test
CPT/HCPCS: 80307; G0463; 99211

== ENCOUNTER 2022-07-17 07:26 | Day surgery (SDC) | payer MEDICARE, BC ==
[2022-07-17] MEDS ORDERED: LACTATED RINGERS 1,000 ML IV SCH (08:32)
[2022-07-17] MEDS ORDERED: LIDOCAINE 1% (10MG/ML) FOR IV START INTRADERMA PRN (08:32)
[2022-07-17 08:45] VITALS: RESP 18; TEMP 98.4
[2022-07-17] MEDS ORDERED: LACTATED RINGERS 1,000 ML IV ONE (08:49)
[2022-07-17] MEDS ORDERED: IOPAMIDOL M200 10 ML VIAL ONE (09:10)
[2022-07-17] MEDS ORDERED: methylPREDNISolone ACETATE 40 MG/ML 1 ML VIAL ONE (09:10)
[2022-07-17] MEDS ORDERED: MIDAZOLAM 2 MG/2 ML VIAL ONE (09:10)
[2022-07-17] MEDS ORDERED: fentaNYL (PF) 50 MCG/ML 2 ML AMP ONE (09:10)
--- NOTE | 2022-07-17 09:23 | P.PCN ---
Date of Procedure: 07/17/22 Procedure(s) Performed: PREOPERATIVE DIAGNOSIS: 1- Lumbar Degenerative Disc Diseases 2-Lumbar spondylosis with Facet arthropathy without myelopathy. POSTOPERATIVE DIAGNOSIS: 1-lumbar degenerative disc disease. 2-lumbar spondylosis with facet arthropathy without myelopathy. PROCEDURE 1. Lumbar epidural steroid injection under fluoroscopic guidance at the L1-2 level. (Fluoroscopy imaging was available in radiology department) 2. Lumbar epidurogram. ANESTHESIA: moderate sedation with intravenous Versed 1 mg ,and fentanyle 50 Mcg Sedation start time : 912 Sedation end time : 918 EBL: Minimal PROCEDURE INDICATION: The patient with low back pain and radiculitis symptoms unresponsive to conservative treatment. Fluoroscopy was used to optimize visualization of the needle placement and to maximize safety. PROCEDURE DESCRIPTION / TECHNIQUE: The patient was seen and identified in the preoperative area. Risks, benefits, complications including but not limited to infections ,bleeding ,allergic reaction to the medications ,nerve damage and not complete pain releife , and alternatives were discussed with the patient. The patient agreed to proceed with the procedure and signed the consent. IV was started, and vital signs were stable. Patient was taken to the OR and time out was completed. The patient was placed in the prone position on procedure table and a pillow was placed under the abdomen to reduce lumbar lordosis. The lumbosacral area was prepped and draped in the usual sterile fashion.ere closely monitored during the procedure. Conscious sedation was used during the procedure to decrease patients anxiety. Vital signs was monitered during the entire procedure. Using anterior-posterior fluoroscopy, the L1-2 interlaminar space was identified and the skin over this site was marked and then infiltrated with 1% lidocaine subcutaneously. Subsequently, a 20-gauge Tuohy epidural needle was inserted and advanced toward the epidural space using the ``Loss of resistance technique and guided by AP and lateral fluoroscopy. The correct needle position in the epidural space was verified with the injection of 2 mL of the water soluble contrast dye Isovue 200 contrast and observing an excellent epidurogram with the epidural spread of the dye, after negative aspiration for blood and CSF and in the absence of paresthesias. Again after negative aspiration, a 6 ml mixture containing 40 mg of Depo-medrol ( Preservetive Free ), and 2 ml of preservative free Normal Saline, and 2 ml of preservative free lidocaine 1% solution was injected and a washout of epidurogram was seen. Needle was withdrawn intact, skin was cleansed, and bandages were applied. COMPLICATIONS: None DISPOSITION / PLANS: The patient was placed in a supine position and transferred to the recovery area in a stable condition for observation. There was no evidence of lower extremity motor or sensory deficit after the procedure. Patient was discharged from the recovery room after meeting discharge criteria. Home discharge instructions were given to the patient by the staff. The patient was reexamined prior to discharge. The patient will schedule a follow up in the clinic in 2-4 weeks.
--- NOTE | 2022-07-17 09:33 | FL ---
EXAMINATION TYPE: FL guided pain mgmt statistic DATE OF EXAM: 07/17/2022 CLINICAL HISTORY: Low back pain. TECHNIQUE: Fluoroscopy. COMPARISON: None. FINDINGS: Fluoroscopic guidance was provided during pain relief procedure performed by Dr. Holland . A total of 3.1 seconds of fluoroscopic time was utilized during the procedure and 1 spot images ar e acquired. Single image acquired shows needle localization at L3 level off the midline. IMPRESSION: As Above.
[2022-07-17 09:51] VITALS: BP 150/64; PULSE 61
[2022-07-17] MEDS ORDERED: IV FLUID CONTINUATION 200 ML IV ONE (09:56)
== END 2022-07-17 10:00 | disposition home or self-care (01) ==
LOC: ORPAIN 07:26
PROVIDERS: ATTEND Specialist
DX: M51.16 Intervertebral disc disorders with radiculopathy, lumbar region (principal); M47.26 Other spondylosis with radiculopathy, lumbar region; I25.10 Atherosclerotic heart disease of native coronary artery without angina pectoris; Z88.2 Allergy status to sulfonamides; Z88.5 Allergy status to narcotic agent; Z88.8 Allergy status to other drugs, medicaments and biological substances; Z79.02 Long term (current) use of antithrombotics/antiplatelets
CPT/HCPCS: 62323; J2250; J1030; J3010; Q9966

== ENCOUNTER → 2022-08-15 | Outpatient (CLI) | payer MEDICARE, BC ==
[2022-08-15 12:57] VITALS: BP 112/74; PULSE 56; RESP 18; TEMP 97.6
--- NOTE | 2022-08-15 15:04 | P.PAINPG ---
PQRS Measure Charge Sheet Comment: A 81 yr old femalewith a history of severe and chronic LBP secondary to lumbar DDD and spondylosis with facet arthropathy without myelopathy presents today for medication refills. Pain level is provoked at 8/10 in intensity, constant, localized in the lumbar spine, achy/ sharp in character w shooting towards the BL hips. Pain is provoked by walking/ standing for periods of 10 min or more. Pain is alleviated with PT x 6 wks which she is currently in, massage therapy weekly x 1 mo in 2021, heat, ice, medications, topicals, repositioning and rest. Patient is currently on [place] 5/325mg #90, Ibu Patient denies any side effects of the medication(s), denies excessive drowsiness or sleepiness, denies suicidal ideation and reports that the current pain medication is helping to control the pain and improve activities of daily living. Patient denies any motor or sensory deficits. Patient denies any fever or night sweats, denies any change in the bowel movements or urination. Physical Examination: -Constitutional: Cooperative. Not in acute distress . - Neurologic: Cranial nerve II to XII intact. No focal neurological deficits. - Psychatric: Alert & oriented x 3. Matching mood & appropriate affect. Judgment and insight intact. - Musculoskeletal: Cervical spine: Muscle bulk/ tone/ strength in the bilateral upper extremities normal Vertebral body tenderness to palpation over Spurling test positive Distraction test positive Facet loading test positive TTP Thoracic spine Muscle bulk / tone/ strength in the bilateral paraspinal muscles normal Vertebral body tender to palpation over Facet loading test positive TTP Lumbar spine: Motor bulk/ tone/ strength lower extremities , thigh and legs : 5/5 Deep tendon reflexes : Normal Knee Jerk. Normal Ankle Jerk . Vertebral body tenderness to palpation over L1 Lumbar Facet Loading Test positive Straight Leg Raise: positive at 30 degrees right side/ left side Gaenslen's Test positive Sacral spine : Severe tenderness over the Sacroiliac joint: right side / left side Range of motion: Flexion of the lumbar spine <60 degrees Range of motion: Extension of the lumbar spine <20 degrees Gaenslen's Test positive right side / left side Casey test: positive right side / left side Thigh Thrust Test positive right side / left side Sacral Thrust Test positive right side / left side Assessment and plan: Chronic LBP secondary to lumbar DDD, spondylosis with facet arthropathy without myelopathy Recommendation of LESI L1-L2. May need a series of injections, up to 3 within a six-month timeframe, for optimal pain relief. Risks, benefits of procedure discussed and patient verbalized understanding. Protocol for anticoagulants continuation/ discontinuation mac procedure discussed. Chronic and current use of high-risk medication (Opioids). The patient was counseled about risk of opioid use, psychological risk associated with opioids and was orally counseled to not overuse , divert or sell medications. Pt is to store medication in a safe location. The patient is counseled against driving while using narcotic medications and also not to use alcohol or any illicit recreational drugs. Patient verbalized understanding that the lack of compliance will result in failure to renew narcotic prescription(s) as well as possible discharge from the clinic Diagnoses, prognosis and treatment options including but not limited to physical therapy, surgical interventions, interventional therapies and medication management including narcotics and adjuvant medication were discussed. All patient questions answered MAPS reviewed and it was appropriate. UDS collected today 08/15/22. Prescription refill for [place] w 1 RF. I have spent less than 30 minutes on patient care today. Dr Holland was available by phone for the evaluation of this patient. The time was used to review the medical records including relevant urine studies and Prescription history (MAPs), review of the available imaging, evaluation and examination of the patient, coordination of care with the medical staff and if applicable referring physicians, as well as creation of the medical record PQRS Narrative: Smoking Status Former smoker Narcotic Agreement Date Signed 04/25/22 Hx Alcohol Use (MH) Yes: rare Home Medications: Ambulatory Orders Cholecalciferol [Vitamin D3 (25 Mcg = 1000 Iu)] 50 mcg PO DAILY 05/03/15 Levothyroxine Sodium 25 mcg PO QAM 10/01/19 Mirabegron [Myrbetriq] 25 mg PO DAILY 11/27/21 Multivit-Min/Iron/Folic/Lutein [Centrum Silver Women Tablet] 1 each PO DAILY 11/27/21 Atorvastatin [Lipitor] 40 mg PO DAILY tab 12/14/21 Clopidogrel [Plavix] 0.5 tab PO DAILY 03/21/22 Effer-K 20 meq PO DAILY 03/21/22 Losartan [Cozaar] 25 mg PO QAM 03/21/22 Metoprolol Tartrate [Lopressor] 25 mg PO BID 03/21/22 HYDROcodone/APAP 5-325MG [[place] 5-325] 1 tab PO Q8HR PRN 30 Days #90 tab 04/25/22 Lidocaine 5% Patch [Lidoderm 5% Patch] 1 patch TOPICAL DAILY PRN 30 Days #30 patch 06/20/22 Aspirin 81 mg PO DAILY 07/12/22 Furosemide [Lasix] 20 mg PO DAILY 07/12/22 Controlled Substance Measures - Controlled Substance Measures Is patient prescribed a controlled substance at discharge?: Yes
== END ==
LOC: PNWHC3 10:48
PROVIDERS: ATTEND Specialist
DX: M51.36 Other intervertebral disc degeneration, lumbar region (principal); M47.816 Spondylosis without myelopathy or radiculopathy, lumbar region; G89.29 Other chronic pain; Z79.891 Long term (current) use of opiate analgesic; Z79.82 Long term (current) use of aspirin; Z87.891 Personal history of nicotine dependence; Z91.048 Other nonmedicinal substance allergy status; Z88.5 Allergy status to narcotic agent; Z88.2 Allergy status to sulfonamides
CPT/HCPCS: 80307; G0482; G0463; 99212

== ENCOUNTER → 2022-10-10 | Outpatient (CLI) | payer MEDICARE, BC ==
[2022-10-10 11:31] VITALS: BP 132/75; PULSE 66; RESP 16; TEMP 98
--- NOTE | 2022-10-10 14:23 | P.PAINPG ---
PQRS Measure Charge Sheet Comment: A 81 yr old female with a history of severe and chronic LBP secondary to lumbar DDD and spondylosis with facet arthropathy without myelopathy presents today for medication refills. Pt states she underwent a BL RFA L4-L5, L5-S1 in Mar 2022 where she experienced 85% pain relief x 6 mo s/p procedure. Pain level is provoked at 8/10 in intensity, constant, localized in the lumbar spine, achy/ sharp in character w/o shooting pain. Pain is provoked by walking/ standing for periods of 10 min or more. Pain is alleviated with PT x 6 wks which she is currently in, massage therapy weekly x 1 mo in 2021, heat, ice, medications, topicals, repositioning and rest. Oswestry axial pain score of 34. Interventional procedures include JUAN L1-2, BL RFA LE - L5 (Mar 2022) Patient is currently on [place] 5/325mg #90, Ibu Patient denies any side effects of the medication(s), denies excessive drowsiness or sleepiness, denies suicidal ideation and reports that the current pain medication is helping to control the pain and improve activities of daily living. Patient denies any motor or sensory deficits. Patient denies any fever or night sweats, denies any change in the bowel movements or urination. Physical Examination: -Constitutional: Cooperative. Not in acute distress . - Neurologic: Cranial nerve II to XII intact. No focal neurological deficits. - Psychatric: Alert & oriented x 3. Matching mood & appropriate affect. Judgment and insight intact. - Musculoskeletal: Cervical spine: Muscle bulk/ tone/ strength in the bilateral upper extremities normal Vertebral body tenderness to palpation over Spurling test positive Distraction test positive Facet loading test positive TTP Thoracic spine Muscle bulk / tone/ strength in the bilateral paraspinal muscles normal Vertebral body tender to palpation over Facet loading test positive TTP Lumbar spine: Motor bulk/ tone/ strength lower extremities , thigh and legs : 5/5 Deep tendon reflexes : Normal Knee Jerk. Normal Ankle Jerk . Vertebral body tenderness to palpation Lumbar Facet Loading Test positive over BL L4-L5, L5-S1 Straight Leg Raise: positive at 30 degrees right side/ left side Gaenslen's Test positive Sacral spine : Severe tenderness over the Sacroiliac joint: right side / left side Range of motion: Flexion of the lumbar spine <60 degrees Range of motion: Extension of the lumbar spine <20 degrees Gaenslen's Test positive right side / left side Casey test: positive right side / left side Thigh Thrust Test positive right side / left side Sacral Thrust Test positive right side / left side Assessment and plan: Chronic LBP secondary to lumbar DDD, spondylosis with facet arthropathy without myelopathy Recommendation of BL RFA L4-L5, L5-S1. Pt exhibited sufficient pain relief w prior RFA procedure from Mar 2022. Risks, benefits of procedure discussed and patient verbalized understanding. Protocol for anticoagulants continuation/ discontinuation mac procedure discussed. Chronic and current use of high-risk medication (Opioids). The patient was counseled about risk of opioid use, psychological risk associated with opioids and was orally counseled to not overuse , divert or sell medications. Pt is to store medication in a safe location. The patient is counseled against driving while using narcotic medications and also not to use alcohol or any illicit recreational drugs. Patient verbalized understanding that the lack of compliance will result in failure to renew narcotic prescription(s) as well as possible discharge from the clinic Diagnoses, prognosis and treatment options including but not limited to physical therapy, surgical interventions, interventional therapies and medication management including narcotics and adjuvant medication were discussed. All patient questions answered MAPS reviewed and it was appropriate. UDS from 08/15/22 reviewed and consistent. Prescription refill for [place] 5/325mg #90 w 1 RF. I have spent less than 30 minutes on patient care today. Dr Holland was available by phone for the evaluation of this patient. The time was used to review the medical records including relevant urine studies and Prescription history (MAPs), review of the available imaging, evaluation and examination of the patient, coordination of care with the medical staff and if applicable referring physicians, as well as creation of the medical record PQRS Narrative: Smoking Status Former smoker Narcotic Agreement Date Signed 04/25/22 Hx Alcohol Use (MH) Yes: rare Home Medications: Ambulatory Orders Cholecalciferol [Vitamin D3 (25 Mcg = 1000 Iu)] 50 mcg PO DAILY 05/03/15 Levothyroxine Sodium 25 mcg PO QAM 10/01/19 Mirabegron [Myrbetriq] 25 mg PO DAILY 11/27/21 Multivit-Min/Iron/Folic/Lutein [Centrum Silver Women Tablet] 1 each PO DAILY 11/27/21 Atorvastatin [Lipitor] 40 mg PO DAILY tab 12/14/21 Clopidogrel [Plavix] 0.5 tab PO DAILY 03/21/22 Effer-K 20 meq PO DAILY 03/21/22 Losartan [Cozaar] 25 mg PO QAM 03/21/22 Metoprolol Tartrate [Lopressor] 25 mg PO BID 03/21/22 Lidocaine 5% Patch [Lidoderm 5% Patch] 1 patch TOPICAL DAILY PRN 30 Days #30 patch 06/20/22 Aspirin 81 mg PO DAILY 07/12/22 Furosemide [Lasix] 20 mg PO DAILY 07/12/22 HYDROcodone/APAP 5-325MG [[place] 5-325] 1 tab PO Q8HR PRN 30 Days #90 tab 10/10/22 HYDROcodone/APAP 5-325MG [[place] 5-325] 1 tab PO Q8HR PRN 30 Days #90 tab 10/10/22 Controlled Substance Measures - Controlled Substance Measures Is patient prescribed a controlled substance at discharge?: Yes When asked, does pt state using other controlled substances?: Yes If prescribed controlled substance>3 days was MAPS reviewed?: Yes
== END ==
LOC: PNWHC3 10:18
PROVIDERS: ATTEND Specialist
DX: M51.37 Other intervertebral disc degeneration, lumbosacral region (principal); M47.817 Spondylosis without myelopathy or radiculopathy, lumbosacral region; G89.29 Other chronic pain; Z79.891 Long term (current) use of opiate analgesic; Z79.82 Long term (current) use of aspirin; Z87.891 Personal history of nicotine dependence; Z88.2 Allergy status to sulfonamides; Z88.5 Allergy status to narcotic agent; Z91.048 Other nonmedicinal substance allergy status
CPT/HCPCS: 99211

== ENCOUNTER 2022-10-26 07:31 | Day surgery (SDC) | payer MEDICARE, BC ==
[2022-10-23 16:14] VITALS: BMI 26.4
[2022-10-26 07:47] VITALS: TEMP 97
[2022-10-26] MEDS ORDERED: LACTATED RINGERS 1,000 ML IV ONE (08:31)
[2022-10-26] MEDS ORDERED: methylPREDNISolone ACETATE 40 MG/ML 1 ML VIAL ONE (08:32)
[2022-10-26] MEDS ORDERED: ROPIVACAINE 5 MG/ML 20 ML AMPULE ONE (08:32)
[2022-10-26] MEDS ORDERED: fentaNYL (PF) 50 MCG/ML 2 ML AMP ONE (08:32)
[2022-10-26] MEDS ORDERED: MIDAZOLAM 2 MG/2 ML VIAL ONE (08:32)
--- NOTE | 2022-10-26 08:58 | P.PCN ---
Date of Procedure: 10/26/22 Procedure(s) Performed: PREOPERATIVE DIAGNOSIS: 1-Lumbar Spondylosis with Facet Arthropathy without myelopathy. 2- Lumber degenerative disc disease. POSTOPERATIVE DIAGNOSIS: 1- Lumbar Spondylosis with Facet Arthropathy without myelopathy. 2- Lumber degenerative disc disease. PROCEDURES : Bilateral Radiofrequency thermocoagulation, L3 , L4 , and L5 medial branch, with fluoroscopic guidance (fluoroscopy images available in the radiology department) ( to denervate the facet joint at Bilateral L4-5 ,and L5-S1 levels ). ANESTHESIA: Monitered anesthesia care as per anesthesia department. EBL: Minimal PROCEDURE INDICATION: The patient with low back pain secondary to lumbar facet arthropathy who had more than 50% relief of her pain with previous diagnostic lumbar medial branch block with bupivacaine. PROCEDURE DESCRIPTION / TECHNIQUE: The patient was seen and identified in the preoperative area. Risks, benefits, complications, including but not limited to risk of infection ,bleeding , allergic reactions to the medications and no complete pain releife , and alternatives were discussed with the patient, the patient agreed to proceed with the procedure and signed the consent. IV was started. Vital signs remained stable throughout the procedure. Patient was taken to the OR and time out was completed. The patient was placed in the prone position on the procedure table. The lumber area was prepped and draped in the usual sterile fashion. . Vital signs were closely monitored during the procedure .IV sedation was used during the procedure to decrease patients anxiety. Using AP and then oblique fluoroscopy, the ``eye of the Earl dog co rresponding to the connection between the superior and transverse articular processes of right L3, L4, and L5 were identified, marked, and localized with 1% lidocaine. Subsequently, a 18 [id number] radiofrequency cannula with a 10- mm active tip was advanced guided by fluoroscopy to each of the``eyes of the Earl dog at right L3, L4, and L5. Each site then underwent sensory testing at 50 Hz and 0 to 1 volt and motor testing at 2.5 Hz and 0 to 3 volt with local stimulation, but no radicular symptoms down the legs. Thereafter each sites underwent radiofrequency thermocoagulation at 80 degrees celsius for 90 seconds after injecting 0.5 ml of PF Ropivacaine 1ml, then after the thermocoagulation done , 1 ml of the block solution containing Depo-Medrol 20 mg and 3 ml of Ropivacaine 0.5% was injected at the right L3 , L4 , and L5 , levels after negative aspiration of CSF and blood and with no paresthesias. Cannulas were retracted while injecting lidocaine 1% until the needle is out. The same procedure was repeated at the level of Left L3, L4, and L5 levels. At the end of the procedure, the skin was cleansed and bandages were applied. COMPLICATIONS: No acute complications. DISPOSITION / PLANS: The patient was placed in a supine position and transferred to the recovery area in a stable condition for observation and was discharged from the recovery room after meeting discharge criteria. Home discharge instructions given to the patient by the staff. The patient was reexamined prior to discharge. The patient will schedule a follow up in the clinic in 2-4 weeks.
[2022-10-26] MEDS ORDERED: LACTATED RINGERS 700 ML IV ONE (09:03)
[2022-10-26 09:07] VITALS: RESP 18
[2022-10-26 09:21] VITALS: BP 143/79; PULSE 78
--- NOTE | 2022-10-26 09:35 | FL ---
Fluoroscopy History: RADIO FREQ BILAT LUMBAR 19 SEC FL TIME DAP [id number]
== END 2022-10-26 09:37 | disposition home or self-care (01) ==
LOC: ORPAIN 07:31
PROVIDERS: ATTEND Anesthesiology
DX: M51.36 Other intervertebral disc degeneration, lumbar region (principal); M47.816 Spondylosis without myelopathy or radiculopathy, lumbar region; I25.10 Atherosclerotic heart disease of native coronary artery without angina pectoris; I10 Essential (primary) hypertension; E78.5 Hyperlipidemia, unspecified; Z95.1 Presence of aortocoronary bypass graft; E03.9 Hypothyroidism, unspecified; K21.9 Gastro-esophageal reflux disease without esophagitis; Z79.82 Long term (current) use of aspirin; Z79.890 Hormone replacement therapy; Z88.5 Allergy status to narcotic agent; Z88.2 Allergy status to sulfonamides; Z79.899 Other long term (current) drug therapy; Z79.02 Long term (current) use of antithrombotics/antiplatelets; Z79.891 Long term (current) use of opiate analgesic
CPT/HCPCS: 64635; 64636 ×2; 99152; J2250; J1030; J3010; J2795

== ENCOUNTER → 2022-11-19 | Outpatient (CLI) | payer MEDICARE, BC ==
[2022-11-19 11:28] VITALS: BP 152/76; PULSE 56; RESP 98; TEMP 97.7
--- NOTE | 2022-11-19 14:15 | P.PAINPG ---
PQRS Measure Charge Sheet Comment: A 81 yr old female with a history of severe and chronic LBP secondary to lumbar DDD and spondylosis with facet arthropathy without myelopathy presents today for evaluation s/p BL RFA L3-L5. Pt states she experienced 90% pain relief s/p procedure. Pain level is provoked at 6/10 in intensity, constant, localized in the mid spine, achy/ pressure in character w L sided shooting pain. Pain is provoked by walking/ standing for periods of 10 min or more. Pain is alleviated with PT x 6 wks which she is currently in, massage therapy weekly x 1 mo in 2021, heat, ice, medications, topicals, repositioning and rest. Oswestry axial pain score of . Interventional procedures include JUAN L1-L2, BL RFA L3 - L5 (Mar 2022), BL T6- T7, T7-T8 (Mar 2021) Patient is currently on [place] 5/325mg #90, Ibu Patient denies any side effects of the medication(s), denies excessive drowsiness or sleepiness, denies suicidal ideation and reports that the current pain medication is helping to control the pain and improve activities of daily living. Patient denies any motor or sensory deficits. Patient denies any fever or night sweats, denies any change in the bowel movements or urination. Physical Examination: -Constitutional: Cooperative. Not in acute distress . - Neurologic: Cranial nerve II to XII intact. No focal neurological deficits. - Psychatric: Alert & oriented x 3. Matching mood & appropriate affect. Judgment and insight intact. - Musculoskeletal: Cervical spine: Muscle bulk/ tone/ strength in the bilateral upper extremities normal Vertebral body tenderness to palpation over Spurling test positive Distraction test positive Facet loading test positive TTP Thoracic spine Muscle bulk / tone/ strength in the bilateral paraspinal muscles normal Vertebral body tender to palpation over T6 Facet loading test positive TTP Lumbar spine: Motor bulk/ tone/ strength lower extremities , thigh and legs : 5/5 Deep tendon reflexes : Normal Knee Jerk. Normal Ankle Jerk . Vertebral body tenderness to palpation Lumbar Facet Loading Test positive Straight Leg Raise: positive at 30 degrees right side/ left side Gaenslen's Test positive Sacral spine : Severe tenderness over the Sacroiliac joint: right side / left side Range of motion: Flexion of the lumbar spine <60 degrees Range of motion: Extension of the lumbar spine <20 degrees Gaenslen's Test positive right side / left side Casey test: positive right side / left side Thigh Thrust Test positive right side / left side Sacral Thrust Test positive right side / left side Assessment and plan: Chronic L mid back pain secondary to thoracic DDD, spondylosis with facet arthropathy without myelopathy Recommendation of L paramedian JUAN T6-T7 #1. May need a series of injections for optimal pain relief. Risks, benefits of procedure discussed and patient verbalized understanding. Protocol for anticoagulants continuation/ discontinuation mac procedure discussed. Chronic and current use of high-risk medication (Opioids). The patient was counseled about risk of opioid use, psychological risk associated with opioids and was orally counseled to not overuse , divert or sell medications. Pt is to store medication in a safe location. The patient is counseled against driving while using narcotic medications and also not to use alcohol or any illicit recreational drugs. Patient verbalized understanding that the lack of compliance will result in failure to renew narcotic prescription(s) as well as possible discharge from the clinic Diagnoses, prognosis and treatment options including but not limited to physical therapy, surgical interventions, interventional therapies and medication management including narcotics and adjuvant medication were discussed. All patient questions answered MAPS reviewed and it was appropriate. UDS from 08/15/22 reviewed and consistent. Prescription refill for [place] 5/325mg #90 w 1 RF. I have spent less than 30 minutes on patient care today. Dr Holland was available by phone for the evaluation of this patient. The time was used to review the medical records including relevant urine studies and Prescription history (MAPs), review of the available imaging, evaluation and examination of the patient, coordination of care with the medical staff and if applicable referring physicians, as well as creation of the medical record PQRS Narrative: Smoking Status Former smoker Narcotic Agreement Date Signed 04/25/22 Hx Alcohol Use (MH) Yes: rare Home Medications: Ambulatory Orders Cholecalciferol [Vitamin D3 (25 Mcg = 1000 Iu)] 50 mcg PO DAILY 05/03/15 Levothyroxine Sodium 25 mcg PO QAM 10/01/19 Multivit-Min/Iron/Folic/Lutein [Centrum Silver Women Tablet] 1 each PO DAILY 11/27/21 Atorvastatin [Lipitor] 40 mg PO DAILY tab 12/14/21 Clopidogrel [Plavix] 0.5 tab PO DAILY 03/21/22 Losartan [Cozaar] 25 mg PO QAM 03/21/22 Metoprolol Tartrate [Lopressor] 25 mg PO QAM 03/21/22 Aspirin 81 mg PO DAILY 07/12/22 HYDROcodone/APAP 5-325MG [[place] 5-325] 1 tab PO Q8HR PRN 30 Days #90 tab 10/10/22 Controlled Substance Measures - Controlled Substance Measures Is patient prescribed a controlled substance at discharge?: No
== END ==
LOC: PNWHC3 09:19
PROVIDERS: ATTEND Specialist
DX: M51.34 Other intervertebral disc degeneration, thoracic region (principal); M47.814 Spondylosis without myelopathy or radiculopathy, thoracic region; G89.29 Other chronic pain; Z79.891 Long term (current) use of opiate analgesic; Z91.048 Other nonmedicinal substance allergy status; Z88.2 Allergy status to sulfonamides; Z88.5 Allergy status to narcotic agent; Z79.82 Long term (current) use of aspirin; Z87.891 Personal history of nicotine dependence
CPT/HCPCS: 99211

== ENCOUNTER → 2022-12-05 | Outpatient (CLI) | payer MEDICARE, BC ==
[2022-12-05 10:32] VITALS: BP 128/78; PULSE 54; RESP 15; TEMP 97.9
--- NOTE | 2022-12-05 13:20 | P.PAINPG ---
PQRS Measure Charge Sheet Comment: A 81 yr old female with a history of severe and chronic LBP secondary to lumbar DDD and spondylosis with facet arthropathy without myelopathy presents today for evaluation for medication refills. Pain level is provoked at 8/10 in intensity, constant, localized in the mid spine, achy/ pressure in character w L sided shooting pain. Pain is provoked by walking/ standing for periods of 10 min or more. Pain is alleviated with PT x 6 wks which she is currently in, massage therapy weekly x 1 mo in 2021, heat, ice, medications, topicals, repositioning and rest. Interventional procedures include JUAN L1-L2, BL RFA L3 - L5 (Mar 2022), BL T6- T7, T7-T8 (Mar 2021) Patient is currently on [place] 5/325mg #90, Ibu Patient denies any side effects of the medication(s), denies excessive drowsiness or sleepiness, denies suicidal ideation and reports that the current pain medication is helping to control the pain and improve activities of daily living. Patient denies any motor or sensory deficits. Patient denies any fever or night sweats, denies any change in the bowel movements or urination. Physical Examination: -Constitutional: Cooperative. Not in acute distress . - Neurologic: Cranial nerve II to XII intact. No focal neurological deficits. - Psychatric: Alert & oriented x 3. Matching mood & appropriate affect. Judgment and insight intact. - Musculoskeletal: Cervical spine: Muscle bulk/ tone/ strength in the bilateral upper extremities normal Vertebral body tenderness to palpation over Spurling test positive Distraction test positive Facet loading test positive TTP Thoracic spine Muscle bulk / tone/ strength in the bilateral paraspinal muscles normal Vertebral body tender to palpation over T6 Facet loading test positive TTP Lumbar spine: Motor bulk/ tone/ strength lower extremities , thigh and legs : 5/5 Deep tendon reflexes : Normal Knee Jerk. Normal Ankle Jerk . Vertebral body tenderness to palpation Lumbar Facet Loading Test positive Straight Leg Raise: positive at 30 degrees right side/ left side Gaenslen's Test positive Sacral spine : Severe tenderness over the Sacroiliac joint: right side / left side Range of motion: Flexion of the lumbar spine <60 degrees Range of motion: Extension of the lumbar spine <20 degrees Gaenslen's Test positive right side / left side Casey test: positive right side / left side Thigh Thrust Test positive right side / left side Sacral Thrust Test positive right side / left side Assessment and plan: Chronic L mid back pain secondary to thoracic DDD, spondylosis with 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 The patient was counseled about risk of opioid use, psychological risk associated with opioids and was orally counseled to not overuse , divert or sell medications. Pt is to store medication in a safe location. The patient is counseled against driving while using narcotic medications and also not to use alcohol or any illicit recreational drugs. Patient verbalized understanding that the lack of compliance will result in failure to renew narcotic prescription(s) as well as possible discharge from the clinic Diagnoses, prognosis and treatment options including but not limited to physical therapy, surgical interventions, interventional therapies and medication management including narcotics and adjuvant medication were discussed. All patient questions answered MAPS reviewed and it was appropriate. Narcotic agreement up to date. UDS from 08/15/22 reviewed and consistent. Prescription refill for [place] 5/325mg #90 w 1 RF. I have spent less than 30 minutes on patient care today. Dr Holland was avai lable by phone for the evaluation of this patient. The time was used to review the medical records including relevant urine studies and Prescription history (MAPs), review of the available imaging, evaluation and examination of the patient, coordination of care with the medical staff and if applicable referring physicians, as well as creation of the medical record - Pain Location Bilateral Upper Back Non-Pharmacological Interventions: Heat, Ice, Inactivity Pharmacological Interventions: Epidural, Scheduled Medication PQRS Narrative: Smoking Status Former smoker Narcotic Agreement Date Signed 04/25/22 Hx Alcohol Use (MH) Yes: rare Home Medications: Ambulatory Orders Cholecalciferol [Vitamin D3 (25 Mcg = 1000 Iu)] 50 mcg PO DAILY 05/03/15 Levothyroxine Sodium 25 mcg PO QAM 10/01/19 Multivit-Min/Iron/Folic/Lutein [Centrum Silver Women Tablet] 1 each PO DAILY 11/27/21 Atorvastatin [Lipitor] 40 mg PO DAILY tab 12/14/21 Clopidogrel [Plavix] 0.5 tab PO DAILY 03/21/22 Losartan [Cozaar] 25 mg PO QAM 03/21/22 Metoprolol Tartrate [Lopressor] 25 mg PO QAM 03/21/22 Aspirin 81 mg PO DAILY 07/12/22 HYDROcodone/APAP 5-325MG [[place] 5-325] 1 tab PO Q8HR PRN 30 Days #90 tab 12/05/22 HYDROcodone/APAP 5-325MG [[place] 5-325] 1 tab PO Q8HR PRN 30 Days #90 tab 12/05/22 Controlled Substance Measures - Controlled Substance Measures Is patient prescribed a controlled substance at discharge?: Yes When asked, does pt state using other controlled substances?: Yes If prescribed controlled substance>3 days was MAPS reviewed?: Yes
== END ==
LOC: PNWHC3 10:07
PROVIDERS: ATTEND Specialist
DX: M51.34 Other intervertebral disc degeneration, thoracic region (principal); M47.814 Spondylosis without myelopathy or radiculopathy, thoracic region; G89.29 Other chronic pain; Z87.891 Personal history of nicotine dependence; Z79.82 Long term (current) use of aspirin; Z79.891 Long term (current) use of opiate analgesic; Z91.048 Other nonmedicinal substance allergy status; Z88.2 Allergy status to sulfonamides; Z88.5 Allergy status to narcotic agent
CPT/HCPCS: 99211

== ENCOUNTER → 2022-12-10 | Outpatient (CLI) | payer MEDICARE, BC ==
[~2022-12-10] MED LIST changes: +DENOSUMAB 60 MG/ML 1 ML SYRINGE SQ NR; -LACTATED RINGERS 1,000 ML IV SCH; -LIDOCAINE 1% (10MG/ML) FOR IV START INTRADERMA PRN
[2022-12-10 13:20] VITALS: BP 137/80; PULSE 58; RESP 16; TEMP 97.7
== END ==
LOC: PROCWHC3 12:54
PROVIDERS: ATTEND Internal Medicine
DX: M81.0 Age-related osteoporosis without current pathological fracture (principal)
CPT/HCPCS: 96372; J0897

== ENCOUNTER 2022-12-11 06:38 | Day surgery (SDC) | payer MEDICARE, BC ==
[2022-12-11] MEDS ORDERED: LACTATED RINGERS 1,000 ML IV SCH (07:16)
[2022-12-11 07:23] VITALS: TEMP 97.7
[2022-12-11] MEDS ORDERED: IOPAMIDOL M200 10 ML VIAL ONE (08:01)
[2022-12-11] MEDS ORDERED: methylPREDNISolone ACETATE 40 MG/ML 1 ML VIAL ONE (08:01)
--- NOTE | 2022-12-11 08:14 | P.PCN ---
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 POSTOPERATIVE DIAGNOSIS: Same as preop diagnosis. PROCEDURE 1. Thoracic epidural steroid injection under fluoroscopic guidance at the T6-7 level. (Fluoroscopy imaging was available in radiology department) 2. Thoracic epidurogram. ANESTHESIA: Lidocaine 1% 3 and then only. EBL: Minimal PROCEDURE INDICATION: The patient with mid back pain and radiculitis symptoms unresponsive to conservative treatment. Fluoroscopy was used to optimize visualization of the needle placement and to maximize safety. PROCEDURE DESCRIPTION / TECHNIQUE: The patient was seen and identified in the preoperative area. Risks, benefits, complications including but not limited to infections ,bleeding ,allergic reaction to the medications ,nerve damage and not complete pain releife , and alternatives were discussed with the patient. The patient agreed to proceed with the procedure and signed the consent, and vital signs were stable. Patient was taken to the OR and time out was completed. The patient was placed in the prone position on procedure table and a pillow was placed under the abdomen to reduce lumbar lordosis. The lumbosacral area was prepped and draped in the usual sterile fashion.ere closely monitored during the procedure. Vital signs was monitered during the entire procedure. Using anterior-posterior fluoroscopy, the T6-7 interlaminar space was identified and the skin over this site was marked and then infiltrated with 1% lidocaine subcutaneously. Subsequently, a 20-gauge Tuohy epidural needle was ins erted ( left paramedial ) ,and advanced toward the epidural space using the ``Loss of resistance technique and guided by AP and lateral fluoroscopy. The correct needle position in the epidural space was verified with the injection of 2 mL of the water soluble contrast dye Isovue 200 contrast and observing an excellent epidurogram with the epidural spread of the dye, after negative aspiration for blood and CSF and in the absence of paresthesias. Again after negative aspiration, a 6 ml mixture containing 40 mg of Depo-medrol ( Preservetive Free ), and 2 ml of preservative free Normal Saline, and 2 ml of preservative free lidocaine 1% solution was injected and a washout of epidurogram was seen. Needle was withdrawn intact, skin was cleansed, and bandages were applied. COMPLICATIONS: None DISPOSITION / PLANS: The patient was placed in a supine position and transferred to the recovery area in a stable condition for observation. There was no evidence of lower extremity motor or sensory deficit after the procedure. Patient was discharged from the recovery room after meeting discharge criteria. Home discharge instructions were given to the patient by the staff. The patient was reexamined prior to discharge. The patient will schedule a follow up in the clinic in 2-4 weeks. plavix held for 7 days.
[2022-12-11 08:19] VITALS: BP 155/85; PULSE 57; RESP 16
--- NOTE | 2022-12-11 16:51 | FL ---
EXAMINATION TYPE: FL guided pain mgmt statistic DATE OF EXAM: 12/11/2022 FLUOROSCOPY Fluoroscopy time of 6 seconds was used during thoracic epidural steroid injection. 1 image/s documen t/s the procedure. 0.81737 mGycm2.
== END 2022-12-11 08:37 | disposition home or self-care (01) ==
LOC: ORPAIN 06:38
PROVIDERS: ATTEND Specialist
DX: M51.14 Intervertebral disc disorders with radiculopathy, thoracic region (principal); M47.24 Other spondylosis with radiculopathy, thoracic region; Z88.2 Allergy status to sulfonamides; Z88.5 Allergy status to narcotic agent; Z79.02 Long term (current) use of antithrombotics/antiplatelets; Z79.82 Long term (current) use of aspirin
CPT/HCPCS: 62321; J1030; Q9966

== ENCOUNTER → 2022-12-14 | Outpatient (CLI) | payer MEDICARE, BC ==
[2022-12-14 11:03] LABS: ALT 42 U/L (8-44); AST 31 U/L (13-35); Chol/HDL Ratio 2.76 Ratio; LDL Cholesterol,Calculated 90.1 mg/dL (0.0-131.0)
== END | disposition home or self-care (01) ==
LOC: LABWHC1 07:35
PROVIDERS: ATTEND Internal Medicine Interventional Cardiology
DX: E78.2 Mixed hyperlipidemia (principal)
CPT/HCPCS: 36415; 80061; 84450; 84460

== ENCOUNTER → 2023-02-04 | Outpatient (CLI) | payer MEDICARE, BC ==
--- NOTE | 2023-02-04 14:39 | P.PAINPG ---
PQRS Measure Charge Sheet Comment: A 81 yr old female with a history of severe and chronic mid and lower back pain secondary to thoracolumbar DDD and spondylosis with facet arthropathy without myelopathy presents today for evaluation for medication refills and evaluation s/p JUAN T6-T7. Pt states she experienced 80% pain relief x 4 wks s/p procedure. Pain level is provoked at 9/10 in intensity, constant, localized in the mid spine, stabbing in character w L sided shooting pain. Pain is provoked by walking/ standing for periods of 10 min or more. Pain is alleviated with PT x 6 wks which she is currently in, massage therapy weekly x 1 mo in 2021, heat, ice, medications, topicals, repositioning and rest. Interventional procedures include JUAN L1-L2, BL RFA L3 - L5 (Mar 2022), BL T6- T7, T7-T8 (Mar 2021) Patient is currently on [place] 5/325mg #90, Ibu Patient denies any side effects of the medication(s), denies excessive drowsiness or sleepiness, denies suicidal ideation and reports that the current pain medication is helping to control the pain and improve activities of daily living. Patient denies any motor or sensory deficits. Patient denies any fever or night sweats, denies any change in the bowel movements or urination. Physical Examination: -Constitutional: Cooperative. Not in acute distress . - Neurologic: Cranial nerve II to XII intact. No focal neurological deficits. - Psychatric: Alert & oriented x 3. Matching mood & appropriate affect. Judgment and insight intact. - Musculoskeletal: Cervical spine: Muscle bulk/ tone/ strength in the bilateral upper extremities normal Vertebral body tenderness to palpation over Spurling test positive Distraction test positive Facet loading test positive TTP Thoracic spine Muscle bulk / tone/ strength in the bilateral paraspinal muscles normal Vertebral body tender to palpation over T6 Facet loading test positive TTP Lumbar spine: Motor bulk/ tone/ strength lower extremities , thigh and legs : 5/5 Deep tendon reflexes : Normal Knee Jerk. Normal Ankle Jerk . Vertebral body tenderness to palpation Lumbar Facet Loading Test positive Straight Leg Raise: positive at 30 degrees right side/ left side Gaenslen's Test positive Sacral spine : Severe tenderness over the Sacroiliac joint: right side / left side Range of motion: Flexion of the lumbar spine <60 degrees Range of motion: Extension of the lumbar spine <20 degrees Gaenslen's Test positive right side / left side Casey test: positive right side / left side Thigh Thrust Test positive right side / left side Sacral Thrust Test positive right side / left side Assessment and plan: Chronic L mid back pain secondary to thoracic DDD, spondylosis with 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 PT x 6 wks w focus on traction/ decompression [id number] The patient was counseled about risk of opioid use, psychological risk associated with opioids and was orally counseled to not overuse , divert or sell medications. Pt is to store medication in a safe location. The patient is counseled against driving while using narcotic med ications and also not to use alcohol or any illicit recreational drugs. Patient verbalized understanding that the lack of compliance will result in failure to renew narcotic prescription(s) as well as possible discharge from the clinic Diagnoses, prognosis and treatment options including but not limited to physical therapy, surgical interventions, interventional therapies and medica tion management including narcotics and adjuvant medication were discussed. All patient questions answered MAPS reviewed and it was appropriate. Narcotic agreement up to date. UDS collected 02/04/23. Prescription refill for [place] 5/325mg #90 w 1 RF. I have spent less than 30 minutes on patient care today. Dr Holland was available by phone for the evaluation of this patient. The time was used to review the medical records including relevant urine studies and Prescription history (MAPs), review of the available imaging, evaluation and examination of the patient, coordination of care with the medical staff and if applicable referring physicians, as well as creation of the medical record PQRS Narrative: Smoking Status Former smoker Narcotic Agreement Date Signed 04/25/22 Hx Alcohol Use (MH) Yes: rare Home Medications: Ambulatory Orders Cholecalciferol [Vitamin D3 (25 Mcg = 1000 Iu)] 50 mcg PO DAILY 05/03/15 Levothyroxine Sodium 25 mcg PO QAM 10/01/19 Multivit-Min/Iron/Folic/Lutein [Centrum Silver Women Tablet] 1 each PO DAILY 11/27/21 Atorvastatin [Lipitor] 40 mg PO DAILY tab 12/14/21 Clopidogrel [Plavix] 0.5 tab PO DAILY 03/21/22 Metoprolol Tartrate [Lopressor] 25 mg PO QAM 03/21/22 Aspirin 81 mg PO DAILY 07/12/22 Denosumab [Prolia] 60 mg SQ 12/10/22 HYDROcodone/APAP 5-325MG [[place] 5-325] 1 tab PO Q8HR PRN 30 Days #90 tab 02/04/23 HYDROcodone/APAP 5-325MG [[place] 5-325] 1 tab PO TID PRN 30 Days #90 tab 02/04/23 Controlled Substance Measures - Controlled Substance Measures Is patient prescribed a controlled substance at discharge?: Yes When asked, does pt state using other controlled substances?: No If prescribed controlled substance>3 days was MAPS reviewed?: Yes
[2023-02-04 14:53] VITALS: BP 155/84; PULSE 85; RESP 16; TEMP 97.8
== END ==
LOC: PNWHC3 13:57
PROVIDERS: ATTEND Specialist
DX: M47.815 Spondylosis without myelopathy or radiculopathy, thoracolumbar region (principal); M51.34 Other intervertebral disc degeneration, thoracic region; G89.29 Other chronic pain; Z51.81 Encounter for therapeutic drug level monitoring; Z79.891 Long term (current) use of opiate analgesic; Z87.891 Personal history of nicotine dependence; Z79.82 Long term (current) use of aspirin; Z88.2 Allergy status to sulfonamides; Z91.048 Other nonmedicinal substance allergy status; Z88.5 Allergy status to narcotic agent
CPT/HCPCS: 80307; G0463; 99212

== ENCOUNTER → 2023-04-03 | Outpatient (CLI) | payer MEDICARE, BC ==
[2023-04-03 13:18] VITALS: BP 124/85; PULSE 100; RESP 16
--- NOTE | 2023-04-03 14:28 | P.PAINPG ---
PQRS Measure Charge Sheet Comment: A 82 yr old female with a history of severe and chronic mid and lower back pain secondary to thoracolumbar DDD and spondylosis with facet arthropathy without myelopathy presents today for evaluation for medication refills. Pt states she underwent a BL RFA of the L3-L5 in Sep 2022 where she experienced 80 % pain relief s/p procedure. Pain level is provoked at 10/10 in intensity, constant, localized in the lumbar spine, predominantly axial, stabbing in character without shooting pain. Pain is provoked by walking/ standing for periods of 10 min or more. Pain is alleviated with PT integrated w massage x 6 wks in Mar 2023, injections, heat, ice, medications, topicals, repositioning and rest. Oswestry axial pain score of 34. Interventional procedures include JUAN L1-L2, BL RFA L3 - L5 (Mar 2022), BL T6- T7, T7-T8 (Mar 2021) Patient is currently on [place] 5/325mg #90, Ibu Patient denies any side effects of the medication(s), denies excessive drowsiness or sleepiness, denies suicidal ideation and reports that the current pain medication is helping to control the pain and improve activities of daily living. Patient denies any motor or sensory deficits. Patient denies any fever or night sweats, denies any change in the bowel movements or urination. Physical Examination: -Constitutional: Cooperative. Not in acute distress . - Neurologic: Cranial nerve II to XII intact. No focal neurological deficits. - Psychatric: Alert & oriented x 3. Matching mood & appropriate affect. Judgment and insight intact. - Musculoskeletal: Cervical spine: Muscle bulk/ tone/ strength in the bilateral upper extremities normal Vertebral body tenderness to palpation over Spurling test positive Distraction test positive Facet loading test positive TTP Thoracic spine Muscle bulk / tone/ strength in the bilateral paraspinal muscles normal Vertebral body tender to palpation Facet loading test positive TTP Lumbar spine: Motor bulk/ tone/ strength lower extremities , thigh and legs : 5/5 Deep tendon reflexes : Normal Knee Jerk. Normal Ankle Jerk . Vertebral body tenderness to palpation Lumbar Facet Loading Test positive over BL L4-L5, L5-S1 Straight Leg Raise: positive at 30 degrees right side/ left side Gaenslen's Test positive Sacral spine : Severe tenderness over the Sacroiliac joint: right side / left side Range of motion: Flexion of the lumbar spine <60 degrees Range of motion: Extension of the lumbar spine <20 degrees Gaenslen's Test positive right side / left side Casey test: positive right side / left side Thigh Thrust Test positive right side / left side Sacral Thrust Test positive right side / left side Assessment and plan: Chronic LBP secondary to DDD, spondylosis with facet arthropathy without myelopathy Recommendation of BL RFA L3-L5. Pt exhibited substantial pain relief w previous BL RFA of the L3-L5 from Mar 2022 and Sep 2022. Risks, benefits of procedure discussed and pt verbalized understanding. Protocol for discontinuation/ continuation of medications mac procedure discussed. Acknowledged understanding. Chronic and current use of high-risk medication (Opioids). The patient was counseled about risk of opioid use, psychological risk associated with opioids and was orally counseled to not overuse , divert or sell medications. Pt is to store medication in a safe location. The patient is counseled against driving while using narcotic medications and also not to use alcohol or any illicit recreational drugs. Patient verbalized understanding that the lack of compliance will result in failure to renew narcotic prescription(s) as well as possible discharge from the clinic Diagnoses, prognosis and treatment options including but not limited to physical therapy, surgical interventions, interventional therapies and medication management including narcotics and adjuvant medication were discussed. All patient questions answered MAPS reviewed and it was appropriate. Narcotic agreement up to date. UDS fr 02/04/23 reviewed and consistent. Prescription refill for [place] 5/325mg #90 w 1 RF. I have spent less than 30 minutes on patient care today. Dr Holland was available by phone for the evaluation of this patient. The time was used to review the medical records including relevant urine studies and Prescription history (MAPs), review of the available imaging, evaluation and examination of the patient, coordination of care with the medical staff and if applicable referring physicians, as well as creation of the medical record - Pain Location Bilateral Lower Back Non-Pharmacological Interventions: Heat, Home Exercise, Inactivity, Physical Therapy, Stretching Pharmacological Interventions: Block, Epidural, PRN Medication, Scheduled Medication, Topical Medication PQRS Narrative: Smoking Status Former smoker Narcotic Agreement Date Signed 02/04/23 Hx Alcohol Use (MH) Yes: rare Home Medications: Ambulatory Orders Cholecalciferol [Vitamin D3 (25 Mcg = 1000 Iu)] 50 mcg PO DAILY 05/03/15 Levothyroxine Sodium 25 mcg PO QAM 10/01/19 Multivit-Min/Iron/Folic/Lutein [Centrum Silver Women Tablet] 1 each PO DAILY 11/27/21 Atorvastatin [Lipitor] 40 mg PO DAILY tab 12/14/21 Clopidogrel [Plavix] 0.5 tab PO DAILY 03/21/22 Metoprolol Tartrate [Lopressor] 25 mg PO QAM 03/21/22 Aspirin 81 mg PO DAILY 07/12/22 Denosumab [Prolia] 60 mg SQ 12/10/22 HYDROcodone/APAP 5-325MG [[place] 5-325] 1 tab PO Q8HR PRN 30 Days #90 tab 04/03/23 HYDROcodone/APAP 5-325MG [[place] 5-325] 1 tab PO TID PRN 30 Days #90 tab 04/03/23 Controlled Substance Measures - Controlled Substance Measures Is patient prescribed a controlled substance at discharge?: No
== END ==
LOC: PNWHC3 12:32
PROVIDERS: ATTEND Specialist
DX: M51.37 Other intervertebral disc degeneration, lumbosacral region (principal); M47.817 Spondylosis without myelopathy or radiculopathy, lumbosacral region; G89.29 Other chronic pain; F12.90 Cannabis use, unspecified, uncomplicated; Z79.891 Long term (current) use of opiate analgesic; Z87.891 Personal history of nicotine dependence; Z79.82 Long term (current) use of aspirin; Z91.09 Other allergy status, other than to drugs and biological substances; Z88.2 Allergy status to sulfonamides; Z88.5 Allergy status to narcotic agent
CPT/HCPCS: 99211

== ENCOUNTER 2023-05-24 08:59 | Day surgery (SDC) | payer MEDICARE, BC ==
[2023-05-24 09:56] VITALS: TEMP 96.7
[2023-05-24] MEDS: LACTATED RINGERS 1,000 ML IV SCH (10:02)
[2023-05-24] MEDS ORDERED: fentaNYL (PF) 50 MCG/ML 2 ML AMP ONE (10:30)
[2023-05-24] MEDS ORDERED: MIDAZOLAM 2 MG/2 ML VIAL ONE (10:30)
[2023-05-24] MEDS ORDERED: ROPIVACAINE 5MG/ML 20ML VIAL ONE (10:33)
--- NOTE | 2023-05-24 11:10 | P.PCN ---
Description of Procedure: Preprocedure diagnosis. 1. Lumbar spondylosis with facet joint arthropathy without myelopathy. 2. Lumbar degenerative disc disease. Procedure diagnosis. 1. Lumbar spondylosis with facet joint arthropathy without myelopathy. Space 2. Lumbar degenerative disc disease. Procedure.Bilateral radiofrequency thermocoagulation L3, L4 and L5 medial branch, with fluoroscopic guidance (fluoroscopy images are available in the radiology department) (to Denervate the facet joint at bilateral L4 5 and L5-S1 levels) Anesthesia. Monitored anesthesia care as per anesthesia department, Moderate sedation with intravenous Versed 2 mg and fentanyl 100 g and local infiltration with ropivacaine 0.5%. In OR, continuous pulse ox, blood pressure, EKG and verbal communication was maintained. EBL minimal. Procedure indication. The patient with low back pain secondary to lumbar facet arthropathy who he had more than 50% relief of her pain with previous diagnostic lumbar medial branch block with local anesthetics. Discussed with the patient about the procedure, alternative treatment, possible complications which may include infection, bleeding, nerve damage, aggravation of pain, all of which could be permanent. Patient understands, all questions were answered. Patient signed consent and agreed to proceed with the procedure. Procedure description/technique. After getting consent, patient was taken to the OR and in prone position. The lumbar area was prepped and draped in the usual sterile fashion. After injecting 5 mL of plain 1% lidocaine subcutaneously, a 18-gauge 100 mm radiofrequency cannula with a 10 mm active tip was introduced under tunnel vision of the fluoroscope at the junction of the superior articular process with RIGHT ala of the sacrum. With slight oblique fluoroscope, after injecting 5 mL of plain 1% lidocaine subcutaneously, a 18- gauge 100 mm radiofrequency cannula with a 10 mm active tip was introduced under tunnel vision of the fluoroscope at the junction of the superior articular process with L5 transverse process and junction of the superior articular process with the L4 transverse process Each site then underwent sensory testing with 50 Hz and 0-1 V and motor testing at 2.5 Hz and 0-3 V with local stimulation but no radicular symptoms down the leg. Thereafter each sites underwent radiofrequency thermocoagulation at 80C for 90 seconds after injecting 1 mL of preservative-free 0.5% ropivacaine. Repeat radiofrequency ablation was done at each points after rotating the needle 180 with same setting . In exactly same way, LEFT sided RFA were done at the following 3 points. Junction of the superior articular process with left ala of the sacrum, junction of the superior articular process with the left L5 transverse process, junction of the superior articular process with left L4 transverse process after needle position confirmation by AP, oblique, lateral view of the fluoroscope, negative CSF negative blood negative paresthesia, sensory and motor stimulations followed by injection of 1 mL of 0.5% ropivacaine. Radiofrequency ablation settings where same as the other side, and second lesion was done after rotating the needle 180. RF needles were taken out. At the end of the procedure the skin was cleansed and Band-Aids were applied. Disposition . Patient tolerated the procedure well. No complication. She was placed in supine position and transferred to the recovery area in stable condition for observation and was discharged home from recovery room after meeting discharge criteria. Discharge instructions given to the patient by the staff. The patient were examined prior to discharge the patient will schedule a follow-up in the clinic in 2-4 weeks.
[2023-05-24] MEDS: IV FLUID CONTINUATION 1,000 ML IV ONE (11:12)
[2023-05-24 11:34] VITALS: BP 110/71; PULSE 72; RESP 16
--- NOTE | 2023-05-24 12:33 | FL ---
EXAMINATION TYPE: FL guided pain mgmt statistic DATE OF EXAM: 05/24/2023 FLUOROSCOPY Fluoroscopy time of 1 minute 26 seconds was used during bilateral lumbar radiofrequency ablation. 4 image/s document/s the procedure. 0.58529 mGycm2 DAP
== END 2023-05-24 11:42 ==
LOC: ORPAIN 08:59
PROVIDERS: ATTEND Pain Medicine Interventional Pain Medicine
DX: M47.816 Spondylosis without myelopathy or radiculopathy, lumbar region (principal); M51.36 Other intervertebral disc degeneration, lumbar region; I25.10 Atherosclerotic heart disease of native coronary artery without angina pectoris; I10 Essential (primary) hypertension; E78.5 Hyperlipidemia, unspecified; E07.9 Disorder of thyroid, unspecified; K21.9 Gastro-esophageal reflux disease without esophagitis; Z79.02 Long term (current) use of antithrombotics/antiplatelets; Z79.82 Long term (current) use of aspirin; Z88.2 Allergy status to sulfonamides; Z88.5 Allergy status to narcotic agent; Z91.048 Other nonmedicinal substance allergy status; Z79.890 Hormone replacement therapy; Z79.899 Other long term (current) drug therapy; Z85.9 Personal history of malignant neoplasm, unspecified
CPT/HCPCS: 64635; 64636 ×2; J2250; J2001; J3010; J2795

== ENCOUNTER 2023-07-02 08:24 | Day surgery (SDC) | payer MEDICARE, BC ==
[~2023-07-02 08:24] MED LIST changes: -DENOSUMAB 60 MG/ML 1 ML SYRINGE SQ NR; +LACTATED RINGERS 1,000 ML IV SCH
[2023-07-02] MEDS: LACTATED RINGERS 1,000 ML IV ONE (08:58)
[2023-07-02 09:24] VITALS: TEMP 98
[2023-07-02] MEDS ORDERED: PROPOFOL 10 MG/ML 20 ML VIAL IV ONE (09:27)
--- NOTE | 2023-07-02 09:37 | P.PCN ---
Date of Procedure: 07/02/23 Procedure(s) Performed: BRIEF HISTORY: Patient is a 82-year-old, pleasant, white female scheduled for an upper endoscopy as a part of evaluation of progressive dysphagia to solids for the last 1 year duration.she does history of GERD and esophageal stricture diagnosis recent years ago and the last admission was performed in May 2021.. PROCEDURE PERFORMED: Esophagogastroduodenoscopywith dilation PREOPERATIVE DIAGNOSIS: progressive dysphagia to solids of 1 year duration. IV sedation per anesthesia. PROCEDURE: After informed consent was obtained, the patient was brought into the endoscopy unit. IV sedation was administered by Anesthesia under continuous monitoring. Initially the Olympus GIF-140 video endoscope was inserted into the mouth. Esophagus intubated without any difficulty. It was gradually advanced into the stomach and duodenum and carefully examined. The bulb and the second part of the duodenum appeared normal. The scope at this time was withdrawn to the stomach, adequately insufflated with air, and upon careful examination, mucosa of the antrum,had multiple scattered erosions consistent with gastritis and biopsies were done from this area. Mucosa of the body, cardia and the fundus appeared normal. The scope was then withdrawn into the esophagus. small hiatal hernia noted.The GE junction was located at 36 cm from the incisors. in the distal esophagus there was a esophageal stricture identified was possible to the GE junctionthat was dilated using 12-15 mm TTS balloon in a sequential fashion for 60 seconds.The esophagus appeared normal. There were no erosions or ulcerations seen and the patient tolerated the procedure well. IMPRESSION: 1. Distal esophageal stricture status post balloon dilation [id number] mm TTS balloon. 2. Small hiatal hernia 3. Antral erosive gastritis. RECOMMENDATIONS: The findings of this examination were discussed with the patient as well as her family. She was advised to follow with the biopsy results. clear liquidsdiet for 2 hours. Continue with omeprazole 20 mg daily and follow antireflux measures.
[2023-07-02 10:05] VITALS: BP 156/88; PULSE 58; RESP 20
== END 2023-07-02 10:36 | disposition home or self-care (01) ==
LOC: ORWHC2ENDO 08:24
PROVIDERS: ATTEND Internal Medicine Gastroenterology
DX: K29.50 Unspecified chronic gastritis without bleeding (principal); K22.2 Esophageal obstruction; K44.9 Diaphragmatic hernia without obstruction or gangrene; K21.9 Gastro-esophageal reflux disease without esophagitis; I25.10 Atherosclerotic heart disease of native coronary artery without angina pectoris; I10 Essential (primary) hypertension; E78.5 Hyperlipidemia, unspecified; E07.9 Disorder of thyroid, unspecified; Z88.2 Allergy status to sulfonamides; Z88.8 Allergy status to other drugs, medicaments and biological substances; Z88.5 Allergy status to narcotic agent; Z79.890 Hormone replacement therapy; Z79.899 Other long term (current) drug therapy; Z79.82 Long term (current) use of aspirin; Z95.5 Presence of coronary angioplasty implant and graft; Z98.890 Other specified postprocedural states
CPT/HCPCS: 88305; 88342; 43239; 43249; J2704; C1726

== ENCOUNTER → 2023-07-04 | Outpatient (CLI) | payer MEDICARE, BC ==
[2023-07-04 11:00] VITALS: BP 142/74; PULSE 72; RESP 15; TEMP 98.4
--- NOTE | 2023-07-04 14:01 | P.PAINPG ---
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 Pt states she experienced 60 % pain relief s/p procedure. Pain level is provoked at 7 /10 in intensity, constant, localized in the lumbar spine, predominantly axial, sharp in character without shooting pain. Pain is provoked by walking/ standing for periods of 10 min or more. Pain is alleviated with PT integrated w massage x 6 wks in Mar 2023, injections, heat, ice, medications, topicals, repositioning and rest. Oswestry axial pain score of 34. Interventional procedures include JUAN L1-L2, BL RFA L3 - L5 (Mar 2022, Sep 2022, May 2023), BL T6-T7, T7-T8 (Mar 2021) Patient is currently on [place] 5/325mg #90, Ibu Patient denies any side effects of the medication(s), denies excessive drowsiness or sleepiness, denies suicidal ideation and reports that the current pain medication is helping to control the pain and improve activities of daily living. Patient denies any motor or sensory deficits. Patient denies any fever or night sweats, denies any change in the bowel movements or urination. Physical Examination: -Constitutional: Cooperative. Not in acute distress . - Neurologic: Cranial nerve II to XII intact. No focal neurological deficits. - Psychatric: Alert & oriented x 3. Matching mood & appropriate affect. Judgment and insight intact. - Musculoskeletal: Cervical spine: Muscle bulk/ tone/ strength in the bilateral upper extremities normal Vertebral body tenderness to palpation over Spurling test positive Distraction test positive Facet loading test positive TTP Thoracic spine Muscle bulk / tone/ strength in the bilateral paraspinal muscles normal Vertebral body tender to palpation Facet loading test positive TTP Lumbar spine: Motor bulk/ tone/ strength lower extremities , thigh and legs : 5/5 Deep tendon reflexes : Normal Knee Jerk. Normal Ankle Jerk . Vertebral body tenderness to palpation Lumbar Facet Loading Test positive over BL L4-L5, L5-S1 Straight Leg Raise: positive at 30 degrees right side/ left side Gaenslen's Test positive Sacral spine : Severe tenderness over the Sacroiliac joint: right side / left side Range of motion: Flexion of the lumbar spine <60 degrees Range of motion: Extension of the lumbar spine <20 degrees Gaenslen's Test positive right side / left side Casey test: positive right side / left side Thigh Thrust Test positive right side / left side Sacral Thrust Test positive right side / left side Assessment and plan: Chronic LBP secondary to DDD, spondylosis with 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 The patient was counseled about risk of opioid use, psychological risk associated with opioids and was orally counseled to not overuse , divert or sell medications. Pt is to store medication in a safe location. The patient is counseled against driving while using narcotic medications and also not to use alcohol or any illicit recreational drugs. Patient verbalized understanding that the lack of compliance will result in failure to renew narcotic prescription(s) as well as possible discharge from the clinic Diagnoses, prognosis and treatment options including but not limited to physical therapy, surgical interventions, interventional therapies and medication management including narcotics and adjuvant medication were discussed. All patient questions answered MAPS reviewed and it was appropriate. Narcotic agreement up to date. UDS fr 02/04/23 reviewed and consistent. Prescription refill for [place] 5/325mg #90 w 1 RF. I have spent less than 30 minutes on patient care today. Dr Holland was available by phone for the evaluation of this patient. The time was used to review the medical records including relevant urine studies and Prescription history (MAPs), review of the available imaging, evaluation and examination of the patient, coordination of care with the medical staff and if applicable referring physicians, as well as creation of the medical record PQRS Narrative: Smoking Status Former smoker Narcotic Agreement Date Signed 02/04/23 Hx Alcohol Use (MH) Yes: rare Home Medications: Ambulatory Orders Cholecalciferol [Vitamin D3 (25 Mcg = 1000 Iu)] 50 mcg PO DAILY 05/03/15 Levothyroxine Sodium 25 mcg PO QAM 10/01/19 Atorvastatin [Lipitor] 40 mg PO DAILY tab 12/14/21 Metoprolol Tartrate [Lopressor] 25 mg PO QAM 03/21/22 Aspirin 81 mg PO DAILY 07/12/22 Denosumab [Prolia] 60 mg SQ DIRECTED 12/10/22 Calcium Carbonate [Calcium] 600 mg PO DAILY 06/28/23 Losartan [Cozaar] 25 mg PO 1200 06/28/23 HYDROcodone/APAP 5-325MG [[place] 5-325] 1 tab PO TID PRN 30 Days #90 tab 07/04/23 HYDROcodone/APAP 5-325MG [[place] 5-325] 1 tab PO TID PRN 30 Days #90 tab 07/04/23 Controlled Substance Measures - Controlled Substance Measures Is patient prescribed a controlled substance at discharge?: Yes When asked, does pt state using other controlled substances?: No If prescribed controlled substance>3 days was MAPS reviewed?: Yes
== END ==
LOC: PNWHC3 10:03
PROVIDERS: ATTEND Specialist
DX: M51.37 Other intervertebral disc degeneration, lumbosacral region (principal); M47.817 Spondylosis without myelopathy or radiculopathy, lumbosacral region; G89.29 Other chronic pain; Z79.891 Long term (current) use of opiate analgesic; Z87.891 Personal history of nicotine dependence; Z91.09 Other allergy status, other than to drugs and biological substances; Z88.2 Allergy status to sulfonamides; Z88.5 Allergy status to narcotic agent
CPT/HCPCS: 99211

== ENCOUNTER → 2023-08-01 | Outpatient (CLI) | payer MEDICARE, BC | END | disposition home or self-care (01) | LOC: LABWHC1 07:44 | PROVIDERS: ATTEND Internal Medicine Interventional Cardiology | DX: E78.2 Mixed hyperlipidemia (principal) ==

== ENCOUNTER → 2023-08-28 | Outpatient (CLI) | payer MEDICARE, BC ==
[2023-08-28 14:50] LABS: HCT 44.6 % (37.2-46.3); HGB 14.5 g/dL (12.0-15.0); MCH 30.5 pg (27.0-32.0); MCHC 32.5 g/dL (32.0-37.0); MCV 93.7 FL (80.0-97.0); Mean Platelet Volume 9.6 FL (9.5-12.2); NRBC Per 100 WBC 0 X 10*3/uL (0.00-0.01); Platelet Count 276 X 10*3/uL (140-440); RBC 4.76 X 10*6/uL (4.10-5.20); RDW 12.7 % (11.5-14.5); WBC 5.07 X 10*3/uL (4.50-10.00)
[2023-08-28 15:09] LABS: Blood Urea Nitrogen 19.6 mg/dL (9.0-27.0); Chloride 102 mmol/L (96-109); Potassium 4.7 mmol/L (3.5-5.5); Sodium 138 mmol/L (135-145)
== END | disposition home or self-care (01) ==
LOC: LABPAT 08:41
PROVIDERS: ATTEND Internal Medicine Interventional Cardiology
DX: Z01.812 Encounter for preprocedural laboratory examination (principal); R94.39 Abnormal result of other cardiovascular function study
CPT/HCPCS: 36415; 80051; 82565; 84520; 85027

== ENCOUNTER → 2023-08-29 | Outpatient (CLI) | payer MEDICARE, BC ==
[2023-08-29 12:18] VITALS: BP 124/76; PULSE 56; RESP 16
--- NOTE | 2023-08-29 14:51 | P.PAINPG ---
PQRS Measure Charge Sheet Comment: A 82 yr old female with a history of severe and chronic mid and lower back pain secondary to thoracolumbar DDD and spondylosis with facet arthropathy without myelopathy presents today for evaluation for medication refills. Pain level is provoked at 7 /10 in intensity, constant, localized in the lumbar spine, predominantly axial, sharp in character without shooting pain. Pain is provoked by walking/ standing for periods of 10 min or more. Pain is alleviated with PT integrated w massage x 6 wks in Mar 2023, physician guided home exercise/ stretching regimen daily since Mar 2023 (thoracic and lumbar), injections, heat, ice, medications, topicals, repositioning and rest. Oswestry axial pain score of 33. Interventional procedures include JUAN L1-L2, BL RFA L3 - L5 (Mar 2022, Sep 2022, May 2023), BL T6-T7, T7-T8 (Mar 2021) Patient is currently on [place] 5/325mg #90, Ibu Patient denies any side effects of the medication(s), denies excessive drowsiness or sleepiness, denies suicidal ideation and reports that the current pain medication is helping to control the pain and improve activities of daily living. Patient denies any motor or sensory deficits. Patient denies any fever or night sweats, denies any change in the bowel movements or urination. Physical Examination: -Constitutional: Cooperative. Not in acute distress . - Neurologic: Cranial nerve II to XII intact. No focal neurological deficits. - Psychatric: Alert & oriented x 3. Matching mood & appropriate affect. Judgment and insight intact. - Musculoskeletal: Cervical spine: Muscle bulk/ tone/ strength in the bilateral upper extremities normal Vertebral body tenderness to palpation over Spurling test positive Distraction test positive Facet loading test positive TTP Thoracic spine Muscle bulk / tone/ strength in the bilateral paraspinal muscles normal Vertebral body tender to palpation over T6 Facet loading test positive TTP Lumbar spine: Motor bulk/ tone/ strength lower extremities , thigh and legs : 5/5 Deep tendon reflexes : Normal Knee Jerk. Normal Ankle Jerk . Vertebral body tenderness to palpation Lumbar Facet Loading Test positive over BL L4-L5, L5-S1 Straight Leg Raise: positive at 30 degrees right side/ left side Gaenslen's Test positive Sacral spine : Severe tenderness over the Sacroiliac joint: right side / left side Range of motion: Flexion of the lumbar spine <60 degrees Range of motion: Extension of the lumbar spine <20 degrees Gaenslen's Test positive right side / left side Casey test: positive right side / left side Thigh Thrust Test positive right side / left side Sacral Thrust Test positive right side / left side Assessment and plan: Chronic mid and lower back pain secondary to DDD, spondylosis with facet arthropathy without myelopathy Recommendation of thoracic and lumbar x rays, M51.34, M51.36 May need additiona testing if indicated. Chronic and current use of high-risk medication (Opioids). The patient was counseled about risk of opioid use, psychological risk associated with opioids and was orally counseled to not overuse , divert or sell medications. Pt is to store medication in a safe location. The patient is counseled against driving while using narcotic medications and also not to use alcohol or any illicit recreational drugs. Patient verbalized understanding that the lack of compliance will result in failure to renew narcotic prescription(s) as well as possible discharge from the clinic Diagnoses, prognosis and treatment options including but not limited to physical therapy, surgical interventions, interventional therapies and medication management including narcotics and adjuvant medication were discussed. All patient questions answered MAPS reviewed and it was appropriate. Narcotic agreement up to date. UDS fr 02/04/23 reviewed and consistent. Prescription refill for [place] 5/325mg #90 w 1 RF. Add Robaxin 500mg #90 w 1 RF. I have spent less than 30 minutes on patient care today. Dr Holland was available by phone for the evaluation of this patient. The time was used to review the medical records including relevant urine studies and Prescription history (MAPs), review of the available imaging, evaluation and examination of the patient, coordination of care with the medical staff and if applicable referring physicians, as well as creation of the medical record PQRS Narrative: Smoking Status Former smoker Narcotic Agreement Date Signed 02/04/23 Hx Alcohol Use (MH) Yes: rare Home Medications: Ambulatory Orders Cholecalciferol [Vitamin D3 (25 Mcg = 1000 Iu)] 50 mcg PO DAILY 05/03/15 Levothyroxine Sodium 25 mcg PO QAM 10/01/19 Atorvastatin [Lipitor] 40 mg PO DAILY tab 12/14/21 Metoprolol Tartrate [Lopressor] 25 mg PO QAM 03/21/22 Aspirin 81 mg PO DAILY 07/12/22 Denosumab [Prolia] 60 mg SQ DIRECTED 12/10/22 Calcium Carbonate [Calcium] 600 mg PO DAILY 06/28/23 Losartan [Cozaar] 25 mg PO 1200 06/28/23 HYDROcodone/APAP 5-325MG [[place] 5-325] 1 tab PO TID PRN 30 Days #90 tab 08/29/23 HYDROcodone/APAP 5-325MG [[place] 5-325] 1 tab PO TID PRN 30 Days #90 tab 08/29/23 methocarbamoL [Robaxin] 500 mg PO TID PRN 30 Days #90 tab 08/29/23 Controlled Substance Measures - Controlled Substance Measures Is patient prescribed a controlled substance at discharge?: Yes When asked, does pt state using other controlled substances?: Yes If prescribed controlled substance>3 days was MAPS reviewed?: Yes
== END ==
LOC: PNWHC3 10:37
PROVIDERS: ATTEND Specialist
DX: M51.37 Other intervertebral disc degeneration, lumbosacral region (principal); M47.817 Spondylosis without myelopathy or radiculopathy, lumbosacral region; Z79.891 Long term (current) use of opiate analgesic; Z87.891 Personal history of nicotine dependence; Z88.2 Allergy status to sulfonamides; Z91.09 Other allergy status, other than to drugs and biological substances; Z88.5 Allergy status to narcotic agent
CPT/HCPCS: 99211

== ENCOUNTER → 2023-08-29 | Outpatient (CLI) | payer MEDICARE, BC ==
--- NOTE | 2023-09-01 20:45 | XR ---
EXAMINATION TYPE: XR thoracic spine 3V, XR lumbar spine 3V DATE OF EXAM: 08/29/2023 COMPARISON: NONE HISTORY: 82-year-old female chronic pain, M51.36, M51.34. FINDINGS: Thoracic spine: Median sternotomy wires and post-CABG clips. Osteopenia. 12 rib-bearing thoracic vertebral bodies. Mi ld degenerative disc disease thoracic spine. Vertebral body heights are preserved and alignment is ma intained. Lumbar spine: Osteopenia. 5 lumbar type vertebral bodies. 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 Degenerative grade 1 anterolisthesis L4-L5. Moderate degenerative disc disea se L3-S1 levels, greatest at L5-S1 with disc space narrowing, bulging disc, and vacuum phenomenon. Ve rtebral body heights are preserved. IMPRESSION (thoracic and lumbar spine): 1. Osteopenia. No vertebral compression collapse. 2. Mild degenerative disc disease upper and mid thoracic spine. 3. Moderate degenerative disc disease mid and lower thoracic spine. 4. Hypertrophic facet arthropathy especially mid and lower lumbar spine with a degenerative grade 1 a nterolisthesis L4-L5. 5. Baastrup's disease.
== END | disposition home or self-care (01) ==
LOC: RADXRMAIN 11:42
PROVIDERS: ATTEND Specialist
DX: M51.36 Other intervertebral disc degeneration, lumbar region (principal); M51.34 Other intervertebral disc degeneration, thoracic region; M47.16 Other spondylosis with myelopathy, lumbar region; M85.80 Other specified disorders of bone density and structure, unspecified site; M47.816 Spondylosis without myelopathy or radiculopathy, lumbar region; M48.26 Kissing spine, lumbar region; M43.16 Spondylolisthesis, lumbar region
CPT/HCPCS: 72070; 72100

== ENCOUNTER → 2023-09-02 | Outpatient (CLI) | payer MEDICARE, BC ==
--- NOTE | 2023-09-02 20:12 | MR ---
EXAMINATION TYPE: MR tspine/lspine wo con DATE OF EXAM: 09/02/2023 7:51 PM CLINICAL INDICATION:Female, 82 years old with history of M51.34,M51.36; PHH, Per pt bulge T-6, Mid an d low back pain into bilat. buttocks and getting worse, difficulty walking, COMPARISON: 08/29/2023 plain film TECHNIQUE: Multi planar, multi sequence imaging was performed utilizing: T1-weighted, T2-weighted, a nd turbo inversion recovery imaging of the thoracic and lumbar spine. IV Contrast: cc . None. FINDINGS: Alignment: The thoracic and lumbar vertebral bodies have preserved heights and alignment within the t horacic spine. In the lumbar spine is grade 1 anterolisthesis of L4 and L5. Scattered disc space narr owing present. Cord: The conus medullaris and the distal spinal cord appear unremarkable with regards to their signa l intensity and morphology. Bones/Discs: Multilevel degeneration with osteophyte formation disc space narrowing and facet joint a rthropathy. Multilevel disc desiccation. Scattered mild inversion recovery signal most compatible wit h degeneration. There is degeneration changes throughout the lumbar spine THORACIC: T6-T7 osteophyte which narrows the ventral subarachnoid space. No evidence significant spinal canal o r neural foraminal stenosis. Spinal cord is within normal limits. LUMBAR: T12-L1: No evidence of significant spinal canal stenosis or neural foraminal stenosis. L1-L2: No evidence of significant spinal canal stenosis or neural foraminal stenosis. L2-L3: Disc bulge and facet joint arthropathy result in mild spinal canal and mild bilateral neural f oraminal stenosis. L3-L4: Disc bulge and facet joint arthropathy result in mild spinal canal and moderate bilateral neur al foraminal stenosis. L4-L5: Disc uncovering from grade 1 anterolisthesis and facet joint arthropathy with mild spinal maury l stenosis and moderate bilateral neural foraminal stenosis. L5-S1: The disc has a rounded posterior morphology without significant spinal canal stenosis. Facet j oint arthropathy with moderate bilateral neural foraminal stenosis. 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 IMPRESSION: 1. No definitive evidence of disc herniation or significant spinal canal stenosis. 2. Lumbar spine disc degeneration with associated osteoarthritic changes neural foraminal stenosis w orse throughout the lumbar spine with at least moderate neural foraminal stenosis. 3. No evidence for significant spinal canal neural foraminal stenosis within the thoracic spine. 4. Grade 1 anterolisthesis of L4 and L5. 5. Moderate degeneration changes most proximal in the lower lumbar spine.
== END | disposition home or self-care (01) ==
LOC: RADMRIMAIN 18:00
PROVIDERS: ATTEND Specialist
DX: M51.34 Other intervertebral disc degeneration, thoracic region (principal); M51.36 Other intervertebral disc degeneration, lumbar region; M47.816 Spondylosis without myelopathy or radiculopathy, lumbar region; M99.73 Connective tissue and disc stenosis of intervertebral foramina of lumbar region; M43.16 Spondylolisthesis, lumbar region
CPT/HCPCS: 72146; 72148

== ENCOUNTER 2023-09-03 06:07 | Day surgery (SDC) | payer MEDICARE, BC ==
[~2023-09-03 06:07] MED LIST changes: +ALPRAZolam 0.25 MG TAB PO PRN; +ALPRAZolam 0.5 MG TAB PO PRN; -LACTATED RINGERS 1,000 ML IV SCH; +NITROGLYCERIN SL TABS 0.4 MG TAB SUBLINGUAL PRN
[2023-09-03] MEDS: ASPIRIN 325 MG TAB PO STA (06:48)
[2023-09-03] MEDS: SODIUM CHLORIDE 0.9% 1,000 ML in EMPTY BAG 1 BAG IV SCH (06:48)
[2023-09-03 07:10] VITALS: RESP 16; TEMP 97.7
[2023-09-03] MEDS: SODIUM CHLORIDE 0.9% 1,000 ML IV ONE (07:16)
[2023-09-03] MEDS: fentaNYL (PF) 50 MCG/ML 2 ML AMP IVP ONE (07:35)
[2023-09-03] MEDS: LIDOCAINE 1% INJ 10MG/ML (20 ML MDV) SQ ONE (07:38)
[2023-09-03] MEDS: VERAPAMIL SYRINGE (5 MG/10 ML) INTRAARTER ONE (07:51)
[2023-09-03] MEDS: HEPARIN SODIUM 1,000 UN/ML (10ML VL) IVP ONE (07:56)
[2023-09-03] MEDS: IOPAMIDOL-370 100ML BTL INJ ONE ×2 (08:08→08:19)
[2023-09-03] MEDS ORDERED: RX INFO: IV CONTRAST WAS GIVEN 1 EACH MISC MISCELLANE PRN (08:38)
[2023-09-03] MEDS ORDERED: SODIUM CHLORIDE 0.9% 1,000 ML IV SCH (08:45)
--- NOTE | 2023-09-03 08:49 | P.CARDCATH ---
Date of Procedure: 09/03/23 Description of Procedure: Cardiac Catheterization: The patient is an 82-year-old female with known history of CAD, status post CABG who has been complaining of chest discomfort and had an abnormal MPI. Recommendations were made regarding cardiac catheterization, the risks and the complications were discussed with the patient who is in full understanding and agreement. Procedure Description: Patient was brought to label sewer in fasting semi-sedated state after receiving Fentanyl and Benadryl achieiving moderate conscious sedated state. Using Xylocaine Anesthesia and modified Seldinger technique, a 6-Serbian sheath was introduced in the left radial artery . Subsequently, selective coronary angiography was performed using a 5-Serbian 4 bend Jose catheter. Multiple views of the coronary artery including hemiaxial views were obtained. The right Jose was used to cannulate the SVG to the OM and the RCA and a 6 Serbian DAVID catheter was used to cannulate the CHEN. Images of the grafts were obtained. The left Jose catheter was used to cross the aortic valve and LVEDP was calculated. Following that, catheter and sheath were removed. Hemostasis was obtained with deployment of vascular band . There was no immediate complication. Patient was returned to room in stable condition. Of note, the patient received a total of 3500 units of intravenous heparin as well as intra-arterial verapamil. Findings: Fluoroscopy: Severe calcifications of the coronary arteries was noted. Left main: This is a short size vessel, bifurcating into LAD and left circumflex, left main has no high-grade stenosis LAD: This is a heavily calcified vessel, has diffuse disease throughout its course with a area of stenosis of 80 to 90% proximally and competitive flow in the midsegment with diffuse intimal disease in the midsegment. Left circumflex: This is a nondominant vessel calcified giving rise to a first obtuse marginal branch that has competitive flow. The proximal left circumflex has a 95% stenosis RCA: This vessel is a dominant vessel heavily calcified chronically occluded in the distal segment with collaterals from the left coronary system to the right PLV SVG to the RCA the proximal and distal anastomotic site are patent the flow in the PDA is brisk there is no evidence of high-grade stenosis SVG to the OM and the diagonal branch: The proximal and distal anastomotic site are patent. This is a jump graft and there is good flow into the OM and the diagonal branch CHEN to the LAD: There is slow flow in the LAD with competitive flow but the grafts appear to be patent with no evidence of obstructive disease Left Ventriculogram: Not performed Hemodynamics: There was no gradient across the aortic valve, LVEDP was 14-16 mmHg Conclusion: 1. Severely calcified coronary arteries 2. Severe triple-vessel disease 3. Patent CHEN to the LAD with competitive flow 4. Patent jump graft to the OM and diagonal branch 5. Patent saphenous vein graft to the PDA Recommendations: I have recommended to continue medical therapy with the aggressive coronary risks modification that has been initiated. The findings and the recommendations were discussed with the patient and the family and they were in full understanding and agreement. Duration of sedation is 44 minutes.
[2023-09-03 11:19] VITALS: PULSE 62
[2023-09-03 14:31] VITALS: BP 133/77
[2023-09-03] MEDS ORDERED: ATORVASTATIN 40 MG TAB PO SCH (21:00)
[2023-09-04] MEDS ORDERED: LEVOTHYROXINE 25 MCG TAB PO SCH (06:30)
[2023-09-04] MEDS ORDERED: ASPIRIN 81 MG PO SCH (09:00)
[2023-09-04] MEDS ORDERED: METOPROLOL TARTRATE 25 MG TAB PO SCH (09:00)
[2023-09-04] MEDS ORDERED: ISOSORBIDE MONONITRATE ER 15 MG TAB PO SCH (09:00)
[2023-09-04] MEDS ORDERED: LOSARTAN 25 MG TAB PO SCH (12:00)
== END 2023-09-03 12:47 | disposition home or self-care (01) ==
LOC: CATHCVL 06:07
PROVIDERS: ATTEND Internal Medicine Interventional Cardiology
DX: I25.10 Atherosclerotic heart disease of native coronary artery without angina pectoris (principal); E78.5 Hyperlipidemia, unspecified; I10 Essential (primary) hypertension; M19.90 Unspecified osteoarthritis, unspecified site; E07.9 Disorder of thyroid, unspecified; Z88.2 Allergy status to sulfonamides; Z88.0 Allergy status to penicillin; Z88.8 Allergy status to other drugs, medicaments and biological substances; Z95.5 Presence of coronary angioplasty implant and graft; Z87.891 Personal history of nicotine dependence; Z79.890 Hormone replacement therapy; Z79.899 Other long term (current) drug therapy
CPT/HCPCS: 93459; C1769 ×2; C1894; J2001; J3010; J1644; Q9967

== ENCOUNTER → 2023-09-11 | Outpatient (CLI) | payer MEDICARE, BC ==
[2023-09-11] MEDS: DENOSUMAB 60 MG/ML 1 ML SYRINGE SQ NR (11:55)
[2023-09-11 12:02] VITALS: BP 115/74; PULSE 65; RESP 16; TEMP 97.6
== END ==
LOC: PROCWHC3 11:44
PROVIDERS: ATTEND Internal Medicine
DX: M81.0 Age-related osteoporosis without current pathological fracture (principal)
CPT/HCPCS: 96372; J0897

== ENCOUNTER → 2023-10-24 | Outpatient (CLI) | payer MEDICARE, BC ==
[2023-10-25 07:54] LABS: Serum Amphetamine Negative; Serum Barbiturates Negative; Serum Benzodiazepine Negative; Serum Cocaine Negative; Serum Methadone Negative; Serum Opiates Negative; Serum Phencyclidine Negative; Serum Propoxyphene Negative; Serum THC (Cannabis) Negative
== END | disposition home or self-care (01) ==
LOC: LABWHC1 14:10
PROVIDERS: ATTEND Specialist
DX: Z02.83 Encounter for blood-alcohol and blood-drug test (principal)
CPT/HCPCS: 36415; 80307

== ENCOUNTER → 2023-10-24 | Outpatient (CLI) | payer MEDICARE, BC ==
[2023-10-24 13:49] VITALS: BP 134/84; PULSE 65; RESP 16
--- NOTE | 2023-10-24 15:06 | P.PAINPG ---
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 Pain level is provoked at 7 /10 in intensity, constant, localized in the lumbar spine, pre dominantly axial, sharp in character without shooting pain. Pain is provoked by walking/ standing for periods of 10 min or more. Pain is alleviated with PT integrated w massage x 6 wks in Mar 2023, physician guided home exercise/ stretching regimen daily since Mar 2023 (thoracic and lumbar), injections, heat, ice, medications, topicals, repositioning and rest. Oswestry axial pain score of 33. Interventional procedures include JUAN L1-L2, BL RFA L3 - L5 (Mar 2022, Sep 2022, May 2023), BL T6-T7, T7-T8 (Mar 2021) Patient is currently on [place] 5/325mg #90, Ibu Patient denies any side effects of the medication(s), denies excessive drowsiness or sleepiness, denies suicidal ideation and reports that the current pain medication is helping to control the pain and improve activities of daily living. Patient denies any motor or sensory deficits. Patient denies any fever or night sweats, denies any change in the bowel movements or urination. Physical Examination: -Constitutional: Cooperative. Not in acute distress . - Neurologic: Cranial nerve II to XII intact. No focal neurological deficits. - Psychatric: Alert & oriented x 3. Matching mood & appropriate affect. Judgment and insight intact. - Musculoskeletal: Cervical spine: Muscle bulk/ tone/ strength in the bilateral upper extremities normal Vertebral body tenderness to palpation over Spurling test positive Distraction test positive Facet loading test positive TTP Thoracic spine Muscle bulk / tone/ strength in the bilateral paraspinal muscles normal Vertebral body tender to palpation over T6 Facet loading test positive TTP Lumbar spine: Motor bulk/ tone/ strength lower extremities , thigh and legs : 5/5 Deep tendon reflexes : Normal Knee Jerk. Normal Ankle Jerk . Vertebral body tenderness to palpation Taut bands w twitch response over BL L2- S1 Lumbar Facet Loading Test positive over BL L4-L5, L5-S1 Straight Leg Raise: positive at 30 degrees right side/ left side Gaenslen's Test positive Sacral spine : Severe tenderness over the Sacroiliac joint: right side / left side Range of motion: Flexion of the lumbar spine <60 degrees Range of motion: Extension of the lumbar spine <20 degrees Gaenslen's Test positive right side / left side Casey test: positive right side / left side Thigh Thrust Test positive right side / left side Sacral Thrust Test positive right side / left side Imaging: MRI non contrast of the thoracic and lumbar spine from Aug 2023 reviewed Assessment and plan: Chronic mid and lower back pain secondary to DDD, spondylosis with facet arthropathy without myelopathy Recommendation of BL TPIs L2-S1 #1. Risks, benefits of procedure discussed and pt verbalized understanding. All questions answered. Chronic and current use of high-risk medication (Opioids). The patient was counseled about risk of opioid use, psychological risk associated with opioids and was orally counseled to not overuse , divert or sell medications. Pt is to store medication in a safe location. The patient is counseled against driving while using narcotic medications and also not to use alcohol or any illicit recreational drugs. Patient verbalized understanding that the lack of compliance will result in failure to renew narcotic prescription(s) as well as possible discharge from the clinic Diagnoses, prognosis and treatment options including but not limited to physical therapy, surgical interventions, interventional therapies and medication management including narcotics and adjuvant medication were discussed. All patient questions answered MAPS reviewed and it was appropriate. Narcotic agreement up to date. Blood tox screen 10/24/23 Z02.83 Prescription refill for [place] 5/325mg #90 w 1 RF. I have spent less than 30 minutes on patient care today. Dr Holland was available by phone for the evaluation of this patient. The time was used to review the medical records including relevant urine studies and Prescription history (MAPs), review of the available imaging, evaluation and examination of the patient, coordination of care with the medical staff and if applicable referring physicians, as well as creation of the medical record - Pain Location Bilateral Lower Back Non-Pharmacological Interventions: Heat, Home Exercise, Ice, Inactivity, Physical Therapy, Stretching Pharmacological Interventions: Block, Epidural, Scheduled Medication PQRS Narrative: Smoking Status Former smoker Narcotic Agreement Date Signed 02/04/23 Hx Alcohol Use (MH) Yes: rare Home Medications: Ambulatory Orders Cholecalciferol [Vitamin D3 (25 Mcg = 1000 Iu)] 50 mcg PO DAILY 05/03/15 Levothyroxine Sodium 25 mcg PO QAM 10/01/19 Atorvastatin [Lipitor] 40 mg PO DAILY tab 12/14/21 Metoprolol Tartrate [Lopressor] 25 mg PO QAM 03/21/22 Aspirin 81 mg PO DAILY 07/12/22 Losartan [Cozaar] 25 mg PO 1200 06/28/23 ALPRAZolam [Xanax] 0.25 mg PO DAILY PRN 08/30/23 HYDROcodone/APAP 5-325MG [[place] 5-325] 1 tab PO TID PRN 30 Days #90 tab 10/24/23 HYDROcodone/APAP 5-325MG [[place] 5-325] 1 tab PO TID PRN 30 Days #90 tab 10/24/23 Controlled Substance Measures - Controlled Substance Measures Is patient prescribed a controlled substance at discharge?: Yes When asked, does pt state using other controlled substances?: No If prescribed controlled substance>3 days was MAPS reviewed?: Yes
== END ==
LOC: PNWHC3 13:21
PROVIDERS: ATTEND Specialist
DX: M51.37 Other intervertebral disc degeneration, lumbosacral region (principal); M47.817 Spondylosis without myelopathy or radiculopathy, lumbosacral region; Z79.891 Long term (current) use of opiate analgesic; Z87.891 Personal history of nicotine dependence; Z91.09 Other allergy status, other than to drugs and biological substances; Z88.2 Allergy status to sulfonamides; Z88.5 Allergy status to narcotic agent
CPT/HCPCS: 99211

== ENCOUNTER 2023-11-07 12:45 | Day surgery (SDC) | payer MEDICARE, BC ==
[2023-11-07] MEDS ORDERED: ROPIVACAINE 5MG/ML 20ML VIAL ONE (13:08)
[2023-11-07] MEDS ORDERED: methylPREDNISolone ACETATE 40 MG/ML 1 ML VIAL ONE (13:08)
== END 2023-11-07 13:47 | disposition home or self-care (01) ==
LOC: ORPAIN 12:45
PROVIDERS: ATTEND Anesthesiology
DX: M79.18 Myalgia, other site (principal); M51.36 Other intervertebral disc degeneration, lumbar region; I25.10 Atherosclerotic heart disease of native coronary artery without angina pectoris; Z88.2 Allergy status to sulfonamides; Z88.5 Allergy status to narcotic agent; Z91.09 Other allergy status, other than to drugs and biological substances; Z87.891 Personal history of nicotine dependence; Z79.890 Hormone replacement therapy; Z79.82 Long term (current) use of aspirin; Z79.899 Other long term (current) drug therapy
CPT/HCPCS: 20553

== ENCOUNTER → 2023-11-28 | Outpatient (CLI) | payer MEDICARE, BC ==
[2023-11-28 11:26] VITALS: BP 126/83; PULSE 57; RESP 16
--- NOTE | 2023-11-28 14:41 | P.PAINPG ---
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 She had BL TPIs L2-S1 but states she only experienced 40% pain relief s/p procedure. Pt states she underwent a BL RFA L4-L5/ L5-S1 in May 2022 where she experienced 75% pain relief x 6 mo s/p procedure. Pain level is provoked at 7 /10 in intensity, constant, localized in the lumbar spine, predominantly axial, sharp in character without shooting pain. Pain is provoked by walking/ standing for periods of 10 min or more. Pain is alleviated with PT integrated w massage x 6 wks in Mar 2023, physician guided home exercise/ stretching regimen daily since Mar 2023 (thoracic and lumbar), injections, heat, ice, medications, topicals, repositioning and rest. Pt tries to wean herself off [place] 5/325mg, only taking it when she is in extreme pain. Per MAPS, she still has a script post dated to fill 11/21/23 that has not been filled. Interventional procedures include JUAN L1-L2, BL RFA L3 - L5 (Mar 2022, Sep 2022, May 2023), BL T6-T7, T7-T8 (Mar 2021) Patient is currently on [place] 5/325mg #90, Ibu Patient denies any side effects of the medication(s), denies excessive d rowsiness or sleepiness, denies suicidal ideation and reports that the current pain medication is helping to control the pain and improve activities of daily living. Patient denies any motor or sensory deficits. Patient denies any fever or night sweats, denies any change in the bowel movements or urination. Physical Examination: -Constitutional: Cooperative. Not in acute distress . - Neurologic: Cranial nerve II to XII intact. No focal neurological deficits. - Psychatric: Alert & oriented x 3. Matching mood & appropriate affect. Judgment and insight intact. - Musculoskeletal: Cervical spine: Muscle bulk/ tone/ strength in the bilateral upper extremities normal Vertebral body tenderness to palpation over Spurling test positive Distraction test positive Facet loading test positive TTP Thoracic spine Muscle bulk / tone/ strength in the bilateral paraspinal muscles normal Vertebral body tender to palpation over T6 Facet loading test positive TTP Lumbar spine: Motor bulk/ tone/ strength lower extremities , thigh and legs : 5/5 Deep tendon reflexes : Normal Knee Jerk. Normal Ankle Jerk . Vertebral body tenderness to palpation Taut bands w twitch response over BL L2- S1 Lumbar Facet Loading Test positive over BL L4-L5, L5-S1 Straight Leg Raise: positive at 30 degrees right side/ left side Gaenslen's Test positive Sacral spine : Severe tenderness over the Sacroiliac joint: right side / left side Range of motion: Flexion of the lumbar spine <60 degrees Range of motion: Extension of the lumbar spine <20 degrees Gaenslen's Test positive right side / left side Casey test: positive right side / left side Thigh Thrust Test positive right side / left side Sacral Thrust Test positive right side / left side Imaging: MRI non contrast of the thoracic and lumbar spine from Aug 2023 reviewed Assessment and plan: Chronic mid and lower back pain secondary to DDD, spondylosis with facet arthropathy without myelopathy Recommendation of BL RFA L4-L5, L5-S1. Risks, benefits of procedure discussed and pt verbalized understanding. Minimal anesthesia including Fentanyl and Versed if clinically indicated. All questions answered. Chronic and current use of high-risk medication (Opioids). The patient was counseled about risk of opioid use, psychological risk associated with opioids and was orally counseled to not overuse , divert or sell medications. Pt is to store medication in a safe location. The patient is counseled against driving while using narcotic medications and also not to use alcohol or any illicit recreational drugs. Patient verbalized understanding that the lack of compliance will result in failure to renew narcotic prescription(s) as well as possible discharge from the clinic Diagnoses, prognosis and treatment options including but not limited to physical therapy, surgical interventions, interventional therapies and medication management including narcotics and adjuvant medication were discuss ed. All patient questions answered MAPS reviewed and it was appropriate. Narcotic agreement up to date. Blood tox screen 10/24/23 Z02.83 reviewed. Repeat UDS 11/28/23. Prescription refill for [place] 5/325mg #90 w 1 RF. I have spent less than 30 minutes on patient care today. Dr Holland was available by phone for the evaluation of this patient. The time was used to review the medical records including relevant urine studies and Prescription history (MAPs), review of the available imaging, evaluation and examination of the patient, coordination of care with the medical staff and if applicable referring physicians, as well as creation of the medical record - Pain Location Lower Back Non-Pharmacological Interventions: Position/Reposition Pharmacological Interventions: Epidural, PRN Medication PQRS Narrative: Smoking Status Former smoker Narcotic Agreement Date Signed 02/04/23 Hx Alcohol Use (MH) Yes: rare Home Medications: Ambulatory Orders Cholecalciferol [Vitamin D3 (25 Mcg = 1000 Iu)] 50 mcg PO DAILY 05/03/15 Levothyroxine Sodium 25 mcg PO QAM 10/01/19 Atorvastatin [Lipitor] 40 mg PO DAILY tab 12/14/21 Metoprolol Tartrate [Lopressor] 25 mg PO QAM 03/21/22 Aspirin 81 mg PO DAILY 07/12/22 Losartan [Cozaar] 25 mg PO 1200 06/28/23 ALPRAZolam [Xanax] 0.25 mg PO DAILY PRN 08/30/23 HYDROcodone/APAP 5-325MG [[place] 5-325] 1 tab PO TID PRN 30 Days #90 tab 11/28/23 HYDROcodone/APAP 5-325MG [[place] 5-325] 1 tab PO TID PRN 30 Days #90 tab 11/28/23 Controlled Substance Measures - Controlled Substance Measures Is patient prescribed a controlled substance at discharge?: Yes When asked, does pt state using other controlled substances?: No If prescribed controlled substance>3 days was MAPS reviewed?: Yes
== END ==
LOC: PNWHC3 10:27
PROVIDERS: ATTEND Specialist
DX: M54.16 Radiculopathy, lumbar region
CPT/HCPCS: 80307; 99211

== ENCOUNTER 2024-01-17 08:37 | Day surgery (SDC) | payer MEDICARE, BC ==
[2024-01-17] MEDS: LACTATED RINGERS 1,000 ML IV SCH (10:20)
[2024-01-17] MEDS: IV FLUID CONTINUATION 1,000 ML IV ONE ×3 (10:21→11:36)
[2024-01-17 10:24] VITALS: TEMP 97.3
[2024-01-17] MEDS ORDERED: fentaNYL (PF) 50 MCG/ML 2 ML AMP ONE (10:44)
[2024-01-17] MEDS ORDERED: ROPIVACAINE 5MG/ML 20ML VIAL ONE (10:44)
[2024-01-17] MEDS ORDERED: MIDAZOLAM 2 MG/2 ML VIAL ONE (10:44)
--- NOTE | 2024-01-17 11:24 | P.PCN ---
Description of Procedure: Preprocedure diagnosis. 1. Lumbar spondylosis with facet joint arthropathy without myelopathy. 2. Lumbar degenerative disc disease. Procedure diagnosis. 1. Lumbar spondylosis with facet joint arthropathy without myelopathy. Space 2. Lumbar degenerative disc disease. Procedure.Bilateral radiofrequency thermocoagulation L3, L4 and L5 medial branch, with fluoroscopic guidance (fluoroscopy images are available in the radiology department) (to Denervate the facet joint at bilateral L4- 5 and L5-S1 levels) Anesthesia. Moderate sedation with intravenous Versed 2 mg and fentanyl 150 g and local infiltration with Lidocaine. Continuous pulse OX,BP,EKG and verbal communication was maintained with patient. Time. EBL minimal. Procedure indication. The patient with low back pain secondary to lumbar facet arthropathy who he had more than 50% relief of her pain with previous diagnostic lumbar medial branch block with local anesthetics.The patient was seen and identified in the preoperative area. Risks: Benefits, complications, including but not limited to risk of infection, bleeding, ALLERGIC reaction to the medica tions and no complete pain relief and alternatives were discussed with the patient, the patient admitted to proceed with the procedure and signed the consent. Procedure description/technique. Patient was taken to the OR and timeout was completed. The patient was placed in prone position on the procedure table. The lumbar area was prepped and draped in the usual sterile fashion. After injecting 5 ml of 1% Lidocaine subcutaneously,using AP and then oblique, lateral view of fluoroscopy, 18-gauge 100 mm radiofrequency cannula with a 10 mm active tip was advanced and guided by fluoroscopy at the junction of supirior articular process with RIGHT ala of the sacrum, transverse process of L4&L5. Each site then underwent positive sensory testing with 50 Hz and 0-1 V and negative motor testing at 2.5 Hz and 0-3 V with local stimulation but no radicular symptoms down the leg. Thereafter each sites underwent radiofrequency thermocoagulation at 80C for 90 seconds after injecting 1 mL of preservative- free 0.5% ropivacaine. Repeat radiofrequency ablation was done at each points after rotating the needle 180 with same setting. This same procedure was repeated twice on the LEFT side at the junction of superior articular process with ala of sacrum,transverse process of L4, L5 with the same settings after positive sensory,negative motor stimulation and infiltration of 1.0 ml 5% Ropivacaine at each site . RF needles were taken out. At the end of the procedure the skin was cleansed and Band-Aids were applied. Disposition patient tolerated the procedure well. No complication. She was placed in supine position and transferred to the recovery area in stable condition for observation and was discharged home from recovery room after meeting discharge criteria. Discharge instructions given to the patient by the staff. The patient were examined prior to discharge the patient will schedule a follow-up in the clinic in 2-4 weeks.
[2024-01-17 11:41] VITALS: RESP 16
[2024-01-17 11:58] VITALS: BP 156/78; PULSE 63
--- NOTE | 2024-01-17 12:06 | FL ---
EXAMINATION TYPE: FL guided pain mgmt statistic DATE OF EXAM: 01/17/2024 11:29 AM COMPARISON: Pre Operative Images if available both CT/MRI or plain film CLINICAL INDICATION: Female, 83 years old with history of [place] Lumbar Rad Freq; TECHNIQUE: FL guided pain mgmt statistic, multiple fluoroscopic images provided for procedure. Total fluoroscopy time: 62 seconds Total submitted images to PACS: 4 DAP: [id number] mGym2 Gycm2 uGym2 cGycm2 or equivalent. FINDINGS: Fluoroscopic images during injection for pain management demonstrate multilevel degeneration changes throughout the spine. No evidence for fracture. No acute process identified. IMPRESSION: 1. No evidence for intraoperative complication. 2. Please see the operative/procedural note for further details. [facility], , 01/17/2024 12:03 PM
== END 2024-01-17 12:17 | disposition home or self-care (01) ==
LOC: ORPAIN 08:37
PROVIDERS: ATTEND Pain Medicine Interventional Pain Medicine
DX: M47.816 Spondylosis without myelopathy or radiculopathy, lumbar region (principal)
CPT/HCPCS: 99152; 99153

== ENCOUNTER → 2024-02-20 | Outpatient (CLI) | payer MEDICARE, BC ==
[2024-02-20 12:47] VITALS: BP 109/64; PULSE 80; RESP 16
--- NOTE | 2024-02-20 14:20 | P.PAINPG ---
PQRS Measure Charge Sheet Comment: A 83 yr old female with a history of severe and chronic mid and lower back pain secondary to thoracolumbar radiculopathy, spondylosis with facet arthropathy without myelopathy presents today for evaluation for medication refills and evaluation s/p BL RFA L4-L5, L5-S1. Pt states she experienced 60 % pain relief s/p procedure. Pain level is provoked at 5 /10 in intensity, constant, localized in the lumbar spine, predominantly axial, dull in character without shooting pain. Pain is provoked by walking/ standing for periods of 10 min or more. Pain is alleviated with PT integrated w massage x 6 wks in Mar 2023, physician guided home exercise/ stretching regimen daily since Mar 2023 (thoracic and lumbar), injections, heat, ice, medications, topicals, repositioning and rest. Pt tries to wean herself off [place] 5/325mg, only taking it when she is in extreme pain. Per MAPS, she still has a script post dated to fill 11/21/23 that has not been filled. Interventional procedures include JUAN L1-L2, BL RFA L3 - L5 x4 (Mar 2022, Sep 2022, May 2023, Dec 2023), BL T6-T7, T7-T8 (Mar 2021) Patient is currently on [place] 5/325mg #90, Ibu Patient denies any side effects of the medication(s), denies excessive drowsiness or sleepiness, denies suicidal ideation and reports that the current pain medication is helping to control the pain and improve activities of daily living. Patient denies any motor or sensory deficits. Patient denies any fever or night sweats, denies any change in the bowel movements or urination. Physical Examination: -Constitutional: Cooperative. Not in acute distress . - Neurologic: Cranial nerve II to XII intact. No focal neurological deficits. - Psychatric: Alert & oriented x 3. Matching mood & appropriate affect. Judgment and insight intact. - Musculoskeletal: Cervical spine: Muscle bulk/ tone/ strength in the bilateral upper extremities normal Vertebral body tenderness to palpation over Spurling test positive Distraction test positive Facet loading test positive TTP Thoracic spine Muscle bulk / tone/ strength in the bilateral paraspinal muscles normal Vertebral body tender to palpation over T6 Facet loading test positive TTP Lumbar spine: Motor bulk/ tone/ strength lower extremities , thigh and legs : 5/5 Deep tendon reflexes : Normal Knee Jerk. Normal Ankle Jerk . Vertebral body tenderness to palpation Taut bands w twitch response over BL L2- S1 Lumbar Facet Loading Test positive over BL L4-L5, L5-S1 Straight Leg Raise: positive at 30 degrees right side/ left side Gaenslen's Test positive Sacral spine : Severe tenderness over the Sacroiliac joint: right side / left side Range of motion: Flexion of the lumbar spine <60 degrees Range of motion: Extension of the lumbar spine <20 degrees Gaenslen's Test positive right side / left side Casey test: positive right side / left side Thigh Thrust Test positive right side / left side Sacral Thrust Test positive right side / left side Imaging: MRI non contrast of the thoracic and lumbar spine from Aug 2023 reviewed Assessment and plan: Chronic mid and lower back pain secondary to radiculopathy, spondylosis with 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 The patient was counseled about risk of opioid use, psychological risk associated with opioids and was orally counseled to not overuse , divert or sell medications. Pt is to store medication in a safe location. The patient is counseled against driving while using narcotic medications and also not to use alcohol or any illicit recreational drugs. Patient verbalized understanding that the lack of compliance will result in failure to renew narcotic prescription(s) as well as possible discharge from the clinic Diagnoses, prognosis and treatment options including but not limited to physical therapy, surgical interventions, interventional therapies and medication management including narcotics and adjuvant medication were discussed. All patient questions answered MAPS reviewed and it was appropriate. Narcotic agreement up to date. Blood tox screen 10/24/23 Z02.83 reviewed. Repeat UDS 11/28/23 reviewed and consistent. Prescription refill for [place] 5/325mg #90 w 1 RF. I have spent less than 30 minutes on patient care today. Dr Holland was available by phone for the evaluation of this patient. The time was used to review the medical records including relevant urine studies and Prescription history (MAPs), review of the available imaging, evaluation and examination of the patient, coordination of care with the medical staff and if applicable referring physicians, as well as creation of the medical record PQRS Narrative: Smoking Status Former smoker Narcotic Agreement Date Signed 02/04/23 Hx Alcohol Use (MH) Yes: rare Home Medications: Ambulatory Orders Cholecalciferol [Vitamin D3 (25 Mcg = 1000 Iu)] 50 mcg PO DAILY 05/03/15 Levothyroxine Sodium 25 mcg PO QAM 10/01/19 Metoprolol Tartrate [Lopressor] 25 mg PO QAM 03/21/22 Aspirin 81 mg PO DAILY 07/12/22 Losartan [Cozaar] 50 mg PO 1200 06/28/23 ALPRAZolam [Xanax] 0.25 mg PO DAILY PRN 08/30/23 Mirabegron [Myrbetriq] 25 mg PO DAILY 01/14/24 Rosuvastatin Calcium [Crestor] 5 mg PO HS 01/14/24 HYDROcodone/APAP 5-325MG [[place] 5-325] 1 tab PO BID PRN 30 Days #60 tab 02/20/24 HYDROcodone/APAP 5-325MG [[place] 5-325] 1 tab PO TID PRN 30 Days #90 tab 02/20/24 Controlled Substance Measures - Controlled Substance Measures Is patient prescribed a controlled substance at discharge?: Yes When asked, does pt state using other controlled substances?: No If prescribed controlled substance>3 days was MAPS reviewed?: Yes
== END ==
LOC: PNWHC3 12:20
PROVIDERS: ATTEND Specialist
DX: M47.26 Other spondylosis with radiculopathy, lumbar region (principal); Z87.891 Personal history of nicotine dependence; Z79.891 Long term (current) use of opiate analgesic; Z88.2 Allergy status to sulfonamides; Z88.5 Allergy status to narcotic agent; Z91.09 Other allergy status, other than to drugs and biological substances
CPT/HCPCS: 99211

== ENCOUNTER → 2024-03-12 | Outpatient (CLI) | payer MEDICARE, BC ==
[2024-03-12 19:32] LABS: ALT 25 U/L (8-44); AST 23 U/L (13-35); Albumin 4.6 g/dL (3.8-4.9); Albumin/Globulin Ratio 1.77 Ratio (1.60-3.17); Alkaline Phosphatase 36 U/L (41-126); Blood Urea Nitrogen 32.2 mg/dL (9.0-27.0); Calcium 9.9 mg/dL (8.7-10.3); Carbon Dioxide 24.9 mmol/L (21.6-31.8); Chloride 96 mmol/L (96-109); Chol/HDL Ratio 4.25 Ratio; Globulin 2.6 g/dL (1.6-3.3); Glucose 109 mg/dL (70-110); LDL Cholesterol,Calculated 91.3 mg/dL (0.0-131.0); Potassium 4.5 mmol/L (3.5-5.5); Sodium 134 mmol/L (135-145); Total Bilirubin 0.3 mg/dL (0.3-1.2); Total Protein 7.2 g/dL (6.2-8.2)
== END | disposition home or self-care (01) ==
LOC: LABWHC1 15:14
PROVIDERS: ATTEND Internal Medicine Interventional Cardiology
DX: E78.2 Mixed hyperlipidemia (principal)
CPT/HCPCS: 36415; 80053; 80061

== ENCOUNTER → 2024-03-13 | Outpatient (CLI) | payer MEDICARE, BC ==
[2024-03-13 11:58] VITALS: BP 127/67; PULSE 50; RESP 16; TEMP 96.9
[2024-03-13] MEDS: DENOSUMAB 60 MG/ML 1 ML SYRINGE SQ ONE (11:59)
== END ==
LOC: PROCWHC3 11:47
PROVIDERS: ATTEND Internal Medicine
DX: M81.0 Age-related osteoporosis without current pathological fracture (principal)
CPT/HCPCS: 96372; J0897

== ENCOUNTER 2024-04-30 12:43 | Observation (INO) | payer MEDICARE, BC ==
[2024-04-30] MEDS: SODIUM CHLORIDE 0.9% 1,000 ML IV STA (13:20)
[2024-04-30] MEDS: MECLIZINE 12.5 MG TAB PO STA (13:22)
[2024-04-30] MEDS: ONDANSETRON 4 MG/2 ML VIAL IVP STA (13:25)
[2024-04-30 13:45] LABS: Basophils % (A) 1 %; Eosinophils # (A) 0.2 k/uL (0-0.7); Eosinophils % (A) 5 %; HCT 43.4 % (34.0-46.0); HGB 14.5 gm/dL (11.4-16.0); Lymphocytes # (A) 1.3 k/uL (1.0-4.8); Lymphocytes % (A) 27 %; MCH 30.7 pg (25.0-35.0); MCHC 33.5 g/dL (31.0-37.0); MCV 91.7 fL (80.0-100.0); Monocytes # (A) 0.3 k/uL (0-1.0); Monocytes % (A) 6 %; Neutrophils # (A) 2.8 k/uL (1.3-7.7); Neutrophils % (A) 60 %; Platelet Count 245 k/uL (150-450); RBC 4.74 m/uL (3.80-5.40); RDW 13.1 % (11.5-15.5); WBC 4.7 k/uL (3.8-10.6)
[2024-04-30 14:07] LABS: ALT 19 U/L (4-34); AST 23 U/L (14-36); African American GFR (CKD) >90 (>60 ml/min/1.73 sqM); Albumin 4.3 g/dL (3.5-5.0); Alkaline Phosphatase 34 U/L (38-126); Anion Gap 13 mmol/L; Blood Urea Nitrogen 20 mg/dL (7-17); Carbon Dioxide 22 mmol/L (22-30); Chloride 99 mmol/L (98-107); Glucose 92 mg/dL (74-99); Non-African American GFR(CKD) 81 (>60 ml/min/1.73 sqM); Potassium 4.5 mmol/L (3.5-5.1); Sodium 134 mmol/L (137-145); Total Bilirubin 0.7 mg/dL (0.2-1.3); Total Protein 6.7 g/dL (6.3-8.2)
--- NOTE | 2024-04-30 14:19 | CT ---
EXAMINATION TYPE: CT brain wo con DATE OF EXAM: 04/30/2024 COMPARISON: None CLINICAL INDICATION: Female, 83 years old with history of dizziness; PHH, Dizziness CT DLP: 1086.4 mGycm Automated exposure control for dose reduction was used. Findings: The ventricles, basal cisterns and sulci over convexities are moderately enlarged consistent with mod erate generalized atrophy. There is moderate decreased density in the periventricular white matter consistent with chronic ische teresa white matter demyelination. There is no mass effect or shift in midline structures. There is no acute intra or extra-axial hemorrhage. The posterior fossa including the brainstem, fourth ventricle and cerebellar pontine angles appear no rmal. Intraorbital contents appear normal and symmetric. There is moderate to marked chronic inflammatory change in the left maxillary sinus and mild chronic inflammatory change in the right maxillary sinus. The mastoid air cells are well aerated. The calvarium is intact. IMPRESSION: 1. No acute bleed or mass effect. 2. Moderate senescent changes as described above. 3. Chronic maxillary sinusitis, left greater than right. [facility], , 04/30/2024 2:16 PM
[2024-04-30 14:28] LABS: Influenza A Not Detected (Not Detectd); Influenza B Not Detected (Not Detectd); RSV Not Detected (Not Detectd)
--- NOTE | 2024-04-30 14:36 | ED ---
Dizziness HPI - General Chief Complaint: Dizziness Stated Complaint: dizziness Time Seen by Provider: 04/30/24 13:04 Source: patient, EMS, RN notes reviewed Mode of arrival: EMS Limitations: no limitations - History of Present Illness Initial Comments: 83-year-old female presents emergency department via EMS for complaint of dizziness. Patient states has been having intermittent episodes last several days states it got much worse. She does complain of associated headache. Denies any focal weakness today she has generalized weakness denies any chest pain, shortness of breath this time. Denies any fevers chills no significant cough or colic symptoms mild congestion noted. Patient states she is nauseated when she is dizzy. She denies any back pain, flank pain no urinary symptoms. - Related Data Home Medications Medication Instructions Recorded Confirmed Cholecalciferol [Vitamin D3 (25 50 mcg PO DAILY 05/03/15 03/13/24 Mcg = 1000 Iu)] Levothyroxine Sodium 25 mcg PO QAM 10/01/19 03/13/24 Metoprolol Tartrate [Lopressor] 25 mg PO QAM 03/21/22 03/13/24 Aspirin 81 mg PO DAILY 07/12/22 03/13/24 Losartan [Cozaar] 50 mg PO 1200 06/28/23 03/13/24 ALPRAZolam [Xanax] 0.25 mg PO DAILY PRN 08/30/23 03/13/24 Mirabegron [Myrbetriq] 25 mg PO DAILY 01/14/24 03/13/24 Rosuvastatin Calcium [Crestor] 5 mg PO HS 01/14/24 03/13/24 Previous Rx's Medication Instructions Recorded HYDROcodone/APAP 5-325MG [[place] 1 tab PO BID PRN 30 Days #60 tab 02/20/24 5-325] HYDROcodone/APAP 5-325MG [[place] 1 tab PO TID PRN 30 Days #90 tab 02/20/24 5-325] Allergies Allergy/AdvReac Type Severity Reaction Status Date / Time nickel Allergy develops Verified 04/30/24 12:58 scar tissue implants only Sulfa (Sulfonamide Allergy Rash/Hives Verified 04/30/24 12:58 Antibiotics) codeine AdvReac Nausea & Verified 04/30/24 12:58 Vomiting Review of Systems ROS Statement: Those systems with pertinent positive or pertinent negative responses have been documented in the HPI. ROS Other: All systems not noted in ROS Statement are negative. 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 Osteoporosis. "Scar tissue with implants." hx. heartburn History of Any Multi-Drug Resistant Organisms: None Reported Past Surgical History: Section, Coronary Bypass/CABG, Heart Catheterization, Hysterectomy, Joint Replacement, Orthopedic Surgery, Tonsillectomy Additional Past Surgical History / Comment(s): Quadruple bypass in November 2021. CERVICAL FUSION FROM C3-7. 5 total neck surgeries. Bilateral KNEE REPLACEMENTS WITH (3 left total knee surgeries,1 right knee). EGD. Bilateral cataract surgery. Colonoscopy. Has had epidurals for pain, and "nerve burning." Past Anesthesia/Blood Transfusion Reactions: No Reported Reaction Additional Past Anesthesia/Blood Transfusion Reaction / Comment(s): No problem with transfusions. Past Psychological History: No Psychological Hx Reported Smoking Status: Former smoker Past Alcohol Use History: None Reported Past Drug Use History: None Reported - Past Family History Mother Additional Family Medical History / Comment(s): Cerebral hemorrhage at age 51. Father Family Medical History: COPD Additional Family Medical History / Comment(s): Emphysema. General Exam Limitations: no limitations General appearance: alert, in no apparent distress Head exam: Present: atraumatic, normocephalic, normal inspection Eye exam: Present: normal appearance, PERRL, EOMI. Absent: scleral icterus, conjunctival injection, periorbital swelling ENT exam: Present: normal exam, normal oropharynx, mucous membranes moist Neck exam: Present: normal inspection, full ROM. Absent: tenderness, meningismus, lymphadenopathy Respiratory exam: Present: normal lung sounds bilaterally. Absent: respiratory distress, wheezes, rales, rhonchi, stridor Cardiovascular Exam: Present: regular rate, normal rhythm, normal heart sounds. Absent: systolic murmur, diastolic murmur, rubs, gallop, clicks GI/Abdominal exam: Present: soft, normal bowel sounds. Absent: distended, tenderness, guarding, rebound, rigid Neurological exam: Present: alert, oriented X3, CN II-XII intact, reflexes normal. Absent: motor sensory deficit Skin exam: Present: warm, dry, intact, normal color. Absent: rash Course Vital Signs 04/30/24 04/30/24 12:49 14:35 Temperature 98.2 F Pulse Rate 54 L 60 Respiratory 22 20 Rate Blood Pressure 200/90 181/77 O2 Sat by Pulse 99 97 Oximetry EKG Findings - EKG Comments: EKG Findings:: EKG performed at 13: 32 sinus bradycardia with a rate of 53 FL 167 QRS 122 QT/QTc 451/435 - EKG Results: EKG: interpreted by NICOLAS Medical Decision Making - Medical Decision Making Was pt. sent in by a medical professional or institution (, PA, CONSULTING PSYCHIATRIST, urgent care, hospital, or custodial...) When possible be specific @ -No Did you speak to anyone other than the patient for history (EMS, parent, family, police, friend...)? What history was obtained from this source @ -No Did you review nursing and triage notes (agree or disagree)? Why? @ -I reviewed and agree with nursing and triage notes Were old charts reviewed (outside hosp., previous admission, EMS record, old EKG, old radiological studies, urgent care reports/EKG's, custodial records)? Report findings @ -No old charts were reviewed Differential Diagnosis (chest pain, altered mental status, abdominal pain women, abdominal pain men, vaginal bleeding, weakness, fever, dyspnea, syncope, headac he, dizziness, GI bleed, back pain, seizure, CVA, palpatations, mental health, musculoskeletal)? @ -Differential Dizziness: Benign paroxysmal positional Vertigo, Meniere's disease, otitis media, acoustic neuroma, vertebrobasilar insufficiency, cerebellar stroke, encephalitis, hypovolemic, arrhythmia, coronary artery syndrome, anemia, this is not meant to be an all-inclusive list EKG interpreted by me (3pts min.). @ -As above X-rays interpreted by me (1pt min.). @ -None done CT interpreted by me (1pt min.). @ -CT brain showing chronic ischemic white matter changes, chronic sinusitis U/S interpreted by me (1pt. min.). @ -None done What testing was considered but not performed or refused? (CT, X-rays, U/S, labs)? Why? @ -None What meds were considered but not given or refused? Why? @ -None Did you discuss the management of the patient with other professionals (professionals i.e. , PA, CONSULTING PSYCHIATRIST, lab, RT, psych nurse, manager social work, molecular technologist, teacher, humane officer, case specialist)? Give summary @ -Dr. Solis for admission Was smoking cessation discussed for >3mins.? @ -No Was critical care preformed (if so, how long)? @ -No Were there social determinants of health that impacted care today? How? (Homelessness, low income, unemployed, alcoholism, drug addiction, transportation, low edu. Level, literacy, decrease access to med. care, skilled nursing, rehab)? @ -No Was there de-escalation of care discussed even if they declined (Discuss DNR or withdrawal of care, Hospice)? DNR status @ -No What co-morbidities impacted this encounter? (DM, HTN, Smoking, COPD, CAD, Cancer, CVA, ARF, Chemo, Hep., AIDS, mental health diagnosis, sleep apnea, morbid obesity)? @ -None Was patient admitted / discharged? Hospital course, mention meds given and route, prescriptions, significant lab abnormalities, going to OR and other pertinent info. @ -[Admitted patient did have initial relief after Antivert but dizzy spells, vertigo type symptoms persist unsteady on her feet. Patient will be admitted for neurology evaluation. Undiagnosed new problem with uncertain prognosis? @ -No Drug Therapy requiring intensive monitoring for toxicity (Heparin, Nitro, Insulin, Cardizem)? @ -No Were any procedures done? @ -No Diagnosis/symptom? @ -intractable dizziness, vertigo Acute, or Chronic, or Acute on Chronic? @ -Acute Uncomplicated (without systemic symptoms) or Complicated (systemic symptoms)? @ -Complicated Side effects of treatment? @ -No Exacerbation, Progression, or Severe Exacerbation? @ -No Poses a threat to life or bodily function? How? (Chest pain, [place], [place], pneumonia, PE, COPD, DKA, ARF, appy, cholecystitis, CVA, Diverticulitis, Homicidal, Suicidal, threat to staff... and all critical care pts) @ -No - Lab Data Result diagrams: 04/30/24 13:21 04/30/24 13:21 Lab Results 04/30/24 04/30/24 04/30/24 Range/Units 13:21 13:21 13:21 WBC 4.7 (3.8-10.6) k/uL RBC 4.74 (3.80-5.40) m/uL Hgb 14.5 (11.4-16.0) gm/dL Hct 43.4 (34.0-46.0) % MCV 91.7 (80.0-100.0) fL MCH 30.7 (25.0-35.0) pg MCHC 33.5 (31.0-37.0) g/dL RDW 13.1 (11.5-15.5) % Plt Count 245 (150-450) k/uL MPV 7.0 Neutrophils % 60 % Lymphocytes % 27 % Monocytes % 6 % Eosinophils % 5 % Basophils % 1 % Neutrophils # 2.8 (1.3-7.7) k/uL Lymphocytes # 1.3 (1.0-4.8) k/uL Monocytes # 0.3 (0-1.0) k/uL Eosinophils # 0.2 (0-0.7) k/uL Basophils # 0.0 (0-0.2) k/uL Sodium 134 L (137-145) mmol/L Potassium 4.5 (3.5-5.1) mmol/L Chloride 99 (98-107) mmol/L Carbon Dioxide 22 (22-30) mmol/L Anion Gap 13 mmol/L BUN 20 H (7-17) mg/dL Creatinine 0.66 (0.52-1.04) mg/dL Est GFR (CKD-EPI)AfAm >90 (>60 ml/min/1.73 sqM) Est GFR (CKD-EPI)NonAf 81 (>60 ml/min/1.73 sqM) Glucose 92 (74-99) mg/dL Calcium 10.0 (8.4-10.2) mg/dL Magnesium 2.0 (1.6-2.3) mg/dL Total Bilirubin 0.7 (0.2-1.3) mg/dL AST 23 (14-36) U/L ALT 19 (4-34) U/L Alkaline Phosphatase 34 L (38-126) U/L Troponin I (0.000-0.034) ng/mL Total Protein 6.7 (6.3-8.2) g/dL Albumin 4.3 (3.5-5.0) g/dL Urine Color Colorless Urine Appearance Clear (Clear) Urine pH 7.0 (5.0-8.0) Ur Specific [place] 1.006 (1.001-1.035) Urine Protein Negative (Negative) Urine Glucose (UA) Negative (Negative) Urine Ketones Negative (Negative) Urine Blood Negative (Negative) Urine Nitrite Negative (Negative) Urine Bilirubin Negative (Negative) Urine Urobilinogen <2.0 (<2.0) mg/dL Ur Leukocyte Esterase Small H (Negative) Urine RBC <1 (0-5) /hpf Urine WBC 2 (0-5) /hpf Ur Squamous Epith Cells 1 (0-4) /hpf Influenza Type A (PCR) (Not Detectd) Influenza Type B (PCR) (Not Detectd) RSV (PCR) (Not Detectd) SARS-CoV-2 (PCR) (Not Detectd) 04/30/24 04/30/24 Range/Units 13:21 13:21 WBC (3.8-10.6) k/uL RBC (3.80-5.40) m/uL Hgb (11.4-16.0) gm/dL Hct (34.0-46.0) % MCV (80.0-100.0) fL MCH (25.0-35.0) pg MCHC (31.0-37.0) g/dL RDW (11.5-15.5) % Plt Count (150-450) k/uL MPV Neutrophils % % Lymphocytes % % Monocytes % % Eosinophils % % Basophils % % Neutrophils # (1.3-7.7) k/uL Lymphocytes # (1.0-4.8) k/uL Monocytes # (0-1.0) k/uL Eosinophils # (0-0.7) k/uL Basophils # (0-0.2) k/uL Sodium (137-145) mmol/L Potassium (3.5-5.1) mmol/L Chloride (98-107) mmol/L Carbon Dioxide (22-30) mmol/L Anion Gap mmol/L BUN (7-17) mg/dL Creatinine (0.52-1.04) mg/dL Est GFR (CKD-EPI)AfAm (>60 ml/min/1.73 sqM) Est GFR (CKD-EPI)NonAf (>60 ml/min/1.73 sqM) Glucose (74-99) mg/dL Calcium (8.4-10.2) mg/dL Magnesium (1.6-2.3) mg/dL Total Bilirubin (0.2-1.3) mg/dL AST (14-36) U/L ALT (4-34) U/L Alkaline Phosphatase (38-126) U/L Troponin I <0.012 (0.000-0.034) ng/mL Total Protein (6.3-8.2) g/dL Albumin (3.5-5.0) g/dL Urine Color Urine Appearance (Clear) Urine pH (5.0-8.0) Ur Specific [place] (1.001-1.035) Urine Protein (Negative) Urine Glucose (UA) (Negative) Urine Ketones (Negative) Urine Blood (Negative) Urine Nitrite (Negative) Urine Bilirubin (Negative) Urine Urobilinogen (<2.0) mg/dL Ur Leukocyte Esterase (Negative) Urine RBC (0-5) /hpf Urine WBC (0-5) /hpf Ur Squamous Epith Cells (0-4) /hpf Influenza Type A (PCR) Not Detected (Not Detectd) Influenza Type B (PCR) Not Detected (Not Detectd) RSV (PCR) Not Detected (Not Detectd) SARS-CoV-2 (PCR) Not Detected (Not Detectd) Disposition Clinical Impression: Dizziness, Difficulty in walking Disposition: ADMITTED IP TO THIS HOSP Condition: Fair Referrals: Severino Solis MD [Primary Care Provider] - 1-2 days Time of Disposition: 15:41
[2024-04-30 15:23] LABS: Appearance,Urine Clear (Clear); Bilirubin,Urine Negative (Negative); Blood,Urine Negative (Negative); Color,Urine Colorless; Glucose,Urine (UA) Negative (Negative); Ketones,Urine Negative (Negative); Leukocyte Esterase,Urine Small (Negative); Nitrite,Urine Negative (Negative); Protein,Urine Negative (Negative); RBC,Urine <1 /hpf (0-5); Specific Gravity,Urine 1.006 (1.001-1.035); Squamous Epithelial Cell,Urine 1 /hpf (0-4); Urobilinogen,Urine <2.0 mg/dL (<2.0); WBC,Urine 2 /hpf (0-5)
[2024-04-30] MEDS ORDERED: NALOXONE 0.4 MG/ML 1 ML VIAL IV PRN (15:42)
[2024-04-30] MEDS ORDERED: ONDANSETRON 4 MG/2 ML VIAL IVP PRN (15:42)
[2024-04-30] MEDS ORDERED: MECLIZINE 25 MG TAB PO PRN (15:43)
[2024-04-30] MEDS: SODIUM CHLORIDE 0.9% 1,000 ML IV SCH (16:22)
[2024-04-30] MEDS ORDERED: ALPRAZolam 0.25 MG TAB PO PRN (16:49)
[2024-04-30] MEDS ORDERED: HYDROcodone/APAP 5-325MG 1 EACH TAB PO PRN (16:49)
[2024-04-30 19:33] VITALS: RESP 17
[2024-04-30] MEDS: METOPROLOL TARTRATE 25 MG TAB PO SCH (19:58)
[2024-04-30] MEDS: ATORVASTATIN 10 MG TAB PO SCH (19:58)
[2024-04-30] MEDS: HYDROcodone/APAP 5-325MG 1 EACH TAB PO SCH (19:58)
[2024-05-01] MEDS: LEVOTHYROXINE 50 MCG TAB PO SCH (05:28)
--- NOTE | 2024-05-01 07:24 | P.HPIM ---
History of Present Illness H&P Date: 04/30/24 Sandra Nichole, is an 83-year-old female who presented to [facility] emergency room with a chief complaint of severe dizziness She was evaluated in the emergency room vital examination on presentation revealed a temperature of 98.2 pulse 54 respiration 22 blood pressure 200/90 pulse ox 99% on room air Laboratory data revealed a white blood count of 4.7 hemoglobin 14.5 platelet count 245 sodium 134 potassium 4.5 chloride 99 CO2 22 BUN 20 creatinine 0.66 troponin level 0.012 urine analysis revealed small leukocyte esterase influenza A and B RSV and COVID-19 PCR were all negative Testing in the emergency room revealed EKG done in the emergency room revealed sinus bradycardia with right bundle branch block, CT scan of the brain revealed no acute bleed or mass effect chronic maxillary sinusitis left greater than right Patient was admitted to medical floor for further evaluation and treatment Past Medical History Past Medical History: Coronary Artery Disease (CAD), GERD/Reflux, GI Bleed, Hyperlipidemia, Hypertension, Osteoarthritis (OA), Thyroid Disorder Additional Past Medical History / Comment(s): Hx of diverticular bleed, states had 5 blood transfusions, bleed "caused by pain medication use." 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 Osteoporosis. "Scar tissue with implants." hx. heartburn History of Any Multi-Drug Resistant Organisms: None Reported Past Surgical History: Section, Coronary Bypass/CABG, Heart Catheterization, Hysterectomy, Joint Replacement, Orthopedic Surgery, Tonsillectomy Additional Past Surgical History / Comment(s): Quadruple bypass in November 2021. CERVICAL FUSION FROM C3-7. 5 total neck surgeries. Bilateral KNEE REPLACEMENTS WITH (3 left total knee surgeries,1 right knee). EGD. Bilateral cataract surgery. Colonoscopy. Has had epidurals for pain, and "nerve burning." Past Anesthesia/Blood Transfusion Reactions: No Reported Reaction Additional Past Anesthesia/Blood Transfusion Reaction / Comment(s): No problem with transfusions. Past Psychological History: No Psychological Hx Reported Smoking Status: Former smoker Past Alcohol Use History: None Reported Past Drug Use History: None Reported - Past Family History Mother Additional Family Medical History / Comment(s): Cerebral hemorrhage at age 51. Father Family Medical History: COPD Additional Family Medical History / Comment(s): Emphysema. Medications and Allergies Home Medications Medication Instructions Recorded Confirmed Type Metoprolol Tartrate [Lopressor] 25 mg PO BID 03/21/22 04/30/24 History Losartan [Cozaar] 25 mg PO DAILY@1200 06/28/23 04/30/24 History ALPRAZolam [Xanax] 0.25 mg PO BID PRN 08/30/23 04/30/24 History Mirabegron [Myrbetriq] 25 mg PO DAILY 01/14/24 04/30/24 History Rosuvastatin Calcium [Crestor] 5 mg PO HS 01/14/24 04/30/24 History Calcium Carbonate [Calcium] 600 mg PO DAILY 04/30/24 04/30/24 History HYDROcodone/APAP 5-325MG [[place] 1 tab PO BID 04/30/24 04/30/24 History 5-325] HYDROcodone/APAP 5-325MG [[place] 1 tab PO DAILY PRN 04/30/24 04/30/24 History 5-325] Levothyroxine Sodium [Synthroid] 50 mcg PO AC-[id number] 04/30/24 04/30/24 History Omeprazole [PriLOSEC] 20 mg PO DAILY 04/30/24 04/30/24 History Vitamin D3(Unknown Dose) 1 tab PO DAILY 04/30/24 04/30/24 History Allergies Allergy/AdvReac Type Severity Reaction Status Date / Time nickel Allergy develops Verified 04/30/24 12:58 scar tissue implants only Sulfa (Sulfonamide Allergy Rash/Hives Verified 04/30/24 12:58 Antibiotics) codeine AdvReac Nausea & Verified 04/30/24 12:58 Vomiting Physical Exam Vitals: Vital Signs Temp Pulse Resp BP Pulse Ox 04/30/24 16:00 60 18 176/88 100 04/30/24 14:35 60 20 181/77 97 04/30/24 12:49 98.2 F 54 L 22 200/90 99 Intake and Output 04/30/24 04/30/24 04/30/24 06:59 14:59 22:59 Other: Weight 58.967 kg In general patient is alert and oriented x 3 in no distress HEENT head normocephalic and atraumatic Neck is supple no JVD no goiter no lymphadenopathy no carotid bruit Chest examination is clear to auscultation no crackles no wheezing Cardiac exam reveals regular heart sounds S1 and S2 no gallops no murmurs Abdomen is soft nontender no organomegaly with normal bowel sounds Extremity exam reveals no edema no cyanosis or clubbing Neurological examination reveals no gross focal deficits Results CBC & Chem 7: 04/30/24 13:21 04/30/24 13:21 Labs: Abnormal Lab Results - Last 24 Hours (Table) 04/30/24 04/30/24 Range/Units 13:21 13:21 Sodium 134 L (137-145) mmol/L BUN 20 H (7-17) mg/dL Alkaline Phosphatase 34 L (38-126) U/L Ur Leukocyte Esterase Small H (Negative) Assessment and Plan Plan: Severe intractable dizziness Underlying history of coronary artery disease status postcoronary artery bypass graft surgery Underlying history of hypertension Underlying history of hypothyroidism Underlying history of hyperlipidemia Underlying history of degenerative disc disease with chronic back pain At this time patient was seen and examined Home medications reviewed and reordered Patient was started on oral meclizine Neurology consultation was requested in the emergency room Will check echocardiogram and carotid Doppler Consult cardiology Will follow closely
--- NOTE | 2024-05-01 08:11 | US ---
EXAMINATION TYPE: US carotid duplex BILAT DATE OF EXAM: 05/01/2024 COMPARISON: US 2021 CLINICAL INDICATION: Female, 83 years old with history of Severe dizziness; Severe dizziness. Prior s moker, hyperlipidemia, hypertension. TECHNIQUE: Grayscale, color Doppler and spectral Doppler evaluation of the bilateral carotid systems and vertebral arteries. Indirect Doppler criteria was utilized. FINDINGS: EXAM MEASUREMENTS: RIGHT: Peak Systolic Velocity (PSV) cm/sec ----- Right CCA: 74.0 ----- Right ICA: 96.8 ----- Right ECA: 61.8 ICA/CCA ratio: 1.31 RIGHT: End Diastole cm/sec ----- Right CCA: 15.2 ----- Right ICA: 26.7 ----- Right ECA: 0.0 LEFT: Peak Systolic Velocity (PSV) cm/sec ----- Left CCA: 66.5 ----- Left ICA: 105 ----- Left ECA: 81.8 ICA/CCA ratio: 1.58 LEFT: End Diastole cm/sec ----- Left CCA: 16.6 ----- Left ICA: 37.3 ----- Left ECA: 6.8 VERTEBRALS (direction of flow): Right Vertebral: Antegrade Left Vertebral: Antegrade Rhythm: Normal BUS STEWARD NOTES: No elevated velocities. Plaque seen within bilateral carotids, bilateral bulbs, bilateral proximal ICA and ECA. IMPRESSION: No hemodynamically significant internal carotid artery stenosis on either side. Criteria for Assigning % of Stenosis / Diameter reduction (Estimation based on the indirect measurements of the internal carotid artery velocities (ICA PSV). 1. Normal (no stenosis)=ICA PSV < 125 cm/s: ratio < 2.0: ICA EDV<40 cm/s. 2. Less than 50% stenosis=ICA PSV < 125 cm/s: ratio < 2.0: ICA EDV<40 cm/s. 3. 50 to 69% stenosis=ICA PSV of 125 to 230 cm/s: ration 2.0 ? 4.0: ICA EDV 40-100 cm/s. 4. Greater than 70% stenosis to near occlusion= ICA PSV > 230 cm/s: ratio > 4.0: ICA EDV > 100 cm/s. 5. Near occlusion= ICA PSV velocities may be low or undetectable: variable ratio and ICA EDV. 6. Total occlusion=unable to detect flow. [facility], , 05/01/2024 8:09 AM
[2024-05-01] MEDS: MYRBETRIQ 25 MG PO SCH (08:29)
[2024-05-01] MEDS: PANTOPRAZOLE 40 MG TABLET PO SCH (08:31)
[2024-05-01] MEDS: CALCIUM CARBONATE 500 MG CHEWABLE PO SCH (08:31)
[2024-05-01] MEDS ORDERED: NON FORMULARY DRUG (Vitamin D3(Unknown Dose) 1 TAB) PO SCH (09:00)
--- NOTE | 2024-05-01 11:56 | P.CNNES ---
History of Present Illness Consult date: 05/01/24 Requesting physician: Chris Friend Reason for Consult: dizziness History of Present Illness: This is an 83-year-old woman who present emergency department because of dizziness. She stated that her dizziness has been going on for the past 1 week but yesterday she felt got worse. She felt it was worse with movement but alleviated with rest. She describes it as the room spinning. She had mild nausea but no vomiting. Denies any ringing in the ears or hearing loss. Denies any focal weakness. Denies any difficulty swallowing or any speech difficulty. She feels that her symptoms are drastically better today compared to yesterday. And she is able to move with therapy somewhat, and much better compared to yeste rday. She does not feel back to baseline. She does have underlying history of hypertension and she is on aspirin 81 mg. Denies any history of stroke. Some of the workup during this hospital visit consisted of: I reviewed the lab workup. CT of the head is reported as no acute bleed or mass effect. Carotid duplex is reported as no hemodynamically significant internal carotid artery stenosis on either side. Review of Systems As per HPI. 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 Osteoporosis. "Scar tissue with implants." hx. heartburn History of Any Multi-Drug Resistant Organisms: None Reported Past Surgical History: Section, Coronary Bypass/CABG, Heart Catheterization, Hysterectomy, Joint Replacement, Orthopedic Surgery, Tonsillectomy Additional Past Surgical History / Comment(s): Quadruple bypass in November 2021. CERVICAL FUSION FROM C3-7. 5 total neck surgeries. Bilateral KNEE REPLA CEMENTS WITH (3 left total knee surgeries,1 right knee). EGD. Bilateral cataract surgery. Colonoscopy. Has had epidurals for pain, and "nerve burning." Past Anesthesia/Blood Transfusion Reactions: No Reported Reaction Additional Past Anesthesia/Blood Transfusion Reaction / Comment(s): No problem with transfusions. Past Psychological History: No Psychological Hx Reported Smoking Status: Former smoker Past Alcohol Use History: None Reported Past Drug Use History: None Reported - Past Family History Mother Additional Family Medical History / Comment(s): Cerebral hemorrhage at age 51. Father Family Medical History: COPD Additional Family Medical History / Comment(s): Emphysema. Medications and Allergies Home Medications Medication Instructions Recorded Confirmed Type Metoprolol Tartrate [Lopressor] 25 mg PO BID 03/21/22 04/30/24 History Losartan [Cozaar] 25 mg PO DAILY@1200 06/28/23 04/30/24 History ALPRAZolam [Xanax] 0.25 mg PO BID PRN 08/30/23 04/30/24 History Mirabegron [Myrbetriq] 25 mg PO DAILY 01/14/24 04/30/24 History Rosuvastatin Calcium [Crestor] 5 mg PO HS 01/14/24 04/30/24 History Calcium Carbonate [Calcium] 600 mg PO DAILY 04/30/24 04/30/24 History HYDROcodone/APAP 5-325MG [[place] 1 tab PO BID 04/30/24 04/30/24 History 5-325] HYDROcodone/APAP 5-325MG [[place] 1 tab PO DAILY PRN 04/30/24 04/30/24 History 5-325] Levothyroxine Sodium [Synthroid] 50 mcg PO AC-BRKFST 04/30/24 04/30/24 History Omeprazole [PriLOSEC] 20 mg PO DAILY 04/30/24 04/30/24 History Vitamin D3(Unknown Dose) 1 tab PO DAILY 04/30/24 04/30/24 History Allergies Allergy/AdvReac Type Severity Reaction Status Date / Time nickel Allergy develops Verified 04/30/24 12:58 scar tissue implants only Sulfa (Sulfonamide Allergy Rash/Hives Verified 04/30/24 12:58 Antibiotics) codeine AdvReac Nausea & Verified 04/30/24 12:58 Vomiting Physical Examination - Vital Signs Vital Signs: Vital Signs Temp Pulse Pulse Pulse Pulse Pulse Pulse 05/01/24 10:35 61 72 56 L 05/01/24 08:56 05/01/24 08:00 05/01/24 07:00 97.8 F 59 L 05/01/24 02:34 77 05/01/24 02:00 98.3 F 75 04/30/24 19:58 77 04/30/24 19:30 98.4 F 77 04/30/24 17:13 64 04/30/24 16:00 60 04/30/24 14:35 60 04/30/24 12:49 98.2 F 54 L Resp BP BP BP BP BP Pulse Ox 05/01/24 10:35 162/71 166/89 176/66 05/01/24 08:56 134/73 05/01/24 08:00 17 05/01/24 07:00 17 184/77 99 05/01/24 02:34 17 05/01/24 02:00 17 148/82 97 04/30/24 19:58 17 04/30/24 19:30 17 120/75 99 04/30/24 17:13 18 180/91 100 04/30/24 16:00 18 176/88 100 04/30/24 14:35 20 181/77 97 04/30/24 12:49 22 200/90 99 Intake and Output 04/30/24 05/01/24 05/01/24 22:59 06:59 14:59 Intake Total 120 Balance 120 Intake: Oral 120 Other: Voiding Method Toilet Toilet Toilet # Voids 1 2 Weight 58.967 kg GENERAL: The patient is lying in bed and is not in acute distress. NEUROLOGICAL: Higher mental function: The patient is awake, alert, oriented to self, place and time. Patient is following commands. No aphasia and no neglect. Cranial nerves: The pupils are round, equal and reactive to light and accommodation. Visual garrison are full to confrontation throughout. Extraocular movement is intact no nystagmus is noted. Facial sensation is normal to touch throughout. The facial strength is normal throughout. Hearing is normal bilaterally to hand rub. Tongue is midline and moved [id number] without any difficulty. No dysarthria is noted. Shoulder shrug is normal bilaterally. Motor: walks with walker and not swaying towards one side or the other. The strength is 5 over 5 throughout. Normal tone and bulk. Cerebellum: Normal finger to nose bilaterally. Sensation: Sensation is normal to touch throughout. Reflexes (right/left): 2+ in uppers but refuses in the lower because of chronic pain (especially knee pain). Plantars are downgoing bilaterally. Results - Laboratory Findings CBC and BMP: 04/30/24 13:21 04/30/24 13:21 Abnormal Lab Findings: Abnormal Labs 04/30/24 04/30/24 13:21 13:21 Sodium 134 L BUN 20 H Alkaline Phosphatase 34 L Ur Leukocyte Esterase Small H Assessment and Plan Assessment: This is an 83-year-old woman who present emergency department because of dizziness for the last 1 week but worsened yesterday. She feels it is worse with movement and alleviated with rest. She had mild nausea. Today she feels drastically better. Acute vertigo and this seems more peripheral. Patient does not have any focal deficit and there is improvement today and unlikely central cause for her vertigo. History of hypertension Chronic low back pain Plan: Patient wants to pursue MRI with the brain and I notified her that it is not needed since her symptoms is improving but she still wants to pursue with the MRI Patient is on meclizine 25 mg 1 tablet 4 times daily as needed and I change it to 12.5 mg 3 times daily scheduled for 7 days and after that as needed. If MRI of the brain is unremarkable and patient continues to have dizziness then recommend the patient to follow-up with ENT as an outpatient as well as vestibular rehab therapy Patient is on her home dose of aspirin 81 mg. She is also on Lipitor 10 mg nightly. PT and OT are consulted Will defer the rest of the medical management to primary other specialist If MRI of the brain is unremarkable then no further neurological workup. Dr. Godfrey resume neurology service tomorrow if needed. Thank you for the consultation Time with Patient: Greater than 30
--- NOTE | 2024-05-01 12:54 | P.PN ---
Subjective Progress Note Date: 05/01/24 Sandra Nichole, is an 83-year-old female who presented to [facility] emergency room with a chief complaint of severe dizziness She was evaluated in the emergency room vital examination on presentation revealed a temperature of 98.2 pulse 54 respiration 22 blood pressure 200/90 pulse ox 99% on room air Laboratory data revealed a white blood count of 4.7 hemoglobin 14.5 platelet count 245 sodium 134 potassium 4.5 chloride 99 CO2 22 BUN 20 creatinine 0.66 troponin level 0.012 urine analysis revealed small leukocyte esterase influenza A and B RSV and COVID-19 PCR were all negative Testing in the emergency room revealed EKG done in the emergency room revealed sinus bradycardia with right bundle branch block, CT scan of the brain revealed no acute bleed or mass effect chronic maxillary sinusitis left greater than right Patient was admitted to medical floor for further evaluation and treatment On 05/01/2024 patient was seen and examined on the telemetry floor she reports some improvement in her dizziness there is no fever or chills no headache no chest pain no shortness of breath no cough no nausea or vomiting no abdominal pain no diarrhea no blood in the stools no burning with urination no frequency or urgency and no hematuria. She was evaluated by neurology and MRI of the b rain was ordered and will be completed today, will follow closely Objective - Vital Signs Vital signs: Vital Signs Temp 98.3 F 05/01/24 02:00 Pulse 77 05/01/24 02:34 Resp 17 05/01/24 02:34 BP 148/82 05/01/24 02:00 Pulse Ox 97 05/01/24 02:00 FiO2 Intake & Output 04/30/24 05/01/24 05/01/24 18:59 06:59 18:59 Intake Total 120 Balance 120 Weight 58.967 kg Intake: Oral 120 Other: Voiding Method Toilet Toilet # Voids 2 - Exam In general patient is alert and oriented x 3 in no distress HEENT head normocephalic and atraumatic Neck is supple no JVD no goiter no lymphadenopathy no carotid bruit Chest examination is clear to auscultation no crackles no wheezing Cardiac exam reveals regular heart sounds S1 and S2 no gallops no murmurs Abdomen is soft nontender no organomegaly with normal bowel sounds Extremity exam reveals no edema no cyanosis or clubbing Neurological examination reveals no gross focal deficits - Labs CBC & Chem 7: 04/30/24 13:21 04/30/24 13:21 Labs: Abnormal Lab Results - Last 24 Hours (Table) 04/30/24 04/30/24 Range/Units 13:21 13:21 Sodium 134 L (137-145) mmol/L BUN 20 H (7-17) mg/dL Alkaline Phosphatase 34 L (38-126) U/L Ur Leukocyte Esterase Small H (Negative) Assessment and Plan Plan: Severe intractable dizziness Underlying history of coronary artery disease status postcoronary artery bypass graft surgery Underlying history of hypertension Underlying history of hypothyroidism Underlying history of hyperlipidemia Underlying history of degenerative disc disease with chronic back pain At this time patient was seen and examined Home medications reviewed and reordered Patient was started on oral meclizine Neurology consultation was requested in the emergency room Will check echocardiogram and carotid Doppler Consult cardiology Will follow closely
[2024-05-01] MEDS: MECLIZINE 25 MG TAB PO SCH (13:04)
[2024-05-01] MEDS: ASPIRIN 81 MG PO SCH (13:04)
[2024-05-01] MEDS: LOSARTAN 25 MG TAB PO SCH (13:04)
--- NOTE | 2024-05-01 15:16 | MR ---
EXAMINATION TYPE: MR brain wo con DATE OF EXAM: 05/01/2024 3:07 PM COMPARISON: 04/30/2024. CLINICAL INDICATION: Female, 83 years old with history of vertigo; Vertigo TECHNIQUE: Multi planar, multi sequence imaging was performed through the brain including: T1, T2, In version recovery, Diffusion weighted imaging, and gradient echo imaging. No gadolinium was given. FINDINGS: Mild cerebral atrophy with proportional dilation of ventricular system. Scattered foci of high T2 s ignal intensity are seen within the periventricular white matter. Midline structures show no abnormal ity. Diffusion-weighted imaging shows no evidence of restricted diffusion. The susceptibility weighte d images do not reveal any evidence for micro-hemorrhage. The bone marrow signal is within normal limits. Paranasal sinuses and mastoid air cells: Mild scattered paranasal sinus disease. Visualized orbits: Orbital contents are intact. IMPRESSION: 1. No evidence of intracranial mass or acute/subacute infarct. 2. Nonspecific white matter changes, likely secondary to small vessel ischemic disease. [facility], , 05/01/2024 3:13 PM
[2024-05-01 15:35] VITALS: BP 145/77; PULSE 60; TEMP 98.5
--- NOTE | 2024-05-01 15:56 | CA ---
Transthoracic Echo Report Name: Sandra Nichole Age: 83 Gender: F : 1940 Exam Date: 05/01/2024 13:59 Exam Location: [facility] Ht (in): 61 Wt (lb): 130 Ordering Physician: Severino Solis MD Attending/Referring Phys: [place] Supervisor Rebecca Tineo RDCS Procedure CPT: Indications: severe dizziness Cardiac Hx: Technical Quality: Fair Contrast 1: Total Dose (mL): Contrast 2: Total Dose (mL): MEASUREMENTS (Male / Female) Normal Values 2D ECHO LV Diastolic Diameter PLAX 3.9 cm 4.2 - 5.9 / 3.9 - 5.3 cm LV Systolic Diameter PLAX 2.5 cm IVS Diastolic Thickness 1.3 cm 0.6 - 1.0 / 0.6 - 0.9 cm LVPW Diastolic Thickness 1.2 cm 0.6 - 1.0 / 0.6 - 0.9 cm LV Relative Wall Thickness 0.6 LVOT Diameter 1.6 cm LV Diastolic Volume MOD BP 76.6 cm??? 67 - 155 / 56 - 104 cm??? LV Systolic Volume MOD BP 35.2 cm??? 22 - 58 / 19 - 49 cm??? LV Ejection Fraction MOD BP 54.0 % >= 55 % LV Cardiac Index MOD BP 1419.1 cm???/min???m??? LV Diastolic Volume MOD 4C 71.2 cm??? LV Systolic Volume MOD 4C 28.3 cm??? LV Ejection Fraction MOD 4C 60.3 % LV Cardiac Index MOD 4C 1471.2 cm???/min???m??? LV Diastolic Length 4C 7.1 cm LV Systolic Length 4C 6.0 cm LV Diastolic Volume MOD 2C 79.4 cm??? LV Systolic Volume MOD 2C 40.6 cm??? LV Ejection Fraction MOD 2C 48.8 % LV Cardiac Index MOD 2C 1329.1 cm???/min???m??? LV Diastolic Length 2C 7.4 cm LV Systolic Length 2C 6.5 cm LA Volume 60.7 cm??? 18 - 58 / 22 - 52 cm??? LA Volume Index 37.8 cm???/m??? 16 - 28 cm???/m??? M-MODE Aortic Root Diameter MM 3.2 cm LA Systolic Diameter MM 3.7 cm LA Ao Ratio MM 1.2 DOPPLER AV Peak Velocity 149.3 cm/s AV Peak Gradient 8.9 mmHg AV Mean Velocity 89.6 cm/s AV Mean Gradient 3.7 mmHg AV Velocity Time Integral 32.7 cm LVOT Peak Velocity 96.9 cm/s LVOT Peak Gradient 3.8 mmHg LVOT Velocity Time Integral 22.8 cm LVOT Stroke Volume 46.7 cm??? LVOT Stroke Volume Index 29.7 ml/m??? LVOT Cardiac Index 1600.2 cm???/min???m??? AV Area Cont Eq vti 1.4 cm??? AV Area Cont Eq pk 1.3 cm??? MV Area PHT 3.4 cm??? Mitral E Point Velocity 65.9 cm/s Mitral A Point Velocity 99.3 cm/s Mitral E to A Ratio 0.7 MV Deceleration Time 222.7 ms MV E' Velocity 5.3 cm/s Mitral E to MV E' Ratio 12.4 TR Peak Velocity 205.0 cm/s TR Peak Gradient 16.8 mmHg FINDINGS Left Ventricle Moderately increased left ventricular wall thickness. Left ventricular cavity size normal. No obvious regional wall motion abnormalities. Abnormal (paradoxical) septal motion consistent with postoperative state. Left ventricular ejection fraction is estimated at 50-55 %. Grade 1 diastolic dysfunction. Right Ventricle Mild right ventricular dilatation. Right Atrium Normal right atrial size. Left Atrium Mildly increased left atrial volume. Mitral Valve Structurally normal mitral valve. No mitral stenosis. Mitral valve thickened. Mild mitral annular calcification. Mild mitral regurgitation. Aortic Valve Trileaflet aortic valve. No aortic valve stenosis or regurgitation. Tricuspid Valve Structurally normal tricuspid valve. Mild tricuspid regurgitation. Pulmonic Valve Structurally normal pulmonic valve. Pericardium No pericardial effusion. Aorta Normal size aortic root and proximal ascending aorta. CONCLUSIONS Left ventricular ejection fraction is estimated at 50-55 %. Grade 1 diastolic dysfunction. Abnormal (paradoxical) septal motion consistent with postoperative state. No obvious regional wall motion abnormalities. Moderately increased left ventricular wall thickness. Mild mitral annular calcification. Mild mitral regurgitation. Mild tricuspid regurgitation. Previewed by: Dr Manuel Guerrero (Electronically Signed) Final Date: 01 May 2024 15:55
--- NOTE | 2024-05-01 16:42 | P.CRDCN ---
History of Present Illness Consult date: 05/01/24 History of present illness: HISTORY OF PRESENTING ILLNESS: 83-year-old female presented to [facility] because of concerns of severe dizziness. On admission she was noticed to have elevated blood pressure 200 over 90 mmHg, Cardiology was consulted to rule out cardiogenic etiology for dizziness. Denies any prior history of CAD status post CABG. She is known to Dr. Velez. She recently had a heart cath done in July 2023 which showed patent CHEN and vein graft to q[place]in vessels. She has severe three-vessel qawalangin vessel disease. No interventions were done. She also has history of hypertension, dyslipidemia, esophageal stricture, PAD and previous smoking. Diagostics: Admission Labs: Hb 14.5, BUN 20, creatinine 0.6, troponin was negative, Admission EKG: Sinus rhythm with right bundle branch block Cardio relavant imaging: Chest x-ray does not show any signs of pulmonary congestion or consolidation Orthostatic vital signs were not positive Prior cardiac testing: Heart cath 08/2023 shows patent CHEN to LAD, vein graft to OM and diagonal and vein graft to PDA REVIEW OF SYSTEMS: 14 point review of system is negative except what is mentioned above in HPI. PHYSICAL EXAMINATION: Neck: Brisk carotid upstroke, no jugular venous distention. Lungs: Clear to auscultation. Heart: Regular rate and rhythm, S1-S2, , no murmur or rub. Abdomen: Soft nontender, positive bowel sounds. Extremities: No edema, intact distal pulses. Neuro: Alert, oritented, no focal deficits. Detailed neuro exam was not performed. ASSESSMENT: # Severe dizziness, likely peripheral vertigo. # CAD status post CABG with patent vein graft and CHEN graft patient of heart cath from 08/2023 # Essential hypertension # Dyslipidemia PLAN: Continue aspirin, Lipitor, losartan 25 mg daily, metoprolol 25 mg twice daily. Monitor blood pressure and heart rate Echocardiogram was ordered. Echo shows EF of 50 to 55%, grade 2 diastolic dysfunction, paradoxical septal motion, moderate LVH and mild valvular regurgitation. If patient's blood pressure and heart rate and symptomatically patient is feeling better, she can be cleared from cardiac standpoint. Follow-up with Dr. Velez on outpatient basis. Cardiology team will sign off. Manuel Guerrero MD, FACC, RPVI Thank you for allowing [facility] to participate in this patient's care. Feel free to reach out in case of any followup questions. 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 Osteoporosis. "Scar tissue with implants." hx. heartburn History of Any Multi-Drug Resistant Organisms: None Reported Past Surgical History: Section, Coronary Bypass/CABG, Heart Catheterization, Hysterectomy, Joint Replacement, Orthopedic Surgery, Tonsillectomy Additional Past Surgical History / Comment(s): Quadruple bypass in November 2021. CERVICAL FUSION FROM C3-7. 5 total neck surgeries. Bilateral KNEE REPLACEMENTS WITH (3 left total knee surgeries,1 right knee). EGD. Bilateral cataract surgery. Colonoscopy. Has had epidurals for pain, and "nerve burning." Past Anesthesia/Blood Transfusion Reactions: No Reported Reaction Additional Past Anesthesia/Blood Transfusion Reaction / Comment(s): No problem with transfusions. Past Psychological History: No Psychological Hx Reported Smoking Status: Former smoker Past Alcohol Use History: None Reported Past Drug Use History: None Reported - Past Family History Mother Additional Family Medical History / Comment(s): Cerebral hemorrhage at age 51. Father Family Medical History: COPD Additional Family Medical History / Comment(s): Emphysema. Medications and Allergies Home Medications Medication Instructions Recorded Confirmed Type Metoprolol Tartrate [Lopressor] 25 mg PO BID 03/21/22 04/30/24 History Losartan [Cozaar] 25 mg PO DAILY@1200 06/28/23 04/30/24 History ALPRAZolam [Xanax] 0.25 mg PO BID PRN 08/30/23 04/30/24 History Mirabegron [Myrbetriq] 25 mg PO DAILY 01/14/24 04/30/24 History Rosuvastatin Calcium [Crestor] 5 mg PO HS 01/14/24 04/30/24 History Calcium Carbonate [Calcium] 600 mg PO DAILY 04/30/24 04/30/24 History HYDROcodone/APAP 5-325MG [[place] 1 tab PO BID 04/30/24 04/30/24 History 5-325] HYDROcodone/APAP 5-325MG [[place] 1 tab PO DAILY PRN 04/30/24 04/30/24 History 5-325] Levothyroxine Sodium [Synthroid] 50 mcg PO AC-BRKFST 04/30/24 04/30/24 History Omeprazole [PriLOSEC] 20 mg PO DAILY 04/30/24 04/30/24 History Vitamin D3(Unknown Dose) 1 tab PO DAILY 04/30/24 04/30/24 History Allergies Allergy/AdvReac Type Severity Reaction Status Date / Time nickel Allergy develops Verified 04/30/24 12:58 scar tissue implants only Sulfa (Sulfonamide Allergy Rash/Hives Verified 04/30/24 12:58 Antibiotics) codeine AdvReac Nausea & Verified 04/30/24 12:58 Vomiting Physical Exam Vitals: Vital Signs Temp Pulse Pulse Pulse Pulse Pulse Pulse 05/01/24 15:00 98.5 F 60 05/01/24 14:00 05/01/24 10:35 61 72 56 L 05/01/24 08:56 05/01/24 08:00 05/01/24 07:00 97.8 F 59 L 05/01/24 02:34 77 05/01/24 02:00 98.3 F 75 04/30/24 19:58 77 04/30/24 19:30 98.4 F 77 04/30/24 17:13 64 Resp BP BP BP BP BP Pulse Ox 05/01/24 15:00 17 145/77 97 05/01/24 14:00 17 05/01/24 10:35 162/71 166/89 176/66 05/01/24 08:56 134/73 05/01/24 08:00 17 05/01/24 07:00 17 184/77 99 05/01/24 02:34 17 05/01/24 02:00 17 148/82 97 04/30/24 19:58 17 04/30/24 19:30 17 120/75 99 04/30/24 17:13 18 180/91 100 Intake and Output 05/01/24 05/01/24 05/01/24 06:59 14:59 22:59 Intake Total 60 Balance 60 Intake: Oral 60 Other: Voiding Method Toilet Toilet # Voids 2 4 Results 04/30/24 13:21 04/30/24 13:21 Current Medications Generic Name Dose Route Start Last Admin Trade Name Freq PRN Reason Stop Dose Admin Hydrocodone Bitart/Acetaminophen 1 each 04/30/24 21:00 05/01/24 08:31 Hydrocodone/Apap 5-325mg 1 Each Tab PO 1 each BID DEBORAH Administration Hydrocodone Bitart/Acetaminophen 1 each 04/30/24 16:49 Hydrocodone/Apap 5-325mg 1 Each Tab PO DAILY PRN Pain Alprazolam 0.25 mg 04/30/24 16:49 Alprazolam 0.25 Mg Tab PO BID PRN Anxiety Aspirin 81 mg 05/01/24 10:45 05/01/24 13:04 Aspirin 81 Mg PO 81 mg DAILY DEBORAH Administration Atorvastatin Calcium 10 mg 04/30/24 21:00 04/30/24 19:58 Atorvastatin 10 Mg Tab PO 10 mg HS DEBORAH Administration Calcium Carbonate/Glycine 500 mg 05/01/24 09:00 05/01/24 08:31 Calcium Carbonate 500 Mg Chewable PO 500 mg DAILY DEBORAH Administration Sodium Chloride 1,000 mls @ 75 mls/hr 04/30/24 15:45 05/01/24 06:31 Saline 0.9% IV Not Given .[id number] [facility] Levothyroxine Sodium 50 mcg 05/01/24 07:30 05/01/24 05:28 Levothyroxine 50 Mcg Tab PO 50 mcg AC-BRKFST DEBORAH Administration Losartan Potassium 25 mg 05/01/24 12:00 05/01/24 13:04 Losartan 25 Mg Tab PO 25 mg DAILY@1200 DEBORAH Administration Meclizine HCl 12.5 mg 05/01/24 12:00 05/01/24 13:04 Meclizine 25 Mg Tab PO 05/08/24 11:59 12.5 mg TID DEBORAH Administration Metoprolol Tartrate 25 mg 04/30/24 21:00 05/01/24 10:43 Metoprolol Tartrate 25 Mg Tab PO 25 mg BID DEBORAH Administration Naloxone HCl 0.2 mg 04/30/24 15:42 Naloxone 0.4 Mg/Ml 1 Ml Vial IV Q2M PRN Opioid Reversal Myrbetriq ( 25 mg 05/01/24 09:00 05/01/24 08:29 Mirabegron) 25 Mg PO Not Given Tab.Er.24hr DAILY [facility] Ondansetron HCl 4 mg 04/30/24 15:42 Ondansetron 4 Mg/2 Ml Vial IVP Q8HR PRN Nausea And Vomiting Pantoprazole Sodium 40 mg 05/01/24 09:00 05/01/24 08:31 Pantoprazole 40 Mg Tablet PO 40 mg DAILY DEBORAH Administration Intake and Output 05/01/24 05/01/24 05/01/24 06:59 14:59 22:59 Intake Total 60 Balance 60 Intake: Oral 60 Other: Voiding Method Toilet Toilet # Voids 2 4 04/30/24 13:21 04/30/24 13:21
--- NOTE | 2024-05-01 18:04 | P.DS ---
Providers Date of admission: 04/30/24 15:50 Expected date of discharge: 05/01/24 Attending physician: Severino Solis Consults: 04/30/24 15:42 Consult Physician Urgent Consulting Provider: Phoenix Douglass Consult Reason/Comments: Intractable dizziness Do you want consulting provider notified?: Yes 04/30/24 16:49 Consult Physician Routine Consulting Provider: Raúl Velez Consult Reason/Comments: Severe dizziness Do you want consulting provider notified?: Yes Primary care physician: Severino Solis [facility] Course: Diagnosis on discharge: Severe intractable dizziness Underlying history of coronary artery disease status postcoronary artery bypass graft surgery Underlying history of hypertension Underlying history of hypothyroidism Underlying history of hyperlipidemia Underlying history of degenerative disc disease with chronic back pain Hospital course: Sandra Nichole, is an 83-year-old female who presented to [facility] emergency room with a chief complaint of severe dizziness She was evaluated in the emergency room vital examination on presentation revealed a temperature of 98.2 pulse 54 respiration 22 blood pressure 200/90 pulse ox 99% on room air Laboratory data revealed a white blood count of 4.7 hemoglobin 14.5 platelet count 245 sodium 134 potassium 4.5 chloride 99 CO2 22 BUN 20 creatinine 0.66 troponin level 0.012 urine analysis revealed small leukocyte esterase influenza A and B RSV and COVID-19 PCR were all negative Testing in the emergency room revealed EKG done in the emergency room revealed sinus bradycardia with right bundle branch block, CT scan of the brain revealed no acute bleed or mass effect chronic maxillary sinusitis left greater than right Patient was admitted to medical floor for further evaluation and treatment On 05/01/2024 patient was seen and examined on the telemetry floor she reports some improvement in her dizziness there is no fever or chills no headache no chest pain no shortness of breath no cough no nausea or vomiting no abdominal pain no diarrhea no blood in the stools no burning with urination no frequency or urgency and no hematuria. She was evaluated by neurology and MRI of the brain was ordered and will be completed today, will follow closely Patient Condition at Discharge: Fair Plan - Discharge Summary Discharge Rx Participant: No New Discharge Prescriptions: New Aspirin 81 mg PO DAILY 30 Days #30 tab Meclizine [Antivert] 12.5 mg PO TID 30 Days #90 tab Continue Metoprolol Tartrate [Lopressor] 25 mg PO BID ALPRAZolam [Xanax] 0.25 mg PO BID PRN PRN Reason: Anxiety Mirabegron [Myrbetriq] 25 mg PO DAILY HYDROcodone/APAP 5-325MG [[place] 5-325] 1 tab PO BID Losartan [Cozaar] 25 mg PO DAILY@1200 Rosuvastatin Calcium [Crestor] 5 mg PO HS Levothyroxine Sodium [Synthroid] 50 mcg PO AC-BRKFST Omeprazole [PriLOSEC] 20 mg PO DAILY HYDROcodone/APAP 5-325MG [[place] 5-325] 1 tab PO DAILY PRN PRN Reason: Pain Vitamin D3(Unknown Dose) 1 tab PO DAILY Calcium Carbonate [Calcium] 600 mg PO DAILY Discharge Medication List Metoprolol Tartrate [Lopressor] 25 mg PO BID 03/21/22 [History] Losartan [Cozaar] 25 mg PO DAILY@1200 06/28/23 [History] ALPRAZolam [Xanax] 0.25 mg PO BID PRN 08/30/23 [History] Mirabegron [Myrbetriq] 25 mg PO DAILY 01/14/24 [History] Rosuvastatin Calcium [Crestor] 5 mg PO HS 01/14/24 [History] Calcium Carbonate [Calcium] 600 mg PO DAILY 04/30/24 [History] HYDROcodone/APAP 5-325MG [[place] 5-325] 1 tab PO BID 04/30/24 [History] HYDROcodone/APAP 5-325MG [[place] 5-325] 1 tab PO DAILY PRN 04/30/24 [History] Levothyroxine Sodium [Synthroid] 50 mcg PO AC-BRKFST 04/30/24 [History] Omeprazole [PriLOSEC] 20 mg PO DAILY 04/30/24 [History] Vitamin D3(Unknown Dose) 1 tab PO DAILY 04/30/24 [History] Aspirin 81 mg PO DAILY 30 Days #30 tab 05/01/24 [Rx] Meclizine [Antivert] 12.5 mg PO TID 30 Days #90 tab 05/01/24 [Rx] Follow up Appointment(s)/Referral(s): Severino Solis MD [Primary Care Provider] - 1-2 days
== END 2024-05-01 18:38 | disposition home or self-care (01) ==
LOC: EC 12:43 → 6NMEDSUR 15:50
PROVIDERS: ADMIT Internal Medicine; ATTEND Internal Medicine
DX: R42 Dizziness and giddiness (principal); R26.2 Difficulty in walking, not elsewhere classified; I25.10 Atherosclerotic heart disease of native coronary artery without angina pectoris; I10 Essential (primary) hypertension; E78.5 Hyperlipidemia, unspecified; K21.9 Gastro-esophageal reflux disease without esophagitis; E03.9 Hypothyroidism, unspecified; G89.29 Other chronic pain; M54.50 Low back pain, unspecified; Z11.52 Encounter for screening for COVID-19; Z95.1 Presence of aortocoronary bypass graft; Z87.891 Personal history of nicotine dependence; Z79.82 Long term (current) use of aspirin; Z79.890 Hormone replacement therapy; Z79.899 Other long term (current) drug therapy; Z88.2 Allergy status to sulfonamides; Z88.5 Allergy status to narcotic agent
CPT/HCPCS: 96361; 96374; 99285; 36415; 93005; 93306; 97161; 97166; 80053; 83735; 84484; 85025; 81001; 87636; 93880; 70450; 70551; G0378 ×2; J2405

== ENCOUNTER → 2024-07-06 | Outpatient (CLI) | payer MEDICARE, BC ==
[2024-07-06 12:14] VITALS: BP 94/60; PULSE 59; RESP 15; TEMP 98.2
--- NOTE | 2024-07-06 13:30 | P.PAINPG ---
Objective - Vital Signs Vital signs: Vital Signs Temp 98.2 F 07/06/24 12:11 Pulse 59 L 07/06/24 12:11 Resp 15 07/06/24 12:11 BP 94/60 07/06/24 12:11 Pulse Ox 96 07/06/24 12:11 FiO2 Intake & Output 07/05/24 07/06/24 07/06/24 18:59 06:59 18:59 Weight 59.421 kg PQRS Measure Charge Sheet Mode of Arrival: Ambulatory Comment: A 83 yr old female with a history of severe and chronic mid and lower back pain secondary to thoracolumbar radiculopathy, spondylosis with facet arthropathy without myelopathy presents today for evaluation for medication refills. Pain level is provoked at 7-8 /10 in intensity, constant, localized in the lumbar spine, predominantly axial, dull in character without shooting pain. Pain is provoked by walking/ standing for periods of 10 min or more. Pain is alleviated with PT integrated w massage x 6 wks in Mar 2023, physician guided home exercise/ stretching regimen daily since Mar 2023 (thoracic and lumbar), injections, heat, ice, medications, topicals, repositioning and rest. Interventional procedures include JUAN L1-L2, BL RFA L3 - L5 x4 (03/22, 10/21, 05/25, 01/17/24), BL T6-T8 (Mar 2021) Patient is currently on [place] 5/325mg #90, Ibu Patient denies any side effects of the medication(s), denies excessive drowsiness or sleepiness, denies suicidal ideation and reports that the current pain medication is helping to control the pain and improve activities of daily living. Patient denies any motor or sensory deficits. Patient denies any fever or night sweats, denies any change in the bowel movements or urination. Physical Examination: -Constitutional: Cooperative. Not in acute distress . - Neurologic: Cranial nerve II to XII intact. No focal neurological deficits. - Psychatric: Alert & oriented x 3. Matching mood & appropriate affect. Judgment and insight intact. - Musculoskeletal: Cervical spine: Muscle bulk/ tone/ strength in the bilateral upper extremities normal Vertebral body tenderness to palpation over Spurling test positive Distraction test positive Facet loading test positive TTP Thoracic spine Muscle bulk / tone/ strength in the bilateral paraspinal muscles normal Vertebral body tender to palpation over T6 Facet loading test positive TTP Lumbar spine: Motor bulk/ tone/ strength lower extremities , thigh and legs : 5/5 Deep tendon reflexes : Normal Knee Jerk. Normal Ankle Jerk . Vertebral body tenderness to palpation Taut bands w twitch response over BL L2- S1 Lumbar Facet Loading Test positive over BL L4-L5, L5-S1 Straight Leg Raise: positive at 30 degrees right side/ left side Gaenslen's Test positive Sacral spine : Severe tenderness over the Sacroiliac joint: right side / left side Range of motion: Flexion of the lumbar spine <60 degrees Range of motion: Extension of the lumbar spine <20 degrees Gaenslen's Test positive right side / left side Casey test: positive right side / left side Thigh Thrust Test positive right side / left side Sacral Thrust Test positive right side / left side Imaging: MRI non contrast of the thoracic and lumbar spine from Aug 2023 reviewed Assessment and plan: Chronic mid and lower back pain secondary to radiculopathy, spondylosis with 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 The patient was counseled about risk of opioid use, psychological risk associated with opioids and was orally counseled to not overuse , divert or sell medications. Pt is to store medication in a safe location. The patient is counseled against driving while using narcotic medications and also not to use alcohol or any illicit recreational drugs. Patient verbalized understanding that the lack of compliance will result in failure to renew narcotic prescription(s) as well as possible discharge from the clinic Diagnoses, prognosis and treatment options including but not limited to physical therapy, surgical interventions, interventional therapies and medication management including narcotics and adjuvant medication were discussed. All patient questions answered . MAPS reviewed and it was appropriate. Narcotic agreement renewed . UDS from 05/11/24 reviewed and consistent. Prescription refill for Cascade 5/325mg #90 w 1 RF. I have spent less than 30 minutes on patient care today. Dr Holland was available by phone for the evaluation of this patient. The time was used to review the medical records including relevant urine studies and Prescription history (MAPs), review of the available imaging, evaluation and examination of the patient, coordination of care with the medical staff and if applicable referring physicians, as well as creation of the medical record - Pain Location Lower Back Non-Pharmacological Interventions: Heat, Ice, Relaxation Technique Pharmacological Interventions: Medication, Topical Medication PQRS Narrative: Smoking Status Former smoker Narcotic Agreement Date Signed 05/11/24 Blood Pressure 94/60 Pain Intensity [Lower Back] 8 Scale Used Numeric (1 - 10) Hx Alcohol Use (MH) Yes: rare Home Medications: Ambulatory Orders Metoprolol Tartrate [Lopressor] 25 mg PO BID 03/21/22 Losartan [Cozaar] 25 mg PO DAILY@1200 06/28/23 ALPRAZolam [Xanax] 0.25 mg PO BID PRN 08/30/23 Mirabegron [Myrbetriq] 25 mg PO DAILY 01/14/24 Rosuvastatin Calcium [Crestor] 5 mg PO HS 01/14/24 Calcium Carbonate [Calcium] 600 mg PO DAILY 04/30/24 Levothyroxine Sodium [Synthroid] 50 mcg PO AC-BRKFST 04/30/24 Omeprazole [PriLOSEC] 20 mg PO DAILY 04/30/24 Vitamin D3(Unknown Dose) 1 tab PO DAILY 04/30/24 Aspirin 81 mg PO DAILY 30 Days #30 tab 05/01/24 Meclizine [Antivert] 12.5 mg PO TID 30 Days #90 tab 05/01/24 Diclofenac Sodium Gel [Voltaren 1% Gel] 50 gm TOPICAL BID 30 Days #1 each 05/11/24 HYDROcodone/APAP 5-325MG [[place] 5-325] 1 tab PO TID PRN 30 Days #90 tab 07/06/24 HYDROcodone/APAP 5-325MG [[place] 5-325] 1 tab PO TID PRN 30 Days #90 tab 07/06/24 Controlled Substance Measures - Controlled Substance Measures Is patient prescribed a controlled substance at discharge?: Yes When asked, does pt state using other controlled substances?: No If prescribed controlled substance>3 days was MAPS reviewed?: Yes
== END ==
LOC: PNWHC3 11:47
PROVIDERS: ATTEND Specialist
DX: M47.26 Other spondylosis with radiculopathy, lumbar region (principal); Z88.5 Allergy status to narcotic agent; Z88.2 Allergy status to sulfonamides; Z91.048 Other nonmedicinal substance allergy status; Z87.891 Personal history of nicotine dependence
CPT/HCPCS: 99212

== ENCOUNTER → 2024-07-13 | Outpatient (CLI) | payer MEDICARE, BC ==
--- NOTE | 2024-07-13 10:22 | MM ---
Reason for Exam: Screening (asymptomatic). Last mammogram was performed 5 year(s) and 3 month(s) ago. Patient History: Menarche at age 10. First Full-Term at age 18. Left ovary removed at age 50. Right ovary removed at age 50. Hysterectomy at age 50. Postmenopausal. Estrogen for 6 years from age 48 until age 54. Progesterone for 6 years from age 48 until age 54. 01/26/2014, Benign Core Biopsy on the left side. Risk Values: May 5 year model risk: 1.4%. NCI Lifetime model risk: 1.4%. Prior Study Comparison: 04/05/2017 Bilateral Screening Mammogram, [facility]. 04/07/2018 Bilateral Screening Mammogram, [facility]. 04/16/2019 Bilateral Screening Mammogram, [facility]. Tissue Density: The breasts are heterogeneously dense, which may obscure small masses. Findings: Analyzed By CAD. Mammotome biopsy clips in the left breast are redemonstrated. There are benign-appearing round and vascular calcifications bilaterally redemonstrated. Benign-appearing bilateral axillary lymph nodes are again seen. There is no suspicious new group of microcalcifications or new suspicious mass in either breast. Overall Assessment: Benign, BI-RAD 2 Management: Screening Mammogram of both breasts in 1 year. . Patient should continue monthly self-breast exams. A clinical breast exam by your physician is recommended on an annual basis. This exam should not preclude additional follow-up of suspicious palpable abnormalities. Note on Amy scores and lifetime risk: 1. A Amy score greater than 3% is considered moderate risk. If this is the case, consider specialist referral to assess eligibility for a risk reducing agent. 2. If overall lifetime risk for the development of breast cancer is 20% or higher, the patient may qualify for future screening with alternating mammogram and breast MRI. [facility], , 07/13/2024 10:19 AM. Electronically signed and approved by: Rufus Gallardo M.D.
== END | disposition home or self-care (01) ==
LOC: RADMAMWWP 09:42
PROVIDERS: ATTEND Internal Medicine
DX: Z12.31 Encounter for screening mammogram for malignant neoplasm of breast (principal); R92.333 Mammographic heterogeneous density, bilateral breasts; Z78.0 Asymptomatic menopausal state
CPT/HCPCS: 77063; 77067

== ENCOUNTER → 2024-09-14 | Outpatient (CLI) | payer MEDICARE, BC ==
[2024-09-14 10:26] LABS: ALT 20 U/L (8-44); AST 20 U/L (13-35); Albumin/Globulin Ratio 1.67 Ratio (1.60-3.17); Alkaline Phosphatase 34 U/L (41-126); Blood Urea Nitrogen 17.6 mg/dL (9.0-27.0); Calcium 9.4 mg/dL (8.7-10.3); Carbon Dioxide 27.5 mmol/L (21.6-31.8); Chloride 101 mmol/L (96-109); Chol/HDL Ratio 3.58 Ratio; Globulin 2.4 g/dL (1.6-3.3); Glucose 100 mg/dL (70-110); LDL Cholesterol,Calculated 93.6 mg/dL (0.0-131.0); Potassium 4.4 mmol/L (3.5-5.5); Sodium 136 mmol/L (135-145); Total Bilirubin 0.3 mg/dL (0.3-1.2); Total Protein 6.4 g/dL (6.2-8.2)
== END | disposition home or self-care (01) ==
LOC: LABWHC1 07:53
PROVIDERS: ATTEND Nurse Practitioner Adult Health
DX: I10 Essential (primary) hypertension (principal); E78.2 Mixed hyperlipidemia
CPT/HCPCS: 36415; 80053; 80061

== ENCOUNTER → 2024-09-17 | Outpatient (CLI) | payer MEDICARE, BC ==
[2024-09-17 13:37] VITALS: BP 123/74; PULSE 63; RESP 16; TEMP 97.7
--- NOTE | 2024-09-17 16:23 | P.PAINPG ---
Objective - Vital Signs Vital signs: Vital Signs Temp 97.7 F 09/17/24 13:31 Pulse 63 09/17/24 13:31 Resp 16 09/17/24 13:31 BP 123/74 09/17/24 13:31 Pulse Ox 95 09/17/24 13:31 FiO2 Intake & Output 09/16/24 09/17/24 09/17/24 18:59 06:59 18:59 Weight 60.328 kg PQRS Measure Charge Sheet Mode of Arrival: Ambulatory Comment: A 83 yr old female with a history of severe and chronic mid and lower back pain secondary to thoracolumbar radiculopathy, spondylosis with facet arthropathy without myelopathy presents today for evaluation for medication refills and evaluation s/p BL RFA L4-L5/ L5-S1. Pt states she experienced 80% pain relief s/p procedure. Pain level is provoked at 6 /10 in intensity, constant, localized in the lumbar spine, predominantly axial, dull in character without shooting pain. Pain is provoked by walking/ standing for periods of 10 min or more. Pain is alleviated with PT integrated w massage x 6 wks in Mar 2023, physician guided home exercise/ stretching regimen daily since Mar 2023 (thoracic and lumbar), injections, heat, ice, medications, topicals, repositioning and rest. Interventional procedures include JUAN L1-L2, BL RFA L3 - L5 x5 (03/22, 10/21, 05/25, 01/17/24, 08/21/24), BL T6-T8 (Mar 2021) Patient is currently on [place] 5/325mg #90, Ibu Patient denies any side effects of the medication(s), denies excessive drowsiness or sleepiness, denies suicidal ideation and reports that the current pain medication is helping to control the pain and improve activities of daily living. Patient denies any motor or sensory deficits. Patient denies any fever or night sweats, denies any change in the bowel movements or urination. Physical Examination: -Constitutional: Cooperative. Not in acute distress . - Neurologic: Cranial nerve II to XII intact. No focal neurological defi cits. - Psychatric: Alert & oriented x 3. Matching mood & appropriate affect. Judgment and insight intact. - Musculoskeletal: Cervical spine: Muscle bulk/ tone/ strength in the bilateral upper extremities normal Vertebral body tenderness to palpation over Spurling test positive Distraction test positive Facet loading test positive TTP Thoracic spine Muscle bulk / tone/ strength in the bilateral paraspinal muscles normal Vertebral body tender to palpation over T6 Facet loading test positive TTP Lumbar spine: Motor bulk/ tone/ strength lower extremities , thigh and legs : 5/5 Deep tendon reflexes : Normal Knee Jerk. Normal Ankle Jerk . Vertebral body tenderness to palpation Taut bands w twitch response over BL L2- S1 Lumbar Facet Loading Test positive over BL L4-L5, L5-S1 Straight Leg Raise: positive at 30 degrees right side/ left side Gaenslen's Test positive Sacral spine : Severe tenderness over the Sacroiliac joint: right side / left side Range of motion: Flexion of the lumbar spine <60 degrees Range of motion: Extension of the lumbar spine <20 degrees Gaenslen's Test positive right side / left side Casey test: positive right side / left side Thigh Thrust Test positive right side / left side Sacral Thrust Test positive right side / left side Imaging: MRI non contrast of the thoracic and lumbar spine from Aug 2023 reviewed Assessment and plan: Chronic mid and lower back pain secondary to radiculopathy, spondylosis with 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 The patient was counseled about risk of opioid use, psychological risk associated with opioids and was orally counseled to not overuse , divert or sell medications. Pt is to store medication in a safe location. The patient is counseled against driving while using narcotic medications and also not to use alcohol or any illicit recreational drugs. Patient verbalized understanding that the lack of compliance will result in failure to renew narcotic prescription(s) as well as possible discharge from the clinic Diagnoses, prognosis and treatment options including but not limited to physical therapy, surgical interventions, interventional therapies and medication management including narcotics and adjuvant medication were discussed. All patient questions answered . MAPS reviewed and it was appropriate. Narcotic agreement renewed . UDS from 05/11/24 reviewed and consistent. Prescription refill for [place] 5/325mg #90 w 1 RF. I have spent less than 30 minutes on patient care today. Dr Holland was available by phone for the evaluation of this patient. The time was used to review the medical records including relevant urine studies and Prescription history (MAPs), review of the available imaging, evaluation and examination of the patient, coordination of care with the medical staff and if applicable referring physicians, as well as creation of the medical record - Pain Location Bilateral Lower Back Non-Pharmacological Interventions: Home Exercise, Massage, Physical Therapy Pharmacological Interventions: Epidural, Scheduled Medication PQRS Narrative: Smoking Status Former smoker Narcotic Agreement Date Signed 05/11/24 Blood Pressure 123/74 Pain Intensity [Bilateral 5 Lower Back] Scale Used Numeric (1 - 10) Hx Alcohol Use (MH) Yes: rare Home Medications: Ambulatory Orders Metoprolol Tartrate [Lopressor] 25 mg PO BID 03/21/22 Losartan [Cozaar] 25 mg PO DAILY@1200 06/28/23 ALPRAZolam [Xanax] 0.25 mg PO BID PRN 08/30/23 Mirabegron [Myrbetriq] 50 mg PO DAILY 01/14/24 Rosuvastatin Calcium [Crestor] 5 mg PO HS 01/14/24 Calcium Carbonate [Calcium] 600 mg PO DAILY 04/30/24 Levothyroxine Sodium [Synthroid] 50 mcg PO AC-BRKFST 04/30/24 Omeprazole [PriLOSEC] 20 mg PO DAILY 04/30/24 Vitamin D3(Unknown Dose) 1 tab PO DAILY 04/30/24 Aspirin 81 mg PO DAILY 30 Days #30 tab 05/01/24 Meclizine [Antivert] 12.5 mg PO TID 30 Days #90 tab 05/01/24 Diclofenac Sodium Gel [Voltaren 1% Gel] 50 gm TOPICAL DIRECTED PRN 08/19/24 HYDROcodone/APAP 5-325MG [[place] 5-325] 1 tab PO TID PRN 30 Days #90 tab 09/17/24 HYDROcodone/APAP 5-325MG [[place] 5-325] 1 tab PO TID PRN 30 Days #90 tab 09/17/24 Controlled Substance Measures - Controlled Substance Measures Is patient prescribed a controlled substance at discharge?: Yes When asked, does pt state using other controlled substances?: No If prescribed controlled substance>3 days was MAPS reviewed?: Yes
== END ==
LOC: PNWHC3 13:10
PROVIDERS: ATTEND Specialist
DX: M47.26 Other spondylosis with radiculopathy, lumbar region (principal); Z79.891 Long term (current) use of opiate analgesic; Z87.891 Personal history of nicotine dependence; Z88.2 Allergy status to sulfonamides; Z88.5 Allergy status to narcotic agent; Z91.048 Other nonmedicinal substance allergy status
CPT/HCPCS: 99212